=== PATIENT | male | born 1945 ===

== ENCOUNTER 2018-06-12 16:28 | Inpatient (IN) | payer OTHER ==
--- NOTE | 2018-06-12 16:40 | PDOC ---
History of Present Illness - General Stated Complaint: PAIN Time Seen by Provider: 06/12/18 16:39 - History of Present Illness Initial Comments: 06/12/18 16:50 Mr. Monteiro is a 72 yo male w/ pmh of HTN, HLD, COPD, DM, osteomyelitis, heart disease, GERD, anemia, depression, and known stage 4 sacral ulcer who presents for evaluation of 3 day history of fever, refusal to eat, and altered mental status. Health care proxy who is with him reports she has been unable to get him to eat despite several attempts and that she is worried about his ulcer and change in mental status. Past History - Past Medical History Allergies/Adverse Reactions: Allergies Allergy/AdvReac Type Severity Reaction Status Date / Time levofloxacin Allergy Verified 06/12/18 17:35 Penicillins Allergy Verified 06/12/18 17:35 Home Medications: Ambulatory Orders Acetaminophen [Tylenol -] 1,000 mg PO Q8H 06/12/18 Ascorbic Acid [Vitamin C -] 500 mg PO BID 06/12/18 Ferrous Sulfate 325 mg PO DAILY 06/12/18 Glycerin Suppository Adult - 1 each RC DAILY PRN 06/12/18 Insulin Detemir [Levemir Flextouch] 5 unit SQ HS 06/12/18 Metoprolol Tartrate [Lopressor -] 25 mg PO DAILY 06/12/18 Multivitamin [Multiple Vitamins] 1 each PO DAILY 06/12/18 Pantoprazole Sodium [Protonix] 40 mg PO DAILY 06/12/18 Polyethylene Glycol 3350 [Glycolax] 17 gm PO DAILY 06/12/18 Sennosides [Senna Laxative] 17.2 mg PO HS 06/12/18 Silver Sulfadiazine 1% Top Cr [Silvadene -] 1 applic TP BID 06/12/18 Zinc Oxide 20% Topical Oint 1 applic TP BID 06/12/18 Anemia: Yes Asthma: No Cancer: No Cardiac Disorders: Yes (artherosclerotic heart disease) CVA: No COPD: Yes CHF: No Dementia: No Diabetes: Yes GI Disorders: Yes (gerd,colitis, c diff,) Disorders: No HTN: Yes Hypercholesterolemia: Yes Liver Disease: No Psychiatric Problems: Yes (depressive) Seizures: No Thyroid Disease: No - Surgical History Abdominal Surgery: No Appendectomy: No Cardiac Surgery: No Cholecystectomy: No Lung Surgery: No Neurologic Surgery: No Orthopedic Surgery: No - Suicide/Smoking/Psychosocial Hx Smoking History: Never smoked Have you smoked in the past 12 months: No Hx Alcohol Use: No Drug/Substance Use Hx: No Substance Use Type: None Hx Substance Use Treatment: No Review of Systems - Review of Systems Comments:: 06/12/18 17:22 Unable to obtain further. *Physical Exam - Physical Exam Comments: 06/12/18 17:22 GENERAL: +Patient emaciated. Awake, alert, in no acute distress HEAD: No signs of trauma, normocephalic, atraumatic EYES: PERRLA, EOMI, sclera anicteric, conjunctiva clear ENT: Auricles normal inspection, hearing grossly normal, nares patent, oropharynx clear without exudates. Moist mucosa NECK: Normal ROM, supple, no lymphadenopathy, JVD, or masses LUNGS: No distress, speaks full sentences, clear to auscultation bilaterally HEART: Regular rate and rhythm, normal S1 and S2, no murmurs, rubs or gallops, peripheral pulses normal and equal bilaterally. ABDOMEN: Soft, nontender, normoactive bowel sounds. No guarding, no rebound. No masses EXTREMITIES: +Sacral decubitus ulcer 2x 3x 3cm deep; Normal inspection, Normal range of motion, no edema. No clubbing or cyanosis. NEUROLOGICAL: Cranial nerves II through XII grossly intact. Normal speech, normal gait, no focal sensorimotor deficits SKIN: Warm, Dry, normal turgor, no rashes or lesions noted. ED Treatment Course - LABORATORY CBC & Chemistry Diagram: 06/12/18 17:22 06/12/18 17:22 Medical Decision Making - Medical Decision Making 06/12/18 17:52 Mr. Monteiro is a 72 yo male w/ pmh as described who presents for evaluation of AMS w/ fevers chills and known infection source of grade 4 sacral ulcer; rectal temp 101.1; sepsis workup started. 06/12/18 20:09 Patient noted to be septic w/ elevated lactate at 4.1. 2L NS bolus given along w / IV antibiotics per previous sensitivities. Wound and blood cultures sent for evaluation. Patient admitted to hospitalist for further care. Laboratory Results - last 24 hr 06/12/18 06/12/18 06/12/18 17:22 17:22 17:22 WBC 9.9 RBC 3.21 L Hgb 8.5 L Hct 25.9 L MCV 80.8 D MCH 26.5 MCHC 32.8 RDW 19.6 H Plt Count 130 L D MPV 7.1 L Absolute Neuts (auto) 9.2 H Total Counted 100 Neutrophils % 93.1 H D Neutrophils % (Manual) 88.0 H D Band Neutrophils % 4.0 Lymphocytes % 3.9 L D Lymphocytes % (Manual) 5.0 L D Monocytes % 2.8 L Monocytes % (Manual) 4 Eosinophils % 0.0 D Basophils % 0.2 Nucleated RBC % 0 Hypochromia 3+ Platelet Estimate Adequate Platelet Comment No clumping noted Anisocytosis 2+ Microcytosis 1+ Macrocytosis 1+ PT with INR 12.80 INR 1.13 H PTT (Actin FS) 26.5 VBG pH 7.41 POC VBG pCO2 37.8 L POC VBG pO2 31.6 Mixed VBG HCO3 23.4 Sodium Potassium Chloride Carbon Dioxide Anion Gap BUN Creatinine Creat Clearance w eGFR Random Glucose Lactic Acid Calcium Total Bilirubin AST ALT Alkaline Phosphatase Troponin I Total Protein Albumin 06/12/18 06/12/18 06/12/18 17:22 17:22 17:22 WBC RBC Hgb Hct MCV MCH MCHC RDW Plt Count MPV Absolute Neuts (auto) Total Counted Neutrophils % Neutrophils % (Manual) Band Neutrophils % Lymphocytes % Lymphocytes % (Manual) Monocytes % Monocytes % (Manual) Eosinophils % Basophils % Nucleated RBC % Hypochromia Platelet Estimate Platelet Comment Anisocytosis Microcytosis Macrocytosis PT with INR INR PTT (Actin FS) VBG pH POC VBG pCO2 POC VBG pO2 Mixed VBG HCO3 Sodium 133 L Potassium 5.0 Chloride 99 Carbon Dioxide 25 Anion Gap 9 BUN 64 H Creatinine 1.6 H Creat Clearance w eGFR 42.46 Random Glucose 172 H Lactic Acid 4.1 H* Calcium 8.7 Total Bilirubin 1.0 AST 157 H ALT 44 Alkaline Phosphatase 683 H Troponin I < 0.02 Cancelled Total Protein 6.6 Albumin 2.0 L 06/12/18 19:04 WBC RBC Hgb Hct MCV MCH MCHC RDW Plt Count MPV Absolute Neuts (auto) Total Counted Neutrophils % Neutrophils % (Manual) Band Neutrophils % Lymphocytes % Lymphocytes % (Manual) Monocytes % Monocytes % (Manual) Eosinophils % Basophils % Nucleated RBC % Hypochromia Platelet Estimate Platelet Comment Anisocytosis Microcytosis Macrocytosis PT with INR INR PTT (Actin FS) VBG pH POC VBG pCO2 POC VBG pO2 Mixed VBG HCO3 Sodium Potassium Chloride Carbon Dioxide Anion Gap BUN Creatinine Creat Clearance w eGFR Random Glucose Lactic Acid 3.2 H* Calcium Total Bilirubin AST ALT Alkaline Phosphatase Troponin I Total Protein Albumin *DC/Admit/Observation/Transfer Diagnosis at time of Disposition: Sacral decubitus ulcer, stage IV Sepsis Qualifiers: Sepsis type: sepsis due to unspecified organism Qualified Code(s): A41.9 - Sepsis, unspecified organism - Discharge Dispostion Decision to Admit order: Yes - Referrals - Patient Instructions - Post Discharge Activity
[2018-06-12] MEDS ORDERED: ACETAMINOPHEN 1000 MG/100 ML VIAL (NON FORMULARY) IVPB ONE (16:55)
[2018-06-12] MEDS ORDERED: SODIUM CHLORIDE 1,000 ML IV STA ×3 (16:55→19:47)
[2018-06-12] MEDS ORDERED: VANCOMYCIN 1,000 MG in DEXTROSE 5%-WATER - 250 ML IVPB ONE ×2 (17:09→17:15)
[2018-06-12] MEDS ORDERED: ERTAPENEM SODIUM 1 GM in SODIUM CHLORIDE 50 ML IVPB ONE (17:09)
[2018-06-12] MEDS ORDERED: VANCOMYCIN 1 GRAM (PRE-DOCKED) 1,000 MG/250 ML BAG IVPB ONE (17:25)
[2018-06-12] MEDS ORDERED: ACETAMINOPHEN INJECTION 100 ML IVPB ONE (17:25)
[2018-06-12 17:28] LABS: BASO % 0.2 % (0-2.0); HEMATOCRIT 25.9 % (35.4-49); HEMOGLOBIN 8.5 GM/dL (11.7-16.9); LYMPH % 3.9 % (8-40); MCH 26.5 pg (25.7-33.7); MCHC 32.8 g/dl (32.0-35.9); MEAN CELL VOLUME 80.8 fl (80-96); MEAN PLT VOLUME 7.1 fl (7.5-11.1); MONO % 2.8 % (3.8-10.2); NEUT % 93.1 % (42.8-82.8); PLATELET COUNT 130 K/MM3 (134-434); RBC 3.21 M/mm3 (4.00-5.60); RDW 19.6 % (11.9-15.9); VENOUS PC02 37.8 mmHg (38-52); VENOUS PH 7.41 (7.32-7.42); VENOUS PO2 31.6 mmHg (28-48); WHITE BLOOD COUNT 9.9 K/mm3 (4.0-10.0)
--- NOTE | 2018-06-12 17:40 | PDOC ---
Attending Attestation - HPI HPI: 06/12/18 18:12 History obtained from prior charts and health care proxy. The patient is a 72-year-old male from [facility] with past medical history significant for CVA (2012; R sided residual weakness), HTN, HLD, Type 1 DM, osteomyelitis, anemia, COPD and Atherosclerotic heart disease presents to the emergency department via [facility] with AMS and loss of appetite. Patient presents to the ED with his health care proxy (HCP). As per HCP, for the past 3 days, the patients been refusing to eat, despite several attempts by her. Allergies: levofloxacin and Penicillins. Unable to obtain details from the patient. Social history: No past or present use of tobacco, alcohol, or recreational drug use. Surgical history: None reported PCP: Dr. Correa GI: Dr. Alston - Medical Decision Making 06/12/18 18:14 Documentation prepared by Esther Fletcher, acting as medical record librarians teacher for Fern Soriano MD. <Esther Fletcher - Last Filed: 06/12/18 18:12> - Resident Resident Name: Cameron Gallegos - ED Attending Attestation I have performed the following: I have examined & evaluated the patient, The case was reviewed & discussed with the resident, I agree w/resident's findings & plan, Exceptions are as noted - HPI HPI: 06/12/18 17:41 Mr Monteiro is a 72 yo M h/o CVA (2012, right-sided weakness), recurrent C. diff colitis, mild dementia HTN, HLD, IDDM, osteomyelitis, chronic sacral ulcer, chronic right heel eschar s/p recent recent admission where he was found to be anemic (refused transfusion or endoscopy), septic related to UTI (Proteus, treated with Ertapenam), Hyperkalemic and JORDAN. Pt treated and transferred to SNF. Pt health care proxy is bedside and states she was concerned because of altered mental status AND refusal to eat - Physicial Exam PE: 06/12/18 19:48 on examination Pt is awake and alert Responsive to painful stimuli Pale appearing EOMI RRR CTA B/L - Medical Decision Making 06/12/18 19:05 Laboratory Tests 06/12/18 06/12/18 06/12/18 17:22 17:22 17:22 WBC 9.9 Hgb 8.5 L Hct 25.9 L Plt Count 130 L D Neutrophils % 93.1 H D Band Neutrophils % 4.0 INR 1.13 H VBG pH 7.41 POC VBG pCO2 37.8 L POC VBG pO2 31.6 Mixed VBG HCO3 23.4 Sodium Potassium Chloride Carbon Dioxide BUN Creatinine Random Glucose Lactic Acid AST ALT Troponin I 06/12/18 06/12/18 17:22 17:22 WBC Hgb Hct Plt Count Neutrophils % Band Neutrophils % INR VBG pH POC VBG pCO2 POC VBG pO2 Mixed VBG HCO3 Sodium 133 L Potassium 5.0 Chloride 99 Carbon Dioxide 25 BUN 64 H Creatinine 1.6 H Random Glucose 172 H Lactic Acid 4.1 H* AST 157 H ALT 44 Troponin I < 0.02 Pt presents with ams and weakness Unable to obtain urine (straight cath'ed at least 3 times, last time with coude , no urine) Labs demonstrate like hemo concentration given increased creatinine, elevated BUN, hgb now 8.5 from 7.5 when he left the hospital) No leukocytosis however pt febrile Will cover broadly currently not being treated for C diff (no diarrhea) no cough or hypoxia, CXR <Fern Soriano - Last Filed: 06/12/18 19:54>
[2018-06-12] MEDS: MEROPENEM 1 GM in DEXTROSE 5%-WATER 100 ML IVPB ONE (17:53)
[2018-06-12 17:56] LABS: INR 1.13 (0.83-1.09); PROTHROMBIN TIME (PATIENT) 12.8 SEC (9.7-13.0)
[2018-06-12 17:59] LABS: ACTIVATED PTT 26.5 SECONDS (25.2-36.5)
[2018-06-12 18:15] LABS: ANISOCYTOSIS 2+; MACROCYTOSIS 1+; PLATELET ESTIMATE ADEQUATE
[2018-06-12 18:46] LABS: ALK PHOS 683 U/L (45-117); ANION GAP 9 MMOL/L (8-16); BLOOD UREA NITROGEN 64 mg/dL (7-18); CALCIUM 8.7 mg/dL (8.5-10.1); CHLORIDE 99 mmol/L (98-107); CO2 25 mmol/L (21-32); CREATININE 1.6 mg/dL (0.55-1.3); GLUCOSE,RANDOM 172 mg/dL (74-106); SGOT/AST 157 U/L (15-37); SGPT/ALT 44 U/L (13-61); SODIUM 133 mmol/L (136-145); TOT PROT 6.6 g/dl (6.4-8.2)
--- NOTE | 2018-06-12 19:59 | PN ---
Teaching Attending Note Name of Resident: Sharon Pitts ATTENDING PHYSICIAN STATEMENT I saw and evaluated the patient. I reviewed the resident's note and discussed the case with the resident. I agree with the resident's findings and plan as documented. SUBJECTIVE: Patient is a 72 year old man from [facility] with past medical history significant for CVA (2012; R sided residual weakness), HTN, HLD, insulin- treated DM, osteomyelitis, anemia, COPD and Atherosclerotic heart disease who presents to the ER with complaints of AMS and loss of appetite. Patient presents to the ER with his health care proxy (HCP). As per HCP, for the past 3 days, the patients been refusing to eat, despite several attempts by her. Patient is allergic to levofloxacin and Penicillins. Urine could not be obtained in the ER. OBJECTIVE: Alert and cachectic Vital Signs Period Temp Pulse Resp BP Sys/Prado Pulse Ox Last 24 Hr 98.9 F-101.1 F 81-90 18-18 121-132/67-74 97-97 HEENT: No Jaundice, eye redness or discharge, PERRLA, EOMI. Normocephalic, atraumatic. External ears are normal and hearing is grossly intact. No nasal discharge. Neck: Supple, nontender. No palpable adenopathy or thyromegaly. No JVD Chest: Good effort. Clear to auscultation and percussion. Heart: Regular. No S3, rub or murmur Abdomen: Not distended, soft, nontender and no HSM. No rebound or guarding. Normoactive bowel sounds. Ext: Peripheral pulses intact. No leg edema. Stage 4 sacral decubitus ulcer. Skin: Warm and dry. No petechiae, rash or ecchymosis. Neuro: Alert. Oriented x3. CN 2-12 grossly intact. Wheelchair use. Global weakness with rigidity. Current Medications Generic Name Dose Route Start Last Admin Trade Name Freq PRN Reason Stop Dose Admin Sodium Chloride 1,000 mls @ 1,000 mls/hr 06/12/18 19:47 Normal Saline - IV 06/12/18 20:46 ASDIR STA Home Medications Medication Instructions Recorded Acetaminophen [Tylenol -] 1,000 mg PO Q8H 06/12/18 Ascorbic Acid [Vitamin C -] 500 mg PO BID 06/12/18 Ferrous Sulfate 325 mg PO DAILY 06/12/18 Glycerin Suppository Adult - 1 each RC DAILY PRN 06/12/18 Insulin Detemir [Levemir Flextouch] 5 unit SQ HS 06/12/18 Metoprolol Tartrate [Lopressor -] 25 mg PO DAILY 06/12/18 Multivitamin [Multiple Vitamins] 1 each PO DAILY 06/12/18 Pantoprazole Sodium [Protonix] 40 mg PO DAILY 06/12/18 Polyethylene Glycol 3350 [Glycolax] 17 gm PO DAILY 06/12/18 Sennosides [Senna Laxative] 17.2 mg PO HS 06/12/18 Silver Sulfadiazine 1% Top Cr 1 applic TP BID 06/12/18 [Silvadene -] Zinc Oxide 20% Topical Oint 1 applic TP BID 06/12/18 Abnormal Lab Results 06/12/18 06/12/18 06/12/18 17:22 17:22 17:22 RBC 3.21 L Hgb 8.5 L Hct 25.9 L RDW 19.6 H Plt Count 130 L D MPV 7.1 L Absolute Neuts (auto) 9.2 H Neutrophils % 93.1 H D Neutrophils % (Manual) 88.0 H D Lymphocytes % 3.9 L D Lymphocytes % (Manual) 5.0 L D Monocytes % 2.8 L INR 1.13 H POC VBG pCO2 37.8 L Sodium BUN Creatinine Random Glucose Lactic Acid AST Alkaline Phosphatase Albumin 06/12/18 06/12/18 06/12/18 17:22 17:22 19:04 RBC Hgb Hct RDW Plt Count MPV Absolute Neuts (auto) Neutrophils % Neutrophils % (Manual) Lymphocytes % Lymphocytes % (Manual) Monocytes % INR POC VBG pCO2 Sodium 133 L BUN 64 H Creatinine 1.6 H Random Glucose 172 H Lactic Acid 4.1 H* 3.2 H* AST 157 H Alkaline Phosphatase 683 H Albumin 2.0 L ASSESSMENT AND PLAN: 1. Sepsis of unclear source - No acute pathology on CXR. UA not available so can 't rule out UTI. Sacral decubitus ulcer is likely source. Will treat with Vancomycin and Meropenem pending wound culture and UA. Continue IV NS and trend lactic acid level. Elevated LFTs may be due to sepsis. Provide wound care and eggshell mattress/donut pillow. Consult ID 2. Hypoalbuminemia - Possibly due to combined effects of malnutrition and inflammation associated with comorbid chronic conditions. Will rule out proteinuria and ensure adequate dietary protein intake and also consult medical assembler. 3. DM - For now, we will hold the home diabetes drugs and implement sliding scale insulin regimen. Provide comprehensive diabetes care with patient teaching and counseling about the importance of euglycemia, eye care and foot care. 4. JORDAN - Likely multifactorial and may have underlying CKD. Will repeat cho catheterization after hydration and get kidney sonogram. Will consult nephrology and avoid nephrotoxic agents such as NSAIDS, aminoglycosides, contrast dyes and certain Alternative medicine products. 5. Anemia - Likely multifactorial including chronic disease and ?CKD. Will do basic anemia work up including serial stool guaiacs, reticulocyte count and iron studies. Would benefit from Procrit therapy once iron replete - to preempt blood transfusion. 6. DVT prophylaxis - Heparin 5000u sq tid. 7. Advance directives - Full code
[2018-06-12] MEDS ORDERED: MORPHINE SULFATE 2 MG/ML VIAL IVPUSH PRN (21:46)
--- NOTE | 2018-06-12 21:54 | HP ---
CHIEF COMPLAINT: fevers x3 days, AMS and loss of appetite x 1 week PCP: HISTORY OF PRESENT ILLNESS: Pt is a 72 yo M from [facility] with Signif PMHx for parkinsons disease, CVA (2012; R sided residual weakness), HTN, HLD, DM, osteomyelitis, anemia, COPD and Atherosclerotic heart disease BIBEMS for worsening AMS and loss of appetite. Per Health care proxy by the bedside, Pt has been in [facility] for the past month and was scheduled to be d/c home when he started having increasing lethargy, drowsiness, loss of appetite and now inability to feed. He has had recurrent infections and treatment for proteus infection of a chronic sacral wound, and of late, she said cxs also grew klebsiella. Since the last round of antibiotic treatment about 2 weeks ago, pts appetite has worsened with one episode of vomiting last thursday. No loose stool. Last bowel movement said to be well formed yesterday, non bloody. No hx of sick contacts, although pt leaves in a NH. In the past he has ambulated with a wheel chair, but over the past 2 months, his ambulation has gradually decreased to be bed ridden. No hx of cough, no nasal congestion. Pt has pin rolling tremor at rest and generalized rigidity. Also has residual deficits on the R of a previous stroke. He was brought in for worsening lethargy and confusion with complete absence of PO intake. Pt has been on tylenol chronically for pain. Hx of colonoscopy could not be obtained. Urine sample could not be obtained in the ED due to failed catheterization ER course was notable for: (1)Tachycardia-90, Tmax-101.1, 121/67 (2) WBC-9.9, H&H- 8.5/25.9, platelets-130 (3) Na-133, Cr-1.6 (last Cr-1.7), Alk Ph-683, sebastian-1.0, LA-4.1 Recent Travel: PAST MEDICAL HISTORY: parkinsons disease, CVA (2012; R sided residual weakness), HTN, HLD, DM, osteomyelitis, Iron deficiency anemia, COPD/asthma Atherosclerotic heart disease chronic saccral ulcer Overactive bladder Chronic Afib candidiasis of nail and skin Chronic constipation Functional dyspepsia Insomnia Previous sepsis Depression osteomyelitis PAST SURGICAL HISTORY: AICD (L chest wall) Appendectomy Social History: Smoking: Alcohol: Drugs: Family History: Allergies levofloxacin Allergy (Verified 06/12/18 17:35) Penicillins Allergy (Verified 06/12/18 17:35) HOME MEDICATIONS: Home Medications Medication Instructions Recorded Acetaminophen [Tylenol -] 1,000 mg PO Q8H 06/12/18 Ascorbic Acid [Vitamin C -] 500 mg PO BID 06/12/18 Ferrous Sulfate 325 mg PO DAILY 06/12/18 Glycerin Suppository Adult - 1 each RC DAILY PRN 06/12/18 Insulin Detemir [Levemir Flextouch] 5 unit SQ HS 06/12/18 Metoprolol Tartrate [Lopressor -] 25 mg PO DAILY 06/12/18 Multivitamin [Multiple Vitamins] 1 each PO DAILY 06/12/18 Pantoprazole Sodium [Protonix] 40 mg PO DAILY 06/12/18 Polyethylene Glycol 3350 [Glycolax] 17 gm PO DAILY 06/12/18 Sennosides [Senna Laxative] 17.2 mg PO HS 06/12/18 Silver Sulfadiazine 1% Top Cr 1 applic TP BID 06/12/18 [Silvadene -] Zinc Oxide 20% Topical Oint 1 applic TP BID 06/12/18 REVIEW OF SYSTEMS Unclear ROS got through health care proxy. PHYSICAL EXAMINATION Vital Signs - 24 hr 06/12/18 06/12/18 06/12/18 16:30 18:40 19:17 Temperature 101.1 F H 98.9 F Pulse Rate 90 Pulse Rate [ 81 Apical] Respiratory 18 18 Rate Blood Pressure 121/67 Blood Pressure 132/74 [Right Arm] O2 Sat by Pulse 97 97 Oximetry (%) 06/12/18 06/12/18 06/12/18 20:59 21:34 21:41 Temperature 99.3 F 98.3 F Pulse Rate 92 H Pulse Rate [ 82 Apical] Respiratory 18 18 20 Rate Blood Pressure 123/80 127/67 Blood Pressure 120/67 [Right Arm] O2 Sat by Pulse 95 98 Oximetry (%) GENERAL: Somnolent but agitated, yelling to be left alone during the exam. Knows his name, date of and age, HEAD: Normal with no signs of trauma. EYES: Appear miosed, slowly reactive, sclera anicteric, conjunctiva clear. EARS, NOSE, THROAT: Dry mucous membranes. NECK: Appears increased in tone LUNGS: Poor respiratory effort bilaterally, No wheezes, and no crackles. No accessory muscle use. HEART: Regular rate and rhythm, normal S1 and S2 ABDOMEN: Scaphid. Soft, unable to assess for tenderness, bowel sounds present, MUSCULOSKELETAL: Unclear of specific muscle group tenderness with passive motion at all joints. More agitated with lower extremity motion (likely due to effect on saccrum) UPPER EXTREMITIES: Pinrolling tremor at rest on L upper extremity (said to be reduced per healthcare proxy) LOWER EXTREMITIES: Hypertonic, with withdrawal on LLE. Distal pulses 2+ bilaterally, warm. calf tenderness difficult to elicit. No peripheral edema. NEUROLOGICAL: Pt extremely agitated during physical exam and somnolent. Oriented to self. Speech relatively clear but altered and less comprehensible per healthcare proxy. No movement noted on R upper or lower extremity. Pt is noted to actively move LUE and withdraw with LLE. Hypertonia noted, more on R extremities bilaterally. 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 CBC, BMP 06/13/18 09:20 06/13/18 05:45 Laboratory Results - last 24 hr 06/12/18 06/12/18 06/12/18 17:22 17:22 17:22 WBC 9.9 RBC 3.21 L Hgb 8.5 L Hct 25.9 L MCV 80.8 D MCH 26.5 MCHC 32.8 RDW 19.6 H Plt Count 130 L D MPV 7.1 L Absolute Neuts (auto) 9.2 H Total Counted 100 Neutrophils % 93.1 H D Neutrophils % (Manual) 88.0 H D Band Neutrophils % 4.0 Lymphocytes % 3.9 L D Lymphocytes % (Manual) 5.0 L D Monocytes % 2.8 L Monocytes % (Manual) 4 Eosinophils % 0.0 D Basophils % 0.2 Nucleated RBC % 0 Hypochromia 3+ Platelet Estimate Adequate Platelet Comment No clumping noted Anisocytosis 2+ Microcytosis 1+ Macrocytosis 1+ PT with INR 12.80 INR 1.13 H PTT (Actin FS) 26.5 VBG pH 7.41 POC VBG pCO2 37.8 L POC VBG pO2 31.6 Mixed VBG HCO3 23.4 Sodium Potassium Chloride Carbon Dioxide Anion Gap BUN Creatinine Creat Clearance w eGFR Random Glucose Lactic Acid Calcium Total Bilirubin AST ALT Alkaline Phosphatase Troponin I Total Protein Albumin 06/12/18 06/12/1818 17:22 17:22 17:22 WBC RBC Hgb Hct MCV MCH MCHC RDW Plt Count MPV Absolute Neuts (auto) Total Counted Neutrophils % Neutrophils % (Manual) Band Neutrophils % Lymphocytes % Lymphocytes % (Manual) Monocytes % Monocytes % (Manual) Eosinophils % Basophils % Nucleated RBC % Hypochromia Platelet Estimate Platelet Comment Anisocytosis Microcytosis Macrocytosis PT with INR INR PTT (Actin FS) VBG pH POC VBG pCO2 POC VBG pO2 Mixed VBG HCO3 Sodium 133 L Potassium 5.0 Chloride 99 Carbon Dioxide 25 Anion Gap 9 BUN 64 H Creatinine 1.6 H Creat Clearance w eGFR 42.46 Random Glucose 172 H Lactic Acid 4.1 H* Calcium 8.7 Total Bilirubin 1.0 AST 157 H ALT 44 Alkaline Phosphatase 683 H Troponin I < 0.02 Cancelled Total Protein 6.6 Albumin 2.0 L 06/12/18 19:04 WBC RBC Hgb Hct MCV MCH MCHC RDW Plt Count MPV Absolute Neuts (auto) Total Counted Neutrophils % Neutrophils % (Manual) Band Neutrophils % Lymphocytes % Lymphocytes % (Manual) Monocytes % Monocytes % (Manual) Eosinophils % Basophils % Nucleated RBC % Hypochromia Platelet Estimate Platelet Comment Anisocytosis Microcytosis Macrocytosis PT with INR INR PTT (Actin FS) VBG pH POC VBG pCO2 POC VBG pO2 Mixed VBG HCO3 Sodium Potassium Chloride Carbon Dioxide Anion Gap BUN Creatinine Creat Clearance w eGFR Random Glucose Lactic Acid 3.2 H* Calcium Total Bilirubin AST ALT Alkaline Phosphatase Troponin I Total Protein Albumin ASSESSMENT/PLAN: Pt is a 72 yo M from [facility] with Signif PMHx for parkinsons disease, CVA (2012; R sided residual weakness), HTN, HLD, DM, anemia, COPD and Atherosclerotic heart disease, chronic saccral ulcer, Overactive bladder, Chronic Afib, candidiasis of nail and skin, osteomyelitis, Chronic constipation , Functional dyspepsia, Insomnia, Previous sepsis, Depression, BIBEMS for worsening AMS and loss of appetite. acute metab encephalopathy likely secondary to severe sepsis SIRS criteria- Tmax-101.1, HR-90, Lactic acidosis 4.1, + saccral ulcer R/O UTI, urine samples pending Allergy to levoflox and pens, received vanc/meropenem in ED Cont vanc/meropenem, ID consult_ Dr Chapin Fluids IV NS- received 2L , Cont bolus and maintain at 100/hr Repeat LA NPO BCx, wound cx pending Attempt repeat straight cath following hydration for UA/ucx Severe sepsis, unclear source but presence of chronic saccral ulcer Saccral Decubitus ulcer Wound cx, bcx, Meropenem ID JORDAN on CKD Likely prerenal in setting of acute sepsis with poor intake Patient BUN/Cr (03/30/[address] records-34/0.8, 06/11/18-36/1.6) Continue aggressive hydration bladder/kidney US Urine lytes Nephro consult Avoid nephrotoxic drugs DM Pt noted to be insulin dependent on 5u levemir HS Not sure of last dose considering poor intake, currently not hypoglycemic ISS ACHS, BGM ACHS Anemia MCV- 80 Pt has a hx of normocytic deficiency anemia 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 Previous work up showed elevated folate/Vit B12, with low iron, low TIBC- likely ACD or mixed picture Pt does not accept blood products Medication reconciliation with CT notes shows Feosol 325daily To be continued when stable Elevated liver enzymes Alk Ph and AST Pt has been chronically on tylenol for pain Could be bone related, R/O cholestasis, sebastian-1.0 GGT, lipase, repeat LFTs Pt may benefit from an abdominal US, would hold off contrast imaging at this time considering the JORDAN Hypoalbuminemia Could be in the setting of chronic disease or In the setting of reduced intake and a chronic ulcer Dietitician consult R/o proteinuria with hx of DM, Chronic Saccral ulcer Could be the source of the sepsis Local wound care Consult Malorie parkinsons disease Cogwheel rigidity, hypertonia and pin rolling tremor at rest Likely progressive and contributing to AMS No parkinsons medications noted Pt could follow as an outpt with neurology when stable Atherosclerotic heart disease/Chronic Afib Rate controlled at this time Likely not AC due to chronic anemia Cont Metoprolol Overactive bladder/ candidiasis of nail and skin Topical skincare, vesicare Adequate toilet hygiene to minimize recurrent systemic infections Hx of osteomyelitis, ID on case Chronic constipation/Functional dyspepsia Last bowel movement a day prior to presentation No evidence of diarrhea/constipation Monitor Insomnia, At baseline, now hypersomnolent as evidence of AMS Cont sepsis mx PPx Heparin sq Code status Full code Pt per health care proxy does not accept blood/ blood products for religous reasons Visit type - Emergency Visit Emergency Visit: Yes ED Registration Date: 06/12/18 Care time: The patient presented to the Emergency Department on the above date and was hospitalized for further evaluation of their emergent condition. - New Patient This patient is new to me today: Yes Date on this admission: 06/13/18 - Critical Care Critical Care patient: No Hospitalist Screening - Colonoscopy Questionnaire Colonoscopy Questionnaire: Colonoscopy Questionnaire - Patient: 50 - 75 years old and never had a screening colonoscopy: Yes History of colon or rectal polyps, or CA: Unknown History of IBD, Crohn's disease or UC: Unknown History of abdominal radiation therapy as a child: Unknown - Relative: 1 with colon or rectal CA, or polyps at age 60 or younger: Unknown Colon or rectal CA diagnosed at age 45 or younger: Unknown Multiple relatives with colon or rectal CA: Unknown - Outcome: Screening Result: Positive Screen
[2018-06-12] MEDS: HEPARIN NA (PORCINE) 5,000 UNITS/ML 1ML VIAL SQ SCH (22:05)
[2018-06-12] MEDS: INSULIN SLIDING SCALE (NOVOLOG) 1 VIAL SQ SCH (22:09)
[2018-06-13] MEDS ORDERED: ACETAMINOPHEN 650 MG SUPP.RECT PR PRN (00:10)
[2018-06-13] MEDS ORDERED: MEROPENEM 1 GM in DEXTROSE 5%-WATER 100 ML IVPB ONE ×2 (02:00→08:15)
[2018-06-13] MEDS ORDERED: SODIUM CHLORIDE 1,000 ML IV STA ×2 (02:56→05:15)
[2018-06-13] MEDS: SODIUM CHLORIDE 1,000 ML IV SCH ×2 (05:03→12:00)
[2018-06-13] MEDS: HEPARIN NA (PORCINE) 5,000 UNITS/ML 1ML VIAL SQ SCH ×2 (05:03→21:28)
[2018-06-13] MEDS: INSULIN SLIDING SCALE (NOVOLOG) 1 VIAL SQ SCH ×4 (06:00→22:35)
[2018-06-13 07:14] LABS: EOS % 0.6 % (0-4.5); HEMATOCRIT 21.5 % (35.4-49); LYMPH % 7.4 % (8-40); MCH 25.8 pg (25.7-33.7); MEAN CELL VOLUME 80.7 fl (80-96); MEAN PLT VOLUME 7.6 fl (7.5-11.1); MONO % 6.4 % (3.8-10.2); NEUT % 85.6 % (42.8-82.8); PLATELET COUNT 82 K/MM3 (134-434); RBC 2.66 M/mm3 (4.00-5.60); RDW 19.6 % (11.9-15.9); WHITE BLOOD COUNT 11.1 K/mm3 (4.0-10.0)
[2018-06-13 08:02] LABS: ALBUMIN 1.7 g/dl (3.4-5.0); ALK PHOS 553 U/L (45-117); ANION GAP 11 MMOL/L (8-16); BILIRUBIN,TOTAL 1.2 mg/dL (0.2-1); BLOOD UREA NITROGEN 57 mg/dL (7-18); CALCIUM 8.3 mg/dL (8.5-10.1); CHLORIDE 106 mmol/L (98-107); CO2 22 mmol/L (21-32); CREATININE 1.2 mg/dL (0.55-1.3); GLUCOSE,RANDOM 116 mg/dL (74-106); LIPASE 106 U/L (73-393); MAGNESIUM 1.9 mg/dL (1.8-2.4); PHOSPHOROUS 2.9 mg/dL (2.5-4.9); POTASSIUM 4.5 mmol/L (3.5-5.1); SGOT/AST 180 U/L (15-37); SGPT/ALT 38 U/L (13-61); SODIUM 139 mmol/L (136-145); TOT PROT 5.6 g/dl (6.4-8.2)
[2018-06-13 08:16] LABS: HEMOGLOBIN 6.9 GM/dL (11.7-16.9)
[2018-06-13] MEDS: MEROPENEM 1 GM in DEXTROSE 5%-WATER 100 ML IVPB ONE (09:30)
[2018-06-13] MEDS: MEROPENEM 1 GM in DEXTROSE 5%-WATER 100 ML IVPB SCH ×3 (09:30→18:14)
[2018-06-13 09:39] LABS: GAMMA GLUTAMYL TRANSPEPTIDASE 455 U/L (5-85)
[2018-06-13 09:55] LABS: HEMATOCRIT 24.9 % (35.4-49); HEMOGLOBIN 7.9 GM/dL (11.7-16.9); MCH 25.7 pg (25.7-33.7); MCHC 31.7 g/dl (32.0-35.9); MEAN PLT VOLUME 7.4 fl (7.5-11.1); PLATELET COUNT 93 K/MM3 (134-434); RBC 3.08 M/mm3 (4.00-5.60); RDW 19.8 % (11.9-15.9); WHITE BLOOD COUNT 11.1 K/mm3 (4.0-10.0)
[2018-06-13 10:07] LABS: URINE APPEARANCE TURBID; URINE BILIRUBIN NEGATIVE (<2.0 mg/dL); URINE COLOR AMBER; URINE GLUCOSE (UA) NEGATIVE (NEGATIVE); URINE KETONE NEGATIVE (NEGATIVE); URINE NITRITE POSITIVE (NEGATIVE); URINE UROBILINOGEN NEGATIVE mg/dL (0.2-1.0)
[2018-06-13 10:09] LABS: URINE LEUK ESTERASE 3+ (NEGATIVE); URINE PROTEIN 2+ (NEGATIVE)
[2018-06-13 10:11] LABS: URINE BACTERIA MANY /hpf (NONE SEEN); URINE HYALINE CAST 7 /lpf; URINE MUCUS RARE
--- NOTE | 2018-06-13 11:36 | CON.ID ---
Consult Consult Specialty:: infectious diseases Reason for Consultation:: sepsis. wound infection,gm negative bacteremia - History of Present Illness Chief Complaint: weakness fever History of Present Illness: 72 yo M from [facility] with Signif PMHx for parkinsons disease, CVA (2012 ; R sided residual weakness), HTN, HLD, DM, osteomyelitis, anemia, COPD and Atherosclerotic heart disease BIBEMS for worsening AMS and loss of appetite. Per Health care proxy by the bedside, Pt has been in [facility] for the past month and was scheduled to be d/c home when he started having increasing lethargy, drowsiness, loss of appetite and now inability to feed. He has had recurrent infections and treatment for proteus infection of a chronic sacral wound, and of late, she said cxs also grew klebsiella. Since the last round of antibiotic treatment about 2 weeks ago, pts appetite has worsened with one episode of vomiting last thursday. No loose stool. Last bowel movement said to be well formed yesterday, non bloody. No hx of sick contacts, although pt leaves in a NH. 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 Cardio/Vascular: Yes: HTN, Hyperlipdemia Hepatobiliary: Yes: Other (Hepatitis but unsure which type) Renal/: Yes: Renal Inusuff Infectious Disease: Yes: C-Diff Psych: Yes: Depression Endocrine: Yes: Diabetes Mellitus (IDDMI) - Past Surgical History Past Surgical History: Yes: Appendectomy (young child ) - Alcohol/Substance Use Hx Alcohol Use: No History of Substance Use: reports: None - Smoking History Smoking history: Never smoked Have you smoked in the past 12 months: No - Social History Usual Living Arrangement: Prison 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 History of Recent Travel: No Home Medications - Allergies Allergies/Adverse Reactions: Allergies Allergy/AdvReac Type Severity Reaction Status Date / Time levofloxacin Allergy Verified 06/12/18 17:35 Penicillins Allergy Verified 06/12/18 17:35 - Home Medications Home Medications: Ambulatory Orders Acetaminophen [Tylenol -] 1,000 mg PO Q8H 06/12/18 Ascorbic Acid [Vitamin C -] 500 mg PO BID 06/12/18 Ferrous Sulfate 325 mg PO DAILY 06/12/18 Glycerin Suppository Adult - 1 each RC DAILY PRN 06/12/18 Insulin Detemir [Levemir Flextouch] 5 unit SQ HS 06/12/18 Metoprolol Tartrate [Lopressor -] 25 mg PO DAILY 06/12/18 Multivitamin [Multiple Vitamins] 1 each PO DAILY 06/12/18 Pantoprazole Sodium [Protonix] 40 mg PO DAILY 06/12/18 Polyethylene Glycol 3350 [Glycolax] 17 gm PO DAILY 06/12/18 Sennosides [Senna Laxative] 17.2 mg PO HS 06/12/18 Silver Sulfadiazine 1% Top Cr [Silvadene -] 1 applic TP BID 06/12/18 Zinc Oxide 20% Topical Oint 1 applic TP BID 06/12/18 Review of Systems - Review of Systems Constitutional: reports: Fever, Weakness, Other Eyes: reports: No Symptoms HENT: reports: No Symptoms Neck: reports: No Symptoms Cardiovascular: reports: No Symptoms Respiratory: reports: No Symptoms Gastrointestinal: reports: No Symptoms Genitourinary: reports: No Symptoms Musculoskeletal: reports: Muscle Weakness Integumentary: reports: No Symptoms Neurological: reports: No Symptoms Endocrine: reports: No Symptoms Hematology/Lymphatic: reports: No Symptoms Physical Exam Vital Signs: Vital Signs Temperature 97.7 F 06/13/18 09:35 Pulse Rate 99 H 06/13/18 09:02 Respiratory Rate 24 H 06/13/18 09:02 Blood Pressure 127/65 06/13/18 09:02 O2 Sat by Pulse Oximetry (%) 98 06/12/18 21:34 Constitutional: Yes: Calm, Mild Distress, Thin, Other (failure to thrive) Eyes: Yes: Conjunctiva Clear Neck: Yes: Supple, Trachea Midline Cardiovascular: Yes: Regular Rate and Rhythm Respiratory: Yes: Regular, CTA Bilaterally Gastrointestinal: Yes: Normal Bowel Sounds, Soft Musculoskeletal: Yes: WNL Extremities: Yes: WNL Wound/Incision: Yes: Other (sacral decubitus) Neurological: Yes: Alert, Oriented Psychiatric: Yes: Alert, Oriented Labs: CBC, BMP 06/13/18 09:20 06/13/18 05:45 Imaging - Results Chest X-ray: Report Reviewed, Image Reviewed Assessment/Plan patient with multiple medical problems coming in with sepsis uti and bacteremia with elevated liver enzymes and fever nimisha gm negative bacteremia wound infection dm sepsis uti plan we will continue meropenam await for all cx reports hydration nutrition rest as per he team
[2018-06-13] MEDS ORDERED: INSULIN (NOVOLOG) ASPART 100 UNITS/ML 10ML VIAL ONE (11:54)
--- NOTE | 2018-06-13 12:21 | PN ---
Progress Note (short form) - Note Progress Note: Subjective: The patient was seen at the bedside, he is aggravated and cursing. He is refusing an exam at this time. Blood cultures preliminary gram negative bacilli. Repeat cultures tomorrow Current Medications Generic Name Dose Route Start Last Admin Trade Name Freq PRN Reason Stop Dose Admin Sodium Chloride 1,000 mls @ 150 mls/hr 06/13/18 02:45 06/13/18 05:03 Normal Saline - IV 150 mls/hr ASDIR JEF Administration Meropenem 1 gm/ Dextrose 100 mls @ 200 mls/hr 06/13/18 11:45 IVPB Q8H-IV JEF Insulin Aspart 1 vial 06/12/18 22:00 06/13/18 06:00 Novolog Vial Sliding Scale - SQ Not Given ACHS JEF Protocol Morphine Sulfate 0.5 mg 06/12/18 21:46 Morphine Sulfate IVPUSH Q4H PRN PAIN LEVEL 6-10 Objective: Vital Signs Period Temp Pulse Resp BP Sys/Prado Pulse Ox Last 24 Hr 97.7 F-101.1 F 81-99 18-24 120-132/62-80 95-98 Physical Exam: Patient refused CBCD WBC 11.1 K/mm3 (4.0-10.0) H 06/13/18 09:20 RBC 3.08 M/mm3 (4.00-5.60) L 06/13/18 09:20 Hgb 7.9 GM/dL (11.7-16.9) L 06/13/18 09:20 Hct 24.9 % (35.4-49) L D 06/13/18 09:20 MCV 81.0 fl (80-96) 06/13/18 09:20 MCHC 31.7 g/dl (32.0-35.9) L 06/13/18 09:20 RDW 19.8 % (11.9-15.9) H 06/13/18 09:20 Plt Count 93 K/MM3 (134-434) L 06/13/18 09:20 MPV 7.4 fl (7.5-11.1) L 06/13/18 09:20 CMP Sodium 139 mmol/L (136-145) 06/13/18 05:45 Potassium 4.5 mmol/L (3.5-5.1) 06/13/18 05:45 Chloride 106 mmol/L (98-107) 06/13/18 05:45 Carbon Dioxide 22 mmol/L (21-32) 06/13/18 05:45 Anion Gap 11 MMOL/L (8-16) 06/13/18 05:45 BUN 57 mg/dL (7-18) H 06/13/18 05:45 Creatinine 1.2 mg/dL (0.55-1.3) 06/13/18 05:45 Creat Clearance w eGFR 59.18 (>60) 06/13/18 05:45 Random Glucose 116 mg/dL (74-106) H 06/13/18 05:45 Calcium 8.3 mg/dL (8.5-10.1) L 06/13/18 05:45 Total Bilirubin 1.2 mg/dL (0.2-1) H 06/13/18 05:45 AST 180 U/L (15-37) H 06/13/18 05:45 ALT 38 U/L (13-61) 06/13/18 05:45 Alkaline Phosphatase 553 U/L (45-117) H 06/13/18 05:45 Total Protein 5.6 g/dl (6.4-8.2) L 06/13/18 05:45 Albumin 1.7 g/dl (3.4-5.0) L 06/13/18 05:45 CARDIAC ENZYMES Troponin I < 0.02 ng/ml (0.00-0.05) 06/12/18 17:22 Microbiology 06/12/18 17:22 Blood - Peripheral Venous Blood Culture - Preliminary Pending Organism 06/12/18 17:10 Blood - Peripheral Venous Blood Culture - Preliminary Pending Organism Assessment: This is a 72 year old male with PMHx of CVA (2012), HTN, hyperlipidemia, DM, osteomyelitis, anemia, COPD, atherosclerotic heart disease who presented to the ED from [facility] with AMS and loss of appetite. Plan: 1) Acute metabolic encephalopathy 2/2 bacteremia - Patient's mental status back to baseline per HCP 2) Bacteremia - HCP reports the patient was recently found to have a proteus mirabilis at [facility] and was started on an antibiotic that was not able to clear the infection (does not know name of abx) - Preliminary gram negative bacilli - Continue Meropenem - Repeat blood cultures in the AM - F/u ID consult 3) Hx of osteomyelitis, decubitus ulcer on sacrum - Turn and reposition q2h - F/u plastic surgery consult for wound care orders. Continue home medications for now 4) JORDAN - Resolved 5) HTN - Continue Lopressor (hold parameters) 6) Anemia - Hgb around baseline - Continue ferrous sulfate 7) DM - BGM ACHS - ISS ACHS 8) F/E/N: - Monitor electrolytes - Diabetic diet 9) Prophylaxis: - Heparin 5,000u sq bid 10) Dispo: - As patient came from [facility], will transfer care to Dr. Mcgee. Service called at 12:15pm Visit type - Emergency Visit Emergency Visit: Yes ED Registration Date: 06/12/18 Care time: The patient presented to the Emergency Department on the above date and was hospitalized for further evaluation of their emergent condition. - New Patient This patient is new to me today: Yes Date on this admission: 06/13/18 - Critical Care Critical Care patient: No
--- NOTE | 2018-06-13 12:27 | CON.GI ---
Consult Consult Specialty:: GI: For Dr. Alston who resumes care 06/14 Referred by:: Hospitalist Reason for Consultation:: Abnormal liver chemistreis - History of Present Illness Chief Complaint: Diminished appetite History of Present Illness: 72M admitted through ER from [place] for evaluation of diminished appetite. History obtained predominantly from his distant relative who is also his health care proxy. She was present bedside. She felt he was not eating well and asked that they transefer him to [facility]. She explains that he is followed by Dr. Alston and that EGD/Colonoscopy had been discussed however they were deferred by the patient. Asked to evaluate elevated liver chemistries consisting of predominantly elevated alkaline phosphatase and bilirubin of 1.2/ He denies abdominal pain. There has been no rectal bleeding / melena. It is unclear if there has been any recent antibiotic use at the halfway. CT scan 03/18/18 was a limited study but failed to reveal any acute pathology. 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 Cardio/Vascular: Yes: HTN, Hyperlipdemia Hepatobiliary: Yes: Other (Hepatitis but unsure which type) Renal/: Yes: Renal Inusuff Infectious Disease: Yes: C-Diff Psych: Yes: Depression Musculoskeletal: Yes: Other (Sacral Decubitus) Endocrine: Yes: Diabetes Mellitus (IDDMI) - Past Surgical History Past Surgical History: Yes: Appendectomy (young child ) - Alcohol/Substance Use Hx Alcohol Use: No History of Substance Use: reports: None - Smoking History Smoking history: Never smoked Have you smoked in the past 12 months: No - Social History Usual Living Arrangement: Senior Living ADL: Support Services 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 Place of : [facility] History of Recent Travel: No Home Medications - Allergies Allergies/Adverse Reactions: Allergies Allergy/AdvReac Type Severity Reaction Status Date / Time levofloxacin Allergy Verified 06/12/18 17:35 Penicillins Allergy Verified 06/12/18 17:35 - Home Medications Home Medications: Ambulatory Orders Acetaminophen [Tylenol -] 1,000 mg PO Q8H 06/12/18 Ascorbic Acid [Vitamin C -] 500 mg PO BID 06/12/18 Ferrous Sulfate 325 mg PO DAILY 06/12/18 Glycerin Suppository Adult - 1 each RC DAILY PRN 06/12/18 Insulin Detemir [Levemir Flextouch] 5 unit SQ HS 06/12/18 Metoprolol Tartrate [Lopressor -] 25 mg PO DAILY 06/12/18 Multivitamin [Multiple Vitamins] 1 each PO DAILY 06/12/18 Pantoprazole Sodium [Protonix] 40 mg PO DAILY 06/12/18 Polyethylene Glycol 3350 [Glycolax] 17 gm PO DAILY 06/12/18 Sennosides [Senna Laxative] 17.2 mg PO HS 06/12/18 Silver Sulfadiazine 1% Top Cr [Silvadene -] 1 applic TP BID 06/12/18 Zinc Oxide 20% Topical Oint 1 applic TP BID 06/12/18 Family Disease History - Family Disease History Other Family History: Non-contribuatory Review of Systems - Review of Systems Constitutional: denies: Chills Cardiovascular: denies: Chest Pain Respiratory: denies: SOB Gastrointestinal: denies: Abdominal Pain, Melena, Nausea, Vomiting Physical Exam-GI Vital Signs: Vital Signs Temperature 97.7 F 06/13/18 09:35 Pulse Rate 99 H 06/13/18 09:02 Respiratory Rate 24 H 06/13/18 09:02 Blood Pressure 127/65 06/13/18 09:02 O2 Sat by Pulse Oximetry (%) 98 06/12/18 21:34 Constitutional: No: Calm Eyes: No: Sclera Icterus Cardiovascular: Yes: Regular Rate and Rhythm Respiratory: Yes: Diminished (at bases, poor insp. effort) Gastrointestinal Inspection: No: Distention, Scars ...Auscultate: Yes: Normoactive Bowel Sounds ...Palpate: No: Hepatomegaly, Splenomegaly, Tenderness ...Percussion: No: Tympanitic ...Rectal Exam: Yes: Other (No external lesions, no masses, guaiac negative soft , light brown stool) Edema: No (No LE edema) Neurological: Yes: Alert Labs: CBC, BMP 06/13/18 09:20 06/13/18 05:45 INR, PTT INR 1.13 (0.83-1.09) H 06/12/18 17:22 Imaging - Results Cat Scan: Report Reviewed Problem List - Problems (1) Abnormal liver enzymes Assessment/Plan: Predominantly cholestatic pattern w/ elevated ALP: For Abd US today Ordered MRCP Avoid hepatotoxic agents Clears liquids until biliary tract evaluated Code(s): R74.8 - ABNORMAL LEVELS OF OTHER SERUM ENZYMES (2) Anemia Assessment/Plan: Normocytic anemia with thrombocytopenia Consider heme evaluation Mr. Monteiro's relative explains that endoscopic evaluation had been discussed with Dr. Alston previously. I do not know the details of this. This can be revisited Code(s): D64.9 - ANEMIA, UNSPECIFIED
[2018-06-13] MEDS: ZINC OXIDE 20% TOPICAL OINTMENT 30 GM TUBE TP SCH (16:30)
[2018-06-13] MEDS: SILVER SULFADIAZINE 1% TOP CREAM 400 GM JAR TP SCH (16:30)
--- NOTE | 2018-06-13 17:07 | EKG ---
Test Reason : Blood Pressure : / mmHG Vent. Rate : 090 BPM Atrial Rate : 090 BPM P-R Int : 144 ms QRS Dur : 102 ms QT Int : 374 ms P-R-T Axes : -24 -67 106 degrees QTc Int : 457 ms SINUS RHYTHM WITH FREQUENT PREMATURE VENTRICULAR COMPLEXES LEFT AXIS DEVIATION ANTEROSEPTAL INFARCT (CITED ON OR BEFORE 18-MAR-2018) ABNORMAL ECG WHEN COMPARED WITH ECG OF 18-MAR-2018 12:48, PREMATURE VENTRICULAR COMPLEXES ARE NOW PRESENT Confirmed by MD Grant, Vern ([id number]) on 06/13/2018 5:07:02 PM Referred By: Confirmed By:Vern Burns MD
[2018-06-13] MEDS ORDERED: PT OWN MED DRAWER 7, Y5N ONE ×2 (18:09→19:10)
[2018-06-13] MEDS: ASCORBIC ACID 500 MG TABLET (FP) PO SCH (21:28)
[2018-06-14] MEDS: SILVER SULFADIAZINE 1% TOP CREAM 400 GM JAR TP SCH ×3 (00:36→22:34)
[2018-06-14] MEDS: ZINC OXIDE 20% TOPICAL OINTMENT 30 GM TUBE TP SCH ×3 (00:36→22:34)
[2018-06-14] MEDS: MEROPENEM 1 GM in DEXTROSE 5%-WATER 100 ML IVPB SCH ×3 (01:47→17:35)
[2018-06-14] MEDS: SODIUM CHLORIDE 1,000 ML IV SCH (01:49)
[2018-06-14] MEDS: INSULIN SLIDING SCALE (NOVOLOG) 1 VIAL SQ SCH ×4 (06:02→22:37)
[2018-06-14] MEDS ORDERED: METOPROLOL TARTRATE 25 MG TABLET (FP) PO SCH (10:00)
[2018-06-14] MEDS ORDERED: FERROUS SO4 325 MG TABLET (FP) PO SCH (10:00)
[2018-06-14] MEDS: MULTIVITAMINS (DAILY MVI) TABLET (FP) PO SCH (10:26)
[2018-06-14] MEDS: ASCORBIC ACID 500 MG TABLET (FP) PO SCH ×2 (10:26→22:34)
[2018-06-14] MEDS: HEPARIN NA (PORCINE) 5,000 UNITS/ML 1ML VIAL SQ SCH ×2 (10:27→22:34)
[2018-06-14] MEDS: PANTOPRAZOLE 40 MG TABLET (FP) PO SCH (10:27)
[2018-06-14] MEDS: METOPROLOL TARTRATE 25 MG TABLET (FP) PO SCH (10:27)
[2018-06-14] MEDS ORDERED: PT OWN MED DRAWER 7, Y5N ONE ×2 (10:40→17:31)
[2018-06-14] MEDS: POLYETHYLENE GLYCOL 3350 255 GM BTL PO SCH (10:43)
--- NOTE | 2018-06-14 12:23 | PN ---
Progress Note, Physician History of Present Illness: patient still looks very pale no distress lead teacher present all cx report awaited - Current Medication List Current Medications: Active Medications Ascorbic Acid (Vitamin C -) 500 mg PO BID [facility] Last Admin: 06/14/18 10:26 Dose: 500 mg Ferrous Sulfate (Feosol -) 325 mg PO DAILY [facility] Last Admin: 06/14/18 10:26 Dose: 325 mg Heparin Sodium (Porcine) (Heparin -) 5,000 unit SQ BID [facility] Last Admin: 06/14/18 10:27 Dose: 5,000 unit Sodium Chloride (Normal Saline -) 1,000 mls @ 150 mls/hr IV ASDIR [facility] Last Admin: 06/14/18 01:49 Dose: 150 mls/hr Meropenem 1 gm/ Dextrose 100 mls @ 200 mls/hr IVPB Q8H-IV [facility] Last Admin: 06/14/18 01:47 Dose: 200 mls/hr Insulin Aspart (Novolog Vial Sliding Scale -) 1 vial SQ ACHS [facility]; Protocol Last Admin: 06/14/18 06:02 Dose: Not Given Metoprolol Tartrate (Lopressor -) 25 mg PO DAILY [facility] Last Admin: 06/14/18 10:27 Dose: 25 mg Morphine Sulfate (Morphine Sulfate) 0.5 mg IVPUSH Q4H PRN PRN Reason: PAIN LEVEL 6-10 Multi-Ingredient Ointment (Zinc Oxide) 1 applic TP BID [facility] Last Admin: 06/14/18 10:42 Dose: 1 applic Multivitamins/Minerals/Vitamin C (Tab-A-Vit -) 1 tab PO DAILY [facility] Last Admin: 06/14/18 10:26 Dose: 1 tab Pantoprazole Sodium (Protonix -) 40 mg PO DAILY [facility] Last Admin: 06/14/18 10:27 Dose: 40 mg Polyethylene Glycol (Miralax (For Bowel Prep) -) 17 gm PO DAILY [facility] Last Admin: 06/14/18 10:43 Dose: 17 gm Silver Sulfadiazine (Silvadene -) 1 applic TP BID [facility] Last Admin: 06/14/18 10:42 Dose: 1 applic - Objective Vital Signs: Vital Signs Temperature 97.7 F 06/14/18 10:00 Pulse Rate 91 H 06/14/18 10:00 Respiratory Rate 19 06/14/18 10:00 Blood Pressure 155/62 06/14/18 10:00 O2 Sat by Pulse Oximetry (%) 95 06/13/18 21:00 Constitutional: Yes: No Distress, Calm Cardiovascular: Yes: Regular Rate and Rhythm Respiratory: Yes: Regular, CTA Bilaterally Gastrointestinal: Yes: Normal Bowel Sounds, Soft Musculoskeletal: Yes: WNL Extremities: Yes: WNL Wound/Incision: Yes: Other (sacrral decubitus) Neurological: Yes: Alert Psychiatric: Yes: Alert Labs: CBC, BMP 06/13/18 09:20 06/13/18 05:45 INR, PTT INR 1.13 (0.83-1.09) H 06/12/18 17:22 Assessment/Plan patient with multiple medical problems coming in with sepsis uti and bacteremia with elevated liver enzymes and fever nimisha gm negative bacteremia wound infection dm sepsis uti awaiting for cx reports plan continue current mgmt hydration nutrition rest as per the team await for imaging studies
--- NOTE | 2018-06-14 13:40 | PN ---
Progress Note, Physician Chief Complaint: patient seen he doesnt not want me to touch his abdomen his eyes are closed labs ordered - Current Medication List Current Medications: Active Medications Ascorbic Acid (Vitamin C -) 500 mg PO BID [facility] Last Admin: 06/14/18 10:26 Dose: 500 mg Ferrous Sulfate (Feosol -) 325 mg PO DAILY [facility] Last Admin: 06/14/18 10:26 Dose: 325 mg Heparin Sodium (Porcine) (Heparin -) 5,000 unit SQ BID [facility] Last Admin: 06/14/18 10:27 Dose: 5,000 unit Sodium Chloride (Normal Saline -) 1,000 mls @ 150 mls/hr IV ASDIR [facility] Last Admin: 06/14/18 01:49 Dose: 150 mls/hr Meropenem 1 gm/ Dextrose 100 mls @ 200 mls/hr IVPB Q8H-IV [facility] Last Admin: 06/14/18 01:47 Dose: 200 mls/hr Insulin Aspart (Novolog Vial Sliding Scale -) 1 vial SQ ACHS [facility]; Protocol Last Admin: 06/14/18 06:02 Dose: Not Given Metoprolol Tartrate (Lopressor -) 25 mg PO DAILY [facility] Last Admin: 06/14/18 10:27 Dose: 25 mg Morphine Sulfate (Morphine Sulfate) 0.5 mg IVPUSH Q4H PRN PRN Reason: PAIN LEVEL 6-10 Multi-Ingredient Ointment (Zinc Oxide) 1 applic TP BID [facility] Last Admin: 06/14/18 10:42 Dose: 1 applic Multivitamins/Minerals/Vitamin C (Tab-A-Vit -) 1 tab PO DAILY [facility] Last Admin: 06/14/18 10:26 Dose: 1 tab Pantoprazole Sodium (Protonix -) 40 mg PO DAILY [facility] Last Admin: 06/14/18 10:27 Dose: 40 mg Polyethylene Glycol (Miralax (For Bowel Prep) -) 17 gm PO DAILY [facility] Last Admin: 06/14/18 10:43 Dose: 17 gm Silver Sulfadiazine (Silvadene -) 1 applic TP BID [facility] Last Admin: 06/14/18 10:42 Dose: 1 applic - Objective Vital Signs: Vital Signs Temperature 97.7 F 06/14/18 10:00 Pulse Rate 91 H 06/14/18 10:00 Respiratory Rate 19 06/14/18 10:00 Blood Pressure 155/62 06/14/18 10:00 O2 Sat by Pulse Oximetry (%) 95 06/13/18 21:00 Constitutional: Yes: Calm, Thin Cardiovascular: Yes: Regular Rate and Rhythm, S1, S2 Respiratory: Yes: CTA Bilaterally, Diminished (at bases) Gastrointestinal: Yes: Normal Bowel Sounds, Soft Edema: No Labs: CBC, BMP 06/13/18 09:20 06/13/18 05:45 INR, PTT INR 1.13 (0.83-1.09) H 06/12/18 17:22 Problem List - Problems (1) Abnormal liver enzymes Assessment/Plan: abdominal MRI report pending gi consult noted repeat labs Code(s): R74.8 - ABNORMAL LEVELS OF OTHER SERUM ENZYMES (2) Anemia Assessment/Plan: heme consult iron panel po iron stol ocult Code(s): D64.9 - ANEMIA, UNSPECIFIED (3) Bacteremia Assessment/Plan: Microbiology 06/12/18 17:22 Blood - Peripheral Venous Blood Culture - Preliminary Non Lactose Fermenting Gnb 06/12/18 17:10 Blood - Peripheral Venous Blood Culture - Preliminary Non Lactose Fermenting Gnb 06/12/18 09:20 Urine - Urine - Catheterized Urine Culture - Preliminary Gram Negative Olaf meropenem Code(s): R78.81 - BACTEREMIA (4) Sacral decubitus ulcer Assessment/Plan: wound care consult silvadene dvtppx turn and position Code(s): L89.159 - PRESSURE ULCER OF SACRAL REGION, UNSPECIFIED STAGE
[2018-06-14 14:12] LABS: HEP.C VIRUS AB 0.1 s/co ratio (0.0-0.9)
[2018-06-14] MEDS ORDERED: ALBUTEROL SO4 2.5/IPRATROPIUM 0.5 INH SOL 3 ML VIAL.NEB. NEB ONE ×2 (17:49→18:30)
--- NOTE | 2018-06-14 18:01 | HOSP ---
Subjective - Review of Symptoms General: Yes: Fatigue, Malaise Pulmonary: Yes: Dyspnea Gastrointestinal: Yes: Abdominal Pain Neurological: Yes: Weakness, Confusion Physical Examination Vital Signs: Vital Signs Temperature 98.5 F 06/14/18 14:22 Pulse Rate 75 06/14/18 14:22 Respiratory Rate 18 06/14/18 14:22 Blood Pressure 120/62 06/14/18 14:22 O2 Sat by Pulse Oximetry (%) 95 06/13/18 21:00 Constitutional: Yes: Cachectic Eyes: Yes: Other Cardiovascular: Yes: Regular Rate and Rhythm Respiratory: Yes: Accessory Muscle Use, Diminished, SOB on Exertion Gastrointestinal: Yes: Soft, Ascites Labs: CBC, BMP 06/13/18 09:20 06/13/18 05:45 Hospitalist Encounter Assessment: Patient is a 72 year old patient with a past medical history of Parkinsons disease, CVA (2012; R sided residual weakness), HTN, HLD, DM, osteomyelitis, anemia, COPD and Atherosclerotic heart disease. Patient admitted for AMS, loss of appetite and infected sacral wound. He was found to have bacteremia. called by primary RN to report that patient is increasingly more lethargic with labored breathing. Patient has + blood cultures, repeat blood cultures pending. he is currently on meropenem. his WBC at 11, breathing between 25-30 breaths per minute. exam: lungs, congested noted anteriorly bilaterally response to tactile stimuli but becomes agitated when moved, incoherent lethargic since admission with episodes of agitation. Patient here with sepsis, and he appears to have tachypnea secondary to bacteremia. will order stat cbc, cmp, mag stat rectal temp bgms x 1 lasix 20mg x 1 oxygen at 2 liters for labored breathing stat duonebs chest xray stat stopped ivf which were running at NS @ 200cc/hr 2/2 to congestion.
[2018-06-14 18:24] LABS: BASO % 0.1 % (0-2.0); EOS % 0.9 % (0-4.5); HEMATOCRIT 23.7 % (35.4-49); HEMOGLOBIN 7.6 GM/dL (11.7-16.9); LYMPH % 11.9 % (8-40); MCH 25.9 pg (25.7-33.7); MCHC 31.9 g/dl (32.0-35.9); MEAN PLT VOLUME 7.9 fl (7.5-11.1); MONO % 7.6 % (3.8-10.2); NEUT % 79.5 % (42.8-82.8); PLATELET COUNT 97 K/MM3 (134-434); RBC 2.92 M/mm3 (4.00-5.60); RDW 20.3 % (11.9-15.9); WHITE BLOOD COUNT 9.5 K/mm3 (4.0-10.0)
[2018-06-14] MEDS ORDERED: FUROSEMIDE 40 MG/4 ML INJECTABLE VIAL IVPUSH ONE (18:24)
[2018-06-14 19:08] LABS: ALBUMIN 1.6 g/dl (3.4-5.0); ALK PHOS 595 U/L (45-117); ANION GAP 11 MMOL/L (8-16); BLOOD UREA NITROGEN 62 mg/dL (7-18); CALCIUM 7.7 mg/dL (8.5-10.1); CHLORIDE 110 mmol/L (98-107); CO2 20 mmol/L (21-32); GLUCOSE,RANDOM 137 mg/dL (74-106); POTASSIUM 4.1 mmol/L (3.5-5.1); SGOT/AST 134 U/L (15-37); SGPT/ALT 33 U/L (13-61); SODIUM 141 mmol/L (136-145); TOT PROT 5.4 g/dl (6.4-8.2)
--- NOTE | 2018-06-14 20:53 | CONSULT ---
Consult - text type - Consultation Consultation Note: Patient seen and examined 72M admitted through ER from [place] for evaluation of diminished appetite. History obtained predominantly from his distant relative who is also his health care proxy. She was present bedside. She felt he was not eating well and asked that they transefer him to [facility]. Noted to have elevated liver chemistries consisting of predominantly elevated alkaline phosphatase and bilirubin of 1.2 / He denies abdominal pain. There has been no rectal bleeding / melena. 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 Cardio/Vascular: Yes: HTN, Hyperlipdemia Hepatobiliary: Yes: Other (Hepatitis but unsure which type) Renal/: Yes: Renal Inusuff Infectious Disease: Yes: C-Diff Psych: Yes: Depression Musculoskeletal: Yes: Other (Sacral Decubitus) Endocrine: Yes: Diabetes Mellitus (IDDMI) - Past Surgical History Past Surgical History: Yes: Appendectomy (young child - Smoking History Smoking history: Never smoked - Allergies Allergies/Adverse Reactions: Allergies Allergy/AdvReac Type Severity Reaction Status Date / Time levofloxacin Allergy Verified 06/12/18 17:35 Penicillins Allergy Verified 06/12/18 17:35 - Home Medications Home Medications: Ambulatory Orders Acetaminophen [Tylenol -] 1,000 mg PO Q8H 06/12/18 Ascorbic Acid [Vitamin C -] 500 mg PO BID 06/12/18 Ferrous Sulfate 325 mg PO DAILY 06/12/18 Glycerin Suppository Adult - 1 each RC DAILY PRN 06/12/18 Insulin Detemir [Levemir Flextouch] 5 unit SQ HS 06/12/18 Metoprolol Tartrate [Lopressor -] 25 mg PO DAILY 06/12/18 Multivitamin [Multiple Vitamins] 1 each PO DAILY 06/12/18 Pantoprazole Sodium [Protonix] 40 mg PO DAILY 06/12/18 Polyethylene Glycol 3350 [Glycolax] 17 gm PO DAILY 06/12/18 Sennosides [Senna Laxative] 17.2 mg PO HS 06/12/18 Silver Sulfadiazine 1% Top Cr [Silvadene -] 1 applic TP BID 06/12/18 Zinc Oxide 20% Topical Oint 1 applic TP BID 06/12/18 Family Disease History - Family Disease History Other Family History: Non-contribuatory Physical Exam-GI Vital Signs: Vital Signs Temperature 97.7 F 06/13/18 09:35 Pulse Rate 99 H 06/13/18 09:02 Respiratory Rate 24 H 06/13/18 09:02 Blood Pressure 127/65 06/13/18 09:02 O2 Sat by Pulse Oximetry (%) 98 06/12/18 21:34 Cardiovascular: Yes: Regular Rate and Rhythm Respiratory: Yes: Diminished (at bases, poor insp. effort) Gastrointestinal Inspection: No: Distention, Scars ...Auscultate: Yes: Normoactive Bowel Sounds ...Palpate: No: Hepatomegaly, Splenomegaly, Tenderness ...Percussion: No: Tympanitic - Results Cat Scan: Report Reviewed A/P 72 y/o patient resident of facility, with parkinsons disease, HTN, HLD, COPD, type 1 diabetes, osteomyelitis, heart disease, GERD, anemia, and depression, severe normocytic anemia, admitted with sacral decubitus, G- bacteremia, anemia Chronically debilitated, bed-bound, pressure ulceration Admitted in 03/2018 for proteus infection and anemia aswell PAtient is delirious. Unable to provide histoy. Health care proxy is by his bedside. Anemia--Consistent with anemia of chronic disease. Does not accept transfusions from a pentecostalism conviction - albeit does not identify as a Jehovah Witness. Discussed with health care proxy in detail who is refusing blood transfusion despite fatal consequences of severe abnemia. discussed that sever anemia could cause cardiovascular/cerebrovascular complicatons/. discussed pros/cons of procrit including HTN/blood clots/stroke/heart-attack. She understands these complications . Will check iron studies/folate/B12 Change PO to IV iron 100mg/d for 5 days Dose procrit 20,000 Units SC daily for 5 days Dose B12/ folic acid Abnormal LFTs -- follow up MRI results will follow
[2018-06-15] MEDS: MEROPENEM 1 GM in DEXTROSE 5%-WATER 100 ML IVPB SCH ×3 (02:14→18:27)
[2018-06-15] MEDS: INSULIN SLIDING SCALE (NOVOLOG) 1 VIAL SQ SCH ×4 (06:06→22:21)
[2018-06-15 07:57] LABS: BASO % 0.2 % (0-2.0); EOS % 1.4 % (0-4.5); HEMOGLOBIN 7.9 GM/dL (11.7-16.9); LYMPH % 14.8 % (8-40); MCH 25.3 pg (25.7-33.7); MCHC 31.7 g/dl (32.0-35.9); MEAN CELL VOLUME 79.7 fl (80-96); MEAN PLT VOLUME 7.5 fl (7.5-11.1); MONO % 8.1 % (3.8-10.2); NEUT % 75.5 % (42.8-82.8); PLATELET COUNT 105 K/MM3 (134-434); RBC 3.13 M/mm3 (4.00-5.60); RDW 19.8 % (11.9-15.9); WHITE BLOOD COUNT 11.3 K/mm3 (4.0-10.0)
[2018-06-15 09:14] LABS: ALBUMIN 1.8 g/dl (3.4-5.0); ALK PHOS 636 U/L (45-117); ANION GAP 11 MMOL/L (8-16); BILIRUBIN,TOTAL 1.1 mg/dL (0.2-1); BLOOD UREA NITROGEN 66 mg/dL (7-18); CALCIUM 7.9 mg/dL (8.5-10.1); CHLORIDE 109 mmol/L (98-107); CO2 20 mmol/L (21-32); CREATININE 1.1 mg/dL (0.55-1.3); GLUCOSE,RANDOM 149 mg/dL (74-106); POTASSIUM 3.8 mmol/L (3.5-5.1); SGOT/AST 116 U/L (15-37); SGPT/ALT 31 U/L (13-61); SODIUM 140 mmol/L (136-145); TOT PROT 5.8 g/dl (6.4-8.2)
--- NOTE | 2018-06-15 10:07 | PN ---
Progress Note, Physician - Current Medication List Current Medications: Active Medications Ascorbic Acid (Vitamin C -) 500 mg PO BID [facility] Last Admin: 06/14/18 22:34 Dose: 500 mg Cyanocobalamin (Vitamin B12 Injection -) 1,000 mcg IM DAILY [facility] Stop: 06/19/18 10:01 Epoetin Darrell (Procrit -) 20,000 unit SQ DAILY [facility] Stop: 06/19/18 10:01 Folic Acid (Folic Acid -) 1 mg PO DAILY [facility] Heparin Sodium (Porcine) (Heparin -) 5,000 unit SQ BID [facility] Last Admin: 06/14/18 22:34 Dose: 5,000 unit Meropenem 1 gm/ Dextrose 100 mls @ 200 mls/hr IVPB Q8H-IV [facility] Last Admin: 06/15/18 02:14 Dose: 200 mls/hr Iron Sucrose 100 mg/ Sodium (Chloride) 100 mls @ 200 mls/hr IVPB ONCE ONE Stop: 06/15/18 11:32 Insulin Aspart (Novolog Vial Sliding Scale -) 1 vial SQ ACHS [facility]; Protocol Last Admin: 06/15/18 06:06 Dose: Not Given Metoprolol Tartrate (Lopressor -) 25 mg PO DAILY [facility] Last Admin: 06/14/18 10:27 Dose: 25 mg Morphine Sulfate (Morphine Sulfate) 0.5 mg IVPUSH Q4H PRN PRN Reason: PAIN LEVEL 6-10 Multi-Ingredient Ointment (Zinc Oxide) 1 applic TP BID [facility] Last Admin: 06/14/18 22:34 Dose: 1 applic Multivitamins/Minerals/Vitamin C (Tab-A-Vit -) 1 tab PO DAILY [facility] Last Admin: 06/14/18 10:26 Dose: 1 tab Pantoprazole Sodium (Protonix -) 40 mg PO DAILY [facility] Last Admin: 06/14/18 10:27 Dose: 40 mg Polyethylene Glycol (Miralax (For Bowel Prep) -) 17 gm PO DAILY [facility] Last Admin: 06/14/18 10:43 Dose: 17 gm Silver Sulfadiazine (Silvadene -) 1 applic TP BID [facility] Last Admin: 06/14/18 22:34 Dose: 1 applic - Objective Vital Signs: Vital Signs Temperature 98.4 F 06/15/18 06:00 Pulse Rate 71 06/15/18 06:00 Respiratory Rate 20 06/15/18 06:00 Blood Pressure 139/70 06/15/18 06:00 O2 Sat by Pulse Oximetry (%) 92 L 06/14/18 21:00 Cardiovascular: Yes: S1, S2 Respiratory: Yes: Regular, CTA Bilaterally Gastrointestinal: Yes: Normal Bowel Sounds, Soft Labs: CBC, BMP 06/15/18 06:50 06/15/18 06:50 INR, PTT INR 1.13 (0.83-1.09) H 06/12/18 17:22 Assessment/Plan Problems (1) Abnormal liver enzymes Assessment/Plan: abdominal MRI report noted--susp for mets gi consult noted repeat labs Code(s): R74.8 - ABNORMAL LEVELS OF OTHER SERUM ENZYMES (2) Anemia Assessment/Plan: heme consult iron panel po iron stool ocult Code(s): D64.9 - ANEMIA, UNSPECIFIED (3) Bacteremia Assessment/Plan: Microbiology 06/12/18 17:22 Decubiti Gram Stain - Final 06/12/18 17:22 Decubiti Wound Culture - Preliminary Staphylococcus Latex Coag Pos Group D Strep Or Entero Coccus Proteus Mirabilis 06/12/18 17:22 Blood - Peripheral Venous Blood Culture - Final Escherichia Coli Esbl Supplier Diversity Director 06/12/18 17:10 Blood - Peripheral Venous Blood Culture - Final Escherichia Coli Esbl Supplier Diversity Director 06/14/18 06:40 Blood - Peripheral Venous Blood Culture - Preliminary NO GROWTH OBTAINED AFTER 24 HOURS, INCUBATION TO CONTINUE FOR 4 DAYS. 06/14/18 07:00 Blood - Peripheral Venous Blood Culture - Preliminary NO GROWTH OBTAINED AFTER 24 HOURS, INCUBATION TO CONTINUE FOR 4 DAYS. 06/12/18 09:20 Urine - Urine - Catheterized Urine Culture - Final Proteus Mirabilis meropenem ID follow up Code(s): R78.81 - BACTEREMIA (4) Sacral decubitus ulcer Assessment/Plan: wound care consult silvadene dvtppx turn and position Code(s): L89.159 - PRESSURE ULCER OF SACRAL REGION, UNSPECIFIED STAGE (5) Metastatic Bone and Liver Disease Assessment/Plan: Oncology consult
[2018-06-15] MEDS ORDERED: PT OWN MED DRAWER 7, Y5N ONE ×2 (10:36→18:25)
[2018-06-15] MEDS: CYANOCOBALAMIN (VITAMIN B-12) 1000 MCG/1 ML VIAL IM SCH (10:48)
[2018-06-15] MEDS: MULTIVITAMINS (DAILY MVI) TABLET (FP) PO SCH (10:48)
[2018-06-15] MEDS: METOPROLOL TARTRATE 25 MG TABLET (FP) PO SCH (10:48)
[2018-06-15] MEDS: PANTOPRAZOLE 40 MG TABLET (FP) PO SCH (10:48)
[2018-06-15] MEDS: FOLIC ACID 1 MG TABLET (FP) PO SCH (10:48)
[2018-06-15] MEDS: ASCORBIC ACID 500 MG TABLET (FP) PO SCH ×3 (10:48→22:37)
[2018-06-15] MEDS: HEPARIN NA (PORCINE) 5,000 UNITS/ML 1ML VIAL SQ SCH ×2 (10:49→22:23)
[2018-06-15] MEDS ORDERED: IRON SUCROSE INJECTION 100 MG in SODIUM CHLORIDE 95 ML IVPB ONE (11:03)
[2018-06-15] MEDS: POLYETHYLENE GLYCOL 3350 255 GM BTL PO SCH (11:08)
[2018-06-15] MEDS: ZINC OXIDE 20% TOPICAL OINTMENT 30 GM TUBE TP SCH ×2 (11:08→22:23)
[2018-06-15] MEDS: SILVER SULFADIAZINE 1% TOP CREAM 400 GM JAR TP SCH (11:08)
[2018-06-15] MEDS: EPOETIN ALFA 20,000 UNIT/1 ML VIAL SQ SCH (12:38)
--- NOTE | 2018-06-15 14:55 | PN ---
Progress Note, Physician History of Present Illness: looks slightly better still very weak environmental services specialist with her - Current Medication List Current Medications: Active Medications Ascorbic Acid (Vitamin C -) 500 mg PO BID [facility] Last Admin: 06/15/18 10:48 Dose: 500 mg Cyanocobalamin (Vitamin B12 Injection -) 1,000 mcg IM DAILY [facility] Stop: 06/19/18 10:01 Last Admin: 06/15/18 10:48 Dose: 1,000 mcg Epoetin Darrell (Procrit -) 20,000 unit SQ DAILY [facility] Stop: 06/19/18 10:01 Last Admin: 06/15/18 12:38 Dose: 20,000 unit Folic Acid (Folic Acid -) 1 mg PO DAILY [facility] Last Admin: 06/15/18 10:48 Dose: 1 mg Heparin Sodium (Porcine) (Heparin -) 5,000 unit SQ BID [facility] Last Admin: 06/15/18 10:49 Dose: Not Given Meropenem 1 gm/ Dextrose 100 mls @ 200 mls/hr IVPB Q8H-IV [facility] Last Admin: 06/15/18 10:53 Dose: 200 mls/hr Insulin Aspart (Novolog Vial Sliding Scale -) 1 vial SQ ACHS [facility]; Protocol Last Admin: 06/15/18 11:54 Dose: 2 units Metoprolol Tartrate (Lopressor -) 25 mg PO DAILY [facility] Last Admin: 06/15/18 10:48 Dose: 25 mg Morphine Sulfate (Morphine Sulfate) 0.5 mg IVPUSH Q4H PRN PRN Reason: PAIN LEVEL 6-10 Multi-Ingredient Ointment (Zinc Oxide) 1 applic TP BID [facility] Last Admin: 06/15/18 11:08 Dose: 1 applic Multivitamins/Minerals/Vitamin C (Tab-A-Vit -) 1 tab PO DAILY [facility] Last Admin: 06/15/18 10:48 Dose: 1 tab Pantoprazole Sodium (Protonix -) 40 mg PO DAILY [facility] Last Admin: 06/15/18 10:48 Dose: 40 mg Polyethylene Glycol (Miralax (For Bowel Prep) -) 17 gm PO DAILY [facility] Last Admin: 06/15/18 11:08 Dose: Not Given Silver Sulfadiazine (Silvadene -) 1 applic TP BID [facility] Last Admin: 06/15/18 11:08 Dose: 1 applic - Objective Vital Signs: Vital Signs Temperature 98.4 F 06/15/18 06:00 Pulse Rate 71 06/15/18 06:00 Respiratory Rate 20 06/15/18 06:00 Blood Pressure 139/70 06/15/18 06:00 O2 Sat by Pulse Oximetry (%) 92 L 06/14/18 21:00 Constitutional: Yes: No Distress, Calm Cardiovascular: Yes: Regular Rate and Rhythm Respiratory: Yes: Regular, CTA Bilaterally Gastrointestinal: Yes: Normal Bowel Sounds, Soft Musculoskeletal: Yes: WNL Extremities: Yes: Other Wound/Incision: Yes: Other (sacral decubitus) Neurological: Yes: Alert Psychiatric: Yes: Alert Labs: CBC, BMP 06/15/18 06:50 06/15/18 06:50 INR, PTT INR 1.13 (0.83-1.09) H 06/12/18 17:22 Assessment/Plan patient with multiple medical problems coming in with sepsis uti and bacteremia with elevated liver enzymes and fever nimisha gm negative bacteremia wound infection dm sepsis uti awaiting for cx reports and sensitivities plan continue current mgmt hydration nutrition rest as per the team
--- NOTE | 2018-06-15 18:40 | PN ---
Progress Note (short form) - Note Progress Note: Patient seen and limited exam Basically through me out of the room. Spoke with health care proxy about results of MRI suggestive of metastatic disease. Both liver and spine involvement noted . She requests biopsy.
[2018-06-15] MEDS: SILVER SULFADIAZINE 1% TOP CREAM 50 GM JAR TP SCH (23:57)
[2018-06-16] MEDS: MEROPENEM 1 GM in DEXTROSE 5%-WATER 100 ML IVPB SCH ×3 (01:58→18:00)
[2018-06-16 06:11] LABS: SERUM IRON SATURATION 24 % (15-55); TOTAL IRON BINDING CAPACITY 137 ug/dL (250-450); UIBC 104 ug/dL (111-343)
[2018-06-16] MEDS: INSULIN SLIDING SCALE (NOVOLOG) 1 VIAL SQ SCH ×4 (06:12→22:07)
[2018-06-16] MEDS ORDERED: PT OWN MED DRAWER 7, Y5N ONE ×3 (09:45→17:24)
--- NOTE | 2018-06-16 09:54 | DS ---
Physical Examination Vital Signs: Vital Signs Temperature 98.2 F 06/16/18 05:19 Pulse Rate 76 06/16/18 05:19 Respiratory Rate 18 06/16/18 05:19 Blood Pressure 141/64 06/16/18 05:19 O2 Sat by Pulse Oximetry (%) 96 06/15/18 21:00 Labs: CBC, BMP 06/15/18 06:50 Discharge Summary Reason For Visit: PRESSURE INJURY OF SACRAL REGION, STAGE 4 Current Active Problems Abnormal liver enzymes (Acute) Sacral decubitus ulcer (Acute) Sacral decubitus ulcer, stage IV (Acute) Sepsis (Acute) - Instructions - Home Medications Comprehensive Discharge Medication List: Ambulatory Orders Acetaminophen [Tylenol -] 1,000 mg PO Q8H 06/12/18 Ascorbic Acid [Vitamin C -] 500 mg PO BID 06/12/18 Ferrous Sulfate 325 mg PO DAILY 06/12/18 Glycerin Suppository Adult - 1 each RC DAILY PRN 06/12/18 Insulin Detemir [Levemir Flextouch] 5 unit SQ HS 06/12/18 Metoprolol Tartrate [Lopressor -] 25 mg PO DAILY 06/12/18 Multivitamin [Multiple Vitamins] 1 each PO DAILY 06/12/18 Pantoprazole Sodium [Protonix] 40 mg PO DAILY 06/12/18 Polyethylene Glycol 3350 [Glycolax] 17 gm PO DAILY 06/12/18 Sennosides [Senna Laxative] 17.2 mg PO HS 06/12/18 Silver Sulfadiazine 1% Top Cr [Silvadene -] 1 applic TP BID 06/12/18 Zinc Oxide 20% Topical Oint 1 applic TP BID 06/12/18
[2018-06-16] MEDS: HEPARIN NA (PORCINE) 5,000 UNITS/ML 1ML VIAL SQ SCH ×2 (11:27→22:07)
[2018-06-16] MEDS: PANTOPRAZOLE 40 MG TABLET (FP) PO SCH (11:27)
[2018-06-16] MEDS: MULTIVITAMINS (DAILY MVI) TABLET (FP) PO SCH (11:27)
[2018-06-16] MEDS: CYANOCOBALAMIN (VITAMIN B-12) 1000 MCG/1 ML VIAL IM SCH (11:27)
[2018-06-16] MEDS: FOLIC ACID 1 MG TABLET (FP) PO SCH (11:27)
[2018-06-16] MEDS: ASCORBIC ACID 500 MG TABLET (FP) PO SCH ×2 (11:28→22:07)
[2018-06-16] MEDS: POLYETHYLENE GLYCOL 3350 255 GM BTL PO SCH (11:28)
[2018-06-16] MEDS: SILVER SULFADIAZINE 1% TOP CREAM 50 GM JAR TP SCH (11:29)
[2018-06-16] MEDS: ZINC OXIDE 20% TOPICAL OINTMENT 30 GM TUBE TP SCH ×2 (11:29→22:56)
[2018-06-16] MEDS: METOPROLOL TARTRATE 25 MG TABLET (FP) PO SCH (11:34)
--- NOTE | 2018-06-16 12:11 | PN ---
Progress Note (short form) - Note Progress Note: The patient is known to me from prior inpatient and outpatient encounters for anemia. Appears emaciated. No acute events overnight. No stigmata of significant bleeding. Still refusing EGD and colonoscopy. Observed to be not in distress or discomfort. Refused physical exam this am, however, the abdomen seemed to be benign on a limited exam. Observed to drink water through a straw w /o signs of dysphasia, or choking. MRI findings noted. The findings were discussed with the patient's healthcare proxy, who was at bedside. EGD, colonoscopy, liver biopsy were discussed with HCP Recommend: Soft diet with assistance. Evaluation by clinical administrator. Asses competence to make decisions. CEA, CA19-9, AFP, PSA CBC WBC 11.3 K/mm3 (4.0-10.0) H 06/15/18 06:50 RBC 3.13 M/mm3 (4.00-5.60) L 06/15/18 06:50 Hgb 7.9 GM/dL (11.7-16.9) L 06/15/18 06:50 Hct 25.0 % (35.4-49) L 06/15/18 06:50 MCV 79.7 fl (80-96) L 06/15/18 06:50 MCHC 31.7 g/dl (32.0-35.9) L 06/15/18 06:50 RDW 19.8 % (11.9-15.9) H 06/15/18 06:50 Plt Count 105 K/MM3 (134-434) L 06/15/18 06:50 MPV 7.5 fl (7.5-11.1) 06/15/18 06:50 CMP Sodium 140 mmol/L (136-145) 06/15/18 06:50 Potassium 3.8 mmol/L (3.5-5.1) 06/15/18 06:50 Chloride 109 mmol/L (98-107) H 06/15/18 06:50 Carbon Dioxide 20 mmol/L (21-32) L 06/15/18 06:50 Anion Gap 11 MMOL/L (8-16) 06/15/18 06:50 BUN 66 mg/dL (7-18) H 06/15/18 06:50 Creatinine 1.1 mg/dL (0.55-1.3) 06/15/18 06:50 Creat Clearance w eGFR > 60 (>60) 06/15/18 06:50 Calcium 7.9 mg/dL (8.5-10.1) L 06/15/18 06:50 Total Bilirubin 1.1 mg/dL (0.2-1) H 06/15/18 06:50 AST 116 U/L (15-37) H 06/15/18 06:50 ALT 31 U/L (13-61) 06/15/18 06:50 Alkaline Phosphatase 636 U/L (45-117) H 06/15/18 06:50 Total Protein 5.8 g/dl (6.4-8.2) L 06/15/18 06:50 Albumin 1.8 g/dl (3.4-5.0) L 06/15/18 06:50 Vital Signs - 24 hr 06/15/18 06/15/18 06/15/18 14:52 18:00 21:00 Temperature 98.4 F 97.6 F Pulse Rate 76 73 Respiratory 22 H 18 Rate Blood Pressure 145/78 135/73 O2 Sat by Pulse 96 Oximetry (%) 06/15/18 06/16/18 22:00 05:19 Temperature 98.3 F 98.2 F Pulse Rate 75 76 Respiratory 18 18 Rate Blood Pressure 128/65 141/64 O2 Sat by Pulse Oximetry (%)
--- NOTE | 2018-06-16 13:21 | PN ---
Progress Note, Physician History of Present Illness: patient very weak started on liquids hardly eating - Current Medication List Current Medications: Active Medications Ascorbic Acid (Vitamin C -) 500 mg PO BID [facility] Last Admin: 06/16/18 11:28 Dose: 500 mg Cyanocobalamin (Vitamin B12 Injection -) 1,000 mcg IM DAILY [facility] Stop: 06/19/18 10:01 Last Admin: 06/16/18 11:27 Dose: 1,000 mcg Epoetin Darrell (Procrit -) 20,000 unit SQ DAILY [facility] Stop: 06/19/18 10:01 Last Admin: 06/15/18 12:38 Dose: 20,000 unit Folic Acid (Folic Acid -) 1 mg PO DAILY [facility] Last Admin: 06/16/18 11:27 Dose: 1 mg Heparin Sodium (Porcine) (Heparin -) 5,000 unit SQ BID [facility] Last Admin: 06/16/18 11:27 Dose: 5,000 unit Meropenem 1 gm/ Dextrose 100 mls @ 200 mls/hr IVPB Q8H-IV [facility] Last Admin: 06/16/18 11:26 Dose: 200 mls/hr Insulin Aspart (Novolog Vial Sliding Scale -) 1 vial SQ ACHS [facility]; Protocol Last Admin: 06/16/18 06:12 Dose: Not Given Metoprolol Tartrate (Lopressor -) 25 mg PO DAILY [facility] Last Admin: 06/16/18 11:34 Dose: 25 mg Morphine Sulfate (Morphine Sulfate) 0.5 mg IVPUSH Q4H PRN PRN Reason: PAIN LEVEL 6-10 Multi-Ingredient Ointment (Zinc Oxide) 1 applic TP BID [facility] Last Admin: 06/16/18 11:29 Dose: 1 applic Multivitamins/Minerals/Vitamin C (Tab-A-Vit -) 1 tab PO DAILY [facility] Last Admin: 06/16/18 11:27 Dose: 1 tab Pantoprazole Sodium (Protonix -) 40 mg PO DAILY [facility] Last Admin: 06/16/18 11:27 Dose: 40 mg Polyethylene Glycol (Miralax (For Bowel Prep) -) 17 gm PO DAILY [facility] Last Admin: 06/16/18 11:28 Dose: Not Given Silver Sulfadiazine (Silvadene -) 1 applic TP BID [facility] Last Admin: 06/16/18 11:29 Dose: 1 applic - Objective Vital Signs: Vital Signs Temperature 98.2 F 06/16/18 05:19 Pulse Rate 76 06/16/18 05:19 Respiratory Rate 18 06/16/18 05:19 Blood Pressure 141/64 06/16/18 05:19 O2 Sat by Pulse Oximetry (%) 96 06/15/18 21:00 Cardiovascular: Yes: Regular Rate and Rhythm Respiratory: Yes: Regular, CTA Bilaterally Gastrointestinal: Yes: Normal Bowel Sounds, Soft Extremities: Yes: WNL Neurological: Yes: Alert, Other Labs: CBC, BMP 06/15/18 06:50 INR, PTT INR 1.13 (0.83-1.09) H 06/12/18 17:22 Assessment/Plan patient with multiple medical problems coming in with sepsis uti and bacteremia with elevated liver enzymes and fever nimisha gm negative bacteremia wound infection dm sepsis uti growing esbl plan continue current mgmt patient will need abx for 2 weeks hydration nutrition rest as per the team
[2018-06-16] MEDS ORDERED: INSULIN (NOVOLOG) ASPART 100 UNITS/ML 10ML VIAL ONE (14:35)
[2018-06-16] MEDS ORDERED: IRON SUCROSE INJECTION 200 MG in SODIUM CHLORIDE 90 ML IVPB ONE (15:01)
--- NOTE | 2018-06-16 15:05 | PN ---
Progress Note (short form) - Note Progress Note: Patient known from wound cliic for Grade IV sacral decubitus, poor nutrition, failure to thrive Admitted for deterioration of general condition patient recently going through investigation for metastatic tumors Microbiology 06/12/18 17:22 Decubiti Gram Stain - Final 06/12/18 17:22 Decubiti Wound Culture - Preliminary Presumptive Mrsa (Pbp2a Pos) Group D Strep Or Entero Coccus Proteus Mirabilis Selected Entries 06/16/18 05:19 Temperature 98.2 F Pulse Rate 76 Blood Pressure 141/64 Laboratory Tests 06/15/18 06/16/18 06:50 11:37 WBC 11.3 H Hgb 7.9 L Hct 25.0 L MCV 79.7 L MCH 25.3 L MCHC 31.7 L RDW 19.8 H Plt Count 105 L POC Glucometer 297 Sacral decubitus grade IV, clean , granulating well, size is smaller, on silvidine cream Plan : D/C Silvidine cream Apply Hydrogel daily Nutritional support Pressure relief Low pressure mattress grade III/IV decubitii Spoke with Health Proxy/friend : Explained abut the seriousness of patient condition, poor nutrition, patients inability to intake more nutrition.
--- NOTE | 2018-06-16 15:05 | PN ---
Progress Note, Physician Chief Complaint: EVENTS AND NOTES REVIEWED D/W FAMILY FOR 30 MINS PATIENT AWAKE MILD DISTRESS - Current Medication List Current Medications: Active Medications Ascorbic Acid (Vitamin C -) 500 mg PO BID [facility] Last Admin: 06/16/18 11:28 Dose: 500 mg Cyanocobalamin (Vitamin B12 Injection -) 1,000 mcg IM DAILY [facility] Stop: 06/19/18 10:01 Last Admin: 06/16/18 11:27 Dose: 1,000 mcg Epoetin Darrell (Procrit -) 20,000 unit SQ DAILY [facility] Stop: 06/19/18 10:01 Last Admin: 06/15/18 12:38 Dose: 20,000 unit Folic Acid (Folic Acid -) 1 mg PO DAILY [facility] Last Admin: 06/16/18 11:27 Dose: 1 mg Heparin Sodium (Porcine) (Heparin -) 5,000 unit SQ BID [facility] Last Admin: 06/16/18 11:27 Dose: 5,000 unit Meropenem 1 gm/ Dextrose 100 mls @ 200 mls/hr IVPB Q8H-IV [facility] Last Admin: 06/16/18 11:26 Dose: 200 mls/hr Iron Sucrose 200 mg/ Sodium (Chloride) 100 mls @ 100 mls/hr IVPB ONCE ONE Stop: 06/16/18 16:00 Insulin Aspart (Novolog Vial Sliding Scale -) 1 vial SQ ACHS [facility]; Protocol Last Admin: 06/16/18 14:37 Dose: 4 units Metoprolol Tartrate (Lopressor -) 25 mg PO DAILY [facility] Last Admin: 06/16/18 11:34 Dose: 25 mg Morphine Sulfate (Morphine Sulfate) 0.5 mg IVPUSH Q4H PRN PRN Reason: PAIN LEVEL 6-10 Multi-Ingredient Ointment (Zinc Oxide) 1 applic TP BID [facility] Last Admin: 06/16/18 11:29 Dose: 1 applic Multivitamins/Minerals/Vitamin C (Tab-A-Vit -) 1 tab PO DAILY [facility] Last Admin: 06/16/18 11:27 Dose: 1 tab Pantoprazole Sodium (Protonix -) 40 mg PO DAILY [facility] Last Admin: 06/16/18 11:27 Dose: 40 mg Polyethylene Glycol (Miralax (For Bowel Prep) -) 17 gm PO DAILY [facility] Last Admin: 06/16/18 11:28 Dose: Not Given Silver Sulfadiazine (Silvadene -) 1 applic TP BID [facility] Last Admin: 06/16/18 11:29 Dose: 1 applic - Objective Vital Signs: Vital Signs Temperature 98.2 F 06/16/18 05:19 Pulse Rate 76 06/16/18 05:19 Respiratory Rate 18 06/16/18 05:19 Blood Pressure 141/64 06/16/18 05:19 O2 Sat by Pulse Oximetry (%) 96 06/15/18 21:00 Constitutional: Yes: Mild Distress Eyes: Yes: WNL HENT: Yes: WNL Neck: Yes: WNL Cardiovascular: Yes: WNL Respiratory: Yes: On Nasal O2, Poor Air Entry Gastrointestinal: Yes: Tenderness Genitourinary: Yes: Incontinence Musculoskeletal: Yes: Muscle Weakness Extremities: Yes: Other Edema: No Integumentary: Yes: Pressure Ulcer (SACRAL ULCER STAGE 4) Wound/Incision: Yes: Dressing Dry and Intact, Excoriated, Unapproximated Neurological: Yes: Pre-Existing Deficit, Weakness Psychiatric: Yes: WNL Labs: CBC, BMP 06/15/18 06:50 INR, PTT INR 1.13 (0.83-1.09) H 06/12/18 17:22 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 (3) Abnormal liver enzymes Code(s): R74.8 - ABNORMAL LEVELS OF OTHER SERUM ENZYMES (4) Sacral decubitus ulcer, stage IV Code(s): L89.154 - PRESSURE ULCER OF SACRAL REGION, STAGE 4 (5) Sepsis Code(s): A41.9 - SEPSIS, UNSPECIFIED ORGANISM Qualifiers: Sepsis type: sepsis due to unspecified organism Qualified Code(s): A41.9 - Sepsis, unspecified organism (6) Anemia Code(s): D64.9 - ANEMIA, UNSPECIFIED (7) Bacteremia Code(s): R78.81 - BACTEREMIA (8) Fever Code(s): R50.9 - FEVER, UNSPECIFIED Qualifiers: Fever type: unspecified Qualified Code(s): R50.9 - Fever, unspecified Assessment/Plan ONCOLOGY WORKUP UNDERWAY FAMILY REFUSED LIVER BIOPSY PER BECAUSE HER IS NOT A CANDIDATE FOR ANY SURGERY OR CHEMOTHERPAY THE RISK AT THIS POINT OUTWEIGHS THE BENEFIT. CAN READDRESS THIS AFTER TREATED WITH IV ABX FOR SEPSIS AND WOUND CARE IMPROVES. PLASTIC SURGERY EVAL FOR SACRAL STAGE 4 ULCER COLLAGENAS DAILY CLEANSING DVT PROPHYLAXIS MONITOR LABS [facility] WORKUP
[2018-06-16] MEDS ORDERED: ALBUTEROL SO4 2.5/IPRATROPIUM 0.5 INH SOL 3 ML VIAL.NEB. NEB PRN (15:09)
[2018-06-16] MEDS ORDERED: ACETAMINOPHEN 325 MG TABLET (FP) PO PRN ×2 (15:11→15:13)
[2018-06-16] MEDS: EPOETIN ALFA 20,000 UNIT/1 ML VIAL SQ SCH (17:59)
[2018-06-17] MEDS: MEROPENEM 1 GM in DEXTROSE 5%-WATER 100 ML IVPB SCH ×3 (01:20→17:20)
[2018-06-17 06:11] LABS: CARCINOEMBRYONIC ANTIGEN 707.7 ng/mL (0.0-4.7)
[2018-06-17] MEDS: INSULIN SLIDING SCALE (NOVOLOG) 1 VIAL SQ SCH ×4 (06:30→21:46)
[2018-06-17 07:08] LABS: HEMATOCRIT 23.8 % (35.4-49); HEMOGLOBIN 7.7 GM/dL (11.7-16.9); MCH 25.9 pg (25.7-33.7); MCHC 32.5 g/dl (32.0-35.9); MEAN CELL VOLUME 79.6 fl (80-96); MEAN PLT VOLUME 8.1 fl (7.5-11.1); PLATELET COUNT 107 K/MM3 (134-434); RBC 2.99 M/mm3 (4.00-5.60); RDW 19.9 % (11.9-15.9); WHITE BLOOD COUNT 10.1 K/mm3 (4.0-10.0)
--- NOTE | 2018-06-17 08:15 | PN ---
Progress Note, Physician Chief Complaint: AWAKE ALERT X 1 DENIES CHEST PAIN NO SOB - Current Medication List Current Medications: Active Medications Acetaminophen (Tylenol -) 975 mg PO Q8H PRN PRN Reason: PAIN OR FEVER Albuterol/Ipratropium (Duoneb -) 1 amp NEB Q6H PRN PRN Reason: SHORTNESS OF BREATH Ascorbic Acid (Vitamin C -) 500 mg PO BID [facility] Last Admin: 06/16/18 22:07 Dose: 500 mg Cyanocobalamin (Vitamin B12 Injection -) 1,000 mcg IM DAILY [facility] Stop: 06/19/18 10:01 Last Admin: 06/16/18 11:27 Dose: 1,000 mcg Epoetin Darrell (Procrit -) 20,000 unit SQ DAILY [facility] Stop: 06/19/18 10:01 Last Admin: 06/16/18 17:59 Dose: 20,000 unit Folic Acid (Folic Acid -) 1 mg PO DAILY [facility] Last Admin: 06/16/18 11:27 Dose: 1 mg Heparin Sodium (Porcine) (Heparin -) 5,000 unit SQ BID [facility] Last Admin: 06/16/18 22:07 Dose: 5,000 unit Meropenem 1 gm/ Dextrose 100 mls @ 200 mls/hr IVPB Q8H-IV [facility] Last Admin: 06/17/18 01:20 Dose: 200 mls/hr Insulin Aspart (Novolog Vial Sliding Scale -) 1 vial SQ ACHS [facility]; Protocol Last Admin: 06/17/18 06:30 Dose: 2 units Metoprolol Tartrate (Lopressor -) 25 mg PO DAILY [facility] Last Admin: 06/16/18 11:34 Dose: 25 mg Morphine Sulfate (Morphine Sulfate) 0.5 mg IVPUSH Q4H PRN PRN Reason: PAIN LEVEL 6-10 Multi-Ingredient Ointment (Zinc Oxide) 1 applic TP BID [facility] Last Admin: 06/16/18 22:56 Dose: 1 applic Multivitamins/Minerals/Vitamin C (Tab-A-Vit -) 1 tab PO DAILY [facility] Last Admin: 06/16/18 11:27 Dose: 1 tab Pantoprazole Sodium (Protonix -) 40 mg PO DAILY [facility] Last Admin: 06/16/18 11:27 Dose: 40 mg Polyethylene Glycol (Miralax (For Bowel Prep) -) 17 gm PO DAILY [facility] Last Admin: 06/16/18 11:28 Dose: Not Given - Objective Vital Signs: Vital Signs Temperature 97.7 F 06/17/18 05:58 Pulse Rate 67 06/17/18 05:58 Respiratory Rate 20 06/17/18 05:58 Blood Pressure 131/65 06/17/18 05:58 O2 Sat by Pulse Oximetry (%) 96 06/16/18 21:00 Constitutional: Yes: Mild Distress Eyes: Yes: WNL HENT: Yes: WNL Neck: Yes: WNL Cardiovascular: Yes: WNL Respiratory: Yes: Diminished, On Nasal O2 Gastrointestinal: Yes: WNL Genitourinary: Yes: Incontinence Musculoskeletal: Yes: Muscle Weakness Extremities: Yes: Other Edema: No Peripheral Pulses WNL: Yes Integumentary: Yes: Pressure Ulcer (STAGE 4 SACRAL ULCER) Wound/Incision: Yes: Dressing Dry and Intact Neurological: Yes: Pre-Existing Deficit ...Motor Strength: LLE, RLE Psychiatric: Yes: Other Labs: CBC, BMP 06/17/18 06:00 INR, PTT INR 1.13 (0.83-1.09) H 06/12/18 17:22 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 (3) Abnormal liver enzymes Code(s): R74.8 - ABNORMAL LEVELS OF OTHER SERUM ENZYMES (4) Sacral decubitus ulcer, stage IV Code(s): L89.154 - PRESSURE ULCER OF SACRAL REGION, STAGE 4 (5) Sepsis Code(s): A41.9 - SEPSIS, UNSPECIFIED ORGANISM Qualifiers: Sepsis type: sepsis due to unspecified organism Qualified Code(s): A41.9 - Sepsis, unspecified organism (6) Anemia Code(s): D64.9 - ANEMIA, UNSPECIFIED (7) Bacteremia Code(s): R78.81 - BACTEREMIA (8) Fever Code(s): R50.9 - FEVER, UNSPECIFIED Qualifiers: Fever type: unspecified Qualified Code(s): R50.9 - Fever, unspecified Assessment/Plan ONCOLOGY WORKUP UNDERWAY FAMILY REFUSED LIVER BIOPSY PER BECAUSE HER IS NOT A CANDIDATE FOR ANY SURGERY OR CHEMOTHERPAY THE RISK AT THIS POINT OUTWEIGHS THE BENEFIT. CAN READDRESS THIS AFTER TREATED WITH IV ABX FOR SEPSIS AND WOUND CARE IMPROVES. PLASTIC SURGERY EVAL FOR SACRAL STAGE 4 ULCER COLLAGENAS DAILY CLEANSING DVT PROPHYLAXIS MONITOR LABS [facility] WORKUP
[2018-06-17 09:03] LABS: ALBUMIN 1.5 g/dl (3.4-5.0); ALK PHOS 521 U/L (45-117); ANION GAP 13 MMOL/L (8-16); BLOOD UREA NITROGEN 54 mg/dL (7-18); CALCIUM 8.1 mg/dL (8.5-10.1); CHLORIDE 109 mmol/L (98-107); CO2 20 mmol/L (21-32); CREATININE 0.9 mg/dL (0.55-1.3); GLUCOSE,RANDOM 187 mg/dL (74-106); POTASSIUM 3.4 mmol/L (3.5-5.1); SGOT/AST 83 U/L (15-37); SGPT/ALT 28 U/L (13-61); SODIUM 142 mmol/L (136-145); TOT PROT 5.2 g/dl (6.4-8.2)
[2018-06-17] MEDS: ASCORBIC ACID 500 MG TABLET (FP) PO SCH ×2 (11:04→21:46)
[2018-06-17] MEDS: FOLIC ACID 1 MG TABLET (FP) PO SCH (11:04)
[2018-06-17] MEDS: METOPROLOL TARTRATE 25 MG TABLET (FP) PO SCH (11:04)
[2018-06-17] MEDS: MULTIVITAMINS (DAILY MVI) TABLET (FP) PO SCH (11:04)
[2018-06-17] MEDS: HEPARIN NA (PORCINE) 5,000 UNITS/ML 1ML VIAL SQ SCH ×2 (11:05→21:46)
[2018-06-17] MEDS: CYANOCOBALAMIN (VITAMIN B-12) 1000 MCG/1 ML VIAL IM SCH (11:05)
[2018-06-17] MEDS: PANTOPRAZOLE 40 MG TABLET (FP) PO SCH (11:05)
[2018-06-17] MEDS: POLYETHYLENE GLYCOL 3350 255 GM BTL PO SCH (11:23)
[2018-06-17] MEDS: ZINC OXIDE 20% TOPICAL OINTMENT 30 GM TUBE TP SCH ×2 (11:23→21:47)
[2018-06-17] MEDS: EPOETIN ALFA 20,000 UNIT/1 ML VIAL SQ SCH (11:23)
[2018-06-17] MEDS ORDERED: INSULIN (NOVOLOG) ASPART 100 UNITS/ML 10ML VIAL ONE ×2 (11:55→19:07)
--- NOTE | 2018-06-17 14:41 | PN ---
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 - Current Medication List Current Medications: Active Medications Acetaminophen (Tylenol -) 975 mg PO Q8H PRN PRN Reason: PAIN OR FEVER Albuterol/Ipratropium (Duoneb -) 1 amp NEB Q6H PRN PRN Reason: SHORTNESS OF BREATH Ascorbic Acid (Vitamin C -) 500 mg PO BID [facility] Last Admin: 06/17/18 11:04 Dose: 500 mg Cyanocobalamin (Vitamin B12 Injection -) 1,000 mcg IM DAILY [facility] Stop: 06/19/18 10:01 Last Admin: 06/17/18 11:05 Dose: 1,000 mcg Epoetin Darrell (Procrit -) 20,000 unit SQ DAILY [facility] Stop: 06/19/18 10:01 Last Admin: 06/17/18 11:23 Dose: 20,000 unit Folic Acid (Folic Acid -) 1 mg PO DAILY [facility] Last Admin: 06/17/18 11:04 Dose: 1 mg Heparin Sodium (Porcine) (Heparin -) 5,000 unit SQ BID [facility] Last Admin: 06/17/18 11:05 Dose: 5,000 unit Meropenem 1 gm/ Dextrose 100 mls @ 200 mls/hr IVPB Q8H-IV [facility] Last Admin: 06/17/18 11:05 Dose: 200 mls/hr Insulin Aspart (Novolog Vial Sliding Scale -) 1 vial SQ ACHS [facility]; Protocol Last Admin: 06/17/18 12:11 Dose: 2 units Metoprolol Tartrate (Lopressor -) 25 mg PO DAILY [facility] Last Admin: 06/17/18 11:04 Dose: 25 mg Morphine Sulfate (Morphine Sulfate) 0.5 mg IVPUSH Q4H PRN PRN Reason: PAIN LEVEL 6-10 Multi-Ingredient Ointment (Zinc Oxide) 1 applic TP BID [facility] Last Admin: 06/17/18 11:23 Dose: 1 applic Multivitamins/Minerals/Vitamin C (Tab-A-Vit -) 1 tab PO DAILY [facility] Last Admin: 06/17/18 11:04 Dose: 1 tab Pantoprazole Sodium (Protonix -) 40 mg PO DAILY [facility] Last Admin: 06/17/18 11:05 Dose: 40 mg Polyethylene Glycol (Miralax (For Bowel Prep) -) 17 gm PO DAILY [facility] Last Admin: 06/17/18 11:23 Dose: Not Given - Objective Vital Signs: Vital Signs Temperature 98.2 F 06/17/18 14:25 Pulse Rate 81 06/17/18 14:25 Respiratory Rate 20 06/17/18 14:25 Blood Pressure 121/63 06/17/18 14:25 O2 Sat by Pulse Oximetry (%) 96 06/16/18 21:00 Constitutional: Yes: Calm, Other (bed bound) Cardiovascular: Yes: Regular Rate and Rhythm Respiratory: Yes: Regular, CTA Bilaterally Gastrointestinal: Yes: Normal Bowel Sounds, Soft Musculoskeletal: Yes: WNL Extremities: Yes: Other Wound/Incision: Yes: Other (sacral decubitus) Neurological: Yes: Alert, Other Psychiatric: Yes: Alert, Other Labs: CBC, BMP 06/17/18 06:00 06/17/18 06:00 INR, PTT INR 1.13 (0.83-1.09) H 06/12/18 17:22 Assessment/Plan patient with multiple medical problems coming in with sepsis uti and bacteremia with elevated liver enzymes and fever nimisha gm negative bacteremia wound infection dm sepsis uti growing esbl plan continue current mgmt patient will need abx for 2 weeks hydration nutrition rest as per the team
[2018-06-17] MEDS ORDERED: PT OWN MED DRAWER 7, Y5N ONE ×2 (15:27→16:50)
--- NOTE | 2018-06-17 17:52 | CON.PSY ---
Psychiatry Consult Chief Complaint: 72 year old Male from [facility]. History ofchronic medical problems and Dementia. Symptoms: reports: Impaired Concentration, Decreased Motivation, Memory Impairment, Anorexic Behavior - Previous Psychiatric Treatment Outpatient: None Inpatient: None - Previous Substance Abuse Treatment Outpatient: None Inpatient: None - Current Medications Current Medications: Active Medications Acetaminophen (Tylenol -) 975 mg PO Q8H PRN PRN Reason: PAIN OR FEVER Albuterol/Ipratropium (Duoneb -) 1 amp NEB Q6H PRN PRN Reason: SHORTNESS OF BREATH Ascorbic Acid (Vitamin C -) 500 mg PO BID [facility] Last Admin: 06/17/18 11:04 Dose: 500 mg Cyanocobalamin (Vitamin B12 Injection -) 1,000 mcg IM DAILY [facility] Stop: 06/19/18 10:01 Last Admin: 06/17/18 11:05 Dose: 1,000 mcg Epoetin Darrell (Procrit -) 20,000 unit SQ DAILY [facility] Stop: 06/19/18 10:01 Last Admin: 06/17/18 11:23 Dose: 20,000 unit Folic Acid (Folic Acid -) 1 mg PO DAILY [facility] Last Admin: 06/17/18 11:04 Dose: 1 mg Heparin Sodium (Porcine) (Heparin -) 5,000 unit SQ BID [facility] Last Admin: 06/17/18 11:05 Dose: 5,000 unit Meropenem 1 gm/ Dextrose 100 mls @ 200 mls/hr IVPB Q8H-IV [facility] Last Admin: 06/17/18 17:20 Dose: 200 mls/hr Insulin Aspart (Novolog Vial Sliding Scale -) 1 vial SQ ACHS [facility]; Protocol Last Admin: 06/17/18 17:20 Dose: Not Given Metoprolol Tartrate (Lopressor -) 25 mg PO DAILY [facility] Last Admin: 06/17/18 11:04 Dose: 25 mg Morphine Sulfate (Morphine Sulfate) 0.5 mg IVPUSH Q4H PRN PRN Reason: PAIN LEVEL 6-10 Multi-Ingredient Ointment (Zinc Oxide) 1 applic TP BID [facility] Last Admin: 06/17/18 11:23 Dose: 1 applic Multivitamins/Minerals/Vitamin C (Tab-A-Vit -) 1 tab PO DAILY [facility] Last Admin: 06/17/18 11:04 Dose: 1 tab Pantoprazole Sodium (Protonix -) 40 mg PO DAILY [facility] Last Admin: 06/17/18 11:05 Dose: 40 mg Polyethylene Glycol (Miralax (For Bowel Prep) -) 17 gm PO DAILY [facility] Last Admin: 06/17/18 11:23 Dose: Not Given - Allergies Allergies: Allergies Allergy/AdvReac Type Severity Reaction Status Date / Time levofloxacin Allergy Verified 06/12/18 17:35 Penicillins Allergy Verified 06/12/18 17:35 - Current Living Status Usual Living Arrangement: Usp - Current Mental Status Evaluation Appearance: Disheveled Attitude: Guarded - Affect Affect: Constrictive Appropriateness: Not Appropriate - Mood Mood: Other - Speech/Language Expressive: Delayed - Psychomotor Activity Psychomotor Activity: Slowed - Thought Process Thought Process: Loosening of Associations - Thought Content Hallucinations: Absent Delusions: Absent - Self Perception Self Perception: Depersonalization - Cognition Attention: Diminished Memory, Immediate Recall: Impaired Memory, Short Term: 1/3 Memory, Remote with Promptin/3 - Concentration Serial Sevens Intact: No Simple Calculations Intact: No - Abstraction Proverb Interpretation: [place] Judgement: Minimally Impaired - Insight Insight: Impaired - Impulse Control Impulse Control: Moderately Impaired - Suicidal Ideation Suicidal Ideation: No - Homicidal Ideation Homicidal Ideation: No Assessment/Plan 1) Patient looks obtunded and apthetic, might benefit from emeron 15mg po hs . 2) watch patient from excessive sedation.
--- NOTE | 2018-06-17 18:06 | PN ---
Progress Note (short form) - Note Progress Note: Psych::: 1) Patient lacks functional capacity to make informed decisions at this time.
[2018-06-17] MEDS: MIRTAZAPINE 15 MG TABLET (FP) PO SCH (21:46)
[2018-06-18] MEDS: MEROPENEM 1 GM in DEXTROSE 5%-WATER 100 ML IVPB SCH ×3 (01:47→18:39)
[2018-06-18] MEDS: INSULIN SLIDING SCALE (NOVOLOG) 1 VIAL SQ SCH ×4 (06:32→21:56)
[2018-06-18 07:15] LABS: HEMATOCRIT 23.3 % (35.4-49); HEMOGLOBIN 7.3 GM/dL (11.7-16.9); MCH 25.1 pg (25.7-33.7); MCHC 31.3 g/dl (32.0-35.9); MEAN PLT VOLUME 8.2 fl (7.5-11.1); PLATELET COUNT 116 K/MM3 (134-434); RBC 2.92 M/mm3 (4.00-5.60); RDW 19.5 % (11.9-15.9); WHITE BLOOD COUNT 12.4 K/mm3 (4.0-10.0)
[2018-06-18 07:54] LABS: INR 1.24 (0.83-1.09)
[2018-06-18 08:14] LABS: ANION GAP 9 MMOL/L (8-16); BLOOD UREA NITROGEN 54 mg/dL (7-18); CHLORIDE 108 mmol/L (98-107); CO2 23 mmol/L (21-32); CREATININE 0.9 mg/dL (0.55-1.3); GLUCOSE,RANDOM 189 mg/dL (74-106); POTASSIUM 3.4 mmol/L (3.5-5.1); SODIUM 140 mmol/L (136-145)
[2018-06-18] MEDS: ASCORBIC ACID 500 MG TABLET (FP) PO SCH ×2 (11:14→21:46)
[2018-06-18] MEDS: PANTOPRAZOLE 40 MG TABLET (FP) PO SCH (11:14)
[2018-06-18] MEDS: METOPROLOL TARTRATE 25 MG TABLET (FP) PO SCH (11:14)
[2018-06-18] MEDS: HEPARIN NA (PORCINE) 5,000 UNITS/ML 1ML VIAL SQ SCH ×2 (11:15→21:47)
[2018-06-18] MEDS: POLYETHYLENE GLYCOL 3350 255 GM BTL PO SCH (11:15)
[2018-06-18] MEDS: FOLIC ACID 1 MG TABLET (FP) PO SCH (11:15)
[2018-06-18] MEDS: CYANOCOBALAMIN (VITAMIN B-12) 1000 MCG/1 ML VIAL IM SCH (11:16)
[2018-06-18] MEDS: MULTIVITAMINS (DAILY MVI) TABLET (FP) PO SCH (11:16)
[2018-06-18] MEDS: ZINC OXIDE 20% TOPICAL OINTMENT 30 GM TUBE TP SCH ×2 (11:17→21:47)
[2018-06-18] MEDS: EPOETIN ALFA 20,000 UNIT/1 ML VIAL SQ SCH (11:22)
--- NOTE | 2018-06-18 12:37 | PN ---
Progress Note, Physician History of Present Illness: patient continues to be weak and frail no other issues stable all cx reports noted - Current Medication List Current Medications: Active Medications Acetaminophen (Tylenol -) 975 mg PO Q8H PRN PRN Reason: PAIN OR FEVER Albuterol/Ipratropium (Duoneb -) 1 amp NEB Q6H PRN PRN Reason: SHORTNESS OF BREATH Ascorbic Acid (Vitamin C -) 500 mg PO BID [facility] Last Admin: 06/18/18 11:14 Dose: 500 mg Cyanocobalamin (Vitamin B12 Injection -) 1,000 mcg IM DAILY [facility] Stop: 06/19/18 10:01 Last Admin: 06/18/18 11:16 Dose: 1,000 mcg Epoetin Darrell (Procrit -) 20,000 unit SQ DAILY [facility] Stop: 06/19/18 10:01 Last Admin: 06/18/18 11:22 Dose: 20,000 unit Folic Acid (Folic Acid -) 1 mg PO DAILY [facility] Last Admin: 06/18/18 11:15 Dose: 1 mg Heparin Sodium (Porcine) (Heparin -) 5,000 unit SQ BID [facility] Last Admin: 06/18/18 11:15 Dose: 5,000 unit Meropenem 1 gm/ Dextrose 100 mls @ 200 mls/hr IVPB Q8H-IV [facility] Last Admin: 06/18/18 11:14 Dose: 200 mls/hr Insulin Aspart (Novolog Vial Sliding Scale -) 1 vial SQ ACHS [facility]; Protocol Last Admin: 06/18/18 11:25 Dose: Not Given Metoprolol Tartrate (Lopressor -) 25 mg PO DAILY [facility] Last Admin: 06/18/18 11:14 Dose: 25 mg Mirtazapine (Remeron -) 15 mg PO HS [facility] Last Admin: 06/17/18 21:46 Dose: 15 mg Multi-Ingredient Ointment (Zinc Oxide) 1 applic TP BID [facility] Last Admin: 06/18/18 11:17 Dose: 1 applic Multivitamins/Minerals/Vitamin C (Tab-A-Vit -) 1 tab PO DAILY [facility] Last Admin: 06/18/18 11:16 Dose: 1 tab Pantoprazole Sodium (Protonix -) 40 mg PO DAILY [facility] Last Admin: 06/18/18 11:14 Dose: 40 mg Polyethylene Glycol (Miralax (For Bowel Prep) -) 17 gm PO DAILY [facility] Last Admin: 06/18/18 11:15 Dose: 17 gm - Objective Vital Signs: Vital Signs Temperature 98.1 F 06/18/18 05:58 Pulse Rate 92 H 06/18/18 05:58 Respiratory Rate 20 06/18/18 05:58 Blood Pressure 141/78 06/18/18 05:58 O2 Sat by Pulse Oximetry (%) 97 06/17/18 21:00 Constitutional: Yes: No Distress, Calm Cardiovascular: Yes: Regular Rate and Rhythm Respiratory: Yes: Regular, CTA Bilaterally Gastrointestinal: Yes: Normal Bowel Sounds, Soft Musculoskeletal: Yes: WNL Extremities: Yes: Other Wound/Incision: Yes: Other (sacral decubitus ulcer) Neurological: Yes: Alert Labs: CBC, BMP 06/18/18 06:00 06/18/18 06:00 INR, PTT INR 1.24 (0.83-1.09) H 06/18/18 06:00 Assessment/Plan patient with multiple medical problems coming in with sepsis uti and bacteremia with elevated liver enzymes and fever nimisha gm negative bacteremia wound infection dm sepsis uti growing esbl wound cx and sensitivities note plan continue current mgmt patient will need iv meropenam for 2 weeks als added doxy to the regimen hydration nutrition rest as per the team
--- NOTE | 2018-06-18 13:47 | PN ---
Progress Note (short form) - Note Progress Note: Patient seen and examined Sleepy , arousable to understand Last Vital Signs Temp Pulse Resp BP Pulse Ox 98.1 F 92 H 20 141/78 97 06/18/18 05:58 06/18/18 05:58 06/18/18 05:58 06/18/18 05:58 06/17/18 21:00 No icterus Dry mucous membranes lungs with diminished breath sounds Cor -RSR Soft abdomen No significant edema;heel boots Deemed functionally incompetent CBC, BMP 06/18/18 06:00 06/18/18 06:00 Current Medications Generic Name Dose Route Start Last Admin Trade Name Freq PRN Reason Stop Dose Admin Acetaminophen 975 mg 06/16/18 15:13 Tylenol - PO Q8H PRN PAIN OR FEVER Albuterol/Ipratropium 1 amp 06/16/18 15:09 Duoneb - NEB Q6H PRN SHORTNESS OF BREATH Ascorbic Acid 500 mg 06/13/18 22:00 06/18/18 11:14 Vitamin C - PO 500 mg BID JEF Administration Cyanocobalamin 1,000 mcg 06/15/18 10:00 06/18/18 11:16 Vitamin B12 Injection - IM 06/19/18 10:01 1,000 mcg DAILY JEF Administration Doxycycline Hyclate 100 mg 06/18/18 18:00 Vibramycin - PO BID@1000,1800 JEF Epoetin Darrell 20,000 unit 06/15/18 10:00 06/18/18 11:22 Procrit - SQ 06/19/18 10:01 20,000 unit DAILY JEF Administration Folic Acid 1 mg 06/15/18 10:00 06/18/18 11:15 Folic Acid - PO 1 mg DAILY JEF Administration Heparin Sodium (Porcine) 5,000 unit 06/13/18 22:00 06/18/18 11:15 Heparin - SQ 5,000 unit BID JEF Administration Meropenem 1 gm/ Dextrose 100 mls @ 200 mls/hr 06/13/18 18:00 06/18/18 11:14 IVPB 200 mls/hr Q8H-IV JEF Administration Insulin Aspart 1 vial 06/14/18 13:40 06/18/18 11:25 Novolog Vial Sliding Scale - SQ Not Given ACHS ON LICENSE OF [facility] Protocol Metoprolol Tartrate 25 mg 06/14/18 10:00 06/18/18 11:14 Lopressor - PO 25 mg DAILY JEF Administration Mirtazapine 15 mg 06/17/18 22:00 06/17/18 21:46 Remeron - PO 15 mg HS JEF Administration Multi-Ingredient Ointment 1 applic 06/13/18 22:00 06/18/18 11:17 Zinc Oxide TP 1 applic BID JEF Administration Multivitamins/Minerals/Vitamin C 1 tab 06/14/18 10:00 06/18/18 11:16 Tab-A-Vit - PO 1 tab DAILY JEF Administration Pantoprazole Sodium 40 mg 06/14/18 10:00 06/18/18 11:14 Protonix - PO 40 mg DAILY JEF Administration Polyethylene Glycol 17 gm 06/14/18 10:00 06/18/18 11:15 Miralax (For Bowel Prep) - PO 17 gm DAILY JEF Administration Impression: ESBL bacteremia - on antibiotics per I.D. Abnormal MRI with liver masses /abnormal LFT's Anemia- low Fe++, Low TIBC, elevated ferritin compatible with chronic disease Functional incapacity ?? of goals ?? if HCP still requests aggressive workup
--- NOTE | 2018-06-18 15:37 | PN ---
Progress Note (short form) - Note Progress Note: Dr. Tj Marcos will be covering for me on -. Starting Jun 21, please call either Dr. Hernandez, or Maldonado if inpatient follow up is needed.
[2018-06-18] MEDS: DOXYCYCLINE HYCLATE 100 MG CAPSULE PO SCH (18:40)
--- NOTE | 2018-06-18 20:44 | PN ---
Progress Note, Physician Chief Complaint: ASLEEP WEAK LETHARGIC - Current Medication List Current Medications: Active Medications Acetaminophen (Tylenol -) 975 mg PO Q8H PRN PRN Reason: PAIN OR FEVER Albuterol/Ipratropium (Duoneb -) 1 amp NEB Q6H PRN PRN Reason: SHORTNESS OF BREATH Ascorbic Acid (Vitamin C -) 500 mg PO BID [facility] Last Admin: 06/18/18 11:14 Dose: 500 mg Cyanocobalamin (Vitamin B12 Injection -) 1,000 mcg IM DAILY [facility] Stop: 06/19/18 10:01 Last Admin: 06/18/18 11:16 Dose: 1,000 mcg Doxycycline Hyclate (Vibramycin -) 100 mg PO BID@1000,1800 [facility] Last Admin: 06/18/18 18:40 Dose: 100 mg Epoetin Darrell (Procrit -) 20,000 unit SQ DAILY [facility] Stop: 06/19/18 10:01 Last Admin: 06/18/18 11:22 Dose: 20,000 unit Folic Acid (Folic Acid -) 1 mg PO DAILY [facility] Last Admin: 06/18/18 11:15 Dose: 1 mg Heparin Sodium (Porcine) (Heparin -) 5,000 unit SQ BID [facility] Last Admin: 06/18/18 11:15 Dose: 5,000 unit Meropenem 1 gm/ Dextrose 100 mls @ 200 mls/hr IVPB Q8H-IV [facility] Last Admin: 06/18/18 18:39 Dose: 200 mls/hr Potassium Chloride (Potassium Chloride 10 Meq Premix Ivpb -) 10 meq in 100 mls @ 100 mls/hr IVPB Q60M [facility] Stop: 06/18/18 21:44 Insulin Aspart (Novolog Vial Sliding Scale -) 1 vial SQ ACHS [facility]; Protocol Last Admin: 06/18/18 19:21 Dose: Not Given Metoprolol Tartrate (Lopressor -) 25 mg PO DAILY [facility] Last Admin: 06/18/18 11:14 Dose: 25 mg Mirtazapine (Remeron -) 15 mg PO HS [facility] Last Admin: 06/17/18 21:46 Dose: 15 mg Multi-Ingredient Ointment (Zinc Oxide) 1 applic TP BID [facility] Last Admin: 06/18/18 11:17 Dose: 1 applic Multivitamins/Minerals/Vitamin C (Tab-A-Vit -) 1 tab PO DAILY [facility] Last Admin: 06/18/18 11:16 Dose: 1 tab Pantoprazole Sodium (Protonix -) 40 mg PO DAILY [facility] Last Admin: 06/18/18 11:14 Dose: 40 mg Polyethylene Glycol (Miralax (For Bowel Prep) -) 17 gm PO DAILY [facility] Last Admin: 06/18/18 11:15 Dose: 17 gm - Objective Vital Signs: Vital Signs Temperature 97.4 F L 06/18/18 17:14 Pulse Rate 85 06/18/18 17:14 Respiratory Rate 20 06/18/18 17:14 Blood Pressure 149/78 06/18/18 17:14 O2 Sat by Pulse Oximetry (%) 97 06/18/18 09:00 Constitutional: Yes: Cachectic, Moderate Distress Eyes: Yes: WNL HENT: Yes: WNL Neck: Yes: WNL Cardiovascular: Yes: WNL Respiratory: Yes: Diminished, On Nasal O2 Gastrointestinal: Yes: WNL Genitourinary: Yes: Incontinence Musculoskeletal: Yes: Muscle Weakness Extremities: Yes: Other Edema: No Peripheral Pulses WNL: Yes Integumentary: Yes: Pressure Ulcer, Venous Stasis Changes Wound/Incision: Yes: Dressing Dry and Intact Neurological: Yes: Pre-Existing Deficit ...Motor Strength: LLE, RLE Psychiatric: Yes: Other Labs: CBC, BMP 06/18/18 06:00 06/18/18 06:00 INR, PTT INR 1.24 (0.83-1.09) H 06/18/18 06:00 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 (3) Abnormal liver enzymes Code(s): R74.8 - ABNORMAL LEVELS OF OTHER SERUM ENZYMES (4) Sacral decubitus ulcer, stage IV Code(s): L89.154 - PRESSURE ULCER OF SACRAL REGION, STAGE 4 (5) Sepsis Code(s): A41.9 - SEPSIS, UNSPECIFIED ORGANISM Qualifiers: Sepsis type: sepsis due to unspecified organism Qualified Code(s): A41.9 - Sepsis, unspecified organism (6) Anemia Code(s): D64.9 - ANEMIA, UNSPECIFIED (7) Bacteremia Code(s): R78.81 - BACTEREMIA (8) Fever Code(s): R50.9 - FEVER, UNSPECIFIED Qualifiers: Fever type: unspecified Qualified Code(s): R50.9 - Fever, unspecified Assessment/Plan ONCOLOGY WORKUP UNDERWAY FAMILY REFUSED LIVER BIOPSY PER BECAUSE HER IS NOT A CANDIDATE FOR ANY SURGERY OR CHEMOTHERPAY THE RISK AT THIS POINT OUTWEIGHS THE BENEFIT. CAN READDRESS THIS AFTER TREATED WITH IV ABX FOR SEPSIS AND WOUND CARE IMPROVES. PLASTIC SURGERY EVAL FOR SACRAL STAGE 4 ULCER COLLAGENASE DAILY CLEANSING DVT PROPHYLAXIS MONITOR LABS ANEMIA WORKUP FAMILY REFUSING TRANSFUSION B/C OF RELIGOUS REASONS POTASSIUM REPLETE
[2018-06-18] MEDS ORDERED: KCL 10 MEQ IVPB 10 MEQ/100 ML INFUS.BAG IVPB SCH (20:45)
[2018-06-18] MEDS: MIRTAZAPINE 15 MG TABLET (FP) PO SCH (21:46)
[2018-06-19] MEDS: MEROPENEM 1 GM in DEXTROSE 5%-WATER 100 ML IVPB SCH ×3 (01:54→17:51)
[2018-06-19] MEDS: INSULIN SLIDING SCALE (NOVOLOG) 1 VIAL SQ SCH ×4 (06:41→22:38)
[2018-06-19 08:03] LABS: HEMATOCRIT 23.6 % (35.4-49); HEMOGLOBIN 7.4 GM/dL (11.7-16.9); MCH 25.4 pg (25.7-33.7); MCHC 31.2 g/dl (32.0-35.9); MEAN CELL VOLUME 81.4 fl (80-96); MEAN PLT VOLUME 8.4 fl (7.5-11.1); PLATELET COUNT 129 K/MM3 (134-434); RDW 19.6 % (11.9-15.9); WHITE BLOOD COUNT 13.7 K/mm3 (4.0-10.0)
[2018-06-19 08:09] LABS: ANION GAP 10 MMOL/L (8-16); BLOOD UREA NITROGEN 56 mg/dL (7-18); CALCIUM 7.9 mg/dL (8.5-10.1); CHLORIDE 109 mmol/L (98-107); CO2 23 mmol/L (21-32); GLUCOSE,RANDOM 134 mg/dL (74-106); POTASSIUM 3.8 mmol/L (3.5-5.1); SODIUM 141 mmol/L (136-145)
[2018-06-19] MEDS ORDERED: PT OWN MED DRAWER 7, Y5N ONE ×2 (09:07→22:17)
[2018-06-19] MEDS: HEPARIN NA (PORCINE) 5,000 UNITS/ML 1ML VIAL SQ SCH ×2 (09:09→22:38)
[2018-06-19] MEDS: MULTIVITAMINS (DAILY MVI) TABLET (FP) PO SCH (09:09)
[2018-06-19] MEDS: METOPROLOL TARTRATE 25 MG TABLET (FP) PO SCH (09:10)
[2018-06-19] MEDS: CYANOCOBALAMIN (VITAMIN B-12) 1000 MCG/1 ML VIAL IM SCH (09:10)
[2018-06-19] MEDS: ASCORBIC ACID 500 MG TABLET (FP) PO SCH ×2 (09:10→22:39)
[2018-06-19] MEDS: DOXYCYCLINE HYCLATE 100 MG CAPSULE PO SCH ×2 (09:10→17:52)
[2018-06-19] MEDS: PANTOPRAZOLE 40 MG TABLET (FP) PO SCH (09:10)
[2018-06-19] MEDS: FOLIC ACID 1 MG TABLET (FP) PO SCH (09:10)
[2018-06-19] MEDS: ZINC OXIDE 20% TOPICAL OINTMENT 30 GM TUBE TP SCH ×2 (09:11→22:39)
[2018-06-19] MEDS: POLYETHYLENE GLYCOL 3350 255 GM BTL PO SCH (09:11)
[2018-06-19] MEDS: EPOETIN ALFA 20,000 UNIT/1 ML VIAL SQ SCH (09:14)
[2018-06-19] MEDS ORDERED: ALBUTEROL SO4 2.5/IPRATROPIUM 0.5 INH SOL 3 ML VIAL.NEB. NEB STA (11:31)
[2018-06-19] MEDS ORDERED: SODIUM CHLORIDE NASAL SPRAY 44 ML BOTTLE NS PRN (11:32)
--- NOTE | 2018-06-19 11:33 | PN ---
Progress Note, Physician History of Present Illness: poor intake - Current Medication List Current Medications: Active Medications Acetaminophen (Tylenol -) 975 mg PO Q8H PRN PRN Reason: PAIN OR FEVER Ascorbic Acid (Vitamin C -) 500 mg PO BID [facility] Last Admin: 06/19/18 09:10 Dose: 500 mg Doxycycline Hyclate (Vibramycin -) 100 mg PO BID@1000,1800 [facility] Last Admin: 06/19/18 09:10 Dose: 100 mg Folic Acid (Folic Acid -) 1 mg PO DAILY [facility] Last Admin: 06/19/18 09:10 Dose: 1 mg Heparin Sodium (Porcine) (Heparin -) 5,000 unit SQ BID [facility] Last Admin: 06/19/18 09:09 Dose: 5,000 unit Meropenem 1 gm/ Dextrose 100 mls @ 200 mls/hr IVPB Q8H-IV [facility] Last Admin: 06/19/18 09:09 Dose: 200 mls/hr Insulin Aspart (Novolog Vial Sliding Scale -) 1 vial SQ ACHS [facility]; Protocol Last Admin: 06/19/18 06:41 Dose: Not Given Metoprolol Tartrate (Lopressor -) 25 mg PO DAILY [facility] Last Admin: 06/19/18 09:10 Dose: 25 mg Mirtazapine (Remeron -) 15 mg PO HS [facility] Last Admin: 06/18/18 21:46 Dose: 15 mg Multi-Ingredient Ointment (Zinc Oxide) 1 applic TP BID [facility] Last Admin: 06/19/18 09:11 Dose: 1 applic Multivitamins/Minerals/Vitamin C (Tab-A-Vit -) 1 tab PO DAILY [facility] Last Admin: 06/19/18 09:09 Dose: 1 tab Pantoprazole Sodium (Protonix -) 40 mg PO DAILY [facility] Last Admin: 06/19/18 09:10 Dose: 40 mg Polyethylene Glycol (Miralax (For Bowel Prep) -) 17 gm PO DAILY [facility] Last Admin: 06/19/18 09:11 Dose: 17 gm - Objective Vital Signs: Vital Signs Temperature 98.1 F 06/19/18 09:31 Pulse Rate 82 06/19/18 09:31 Respiratory Rate 20 06/19/18 09:31 Blood Pressure 127/59 L 06/19/18 09:31 O2 Sat by Pulse Oximetry (%) 98 06/18/18 21:00 Cardiovascular: Yes: S1, S2 Respiratory: Yes: Diminished, On Nasal O2 Gastrointestinal: Yes: Normal Bowel Sounds, Soft Labs: CBC, BMP 06/19/18 06:00 06/19/18 06:00 INR, PTT INR 1.24 (0.83-1.09) H 06/18/18 06:00 Assessment/Plan Problems (1) Abnormal liver enzymes Assessment/Plan: abdominal MRI report noted--susp for mets--family refusing biopsy gi consult noted repeat labs Code(s): R74.8 - ABNORMAL LEVELS OF OTHER SERUM ENZYMES (2) Anemia Assessment/Plan: heme consult -Refusing prbc iron panel po iron stool ocult--note Code(s): D64.9 - ANEMIA, UNSPECIFIED (3) Bacteremia Assessment/Plan: Microbiology 06/12/18 17:22 Decubiti Gram Stain - Final 06/12/18 17:22 Decubiti Wound Culture - Preliminary Staphylococcus Latex Coag Pos Group D Strep Or Entero Coccus Proteus Mirabilis 06/12/18 17:22 Blood - Peripheral Venous Blood Culture - Final Escherichia Coli Esbl Silo Operator 06/12/18 17:10 Blood - Peripheral Venous Blood Culture - Final Escherichia Coli Esbl Silo Operator 06/14/18 06:40 Blood - Peripheral Venous Blood Culture - Preliminary NO GROWTH OBTAINED AFTER 24 HOURS, INCUBATION TO CONTINUE FOR 4 DAYS. 06/14/18 07:00 Blood - Peripheral Venous Blood Culture - Preliminary NO GROWTH OBTAINED AFTER 24 HOURS, INCUBATION TO CONTINUE FOR 4 DAYS. 06/12/18 09:20 Urine - Urine - Catheterized Urine Culture - Final Proteus Mirabilis meropenem ID follow up Code(s): R78.81 - BACTEREMIA (4) Sacral decubitus ulcer Assessment/Plan: wound care consult silvadene dvtppx turn and position Code(s): L89.159 - PRESSURE ULCER OF SACRAL REGION, UNSPECIFIED STAGE (5) Poor intake Assessment/Plan: -Clinimex -PEG D/W HCP
[2018-06-19] MEDS: AMINO ACIDS 4.25%/D5W 1,000 ML IV SCH (13:27)
--- NOTE | 2018-06-19 13:52 | PN ---
Progress Note, Physician History of Present Illness: Pt is afebrile, verbally responsive. Complains of generalized pain when asked but in no acute distress. - Current Medication List Current Medications: Active Medications Acetaminophen (Tylenol -) 975 mg PO Q8H PRN PRN Reason: PAIN OR FEVER Ascorbic Acid (Vitamin C -) 500 mg PO BID [facility] Last Admin: 06/19/18 09:10 Dose: 500 mg Doxycycline Hyclate (Vibramycin -) 100 mg PO BID@1000,1800 [facility] Last Admin: 06/19/18 09:10 Dose: 100 mg Folic Acid (Folic Acid -) 1 mg PO DAILY [facility] Last Admin: 06/19/18 09:10 Dose: 1 mg Heparin Sodium (Porcine) (Heparin -) 5,000 unit SQ BID [facility] Last Admin: 06/19/18 09:09 Dose: 5,000 unit Meropenem 1 gm/ Dextrose 100 mls @ 200 mls/hr IVPB Q8H-IV [facility] Last Admin: 06/19/18 09:09 Dose: 200 mls/hr Amino Acids (Clinimix -) 1,000 mls @ 84 mls/hr IV Q12H [facility] Last Admin: 06/19/18 13:27 Dose: 84 mls/hr Insulin Aspart (Novolog Vial Sliding Scale -) 1 vial SQ ACHS [facility]; Protocol Last Admin: 06/19/18 12:33 Dose: Not Given Metoprolol Tartrate (Lopressor -) 25 mg PO DAILY [facility] Last Admin: 06/19/18 09:10 Dose: 25 mg Mirtazapine (Remeron -) 15 mg PO HS [facility] Last Admin: 06/18/18 21:46 Dose: 15 mg Multi-Ingredient Ointment (Zinc Oxide) 1 applic TP BID [facility] Last Admin: 06/19/18 09:11 Dose: 1 applic Multivitamins/Minerals/Vitamin C (Tab-A-Vit -) 1 tab PO DAILY [facility] Last Admin: 06/19/18 09:09 Dose: 1 tab Pantoprazole Sodium (Protonix -) 40 mg PO DAILY [facility] Last Admin: 06/19/18 09:10 Dose: 40 mg Polyethylene Glycol (Miralax (For Bowel Prep) -) 17 gm PO DAILY [facility] Last Admin: 06/19/18 09:11 Dose: 17 gm Sodium Chloride ([place] [employer] Nasal [employer] -) 2 spray NS TID PRN PRN Reason: NASAL CONGESTION Last Admin: 06/19/18 13:41 Dose: 2 spray - Objective Vital Signs: Vital Signs Temperature 98.1 F 06/19/18 09:31 Pulse Rate 64 06/19/18 12:40 Respiratory Rate 20 06/19/18 09:31 Blood Pressure 127/59 L 06/19/18 09:31 O2 Sat by Pulse Oximetry (%) 95 06/19/18 12:40 Constitutional: Yes: No Distress, Calm Neck: Yes: Supple Cardiovascular: Yes: Regular Rate and Rhythm Respiratory: Yes: Regular Gastrointestinal: Yes: Normal Bowel Sounds, Soft Extremities: Yes: WNL Edema: No Integumentary: Yes: Pressure Ulcer (Sacral DU (patient is refusing examination)) Neurological: Yes: Alert Labs: CBC, BMP 06/19/18 06:00 06/19/18 06:00 INR, PTT INR 1.24 (0.83-1.09) H 06/18/18 06:00 Microbiology 06/14/18 06:40 Blood - Peripheral Venous Blood Culture - Final NO GROWTH AFTER 5 DAYS INCUBATION 06/14/18 07:00 Blood - Peripheral Venous Blood Culture - Final NO GROWTH AFTER 5 DAYS INCUBATION 06/12/18 17:22 Decubiti Gram Stain - Final 06/12/18 17:22 Decubiti Wound Culture - Final Mr S Aureus Vr Ec Faecalis Proteus Mirabilis 06/12/18 17:22 Blood - Peripheral Venous Blood Culture - Final Escherichia Coli Esbl Gas Treater 06/12/18 17:10 Blood - Peripheral Venous Blood Culture - Final Escherichia Coli Esbl Gas Treater 06/12/18 09:20 Urine - Urine - Catheterized Urine Culture - Final Proteus Mirabilis - ....Imaging Chest X-ray: Report Reviewed MRI: Report Reviewed 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 (3) Sacral decubitus ulcer Code(s): L89.159 - PRESSURE ULCER OF SACRAL REGION, UNSPECIFIED STAGE (4) Sepsis Code(s): A41.9 - SEPSIS, UNSPECIFIED ORGANISM Qualifiers: Sepsis type: sepsis due to unspecified organism Qualified Code(s): A41.9 - Sepsis, unspecified organism (5) Bacteremia Code(s): R78.81 - BACTEREMIA (6) Normocytic normochromic anemia Code(s): D64.9 - ANEMIA, UNSPECIFIED Assessment/Plan ESBL+ E. coli UTI Proteus UTI Infected Sacral DU Possible PNA Liver metastasis/ possible Spinal metastasis Leukocytosis -- wbc trending up, pt afebrile/vitals stable at this time -- continue Meropenem, Doxycycline added yesterday -- repeat cbc in am, monitor wbc -- Continue wound care/offloading -- Family is refusing biopsy -- latest blood cultures negative continue monitor
[2018-06-19] MEDS: MIRTAZAPINE 15 MG TABLET (FP) PO SCH (22:38)
[2018-06-20] MEDS ORDERED: PT OWN MED DRAWER 7, Y5N ONE ×2 (01:31→17:24)
[2018-06-20] MEDS: MEROPENEM 1 GM in DEXTROSE 5%-WATER 100 ML IVPB SCH ×3 (01:36→17:30)
[2018-06-20] MEDS: AMINO ACIDS 4.25%/D5W 1,000 ML IV SCH ×2 (01:36→15:21)
[2018-06-20] MEDS: INSULIN SLIDING SCALE (NOVOLOG) 1 VIAL SQ SCH ×4 (06:27→22:41)
[2018-06-20 06:57] LABS: BASO % 0.3 % (0-2.0); EOS % 1.2 % (0-4.5); HEMATOCRIT 21.6 % (35.4-49); MCH 25.5 pg (25.7-33.7); MCHC 31.5 g/dl (32.0-35.9); MEAN CELL VOLUME 80.8 fl (80-96); MEAN PLT VOLUME 8.5 fl (7.5-11.1); MONO % 4.5 % (3.8-10.2); PLATELET COUNT 141 K/MM3 (134-434); RBC 2.67 M/mm3 (4.00-5.60); RDW 20.2 % (11.9-15.9); WHITE BLOOD COUNT 14.8 K/mm3 (4.0-10.0)
[2018-06-20 07:14] LABS: HEMOGLOBIN 6.8 GM/dL (11.7-16.9)
[2018-06-20 09:38] LABS: ALBUMIN 1.5 g/dl (3.4-5.0); ALK PHOS 495 U/L (45-117); ANION GAP 15 MMOL/L (8-16); BILIRUBIN,TOTAL 0.8 mg/dL (0.2-1); BLOOD UREA NITROGEN 57 mg/dL (7-18); CALCIUM 8.1 mg/dL (8.5-10.1); CHLORIDE 106 mmol/L (98-107); CO2 18 mmol/L (21-32); GLUCOSE,RANDOM 167 mg/dL (74-106); POTASSIUM 3.3 mmol/L (3.5-5.1); SGOT/AST 69 U/L (15-37); SGPT/ALT 25 U/L (13-61); SODIUM 139 mmol/L (136-145); TOT PROT 5.4 g/dl (6.4-8.2)
[2018-06-20] MEDS: HEPARIN NA (PORCINE) 5,000 UNITS/ML 1ML VIAL SQ SCH ×2 (09:59→22:35)
[2018-06-20] MEDS: DOXYCYCLINE HYCLATE 100 MG CAPSULE PO SCH ×3 (09:59→17:31)
[2018-06-20] MEDS: MULTIVITAMINS (DAILY MVI) TABLET (FP) PO SCH ×2 (09:59→10:56)
[2018-06-20] MEDS: PANTOPRAZOLE 40 MG TABLET (FP) PO SCH ×2 (09:59→10:56)
[2018-06-20] MEDS: FOLIC ACID 1 MG TABLET (FP) PO SCH ×2 (09:59→10:56)
[2018-06-20] MEDS: ASCORBIC ACID 500 MG TABLET (FP) PO SCH ×3 (09:59→22:01)
[2018-06-20] MEDS: POLYETHYLENE GLYCOL 3350 255 GM BTL PO SCH (10:00)
[2018-06-20] MEDS ORDERED: EPOETIN ALFA 2,000 UNIT/1 ML VIAL SQ SCH (10:00)
[2018-06-20] MEDS: METOPROLOL TARTRATE 25 MG TABLET (FP) PO SCH ×2 (10:00→10:56)
[2018-06-20] MEDS: ZINC OXIDE 20% TOPICAL OINTMENT 30 GM TUBE TP SCH ×2 (10:00→22:35)
--- NOTE | 2018-06-20 10:15 | PN ---
Progress Note, Physician - Current Medication List Current Medications: Active Medications Acetaminophen (Tylenol -) 975 mg PO Q8H PRN PRN Reason: PAIN OR FEVER Ascorbic Acid (Vitamin C -) 500 mg PO BID [facility] Last Admin: 06/20/18 09:59 Dose: 500 mg Doxycycline Hyclate (Vibramycin -) 100 mg PO BID@1000,1800 [facility] Last Admin: 06/20/18 09:59 Dose: 100 mg Epoetin Darrell (Procrit -) 20,000 unit SQ DAILY [facility] Stop: 06/21/18 10:01 Folic Acid (Folic Acid -) 1 mg PO DAILY [facility] Last Admin: 06/20/18 09:59 Dose: 1 mg Heparin Sodium (Porcine) (Heparin -) 5,000 unit SQ BID [facility] Last Admin: 06/20/18 09:59 Dose: 5,000 unit Meropenem 1 gm/ Dextrose 100 mls @ 200 mls/hr IVPB Q8H-IV [facility] Last Admin: 06/20/18 10:00 Dose: 200 mls/hr Amino Acids (Clinimix -) 1,000 mls @ 84 mls/hr IV Q12H [facility] Last Admin: 06/20/18 01:36 Dose: 84 mls/hr Insulin Aspart (Novolog Vial Sliding Scale -) 1 vial SQ ACHS [facility]; Protocol Last Admin: 06/20/18 06:27 Dose: 2 units Metoprolol Tartrate (Lopressor -) 25 mg PO DAILY [facility] Last Admin: 06/20/18 10:00 Dose: 25 mg Mirtazapine (Remeron -) 15 mg PO HS [facility] Last Admin: 06/19/18 22:38 Dose: 15 mg Multi-Ingredient Ointment (Zinc Oxide) 1 applic TP BID [facility] Last Admin: 06/20/18 10:00 Dose: 1 applic Multivitamins/Minerals/Vitamin C (Tab-A-Vit -) 1 tab PO DAILY [facility] Last Admin: 06/20/18 09:59 Dose: 1 tab Pantoprazole Sodium (Protonix -) 40 mg PO DAILY [facility] Last Admin: 06/20/18 09:59 Dose: 40 mg Polyethylene Glycol (Miralax (For Bowel Prep) -) 17 gm PO DAILY [facility] Last Admin: 06/20/18 10:00 Dose: Not Given Sodium Chloride ([place] Nasal [place] -) 2 spray NS TID PRN PRN Reason: NASAL CONGESTION Last Admin: 06/19/18 13:41 Dose: 2 spray - Objective Vital Signs: Vital Signs Temperature 98.3 F 06/20/18 06:00 Pulse Rate 80 06/20/18 06:00 Respiratory Rate 20 06/20/18 06:00 Blood Pressure 149/76 06/20/18 06:00 O2 Sat by Pulse Oximetry (%) 94 L 06/20/18 01:09 Cardiovascular: Yes: S1, S2 Respiratory: Yes: Diminished Gastrointestinal: Yes: Normal Bowel Sounds, Soft Labs: CBC, BMP 06/20/18 05:30 06/20/18 05:30 INR, PTT INR 1.24 (0.83-1.09) H 06/18/18 06:00 Assessment/Plan Problems (1) Abnormal liver enzymes Assessment/Plan: abdominal MRI report noted--susp for mets--family refusing biopsy gi consult noted repeat labs Code(s): R74.8 - ABNORMAL LEVELS OF OTHER SERUM ENZYMES (2) Anemia Assessment/Plan: -GI consult noted -Refusing prbc -Hem follow up Code(s): D64.9 - ANEMIA, UNSPECIFIED (3) Bacteremia Assessment/Plan: Microbiology 06/12/18 17:22 Decubiti Gram Stain - Final 06/12/18 17:22 Decubiti Wound Culture - Preliminary Staphylococcus Latex Coag Pos Group D Strep Or Entero Coccus Proteus Mirabilis 06/12/18 17:22 Blood - Peripheral Venous Blood Culture - Final Escherichia Coli Esbl Stewarding Supervisor 06/12/18 17:10 Blood - Peripheral Venous Blood Culture - Final Escherichia Coli Esbl Stewarding Supervisor 06/14/18 06:40 Blood - Peripheral Venous Blood Culture - Preliminary NO GROWTH OBTAINED AFTER 24 HOURS, INCUBATION TO CONTINUE FOR 4 DAYS. 06/14/18 07:00 Blood - Peripheral Venous Blood Culture - Preliminary NO GROWTH OBTAINED AFTER 24 HOURS, INCUBATION TO CONTINUE FOR 4 DAYS. 06/12/18 09:20 Urine - Urine - Catheterized Urine Culture - Final Proteus Mirabilis meropenem ID follow up Code(s): R78.81 - BACTEREMIA (4) Sacral decubitus ulcer Assessment/Plan: wound care consult silvadene dvtppx turn and position Code(s): L89.159 - PRESSURE ULCER OF SACRAL REGION, UNSPECIFIED STAGE (5) Poor intake Assessment/Plan: -Clinimex -PEG D/W HCP
[2018-06-20] MEDS: EPOETIN ALFA 20,000 UNIT/1 ML VIAL SQ SCH (11:35)
[2018-06-20] MEDS: KCL 10 MEQ IVPB 10 MEQ/100 ML INFUS.BAG IVPB SCH ×2 (13:05→13:58)
--- NOTE | 2018-06-20 15:30 | PN ---
Progress Note, Physician History of Present Illness: Pt is alert, without acute distress. Noted to cough especially with oral intake. Wbc increasing trend, temp currently 99F. No diarrhea or other event noted. - Current Medication List Current Medications: Active Medications Acetaminophen (Tylenol -) 975 mg PO Q8H PRN PRN Reason: PAIN OR FEVER Ascorbic Acid (Vitamin C -) 500 mg PO BID [facility] Last Admin: 06/20/18 10:56 Dose: Not Given Doxycycline Hyclate (Vibramycin -) 100 mg PO BID@1000,1800 [facility] Last Admin: 06/20/18 10:55 Dose: Not Given Epoetin Darrell (Procrit -) 20,000 unit SQ DAILY [facility] Stop: 06/21/18 10:01 Last Admin: 06/20/18 11:35 Dose: 20,000 unit Folic Acid (Folic Acid -) 1 mg PO DAILY [facility] Last Admin: 06/20/18 10:56 Dose: Not Given Heparin Sodium (Porcine) (Heparin -) 5,000 unit SQ BID [facility] Last Admin: 06/20/18 09:59 Dose: 5,000 unit Meropenem 1 gm/ Dextrose 100 mls @ 200 mls/hr IVPB Q8H-IV [facility] Last Admin: 06/20/18 10:00 Dose: 200 mls/hr Amino Acids (Clinimix -) 1,000 mls @ 84 mls/hr IV Q12H [facility] Last Admin: 06/20/18 15:21 Dose: 84 mls/hr Insulin Aspart (Novolog Vial Sliding Scale -) 1 vial SQ ACHS [facility]; Protocol Last Admin: 06/20/18 11:41 Dose: Not Given Metoprolol Tartrate (Lopressor -) 25 mg PO DAILY [facility] Last Admin: 06/20/18 10:56 Dose: Not Given Mirtazapine (Remeron -) 15 mg PO HS [facility] Last Admin: 06/19/18 22:38 Dose: 15 mg Multi-Ingredient Ointment (Zinc Oxide) 1 applic TP BID [facility] Last Admin: 06/20/18 10:00 Dose: 1 applic Multivitamins/Minerals/Vitamin C (Tab-A-Vit -) 1 tab PO DAILY [facility] Last Admin: 06/20/18 10:56 Dose: Not Given Pantoprazole Sodium (Protonix -) 40 mg PO DAILY [facility] Last Admin: 06/20/18 10:56 Dose: Not Given Polyethylene Glycol (Miralax (For Bowel Prep) -) 17 gm PO DAILY [facility] Last Admin: 06/20/18 10:00 Dose: Not Given Sodium Chloride ([place] Nasal [place] -) 2 spray NS TID PRN PRN Reason: NASAL CONGESTION Last Admin: 06/19/18 13:41 Dose: 2 spray - Objective Vital Signs: Vital Signs Temperature 99.0 F 06/20/18 14:25 Pulse Rate 90 06/20/18 14:25 Respiratory Rate 18 06/20/18 14:25 Blood Pressure 134/67 06/20/18 14:25 O2 Sat by Pulse Oximetry (%) 98 06/20/18 09:00 Constitutional: Yes: No Distress, Calm Cardiovascular: Yes: Regular Rate and Rhythm Respiratory: Yes: Other (poor inspiratory effort, no wheezing/rales noted) Gastrointestinal: Yes: Normal Bowel Sounds, Soft Genitourinary: Yes: WNL Integumentary: Yes: Pressure Ulcer (St IV Sacral DU +pink/granulation, no purulence/malodor) Neurological: Yes: Alert Labs: CBC, BMP 06/20/18 05:30 06/20/18 05:30 INR, PTT INR 1.24 (0.83-1.09) H 06/18/18 06:00 Microbiology 06/14/18 06:40 Blood - Peripheral Venous Blood Culture - Final NO GROWTH AFTER 5 DAYS INCUBATION 06/14/18 07:00 Blood - Peripheral Venous Blood Culture - Final NO GROWTH AFTER 5 DAYS INCUBATION 06/12/18 17:22 Decubiti Gram Stain - Final 06/12/18 17:22 Decubiti Wound Culture - Final S Aureus Vr Ec Faecalis Proteus Mirabilis 06/12/18 17:22 Blood - Peripheral Venous Blood Culture - Final Escherichia Coli Esbl Individual Pension Adviser 06/12/18 17:10 Blood - Peripheral Venous Blood Culture - Final Escherichia Coli Esbl Individual Pension Adviser 06/12/18 09:20 Urine - Urine - Catheterized Urine Culture - Final Proteus Mirabilis - ....Imaging X-ray: Pending 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 (3) Sacral decubitus ulcer Code(s): L89.159 - PRESSURE ULCER OF SACRAL REGION, UNSPECIFIED STAGE (4) Sepsis Code(s): A41.9 - SEPSIS, UNSPECIFIED ORGANISM Qualifiers: Sepsis type: sepsis due to unspecified organism Qualified Code(s): A41.9 - Sepsis, unspecified organism (5) Bacteremia Code(s): R78.81 - BACTEREMIA (6) Normocytic normochromic anemia Code(s): D64.9 - ANEMIA, UNSPECIFIED Assessment/Plan ESBL+ E. coli UTI Proteus UTI Infected Sacral DU Possible PNA/Aspiration Liver metastasis/ possible Spinal metastasis Leukocytosis -- wbc trending up, pt with low grade fever -- follow up repeat CXR -- continue Meropenem -- Vancomycin 1 gram dose x 1 for now, monitor renal function -- repeat cbc in a.m. -- pt refusing oral meds -- suggest aspiration precautions -- Continue wound care/offloading -- Family is refusing biopsy -- latest blood cultures negative, if wbc continues to increase repeat cultures continue monitor
[2018-06-20] MEDS ORDERED: VANCOMYCIN 1 GM PREMIX - 1 GM/200 ML BAG IVPB ONE (15:31)
[2018-06-20] MEDS: MIRTAZAPINE 15 MG TABLET (FP) PO SCH (22:01)
[2018-06-21] MEDS: MEROPENEM 1 GM in DEXTROSE 5%-WATER 100 ML IVPB SCH ×3 (01:56→18:09)
[2018-06-21] MEDS: AMINO ACIDS 4.25%/D5W 1,000 ML IV SCH ×2 (03:29→15:33)
[2018-06-21 06:06] LABS: SERUM IRON SATURATION 38 % (15-55); TOTAL IRON BINDING CAPACITY 110 ug/dL (250-450); UIBC 68 ug/dL (111-343)
[2018-06-21] MEDS: INSULIN SLIDING SCALE (NOVOLOG) 1 VIAL SQ SCH ×4 (06:19→22:32)
[2018-06-21 06:45] LABS: BASO % 0.5 % (0-2.0); EOS % 1.2 % (0-4.5); HEMATOCRIT 23.8 % (35.4-49); HEMOGLOBIN 7.3 GM/dL (11.7-16.9); LYMPH % 15.9 % (8-40); MCH 24.8 pg (25.7-33.7); MCHC 30.7 g/dl (32.0-35.9); MEAN CELL VOLUME 80.9 fl (80-96); MEAN PLT VOLUME 8.4 fl (7.5-11.1); MONO % 5.5 % (3.8-10.2); NEUT % 76.9 % (42.8-82.8); PLATELET COUNT 133 K/MM3 (134-434); RBC 2.94 M/mm3 (4.00-5.60); RDW 19.9 % (11.9-15.9); WHITE BLOOD COUNT 14.9 K/mm3 (4.0-10.0)
[2018-06-21 07:28] LABS: ALBUMIN 1.5 g/dl (3.4-5.0); ALK PHOS 573 U/L (45-117); ANION GAP 13 MMOL/L (8-16); BILIRUBIN,TOTAL 0.8 mg/dL (0.2-1); BLOOD UREA NITROGEN 63 mg/dL (7-18); CALCIUM 8.4 mg/dL (8.5-10.1); CHLORIDE 103 mmol/L (98-107); CO2 19 mmol/L (21-32); GLUCOSE,RANDOM 149 mg/dL (74-106); POTASSIUM 3.7 mmol/L (3.5-5.1); SGOT/AST 77 U/L (15-37); SGPT/ALT 25 U/L (13-61); SODIUM 134 mmol/L (136-145); TOT PROT 5.5 g/dl (6.4-8.2)
--- NOTE | 2018-06-21 08:41 | PN ---
Progress Note, Physician Chief Complaint: PATIENT IN BED AWAKE AND ALERT X 2 NAD - Current Medication List Current Medications: Active Medications Acetaminophen (Tylenol -) 975 mg PO Q8H PRN PRN Reason: PAIN OR FEVER Ascorbic Acid (Vitamin C -) 500 mg PO BID [facility] Last Admin: 06/20/18 22:01 Dose: Not Given Doxycycline Hyclate (Vibramycin -) 100 mg PO BID@1000,1800 [facility] Last Admin: 06/20/18 17:31 Dose: Not Given Epoetin Darrell (Procrit -) 20,000 unit SQ DAILY [facility] Stop: 06/21/18 10:01 Last Admin: 06/20/18 11:35 Dose: 20,000 unit Folic Acid (Folic Acid -) 1 mg PO DAILY [facility] Last Admin: 06/20/18 10:56 Dose: Not Given Heparin Sodium (Porcine) (Heparin -) 5,000 unit SQ BID [facility] Last Admin: 06/20/18 22:35 Dose: 5,000 unit Meropenem 1 gm/ Dextrose 100 mls @ 200 mls/hr IVPB Q8H-IV [facility] Last Admin: 06/21/18 01:56 Dose: 200 mls/hr Amino Acids (Clinimix -) 1,000 mls @ 84 mls/hr IV Q12H [facility] Last Admin: 06/21/18 03:29 Dose: 84 mls/hr Insulin Aspart (Novolog Vial Sliding Scale -) 1 vial SQ ACHS [facility]; Protocol Last Admin: 06/21/18 06:19 Dose: Not Given Megestrol Acetate (Megace -) 20 mg PO DAILY [facility] Metoprolol Tartrate (Lopressor -) 25 mg PO DAILY [facility] Last Admin: 06/20/18 10:56 Dose: Not Given Mirtazapine (Remeron -) 15 mg PO HS [facility] Last Admin: 06/20/18 22:01 Dose: Not Given Multi-Ingredient Ointment (Zinc Oxide) 1 applic TP BID [facility] Last Admin: 06/20/18 22:35 Dose: 1 applic Multivitamins/Minerals/Vitamin C (Tab-A-Vit -) 1 tab PO DAILY [facility] Last Admin: 06/20/18 10:56 Dose: Not Given Pantoprazole Sodium (Protonix -) 40 mg PO DAILY [facility] Last Admin: 06/20/18 10:56 Dose: Not Given Polyethylene Glycol (Miralax (For Bowel Prep) -) 17 gm PO DAILY [facility] Last Admin: 06/20/18 10:00 Dose: Not Given Sodium Chloride ([place] Nasal [place] -) 2 spray NS TID PRN PRN Reason: NASAL CONGESTION Last Admin: 06/19/18 13:41 Dose: 2 spray Zinc Sulfate (Orazinc -) 220 mg PO DAILY [facility] - Objective Vital Signs: Vital Signs Temperature 97.4 F L 06/21/18 06:00 Pulse Rate 86 06/21/18 06:00 Respiratory Rate 18 06/21/18 06:00 Blood Pressure 154/70 06/21/18 06:00 O2 Sat by Pulse Oximetry (%) 98 06/20/18 21:00 Constitutional: Yes: Cachectic, Mild Distress Cardiovascular: Yes: WNL Respiratory: Yes: CTA Bilaterally, Cough, Diminished Gastrointestinal: Yes: WNL Genitourinary: Yes: Incontinence Musculoskeletal: Yes: Muscle Weakness Extremities: Yes: Other Edema: No Peripheral Pulses WNL: Yes Integumentary: Yes: Pressure Ulcer (STAGE 4 SACRAL ULCER), Rash, Venous Stasis Changes Wound/Incision: Yes: Dressing Dry and Intact, Unapproximated Neurological: Yes: Pre-Existing Deficit, Weakness ...Motor Strength: LLE, RLE Psychiatric: Yes: Other Labs: CBC, BMP 06/21/18 06:00 06/21/18 06:00 INR, PTT INR 1.24 (0.83-1.09) H 06/18/18 06:00 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 (3) Abnormal liver enzymes Code(s): R74.8 - ABNORMAL LEVELS OF OTHER SERUM ENZYMES (4) Sacral decubitus ulcer, stage IV Code(s): L89.154 - PRESSURE ULCER OF SACRAL REGION, STAGE 4 (5) Sepsis Code(s): A41.9 - SEPSIS, UNSPECIFIED ORGANISM Qualifiers: Sepsis type: sepsis due to unspecified organism Qualified Code(s): A41.9 - Sepsis, unspecified organism (6) Anemia Code(s): D64.9 - ANEMIA, UNSPECIFIED (7) Bacteremia Code(s): R78.81 - BACTEREMIA (8) Fever Code(s): R50.9 - FEVER, UNSPECIFIED Qualifiers: Fever type: unspecified Qualified Code(s): R50.9 - Fever, unspecified (9) Basilic vein thrombosis Code(s): I82.619 - ACUTE EMBOLISM AND THROMBOSIS OF SUPERFIC VN UNSP UP EXTREM Assessment/Plan ONCOLOGY WORKUP IN PROGRESS FAMILY REFUSED LIVER BIOPSY PER BECAUSE HER IS NOT A CANDIDATE FOR ANY SURGERY OR CHEMOTHERPAY THE RISK AT THIS POINT OUTWEIGHS THE BENEFIT. CAN READDRESS THIS AFTER TREATED WITH IV ABX FOR SEPSIS AND WOUND CARE IMPROVES. PLASTIC SURGERY EVAL FOR SACRAL STAGE 4 ULCER COLLAGENASE TO WOUND BASILIC VEIN THROMBOSIS VASCULAR SURGERY EVAL ESBL IN URINE PICC LINE WITH IV ABX OR PERIPHERAL LINE DAILY CLEANSING DVT PROPHYLAXIS MONITOR LABS ANEMIA WORKUP FAMILY REFUSING TRANSFUSION B/C OF RELIGOUS REASONS POTASSIUM REPLETE
[2018-06-21] MEDS ORDERED: PICC LINE 8 ML FLUSH PROTOCOL IVPUSH PRN (09:17)
--- NOTE | 2018-06-21 09:39 | PN ---
Progress Note, Physician History of Present Illness: continues to be very weak still very pale d/w speech and swallow modified ba ordered - Current Medication List Current Medications: Active Medications Acetaminophen (Tylenol -) 975 mg PO Q8H PRN PRN Reason: PAIN OR FEVER Ascorbic Acid (Vitamin C -) 500 mg PO BID [facility] Last Admin: 06/20/18 22:01 Dose: Not Given Doxycycline Hyclate (Vibramycin -) 100 mg PO BID@1000,1800 [facility] Last Admin: 06/20/18 17:31 Dose: Not Given Epoetin Darrell (Procrit -) 20,000 unit SQ DAILY [facility] Stop: 06/21/18 10:01 Last Admin: 06/20/18 11:35 Dose: 20,000 unit Folic Acid (Folic Acid -) 1 mg PO DAILY [facility] Last Admin: 06/20/18 10:56 Dose: Not Given Heparin Sodium (Porcine) (Heparin -) 5,000 unit SQ BID [facility] Last Admin: 06/20/18 22:35 Dose: 5,000 unit IV Flush (Picc Line Flush) 8 ml IVPUSH PRN PRN PRN Reason: Protocol Meropenem 1 gm/ Dextrose 100 mls @ 200 mls/hr IVPB Q8H-IV [facility] Last Admin: 06/21/18 01:56 Dose: 200 mls/hr Amino Acids (Clinimix -) 1,000 mls @ 84 mls/hr IV Q12H [facility] Last Admin: 06/21/18 03:29 Dose: 84 mls/hr Insulin Aspart (Novolog Vial Sliding Scale -) 1 vial SQ ACHS [facility]; Protocol Last Admin: 06/21/18 06:19 Dose: Not Given Megestrol Acetate (Megace -) 20 mg PO DAILY [facility] Metoprolol Tartrate (Lopressor -) 25 mg PO DAILY [facility] Last Admin: 06/20/18 10:56 Dose: Not Given Mirtazapine (Remeron -) 15 mg PO HS [facility] Last Admin: 06/20/18 22:01 Dose: Not Given Multi-Ingredient Ointment (Zinc Oxide) 1 applic TP BID [facility] Last Admin: 06/20/18 22:35 Dose: 1 applic Multivitamins/Minerals/Vitamin C (Tab-A-Vit -) 1 tab PO DAILY [facility] Last Admin: 06/20/18 10:56 Dose: Not Given Pantoprazole Sodium (Protonix -) 40 mg PO DAILY [facility] Last Admin: 06/20/18 10:56 Dose: Not Given Polyethylene Glycol (Miralax (For Bowel Prep) -) 17 gm PO DAILY [facility] Last Admin: 06/20/18 10:00 Dose: Not Given Sodium Chloride ([place] Nasal [place] -) 2 spray NS TID PRN PRN Reason: NASAL CONGESTION Last Admin: 06/19/18 13:41 Dose: 2 spray Zinc Sulfate (Orazinc -) 220 mg PO DAILY [facility] - Objective Vital Signs: Vital Signs Temperature 97.4 F L 06/21/18 06:00 Pulse Rate 86 06/21/18 06:00 Respiratory Rate 18 06/21/18 06:00 Blood Pressure 154/70 06/21/18 06:00 O2 Sat by Pulse Oximetry (%) 98 06/20/18 21:00 Constitutional: Yes: No Distress, Other (very weak,failure to thrive) Cardiovascular: Yes: Regular Rate and Rhythm Respiratory: Yes: Regular, CTA Bilaterally Gastrointestinal: Yes: Normal Bowel Sounds, Soft Musculoskeletal: Yes: WNL Extremities: Yes: WNL Neurological: Yes: Alert, Other Psychiatric: Yes: Other Labs: CBC, BMP 06/21/18 06:00 06/21/18 06:00 INR, PTT INR 1.24 (0.83-1.09) H 06/18/18 06:00 Assessment/Plan patient with multiple medical problems coming in with sepsis uti and bacteremia with elevated liver enzymes and fever nimisha gm negative bacteremia wound infection dm sepsis uti growing esbl wound cx and sensitivities note plan continue current mgmt continue abx modified ba swallow hydration nutrition rest as per the team
--- NOTE | 2018-06-21 09:55 | CONSULT ---
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: Yes: CVA Cardiovascular: Yes: HTN, Hyperlipdemia Hepatobiliary: Yes: Other (Hepatitis but unsure which type) Renal/: Yes: Renal Inusuff Heme/Onc: Yes: Anemia Infectious Disease: Yes: C-Diff Psych: Yes: Depression Musculoskeletal: Yes: Other (Sacral Decubitus) Endocrine: Yes: Diabetes Mellitus (IDDMI) - Past Surgical History Past Surgical History: Yes: Appendectomy (young child ) - Smoking History Smoking history: Never smoked Have you smoked in the past 12 months: No - Alcohol/Substance Use Hx Alcohol Use: No History of Substance Use: reports: None - Social History ADL: Support Services 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 History of Recent Travel: No History - Admission Reason For Visit: PRESSURE INJURY OF SACRAL REGION, STAGE 4 - Hearing Hearing: Normal Hearing Aide: No With Patient: No Speech Evaluation - Communication Primary Language: NEPALESE Communication: Yes: Simple Responses (WFL), Dysarthria - Speech Production Dysarthria: Yes: Flaccid Apraxia: No Able to Make Needs Known: Yes: Moderately Impaired Intelligibility: Yes: Severely Impaired (Slurred speech) - Speech Characteristics Voice Loudness: Mildly Soft/Quiet Voice Pitch: Yes: Severely Low Voice Phonatory-based Quality: Yes: Breathy, Quivering Speech Pattern: Impaired Speech Clarity: < 75% Nasal Resonance: Normal Articulation: Yes: Imprecise Rate of Speech: Too Slow Voice, Other Observations: Yes: Mouth Breathing, Disordered Intonation Voice Comment: Reduced Articulation. Vocal quality reduced - Language/Auditory Comprehension Follows: Yes: 1 Stage Simple Commands (WFL), 2 Stage Simple Commands (WFL) Observation: Able to respond to yes/no queries: Yes, Yes/No Confusion: No, Comprehends Conversational Speech: Yes, Benefits from Slow Speech: Yes, Benefits from Repetiton: Yes, Benefits from Increased Volume of Speech: No - Language/Verbal Expression Able to Respond to Simple Queries: Yes: Moderately Impaired (secondary to reduced articulation) Able to Communicate Wants and Needs: Yes: Moderately Impaired (secondary to reduced articulation) Functional Communication Status: Yes: Moderately Impaired (secondary to reduced articulation) Aware of Errors: No Attempts to Correct Errors: No Use of Gestures: Yes Written Expression: not examined Oral Expression: disordered Reading Comprehension: not examined Calculations: not examined Attention: Yes: Minimal Impairment - Memory/Perception skilled nursing Memory: Yes: Moderately Impaired Short Term Memory: Yes: Moderately Impaired - Swallow Evaluation/Bedside Assessment Current Nutritional Intake: Dysphagia Pureed, [place] Textured Liquids Oral Secretions: Yes: WFL, Tongue Coated Tracheostomy Present: No Patient on Ventilator: No Dentition: Yes: Edentulous, Missing Teeth Facial Symmetry at Rest: Symmetrical Facial Symmetry on Retraction: Symmetrical Facial Movement: Controlled Sensation: Normal Facial Comment: appears WFL for speech and swallowing purposes Jaw Position: Open at Rest Against Resistance Opening: Weak Against Resistance Closing: Weak Pucker Lips: Weak Lips, Comment: appears WFL for speech and swallowing purposes Lingual Movement: Normal Lingual Speed of Movement: Reduced Lingual Movement Strgth Against Opposition: Reduced Lingual Movement Characteristics: Jerky Lingual Comment: appears WFL for speech and swallowing purposes Soft Palate Description: Normal Color Hard Palate Description: Normal Color Gag Reflex: Weak Bite Reflex: Present Laryngeal Elevation: WFL Laryngeal Movement: Able to Palpate Needs Assistance: Yes Rate of Intake: Slow/Holding Bolus Size: WFL Sensation: Bite Reflex Labial Seal: WFL Chewing: Impaired Oral Prep Time: Increased A-P Transit: Impaired Pocketing: None Timing of Swallow: Delayed (2-3 seconds) Coughing/Throat Clear: No Change in Voice: No Other Findings/Remarks: 72 yo male seen at bedside for swallow eval to r/o dysphagia. Pt is verbal with reduced articulation, A&Ox1, confused at times. PMHX includes JORDAN, DM, sepsis, wouldifection, UTI. Current diet: pureed/nectar thicken liquids. Pt given po trials of puree with total assistance, revealed reduced acceptance, reduce bolus formation and transport, pharyngeal swallow is delayed 2-3 with subtle cough occasionally, no changes in voicing. Pt given po trials of ice chips, thin and thicken liquids with total assistance revealed revealed reduced acceptance, adequate labial containment and transit pharyngeal swallow is delayed 2-3 with subtle cough occasionally, no changes in voicing. Recommendations - Speech Evaluation, Impression/Plan Impression: Pt presents with mild to moderate dysphagia with questionable s/s of aspiration for pureed, thin and nectar thicken liquids. Intelligibility is reduced. Usp Goals: tolerate the least restricted diet without s/s of aspiration Short Term Goals: tolerate purees and nectar thicken liquids without s/s of aspiration. Improve speech intelligibility - Dysphagia Impressions/Plan Swallowing Skills: Impaired Dysphagia Impressions: Mild Impairment, Moderate Impairment, Risk of Aspiration , Suspect Aspiration *Silent aspiration: cannot be R/O at bedside Dysphagia Treatment Plan: Small Bites, Safe Rate, 1/2 tsp. at a time, Elevate HOB during feed, Other (monitor nutritional intake and pulmonary status) Dysphagia Evaluation Summary: Pt is able to tolerate pureed and nectar thicken liquids with minimal s/s aspiration. MBS order to determine aspiration risk. Continue current diet, observe standard aspiration precautions. Crush meds. Results given verbal to pharmacist in charge owner and to pcp via chart Recommendations: Modified Barium Swallow (ordered) - Recommendations Diet Consistency: Dysphagia Pureed Medication Administration: Crushed with applesauce Liquids: [place] Thick
[2018-06-21] MEDS: METOPROLOL TARTRATE 25 MG TABLET (FP) PO SCH (10:12)
[2018-06-21] MEDS: FOLIC ACID 1 MG TABLET (FP) PO SCH (10:12)
[2018-06-21] MEDS: HEPARIN NA (PORCINE) 5,000 UNITS/ML 1ML VIAL SQ SCH ×2 (10:12→22:32)
[2018-06-21] MEDS: MEGESTROL ACETATE 20 MG TABLET PO SCH (10:12)
[2018-06-21] MEDS: POLYETHYLENE GLYCOL 3350 255 GM BTL PO SCH (10:13)
[2018-06-21] MEDS: MULTIVITAMINS (DAILY MVI) TABLET (FP) PO SCH (10:13)
[2018-06-21] MEDS: DOXYCYCLINE HYCLATE 100 MG CAPSULE PO SCH ×2 (10:13→18:09)
[2018-06-21] MEDS: ASCORBIC ACID 500 MG TABLET (FP) PO SCH ×2 (10:13→22:33)
[2018-06-21] MEDS: ZINC SULFATE 220 MG CAPSULE (FP) PO SCH (10:13)
[2018-06-21] MEDS: PANTOPRAZOLE 40 MG TABLET (FP) PO SCH (10:13)
[2018-06-21] MEDS: EPOETIN ALFA 20,000 UNIT/1 ML VIAL SQ SCH (10:19)
[2018-06-21] MEDS: ZINC OXIDE 20% TOPICAL OINTMENT 30 GM TUBE TP SCH ×2 (11:25→22:33)
--- NOTE | 2018-06-21 15:39 | PN ---
Progress Note, METAL SPRAYER - Note Progress Note: 72 yo male seen in radiology for MBS, lateral view with Dr. Walters to determine risk of aspiration. Pt would not participate in MBS procedure. METAL SPRAYER unable to confirm bedside recommendations for puree with nectar thicken liquids at this time. Trial pureed with thicken liquids via cup as tolerated. Observe standard aspiration precautions. Crush meds in pureed or applesauce. Results given to cupola charger verbally and to pcp via chart. METAL SPRAYER to follow up for diet tolerance.
[2018-06-21] MEDS ORDERED: IRON SUCROSE INJECTION 200 MG in SODIUM CHLORIDE 90 ML IVPB ONE (21:00)
[2018-06-21] MEDS: MIRTAZAPINE 15 MG TABLET (FP) PO SCH (22:33)
[2018-06-22] MEDS: MEROPENEM 1 GM in DEXTROSE 5%-WATER 100 ML IVPB SCH ×3 (01:43→17:20)
[2018-06-22] MEDS: AMINO ACIDS 4.25%/D5W 1,000 ML IV SCH ×3 (03:29→23:52)
[2018-06-22] MEDS: INSULIN SLIDING SCALE (NOVOLOG) 1 VIAL SQ SCH (06:22)
--- NOTE | 2018-06-22 08:35 | PN ---
Progress Note, Physician History of Present Illness: pain and swelling left arm very weak generalized edema - Current Medication List Current Medications: Active Medications Acetaminophen (Tylenol -) 975 mg PO Q8H PRN PRN Reason: PAIN OR FEVER Ascorbic Acid (Vitamin C -) 500 mg PO BID [facility] Last Admin: 06/21/18 10:13 Dose: Not Given Doxycycline Hyclate (Vibramycin -) 100 mg PO BID@1000,1800 [facility] Last Admin: 06/21/18 18:09 Dose: Not Given Folic Acid (Folic Acid -) 1 mg PO DAILY [facility] Last Admin: 06/21/18 10:12 Dose: Not Given Heparin Sodium (Porcine) (Heparin -) 5,000 unit SQ BID [facility] Last Admin: 06/21/18 22:32 Dose: 5,000 unit IV Flush (Picc Line Flush) 8 ml IVPUSH PRN PRN PRN Reason: Protocol Meropenem 1 gm/ Dextrose 100 mls @ 200 mls/hr IVPB Q8H-IV [facility] Last Admin: 06/22/18 01:43 Dose: 200 mls/hr Amino Acids (Clinimix -) 1,000 mls @ 84 mls/hr IV Q12H [facility] Last Admin: 06/22/18 03:29 Dose: 84 mls/hr Insulin Aspart (Novolog Vial Sliding Scale -) 1 vial SQ ACHS [facility]; Protocol Last Admin: 06/22/18 06:22 Dose: Not Given Megestrol Acetate (Megace -) 20 mg PO DAILY [facility] Last Admin: 06/21/18 10:12 Dose: Not Given Metoprolol Tartrate (Lopressor -) 25 mg PO DAILY [facility] Last Admin: 06/21/18 10:12 Dose: Not Given Mirtazapine (Remeron -) 15 mg PO HS [facility] Last Admin: 06/20/18 22:01 Dose: Not Given Multi-Ingredient Ointment (Zinc Oxide) 1 applic TP BID [facility] Last Admin: 06/21/18 22:33 Dose: 1 applic Multivitamins/Minerals/Vitamin C (Tab-A-Vit -) 1 tab PO DAILY [facility] Last Admin: 06/21/18 10:13 Dose: Not Given Pantoprazole Sodium (Protonix -) 40 mg PO DAILY [facility] Last Admin: 06/21/18 10:13 Dose: Not Given Polyethylene Glycol (Miralax (For Bowel Prep) -) 17 gm PO DAILY [facility] Last Admin: 06/21/18 10:13 Dose: Not Given Sodium Chloride ([place] Nasal [place] -) 2 spray NS TID PRN PRN Reason: NASAL CONGESTION Last Admin: 06/19/18 13:41 Dose: 2 spray Zinc Sulfate (Orazinc -) 220 mg PO DAILY [facility] Last Admin: 06/21/18 10:13 Dose: Not Given - Objective Vital Signs: Vital Signs Temperature 98.7 F 06/22/18 05:38 Pulse Rate 81 06/22/18 05:38 Respiratory Rate 22 H 06/22/18 05:38 Blood Pressure 133/51 L 06/22/18 05:38 O2 Sat by Pulse Oximetry (%) 98 06/21/18 21:00 Constitutional: Yes: Calm, Mild Distress Eyes: Yes: Conjunctiva Clear Cardiovascular: Yes: Regular Rate and Rhythm Respiratory: Yes: Regular, Poor Air Entry (at the base) Gastrointestinal: Yes: Normal Bowel Sounds, Soft Musculoskeletal: Yes: WNL Extremities: Yes: Other (left arm swollen) Neurological: Yes: Alert Labs: CBC, BMP 06/21/18 06:00 06/21/18 06:00 INR, PTT INR 1.24 (0.83-1.09) H 06/18/18 06:00 Assessment/Plan patient with multiple medical problems coming in with sepsis uti and bacteremia with elevated liver enzymes and fever nimisha gm negative bacteremia wound infection dm sepsis uti growing esbl wound cx and sensitivities note plan continue current mgmt continue abx will order u/s of the left arm rest as per arm
[2018-06-22] MEDS ORDERED: PT OWN MED DRAWER 7, Y5N ONE ×2 (09:44→17:02)
--- NOTE | 2018-06-22 11:02 | PN ---
Progress Note, Physician Chief Complaint: patient is coughing , not taking oral meds now made NPO awating Emperatriz vines to r/o dvt ix abx meropenem for bacteremia wants to take patient home - Current Medication List Current Medications: Active Medications Acetaminophen (Tylenol -) 975 mg PO Q8H PRN PRN Reason: PAIN OR FEVER Ascorbic Acid (Vitamin C -) 500 mg PO BID [facility] Last Admin: 06/21/18 10:13 Dose: Not Given Doxycycline Hyclate (Vibramycin -) 100 mg PO BID@1000,1800 [facility] Last Admin: 06/21/18 18:09 Dose: Not Given Folic Acid (Folic Acid -) 1 mg PO DAILY [facility] Last Admin: 06/21/18 10:12 Dose: Not Given Heparin Sodium (Porcine) (Heparin -) 5,000 unit SQ BID [facility] Last Admin: 06/21/18 22:32 Dose: 5,000 unit IV Flush (Picc Line Flush) 8 ml IVPUSH PRN PRN PRN Reason: Protocol Meropenem 1 gm/ Dextrose 100 mls @ 200 mls/hr IVPB Q8H-IV [facility] Last Admin: 06/22/18 09:49 Dose: 200 mls/hr Amino Acids (Clinimix -) 1,000 mls @ 84 mls/hr IV Q12H [facility] Last Admin: 06/22/18 03:29 Dose: 84 mls/hr Megestrol Acetate (Megace -) 20 mg PO DAILY [facility] Last Admin: 06/21/18 10:12 Dose: Not Given Metoprolol Tartrate (Lopressor -) 25 mg PO DAILY [facility] Last Admin: 06/21/18 10:12 Dose: Not Given Mirtazapine (Remeron -) 15 mg PO HS [facility] Last Admin: 06/20/18 22:01 Dose: Not Given Multi-Ingredient Ointment (Zinc Oxide) 1 applic TP BID [facility] Last Admin: 06/21/18 22:33 Dose: 1 applic Multivitamins/Minerals/Vitamin C (Tab-A-Vit -) 1 tab PO DAILY [facility] Last Admin: 06/21/18 10:13 Dose: Not Given Pantoprazole Sodium (Protonix -) 40 mg PO DAILY [facility] Last Admin: 06/21/18 10:13 Dose: Not Given Polyethylene Glycol (Miralax (For Bowel Prep) -) 17 gm PO DAILY [facility] Last Admin: 06/21/18 10:13 Dose: Not Given Sodium Chloride ([place] Nasal [place] -) 2 spray NS TID PRN PRN Reason: NASAL CONGESTION Last Admin: 06/19/18 13:41 Dose: 2 spray Zinc Sulfate (Orazinc -) 220 mg PO DAILY [facility] Last Admin: 06/21/18 10:13 Dose: Not Given - Objective Vital Signs: Vital Signs Temperature 98.7 F 06/22/18 05:38 Pulse Rate 81 06/22/18 05:38 Respiratory Rate 22 H 06/22/18 05:38 Blood Pressure 133/51 L 06/22/18 05:38 O2 Sat by Pulse Oximetry (%) 98 06/21/18 21:00 Labs: CBC, BMP 06/21/18 06:00 06/21/18 06:00 INR, PTT INR 1.24 (0.83-1.09) H 06/18/18 06:00 Problem List - Problems (1) Abnormal liver enzymes Assessment/Plan: abdominal MRI report- innumerable hepatic lesions,thoracic and lumbar lesion suscipicious for metastatic disease \ Code(s): R74.8 - ABNORMAL LEVELS OF OTHER SERUM ENZYMES (2) Anemia Assessment/Plan: refusing Code(s): D64.9 - ANEMIA, UNSPECIFIED (3) Bacteremia Assessment/Plan: Microbiology Microbiology 06/12/18 17:22 Decubiti Gram Stain - Final 06/12/18 17:22 Decubiti Wound Culture - Final S Aureus Vr Ec Faecalis Proteus Mirabilis 06/12/18 17:22 Blood - Peripheral Venous Blood Culture - Final Escherichia Coli Esbl Powder And Primer Canning Leader 06/12/18 17:10 Blood - Peripheral Venous Blood Culture - Final Escherichia Coli Esbl Powder And Primer Canning Leader 06/12/18 09:20 Urine - Urine - Catheterized Urine Culture - Final Proteus Mirabilis patient not swallowing doxycycline only on meropenem IV Code(s): R78.81 - BACTEREMIA (4) Sacral decubitus ulcer Assessment/Plan: wound care consult silvadene dvtppx turn and position not swallowing zinc sulfate or vitamin C Code(s): L89.159 - PRESSURE ULCER OF SACRAL REGION, UNSPECIFIED STAGE
[2018-06-22] MEDS ORDERED: METOPROLOL TARTRATE 5 MG/5 ML VIAL IVPB PRN (11:14)
--- NOTE | 2018-06-22 11:19 | PN ---
Progress Note (short form) - Note Progress Note: patient not taking any oral pills-not taking doxycycline po iv clinimix DC remeron megace,,lopresor, and all vitamins swallow eval possible MBS if patient cooperates iv lopresser prn Problem List - Problems (1) Abnormal liver enzymes Code(s): R74.8 - ABNORMAL LEVELS OF OTHER SERUM ENZYMES (2) Anemia Code(s): D64.9 - ANEMIA, UNSPECIFIED (3) Bacteremia Code(s): R78.81 - BACTEREMIA (4) Sacral decubitus ulcer Code(s): L89.159 - PRESSURE ULCER OF SACRAL REGION, UNSPECIFIED STAGE
[2018-06-22] MEDS: ZINC OXIDE 20% TOPICAL OINTMENT 30 GM TUBE TP SCH ×2 (11:51→23:51)
[2018-06-22] MEDS: HEPARIN NA (PORCINE) 5,000 UNITS/ML 1ML VIAL SQ SCH ×2 (11:51→22:04)
[2018-06-22] MEDS: ZINC SULFATE 220 MG CAPSULE (FP) PO SCH (12:18)
[2018-06-22] MEDS: DOXYCYCLINE HYCLATE 100 MG CAPSULE PO SCH ×2 (12:18→17:21)
[2018-06-22] MEDS: ASCORBIC ACID 500 MG TABLET (FP) PO SCH ×2 (12:18→22:04)
[2018-06-22] MEDS: FOLIC ACID 1 MG TABLET (FP) PO SCH (12:18)
[2018-06-22] MEDS: POLYETHYLENE GLYCOL 3350 255 GM BTL PO SCH (12:19)
--- NOTE | 2018-06-22 13:08 | PN ---
Progress Note, UTILITY REPAIRER - Note Progress Note: Coughing, congestion, vocal wetness, pooling of saliva in his mouth. Confused, telling people to "drop ." HCP reports pt is generally oriented and she said he has communicated wanting "everything done including tube feeding." Shje is concerned that "he will if not fed." MBS attempted but not achieved due to lack of cooperation. Pt did not coopprate with HCP with small amounts of nectar on tsp, with poor head support, and no swallow generated. Continue NPO. Discussed with Palliative care. PEG being considered by HCP, per pt's wishes.
[2018-06-22] MEDS: MULTIVITAMINS (DAILY MVI) TABLET (FP) PO SCH (14:00)
[2018-06-22] MEDS: PANTOPRAZOLE 40 MG TABLET (FP) PO SCH (14:00)
[2018-06-22] MEDS: METOPROLOL TARTRATE 25 MG TABLET (FP) PO SCH (14:00)
[2018-06-22] MEDS: MEGESTROL ACETATE 20 MG TABLET PO SCH (14:00)
[2018-06-23] MEDS: MEROPENEM 1 GM in DEXTROSE 5%-WATER 100 ML IVPB SCH ×3 (01:54→17:26)
[2018-06-23] MEDS: AMINO ACIDS 4.25%/D5W 1,000 ML IV SCH ×3 (06:33→22:24)
--- NOTE | 2018-06-23 09:41 | PN ---
Progress Note (short form) - Note Progress Note: Puma Carrion was seen this morning and Nicole his family member and healthcare proxy was present. The patient was pale, lethargic and noncommunicative but it was early in the morning. I reviewed the patient's testing and physician documents. This review included reviewing his lab reports, abdominal MRI, speech therapy reports and nursing and social service reviews. Kassy was spoken to privately in the solarium and I asked her first to give me her assessment of his current medical problems. She did relate details of his past history and seem to focus on antibiotics and the side effects it has caused him over the years. She did tell me that told her yesterday about the probable malignant changes in his liver and bone. I also reviewed his MRI of the abdomen showing these multiple metastatic lesions in his liver and possibly thoracic and lumbar spine. There was also lesions in his pancreas which could be neoplastic. Further review of the initial laboratory work confirmed a CA 19-9 of 14,000 with a normal range up to 35 and a CEA of 770 with a normal range of up to 5. The patient has not been cooperating with taking his medicine and in fact has previously stated that he does not wish blood products. When I discussed with his healthcare proxy the facts of the testing which we have available so far, she still seemed to focus on a biopsy to confirm a diagnosis and his nutrition. I reminded her that if he were to undergo a biopsy and there were complications with bleeding and he could not get blood product they would be further possibly critical consequences. I also explained that even if a biopsy were done, the oncologist might consider his current performance status prohibitive to give any form of cancer treatment. I would further state that with his current medical condition with probable metastatic cancer sacral ulcers, diabetes, CVA, hypertenson, hyperlipidemia and possible metabolic encephalopathy and possibly metastatic lesions to his brain that he is suffering the anorexia cachexia syndrome and a feeding tube even if provided might not be of benefit to him. In any case it might be worthwhile for an oncologist to speak to Kassy and further recommendations and decisions can then be made. I will follow.
--- NOTE | 2018-06-23 10:13 | PN ---
Progress Note (short form) - Note Progress Note: DISCUSSED WITH RICHY THE HCP OF THE PATIENT WHO WOULD LIKE A GTUBE FOR POOR APPETITE AND A LIVER BIOPSY. RISKS AND BENEFITS DISCUSSED AND I TOLD HER THAT THE RISK IS TO HIGH AND SHE STILL WANTS TO CONTINUE WITH FULL MEASURES. PATIENT FOLLOWS NABOR RADFORD AND REFUSING PRBC TRANSFUSIONS D/W HCP. ETHICS COMITTE CALLED TO DISCUSS THIS SITUATION WITH RICHY THE HCP AND ALSO TO DISCUSS ADVANCED DIRECTIVES FOR FURTHER TREATMENT AND PLAN. A/P SACRAL STAGE 4 ULCER LIVER LESIONS WITH BONE METASTISIS WITH ELEVATED CEA AND CA-19 POOR APPETITE /FAILURE TO THRIVE/DYSPHAGIA PLAN LIVER BIOPSY ORDERED WITH IDez DAMIAN FOR GTUBE IRON IV WOUND CARE ABX PER ID POOR OVERALL PROGNOSIS, HCP RICHY IS AWARE HOWEVER SHE WOULD LIKE EVERYTHING DONE AND ALL OPTIONS TO POSSIBLY HELP MR. GROSS. 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 (3) Abnormal liver enzymes Code(s): R74.8 - ABNORMAL LEVELS OF OTHER SERUM ENZYMES (4) Sacral decubitus ulcer, stage IV Code(s): L89.154 - PRESSURE ULCER OF SACRAL REGION, STAGE 4 (5) Sepsis Code(s): A41.9 - SEPSIS, UNSPECIFIED ORGANISM Qualifiers: Sepsis type: sepsis due to unspecified organism Qualified Code(s): A41.9 - Sepsis, unspecified organism (6) Anemia Code(s): D64.9 - ANEMIA, UNSPECIFIED (7) Bacteremia Code(s): R78.81 - BACTEREMIA (8) Fever Code(s): R50.9 - FEVER, UNSPECIFIED Qualifiers: Fever type: unspecified Qualified Code(s): R50.9 - Fever, unspecified (9) Basilic vein thrombosis Code(s): I82.619 - ACUTE EMBOLISM AND THROMBOSIS OF SUPERFIC VN UNSP UP EXTREM
[2018-06-23 10:34] LABS: HEMOGLOBIN 7.1 GM/dL (11.7-16.9); MCH 25.5 pg (25.7-33.7); MCHC 31.1 g/dl (32.0-35.9); MEAN CELL VOLUME 81.9 fl (80-96); MEAN PLT VOLUME 8.6 fl (7.5-11.1); PLATELET COUNT 133 K/MM3 (134-434); RBC 2.81 M/mm3 (4.00-5.60); RDW 20.2 % (11.9-15.9); WHITE BLOOD COUNT 15.8 K/mm3 (4.0-10.0)
[2018-06-23] MEDS: HEPARIN NA (PORCINE) 5,000 UNITS/ML 1ML VIAL SQ SCH ×2 (11:10→21:55)
[2018-06-23] MEDS: ASCORBIC ACID 500 MG TABLET (FP) PO SCH ×2 (11:11→21:59)
[2018-06-23] MEDS: DOXYCYCLINE HYCLATE 100 MG CAPSULE PO SCH ×2 (11:11→17:26)
[2018-06-23] MEDS: FOLIC ACID 1 MG TABLET (FP) PO SCH (11:11)
[2018-06-23] MEDS: POLYETHYLENE GLYCOL 3350 255 GM BTL PO SCH (11:11)
[2018-06-23] MEDS: ZINC SULFATE 220 MG CAPSULE (FP) PO SCH (11:11)
[2018-06-23] MEDS: ZINC OXIDE 20% TOPICAL OINTMENT 30 GM TUBE TP SCH ×2 (11:12→21:59)
[2018-06-23 11:34] LABS: ALBUMIN 1.4 g/dl (3.4-5.0); ALK PHOS 418 U/L (45-117); ANION GAP 16 MMOL/L (8-16); BILIRUBIN,TOTAL 0.8 mg/dL (0.2-1); BLOOD UREA NITROGEN 80 mg/dL (7-18); CALCIUM 7.9 mg/dL (8.5-10.1); CHLORIDE 100 mmol/L (98-107); CO2 15 mmol/L (21-32); CREATININE 1.1 mg/dL (0.55-1.3); GLUCOSE,RANDOM 162 mg/dL (74-106); POTASSIUM 3.3 mmol/L (3.5-5.1); SGOT/AST 51 U/L (15-37); SGPT/ALT 15 U/L (13-61); SODIUM 131 mmol/L (136-145); TOT PROT 5.4 g/dl (6.4-8.2)
[2018-06-23 12:12] LABS: INR 1.26 (0.83-1.09); PROTHROMBIN TIME (PATIENT) 14.9 SEC (9.7-13.0)
--- NOTE | 2018-06-23 12:25 | PN ---
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 and biopsy patient continues to be lethargic and barely resposive failure to thrive - Current Medication List Current Medications: Active Medications Acetaminophen (Tylenol -) 975 mg PO Q8H PRN PRN Reason: PAIN OR FEVER Ascorbic Acid (Vitamin C -) 500 mg PO BID [facility] Last Admin: 06/23/18 11:11 Dose: Not Given Doxycycline Hyclate (Vibramycin -) 100 mg PO BID@1000,1800 [facility] Last Admin: 06/23/18 11:11 Dose: Not Given Folic Acid (Folic Acid -) 1 mg PO DAILY [facility] Last Admin: 06/23/18 11:11 Dose: Not Given Heparin Sodium (Porcine) (Heparin -) 5,000 unit SQ BID [facility] Last Admin: 06/23/18 11:10 Dose: 5,000 unit IV Flush (Picc Line Flush) 8 ml IVPUSH PRN PRN PRN Reason: Protocol Meropenem 1 gm/ Dextrose 100 mls @ 200 mls/hr IVPB Q8H-IV [facility] Last Admin: 06/23/18 11:10 Dose: 200 mls/hr Amino Acids (Clinimix -) 1,000 mls @ 84 mls/hr IV Q12H [facility] Last Admin: 06/23/18 11:32 Dose: Not Given Metoprolol Tartrate (Lopressor Injection -) 5 mg IVPB Q4H PRN PRN Reason: HYPERTENSION Multi-Ingredient Ointment (Zinc Oxide) 1 applic TP BID [facility] Last Admin: 06/23/18 11:12 Dose: 1 applic Polyethylene Glycol (Miralax (For Bowel Prep) -) 17 gm PO DAILY [facility] Last Admin: 06/23/18 11:11 Dose: Not Given Sodium Chloride ([place] Nasal [place] -) 2 spray NS TID PRN PRN Reason: NASAL CONGESTION Last Admin: 06/19/18 13:41 Dose: 2 spray Zinc Sulfate (Orazinc -) 220 mg PO DAILY [facility] Last Admin: 06/23/18 11:11 Dose: Not Given - Objective Vital Signs: Vital Signs Temperature 98.5 F 06/23/18 10:00 Pulse Rate 99 H 06/23/18 10:00 Respiratory Rate 20 06/23/18 10:00 Blood Pressure 143/75 06/23/18 10:00 O2 Sat by Pulse Oximetry (%) 98 06/22/18 21:00 Constitutional: Yes: Other (failure to thrive) Cardiovascular: Yes: Regular Rate and Rhythm Respiratory: Yes: Regular, On Nasal O2 Gastrointestinal: Yes: Normal Bowel Sounds, Soft Musculoskeletal: Yes: Other Extremities: Yes: Other (contracted) Wound/Incision: Yes: Other (sacral ulcer) Neurological: Yes: Lethargy Labs: CBC, BMP 06/23/18 10:15 06/23/18 10:15 INR, PTT INR 1.26 (0.83-1.09) H 06/23/18 10:15 - ....Imaging Ultrasound: Report Reviewed, Image Reviewed Assessment/Plan patient with multiple medical problems coming in with sepsis uti and bacteremia with elevated liver enzymes and fever nimisha gm negative bacteremia wound infection dm sepsis uti 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 (3) Abnormal liver enzymes Code(s): R74.8 - ABNORMAL LEVELS OF OTHER SERUM ENZYMES (4) Sacral decubitus ulcer, stage IV Code(s): L89.154 - PRESSURE ULCER OF SACRAL REGION, STAGE 4 (5) Sepsis Code(s): A41.9 - SEPSIS, UNSPECIFIED ORGANISM Qualifiers: Sepsis type: sepsis due to unspecified organism Qualified Code(s): A41.9 - Sepsis, unspecified organism (6) Anemia Code(s): D64.9 - ANEMIA, UNSPECIFIED (7) Bacteremia Code(s): R78.81 - BACTEREMIA (8) Fever Code(s): R50.9 - FEVER, UNSPECIFIED Qualifiers: Fever type: unspecified Qualified Code(s): R50.9 - Fever, unspecified (9) Basilic vein thrombosis Code(s): I82.619 - ACUTE EMBOLISM AND THROMBOSIS OF SUPERFIC VN UNSP UP EXTREM patient wound dressing changed wound with foul smelling discharge plan continue current mgmt wound care resp support nutrition continue abx
[2018-06-23] MEDS ORDERED: KCL 10 MEQ IVPB 10 MEQ/100 ML INFUS.BAG IVPB ONE (14:15)
--- NOTE | 2018-06-23 15:12 | PN ---
Progress Note, LIEUTENANT COLONEL - Note Progress Note: Selected Entries 06/23/18 06/23/18 06/23/18 05:45 10:00 15:01 Lunch NPO Temperature 98.4 F 98.5 F Laboratory Tests 06/23/18 10:15 WBC 15.8 H Medical and staff notes reviewed. Pt awake, c/o feeling "terrible" "in pain all over." Pt refused PO trials. Confused, frequent obscenities produced. HCP said she would agree to pain mgmt but "not Morphine." Nursing made aware.
--- NOTE | 2018-06-23 18:09 | PN ---
Progress Note (short form) - Note Progress Note: Patient seen and examined Discussed with health care proxy once again CEA-->707 CA-19.9---> 14,400 These values are virtually diagnostic of malignancy. I explained this to HCP. I suggested doing a liver biopsy could be dangerous with risk of bleeding and infection. I suggested that I would not treat this patient with any chemotherapy even if biopsy confirmed a diagnosis of malignancy. I told HCP that I thought it was wrong to do this liver biopsy.
--- NOTE | 2018-06-23 19:58 | CONS ---
GASTROINTESTINAL CONSULTATION DATE OF CONSULTATION: DATE OF DICTATION: 06/23/2018 The patient is a 72-year-old man with a past medical history of parkinson's, CVA , right-sided residual weakness, hyperlipidemia, hypertension, diabetes, osteomyelitis, anemia, COPD, CAD, who was admitted to the hospital with loss of appetite and altered mental status. During the course, he was noted to have a CEA greater than 700, CA 19 of 14,000 suspicious for malignancy. In addition, he had speech and swallow evaluation which revealed potential aspiration. Modified barium swallow results also reveal compromise. The patient does not respond to questions. The healthcare proxy is at the bedside and is concerned about his nutritional status and placement of a percutaneous gastrostomy tube. PAST MEDICAL AND SURGICAL HISTORY: As listed in the HPI, with the addition of chronic atrial fibrillation, overactive bladder, sepsis, osteomyelitis. Past surgical history: ICD, appendectomy. SOCIAL HISTORY: Does not smoke, drink, or use drugs. ALLERGIES: LEVOFLOXACIN, PENICILLIN, and VANCOMYCIN. HOME MEDICATIONS: Reviewed and include Tylenol, vitamin C, ferrous sulfate, metoprolol, multivitamin, pantoprazole, polyethylene glycol, and zinc oxide. PHYSICAL EXAMINATION: Vital Signs: Temperature 98, pulse 86, blood pressure 130/68, pulse oximetry 98 % on room air, respiratory rate 16. General: No acute distress, does not respond to questions. HEENT: Anicteric sclerae. Cardiovascular: S1, S2. Regular rate and rhythm. Lungs: Clear to auscultation anteriorly. Abdomen: Soft and nontender without any surgical scars. Extremities: No edema. LABORATORY DATA: White blood cell count 15.8, hemoglobin 7 and hematocrit 23, MCV 81, platelet count 133. INR 1.2. Sodium 131, potassium 3.3, BUN 80 and creatinine 1, glucose 162. AST 51, ALT 15, alkaline phosphatase 418. Urine: Protein 2+, leukocyte esterase positive. Stool for occult blood is positive. IMPRESSION: Dysphagia secondary to his multiple comorbidities, particularly his cerebrovascular accident in the past, currently on antibiotics for treatment of sepsis and chronic sacral ulcer. Also, with potential malignancy. I discussed the risks and benefit of placing a percutaneous gastrostomy tube in this patient with the healthcare proxy at the bedside. I explained in detail will not decrease this patient's morbidity and mortality, and the risks of an invasive procedure are high considering his underlying comorbidities. These risks were explained and include the following, but not limited to, perforation, infection, bleeding, sedation. She would like some time to think the process over. In the interim, I would recommend NG tube for feeds for nutrition and a palliative care evaluation to address the goals of care involving this patient who likely has underlying malignancy as well as sepsis. The GI service will follow this patient. DO LOPEZ NORTON/[id number] MTDD
[2018-06-24] MEDS: MEROPENEM 1 GM in DEXTROSE 5%-WATER 100 ML IVPB SCH ×3 (01:09→17:56)
[2018-06-24] MEDS: AMINO ACIDS 4.25%/D5W 1,000 ML IV SCH ×3 (02:23→23:57)
[2018-06-24] MEDS: FOLIC ACID 1 MG TABLET (FP) PO SCH (09:27)
[2018-06-24] MEDS: ZINC SULFATE 220 MG CAPSULE (FP) PO SCH (09:27)
[2018-06-24] MEDS: HEPARIN NA (PORCINE) 5,000 UNITS/ML 1ML VIAL SQ SCH (09:27)
[2018-06-24] MEDS: POLYETHYLENE GLYCOL 3350 255 GM BTL PO SCH (09:27)
[2018-06-24] MEDS: DOXYCYCLINE HYCLATE 100 MG CAPSULE PO SCH ×2 (09:28→17:56)
[2018-06-24] MEDS: ASCORBIC ACID 500 MG TABLET (FP) PO SCH ×2 (09:28→21:50)
[2018-06-24] MEDS: ZINC OXIDE 20% TOPICAL OINTMENT 30 GM TUBE TP SCH ×2 (09:28→21:50)
--- NOTE | 2018-06-24 13:48 | PN ---
Progress Note, Physician History of Present Illness: patients continues to do poorly awaiting for final plan - Current Medication List Current Medications: Active Medications Acetaminophen (Tylenol -) 975 mg PO Q8H PRN PRN Reason: PAIN OR FEVER Ascorbic Acid (Vitamin C -) 500 mg PO BID [facility] Last Admin: 06/24/18 09:28 Dose: Not Given Doxycycline Hyclate (Vibramycin -) 100 mg PO BID@1000,1800 [facility] Last Admin: 06/24/18 09:28 Dose: Not Given Folic Acid (Folic Acid -) 1 mg PO DAILY [facility] Last Admin: 06/24/18 09:27 Dose: Not Given Heparin Sodium (Porcine) (Heparin -) 5,000 unit SQ BID [facility] Last Admin: 06/24/18 09:27 Dose: 5,000 unit IV Flush (Picc Line Flush) 8 ml IVPUSH PRN PRN PRN Reason: Protocol Meropenem 1 gm/ Dextrose 100 mls @ 200 mls/hr IVPB Q8H-IV [facility] Last Admin: 06/24/18 09:27 Dose: 200 mls/hr Amino Acids (Clinimix -) 1,000 mls @ 84 mls/hr IV Q12H [facility] Last Admin: 06/24/18 02:23 Dose: Not Given Metoprolol Tartrate (Lopressor Injection -) 5 mg IVPB Q4H PRN PRN Reason: HYPERTENSION Multi-Ingredient Ointment (Zinc Oxide) 1 applic TP BID [facility] Last Admin: 06/24/18 09:28 Dose: 1 applic Polyethylene Glycol (Miralax (For Bowel Prep) -) 17 gm PO DAILY [facility] Last Admin: 06/24/18 09:27 Dose: Not Given Sodium Chloride ([place] Nasal [place] -) 2 spray NS TID PRN PRN Reason: NASAL CONGESTION Last Admin: 06/19/18 13:41 Dose: 2 spray Zinc Sulfate (Orazinc -) 220 mg PO DAILY [facility] Last Admin: 06/24/18 09:27 Dose: Not Given - Objective Vital Signs: Vital Signs Temperature 97.0 F L 06/24/18 09:58 Pulse Rate 78 06/24/18 09:58 Respiratory Rate 18 06/24/18 09:58 Blood Pressure 127/57 L 06/24/18 09:58 O2 Sat by Pulse Oximetry (%) 95 06/23/18 21:00 Constitutional: Yes: No Distress, Other (failure to thrive) Cardiovascular: Yes: Regular Rate and Rhythm Respiratory: Yes: Regular, On Nasal O2 Extremities: Yes: Other (contracted) Wound/Incision: Yes: Other (sacral ulcer) Neurological: Yes: Lethargy Labs: CBC, BMP 06/23/18 10:15 06/23/18 10:15 INR, PTT INR 1.26 (0.83-1.09) H 06/23/18 10:15 Assessment/Plan patient with multiple medical problems coming in with sepsis uti and bacteremia with elevated liver enzymes and fever nimisha gm negative bacteremia wound infection dm sepsis uti 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 (3) Abnormal liver enzymes Code(s): R74.8 - ABNORMAL LEVELS OF OTHER SERUM ENZYMES (4) Sacral decubitus ulcer, stage IV Code(s): L89.154 - PRESSURE ULCER OF SACRAL REGION, STAGE 4 (5) Sepsis Code(s): A41.9 - SEPSIS, UNSPECIFIED ORGANISM Qualifiers: Sepsis type: sepsis due to unspecified organism Qualified Code(s): A41.9 - Sepsis, unspecified organism (6) Anemia Code(s): D64.9 - ANEMIA, UNSPECIFIED (7) Bacteremia Code(s): R78.81 - BACTEREMIA (8) Fever Code(s): R50.9 - FEVER, UNSPECIFIED Qualifiers: Fever type: unspecified Qualified Code(s): R50.9 - Fever, unspecified (9) Basilic vein thrombosis Code(s): I82.619 - ACUTE EMBOLISM AND THROMBOSIS OF SUPERFIC VN UNSP UP EXTREM plan continue current mgmt wound care resp support nutrition continue abx
--- NOTE | 2018-06-24 16:12 | PN ---
Progress Note, INVESTIGATIVE AGENT - Note Progress Note: Asked by palliaive care to follow up. Eyes closed but verbally responsive, confused. Refused po trials for me. HCP put soda thickened in his mouth (that I had mixed) , with pt again saying NO MORE. Pt sounds congested and is coughing without po trials. Plan for end of life being addressed by Palliative care and medical safe.
--- NOTE | 2018-06-24 17:41 | PN ---
Progress Note, Physician Chief Complaint: liver metastasis - Current Medication List Current Medications: Active Medications Acetaminophen (Tylenol -) 975 mg PO Q8H PRN PRN Reason: PAIN OR FEVER Ascorbic Acid (Vitamin C -) 500 mg PO BID [facility] Last Admin: 06/24/18 09:28 Dose: Not Given Doxycycline Hyclate (Vibramycin -) 100 mg PO BID@1000,1800 [facility] Last Admin: 06/24/18 09:28 Dose: Not Given Folic Acid (Folic Acid -) 1 mg PO DAILY [facility] Last Admin: 06/24/18 09:27 Dose: Not Given IV Flush (Picc Line Flush) 8 ml IVPUSH PRN PRN PRN Reason: Protocol Meropenem 1 gm/ Dextrose 100 mls @ 200 mls/hr IVPB Q8H-IV [facility] Last Admin: 06/24/18 09:27 Dose: 200 mls/hr Amino Acids (Clinimix -) 1,000 mls @ 84 mls/hr IV Q12H [facility] Last Admin: 06/24/18 16:42 Dose: 84 mls/hr Metoprolol Tartrate (Lopressor Injection -) 5 mg IVPB Q4H PRN PRN Reason: HYPERTENSION Multi-Ingredient Ointment (Zinc Oxide) 1 applic TP BID [facility] Last Admin: 06/24/18 09:28 Dose: 1 applic Polyethylene Glycol (Miralax (For Bowel Prep) -) 17 gm PO DAILY [facility] Last Admin: 06/24/18 09:27 Dose: Not Given Sodium Chloride ([place] Nasal [place] -) 2 spray NS TID PRN PRN Reason: NASAL CONGESTION Last Admin: 06/19/18 13:41 Dose: 2 spray Zinc Sulfate (Orazinc -) 220 mg PO DAILY [facility] Last Admin: 06/24/18 09:27 Dose: Not Given - Objective Vital Signs: Vital Signs Temperature 97 F L 06/24/18 15:00 Pulse Rate 85 06/24/18 15:00 Respiratory Rate 20 06/24/18 15:00 Blood Pressure 149/62 06/24/18 15:00 O2 Sat by Pulse Oximetry (%) 95 06/24/18 09:00 Constitutional: Yes: No Distress, Calm, Thin Cardiovascular: Yes: Regular Rate and Rhythm Respiratory: Yes: On Nasal O2, Rhonchi (diffuse) Gastrointestinal: Yes: Normal Bowel Sounds, Soft Musculoskeletal: Yes: Muscle Weakness Neurological: Yes: Alert, Confusion, Lethargy Labs: CBC, BMP 06/23/18 10:15 06/23/18 10:15 INR, PTT INR 1.26 (0.83-1.09) H 06/23/18 10:15 Problem List - Problems (1) Sacral decubitus ulcer Assessment/Plan: wc: Microbiology 06/14/18 06:40 Blood - Peripheral Venous Blood Culture - Final NO GROWTH AFTER 5 DAYS INCUBATION 06/14/18 07:00 Blood - Peripheral Venous Blood Culture - Final NO GROWTH AFTER 5 DAYS INCUBATION 06/12/18 17:22 Decubiti Gram Stain - Final 06/12/18 17:22 Decubiti Wound Culture - Final Mr S Aureus Vr Ec Faecalis Proteus Mirabilis 06/12/18 17:22 Blood - Peripheral Venous Blood Culture - Final Escherichia Coli Esbl Volunteer Services Director 06/12/18 17:10 Blood - Peripheral Venous Blood Culture - Final Escherichia Coli Esbl Volunteer Services Director 06/12/18 09:20 Urine - Urine - Catheterized Urine Culture - Final Proteus Mirabilis -IV abx -ID on board -afebrile Code(s): L89.159 - PRESSURE ULCER OF SACRAL REGION, UNSPECIFIED STAGE (2) Anemia Assessment/Plan: -h/h stable -Guaiac positive -Seen by hematology/oncology Code(s): D64.9 - ANEMIA, UNSPECIFIED (3) Metabolic encephalopathy Code(s): G93.41 - METABOLIC ENCEPHALOPATHY (4) UTI (urinary tract infection) Code(s): N39.0 - URINARY TRACT INFECTION, SITE NOT SPECIFIED
[2018-06-25] MEDS: MEROPENEM 1 GM in DEXTROSE 5%-WATER 100 ML IVPB SCH ×3 (01:18→18:03)
--- NOTE | 2018-06-25 08:42 | PN ---
Progress Note, Physician - Current Medication List Current Medications: Active Medications Acetaminophen (Tylenol -) 975 mg PO Q8H PRN PRN Reason: PAIN OR FEVER Ascorbic Acid (Vitamin C -) 500 mg PO BID [facility] Last Admin: 06/24/18 21:50 Dose: Not Given Doxycycline Hyclate (Vibramycin -) 100 mg PO BID@1000,1800 [facility] Last Admin: 06/24/18 17:56 Dose: Not Given Folic Acid (Folic Acid -) 1 mg PO DAILY [facility] Last Admin: 06/24/18 09:27 Dose: Not Given IV Flush (Picc Line Flush) 8 ml IVPUSH PRN PRN PRN Reason: Protocol Meropenem 1 gm/ Dextrose 100 mls @ 200 mls/hr IVPB Q8H-IV [facility] Last Admin: 06/25/18 01:18 Dose: 200 mls/hr Amino Acids (Clinimix -) 1,000 mls @ 84 mls/hr IV Q12H [facility] Last Admin: 06/24/18 23:57 Dose: 84 mls/hr Metoprolol Tartrate (Lopressor Injection -) 5 mg IVPB Q4H PRN PRN Reason: HYPERTENSION Multi-Ingredient Ointment (Zinc Oxide) 1 applic TP BID [facility] Last Admin: 06/24/18 21:50 Dose: 1 applic Polyethylene Glycol (Miralax (For Bowel Prep) -) 17 gm PO DAILY [facility] Last Admin: 06/24/18 09:27 Dose: Not Given Sodium Chloride ([place] Nasal [place] -) 2 spray NS TID PRN PRN Reason: NASAL CONGESTION Last Admin: 06/19/18 13:41 Dose: 2 spray Zinc Sulfate (Orazinc -) 220 mg PO DAILY [facility] Last Admin: 06/24/18 09:27 Dose: Not Given - Objective Vital Signs: Vital Signs Temperature 97.9 F 06/25/18 05:58 Pulse Rate 87 06/25/18 05:58 Respiratory Rate 20 06/25/18 05:58 Blood Pressure 148/73 06/25/18 05:58 O2 Sat by Pulse Oximetry (%) 96 06/24/18 21:00 Labs: INR, PTT INR 1.26 (0.83-1.09) H 06/23/18 10:15 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 (3) Abnormal liver enzymes Code(s): R74.8 - ABNORMAL LEVELS OF OTHER SERUM ENZYMES (4) Sacral decubitus ulcer, stage IV Code(s): L89.154 - PRESSURE ULCER OF SACRAL REGION, STAGE 4 (5) Sepsis Code(s): A41.9 - SEPSIS, UNSPECIFIED ORGANISM Qualifiers: Sepsis type: sepsis due to unspecified organism Qualified Code(s): A41.9 - Sepsis, unspecified organism (6) Anemia Code(s): D64.9 - ANEMIA, UNSPECIFIED (7) Bacteremia Code(s): R78.81 - BACTEREMIA (8) Fever Code(s): R50.9 - FEVER, UNSPECIFIED Qualifiers: Fever type: unspecified Qualified Code(s): R50.9 - Fever, unspecified (9) Basilic vein thrombosis Code(s): I82.619 - ACUTE EMBOLISM AND THROMBOSIS OF SUPERFIC VN UNSP UP EXTREM
[2018-06-25 08:51] LABS: BASO % 0.7 % (0-2.0); EOS % 1.2 % (0-4.5); HEMOGLOBIN 7.5 GM/dL (11.7-16.9); LYMPH % 14.2 % (8-40); MCH 25.9 pg (25.7-33.7); MCHC 31.3 g/dl (32.0-35.9); MEAN CELL VOLUME 82.7 fl (80-96); MEAN PLT VOLUME 9.1 fl (7.5-11.1); MONO % 6.1 % (3.8-10.2); NEUT % 77.8 % (42.8-82.8); PLATELET COUNT 112 K/MM3 (134-434); RDW 21.4 % (11.9-15.9); WHITE BLOOD COUNT 13.1 K/mm3 (4.0-10.0)
[2018-06-25 09:03] LABS: ALBUMIN 1.4 g/dl (3.4-5.0); ALK PHOS 345 U/L (45-117); ANION GAP 11 MMOL/L (8-16); BILIRUBIN,TOTAL 0.9 mg/dL (0.2-1); BLOOD UREA NITROGEN 79 mg/dL (7-18); CALCIUM 8.4 mg/dL (8.5-10.1); CHLORIDE 101 mmol/L (98-107); CO2 16 mmol/L (21-32); GLUCOSE,RANDOM 159 mg/dL (74-106); POTASSIUM 3.1 mmol/L (3.5-5.1); SGOT/AST 54 U/L (15-37); SGPT/ALT 13 U/L (13-61); SODIUM 128 mmol/L (136-145); TOT PROT 5.7 g/dl (6.4-8.2)
--- NOTE | 2018-06-25 09:31 | PN ---
Progress Note, Physician History of Present Illness: continues to be weak - Current Medication List Current Medications: Active Medications Acetaminophen (Tylenol -) 975 mg PO Q8H PRN PRN Reason: PAIN OR FEVER Ascorbic Acid (Vitamin C -) 500 mg PO BID [facility] Last Admin: 06/24/18 21:50 Dose: Not Given Doxycycline Hyclate (Vibramycin -) 100 mg PO BID@1000,1800 [facility] Last Admin: 06/24/18 17:56 Dose: Not Given Folic Acid (Folic Acid -) 1 mg PO DAILY [facility] Last Admin: 06/24/18 09:27 Dose: Not Given IV Flush (Picc Line Flush) 8 ml IVPUSH PRN PRN PRN Reason: Protocol Meropenem 1 gm/ Dextrose 100 mls @ 200 mls/hr IVPB Q8H-IV [facility] Last Admin: 06/25/18 01:18 Dose: 200 mls/hr Amino Acids (Clinimix -) 1,000 mls @ 84 mls/hr IV Q12H [facility] Last Admin: 06/24/18 23:57 Dose: 84 mls/hr Metoprolol Tartrate (Lopressor Injection -) 5 mg IVPB Q4H PRN PRN Reason: HYPERTENSION Multi-Ingredient Ointment (Zinc Oxide) 1 applic TP BID [facility] Last Admin: 06/24/18 21:50 Dose: 1 applic Polyethylene Glycol (Miralax (For Bowel Prep) -) 17 gm PO DAILY [facility] Last Admin: 06/24/18 09:27 Dose: Not Given Sodium Chloride ([place] Nasal [place] -) 2 spray NS TID PRN PRN Reason: NASAL CONGESTION Last Admin: 06/19/18 13:41 Dose: 2 spray Zinc Sulfate (Orazinc -) 220 mg PO DAILY [facility] Last Admin: 06/24/18 09:27 Dose: Not Given - Objective Vital Signs: Vital Signs Temperature 97.9 F 06/25/18 05:58 Pulse Rate 87 06/25/18 05:58 Respiratory Rate 20 06/25/18 05:58 Blood Pressure 148/73 06/25/18 05:58 O2 Sat by Pulse Oximetry (%) 96 06/24/18 21:00 Constitutional: Yes: Other (weak) Cardiovascular: Yes: Regular Rate and Rhythm Respiratory: Yes: Regular, CTA Bilaterally Gastrointestinal: Yes: Normal Bowel Sounds, Soft Musculoskeletal: Yes: Other Extremities: Yes: Other Wound/Incision: Yes: Dressing Dry and Intact Neurological: Yes: Alert, Weakness, Other (bed bound) Labs: CBC, BMP 06/25/18 07:50 06/25/18 07:30 INR, PTT INR 1.26 (0.83-1.09) H 06/23/18 10:15 Assessment/Plan patient with multiple medical problems coming in with sepsis uti and bacteremia with elevated liver enzymes and fever nimisha gm negative bacteremia wound infection dm sepsis uti 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 (3) Abnormal liver enzymes Code(s): R74.8 - ABNORMAL LEVELS OF OTHER SERUM ENZYMES (4) Sacral decubitus ulcer, stage IV Code(s): L89.154 - PRESSURE ULCER OF SACRAL REGION, STAGE 4 (5) Sepsis Code(s): A41.9 - SEPSIS, UNSPECIFIED ORGANISM Qualifiers: Sepsis type: sepsis due to unspecified organism Qualified Code(s): A41.9 - Sepsis, unspecified organism (6) Anemia Code(s): D64.9 - ANEMIA, UNSPECIFIED (7) Bacteremia Code(s): R78.81 - BACTEREMIA (8) Fever Code(s): R50.9 - FEVER, UNSPECIFIED Qualifiers: Fever type: unspecified Qualified Code(s): R50.9 - Fever, unspecified (9) Basilic vein thrombosis Code(s): I82.619 - ACUTE EMBOLISM AND THROMBOSIS OF SUPERFIC VN UNSP UP EXTREM growing esbl wound cx and sensitivities note plan continue current mgmt continue abx iv 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
[2018-06-25] MEDS: FOLIC ACID 1 MG TABLET (FP) PO SCH (10:48)
[2018-06-25] MEDS: POLYETHYLENE GLYCOL 3350 255 GM BTL PO SCH (10:48)
[2018-06-25] MEDS: ZINC SULFATE 220 MG CAPSULE (FP) PO SCH (10:54)
[2018-06-25] MEDS: DOXYCYCLINE HYCLATE 100 MG CAPSULE PO SCH ×2 (10:55→18:06)
[2018-06-25] MEDS: ASCORBIC ACID 500 MG TABLET (FP) PO SCH ×2 (10:57→21:15)
[2018-06-25] MEDS: ZINC OXIDE 20% TOPICAL OINTMENT 30 GM TUBE TP SCH ×2 (10:57→21:14)
[2018-06-25] MEDS ORDERED: PT OWN MED DRAWER 7, Y5N ONE ×2 (11:15→17:17)
[2018-06-25 12:33] LABS: ANISOCYTOSIS 2+; MACROCYTOSIS 1+
[2018-06-25] MEDS: AMINO ACIDS 4.25%/D5W 1,000 ML IV SCH (13:58)
[2018-06-26] MEDS: MEROPENEM 1 GM in DEXTROSE 5%-WATER 100 ML IVPB SCH ×3 (01:16→18:14)
[2018-06-26] MEDS: AMINO ACIDS 4.25%/D5W 1,000 ML IV SCH ×2 (01:50→17:00)
--- NOTE | 2018-06-26 07:09 | PN ---
Progress Note (short form) - Note Progress Note: PATIENTS HCP RICHY WOULD LIKE THE GTUBE PLACED ALSO WOULD WANT A LIVER TRANSPLANT. I.R. DEPARTMENT WILL ATTEMPT THURSDAY AND PATIENT WILL THEN DO HOME HOSPICE PER RICHY. CONTINUE ALL MEDICAL SUPPORT AND ALL MEDICAL INTERVENTIONS PER HCP HOWEVER RICHY HAS DECLINED ANY BLOOD PRODUCT TRANSFUSIONS RESCINDED THE DNR/DNI, PATIENT IS A FULL CODE WITH ALL POSSIBLE SUPPORT NEEDED FOR RESUCITATION. 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 (3) Abnormal liver enzymes Code(s): R74.8 - ABNORMAL LEVELS OF OTHER SERUM ENZYMES (4) Sacral decubitus ulcer, stage IV Code(s): L89.154 - PRESSURE ULCER OF SACRAL REGION, STAGE 4 (5) Sepsis Code(s): A41.9 - SEPSIS, UNSPECIFIED ORGANISM Qualifiers: Sepsis type: sepsis due to unspecified organism Qualified Code(s): A41.9 - Sepsis, unspecified organism (6) Anemia Code(s): D64.9 - ANEMIA, UNSPECIFIED (7) Bacteremia Code(s): R78.81 - BACTEREMIA (8) Fever Code(s): R50.9 - FEVER, UNSPECIFIED Qualifiers: Fever type: unspecified Qualified Code(s): R50.9 - Fever, unspecified (9) Basilic vein thrombosis Code(s): I82.619 - ACUTE EMBOLISM AND THROMBOSIS OF SUPERFIC VN UNSP UP EXTREM
[2018-06-26] MEDS: FOLIC ACID 1 MG TABLET (FP) PO SCH (11:09)
[2018-06-26] MEDS: ZINC SULFATE 220 MG CAPSULE (FP) PO SCH (11:10)
[2018-06-26] MEDS: POLYETHYLENE GLYCOL 3350 255 GM BTL PO SCH (11:10)
[2018-06-26] MEDS: ASCORBIC ACID 500 MG TABLET (FP) PO SCH ×2 (11:10→22:06)
[2018-06-26] MEDS: ZINC OXIDE 20% TOPICAL OINTMENT 30 GM TUBE TP SCH ×2 (11:10→22:05)
[2018-06-26] MEDS: DOXYCYCLINE HYCLATE 100 MG CAPSULE PO SCH ×2 (11:10→18:18)
--- NOTE | 2018-06-26 13:38 | PN ---
Progress Note, Physician History of Present Illness: continues to be weak no new issues plan for prg tube tomorrow - Current Medication List Current Medications: Active Medications Acetaminophen (Tylenol -) 975 mg PO Q8H PRN PRN Reason: PAIN OR FEVER Ascorbic Acid (Vitamin C -) 500 mg PO BID [facility] Last Admin: 06/26/18 11:10 Dose: Not Given Doxycycline Hyclate (Vibramycin -) 100 mg PO BID@1000,1800 [facility] Last Admin: 06/26/18 11:10 Dose: Not Given Folic Acid (Folic Acid -) 1 mg PO DAILY [facility] Last Admin: 06/26/18 11:09 Dose: Not Given IV Flush (Picc Line Flush) 8 ml IVPUSH PRN PRN PRN Reason: Protocol Meropenem 1 gm/ Dextrose 100 mls @ 200 mls/hr IVPB Q8H-IV [facility] Last Admin: 06/26/18 11:09 Dose: 200 mls/hr Metoprolol Tartrate (Lopressor Injection -) 5 mg IVPB Q4H PRN PRN Reason: HYPERTENSION Multi-Ingredient Ointment (Zinc Oxide) 1 applic TP BID [facility] Last Admin: 06/26/18 11:10 Dose: 1 applic Polyethylene Glycol (Miralax (For Bowel Prep) -) 17 gm PO DAILY [facility] Last Admin: 06/26/18 11:10 Dose: Not Given Sodium Chloride ([place] Nasal [place] -) 2 spray NS TID PRN PRN Reason: NASAL CONGESTION Last Admin: 06/19/18 13:41 Dose: 2 spray Zinc Sulfate (Orazinc -) 220 mg PO DAILY [facility] Last Admin: 06/26/18 11:10 Dose: Not Given - Objective Vital Signs: Vital Signs Temperature 98.3 F 06/26/18 10:00 Pulse Rate 78 06/26/18 10:00 Respiratory Rate 18 06/26/18 10:00 Blood Pressure 109/56 L 06/26/18 10:00 O2 Sat by Pulse Oximetry (%) 96 06/26/18 09:00 Constitutional: Yes: No Distress, Calm Cardiovascular: Yes: S1, S2 Respiratory: Yes: Regular, CTA Bilaterally Gastrointestinal: Yes: Normal Bowel Sounds, Soft Musculoskeletal: Yes: Other Extremities: Yes: Other Neurological: Yes: Alert, Other (weak,lethargic) Labs: CBC, BMP 06/25/18 07:50 06/25/18 07:30 INR, PTT INR 1.26 (0.83-1.09) H 06/23/18 10:15 Assessment/Plan patient with multiple medical problems coming in with sepsis uti and bacteremia with elevated liver enzymes and fever nimisha gm negative bacteremia wound infection dm sepsis uti 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 (3) Abnormal liver enzymes Code(s): R74.8 - ABNORMAL LEVELS OF OTHER SERUM ENZYMES (4) Sacral decubitus ulcer, stage IV Code(s): L89.154 - PRESSURE ULCER OF SACRAL REGION, STAGE 4 (5) Sepsis Code(s): A41.9 - SEPSIS, UNSPECIFIED ORGANISM Qualifiers: Sepsis type: sepsis due to unspecified organism Qualified Code(s): A41.9 - Sepsis, unspecified organism (6) Anemia Code(s): D64.9 - ANEMIA, UNSPECIFIED (7) Bacteremia Code(s): R78.81 - BACTEREMIA (8) Fever Code(s): R50.9 - FEVER, UNSPECIFIED Qualifiers: Fever type: unspecified Qualified Code(s): R50.9 - Fever, unspecified (9) Basilic vein thrombosis Code(s): I82.619 - ACUTE EMBOLISM AND THROMBOSIS OF SUPERFIC VN UNSP UP EXTREM growing esbl wound cx and sensitivities note plan continue current mgmt continue abx iv 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
[2018-06-27] MEDS ORDERED: PT OWN MED DRAWER 7, Y5N ONE (01:28)
[2018-06-27] MEDS: MEROPENEM 1 GM in DEXTROSE 5%-WATER 100 ML IVPB SCH ×3 (01:40→18:28)
[2018-06-27] MEDS: AMINO ACIDS 4.25%/D5W 1,000 ML IV SCH ×4 (02:53→17:34)
[2018-06-27] MEDS: ZINC SULFATE 220 MG CAPSULE (FP) PO SCH (09:18)
[2018-06-27] MEDS: POLYETHYLENE GLYCOL 3350 255 GM BTL PO SCH (09:18)
[2018-06-27] MEDS: FOLIC ACID 1 MG TABLET (FP) PO SCH (09:18)
[2018-06-27] MEDS: ASCORBIC ACID 500 MG TABLET (FP) PO SCH ×2 (09:18→23:02)
[2018-06-27] MEDS: DOXYCYCLINE HYCLATE 100 MG CAPSULE PO SCH ×2 (09:18→18:17)
--- NOTE | 2018-06-27 10:28 | PN ---
Progress Note (short form) - Note Progress Note: AWAKE ALERT IN BED LETHARGIC AGREEING TO GTUBE WHICH IS ORDERED FOR TOMORROW MORNING TO BE DONE BY I.R. 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 (3) Abnormal liver enzymes Code(s): R74.8 - ABNORMAL LEVELS OF OTHER SERUM ENZYMES (4) Sacral decubitus ulcer, stage IV Code(s): L89.154 - PRESSURE ULCER OF SACRAL REGION, STAGE 4 (5) Sepsis Code(s): A41.9 - SEPSIS, UNSPECIFIED ORGANISM Qualifiers: Sepsis type: sepsis due to unspecified organism Qualified Code(s): A41.9 - Sepsis, unspecified organism (6) Anemia Code(s): D64.9 - ANEMIA, UNSPECIFIED (7) Bacteremia Code(s): R78.81 - BACTEREMIA (8) Fever Code(s): R50.9 - FEVER, UNSPECIFIED Qualifiers: Fever type: unspecified Qualified Code(s): R50.9 - Fever, unspecified (9) Basilic vein thrombosis Code(s): I82.619 - ACUTE EMBOLISM AND THROMBOSIS OF SUPERFIC VN UNSP UP EXTREM
[2018-06-27] MEDS: ZINC OXIDE 20% TOPICAL OINTMENT 30 GM TUBE TP SCH ×2 (11:24→23:02)
--- NOTE | 2018-06-27 11:26 | PN ---
Progress Note, Physician History of Present Illness: patient stable no new issues still very weak and lethargic plan for peg tube tomorrow - Current Medication List Current Medications: Active Medications Acetaminophen (Tylenol -) 975 mg PO Q8H PRN PRN Reason: PAIN OR FEVER Ascorbic Acid (Vitamin C -) 500 mg PO BID [facility] Last Admin: 06/27/18 09:18 Dose: Not Given Doxycycline Hyclate (Vibramycin -) 100 mg PO BID@1000,1800 [facility] Last Admin: 06/27/18 09:18 Dose: Not Given Folic Acid (Folic Acid -) 1 mg PO DAILY [facility] Last Admin: 06/27/18 09:18 Dose: Not Given IV Flush (Picc Line Flush) 8 ml IVPUSH PRN PRN PRN Reason: Protocol Meropenem 1 gm/ Dextrose 100 mls @ 200 mls/hr IVPB Q8H-IV [facility] Last Admin: 06/27/18 01:40 Dose: 200 mls/hr Amino Acids (Clinimix -) 1,000 mls @ 84 mls/hr IV Q12H [facility] Last Admin: 06/27/18 09:19 Dose: Not Given Metoprolol Tartrate (Lopressor Injection -) 5 mg IVPB Q4H PRN PRN Reason: HYPERTENSION Multi-Ingredient Ointment (Zinc Oxide) 1 applic TP BID [facility] Last Admin: 06/26/18 22:05 Dose: 1 applic Polyethylene Glycol (Miralax (For Bowel Prep) -) 17 gm PO DAILY [facility] Last Admin: 06/27/18 09:18 Dose: Not Given Sodium Chloride ([place] Nasal [place] -) 2 spray NS TID PRN PRN Reason: NASAL CONGESTION Last Admin: 06/19/18 13:41 Dose: 2 spray Zinc Sulfate (Orazinc -) 220 mg PO DAILY [facility] Last Admin: 06/27/18 09:18 Dose: Not Given - Objective Vital Signs: Vital Signs Temperature 98.2 F 06/27/18 06:37 Pulse Rate 76 06/27/18 06:37 Respiratory Rate 18 06/27/18 06:37 Blood Pressure 129/60 06/27/18 06:37 O2 Sat by Pulse Oximetry (%) 96 06/26/18 21:00 Constitutional: Yes: No Distress, Calm Cardiovascular: Yes: S1, S2 Respiratory: Yes: Regular, CTA Bilaterally Gastrointestinal: Yes: Normal Bowel Sounds, Soft, Other (ng tube in place) Musculoskeletal: Yes: WNL Extremities: Yes: WNL Neurological: Yes: Other Labs: CBC, BMP 06/25/18 07:50 06/25/18 07:30 INR, PTT INR 1.26 (0.83-1.09) H 06/23/18 10:15 Assessment/Plan patient with multiple medical problems coming in with sepsis uti and bacteremia with elevated liver enzymes and fever nimisha gm negative bacteremia wound infection dm sepsis uti 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 (3) Abnormal liver enzymes Code(s): R74.8 - ABNORMAL LEVELS OF OTHER SERUM ENZYMES (4) Sacral decubitus ulcer, stage IV Code(s): L89.154 - PRESSURE ULCER OF SACRAL REGION, STAGE 4 (5) Sepsis Code(s): A41.9 - SEPSIS, UNSPECIFIED ORGANISM Qualifiers: Sepsis type: sepsis due to unspecified organism Qualified Code(s): A41.9 - Sepsis, unspecified organism (6) Anemia Code(s): D64.9 - ANEMIA, UNSPECIFIED (7) Bacteremia Code(s): R78.81 - BACTEREMIA (8) Fever Code(s): R50.9 - FEVER, UNSPECIFIED Qualifiers: Fever type: unspecified Qualified Code(s): R50.9 - Fever, unspecified (9) Basilic vein thrombosis Code(s): I82.619 - ACUTE EMBOLISM AND THROMBOSIS OF SUPERFIC VN UNSP UP EXTREM growing esbl wound cx and sensitivities note plan continue current mgmt continue abx we will continue them untill peg tube is placed and thens top them nutrition
[2018-06-28] MEDS: MEROPENEM 1 GM in DEXTROSE 5%-WATER 100 ML IVPB SCH ×3 (01:39→18:04)
[2018-06-28] MEDS: AMINO ACIDS 4.25%/D5W 1,000 ML IV SCH ×2 (03:30→20:00)
--- NOTE | 2018-06-28 04:04 | HOSP ---
Physical Examination Vital Signs: Vital Signs Temperature 97.8 F 06/28/18 01:52 Pulse Rate 91 H 06/28/18 01:52 Respiratory Rate 18 06/28/18 01:52 Blood Pressure 85/63 L 06/28/18 01:52 O2 Sat by Pulse Oximetry (%) 96 06/27/18 09:00 Labs: CBC, BMP 06/25/18 07:50 06/25/18 07:30 Hospitalist Encounter Assessment: NGT placement attempted (as per order) multiple times. Tube visualized coiled in posterior pharynx. Attempts aborted, RN to notify PCP in am.
--- NOTE | 2018-06-28 09:03 | PN ---
Progress Note, Physician Chief Complaint: UNSUCCESSFUL PLACEMENT OF NGT BY HOUSE STAFF ASLEEP NAD - Current Medication List Current Medications: Active Medications Acetaminophen (Tylenol -) 975 mg PO Q8H PRN PRN Reason: PAIN OR FEVER Ascorbic Acid (Vitamin C -) 500 mg PO BID [facility] Last Admin: 06/27/18 23:02 Dose: Not Given Doxycycline Hyclate (Vibramycin -) 100 mg PO BID@1000,1800 [facility] Last Admin: 06/27/18 18:17 Dose: Not Given Folic Acid (Folic Acid -) 1 mg PO DAILY [facility] Last Admin: 06/27/18 09:18 Dose: Not Given IV Flush (Picc Line Flush) 8 ml IVPUSH PRN PRN PRN Reason: Protocol Meropenem 1 gm/ Dextrose 100 mls @ 200 mls/hr IVPB Q8H-IV [facility] Last Admin: 06/28/18 01:39 Dose: 200 mls/hr Amino Acids (Clinimix -) 1,000 mls @ 84 mls/hr IV Q12H [facility] Last Admin: 06/28/18 03:30 Dose: 84 mls/hr Metoprolol Tartrate (Lopressor Injection -) 5 mg IVPB Q4H PRN PRN Reason: HYPERTENSION Multi-Ingredient Ointment (Zinc Oxide) 1 applic TP BID [facility] Last Admin: 06/27/18 23:02 Dose: 1 applic Polyethylene Glycol (Miralax (For Bowel Prep) -) 17 gm PO DAILY [facility] Last Admin: 06/27/18 09:18 Dose: Not Given Sodium Chloride ([place] Nasal [place] -) 2 spray NS TID PRN PRN Reason: NASAL CONGESTION Last Admin: 06/19/18 13:41 Dose: 2 spray Zinc Sulfate (Orazinc -) 220 mg PO DAILY [facility] Last Admin: 06/27/18 09:18 Dose: Not Given - Objective Vital Signs: Vital Signs Temperature 97.9 F 06/28/18 06:05 Pulse Rate 89 06/28/18 06:05 Respiratory Rate 18 06/28/18 06:05 Blood Pressure 124/45 L 06/28/18 06:05 O2 Sat by Pulse Oximetry (%) 96 06/27/18 21:00 Constitutional: Yes: No Distress Eyes: Yes: WNL HENT: Yes: WNL Neck: Yes: WNL Cardiovascular: Yes: Pulse Irregular Respiratory: Yes: Diminished, On Nasal O2 Gastrointestinal: Yes: Soft, Other Genitourinary: Yes: Incontinence Musculoskeletal: Yes: Muscle Weakness Extremities: Yes: Other Edema: No Peripheral Pulses WNL: Yes Integumentary: Yes: Other Wound/Incision: Yes: Dressing Dry and Intact Neurological: Yes: Pre-Existing Deficit ...Motor Strength: LLE, RLE Psychiatric: Yes: Other Labs: CBC, BMP 06/25/18 07:50 06/25/18 07:30 INR, PTT INR 1.26 (0.83-1.09) H 06/23/18 10:15 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 (3) Abnormal liver enzymes Code(s): R74.8 - ABNORMAL LEVELS OF OTHER SERUM ENZYMES (4) Sacral decubitus ulcer, stage IV Code(s): L89.154 - PRESSURE ULCER OF SACRAL REGION, STAGE 4 (5) Sepsis Code(s): A41.9 - SEPSIS, UNSPECIFIED ORGANISM Qualifiers: Sepsis type: sepsis due to unspecified organism Qualified Code(s): A41.9 - Sepsis, unspecified organism (6) Anemia Code(s): D64.9 - ANEMIA, UNSPECIFIED (7) Bacteremia Code(s): R78.81 - BACTEREMIA (8) Fever Code(s): R50.9 - FEVER, UNSPECIFIED Qualifiers: Fever type: unspecified Qualified Code(s): R50.9 - Fever, unspecified (9) Basilic vein thrombosis Code(s): I82.619 - ACUTE EMBOLISM AND THROMBOSIS OF SUPERFIC VN UNSP UP EXTREM Assessment/Plan ONCOLOGY WORKUP IN PROGRESS FAMILY REFUSED LIVER BIOPSY PER BECAUSE HER IS NOT A CANDIDATE FOR ANY SURGERY OR CHEMOTHERPAY THE RISK AT THIS POINT OUTWEIGHS THE BENEFIT. CAN READDRESS THIS AFTER TREATED WITH IV ABX FOR SEPSIS AND WOUND CARE IMPROVES. PLASTIC SURGERY EVAL FOR SACRAL STAGE 4 ULCER COLLAGENASE TO WOUND BASILIC VEIN THROMBOSIS VASCULAR SURGERY EVAL WARTM PACK THERAPY ESBL IN URINE PICC LINE WITH IV ABX OR PERIPHERAL LINE REFUSED BY HCP DAILY CLEANSING DVT PROPHYLAXIS MONITOR LABS ANEMIA WORKUP FAMILY REFUSING TRANSFUSION B/C OF RELIGOUS REASONS POTASSIUM REPLETE GTUBE TODAY HOSPICE AT HOME
[2018-06-28] MEDS: FOLIC ACID 1 MG TABLET (FP) PO SCH (09:53)
[2018-06-28] MEDS: POLYETHYLENE GLYCOL 3350 255 GM BTL PO SCH (09:53)
[2018-06-28] MEDS: ZINC SULFATE 220 MG CAPSULE (FP) PO SCH (09:53)
[2018-06-28] MEDS: DOXYCYCLINE HYCLATE 100 MG CAPSULE PO SCH ×2 (09:54→17:57)
[2018-06-28] MEDS: ASCORBIC ACID 500 MG TABLET (FP) PO SCH ×2 (09:54→22:17)
[2018-06-28] MEDS ORDERED: PT OWN MED DRAWER 7, Y5N ONE ×3 (11:11→20:40)
[2018-06-28] MEDS: ZINC OXIDE 20% TOPICAL OINTMENT 30 GM TUBE TP SCH ×2 (11:14→22:17)
--- NOTE | 2018-06-28 14:06 | PN ---
Progress Note, Physician History of Present Illness: continues to be in no change plan for peg tomorrow - Current Medication List Current Medications: Active Medications Acetaminophen (Tylenol -) 975 mg PO Q8H PRN PRN Reason: PAIN OR FEVER Ascorbic Acid (Vitamin C -) [address] [facility] Last Admin: 06/28/18 09:54 Dose: Not Given Doxycycline Hyclate (Vibramycin -) 100 mg PO BID@1000,1800 [facility] Last Admin: 06/28/18 09:54 Dose: Not Given Folic Acid (Folic Acid -) [address] [facility] Last Admin: 06/28/18 09:53 Dose: Not Given IV Flush (Picc Line Flush) 8 ml IVPUSH PRN PRN PRN Reason: Protocol Meropenem 1 gm/ Dextrose 100 mls @ 200 mls/hr IVPB Q8H-IV [facility] Last Admin: 06/28/18 11:15 Dose: 200 mls/hr Amino Acids (Clinimix -) 1,000 mls @ 84 mls/hr IV Q12H [facility] Last Admin: 06/28/18 03:30 Dose: 84 mls/hr Metoprolol Tartrate (Lopressor Injection -) 5 mg IVPB Q4H PRN PRN Reason: HYPERTENSION Multi-Ingredient Ointment (Zinc Oxide) [address] [facility] Last Admin: 06/28/18 11:14 Dose: 1 applic Polyethylene Glycol (Miralax (For Bowel Prep) -) [address] [facility] Last Admin: 06/28/18 09:53 Dose: Not Given Sodium Chloride ([place] Nasal [place] -) 2 spray NS TID PRN PRN Reason: NASAL CONGESTION Last Admin: 06/19/18 13:41 Dose: 2 spray Zinc Sulfate (Orazinc -) [address] [facility] Last Admin: 06/28/18 09:53 Dose: Not Given - Objective Vital Signs: Vital Signs Temperature 98 F 06/28/18 09:07 Pulse Rate 67 06/28/18 09:07 Respiratory Rate 20 06/28/18 09:07 Blood Pressure 100/73 06/28/18 09:07 O2 Sat by Pulse Oximetry (%) 96 06/27/18 21:00 Constitutional: Yes: Other (lethargic) Cardiovascular: Yes: Pulse Irregular, S1 Respiratory: Yes: Regular, Poor Air Entry Gastrointestinal: Yes: Normal Bowel Sounds, Soft Musculoskeletal: Yes: WNL Extremities: Yes: Other Neurological: Yes: Alert, Other (lethargic) Psychiatric: Yes: Other Labs: CBC, BMP 06/25/18 07:50 06/25/18 07:30 INR, PTT INR 1.26 (0.83-1.09) H 06/23/18 10:15 Assessment/Plan patient with multiple medical problems coming in with sepsis uti and bacteremia with elevated liver enzymes and fever nimisha gm negative bacteremia wound infection dm sepsis uti 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 (3) Abnormal liver enzymes Code(s): R74.8 - ABNORMAL LEVELS OF OTHER SERUM ENZYMES (4) Sacral decubitus ulcer, stage IV Code(s): L89.154 - PRESSURE ULCER OF SACRAL REGION, STAGE 4 (5) Sepsis Code(s): A41.9 - SEPSIS, UNSPECIFIED ORGANISM Qualifiers: Sepsis type: sepsis due to unspecified organism Qualified Code(s): A41.9 - Sepsis, unspecified organism (6) Anemia Code(s): D64.9 - ANEMIA, UNSPECIFIED (7) Bacteremia Code(s): R78.81 - BACTEREMIA (8) Fever Code(s): R50.9 - FEVER, UNSPECIFIED Qualifiers: Fever type: unspecified Qualified Code(s): R50.9 - Fever, unspecified (9) Basilic vein thrombosis Code(s): I82.619 - ACUTE EMBOLISM AND THROMBOSIS OF SUPERFIC VN UNSP UP EXTREM growing esbl wound cx and sensitivities note plan continue current mgmt continue abx we will continue them untill peg tube is placed and thens stop them nutrition
[2018-06-29] MEDS ORDERED: PT OWN MED DRAWER 7, Y5N ONE ×2 (02:19→18:12)
[2018-06-29] MEDS: MEROPENEM 1 GM in DEXTROSE 5%-WATER 100 ML IVPB SCH ×3 (02:21→18:24)
[2018-06-29] MEDS: AMINO ACIDS 4.25%/D5W 1,000 ML IV SCH ×2 (05:18→18:23)
[2018-06-29] MEDS: FOLIC ACID 1 MG TABLET (FP) PO SCH (10:12)
[2018-06-29] MEDS: POLYETHYLENE GLYCOL 3350 255 GM BTL PO SCH (10:12)
[2018-06-29] MEDS: ASCORBIC ACID 500 MG TABLET (FP) PO SCH ×2 (10:13→23:13)
[2018-06-29] MEDS: ZINC SULFATE 220 MG CAPSULE (FP) PO SCH (10:13)
[2018-06-29] MEDS: DOXYCYCLINE HYCLATE 100 MG CAPSULE PO SCH ×2 (10:13→18:19)
[2018-06-29] MEDS: ZINC OXIDE 20% TOPICAL OINTMENT 30 GM TUBE TP SCH ×2 (10:13→23:13)
--- NOTE | 2018-06-29 12:10 | PN ---
Progress Note (short form) - Note Progress Note: DISCUSSED WITH PATIENT'S HCP ZOYA, THE PATIENT IS VERY WEAK AND THE GTUBE PLACEMENT TODAY MAY BE A HIGH RISK. RICHY IS AWARE AND SAYS SHE WANTS EVERYTHING DONE FOR MR. GROSS TO BE KEPT ALIVE AND IS A FULL CODE WITH CPR/ INTUBATION IF NEEDED. I EXPLAINED THAT HE THE PATIENT IS HIGH RISK AND CAN HAVE SEVERE RISKS SUCH CARDIAC ARREST, RESPIRATORY FAILURE, GI PERFORATION, POST- ANESTHESIA REACTIONS/INFECTIONS AND RICHY IS WILLING TO ACCEPT THIS RISK. SHE SAYS"I CAN NOT WATCH HIM STARVE AND I WILL BE TAKING MR GROSS HOME WITH HOSPICE SO HE CAN AT HOME" BUT SHE WANTS A GTUBE FOR MEDS, HYDRATION, FEEDS. NURSE GURVINDER WITNESSED THE CONVERSATION. 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 (3) Abnormal liver enzymes Code(s): R74.8 - ABNORMAL LEVELS OF OTHER SERUM ENZYMES (4) Sacral decubitus ulcer, stage IV Code(s): L89.154 - PRESSURE ULCER OF SACRAL REGION, STAGE 4 (5) Sepsis Code(s): A41.9 - SEPSIS, UNSPECIFIED ORGANISM Qualifiers: Sepsis type: sepsis due to unspecified organism Qualified Code(s): A41.9 - Sepsis, unspecified organism (6) Anemia Code(s): D64.9 - ANEMIA, UNSPECIFIED (7) Bacteremia Code(s): R78.81 - BACTEREMIA (8) Fever Code(s): R50.9 - FEVER, UNSPECIFIED Qualifiers: Fever type: unspecified Qualified Code(s): R50.9 - Fever, unspecified (9) Basilic vein thrombosis Code(s): I82.619 - ACUTE EMBOLISM AND THROMBOSIS OF SUPERFIC VN UNSP UP EXTREM
--- NOTE | 2018-06-29 14:04 | PN ---
Progress Note, Physician History of Present Illness: awaiting peg tube patient very weak plan for peg today - Current Medication List Current Medications: Active Medications Acetaminophen (Tylenol -) 975 mg PO Q8H PRN PRN Reason: PAIN OR FEVER Ascorbic Acid (Vitamin C -) 500 mg PO BID [facility] Last Admin: 06/29/18 10:13 Dose: Not Given Doxycycline Hyclate (Vibramycin -) 100 mg PO BID@1000,1800 [facility] Last Admin: 06/29/18 10:13 Dose: Not Given Folic Acid (Folic Acid -) 1 mg PO DAILY [facility] Last Admin: 06/29/18 10:12 Dose: Not Given IV Flush (Picc Line Flush) 8 ml IVPUSH PRN PRN PRN Reason: Protocol Meropenem 1 gm/ Dextrose 100 mls @ 200 mls/hr IVPB Q8H-IV [facility] Last Admin: 06/29/18 12:38 Dose: Not Given Amino Acids (Clinimix -) 1,000 mls @ 84 mls/hr IV Q12H [facility] Last Admin: 06/29/18 05:18 Dose: 84 mls/hr Metoprolol Tartrate (Lopressor Injection -) 5 mg IVPB Q4H PRN PRN Reason: HYPERTENSION Multi-Ingredient Ointment (Zinc Oxide) 1 applic TP BID [facility] Last Admin: 06/29/18 10:13 Dose: Not Given Polyethylene Glycol (Miralax (For Bowel Prep) -) 17 gm PO DAILY [facility] Last Admin: 06/29/18 10:12 Dose: Not Given Sodium Chloride ([place] Nasal [place] -) 2 spray NS TID PRN PRN Reason: NASAL CONGESTION Last Admin: 06/19/18 13:41 Dose: 2 spray Zinc Sulfate (Orazinc -) 220 mg PO DAILY [facility] Last Admin: 06/29/18 10:13 Dose: Not Given - Objective Vital Signs: Vital Signs Temperature 98.1 F 06/29/18 09:00 Pulse Rate 82 06/29/18 13:55 Respiratory Rate 20 06/29/18 13:55 Blood Pressure 118/71 06/29/18 13:55 O2 Sat by Pulse Oximetry (%) 99 06/29/18 13:55 Constitutional: Yes: Thin, Other (failure to thrive) Cardiovascular: Yes: Pulse Irregular Respiratory: Yes: Regular, On Nasal O2 Gastrointestinal: Yes: Normal Bowel Sounds, Soft Musculoskeletal: Yes: WNL Extremities: Yes: Other Wound/Incision: Yes: Other (sacral decubitus) Neurological: Yes: Lethargy Psychiatric: Yes: Other Labs: CBC, BMP 06/25/18 07:50 06/25/18 07:30 INR, PTT INR 1.26 (0.83-1.09) H 06/23/18 10:15 Assessment/Plan patient with multiple medical problems coming in with sepsis uti and bacteremia with elevated liver enzymes and fever nimisha gm negative bacteremia wound infection dm sepsis uti 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 (3) Abnormal liver enzymes Code(s): R74.8 - ABNORMAL LEVELS OF OTHER SERUM ENZYMES (4) Sacral decubitus ulcer, stage IV Code(s): L89.154 - PRESSURE ULCER OF SACRAL REGION, STAGE 4 (5) Sepsis Code(s): A41.9 - SEPSIS, UNSPECIFIED ORGANISM Qualifiers: Sepsis type: sepsis due to unspecified organism Qualified Code(s): A41.9 - Sepsis, unspecified organism (6) Anemia Code(s): D64.9 - ANEMIA, UNSPECIFIED (7) Bacteremia Code(s): R78.81 - BACTEREMIA (8) Fever Code(s): R50.9 - FEVER, UNSPECIFIED Qualifiers: Fever type: unspecified Qualified Code(s): R50.9 - Fever, unspecified (9) Basilic vein thrombosis Code(s): I82.619 - ACUTE EMBOLISM AND THROMBOSIS OF SUPERFIC VN UNSP UP EXTREM plan continue current mgmt wound care resp support nutrition continue abx after peg tube brandee stop abx if patient remains stable
[2018-06-29] MEDS ORDERED: GLUCAGON 1 MG KIT IVPUSH ONE ×2 (14:08→14:45)
--- NOTE | 2018-06-29 15:18 | PN ---
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 No further f/u indicated.
[2018-06-30] MEDS ORDERED: PT OWN MED DRAWER 7, Y5N ONE (02:50)
[2018-06-30] MEDS: MEROPENEM 1 GM in DEXTROSE 5%-WATER 100 ML IVPB SCH ×2 (02:52→10:34)
[2018-06-30] MEDS: AMINO ACIDS 4.25%/D5W 1,000 ML IV SCH ×2 (05:51→17:51)
[2018-06-30] MEDS: FOLIC ACID 1 MG TABLET (FP) PO SCH (10:33)
[2018-06-30] MEDS: ASCORBIC ACID 500 MG TABLET (FP) PO SCH ×2 (10:35→23:19)
[2018-06-30] MEDS: POLYETHYLENE GLYCOL 3350 255 GM BTL PO SCH (10:35)
[2018-06-30] MEDS: DOXYCYCLINE HYCLATE 100 MG CAPSULE PO SCH ×2 (10:35→17:15)
[2018-06-30] MEDS: ZINC SULFATE 220 MG CAPSULE (FP) PO SCH (10:35)
[2018-06-30] MEDS: ZINC OXIDE 20% TOPICAL OINTMENT 30 GM TUBE TP SCH ×2 (10:36→23:19)
--- NOTE | 2018-06-30 15:57 | PN ---
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 - Current Medication List Current Medications: Active Medications Acetaminophen (Tylenol -) 975 mg PO Q8H PRN PRN Reason: PAIN OR FEVER Ascorbic Acid (Vitamin C -) 500 mg PO BID [facility] Last Admin: 06/30/18 10:35 Dose: Not Given Doxycycline Hyclate (Vibramycin -) 100 mg PO BID@1000,1800 [facility] Last Admin: 06/30/18 10:35 Dose: Not Given Folic Acid (Folic Acid -) 1 mg PO DAILY [facility] Last Admin: 06/30/18 10:33 Dose: Not Given IV Flush (Picc Line Flush) 8 ml IVPUSH PRN PRN PRN Reason: Protocol Meropenem 1 gm/ Dextrose 100 mls @ 200 mls/hr IVPB Q8H-IV [facility] Last Admin: 06/30/18 10:34 Dose: 200 mls/hr Amino Acids (Clinimix -) 1,000 mls @ 84 mls/hr IV Q12H [facility] Last Admin: 06/30/18 05:51 Dose: 84 mls/hr Metoprolol Tartrate (Lopressor Injection -) 5 mg IVPB Q4H PRN PRN Reason: HYPERTENSION Multi-Ingredient Ointment (Zinc Oxide) 1 applic TP BID [facility] Last Admin: 06/30/18 10:36 Dose: 1 applic Polyethylene Glycol (Miralax (For Bowel Prep) -) 17 gm PO DAILY [facility] Last Admin: 06/30/18 10:35 Dose: Not Given Sodium Chloride ([place] Nasal [place] -) 2 spray NS TID PRN PRN Reason: NASAL CONGESTION Last Admin: 06/19/18 13:41 Dose: 2 spray Zinc Sulfate (Orazinc -) 220 mg PO DAILY [facility] Last Admin: 06/30/18 10:35 Dose: Not Given - Objective Vital Signs: Vital Signs Temperature 97.5 F L 06/30/18 15:34 Pulse Rate 109 H 06/30/18 15:34 Respiratory Rate 20 06/30/18 15:34 Blood Pressure 116/50 L 06/30/18 15:34 O2 Sat by Pulse Oximetry (%) 95 06/30/18 09:00 Constitutional: Yes: Other Neck: Yes: Supple Cardiovascular: Yes: Pulse Irregular Gastrointestinal: Yes: Normal Bowel Sounds, Soft, Other (peg in place) Extremities: Yes: Other Neurological: Yes: Lethargy Labs: CBC, BMP 06/25/18 07:50 06/25/18 07:30 INR, PTT INR 1.26 (0.83-1.09) H 06/23/18 10:15 Assessment/Plan patient with multiple medical problems coming in with sepsis uti and bacteremia with elevated liver enzymes and fever nimisha gm negative bacteremia wound infection dm sepsis uti 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 (3) Abnormal liver enzymes Code(s): R74.8 - ABNORMAL LEVELS OF OTHER SERUM ENZYMES (4) Sacral decubitus ulcer, stage IV Code(s): L89.154 - PRESSURE ULCER OF SACRAL REGION, STAGE 4 (5) Sepsis Code(s): A41.9 - SEPSIS, UNSPECIFIED ORGANISM Qualifiers: Sepsis type: sepsis due to unspecified organism Qualified Code(s): A41.9 - Sepsis, unspecified organism (6) Anemia Code(s): D64.9 - ANEMIA, UNSPECIFIED (7) Bacteremia Code(s): R78.81 - BACTEREMIA (8) Fever Code(s): R50.9 - FEVER, UNSPECIFIED Qualifiers: Fever type: unspecified Qualified Code(s): R50.9 - Fever, unspecified (9) Basilic vein thrombosis Code(s): I82.619 - ACUTE EMBOLISM AND THROMBOSIS OF SUPERFIC VN UNSP UP EXTREM plan continue current mgmt wound care resp support nutrition will stop abx tomorrow
--- NOTE | 2018-06-30 16:17 | PN ---
Progress Note, Physician Chief Complaint: Requested by the family to f/u after peg tube placed. No new complaints , peg tube is in place. - Current Medication List Current Medications: Active Medications Acetaminophen (Tylenol -) 975 mg PO Q8H PRN PRN Reason: PAIN OR FEVER Ascorbic Acid (Vitamin C -) 500 mg PO BID [facility] Last Admin: 06/30/18 10:35 Dose: Not Given Doxycycline Hyclate (Vibramycin -) 100 mg PO BID@1000,1800 [facility] Last Admin: 06/30/18 10:35 Dose: Not Given Folic Acid (Folic Acid -) 1 mg PO DAILY [facility] Last Admin: 06/30/18 10:33 Dose: Not Given IV Flush (Picc Line Flush) 8 ml IVPUSH PRN PRN PRN Reason: Protocol Amino Acids (Clinimix -) 1,000 mls @ 84 mls/hr IV Q12H [facility] Last Admin: 06/30/18 05:51 Dose: 84 mls/hr Metoprolol Tartrate (Lopressor Injection -) 5 mg IVPB Q4H PRN PRN Reason: HYPERTENSION Multi-Ingredient Ointment (Zinc Oxide) 1 applic TP BID [facility] Last Admin: 06/30/18 10:36 Dose: 1 applic Polyethylene Glycol (Miralax (For Bowel Prep) -) 17 gm PO DAILY [facility] Last Admin: 06/30/18 10:35 Dose: Not Given Sodium Chloride ([place] Nasal [place] -) 2 spray NS TID PRN PRN Reason: NASAL CONGESTION Last Admin: 06/19/18 13:41 Dose: 2 spray Zinc Sulfate (Orazinc -) 220 mg PO DAILY [facility] Last Admin: 06/30/18 10:35 Dose: Not Given - Objective Vital Signs: Vital Signs Temperature 97.5 F L 06/30/18 15:34 Pulse Rate 109 H 06/30/18 15:34 Respiratory Rate 20 06/30/18 15:34 Blood Pressure 116/50 L 06/30/18 15:34 O2 Sat by Pulse Oximetry (%) 95 06/30/18 09:00 Constitutional: Yes: No Distress, Calm Eyes: Yes: WNL HENT: Yes: WNL, Other (NGT) Neck: Yes: WNL Cardiovascular: Yes: WNL Respiratory: Yes: WNL Gastrointestinal: Yes: Other (soft nontender , peg tube in palce , clean dry - intermitent suction) Extremities: Yes: WNL Edema: No Labs: CBC, BMP 06/25/18 07:50 06/25/18 07:30 INR, PTT INR 1.26 (0.83-1.09) H 06/23/18 10:15 Problem List - Problems (1) Dysphagia Assessment/Plan: DC NGT nutrition consultation start feeds as per nutrition service recommendation may use peg for water flushes and medications plan of care discussed with RN Code(s): R13.10 - DYSPHAGIA, UNSPECIFIED
--- NOTE | 2018-06-30 17:01 | PN ---
Progress Note (short form) - Note Progress Note: GTUBE PLACED, NGT IN PLACE PATIENT ASLEEP NAD HCP BEDSIDE AWAITING OFFICIAL ABDOMINAL XRAY RESULT CAN START FEEDS WHEN CLEARED BY GI WOULD START SLOWLY 20CC/HR CAN CHANGE MEDS AND FLUIDS THROUGH GTUBE HOME HOSPICE ORDERED WHEN READY CAN DC HOME 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 (3) Abnormal liver enzymes Code(s): R74.8 - ABNORMAL LEVELS OF OTHER SERUM ENZYMES (4) Sacral decubitus ulcer, stage IV Code(s): L89.154 - PRESSURE ULCER OF SACRAL REGION, STAGE 4 (5) Sepsis Code(s): A41.9 - SEPSIS, UNSPECIFIED ORGANISM Qualifiers: Sepsis type: sepsis due to unspecified organism Qualified Code(s): A41.9 - Sepsis, unspecified organism (6) Anemia Code(s): D64.9 - ANEMIA, UNSPECIFIED (7) Bacteremia Code(s): R78.81 - BACTEREMIA (8) Fever Code(s): R50.9 - FEVER, UNSPECIFIED Qualifiers: Fever type: unspecified Qualified Code(s): R50.9 - Fever, unspecified (9) Basilic vein thrombosis Code(s): I82.619 - ACUTE EMBOLISM AND THROMBOSIS OF SUPERFIC VN UNSP UP EXTREM
[2018-07-01] MEDS: AMINO ACIDS 4.25%/D5W 1,000 ML IV SCH ×2 (05:52→17:10)
--- NOTE | 2018-07-01 09:42 | PN ---
Progress Note, Physician Chief Complaint: HCP BEDSIDE PATIENT LETHARGIC AROUSED BY PHYSICAL STIMULI NO FEVER 02 SAT THIS AM 59% 100% OR STARTED - Current Medication List Current Medications: Active Medications Acetaminophen (Tylenol -) 975 mg PO Q8H PRN PRN Reason: PAIN OR FEVER Ascorbic Acid (Vitamin C -) 500 mg PO BID [facility] Last Admin: 06/30/18 23:19 Dose: 500 mg Doxycycline Hyclate (Vibramycin -) 100 mg PO BID@1000,1800 [facility] Last Admin: 06/30/18 17:15 Dose: Not Given Folic Acid (Folic Acid -) 1 mg PO DAILY [facility] Last Admin: 06/30/18 10:33 Dose: Not Given IV Flush (Picc Line Flush) 8 ml IVPUSH PRN PRN PRN Reason: Protocol Amino Acids (Clinimix -) 1,000 mls @ 84 mls/hr IV Q12H [facility] Last Admin: 07/01/18 05:52 Dose: 84 mls/hr Metoprolol Tartrate (Lopressor Injection -) 5 mg IVPB Q4H PRN PRN Reason: HYPERTENSION Multi-Ingredient Ointment (Zinc Oxide) 1 applic TP BID [facility] Last Admin: 06/30/18 23:19 Dose: 1 applic Polyethylene Glycol (Miralax (For Bowel Prep) -) 17 gm PO DAILY [facility] Last Admin: 06/30/18 10:35 Dose: Not Given Sodium Chloride ([place] Nasal [place] -) 2 spray NS TID PRN PRN Reason: NASAL CONGESTION Last Admin: 06/19/18 13:41 Dose: 2 spray Zinc Sulfate (Orazinc -) 220 mg PO DAILY [facility] Last Admin: 06/30/18 10:35 Dose: Not Given - Objective Vital Signs: Vital Signs Temperature 97.7 F 07/01/18 08:30 Pulse Rate 89 07/01/18 08:30 Respiratory Rate 20 07/01/18 08:30 Blood Pressure 110/57 L 07/01/18 08:30 O2 Sat by Pulse Oximetry (%) 95 06/30/18 21:00 Constitutional: Yes: Mild Distress Cardiovascular: Yes: Regular Rate and Rhythm Respiratory: Yes: On Venti-Mask, SOB Gastrointestinal: Yes: Soft (GTUBE IN TACT CLEAN SOFT ABD), Other Genitourinary: Yes: [place] Present Musculoskeletal: Yes: Muscle Weakness Edema: Yes Edema: LUE: 2+, RUE: 2+ Peripheral Pulses WNL: Yes Integumentary: Yes: Pressure Ulcer (STAGE 4) Wound/Incision: Yes: Dressing Dry and Intact Neurological: Yes: Pre-Existing Deficit, Other ...Motor Strength: LLE, RLE Psychiatric: Yes: Other Labs: CBC, BMP 06/25/18 07:50 06/25/18 07:30 INR, PTT INR 1.26 (0.83-1.09) H 06/23/18 10:15 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 (3) Abnormal liver enzymes Code(s): R74.8 - ABNORMAL LEVELS OF OTHER SERUM ENZYMES (4) Sacral decubitus ulcer, stage IV Code(s): L89.154 - PRESSURE ULCER OF SACRAL REGION, STAGE 4 (5) Sepsis Code(s): A41.9 - SEPSIS, UNSPECIFIED ORGANISM Qualifiers: Sepsis type: sepsis due to unspecified organism Qualified Code(s): A41.9 - Sepsis, unspecified organism (6) Anemia Code(s): D64.9 - ANEMIA, UNSPECIFIED (7) Bacteremia Code(s): R78.81 - BACTEREMIA (8) Fever Code(s): R50.9 - FEVER, UNSPECIFIED Qualifiers: Fever type: unspecified Qualified Code(s): R50.9 - Fever, unspecified (9) Basilic vein thrombosis Code(s): I82.619 - ACUTE EMBOLISM AND THROMBOSIS OF SUPERFIC VN UNSP UP EXTREM Assessment/Plan CHECK EKG/LABS NOW RENEW NEBS 02 SUPPORT HCP REFUSING PRBC TRANSFUSIONS WILL ORDER IRON SUCROSE IV HEME F/U HOLD OFF ON TRANSFER TO HOME HOSPICE UNTIL MORE STABLE
[2018-07-01 10:18] LABS: HEMATOCRIT 25.6 % (35.4-49); HEMOGLOBIN 8.2 GM/dL (11.7-16.9); MCH 26.7 pg (25.7-33.7); MCHC 32.1 g/dl (32.0-35.9); MEAN CELL VOLUME 83.2 fl (80-96); PLATELET COUNT 78 K/MM3 (134-434); RBC 3.08 M/mm3 (4.00-5.60); RDW 23.4 % (11.9-15.9); WHITE BLOOD COUNT 10.2 K/mm3 (4.0-10.0)
[2018-07-01] MEDS: ZINC SULFATE 220 MG CAPSULE (FP) PO SCH (10:31)
[2018-07-01] MEDS: FOLIC ACID 1 MG TABLET (FP) PO SCH (10:31)
[2018-07-01] MEDS: POLYETHYLENE GLYCOL 3350 255 GM BTL PO SCH (10:31)
[2018-07-01] MEDS: ZINC OXIDE 20% TOPICAL OINTMENT 30 GM TUBE TP SCH ×2 (10:32→23:09)
[2018-07-01] MEDS: DOXYCYCLINE HYCLATE 100 MG CAPSULE PO SCH ×2 (10:32→17:10)
[2018-07-01] MEDS: ASCORBIC ACID 500 MG TABLET (FP) PO SCH ×2 (10:32→23:09)
[2018-07-01 11:03] LABS: ALBUMIN 1.3 g/dl (3.4-5.0); ALK PHOS 454 U/L (45-117); ANION GAP 15 MMOL/L (8-16); BILIRUBIN,TOTAL 2.1 mg/dL (0.2-1); BLOOD UREA NITROGEN 93 mg/dL (7-18); CALCIUM 8.2 mg/dL (8.5-10.1); CHLORIDE 94 mmol/L (98-107); CO2 13 mmol/L (21-32); GLUCOSE,RANDOM 157 mg/dL (74-106); SGOT/AST 454 U/L (15-37); SGPT/ALT 54 U/L (13-61); SODIUM 122 mmol/L (136-145); TOT PROT 6.4 g/dl (6.4-8.2)
[2018-07-01 11:12] LABS: POTASSIUM 2.9 mmol/L (3.5-5.1)
--- NOTE | 2018-07-01 12:08 | EKG ---
Test Reason : Blood Pressure : / mmHG Vent. Rate : 082 BPM Atrial Rate : 082 BPM P-R Int : 170 ms QRS Dur : 134 ms QT Int : 406 ms P-R-T Axes : -24 -49 099 degrees QTc Int : 474 ms SINUS RHYTHM WITH PREMATURE ATRIAL COMPLEXES LEFT AXIS DEVIATION NON-SPECIFIC INTRA-VENTRICULAR CONDUCTION BLOCK CANNOT RULE OUT SEPTAL INFARCT (CITED ON OR BEFORE 18-MAR-2018) ABNORMAL ECG WHEN COMPARED WITH ECG OF 12-JUN-2018 17:24, PREMATURE VENTRICULAR COMPLEXES ARE NO LONGER PRESENT PREMATURE ATRIAL COMPLEXES ARE NOW PRESENT QRS DURATION HAS INCREASED Confirmed by ADONIS HANKINS MD ([id number]) on 07/01/2018 12:07:56 PM Referred By: JOHN BELL Confirmed By:ADONIS HANKINS MD
[2018-07-01 12:34] LABS: PHOSPHOROUS 2.8 mg/dL (2.5-4.9)
--- NOTE | 2018-07-01 14:41 | PN ---
Progress Note, Physician History of Present Illness: weak lethargic post gi tube placement events noted had it seems a hypoxic episodes currently stable feeding started - Current Medication List Current Medications: Active Medications Acetaminophen (Tylenol -) 975 mg PO Q8H PRN PRN Reason: PAIN OR FEVER Ascorbic Acid (Vitamin C -) 500 mg PO BID [facility] Last Admin: 07/01/18 10:32 Dose: 500 mg Doxycycline Hyclate (Vibramycin -) 100 mg PO BID@1000,1800 [facility] Last Admin: 07/01/18 10:32 Dose: 100 mg Folic Acid (Folic Acid -) 1 mg PO DAILY [facility] Last Admin: 07/01/18 10:31 Dose: 1 mg IV Flush (Picc Line Flush) 8 ml IVPUSH PRN PRN PRN Reason: Protocol Amino Acids (Clinimix -) 1,000 mls @ 84 mls/hr IV Q12H [facility] Last Admin: 07/01/18 05:52 Dose: 84 mls/hr Metoprolol Tartrate (Lopressor Injection -) 5 mg IVPB Q4H PRN PRN Reason: HYPERTENSION Multi-Ingredient Ointment (Zinc Oxide) 1 applic TP BID [facility] Last Admin: 07/01/18 10:32 Dose: 1 applic Polyethylene Glycol (Miralax (For Bowel Prep) -) 17 gm PO DAILY [facility] Last Admin: 07/01/18 10:31 Dose: 17 gm Sodium Chloride ([place] Nasal [place] -) 2 spray NS TID PRN PRN Reason: NASAL CONGESTION Last Admin: 06/19/18 13:41 Dose: 2 spray Zinc Sulfate (Orazinc -) 220 mg PO DAILY [facility] Last Admin: 07/01/18 10:31 Dose: 220 mg - Objective Vital Signs: Vital Signs Temperature 97.8 F 07/01/18 14:26 Pulse Rate 83 07/01/18 14:26 Respiratory Rate 20 07/01/18 14:26 Blood Pressure 150/71 07/01/18 14:26 O2 Sat by Pulse Oximetry (%) 95 06/30/18 21:00 Constitutional: Yes: Calm, Other Cardiovascular: Yes: Pulse Irregular, S1, S2 Respiratory: Yes: Regular, Poor Air Entry Gastrointestinal: Yes: Normal Bowel Sounds, Soft, Other (peg in place) Musculoskeletal: Yes: Other Extremities: Yes: Other Neurological: Yes: Alert, Other (lethargy) Labs: CBC, BMP 10/11/18 10:00 07/01/18 10:00 INR, PTT INR 1.26 (0.83-1.09) H 06/23/18 10:15 Assessment/Plan patient with multiple medical problems coming in with sepsis uti and bacteremia with elevated liver enzymes and fever nimisha gm negative bacteremia wound infection dm sepsis uti 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 (3) Abnormal liver enzymes Code(s): R74.8 - ABNORMAL LEVELS OF OTHER SERUM ENZYMES (4) Sacral decubitus ulcer, stage IV Code(s): L89.154 - PRESSURE ULCER OF SACRAL REGION, STAGE 4 (5) Sepsis Code(s): A41.9 - SEPSIS, UNSPECIFIED ORGANISM Qualifiers: Sepsis type: sepsis due to unspecified organism Qualified Code(s): A41.9 - Sepsis, unspecified organism (6) Anemia Code(s): D64.9 - ANEMIA, UNSPECIFIED (7) Bacteremia Code(s): R78.81 - BACTEREMIA (8) Fever Code(s): R50.9 - FEVER, UNSPECIFIED Qualifiers: Fever type: unspecified Qualified Code(s): R50.9 - Fever, unspecified (9) Basilic vein thrombosis Code(s): I82.619 - ACUTE EMBOLISM AND THROMBOSIS OF SUPERFIC VN UNSP UP EXTREM growing esbl wound cx and sensitivities note plan continue current mgmt continue doxy close watch aspiration precautions
--- NOTE | 2018-07-01 15:11 | PN ---
Physical Exam: SUBJECTIVE: Patient seen and examined at bedside. Appears weak and lethargic. S/ P G-tube yesterday. Feeds started. OBJECTIVE: Vital Signs Period Temp Pulse Resp BP Sys/[place] Pulse Ox Last 24 Hr 97.4 F-98.2 F 83-109 20-20 109-150/50-98 95-96 GENERAL: calm NAD LUNGS: poor respiratory effort. Diminished bilateral breath sounds. HEART: RRR, S1, S2 ABDOMEN: Soft, NTND, G tube in place. EXTREMITIES: 2+ pulses, warm, well-perfused, no edema. Laboratory Results - last 24 hr 07/01/18 07/01/18 10:00 10:00 WBC 10.2 H RBC 3.08 L Hgb 8.2 L Hct 25.6 L MCV 83.2 MCH 26.7 MCHC 32.1 RDW 23.4 H Plt Count 78 L D MPV 9.0 Sodium 122 L Potassium 2.9 L* Chloride 94 L Carbon Dioxide 13 L Anion Gap 15 BUN 93 H Creatinine 1.0 Creat Clearance w eGFR > 60 Random Glucose 157 H Calcium 8.2 L Phosphorus 2.8 Magnesium 2.0 Total Bilirubin 2.1 H AST 454 H ALT 54 Alkaline Phosphatase 454 H Creatine Kinase 580 H Creatine Kinase Index 0.2 CK-MB (CK-2) 1.5 Troponin I 0.13 H Total Protein 6.4 Albumin 1.3 L Active Medications Generic Name Dose Route Start Last Admin Trade Name Freq PRN Reason Stop Dose Admin Acetaminophen 975 mg 06/16/18 15:13 Tylenol - PO Q8H PRN PAIN OR FEVER Ascorbic Acid 500 mg 06/13/18 22:00 07/01/18 10:32 Vitamin C - PO 500 mg BID JEF Administration Doxycycline Hyclate 100 mg 06/18/18 18:00 07/01/18 10:32 Vibramycin - PO 100 mg BID@1000,1800 JEF Administration Folic Acid 1 mg 06/15/18 10:00 07/01/18 10:31 Folic Acid - PO 1 mg DAILY JEF Administration IV Flush 8 ml 06/21/18 09:17 Picc Line Flush IVPUSH PRN PRN Protocol Amino Acids 1,000 mls @ 84 mls/hr 06/26/18 16:15 07/01/18 05:52 Clinimix - IV 84 mls/hr Q12H JEF Administration Metoprolol Tartrate 5 mg 06/22/18 11:14 Lopressor Injection - IVPB Q4H PRN HYPERTENSION Multi-Ingredient Ointment 1 applic 06/13/18 22:00 07/01/18 10:32 Zinc Oxide TP 1 applic BID JEF Administration Polyethylene Glycol 17 gm 06/14/18 10:00 07/01/18 10:31 Miralax (For Bowel Prep) - PO 17 gm DAILY [facility]EF Administration Sodium Chloride 2 spray 06/19/18 11:32 06/19/18 13:41 [place] Nasal [place] - NS 2 spray TID PRN Administration NASAL CONGESTION Zinc Sulfate 220 mg 06/21/18 10:00 07/01/18 10:31 Orazinc - PO 220 mg DAILY JEF Administration ASSESSMENT/PLAN: 72 y/o patient resident of facility, with parkinsons disease, HTN, HLD, COPD, type 1 diabetes, osteomyelitis, heart disease, GERD, anemia, and depression, severe normocytic anemia, admitted with sacral decubitus, G- bacteremia, anemia Problem List - Problems (1) Liver lesion Assessment/Plan: * CEA-->707,CA-19.9---> 14,400 * These values are virtually diagnostic of malignancy. * HCP proxy has been advised against biopsy. (2) Anemia Assessment/Plan: Anemia- low Fe++, Low TIBC, elevated ferritin compatible with chronic disease * will give procrit today Visit type - Emergency Visit Emergency Visit: Yes ED Registration Date: 06/12/18 Care time: The patient presented to the Emergency Department on the above date and was hospitalized for further evaluation of their emergent condition. - New Patient This patient is new to me today: Yes Date on this admission: 07/01/18 - Critical Care Critical Care patient: No
[2018-07-01] MEDS ORDERED: EPOETIN ALFA 2,000 UNIT/1 ML VIAL SQ ONE (16:00)
[2018-07-01] MEDS: KCL 10 MEQ IVPB 10 MEQ/100 ML INFUS.BAG IVPB SCH ×3 (17:34→20:44)
[2018-07-01] MEDS ORDERED: AMINO ACIDS 4.25%/D5W 1,000 ML IV SCH (19:00)
--- NOTE | 2018-07-02 03:13 | RAPID ---
Physical Examination Vital Signs: Vital Signs Per nurse, O2 sat ~60s% BP 105/62 Labs: CBC, BMP 07/01/18 10:00 07/01/18 10:00 Rapid Response - Rapid Response Assessment: Rapid response called in patient room. As per nurse, pt desatting in the 60s on Ventimask. Upon initial presentation, pt unresponsive. On exam, pupils unresponsive, carotid pulses palpable bradycardic, course lung sounds bilaterally, poor radial pulses, cold b/l extremities. Transferred immediately to ICU for intubation. Health care proxy present at time of rapid response. HCP wants full code, but no blood transfusions. Pt transferred to ICU and intubated successfully. Chuck vomit seen during intubation. Atropine given. CBC/CMP/lactate ordered. F/u CXR pending. Will signout to day team.
--- NOTE | 2018-07-02 03:21 | CONSULT ---
Consultation: REQUESTING PROVIDER: CONSULT REQUEST: We have been asked to medically evaluate this patient for ( specify). HISTORY OF PRESENT ILLNESS: This is a 72 yo M [facility] Resident with PMH for parkinsons disease, likely metastatic liver malignancy, CVA (2012; R sided residual weakness), HTN, HLD, DM, osteomyelitis, anemia, COPD and CAD, admitted due to lethargy and diminished appetite, found to be severely septic due to Gram neg ESBL bacteremia from chronic decubitus ulcer source. patient is POD 2 s/p PEG, today was the first day of feeds, had home hospice ordered and was up fpr transfer until he was found hypoxic the morning of 07/01 59% with worsened lethargy, was placed on ventimask. He is schronically anemic but proxy refusing transfusions ( [employer]), was also hypokalemic 07/01 AM 2.9 (now s/p 30 meq IV KCL) and made a trop 0.13, (presumably demand) w/o evidence of ischemia on EKG. RR called at 3 am today for acute hypoxic respiratiry failure (no sat detected) and unresponsiveness. It is uncertain how long patient has been hypoxic since there is no continuous pulse ox monitoring on 7w. At baseline he opened his eyes , and moaned, but when discovered had fixed unresponsive pupils. Patient was transferred to ICU and intubated, with kimberlee vomitus suctioned out of airway. during intubation patient experienced an episode of bradycardia 30's and received one dose of atropine. His BP remained adequate and HR improved to 117. O2 sat after intubation 100% on 100 % fio2, 400/12/5. REVIEW OF SYSTEMS: unable to obtain PHYSICAL EXAMINATION Vital Signs - 24 hr 07/01/18 07/01/18 07/01/18 05:28 08:30 09:00 Temperature 98.2 F 97.7 F Pulse Rate 86 89 Respiratory 20 20 20 Rate Blood Pressure 143/98 110/57 L O2 Sat by Pulse 96 Oximetry (%) 07/01/18 07/01/18 07/01/18 14:26 18:20 21:00 Temperature 97.8 F 98.1 F Pulse Rate 83 101 H 90 Respiratory 20 20 20 Rate Blood Pressure 150/71 119/61 129/72 O2 Sat by Pulse 96 Oximetry (%) 07/01/18 07/02/18 07/02/18 21:30 01:48 02:32 Temperature 97.4 F L Pulse Rate 92 H 90 88 Respiratory 20 Rate Blood Pressure 113/50 L O2 Sat by Pulse 93 L 96 Oximetry (%) GENERAL: unresponsive HEAD: Normal with no signs of trauma. EYES: Pupils equal 2mm, round, fixed, not responsive to light EARS, NOSE, THROAT: Moist mucous membranes. NECK: supple without JVD LUNGS: diffusely coarse breath sounds HEART: tachy rate and reg rhythm, normal S1 and S2 ABDOMEN: Soft, not distended, globally decreased bowel sounds, PEG in place MUSCULOSKELETAL: No bony deformities UPPER EXTREMITIES: 1+ pulses, warm, well-perfused. No peripheral edema. LOWER EXTREMITIES: 1+ pulses, warm, well-perfused. No peripheral edema. NEUROLOGICAL: fixed pupils as above, absent corneal reflex, not responsive to pain GCS 3 PSYCHIATRIC: unresponsive SKIN: Warm, dry Laboratory Results - last 24 hr 07/01/18 07/01/18 07/01/18 10:00 10:00 23:28 WBC 10.2 H RBC 3.08 L Hgb 8.2 L Hct 25.6 L MCV 83.2 MCH 26.7 MCHC 32.1 RDW 23.4 H Plt Count 78 L D MPV 9.0 Sodium 122 L Potassium 2.9 L* Chloride 94 L Carbon Dioxide 13 L Anion Gap 15 BUN 93 H Creatinine 1.0 Creat Clearance w eGFR > 60 POC Glucometer 169 Random Glucose 157 H Calcium 8.2 L Phosphorus 2.8 Magnesium 2.0 Total Bilirubin 2.1 H AST 454 H ALT 54 Alkaline Phosphatase 454 H Creatine Kinase 580 H Creatine Kinase Index 0.2 CK-MB (CK-2) 1.5 Troponin I 0.13 H Total Protein 6.4 Albumin 1.3 L Active Medications Generic Name Dose Route Start Last Admin Trade Name Freq PRN Reason Stop Dose Admin Acetaminophen 975 mg 06/16/18 15:13 Tylenol - PO Q8H PRN PAIN OR FEVER Ascorbic Acid 500 mg 06/13/18 22:00 07/01/18 23:09 Vitamin C - PO 500 mg BID JEF Administration Doxycycline Hyclate 100 mg 06/18/18 18:00 07/01/18 17:10 Vibramycin - PO 100 mg BID@1000,1800 JEF Administration Folic Acid 1 mg 06/15/18 10:00 10/11/18 10:31 Folic Acid - PO 1 mg DAILY JEF Administration IV Flush 8 ml 06/21/18 09:17 Picc Line Flush IVPUSH PRN PRN Protocol Amino Acids 1,000 mls @ 84 mls/hr 06/26/18 16:15 07/01/18 17:10 Clinimix - IV 84 mls/hr Q12H JEF Administration Metoprolol Tartrate 5 mg 06/22/18 11:14 Lopressor Injection - IVPB Q4H PRN HYPERTENSION Multi-Ingredient Ointment 1 applic 06/13/18 22:00 07/01/18 23:09 Zinc Oxide TP 1 applic BID JEF Administration Polyethylene Glycol 17 gm 06/14/18 10:00 07/01/18 10:31 Miralax (For Bowel Prep) - PO 17 gm DAILY JEF Administration Sodium Chloride 2 spray 06/19/18 11:32 06/19/18 13:41 [place] Nasal [place] - NS 2 spray TID PRN Administration NASAL CONGESTION Zinc Sulfate 220 mg 06/21/18 10:00 07/01/18 10:31 Orazinc - PO 220 mg DAILY JEF Administration ASSESSMENT/PLAN: This is a 72 yo M [facility] Resident with PMH for parkinsons disease, likely metastatic liver malignancy, CVA (2012; R sided residual weakness), HTN, HLD, IDDM, osteomyelitis, anemia, COPD and CAD, admitted due to lethargy and diminished appetite, found to be severely septic due to Gram neg ESBL bacteremia from chronic decubitus ulcer source, POD 2 s/p PEG, In ICU s/p RR for hypoxia. Acute hypoxic respiratory failure secondary to aspiration Unresponsive with fixed pupils, posibly anoxic brain injury GCS 3 severe sepsis due to ESBL bacteremia sacral ulcer source pod s/p PEG likely metastatic liver malignancy Anemia parkinsons COPD IDDM CAD HTN HLD -intubated, 400/12/5/100% satting 100%; f/u abg and adjust vent settings for O2 sat >92% -not sedated due to unresponsiveness during code, reassess neuro status q2 h -poor candidate for cooling due to active infection and poor baseline mental status -continues to vomit; frequent suctioning -f/u stat labs -stat EKG sinus tachy s/p atropine 130 bpm -hold feeds -continue doxycysline -IV hydration NS @ 100 -continue lopressor 5 q 4 prn -ISS, BGM q4h gluc goal 140-180 -continue procrit -liver biopsy oh hold -proxy at bedside: Full code Dispo: We will continue to follow the patient. Thank you for this consultative opportunity. Problem List - Problems (1) Anoxic brain injury Code(s): G93.1 - ANOXIC BRAIN DAMAGE, NOT ELSEWHERE CLASSIFIED (2) Acute respiratory failure with hypoxia Code(s): J96.01 - ACUTE RESPIRATORY FAILURE WITH HYPOXIA (3) Aspiration into airway Code(s): T17.908A - UNSP FB IN RESP TRACT, PART UNSP CAUSING OTH INJURY, INIT (4) CAD (coronary artery disease) Code(s): I25.10 - ATHSCL HEART DISEASE OF [place] CORONARY ARTERY W/O ANG PCTRS (5) HTN (hypertension) Code(s): I10 - ESSENTIAL (PRIMARY) HYPERTENSION (6) Diabetes Code(s): E11.9 - TYPE 2 DIABETES MELLITUS WITHOUT COMPLICATIONS (7) Abnormal liver enzymes Code(s): R74.8 - ABNORMAL LEVELS OF OTHER SERUM ENZYMES (8) Dysphagia Code(s): R13.10 - DYSPHAGIA, UNSPECIFIED (9) Liver lesion Code(s): K76.9 - LIVER DISEASE, UNSPECIFIED (10) Sacral decubitus ulcer, stage IV Code(s): L89.154 - PRESSURE ULCER OF SACRAL REGION, STAGE 4 (11) Sepsis Code(s): A41.9 - SEPSIS, UNSPECIFIED ORGANISM Qualifiers: Sepsis type: sepsis due to unspecified organism Qualified Code(s): A41.9 - Sepsis, unspecified organism (12) Anemia Code(s): D64.9 - ANEMIA, UNSPECIFIED (13) Bacteremia Code(s): R78.81 - BACTEREMIA (14) Normocytic normochromic anemia Code(s): D64.9 - ANEMIA, UNSPECIFIED (15) Sacral decubitus ulcer, stage III Code(s): L89.153 - PRESSURE ULCER OF SACRAL REGION, STAGE 3 Visit type - Emergency Visit Emergency Visit: Yes ED Registration Date: 06/12/18 Care time: The patient presented to the Emergency Department on the above date and was hospitalized for further evaluation of their emergent condition. - New Patient This patient is new to me today: Yes Date on this admission: 07/02/18 - Critical Care Critical Care patient: Yes Total Critical Care Time (in minutes): 45 Critical Care Statement: The care of this patient involved high complexity decision making to prevent further life threatening deterioration of the patient 's condition and/or to evaluate & treat vital organ system(s) failure or risk of failure.
--- NOTE | 2018-07-02 03:29 | CONSULT ---
Consult - text type - Consultation Consultation Note: Called to intubate. Pt arrived from floors to ICU, unresponsive and with an O2 sat in 40s. Started to ambubag, and administered rocuronium 50mg. Mac3 blade used - ETT size 8.0 placed easily, with CO2 return. Gastric contents visualized in oropharnx, and ETT suctioned once pt was intubated. Pt placed on vent
[2018-07-02] MEDS ORDERED: SODIUM CHLORIDE 1,000 ML IV SCH ×5 (04:15→17:36)
[2018-07-02 04:23] LABS: ARTERIAL BLD GAS O2 SATURATION 87.7 % (90-98.9); ARTERIAL BLOOD GAS PCO2 58.8 mmHg (35-45); ARTERIAL BLOOD GAS PO2 82.7 mmHg (70-100)
[2018-07-02 04:24] LABS: BASO % 0.6 % (0-2.0); EOS % 0.4 % (0-4.5); HEMATOCRIT 26.5 % (35.4-49); HEMOGLOBIN 8.1 GM/dL (11.7-16.9); LYMPH % 19.5 % (8-40); MCH 26.5 pg (25.7-33.7); MCHC 30.4 g/dl (32.0-35.9); MEAN CELL VOLUME 87.1 fl (80-96); MEAN PLT VOLUME 9.2 fl (7.5-11.1); MONO % 3.7 % (3.8-10.2); NEUT % 75.8 % (42.8-82.8); PLATELET COUNT 90 K/MM3 (134-434); RBC 3.04 M/mm3 (4.00-5.60); RDW 24.2 % (11.9-15.9); WHITE BLOOD COUNT 16.3 K/mm3 (4.0-10.0)
[2018-07-02] MEDS ORDERED: INSULIN SLIDING SCALE (NOVOLOG) 1 VIAL SQ SCH (04:30)
[2018-07-02] MEDS: AMINO ACIDS 4.25%/D5W 1,000 ML IV SCH (04:35)
[2018-07-02 04:43] LABS: ARTERIAL BLOOD GAS BASE EXCESS -19.3 meq/l (-2-2); ARTERIAL BLOOD GAS pH 6.94 (7.35-7.45)
[2018-07-02] MEDS ORDERED: SODIUM BICARBONATE 8.4% 50 MEQ/50 ML DISP.SYRIN IVPUSH ONE ×2 (04:48→17:36)
[2018-07-02] MEDS ORDERED: SODIUM BICARBONATE 8.4% - 50 ML ONE (05:08)
[2018-07-02] MEDS ORDERED: SODIUM BICARBONATE 8.4% 50 MEQ/50 ML VIAL ONE (05:08)
[2018-07-02 05:49] LABS: ACANTHOCYTES 1+; ANISOCYTOSIS 3+; MACROCYTOSIS 0; PLATELET ESTIMATE DECREASED
[2018-07-02 05:53] LABS: ALBUMIN 1.4 g/dl (3.4-5.0); ALK PHOS 590 U/L (45-117); ANION GAP 15 MMOL/L (8-16); BILIRUBIN,TOTAL 2.6 mg/dL (0.2-1); BLOOD UREA NITROGEN 97 mg/dL (7-18); CALCIUM 8.4 mg/dL (8.5-10.1); CHLORIDE 94 mmol/L (98-107); CO2 13 mmol/L (21-32); CREATININE 1.2 mg/dL (0.55-1.3); GLUCOSE,RANDOM 190 mg/dL (74-106); SGOT/AST 328 U/L (15-37); SGPT/ALT 47 U/L (13-61); SODIUM 122 mmol/L (136-145); TOT PROT 6.4 g/dl (6.4-8.2)
[2018-07-02] MEDS: INSULIN SLIDING SCALE (NOVOLOG) 1 VIAL SQ SCH ×5 (06:04→22:24)
[2018-07-02] MEDS ORDERED: SODIUM CHLORIDE 500 ML IV STA (06:47)
[2018-07-02 07:05] LABS: PHOSPHOROUS 4.8 mg/dL (2.5-4.9)
[2018-07-02 07:53] LABS: ALBUMIN 1.3 g/dl (3.4-5.0); ALK PHOS 566 U/L (45-117); ANION GAP 16 MMOL/L (8-16); BILIRUBIN,TOTAL 2.7 mg/dL (0.2-1); BLOOD UREA NITROGEN 97 mg/dL (7-18); CALCIUM 8.4 mg/dL (8.5-10.1); CHLORIDE 94 mmol/L (98-107); CO2 14 mmol/L (21-32); CREATININE 1.1 mg/dL (0.55-1.3); GLUCOSE,RANDOM 164 mg/dL (74-106); POTASSIUM 3.9 mmol/L (3.5-5.1); SGOT/AST 310 U/L (15-37); SGPT/ALT 43 U/L (13-61); SODIUM 124 mmol/L (136-145)
[2018-07-02] MEDS: ZINC OXIDE 20% TOPICAL OINTMENT 30 GM TUBE TP SCH ×2 (09:00→22:01)
--- NOTE | 2018-07-02 09:00 | PN ---
Progress Note, Physician History of Present Illness: This is a 72 yo M [facility] Resident with PMH for parkinsons disease, likely metastatic liver malignancy, CVA (2012; R sided residual weakness), HTN, HLD, IDDM, osteomyelitis, anemia, COPD and CAD, admitted due to lethargy and diminished appetite, found to be severely septic due to Gram neg ESBL bacteremia from chronic decubitus ulcer source, POD 2 s/p PEG, In ICU Intubated - Current Medication List Current Medications: Active Medications Acetaminophen (Ofirmev Injection -) 1,000 mg IVPB Q6H PRN PRN Reason: FEVER Ascorbic Acid (Vitamin C -) 500 mg PO BID [facility] Last Admin: 07/01/18 23:09 Dose: 500 mg Doxycycline Hyclate (Vibramycin -) 100 mg PO BID@1000,1800 [facility] Last Admin: 07/01/18 17:10 Dose: 100 mg Folic Acid (Folic Acid -) 1 mg PO DAILY [facility] Last Admin: 07/01/18 10:31 Dose: 1 mg IV Flush (Picc Line Flush) 8 ml IVPUSH PRN PRN PRN Reason: Protocol Sodium Chloride (Normal Saline -) 1,000 mls @ 150 mls/hr IV ASDIR [facility] Last Admin: 07/02/18 06:55 Dose: 150 mls/hr Insulin Aspart (Novolog Vial Sliding Scale -) 1 vial SQ Q4HPO [facility]; Protocol Last Admin: 07/02/18 06:04 Dose: Not Given Metoprolol Tartrate (Lopressor Injection -) 5 mg IVPB Q4H PRN PRN Reason: HYPERTENSION Multi-Ingredient Ointment (Zinc Oxide) 1 applic TP BID [facility] Last Admin: 07/01/18 23:09 Dose: 1 applic Sodium Chloride ([place] Nasal [place] -) 2 spray NS TID PRN PRN Reason: NASAL CONGESTION Last Admin: 06/19/18 13:41 Dose: 2 spray Zinc Sulfate (Orazinc -) 220 mg PO DAILY [facility] Last Admin: 07/01/18 10:31 Dose: 220 mg - Objective Vital Signs: Vital Signs Temperature 97.4 F L 07/02/18 01:48 Pulse Rate 108 H 07/02/18 04:00 Respiratory Rate 27 H 07/02/18 08:20 Blood Pressure 110/60 07/02/18 04:00 O2 Sat by Pulse Oximetry (%) 96 10/12/18 02:32 Cardiovascular: Yes: S1, S2 Respiratory: Yes: Mechanically Ventilated Gastrointestinal: Yes: Normal Bowel Sounds, Soft. No: Tenderness Labs: CBC, BMP 07/02/18 04:02 07/02/18 05:30 INR, PTT INR 1.26 (0.83-1.09) H 06/23/18 10:15 Problem List - Problems (1) Acute respiratory failure with hypoxia Assessment/Plan: -intubated, 400/12/5/100% satting 100%; f/u abg and adjust vent settings for O2 sat >92% -hold feeds -continue doxycysline -IV hydration NS @ 100 -continue lopressor 5 q 4 prn -proxy at bedside: Full code Code(s): J96.01 - ACUTE RESPIRATORY FAILURE WITH HYPOXIA (2) Metabolic encephalopathy Assessment/Plan: Unresponsive with fixed pupils, posibly anoxic brain injury GCS 3 Code(s): G93.41 - METABOLIC ENCEPHALOPATHY (3) 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 (4) Sacral decubitus ulcer Assessment/Plan: -wound care Code(s): L89.159 - PRESSURE ULCER OF SACRAL REGION, UNSPECIFIED STAGE (5) Hyponatremia Assessment/Plan: -NS -RENAL CONSULT Code(s): E87.1 - HYPO-OSMOLALITY AND HYPONATREMIA (6) Sepsis Assessment/Plan: -ABX -ID FOLLOW UP Code(s): A41.9 - SEPSIS, UNSPECIFIED ORGANISM Qualifiers: Sepsis type: sepsis due to unspecified organism Qualified Code(s): A41.9 - Sepsis, unspecified organism (7) Anemia Assessment/Plan: -NO TRANSFUSION DUE TO AMISH BELIEFS Code(s): D64.9 - ANEMIA, UNSPECIFIED
[2018-07-02 10:15] LABS: ARTERIAL BLOOD GAS BASE EXCESS -13.4 meq/l (-2-2); ARTERIAL BLOOD GAS PCO2 28.3 mmHg (35-45); ARTERIAL BLOOD GAS pH 7.26 (7.35-7.45)
[2018-07-02 10:18] LABS: ALLENS TEST POSITIVE
[2018-07-02] MEDS ORDERED: PT OWN MED DRAWER 7, Y5N ONE ×3 (10:37→21:58)
[2018-07-02] MEDS: FOLIC ACID 1 MG TABLET (FP) PO SCH (10:40)
[2018-07-02] MEDS: ZINC SULFATE 220 MG CAPSULE (FP) PO SCH (10:40)
[2018-07-02] MEDS: ASCORBIC ACID 500 MG TABLET (FP) PO SCH ×2 (10:40→22:01)
[2018-07-02] MEDS: DOXYCYCLINE HYCLATE 100 MG CAPSULE PO SCH ×2 (10:40→18:54)
[2018-07-02] MEDS ORDERED: SODIUM CHLORIDE 0.9% 500 ML INFUS.BAG IV ONE (10:42)
--- NOTE | 2018-07-02 11:26 | PN ---
Teaching Attending Note Name of Resident: Vern Alston ATTENDING PHYSICIAN STATEMENT I saw and evaluated the patient. I reviewed the resident's note and discussed the case with the resident. I agree with the resident's findings and plan as documented. SUBJECTIVE: Patient seen and examined in the ICU. Events from overnight noted. Intubated and poorly responsive. AC Mode of vent, 100% FiO2. Pupils still fixed and dilated. Non-specific response to noxious stimuli. GENERAL: Intubated, poorly responsive HEAD: Normal with no signs of trauma. EYES: Fixed, dilated pupils EARS, NOSE, THROAT: Moist mucous membranes. NECK: supple without JVD LUNGS: diffusely coarse breath sounds HEART: tachy rate and reg rhythm, normal S1 and S2 ABDOMEN: Soft, not distended, globally decreased bowel sounds, PEG in place MUSCULOSKELETAL: No bony deformities UPPER EXTREMITIES: 1+ pulses, warm, well-perfused. No peripheral edema. LOWER EXTREMITIES: 1+ pulses, warm, well-perfused. No peripheral edema. NEUROLOGICAL: poorly responsive, pupils fixed and dilated PSYCHIATRIC: unresponsive SKIN: Warm, dry Laboratory Results - last 24 hr 07/01/18 07/01/18 07/02/18 10:00 23:28 03:06 WBC RBC Hgb Hct MCV MCH MCHC RDW Plt Count MPV Absolute Neuts (auto) Neutrophils % Neutrophils % (Manual) Band Neutrophils % Lymphocytes % Lymphocytes % (Manual) Monocytes % Monocytes % (Manual) Eosinophils % Eosinophils % (Manual) Basophils % Basophils % (Manual) Myelocytes % (Man) Promyelocytes % (Man) Blast Cells % (Manual) Nucleated RBC % Metamyelocytes Hypochromia Platelet Estimate Polychromasia Poikilocytosis Anisocytosis Microcytosis Macrocytosis Cogswell Cells Acanthocytes (Spur) Schistocytes Puncture Site ABG pH ABG pCO2 at Pt Temp ABG pO2 at Pt Temp ABG HCO3 ABG O2 Sat (Measured) ABG O2 Content ABG Base Excess Aly Test Oxygen Flow Rate Sodium Potassium Chloride Carbon Dioxide Anion Gap BUN Creatinine Creat Clearance w eGFR POC Glucometer 169 188 Random Glucose Lactic Acid Calcium Phosphorus 2.8 Magnesium 2.0 Total Bilirubin AST ALT Alkaline Phosphatase Creatine Kinase Creatine Kinase Index 0.2 CK-MB (CK-2) 1.5 Troponin I Total Protein Albumin 07/02/18 07/02/18 07/02/18 03:07 03:07 04:02 WBC RBC Hgb Hct MCV MCH MCHC RDW Plt Count MPV Absolute Neuts (auto) Neutrophils % Neutrophils % (Manual) Band Neutrophils % Lymphocytes % Lymphocytes % (Manual) Monocytes % Monocytes % (Manual) Eosinophils % Eosinophils % (Manual) Basophils % Basophils % (Manual) Myelocytes % (Man) Promyelocytes % (Man) Blast Cells % (Manual) Nucleated RBC % Metamyelocytes Hypochromia Platelet Estimate Polychromasia Poikilocytosis Anisocytosis Microcytosis Macrocytosis [place]og[place]ell Cells Acanthocytes (Spur) Schistocytes Puncture Site No Result Required. ABG pH 6.94 L* ABG pCO2 at Pt Temp 58.8 H ABG pO2 at Pt Temp 82.7 ABG HCO3 11.9 L* ABG O2 Sat (Measured) 87.7 L ABG O2 Content 10.1 L ABG Base Excess -19.3 L* Aly Test No Result Required. Oxygen Flow Rate No Result Required. Sodium 122 L Potassium 4.0 Chloride 94 L Carbon Dioxide 13 L Anion Gap 15 BUN 97 H Creatinine 1.2 Creat Clearance w eGFR 59.18 POC Glucometer Random Glucose 190 H Lactic Acid 6.8 H* Calcium 8.4 L Phosphorus Magnesium Total Bilirubin 2.6 H AST 328 H ALT 47 Alkaline Phosphatase 590 H Creatine Kinase 669 H Creatine Kinase Index 0.2 CK-MB (CK-2) 1.7 Troponin I 0.06 H Total Protein 6.4 Albumin 1.4 L 07/02/18 07/02/18 07/02/18 04:02 05:30 05:30 WBC 16.3 H RBC 3.04 L Hgb 8.1 L Hct 26.5 L MCV 87.1 MCH 26.5 MCHC 30.4 L RDW 24.2 H Plt Count 90 L MPV 9.2 Absolute Neuts (auto) 12.4 H Neutrophils % 75.8 Neutrophils % (Manual) 79.6 Band Neutrophils % 4.1 Lymphocytes % 19.5 D Lymphocytes % (Manual) 14.3 D Monocytes % 3.7 L Monocytes % (Manual) 1 L Eosinophils % 0.4 Eosinophils % (Manual) 0.0 D Basophils % 0.6 Basophils % (Manual) 0.0 Myelocytes % (Man) 1 D Promyelocytes % (Man) 0 Blast Cells % (Manual) 0 Nucleated RBC % 0 Metamyelocytes 0 D Hypochromia 2+ Platelet Estimate Decreased Polychromasia 2+ Poikilocytosis 2+ Anisocytosis 3+ Microcytosis 2+ Macrocytosis 0 Cogswell Cells 1+ Acanthocytes (Spur) 1+ Schistocytes 1+ Puncture Site ABG pH ABG pCO2 at Pt Temp ABG pO2 at Pt Temp ABG HCO3 ABG O2 Sat (Measured) ABG O2 Content ABG Base Excess Aly Test Oxygen Flow Rate Sodium Cancelled Potassium Cancelled Chloride Cancelled Carbon Dioxide Cancelled Anion Gap Cancelled BUN Cancelled Creatinine Cancelled Creat Clearance w eGFR Cancelled POC Glucometer Random Glucose Cancelled Lactic Acid 6.0 H* Calcium Cancelled Phosphorus Cancelled Magnesium Cancelled Total Bilirubin Cancelled AST Cancelled ALT Cancelled Alkaline Phosphatase Cancelled Creatine Kinase Creatine Kinase Index CK-MB (CK-2) Troponin I Total Protein Cancelled Albumin Cancelled 07/02/18 07/02/18 05:30 10:11 WBC RBC Hgb Hct MCV MCH MCHC RDW Plt Count MPV Absolute Neuts (auto) Neutrophils % Neutrophils % (Manual) Band Neutrophils % Lymphocytes % Lymphocytes % (Manual) Monocytes % Monocytes % (Manual) Eosinophils % Eosinophils % (Manual) Basophils % Basophils % (Manual) Myelocytes % (Man) Promyelocytes % (Man) Blast Cells % (Manual) Nucleated RBC % Metamyelocytes Hypochromia Platelet Estimate Polychromasia Poikilocytosis Anisocytosis Microcytosis Macrocytosis Cogswell Cells Acanthocytes (Spur) Schistocytes Puncture Site Right radial ABG pH 7.26 L D ABG pCO2 at Pt Temp 28.3 L D ABG pO2 at Pt Temp 331.0 H* D ABG HCO3 12.2 L* ABG O2 Sat (Measured) 100.0 H* ABG O2 Content 11.6 L ABG Base Excess -13.4 L* Aly Test Positive Oxygen Flow Rate Yes Sodium 124 L Potassium 3.9 Chloride 94 L Carbon Dioxide 14 L Anion Gap 16 BUN 97 H Creatinine 1.1 Creat Clearance w eGFR > 60 POC Glucometer Random Glucose 164 H Lactic Acid Calcium 8.4 L Phosphorus 4.8 Magnesium 2.0 Total Bilirubin 2.7 H AST 310 H ALT 43 Alkaline Phosphatase 566 H Creatine Kinase Creatine Kinase Index CK-MB (CK-2) Troponin I Total Protein 6.0 L Albumin 1.3 L Problem List - Problems (1) Anoxic brain injury Code(s): G93.1 - ANOXIC BRAIN DAMAGE, NOT ELSEWHERE CLASSIFIED (2) Acute respiratory failure with hypoxia Code(s): J96.01 - ACUTE RESPIRATORY FAILURE WITH HYPOXIA (3) Aspiration into airway Code(s): T17.908A - UNSP FB IN RESP TRACT, PART UNSP CAUSING OTH INJURY, INIT (4) CAD (coronary artery disease) Code(s): I25.10 - ATHSCL HEART DISEASE OF [place] CORONARY ARTERY W/O ANG PCTRS (5) HTN (hypertension) Code(s): I10 - ESSENTIAL (PRIMARY) HYPERTENSION (6) Diabetes Code(s): E11.9 - TYPE 2 DIABETES MELLITUS WITHOUT COMPLICATIONS (7) Abnormal liver enzymes Code(s): R74.8 - ABNORMAL LEVELS OF OTHER SERUM ENZYMES (8) Dysphagia Code(s): R13.10 - DYSPHAGIA, UNSPECIFIED (9) Liver lesion Code(s): K76.9 - LIVER DISEASE, UNSPECIFIED (10) Sacral decubitus ulcer, stage IV Code(s): L89.154 - PRESSURE ULCER OF SACRAL REGION, STAGE 4 (11) Sepsis Code(s): A41.9 - SEPSIS, UNSPECIFIED ORGANISM Qualifiers: Sepsis type: sepsis due to unspecified organism Qualified Code(s): A41.9 - Sepsis, unspecified organism (12) Anemia Code(s): D64.9 - ANEMIA, UNSPECIFIED (13) Bacteremia Code(s): R78.81 - BACTEREMIA (14) Normocytic normochromic anemia Code(s): D64.9 - ANEMIA, UNSPECIFIED (15) Sacral decubitus ulcer, stage III Code(s): L89.153 - PRESSURE ULCER OF SACRAL REGION, STAGE 3 ASSESSMENT/PLAN: Acute hypoxic respiratory failure secondary to aspiration NERY Sepsis due to ESBL bacteremia / sacral ulcer S/P PEG Suspected Metastatic liver CA Anemia parkinsons COPD IDDM CAD HTN HLD Vent settings Follow Neuro ABX per ID He was a poor candidate for cooling due to active infection NGT decompression IVF Glycemic control Need GOC discussions with family as overall prognosis appears grave for meaningful recovery Dr Bermudez Critical care time spent in reviewing chart, evaluating patient and formulating plan - 36 minutes.
--- NOTE | 2018-07-02 12:11 | PN ---
Progress Note (short form) - Note Progress Note: Patient seen and examined Health care proxy at bedside and still wants to pursue aggressive intervention Last Vital Signs Temp Pulse Resp BP Pulse Ox 97.4 F L 79 12 106/60 96 07/02/18 01:48 07/02/18 10:52 07/02/18 10:52 07/02/18 10:52 07/02/18 02:32 ?pupillary response Ventilatory support Lungs- diminished sounds Cor-RSR ABD-soft, feeding tube Aspiratio Ext- neg/scd CBC, BMP 07/02/18 04:02 INR, PTT INR 1.26 (0.83-1.09) H 06/23/18 10:15 07/02/18 05:30 Current Medications Generic Name Dose Route Start Last Admin Trade Name Freq PRN Reason Stop Dose Admin Acetaminophen 1,000 mg 07/02/18 04:52 Ofirmev Injection - IVPB Q6H PRN FEVER Ascorbic Acid 500 mg 06/13/18 22:00 07/02/18 10:40 Vitamin C - PO 500 mg BID JEF Administration Doxycycline Hyclate 100 mg 06/18/18 18:00 07/02/18 10:40 Vibramycin - PO 100 mg BID@1000,1800 JEF Administration Folic Acid 1 mg 06/15/18 10:00 07/02/18 10:40 Folic Acid - PO 1 mg DAILY JEF Administration IV Flush 8 ml 06/21/18 09:17 Picc Line Flush IVPUSH PRN PRN Protocol Sodium Chloride 1,000 mls @ 150 mls/hr 07/02/18 06:48 07/02/18 06:55 Normal Saline - IV 150 mls/hr ASDIR JEF Administration Insulin Aspart 1 vial 07/02/18 05:00 07/02/18 06:04 Novolog Vial Sliding Scale - SQ Not Given Q4HPO JEF Protocol Multi-Ingredient Ointment 1 applic 06/13/18 22:00 07/01/18 23:09 Zinc Oxide TP 1 applic BID JEF Administration Sodium Chloride 2 spray 06/19/18 11:32 06/19/18 13:41 [place] Nasal [place] - NS 2 spray TID PRN Administration NASAL CONGESTION Zinc Sulfate 220 mg 06/21/18 10:00 07/02/18 10:40 Orazinc - PO 220 mg DAILY JEF Administration Impression: Likely pancreatic ca with liver mets Acute hypoxic respiratory failure Aspiration Ventilatory support Anemia Thrombocytopenia GOC still being discussed.
--- NOTE | 2018-07-02 14:32 | PN ---
Progress Note, Physician History of Present Illness: events noted patient probably aspirated ended up being intubated wbc has jumped up now in icu intubated and sedated feeding on - Current Medication List Current Medications: Active Medications Acetaminophen (Ofirmev Injection -) 1,000 mg IVPB Q6H PRN PRN Reason: FEVER Ascorbic Acid (Vitamin C -) 500 mg PO BID [facility] Last Admin: 07/02/18 10:40 Dose: 500 mg Doxycycline Hyclate (Vibramycin -) 100 mg PO BID@1000,1800 [facility] Last Admin: 07/02/18 10:40 Dose: 100 mg Folic Acid (Folic Acid -) 1 mg PO DAILY [facility] Last Admin: 07/02/18 10:40 Dose: 1 mg IV Flush (Picc Line Flush) 8 ml IVPUSH PRN PRN PRN Reason: Protocol Sodium Chloride (Normal Saline -) 1,000 mls @ 100 mls/hr IV ASDIR [facility] Insulin Aspart (Novolog Vial Sliding Scale -) 1 vial SQ Q4HPO [facility]; Protocol Last Admin: 07/02/18 12:59 Dose: Not Given Multi-Ingredient Ointment (Zinc Oxide) 1 applic TP BID [facility] Last Admin: 07/01/18 23:09 Dose: 1 applic Sodium Chloride ([place] Nasal [place] -) 2 spray NS TID PRN PRN Reason: NASAL CONGESTION Last Admin: 06/19/18 13:41 Dose: 2 spray Zinc Sulfate (Orazinc -) 220 mg PO DAILY [facility] Last Admin: 07/02/18 10:40 Dose: 220 mg - Objective Vital Signs: Vital Signs Temperature 97.4 F L 07/02/18 01:48 Pulse Rate 81 07/02/18 12:00 Respiratory Rate 27 H 07/02/18 12:28 Blood Pressure 107/41 L 07/02/18 12:00 O2 Sat by Pulse Oximetry (%) 96 07/02/18 02:32 Constitutional: Yes: Other Cardiovascular: Yes: Pulse Irregular Respiratory: Yes: Intubated, Mechanically Ventilated, Rhonchi Gastrointestinal: Yes: Normal Bowel Sounds, Soft, Other (peg in place) Musculoskeletal: Yes: Other Extremities: Yes: WNL Wound/Incision: Yes: Other (sacral decubitus) Neurological: Yes: Other Psychiatric: Yes: Other Labs: CBC, BMP 07/02/18 04:02 07/02/18 05:30 INR, PTT INR 1.26 (0.83-1.09) H 06/23/18 10:15 - ....Imaging Chest X-ray: Report Reviewed, Image Reviewed Assessment/Plan patient with multiple medical problems coming in with sepsis uti and bacteremia with elevated liver enzymes and fever nimisha gm negative bacteremia wound infection dm sepsis uti 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 (3) Abnormal liver enzymes Code(s): R74.8 - ABNORMAL LEVELS OF OTHER SERUM ENZYMES (4) Sacral decubitus ulcer, stage IV Code(s): L89.154 - PRESSURE ULCER OF SACRAL REGION, STAGE 4 (5) Sepsis Code(s): A41.9 - SEPSIS, UNSPECIFIED ORGANISM Qualifiers: Sepsis type: sepsis due to unspecified organism Qualified Code(s): A41.9 - Sepsis, unspecified organism (6) Anemia Code(s): D64.9 - ANEMIA, UNSPECIFIED (7) Bacteremia Code(s): R78.81 - BACTEREMIA (8) Fever Code(s): R50.9 - FEVER, UNSPECIFIED Qualifiers: Fever type: unspecified Qualified Code(s): R50.9 - Fever, unspecified (9) Basilic vein thrombosis Code(s): I82.619 - ACUTE EMBOLISM AND THROMBOSIS OF SUPERFIC VN UNSP UP EXTREM plan continue doxy will add meropenam suctioning rest as per icu nutrition patients prognosis is guarded cc 40 min
[2018-07-02] MEDS: MEROPENEM 1 GM in DEXTROSE 5%-WATER 100 ML IVPB SCH ×2 (15:48→17:29)
[2018-07-02 15:58] LABS: ANION GAP 17 MMOL/L (8-16); BLOOD UREA NITROGEN 102 mg/dL (7-18); CALCIUM 7.9 mg/dL (8.5-10.1); CHLORIDE 94 mmol/L (98-107); CO2 12 mmol/L (21-32); CREATININE 1.1 mg/dL (0.55-1.3); GLUCOSE,RANDOM 109 mg/dL (74-106); SODIUM 123 mmol/L (136-145)
--- NOTE | 2018-07-02 16:35 | PN ---
Physical Exam: SUBJECTIVE: Patient seen and examined at bedside. Intubated, non-responsive. OBJECTIVE: Vital Signs Period Temp Pulse Resp BP Sys/[place] Pulse Ox Last 24 Hr 97.4 F-98.1 F 47-133 12-30 91-145/41-78 89-96 GENERAL: opens eyes to vigorous sternal rub HEAD: NC/AT EYES: pupils dilated, fixed, non-responsive EARS, NOSE, THROAT: Moist mucous membranes. NECK: supple without JVD LUNGS: diffusely coarse breath sounds HEART: tachycardic no m/r/g ABDOMEN: absent bowel sounds, soft, PEG in place MUSCULOSKELETAL: No bony deformities EXTREMITIES: 1+ pulses, warm, well-perfused. No peripheral edema NEUROLOGICAL: GCS 6 (eyes open to pain, intubated, flexion to pain), corneal reflex not assessed but noted to be absent in ICU intake evaluation SKIN: Warm, dry Laboratory Results - last 24 hr 07/01/18 07/02/18 07/02/18 23:28 03:06 03:07 WBC RBC Hgb Hct MCV MCH MCHC RDW Plt Count MPV Absolute Neuts (auto) Neutrophils % Neutrophils % (Manual) Band Neutrophils % Lymphocytes % Lymphocytes % (Manual) Monocytes % Monocytes % (Manual) Eosinophils % Eosinophils % (Manual) Basophils % Basophils % (Manual) Myelocytes % (Man) Promyelocytes % (Man) Blast Cells % (Manual) Nucleated RBC % Metamyelocytes Hypochromia Platelet Estimate Polychromasia Poikilocytosis Anisocytosis Microcytosis Macrocytosis [place] Cells Acanthocytes (Spur) Schistocytes Puncture Site ABG pH ABG pCO2 at Pt Temp ABG pO2 at Pt Temp ABG HCO3 ABG O2 Sat (Measured) ABG O2 Content ABG Base Excess Aly Test Oxygen Flow Rate Sodium 122 L Potassium 4.0 Chloride 94 L Carbon Dioxide 13 L Anion Gap 15 BUN 97 H Creatinine 1.2 Creat Clearance w eGFR 59.18 POC Glucometer 169 188 Random Glucose 190 H Lactic Acid Calcium 8.4 L Phosphorus Magnesium Total Bilirubin 2.6 H AST 328 H ALT 47 Alkaline Phosphatase 590 H Creatine Kinase 669 H Creatine Kinase Index 0.2 CK-MB (CK-2) 1.7 Troponin I 0.06 H Total Protein 6.4 Albumin 1.4 L 07/02/18 07/02/18 07/02/18 03:07 04:02 04:02 WBC 16.3 H RBC 3.04 L Hgb 8.1 L Hct 26.5 L MCV 87.1 MCH 26.5 MCHC 30.4 L RDW 24.2 H Plt Count 90 L MPV 9.2 Absolute Neuts (auto) 12.4 H Neutrophils % 75.8 Neutrophils % (Manual) 79.6 Band Neutrophils % 4.1 Lymphocytes % 19.5 D Lymphocytes % (Manual) 14.3 D Monocytes % 3.7 L Monocytes % (Manual) 1 L Eosinophils % 0.4 Eosinophils % (Manual) 0.0 D Basophils % 0.6 Basophils % (Manual) 0.0 Myelocytes % (Man) 1 D Promyelocytes % (Man) 0 Blast Cells % (Manual) 0 Nucleated RBC % 0 Metamyelocytes 0 D Hypochromia 2+ Platelet Estimate Decreased Polychromasia 2+ Poikilocytosis 2+ Anisocytosis 3+ Microcytosis 2+ Macrocytosis 0 [place] Cells 1+ Acanthocytes (Spur) 1+ Schistocytes 1+ Puncture Site No Result Required. ABG pH 6.94 L* ABG pCO2 at Pt Temp 58.8 H ABG pO2 at Pt Temp 82.7 ABG HCO3 11.9 L* ABG O2 Sat (Measured) 87.7 L ABG O2 Content 10.1 L ABG Base Excess -19.3 L* Aly Test No Result Required. Oxygen Flow Rate No Result Required. Sodium Potassium Chloride Carbon Dioxide Anion Gap BUN Creatinine Creat Clearance w eGFR POC Glucometer Random Glucose Lactic Acid 6.8 H* Calcium Phosphorus Magnesium Total Bilirubin AST ALT Alkaline Phosphatase Creatine Kinase Creatine Kinase Index CK-MB (CK-2) Troponin I Total Protein Albumin 07/02/18 07/02/18 07/02/18 05:30 05:30 05:30 WBC RBC Hgb Hct MCV MCH MCHC RDW Plt Count MPV Absolute Neuts (auto) Neutrophils % Neutrophils % (Manual) Band Neutrophils % Lymphocytes % Lymphocytes % (Manual) Monocytes % Monocytes % (Manual) Eosinophils % Eosinophils % (Manual) Basophils % Basophils % (Manual) Myelocytes % (Man) Promyelocytes % (Man) Blast Cells % (Manual) Nucleated RBC % Metamyelocytes Hypochromia Platelet Estimate Polychromasia Poikilocytosis Anisocytosis Microcytosis Macrocytosis [place] Cells Acanthocytes (Spur) Schistocytes Puncture Site ABG pH ABG pCO2 at Pt Temp ABG pO2 at Pt Temp ABG HCO3 ABG O2 Sat (Measured) ABG O2 Content ABG Base Excess Aly Test Oxygen Flow Rate Sodium Cancelled 124 L Potassium Cancelled 3.9 Chloride Cancelled 94 L Carbon Dioxide Cancelled 14 L Anion Gap Cancelled 16 BUN Cancelled 97 H Creatinine Cancelled 1.1 Creat Clearance w eGFR Cancelled > 60 POC Glucometer Random Glucose Cancelled 164 H Lactic Acid 6.0 H* Calcium Cancelled 8.4 L Phosphorus Cancelled 4.8 Magnesium Cancelled 2.0 Total Bilirubin Cancelled 2.7 H AST Cancelled 310 H ALT Cancelled 43 Alkaline Phosphatase Cancelled 566 H Creatine Kinase Creatine Kinase Index CK-MB (CK-2) Troponin I Total Protein Cancelled 6.0 L Albumin Cancelled 1.3 L 07/02/18 07/02/18 10:11 14:20 WBC RBC Hgb Hct MCV MCH MCHC RDW Plt Count MPV Absolute Neuts (auto) Neutrophils % Neutrophils % (Manual) Band Neutrophils % Lymphocytes % Lymphocytes % (Manual) Monocytes % Monocytes % (Manual) Eosinophils % Eosinophils % (Manual) Basophils % Basophils % (Manual) Myelocytes % (Man) Promyelocytes % (Man) Blast Cells % (Manual) Nucleated RBC % Metamyelocytes Hypochromia Platelet Estimate Polychromasia Poikilocytosis Anisocytosis Microcytosis Macrocytosis [place] Cells Acanthocytes (Spur) Schistocytes Puncture Site Right radial ABG pH 7.26 L D ABG pCO2 at Pt Temp 28.3 L D ABG pO2 at Pt Temp 331.0 H* D ABG HCO3 12.2 L* ABG O2 Sat (Measured) 100.0 H* ABG O2 Content 11.6 L ABG Base Excess -13.4 L* Aly Test Positive Oxygen Flow Rate Yes Sodium 123 L Potassium 4.0 Chloride 94 L Carbon Dioxide 12 L Anion Gap 17 H BUN 102 H Creatinine 1.1 Creat Clearance w eGFR > 60 POC Glucometer Random Glucose 109 H Lactic Acid Calcium 7.9 L Phosphorus Magnesium Total Bilirubin AST ALT Alkaline Phosphatase Creatine Kinase Creatine Kinase Index CK-MB (CK-2) Troponin I Total Protein Albumin Active Medications Generic Name Dose Route Start Last Admin Trade Name Freq PRN Reason Stop Dose Admin Acetaminophen 1,000 mg 07/02/18 04:52 Ofirmev Injection - IVPB Q6H PRN FEVER Ascorbic Acid 500 mg 06/13/18 22:00 07/02/18 10:40 Vitamin C - PO 500 mg BID JEF Administration Doxycycline Hyclate 100 mg 06/18/18 18:00 07/02/18 10:40 Vibramycin - PO 100 mg BID@1000,1800 JEF Administration Folic Acid 1 mg 06/15/18 10:00 07/02/18 10:40 Folic Acid - PO 1 mg DAILY JEF Administration IV Flush 8 ml 06/21/18 09:17 Picc Line Flush IVPUSH PRN PRN Protocol Sodium Chloride 1,000 mls @ 100 mls/hr 07/02/18 13:17 Normal Saline - IV ASDIR JEF Meropenem 1 gm/ Dextrose 100 mls @ 200 mls/hr 07/02/18 14:30 07/02/18 15:48 IVPB 200 mls/hr Q8H-IV JEF Administration Insulin Aspart 1 vial 07/02/18 05:00 07/02/18 12:59 Novolog Vial Sliding Scale - SQ Not Given Q4HPO [facility] Protocol Multi-Ingredient Ointment 1 applic 06/13/18 22:00 07/01/18 23:09 Zinc Oxide TP 1 applic BID JEF Administration Sodium Chloride 2 spray 06/19/18 11:32 06/19/18 13:41 [place] Nasal [place] - NS 2 spray TID PRN Administration NASAL CONGESTION Zinc Sulfate 220 mg 06/21/18 10:00 07/02/18 10:40 Orazinc - PO 220 mg DAILY JEF Administration ASSESSMENT/PLAN: 72 y/o M w/ PMH PD, CVA, HTN, HLD, IDDM, osteomyelitis, anemia, COPD, CAD, 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 #neurologic -likely anoxic brain injury -GCS 6 -continue life support measures #pulmonary -aspiration noted during intubation -intubated 400/12/5/50%, titrate for O2 sat > 90% -improved on repeat ABG, pH 7.26 #ID -sepsis 2/2 UTI and chronic ulcer infection, not in shock -now empiric treatment for aspiration -IV doxycycline and meropenem with ID on board #cardiac -maintaining BP, consider bolus if necessary -avoid AV chris blocking agents -NS @ 100 #heme-onc -chronic anemia -procrit as per heme -thrombocytopenic, no indication for transfusion at present -declines blood products d/t islam views -widely metastatic disease, prognosis grave -GOC initiated with HCP #GI -not restarting feeds at present d/t aspiration risk -re-evaluate daily for feeds #renal -Bun 102, Cr 1.1 -NS 100 #FEN -NS 100 -CMP -NPO #PPx -DVT: SCDs -GI: not indicated #dispo -monitor in ICU -full code Visit type - Emergency Visit Emergency Visit: No - New Patient This patient is new to me today: Yes Date on this admission: 07/02/18 - Critical Care Critical Care patient: Yes Total Critical Care Time (in minutes): 40 Critical Care Statement: The care of this patient involved high complexity decision making to prevent further life threatening deterioration of the patient 's condition and/or to evaluate & treat vital organ system(s) failure or risk of failure.
--- NOTE | 2018-07-02 16:52 | PN ---
Progress Note (short form) - Note Progress Note: Na 123 from 124. D/w nephro; will start feeds through GT, and give Salt tab 1gm BID. Will avoid increasing rate of IV NS, as pt already edematous. Will continue to follow Na.
--- NOTE | 2018-07-02 17:24 | CONSULT ---
Consult Consult Specialty:: Nephrology Reason for Consultation:: hyponatremia and JORDAN - History of Present Illness Chief Complaint: s/p resp failure History of Present Illness: Pt is a 72 year old male with pmhx of CVA, Parkinson's, liver cancer, HTN, HLD, DM, anemia, COPD, CAD, and osteomyelitis who was initially admitted with esbl bacteremia. He had a peg tube placed during the admission. He became hypoxic and had increased lethargy yesterday. He was intubated and moved to the ICU. He was found to be in renal failure and was found to be hyponatremic. He is unable to give history. Chart was reviewed. He was also found to be hyponatremic. He was on clinimix for several days. - History Source History Provided By: Medical Record - Past Medical History [employer]ER [employer]: Yes: CVA Cardio/Vascular: Yes: HTN, Hyperlipdemia Hepatobiliary: Yes: Other (Hepatitis but unsure which type) Renal/: Yes: Renal Inusuff Infectious Disease: Yes: C-Diff Psych: Yes: Depression Musculoskeletal: Yes: Other (Sacral Decubitus) Endocrine: Yes: Diabetes Mellitus (IDDMI) - Past Surgical History Past Surgical History: Yes: Appendectomy (young child ) - Alcohol/Substance Use Hx Alcohol Use: No History of Substance Use: reports: None - Smoking History Smoking history: Never smoked Have you smoked in the past 12 months: No - Social History Usual Living Arrangement: Long-Term ADL: Support Services 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 History of Recent Travel: No Home Medications - Allergies Allergies/Adverse Reactions: Allergies Allergy/AdvReac Type Severity Reaction Status Date / Time levofloxacin Allergy Verified 06/12/18 17:35 Penicillins Allergy Verified 06/12/18 17:35 vancomycin Allergy Verified 06/21/18 18:05 - Home Medications Home Medications: Ambulatory Orders Acetaminophen [Tylenol -] 1,000 mg PO Q8H 06/12/18 Ascorbic Acid [Vitamin C -] 500 mg PO BID 06/12/18 Ferrous Sulfate 325 mg PO DAILY 06/12/18 Glycerin Suppository Adult - 1 each RC DAILY PRN 06/12/18 Insulin Detemir [Levemir Flextouch] 5 unit SQ HS 06/12/18 Metoprolol Tartrate [Lopressor -] 25 mg PO DAILY 06/12/18 Multivitamin [Multiple Vitamins] 1 each PO DAILY 06/12/18 Pantoprazole Sodium [Protonix] 40 mg PO DAILY 06/12/18 Polyethylene Glycol 3350 [Glycolax] 17 gm PO DAILY 06/12/18 Sennosides [Senna Laxative] 17.2 mg PO HS 06/12/18 Silver Sulfadiazine 1% Top Cr [Silvadene -] 1 applic TP BID 06/12/18 Zinc Oxide 20% Topical Oint 1 applic TP BID 06/12/18 Family Disease History - Family Disease History Family History: Unable to Obtain Other Family History: Non-contribuatory Review of Systems Unable to obtain ROS, reason: pt intubated Physical Exam Vital Signs: Vital Signs Temperature 97.4 F L 07/02/18 01:48 Pulse Rate 75 07/02/18 16:00 Respiratory Rate 24 H 07/02/18 16:51 Blood Pressure 104/57 L 07/02/18 16:00 O2 Sat by Pulse Oximetry (%) 96 07/02/18 02:32 Constitutional: Yes: Calm, Mild Distress Cardiovascular: Yes: S1, S2 Respiratory: Yes: Mechanically Ventilated Gastrointestinal: Yes: Soft Renal/: Yes: [place] Present Musculoskeletal: Yes: Muscle Weakness Edema: Yes Edema: LUE: 1+, RUE: 1+, LLE: 1+, RLE: 1+ Neurological: Yes: Lethargy Labs: CBC, BMP 07/02/18 04:02 07/02/18 14:20 Laboratory Tests 06/20/18 06/25/18 07/01/18 05:30 07:30 10:00 WBC 14.8 H 10.2 H Hgb ABG pH ABG pCO2 at Pt Temp ABG pO2 at Pt Temp ABG HCO3 ABG O2 Sat (Measured) ABG O2 Content Sodium 128 L Potassium Carbon Dioxide BUN Creatinine Lactic Acid 07/01/18 07/02/18 07/02/18 10:00 03:07 04:02 WBC Hgb ABG pH 6.94 L* ABG pCO2 at Pt Temp 58.8 H ABG pO2 at Pt Temp 82.7 ABG HCO3 11.9 L* ABG O2 Sat (Measured) 87.7 L ABG O2 Content Sodium 122 L 122 L Potassium Carbon Dioxide BUN Creatinine Lactic Acid 07/02/18 07/02/18 07/02/18 04:02 05:30 05:30 WBC 16.3 H Hgb 8.1 L ABG pH ABG pCO2 at Pt Temp ABG pO2 at Pt Temp ABG HCO3 ABG O2 Sat (Measured) ABG O2 Content Sodium 124 L Potassium 3.9 Carbon Dioxide 14 L BUN 97 H Creatinine 1.1 Lactic Acid 6.0 H* 07/02/18 07/02/18 07/02/18 10:11 14:20 16:00 WBC Hgb ABG pH 7.26 L D ABG pCO2 at Pt Temp 28.3 L D ABG pO2 at Pt Temp 331.0 H* D ABG HCO3 12.2 L* ABG O2 Sat (Measured) 100.0 H* ABG O2 Content 11.6 L Sodium 123 L Potassium 4.0 Carbon Dioxide 12 L BUN 102 H Creatinine 1.1 Lactic Acid Pending Imaging - Results Chest X-ray: Report Reviewed Problem List - Problems (1) JORDAN (acute kidney injury) Code(s): N17.9 - ACUTE KIDNEY FAILURE, UNSPECIFIED (2) Hyponatremia Code(s): E87.1 - HYPO-OSMOLALITY AND HYPONATREMIA Assessment/Plan Current Medications Generic Name Dose Route Start Last Admin Trade Name Freq PRN Reason Stop Dose Admin Acetaminophen 1,000 mg 07/02/18 04:52 Ofirmev Injection - IVPB Q6H PRN FEVER Ascorbic Acid 500 mg 06/13/18 22:00 07/02/18 10:40 Vitamin C - PO 500 mg BID JEF Administration Doxycycline Hyclate 100 mg 06/18/18 18:00 07/02/18 10:40 Vibramycin - PO 100 mg BID@1000,1800 JEF Administration Folic Acid 1 mg 06/15/18 10:00 07/02/18 10:40 Folic Acid - PO 1 mg DAILY JEF Administration IV Flush 8 ml 06/21/18 09:17 Picc Line Flush IVPUSH PRN PRN Protocol Sodium Chloride 1,000 mls @ 100 mls/hr 07/02/18 13:17 07/02/18 11:00 Normal Saline - IV 100 mls/hr ASDIR JEF Administration Meropenem 1 gm/ Dextrose 100 mls @ 200 mls/hr 07/02/18 14:30 07/02/18 17:29 IVPB 200 mls/hr Q8H-IV JEF Administration Insulin Aspart 1 vial 07/02/18 05:00 07/02/18 14:00 Novolog Vial Sliding Scale - SQ Not Given Q4HPO [facility] Protocol Multi-Ingredient Ointment 1 applic 06/13/18 22:00 07/02/18 09:00 Zinc Oxide TP 1 applic BID JEF Administration Sodium Chloride 1 gm 07/02/18 16:50 Sodium Chloride Tablet - PO BID JEF Zinc Sulfate 220 mg 06/21/18 10:00 07/02/18 10:40 Orazinc - PO 220 mg DAILY JEF Administration Impression 1. hyponatremia 2. JORDAN 3. resp failure s/p intubation 4. possible liver mets 5. s/p peg 6. s/p sepsis 7. CAD 8. HTN 9. hyperlipidemia 10. parkinsons 11. DM 12. anemia Plan - check serum and urine osm - check urine lytes and retail support specialist - check cortisol and tsh - follow renal and bladder ultrasound - decrease rate of fluids - pt was getting hypotonic fluids which likely contributed to hyponatremia - add sat tabs - pt will start tube feeds today - monitor bicarb levels - discussed with ICU team - discussed with [facility] - [facility] support - repeat labs in am - evaluate for diuretics daily Dr Coe
[2018-07-02] MEDS ORDERED: SODIUM CHLORIDE 250 ML IV STA (18:34)
[2018-07-02] MEDS ORDERED: NOREPINEPHRINE BITARTRATE 4 MG/4 ML ML IV ONE (20:33)
--- NOTE | 2018-07-02 20:33 | PROC ---
Central Line Insertion Indication: CVP Monitoring, Vasopressor Risks and Benefits Explained: Yes Consent on Chart: Yes Central Line: Triple Lumen Catheter Anesthesia: 1% Lidocaine Sterile Technique: Yes Ultrasound Guided Assistance: Yes Position: Right Internal Jugular Post Insertion: Yes: Bilateral Breath Sounds Sterile Dressing Applied: Yes Remarks: R IJ placed d/t gradually worsening hypotension, MAP<65. Risks and benefits d/w health care proxy, consent placed in chart. Pt started on levophed. Line at 17cm. CXR done, confirmed Placed under direct supervision of Dr. Barboza, PGY3 and indirect supervision of hospitalist, Dr. Steven.
[2018-07-02] MEDS: NOREPINEPHRINE BITARTRATE 8,000 MCG in DEXTROSE 5%-WATER - 492 ML IV SCH (20:37)
[2018-07-02] MEDS ORDERED: SODIUM CHLORIDE 1 GM TABLET PO SCH (22:00)
[2018-07-02] MEDS: SODIUM CHLORIDE 1 GM TABLET PO SCH (22:55)
[2018-07-03] MEDS ORDERED: PT OWN MED DRAWER 7, Y5N ONE ×4 (01:12→21:35)
[2018-07-03] MEDS: MEROPENEM 1 GM in DEXTROSE 5%-WATER 100 ML IVPB SCH ×3 (02:10→17:12)
[2018-07-03 06:11] LABS: ARTERIAL BLD GAS O2 SATURATION 97.7 % (90-98.9); ARTERIAL BLOOD GAS PCO2 29.6 mmHg (35-45); ARTERIAL BLOOD GAS PO2 98.1 mmHg (70-100); ARTERIAL BLOOD GAS pH 7.28 (7.35-7.45)
[2018-07-03 06:12] LABS: ALLENS TEST POSITIVE
[2018-07-03 06:32] LABS: BASO % 0.1 % (0-2.0); EOS % 0.6 % (0-4.5); HEMATOCRIT 25.4 % (35.4-49); HEMOGLOBIN 8.1 GM/dL (11.7-16.9); LYMPH % 6.6 % (8-40); MCH 26.5 pg (25.7-33.7); MCHC 31.8 g/dl (32.0-35.9); MEAN CELL VOLUME 83.4 fl (80-96); NEUT % 89.7 % (42.8-82.8); PLATELET COUNT 63 K/MM3 (134-434); RBC 3.04 M/mm3 (4.00-5.60); RDW 23.3 % (11.9-15.9); WHITE BLOOD COUNT 15.2 K/mm3 (4.0-10.0)
[2018-07-03] MEDS: INSULIN SLIDING SCALE (NOVOLOG) 1 VIAL SQ SCH ×3 (06:35→17:06)
[2018-07-03 06:44] LABS: INR 1.74 (0.83-1.09); PROTHROMBIN TIME (PATIENT) 20.6 SEC (9.7-13.0)
[2018-07-03 06:47] LABS: ACTIVATED PTT 40.9 SECONDS (25.2-36.5)
[2018-07-03 07:06] LABS: ALBUMIN 1.3 g/dl (3.4-5.0); ALK PHOS 541 U/L (45-117); ANION GAP 15 MMOL/L (8-16); BILIRUBIN,TOTAL 3.1 mg/dL (0.2-1); BLOOD UREA NITROGEN 104 mg/dL (7-18); CALCIUM 7.6 mg/dL (8.5-10.1); CHLORIDE 94 mmol/L (98-107); CO2 16 mmol/L (21-32); CREATININE 1.3 mg/dL (0.55-1.3); GLUCOSE,RANDOM 83 mg/dL (74-106); MAGNESIUM 1.7 mg/dL (1.8-2.4); PHOSPHOROUS 4.3 mg/dL (2.5-4.9); POTASSIUM 3.5 mmol/L (3.5-5.1); SGOT/AST 285 U/L (15-37); SGPT/ALT 46 U/L (13-61); SODIUM 126 mmol/L (136-145); TOT PROT 6.1 g/dl (6.4-8.2)
--- NOTE | 2018-07-03 08:30 | PN ---
Progress Note, Physician Chief Complaint: Covering for Dr. Diaz Pt was transferred to ICU for hypoxic respiratory failure. Now is intubated / sedated - Current Medication List Current Medications: Active Medications Acetaminophen (Ofirmev Injection -) 1,000 mg IVPB Q6H PRN PRN Reason: FEVER Ascorbic Acid (Vitamin C -) 500 mg PO BID [facility] Last Admin: 07/02/18 22:01 Dose: 500 mg Doxycycline Hyclate (Vibramycin -) 100 mg PO BID@1000,1800 JEF Last Admin: 07/02/18 18:54 Dose: 100 mg Folic Acid (Folic Acid -) 1 mg PO DAILY [facility] Last Admin: 07/02/18 10:40 Dose: 1 mg IV Flush (Picc Line Flush) 8 ml IVPUSH PRN PRN PRN Reason: Protocol Meropenem 1 gm/ Dextrose 100 mls @ 200 mls/hr IVPB Q8H-IV JEF Last Admin: 07/03/18 02:10 Dose: 200 mls/hr Sodium Chloride (Normal Saline -) 1,000 mls @ 40 mls/hr IV ASDIR [facility] Last Admin: 07/02/18 18:54 Dose: 40 mls/hr Norepinephrine Bitartrate 8, (000 mcg/ Dextrose) 500 mls @ 18.75 mls/hr IV TITR [facility]; Protocol Last Titration: 07/02/18 22:30 Dose: 3 mcg/min, 11.25 mls/hr Insulin Aspart (Novolog Vial Sliding Scale -) 1 vial SQ TIDAC [facility]; Protocol Last Admin: 07/03/18 06:35 Dose: Not Given Multi-Ingredient Ointment (Zinc Oxide) 1 applic TP BID [facility] Last Admin: 07/02/18 22:01 Dose: 1 applic Sodium Chloride (Sodium Chloride Tablet -) 1 gm PO BID [facility] Last Admin: 07/02/18 22:55 Dose: 1 gm Zinc Sulfate (Orazinc -) 220 mg PO DAILY [facility] Last Admin: 07/02/18 10:40 Dose: 220 mg - Objective Vital Signs: Vital Signs Temperature 98.2 F 07/03/18 04:00 Pulse Rate 97 H 07/03/18 07:36 Respiratory Rate 25 H 07/03/18 08:26 Blood Pressure 103/57 L 07/03/18 07:36 O2 Sat by Pulse Oximetry (%) 100 07/03/18 07:36 Constitutional: Yes: No Distress Eyes: Yes: WNL HENT: Yes: WNL Neck: Yes: WNL Cardiovascular: Yes: WNL Respiratory: Yes: Intubated Gastrointestinal: Yes: WNL, Normal Bowel Sounds, Soft, Other (peg tube in place) Musculoskeletal: Yes: WNL Extremities: Yes: WNL Labs: CBC, BMP 07/03/18 05:30 07/03/18 05:30 INR, PTT INR 1.74 (0.83-1.09) H 07/03/18 05:30 Fibrinogen 319.0 mg/dL (238-498) 07/03/18 05:30 Problem List - Problems (1) Dysphagia Assessment/Plan: complicated by hypoxic respiratory failure. continue PPI therapy; plan to start feeds tomorrow as per MICU team continue supportive care Code(s): R13.10 - DYSPHAGIA, UNSPECIFIED
--- NOTE | 2018-07-03 09:37 | PN ---
Progress Note (short form) - Note Progress Note: RENAL Pt is intubated and unresponsive Last Vital Signs Temp Pulse Resp BP Pulse Ox 98.2 F 90 25 H 114/73 100 07/03/18 04:00 07/03/18 08:00 07/03/18 08:26 07/03/18 08:00 07/03/18 07:36 lungs decreased breath sounds cvs s1s2 rr abd soft ext no edema neuro not responsive CBC, BMP 07/03/18 05:30 07/03/18 05:30 Current Medications Generic Name Dose Route Start Last Admin Trade Name Freq PRN Reason Stop Dose Admin Acetaminophen 1,000 mg 07/02/18 04:52 Ofirmev Injection - IVPB Q6H PRN FEVER Ascorbic Acid 500 mg 06/13/18 22:00 07/02/18 22:01 Vitamin C - PO 500 mg BID JEF Administration Doxycycline Hyclate 100 mg 06/18/18 18:00 07/02/18 18:54 Vibramycin - PO 100 mg BID@1000,1800 JEF Administration Folic Acid 1 mg 06/15/18 10:00 07/02/18 10:40 Folic Acid - PO 1 mg DAILY JEF Administration IV Flush 8 ml 06/21/18 09:17 Picc Line Flush IVPUSH PRN PRN Protocol Meropenem 1 gm/ Dextrose 100 mls @ 200 mls/hr 07/02/18 14:30 07/03/18 02:10 IVPB 200 mls/hr Q8H-IV JEF Administration Sodium Chloride 1,000 mls @ 40 mls/hr 07/02/18 17:36 07/02/18 18:54 Normal Saline - IV 40 mls/hr ASDIR JEF Administration Norepinephrine Bitartrate 8, 500 mls @ 18.75 mls/hr 07/02/18 20:30 07/02/18 22:30 000 mcg/ Dextrose IV 3 mcg/min TITR JEF 11.25 mls/hr Titration Protocol 5 MCG/MIN Insulin Aspart 1 vial 07/03/18 07:00 07/03/18 06:35 Novolog Vial Sliding Scale - SQ Not Given TIDAC JEF Protocol Multi-Ingredient Ointment 1 applic 06/13/18 22:00 07/02/18 22:01 Zinc Oxide TP 1 applic BID JEF Administration Sodium Chloride 1 gm 07/02/18 16:50 07/02/18 22:55 Sodium Chloride Tablet - PO 1 gm BID JEF Administration Zinc Sulfate 220 mg 06/21/18 10:00 07/02/18 10:40 Orazinc - PO 220 mg DAILY JEF Administration Impression 1. hyponatremia 2. JORDAN 3. resp failure s/p intubation 4. possible liver mets 5. s/p peg 6. s/p sepsis 7. CAD 8. HTN 9. hyperlipidemia 10. parkinsons 11. DM 12. anemia Plan would hydrate. He has low urine electrolytes and high bun. The high bun should be causing hypernatremia so its unusual he has decreased breath sounds on left but his xray does not look too bad the high bun may be higher because of the doxycycline he is taking keep monitoring, may need to repeat cxr MV
[2018-07-03] MEDS: SODIUM CHLORIDE 1,000 ML IV SCH (10:33)
[2018-07-03] MEDS: ZINC SULFATE 220 MG CAPSULE (FP) PO SCH (10:34)
[2018-07-03] MEDS: ASCORBIC ACID 500 MG TABLET (FP) PO SCH ×2 (10:34→21:36)
[2018-07-03] MEDS: DOXYCYCLINE HYCLATE 100 MG CAPSULE PO SCH ×2 (10:34→17:12)
[2018-07-03] MEDS: SODIUM CHLORIDE 1 GM TABLET PO SCH ×2 (10:35→23:41)
[2018-07-03] MEDS: ZINC OXIDE 20% TOPICAL OINTMENT 30 GM TUBE TP SCH ×2 (10:36→21:37)
--- NOTE | 2018-07-03 10:37 | PN ---
Teaching Attending Note Name of Resident: Vern Alston ATTENDING PHYSICIAN STATEMENT I saw and evaluated the patient. I reviewed the resident's note and discussed the case with the resident. I agree with the resident's findings and plan as documented. SUBJECTIVE: Patient seen and examined in the ICU. Events from overnight noted. Intubated and minimally responsive despite being off sedation (less responsive than yesterday). AC Mode of vent. On NE @ 3 mcq for hemodynamic support. Intake & Output 06/30/18 07/01/18 07/02/18 07/03/18 23:59 23:59 23:59 23:59 Intake Total 924 2780 187 Output Total 300 1100 330 70 Balance 624 1680 -143 -70 Weight 142 lb 8 oz 139 lb 12.369 oz Last Vital Signs Temp Pulse Resp BP Pulse Ox 98.2 F 90 25 H 114/73 100 07/03/18 04:00 07/03/18 08:00 07/03/18 08:26 07/03/18 08:00 07/03/18 07:36 Active Medications Acetaminophen (Ofirmev Injection -) 1,000 mg IVPB Q6H PRN PRN Reason: FEVER Ascorbic Acid (Vitamin C -) 500 mg PO BID [facility] Last Admin: 07/02/18 22:01 Dose: 500 mg Doxycycline Hyclate (Vibramycin -) 100 mg PO BID@1000,1800 JEF Last Admin: 07/02/18 18:54 Dose: 100 mg Folic Acid (Folic Acid -) 1 mg PO DAILY JEF Last Admin: 07/02/18 10:40 Dose: 1 mg IV Flush (Picc Line Flush) 8 ml IVPUSH PRN PRN PRN Reason: Protocol Meropenem 1 gm/ Dextrose 100 mls @ 200 mls/hr IVPB Q8H-IV [facility]EF Last Admin: 07/03/18 02:10 Dose: 200 mls/hr Norepinephrine Bitartrate 8, (000 mcg/ Dextrose) 500 mls @ 18.75 mls/hr IV TITR [facility]; Protocol Last Titration: 07/02/18 22:30 Dose: 3 mcg/min, 11.25 mls/hr Sodium Chloride (Normal Saline -) 1,000 mls @ 80 mls/hr IV ASDIR JEF Insulin Aspart (Novolog Vial Sliding Scale -) 1 vial SQ TIDAC [facility]; Protocol Last Admin: 07/03/18 06:35 Dose: Not Given Multi-Ingredient Ointment (Zinc Oxide) 1 applic TP BID [facility] Last Admin: 07/02/18 22:01 Dose: 1 applic Phytonadione (Mephyton -) 5 mg PO ONCE ONE Stop: 07/03/18 10:15 Sodium Chloride (Sodium Chloride Tablet -) 1 gm PO BID [facility] Last Admin: 07/02/18 22:55 Dose: 1 gm Zinc Sulfate (Orazinc -) 220 mg PO DAILY [facility] Last Admin: 07/02/18 10:40 Dose: 220 mg GENERAL: Intubated, poorly responsive HEAD: Normal with no signs of trauma. EYES: Fixed, dilated pupils EARS, NOSE, THROAT: Moist mucous membranes. NECK: supple without JVD LUNGS: diffusely coarse breath sounds HEART: tachy rate and reg rhythm, normal S1 and S2 ABDOMEN: Soft, not distended, globally decreased bowel sounds, PEG in place MUSCULOSKELETAL: No bony deformities UPPER EXTREMITIES: 1+ pulses, warm, well-perfused. No peripheral edema. LOWER EXTREMITIES: 1+ pulses, warm, well-perfused. No peripheral edema. NEUROLOGICAL: minimally responsive, pupils sluggish SKIN: Warm, dry Laboratory Results - last 24 hr 07/02/18 07/02/18 07/02/18 12:27 14:20 16:00 WBC RBC Hgb Hct MCV MCH MCHC RDW Plt Count MPV Absolute Neuts (auto) Neutrophils % Lymphocytes % Monocytes % Eosinophils % Basophils % Nucleated RBC % PT with INR INR PTT (Actin FS) Fibrinogen Puncture Site ABG pH ABG pCO2 at Pt Temp ABG pO2 at Pt Temp ABG HCO3 ABG O2 Sat (Measured) ABG O2 Content ABG Base Excess Aly Test O2 Delivery Device Oxygen Flow Rate Vent Rate Mechanical Rate PEEP Pressure Support Vent Sodium 123 L Potassium 4.0 Chloride 94 L Carbon Dioxide 12 L Anion Gap 17 H BUN 102 H Creatinine 1.1 Creat Clearance w eGFR > 60 POC Glucometer 157.80239 Random Glucose 109 H Serum Osmolality Lactic Acid 4.1 H* Calcium 7.9 L Phosphorus Magnesium Total Bilirubin AST ALT Alkaline Phosphatase Total Protein Albumin TSH Urine Osmolality Ur Random Sodium Ur Random Potassium Ur Random Chloride 07/02/18 07/02/18 07/02/18 19:20 19:20 22:09 WBC RBC Hgb Hct MCV MCH MCHC RDW Plt Count MPV Absolute Neuts (auto) Neutrophils % Lymphocytes % Monocytes % Eosinophils % Basophils % Nucleated RBC % PT with INR INR PTT (Actin FS) Fibrinogen Puncture Site ABG pH ABG pCO2 at Pt Temp ABG pO2 at Pt Temp ABG HCO3 ABG O2 Sat (Measured) ABG O2 Content ABG Base Excess Aly Test O2 Delivery Device Oxygen Flow Rate Vent Rate Mechanical Rate PEEP Pressure Support Vent Sodium Potassium Chloride Carbon Dioxide Anion Gap BUN Creatinine Creat Clearance w eGFR POC Glucometer 138.29658 Random Glucose Serum Osmolality Lactic Acid Calcium Phosphorus Magnesium Total Bilirubin AST ALT Alkaline Phosphatase Total Protein Albumin TSH Urine Osmolality 332 Ur Random Sodium < 18 L Ur Random Potassium < 9.0 L Ur Random Chloride 26 L 07/03/18 07/03/18 07/03/18 05:30 05:30 05:30 WBC 15.2 H RBC 3.04 L Hgb 8.1 L Hct 25.4 L MCV 83.4 MCH 26.5 MCHC 31.8 L RDW 23.3 H Plt Count 63 L D MPV 9.0 Absolute Neuts (auto) 13.6 H Neutrophils % 89.7 H Lymphocytes % 6.6 L D Monocytes % 3.0 L Eosinophils % 0.6 Basophils % 0.1 Nucleated RBC % 0 PT with INR 20.60 H INR 1.74 H PTT (Actin FS) 40.9 H Fibrinogen 319.0 Puncture Site ABG pH ABG pCO2 at Pt Temp ABG pO2 at Pt Temp ABG HCO3 ABG O2 Sat (Measured) ABG O2 Content ABG Base Excess Aly Test O2 Delivery Device Oxygen Flow Rate Vent Rate Mechanical Rate PEEP Pressure Support Vent Sodium Potassium Chloride Carbon Dioxide Anion Gap BUN Creatinine Creat Clearance w eGFR POC Glucometer Random Glucose Serum Osmolality Lactic Acid Calcium Phosphorus Magnesium Total Bilirubin AST ALT Alkaline Phosphatase Total Protein Albumin TSH Urine Osmolality Ur Random Sodium Ur Random Potassium Ur Random Chloride 07/03/18 07/03/18 07/03/18 05:30 05:30 06:00 WBC RBC Hgb Hct MCV MCH MCHC RDW Plt Count MPV Absolute Neuts (auto) Neutrophils % Lymphocytes % Monocytes % Eosinophils % Basophils % Nucleated RBC % PT with INR INR PTT (Actin FS) Fibrinogen Puncture Site Right radial ABG pH 7.28 L ABG pCO2 at Pt Temp 29.6 L ABG pO2 at Pt Temp 98.1 D ABG HCO3 13.4 L* ABG O2 Sat (Measured) 97.7 ABG O2 Content 11.5 L ABG Base Excess -12.0 L* Aly Test Positive O2 Delivery Device Mech vent Oxygen Flow Rate 50 Vent Rate 12 Mechanical Rate Yes PEEP 5.0 Pressure Support Vent 400 Sodium 126 L Potassium 3.5 Chloride 94 L Carbon Dioxide 16 L Anion Gap 15 BUN 104 H Creatinine 1.3 Creat Clearance w eGFR 53.96 POC Glucometer Random Glucose 83 Serum Osmolality 295 Lactic Acid Calcium 7.6 L Phosphorus 4.3 Magnesium 1.7 L Total Bilirubin 3.1 H AST 285 H ALT 46 Alkaline Phosphatase 541 H Total Protein 6.1 L Albumin 1.3 L TSH 2.23 D Urine Osmolality Ur Random Sodium Ur Random Potassium Ur Random Chloride 07/03/18 07/03/18 06:07 08:00 WBC RBC Hgb Hct MCV MCH MCHC RDW Plt Count MPV Absolute Neuts (auto) Neutrophils % Lymphocytes % Monocytes % Eosinophils % Basophils % Nucleated RBC % PT with INR INR PTT (Actin FS) Fibrinogen Puncture Site ABG pH ABG pCO2 at Pt Temp ABG pO2 at Pt Temp ABG HCO3 ABG O2 Sat (Measured) ABG O2 Content ABG Base Excess Aly Test O2 Delivery Device Oxygen Flow Rate Vent Rate Mechanical Rate PEEP Pressure Support Vent Sodium Potassium Chloride Carbon Dioxide Anion Gap BUN Creatinine Creat Clearance w eGFR POC Glucometer 123.43331 105.06030 Random Glucose Serum Osmolality Lactic Acid Calcium Phosphorus Magnesium Total Bilirubin AST ALT Alkaline Phosphatase Total Protein Albumin TSH Urine Osmolality Ur Random Sodium Ur Random Potassium Ur Random Chloride Problem List - Problems (1) Anoxic brain injury Code(s): G93.1 - ANOXIC BRAIN DAMAGE, NOT ELSEWHERE CLASSIFIED (2) Acute respiratory failure with hypoxia Code(s): J96.01 - ACUTE RESPIRATORY FAILURE WITH HYPOXIA (3) Aspiration into airway Code(s): T17.908A - UNSP FB IN RESP TRACT, PART UNSP CAUSING OTH INJURY, INIT (4) CAD (coronary artery disease) Code(s): I25.10 - ATHSCL HEART DISEASE OF [place] CORONARY ARTERY W/O ANG PCTRS (5) HTN (hypertension) Code(s): I10 - ESSENTIAL (PRIMARY) HYPERTENSION (6) Diabetes Code(s): E11.9 - TYPE 2 DIABETES MELLITUS WITHOUT COMPLICATIONS (7) Abnormal liver enzymes Code(s): R74.8 - ABNORMAL LEVELS OF OTHER SERUM ENZYMES (8) Dysphagia Code(s): R13.10 - DYSPHAGIA, UNSPECIFIED (9) Liver lesion Code(s): K76.9 - LIVER DISEASE, UNSPECIFIED (10) Sacral decubitus ulcer, stage IV Code(s): L89.154 - PRESSURE ULCER OF [place] REG[place], STAGE 4 (11) Sepsis Code(s): A41.9 - SEPSIS, UNSPECIFIED ORGANISM Qualifiers: Sepsis type: sepsis due to unspecified organism Qualified Code(s): A41.9 - Sepsis, unspecified organism (12) Anemia Code(s): D64.9 - ANEMIA, UNSPECIFIED (13) Bacteremia Code(s): R78.81 - BACTEREMIA (14) Normocytic normochromic anemia Code(s): D64.9 - ANEMIA, UNSPECIFIED (15) Sacral decubitus ulcer, stage III Code(s): L89.153 - PRESSURE ULCER OF [place], STAGE 3 ASSESSMENT/PLAN: Acute hypoxic respiratory failure secondary to aspiration NERY Sepsis due to ESBL bacteremia / sacral ulcer S/P PEG Suspected Metastatic liver CA Anemia Parkinsons COPD IDDM CAD HTN HLD Wean Vent settings as tolerated Follow Neuro exam ABX per ID He was a poor candidate for cooling due to active infection Would start NGT feeds if OK with GI Noted IVF increased by Renal Glycemic control Check Ammonia Need further GOC discussions with family as overall prognosis appears grave for meaningful recovery Dr Bermudez Critical care time spent in reviewing chart, evaluating patient and formulating plan - 36 minutes.
--- NOTE | 2018-07-03 11:26 | PN ---
Progress Note, Physician - Current Medication List Current Medications: Active Medications Acetaminophen (Ofirmev Injection -) 1,000 mg IVPB Q6H PRN PRN Reason: FEVER Ascorbic Acid (Vitamin C -) 500 mg PO BID [facility] Last Admin: 07/03/18 10:34 Dose: 500 mg Doxycycline Hyclate (Vibramycin -) 100 mg PO BID@1000,1800 [facility] Last Admin: 07/03/18 10:34 Dose: 100 mg Folic Acid (Folic Acid -) 1 mg PO DAILY [facility] Last Admin: 07/02/18 10:40 Dose: 1 mg IV Flush (Picc Line Flush) 8 ml IVPUSH PRN PRN PRN Reason: Protocol Meropenem 1 gm/ Dextrose 100 mls @ 200 mls/hr IVPB Q8H-IV [facility] Last Admin: 07/03/18 10:33 Dose: 200 mls/hr Norepinephrine Bitartrate 8, (000 mcg/ Dextrose) 500 mls @ 18.75 mls/hr IV TITR [facility]; Protocol Last Titration: 07/02/18 22:30 Dose: 3 mcg/min, 11.25 mls/hr Sodium Chloride (Normal Saline -) 1,000 mls @ 80 mls/hr IV ASDIR [facility] Last Admin: 07/03/18 10:33 Dose: 80 mls/hr Insulin Aspart (Novolog Vial Sliding Scale -) 1 vial SQ TIDAC [facility]; Protocol Last Admin: 07/03/18 11:08 Dose: Not Given Multi-Ingredient Ointment (Zinc Oxide) 1 applic TP BID [facility] Last Admin: 07/03/18 10:36 Dose: 1 applic Phytonadione (Mephyton -) 5 mg PO ONCE ONE Stop: 07/03/18 11:31 Sodium Chloride (Sodium Chloride Tablet -) 1 gm PO BID [facility] Last Admin: 07/03/18 10:35 Dose: 1 gm Zinc Sulfate (Orazinc -) 220 mg PO DAILY [facility] Last Admin: 07/03/18 10:34 Dose: 220 mg - Objective Vital Signs: Vital Signs Temperature 97.7 F 07/03/18 10:00 Pulse Rate 89 07/03/18 10:00 Respiratory Rate 31 H 07/03/18 11:04 Blood Pressure 118/55 L 07/03/18 10:00 O2 Sat by Pulse Oximetry (%) 100 07/03/18 07:36 Cardiovascular: Yes: S1, S2 Respiratory: Yes: Mechanically Ventilated Gastrointestinal: Yes: Normal Bowel Sounds, Soft Neurological: Yes: Unresponsive Labs: CBC, BMP 07/03/18 05:30 07/03/18 05:30 INR, PTT INR 1.74 (0.83-1.09) H 07/03/18 05:30 Fibrinogen 319.0 mg/dL (238-498) 07/03/18 05:30 Problem List - Problems (1) Acute respiratory failure with hypoxia Assessment/Plan: -intubated Full code Code(s): J96.01 - ACUTE RESPIRATORY FAILURE WITH HYPOXIA (2) Metabolic encephalopathy Assessment/Plan: Unresponsive with fixed pupils, posibly anoxic brain injury GCS 3 Code(s): G93.41 - METABOLIC ENCEPHALOPATHY (3) 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 (4) Sacral decubitus ulcer Assessment/Plan: -wound care Code(s): L89.159 - PRESSURE ULCER OF [place], UNSPECIFIED STAGE (5) Hyponatremia Assessment/Plan: -NS -RENAL CONSULT Code(s): E87.1 - HYPO-OSMOLALITY AND HYPONATREMIA (6) Sepsis Assessment/Plan: -ABX -ID FOLLOW UP Code(s): A41.9 - SEPSIS, UNSPECIFIED ORGANISM Qualifiers: Sepsis type: sepsis due to unspecified organism Qualified Code(s): A41.9 - Sepsis, unspecified organism (7) Anemia Assessment/Plan: -NO TRANSFUSION DUE TO CHRISTIAN BELIEFS Code(s): D64.9 - ANEMIA, UNSPECIFIED
[2018-07-03] MEDS ORDERED: PHYTONADIONE 5 MG TABLET PO ONE (11:30)
--- NOTE | 2018-07-03 12:18 | PN ---
Physical Exam: SUBJECTIVE: Patient seen and examined at bedside. Remains intubated, non- responsive. Became hypotensive overnight, central line placed and levophed initiated. Patient's HCP was intensely interested in his albumin level and in giving intravenous albumin infusion. Explained to her that this is of no medical benefit to patient and would risk significant side effects. OBJECTIVE: Vital Signs Period Temp Pulse Resp BP Sys/[place] Pulse Ox Last 24 Hr 97.7 F-98.2 F 75-102 12-34 84-133/41-73 99-100 GENERAL: opens eyes to vigorous sternal rub HEAD: NC/AT EYES: pupils dilated, fixed, non-responsive EARS, NOSE, THROAT: Moist mucous membranes. NECK: supple without JVD LUNGS: diffusely coarse breath sounds HEART: tachycardic no m/r/g ABDOMEN: absent bowel sounds, soft, PEG in place MUSCULOSKELETAL: No bony deformities EXTREMITIES: 1+ pulses, warm, well-perfused. No peripheral edema NEUROLOGICAL: GCS 4 (eyes open to pain, intubated, negligible motor response to pain), corneal reflex not assessed but noted to be absent in ICU intake evaluation SKIN: Warm, dry Laboratory Results - last 24 hr 07/02/18 07/02/18 07/02/18 12:27 14:20 16:00 WBC RBC Hgb Hct MCV MCH MCHC RDW Plt Count MPV Absolute Neuts (auto) Neutrophils % Lymphocytes % Monocytes % Eosinophils % Basophils % Nucleated RBC % PT with INR INR PTT (Actin FS) Fibrinogen Puncture Site ABG pH ABG pCO2 at Pt Temp ABG pO2 at Pt Temp ABG HCO3 ABG O2 Sat (Measured) ABG O2 Content ABG Base Excess Aly Test O2 Delivery Device Oxygen Flow Rate Vent Rate Mechanical Rate PEEP Pressure Support Vent Sodium 123 L Potassium 4.0 Chloride 94 L Carbon Dioxide 12 L Anion Gap 17 H BUN 102 H Creatinine 1.1 Creat Clearance w eGFR > 60 POC Glucometer 157.38304 Random Glucose 109 H Serum Osmolality Lactic Acid 4.1 H* Calcium 7.9 L Phosphorus Magnesium Total Bilirubin AST ALT Alkaline Phosphatase Ammonia Total Protein Albumin TSH Urine Osmolality Ur Random Sodium Ur Random Potassium Ur Random Chloride 07/02/18 07/02/18 07/02/18 19:20 19:20 22:09 WBC RBC Hgb Hct MCV MCH MCHC RDW Plt Count MPV Absolute Neuts (auto) Neutrophils % Lymphocytes % Monocytes % Eosinophils % Basophils % Nucleated RBC % PT with INR INR PTT (Actin FS) Fibrinogen Puncture Site ABG pH ABG pCO2 at Pt Temp ABG pO2 at Pt Temp ABG HCO3 ABG O2 Sat (Measured) ABG O2 Content ABG Base Excess Aly Test O2 Delivery Device Oxygen Flow Rate Vent Rate Mechanical Rate PEEP Pressure Support Vent Sodium Potassium Chloride Carbon Dioxide Anion Gap BUN Creatinine Creat Clearance w eGFR POC Glucometer 138.69672 Random Glucose Serum Osmolality Lactic Acid Calcium Phosphorus Magnesium Total Bilirubin AST ALT Alkaline Phosphatase Ammonia Total Protein Albumin TSH Urine Osmolality 332 Ur Random Sodium < 18 L Ur Random Potassium < 9.0 L Ur Random Chloride 26 L 07/03/18 07/03/18 07/03/18 05:30 05:30 05:30 WBC 15.2 H RBC 3.04 L Hgb 8.1 L Hct 25.4 L MCV 83.4 MCH 26.5 MCHC 31.8 L RDW 23.3 H Plt Count 63 L D MPV 9.0 Absolute Neuts (auto) 13.6 H Neutrophils % 89.7 H Lymphocytes % 6.6 L D Monocytes % 3.0 L Eosinophils % 0.6 Basophils % 0.1 Nucleated RBC % 0 PT with INR 20.60 H INR 1.74 H PTT (Actin FS) 40.9 H Fibrinogen 319.0 Puncture Site ABG pH ABG pCO2 at Pt Temp ABG pO2 at Pt Temp ABG HCO3 ABG O2 Sat (Measured) ABG O2 Content ABG Base Excess Aly Test O2 Delivery Device Oxygen Flow Rate Vent Rate Mechanical Rate PEEP Pressure Support Vent Sodium Potassium Chloride Carbon Dioxide Anion Gap BUN Creatinine Creat Clearance w eGFR POC Glucometer Random Glucose Serum Osmolality Lactic Acid Calcium Phosphorus Magnesium Total Bilirubin AST ALT Alkaline Phosphatase Ammonia Total Protein Albumin TSH Urine Osmolality Ur Random Sodium Ur Random Potassium Ur Random Chloride 07/03/18 07/03/18 07/03/18 05:30 05:30 06:00 WBC RBC Hgb Hct MCV MCH MCHC RDW Plt Count MPV Absolute Neuts (auto) Neutrophils % Lymphocytes % Monocytes % Eosinophils % Basophils % Nucleated RBC % PT with INR INR PTT (Actin FS) Fibrinogen Puncture Site Right radial ABG pH 7.28 L ABG pCO2 at Pt Temp 29.6 L ABG pO2 at Pt Temp 98.1 D ABG HCO3 13.4 L* ABG O2 Sat (Measured) 97.7 ABG O2 Content 11.5 L ABG Base Excess -12.0 L* Aly Test Positive O2 Delivery Device Mech vent Oxygen Flow Rate 50 Vent Rate 12 Mechanical Rate Yes PEEP 5.0 Pressure Support Vent 400 Sodium 126 L Potassium 3.5 Chloride 94 L Carbon Dioxide 16 L Anion Gap 15 BUN 104 H Creatinine 1.3 Creat Clearance w eGFR 53.96 POC Glucometer Random Glucose 83 Serum Osmolality 295 Lactic Acid Calcium 7.6 L Phosphorus 4.3 Magnesium 1.7 L Total Bilirubin 3.1 H AST 285 H ALT 46 Alkaline Phosphatase 541 H Ammonia Total Protein 6.1 L Albumin 1.3 L TSH 2.23 D Urine Osmolality Ur Random Sodium Ur Random Potassium Ur Random Chloride 07/03/18 07/03/18 07/03/18 06:07 08:00 10:38 WBC RBC Hgb Hct MCV MCH MCHC RDW Plt Count MPV Absolute Neuts (auto) Neutrophils % Lymphocytes % Monocytes % Eosinophils % Basophils % Nucleated RBC % PT with INR INR PTT (Actin FS) Fibrinogen Puncture Site ABG pH ABG pCO2 at Pt Temp ABG pO2 at Pt Temp ABG HCO3 ABG O2 Sat (Measured) ABG O2 Content ABG Base Excess Aly Test O2 Delivery Device Oxygen Flow Rate Vent Rate Mechanical Rate PEEP Pressure Support Vent Sodium Potassium Chloride Carbon Dioxide Anion Gap BUN Creatinine Creat Clearance w eGFR POC Glucometer 123.95237 105.58054 Random Glucose Serum Osmolality Lactic Acid Calcium Phosphorus Magnesium Total Bilirubin AST ALT Alkaline Phosphatase Ammonia 24.40 Total Protein Albumin TSH Urine Osmolality Ur Random Sodium Ur Random Potassium Ur Random Chloride Active Medications Generic Name Dose Route Start Last Admin Trade Name Freq PRN Reason Stop Dose Admin Acetaminophen 1,000 mg 07/02/18 04:52 Ofirmev Injection - IVPB Q6H PRN FEVER Ascorbic Acid 500 mg 06/13/18 22:00 07/03/18 10:34 Vitamin C - PO 500 mg BID JEF Administration Doxycycline Hyclate 100 mg 06/18/18 18:00 07/03/18 10:34 Vibramycin - PO 100 mg BID@1000,1800 JEF Administration Folic Acid 1 mg 06/15/18 10:00 07/02/18 10:40 Folic Acid - PO 1 mg DAILY JEF Administration IV Flush 8 ml 06/21/18 09:17 Picc Line Flush IVPUSH PRN PRN Protocol Meropenem 1 gm/ Dextrose 100 mls @ 200 mls/hr 07/02/18 14:30 07/03/18 10:33 IVPB 200 mls/hr Q8H-IV JEF Administration Norepinephrine Bitartrate 8, 500 mls @ 18.75 mls/hr 07/02/18 20:30 07/02/18 22:30 000 mcg/ Dextrose IV 3 mcg/min TITR JEF 11.25 mls/hr Titration Protocol 5 MCG/MIN Sodium Chloride 1,000 mls @ 80 mls/hr 07/03/18 09:47 07/03/18 10:33 Normal Saline - IV 80 mls/hr ASDIR JEF Administration Insulin Aspart 1 vial 07/03/18 07:00 07/03/18 11:08 Novolog Vial Sliding Scale - SQ Not Given TIDAC JEF Protocol Multi-Ingredient Ointment 1 applic 06/13/18 22:00 07/03/18 10:36 Zinc Oxide TP 1 applic BID JEF Administration Sodium Chloride 1 gm 07/02/18 16:50 07/03/18 10:35 Sodium Chloride Tablet - PO 1 gm BID JEF Administration Zinc Sulfate 220 mg 06/21/18 10:00 07/03/18 10:34 Orazinc - PO 220 mg DAILY JEF Administration ASSESSMENT/PLAN: 72 y/o M w/ PMH PD, CVA, HTN, HLD, IDDM, osteomyelitis, anemia, COPD, CAD, 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 #neurologic -likely anoxic brain injury -GCS 4 -continue life support measures #pulmonary -aspiration noted during intubation -titrate vent for O2 sat > 90% -improved on re-repeat ABG, pH 7.28 #cardiac -septic shock, titrate levophed to maintain MAP > 65 -avoid AV chris blocking agents -NS @ 80 #ID -sepsis 2/2 UTI and chronic ulcer infection, now in septic shock on pressors -IV doxycycline and meropenem with ID on board #renal -ongoing hyponatremia, Na 126 -Na acceptable given liver disease per renal -worsening JORDAN: BUN 104, Cr 1.3 -NS 80 -per renal, hold feeds to observe trend in BUN #GI -LFTs elevated, INR and T Bilirubin worsening -stable hypoalbuminemia, no indication for albumin infusion -GI on board, agrees to hold feed for one day per renal recs -ammonia wnl, neurologic issues therefore likely 2/2 anoxic injury -re-evaluate daily for feeds #heme-onc -chronic anemia -procrit as per heme -PO vitamin K -thrombocytopenic, no indication for transfusion at present -declines blood products d/t sikhism views -widely metastatic disease, prognosis grave -GOC initiated with HCP #FEN -NS 80 -CMP -NPO #PPx -DVT: SCDs -GI: not indicated #dispo -monitor in ICU -full code Visit type - Emergency Visit Emergency Visit: No - New Patient This patient is new to me today: No - Critical Care Critical Care patient: Yes Total Critical Care Time (in minutes): 40 Critical Care Statement: The care of this patient involved high complexity decision making to prevent further life threatening deterioration of the patient 's condition and/or to evaluate & treat vital organ system(s) failure or risk of failure.
[2018-07-03] MEDS: FOLIC ACID 1 MG TABLET (FP) PO SCH (12:35)
--- NOTE | 2018-07-03 14:40 | PN ---
Progress Note, Physician History of Present Illness: Events noted, lab/imaging results reviewed. Pt lethargic, intubated. On norepinephrine drip. - Current Medication List Current Medications: Active Medications Acetaminophen (Ofirmev Injection -) 1,000 mg IVPB Q6H PRN PRN Reason: FEVER Ascorbic Acid (Vitamin C -) 500 mg PO BID [facility] Last Admin: 07/03/18 10:34 Dose: 500 mg Doxycycline Hyclate (Vibramycin -) 100 mg PO BID@1000,1800 [facility] Last Admin: 07/03/18 10:34 Dose: 100 mg Folic Acid (Folic Acid -) 1 mg PO DAILY [facility] Last Admin: 07/03/18 12:35 Dose: 1 mg IV Flush (Picc Line Flush) 8 ml IVPUSH PRN PRN PRN Reason: Protocol Meropenem 1 gm/ Dextrose 100 mls @ 200 mls/hr IVPB Q8H-IV [facility] Last Admin: 07/03/18 10:33 Dose: 200 mls/hr Norepinephrine Bitartrate 8, (000 mcg/ Dextrose) 500 mls @ 18.75 mls/hr IV TITR [facility]; Protocol Last Titration: 07/02/18 22:30 Dose: 3 mcg/min, 11.25 mls/hr Sodium Chloride (Normal Saline -) 1,000 mls @ 80 mls/hr IV ASDIR [facility] Last Admin: 07/03/18 10:33 Dose: 80 mls/hr Insulin Aspart (Novolog Vial Sliding Scale -) 1 vial SQ TIDAC [facility]; Protocol Last Admin: 07/03/18 11:08 Dose: Not Given Multi-Ingredient Ointment (Zinc Oxide) 1 applic TP BID [facility] Last Admin: 07/03/18 10:36 Dose: 1 applic Sodium Chloride (Sodium Chloride Tablet -) 1 gm PO BID [facility] Last Admin: 07/03/18 10:35 Dose: 1 gm Zinc Sulfate (Orazinc -) 220 mg PO DAILY [facility] Last Admin: 07/03/18 10:34 Dose: 220 mg - Objective Vital Signs: Vital Signs Temperature 97.7 F 07/03/18 10:00 Pulse Rate 96 H 07/03/18 12:00 Respiratory Rate 24 H 07/03/18 13:41 Blood Pressure 112/57 L 07/03/18 12:00 O2 Sat by Pulse Oximetry (%) 100 07/03/18 07:36 Constitutional: Yes: No Distress Cardiovascular: Yes: Regular Rate and Rhythm Respiratory: Yes: Mechanically Ventilated Gastrointestinal: Yes: Normal Bowel Sounds, Soft, Other (peg) Wound/Incision: Yes: Dressing Dry and Intact Neurological: Yes: Weakness Labs: CBC, BMP 07/03/18 05:30 07/03/18 05:30 INR, PTT INR 1.74 (0.83-1.09) H 07/03/18 05:30 Fibrinogen 319.0 mg/dL (238-498) 07/03/18 05:30 Microbiology 06/14/18 06:40 Blood - Peripheral Venous Blood Culture - Final NO GROWTH AFTER 5 DAYS INCUBATION 06/14/18 07:00 Blood - Peripheral Venous Blood Culture - Final NO GROWTH AFTER 5 DAYS INCUBATION 06/12/18 17:22 Decubiti Gram Stain - Final 06/12/18 17:22 Decubiti Wound Culture - Final S Aureus Vr Ec Faecalis Proteus Mirabilis 06/12/18 17:22 Blood - Peripheral Venous Blood Culture - Final Escherichia Coli Esbl Digital Computer Operator 06/12/18 17:10 Blood - Peripheral Venous Blood Culture - Final Escherichia Coli Esbl Digital Computer Operator 06/12/18 09:20 Urine - Urine - Catheterized Urine Culture - Final Proteus Mirabilis 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 (3) Sacral decubitus ulcer Code(s): L89.159 - PRESSURE ULCER OF SACRAL REGION, UNSPECIFIED STAGE (4) Sepsis Code(s): A41.9 - SEPSIS, UNSPECIFIED ORGANISM Qualifiers: Sepsis type: sepsis due to unspecified organism Qualified Code(s): A41.9 - Sepsis, unspecified organism (5) Bacteremia Code(s): R78.81 - BACTEREMIA (6) Normocytic normochromic anemia Code(s): D64.9 - ANEMIA, UNSPECIFIED Assessment/Plan Acute Respiratory failure/Mech ventilator Aspiration NERY s/p ESBL+ bacteremia sacral DU Metastatic liver CA COPD IDDM CAD HTN HLD Parkinsons -- cont. Meropenem/Doxycycline -- monitor wbc trend, slightly decreased from yesterday -- pt currently intubated on Norepinephrine drip -- currently afebrile rest of care per ICU cc time: 40 min
[2018-07-03] MEDS: NOREPINEPHRINE BITARTRATE 8,000 MCG in DEXTROSE 5%-WATER - 492 ML IV SCH (21:29)
[2018-07-03] MEDS: PROPOFOL 1,000,000 MCG/100 ML VIAL IVPB SCH (22:05)
[2018-07-03] MEDS ORDERED: MAGNESIUM SULF 50% (8.12 MEQ/2 ML-1 GM VIAL) IVPB ONE (22:46)
[2018-07-03] MEDS: KCL 10 MEQ IVPB 10 MEQ/100 ML INFUS.BAG IVPB SCH (23:46)
[2018-07-04] MEDS ORDERED: DIGOXIN 0.5 MG/2 ML AMPUL ONE (00:56)
--- NOTE | 2018-07-04 00:56 | PN ---
Progress Note (short form) - Note Progress Note: Called to evaluate patient in new onset Afib with RVR, hemodynamically unstable already on pressors. Ordered digoxin .25 q6 x 2 doses
[2018-07-04] MEDS ORDERED: DIGOXIN 0.5 MG/2 ML AMPUL IVPUSH SCH (01:00)
[2018-07-04] MEDS ORDERED: DIGOXIN 0.5 MG/2 ML AMPUL IVPUSH ONE (01:10)
[2018-07-04] MEDS: KCL 10 MEQ IVPB 10 MEQ/100 ML INFUS.BAG IVPB SCH ×2 (01:19→02:10)
[2018-07-04] MEDS ORDERED: AMIODARONE HCL 150 MG/3 ML VIAL IVPUSH ONE (01:22)
[2018-07-04] MEDS ORDERED: AMIODARONE HCL 150 MG/3 ML VIAL ONE (01:28)
[2018-07-04] MEDS ORDERED: LACTATED RINGERS SOLUTION 1000 ML INFUS.BAG IV ONE (01:39)
[2018-07-04] MEDS ORDERED: PT OWN MED DRAWER 7, Y5N ONE ×5 (02:12→21:55)
[2018-07-04] MEDS: MEROPENEM 1 GM in DEXTROSE 5%-WATER 100 ML IVPB SCH ×2 (02:13→14:01)
[2018-07-04 06:42] LABS: BASO % 0.1 % (0-2.0); EOS % 0.6 % (0-4.5); HEMATOCRIT 26.1 % (35.4-49); HEMOGLOBIN 8.4 GM/dL (11.7-16.9); LYMPH % 7.3 % (8-40); MEAN CELL VOLUME 84.2 fl (80-96); MEAN PLT VOLUME 9.4 fl (7.5-11.1); MONO % 3.8 % (3.8-10.2); NEUT % 88.2 % (42.8-82.8); PLATELET COUNT 109 K/MM3 (134-434); RDW 24.1 % (11.9-15.9); WHITE BLOOD COUNT 18.3 K/mm3 (4.0-10.0)
[2018-07-04 07:09] LABS: INR 1.79 (0.83-1.09); PROTHROMBIN TIME (PATIENT) 21.2 SEC (9.7-13.0)
[2018-07-04 07:11] LABS: ACTIVATED PTT 45.2 SECONDS (25.2-36.5)
[2018-07-04 08:10] LABS: ALBUMIN 1.3 g/dl (3.4-5.0); ALK PHOS 534 U/L (45-117); ANION GAP 15 MMOL/L (8-16); BILIRUBIN,TOTAL 3.5 mg/dL (0.2-1); BLOOD UREA NITROGEN 104 mg/dL (7-18); CALCIUM 7.3 mg/dL (8.5-10.1); CHLORIDE 94 mmol/L (98-107); CO2 15 mmol/L (21-32); CREATININE 1.7 mg/dL (0.55-1.3); GLUCOSE,RANDOM 104 mg/dL (74-106); PHOSPHOROUS 4.8 mg/dL (2.5-4.9); POTASSIUM 4.2 mmol/L (3.5-5.1); SGOT/AST 164 U/L (15-37); SGPT/ALT 31 U/L (13-61); SODIUM 124 mmol/L (136-145)
[2018-07-04] MEDS: INSULIN SLIDING SCALE (NOVOLOG) 1 VIAL SQ SCH ×3 (08:15→17:01)
[2018-07-04] MEDS: ZINC SULFATE 220 MG CAPSULE (FP) PO SCH (09:22)
[2018-07-04] MEDS: ASCORBIC ACID 500 MG TABLET (FP) PO SCH ×2 (09:22→21:57)
[2018-07-04] MEDS: FOLIC ACID 1 MG TABLET (FP) PO SCH (09:22)
[2018-07-04] MEDS: SODIUM CHLORIDE 1 GM TABLET PO SCH ×2 (09:24→21:57)
[2018-07-04] MEDS: DOXYCYCLINE HYCLATE 100 MG CAPSULE PO SCH ×2 (09:24→18:10)
[2018-07-04] MEDS: ZINC OXIDE 20% TOPICAL OINTMENT 30 GM TUBE TP SCH ×2 (09:25→21:57)
[2018-07-04] MEDS: PROPOFOL 1,000,000 MCG/100 ML VIAL IVPB SCH (09:27)
--- NOTE | 2018-07-04 09:37 | PN ---
Progress Note, Physician History of Present Illness: This is a 72 yo M [facility] Resident with PMH for parkinsons disease, likely metastatic liver malignancy, CVA (2012; R sided residual weakness), HTN, HLD, IDDM, osteomyelitis, anemia, COPD and CAD, admitted due to lethargy and diminished appetite, found to be severely septic due to Gram neg ESBL bacteremia from chronic decubitus ulcer source, POD 2 s/p PEG, In ICU Intubated Off propofol - Current Medication List Current Medications: Active Medications Acetaminophen (Ofirmev Injection -) 1,000 mg IVPB Q6H PRN PRN Reason: FEVER Ascorbic Acid (Vitamin C -) 500 mg PO BID [facility] Last Admin: 07/04/18 09:22 Dose: 500 mg Doxycycline Hyclate (Vibramycin -) 100 mg PO BID@1000,1800 [facility] Last Admin: 07/04/18 09:24 Dose: 100 mg Folic Acid (Folic Acid -) 1 mg PO DAILY [facility] Last Admin: 07/04/18 09:22 Dose: 1 mg IV Flush (Picc Line Flush) 8 ml IVPUSH PRN PRN PRN Reason: Protocol Meropenem 1 gm/ Dextrose 100 mls @ 200 mls/hr IVPB Q8H-IV [facility] Last Admin: 07/04/18 02:13 Dose: 200 mls/hr Norepinephrine Bitartrate 8, (000 mcg/ Dextrose) 500 mls @ 18.75 mls/hr IV TITR [facility]; Protocol Last Titration: 07/03/18 23:55 Dose: 10 mcg/min, 37.5 mls/hr Sodium Chloride (Normal Saline -) 1,000 mls @ 80 mls/hr IV ASDIR [facility] Last Admin: 07/03/18 10:33 Dose: 80 mls/hr Propofol (Diprivan -) 1,000,000 mcg in 100 mls @ 1.902 mls/hr IVPB TITR [facility]; Protocol Last Admin: 07/04/18 09:27 Dose: 20 mcg/kg/min, 7.608 mls/hr Insulin Aspart (Novolog Vial Sliding Scale -) 1 vial SQ TIDAC [facility]; Protocol Last Admin: 07/04/18 08:15 Dose: Not Given Multi-Ingredient Ointment (Zinc Oxide) 1 applic TP BID [facility] Last Admin: 10/14/18 09:25 Dose: Not Given Sodium Chloride (Sodium Chloride Tablet -) 1 gm PO BID [facility] Last Admin: 07/04/18 09:24 Dose: 1 gm Zinc Sulfate (Orazinc -) 220 mg PO DAILY [facility] Last Admin: 07/04/18 09:22 Dose: 220 mg - Objective Vital Signs: Vital Signs Temperature 98.3 F 07/04/18 06:00 Pulse Rate 102 H 07/04/18 09:00 Respiratory Rate 33 H 07/04/18 09:00 Blood Pressure 136/58 L 07/04/18 09:00 O2 Sat by Pulse Oximetry (%) 100 07/04/18 08:00 Cardiovascular: Yes: S1, S2 Respiratory: Yes: Mechanically Ventilated Gastrointestinal: Yes: Normal Bowel Sounds, Soft Neurological: Yes: Unresponsive Labs: CBC, BMP 07/04/18 05:25 07/04/18 05:25 INR, PTT INR 1.79 (0.83-1.09) H 07/04/18 05:25 Fibrinogen 319.0 mg/dL (238-498) 07/04/18 05:25 Problem List - Problems (1) Acute respiratory failure with hypoxia Assessment/Plan: -intubated -Full code -Off propofol --asses ms Code(s): J96.01 - ACUTE RESPIRATORY FAILURE WITH HYPOXIA (2) Metabolic encephalopathy Assessment/Plan: asses now pt off propofol Code(s): G93.41 - METABOLIC ENCEPHALOPATHY (3) 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 (4) Sacral decubitus ulcer Assessment/Plan: -wound care Code(s): L89.159 - PRESSURE ULCER OF SACRAL REGION, UNSPECIFIED STAGE (5) Hyponatremia Assessment/Plan: -NS -RENAL CONSULT Code(s): E87.1 - HYPO-OSMOLALITY AND HYPONATREMIA (6) Sepsis Assessment/Plan: -ABX -ID FOLLOW UP Microbiology 06/14/18 06:40 Blood - Peripheral Venous Blood Culture - Final NO GROWTH AFTER 5 DAYS INCUBATION 06/14/18 07:00 Blood - Peripheral Venous Blood Culture - Final NO GROWTH AFTER 5 DAYS INCUBATION 06/12/18 17:22 Decubiti Gram Stain - Final 06/12/18 17:22 Decubiti Wound Culture - Final Mr S Aureus Vr Ec Faecalis Proteus Mirabilis 06/12/18 17:22 Blood - Peripheral Venous Blood Culture - Final Escherichia Coli Esbl Practical Nursing Teacher 06/12/18 17:10 Blood - Peripheral Venous Blood Culture - Final Escherichia Coli Esbl Practical Nursing Teacher 06/12/18 09:20 Urine - Urine - Catheterized Urine Culture - Final Proteus Mirabilis Code(s): A41.9 - SEPSIS, UNSPECIFIED ORGANISM Qualifiers: Sepsis type: sepsis due to unspecified organism Qualified Code(s): A41.9 - Sepsis, unspecified organism (7) Anemia Assessment/Plan: -NO TRANSFUSION DUE TO TENRIISM BELIEFS Code(s): D64.9 - ANEMIA, UNSPECIFIED
[2018-07-04] MEDS ORDERED: PHYTONADIONE 5 MG TABLET PO ONE (09:56)
--- NOTE | 2018-07-04 10:06 | PN ---
Teaching Attending Note Name of Resident: Anthony Prado ATTENDING PHYSICIAN STATEMENT I saw and evaluated the patient. I reviewed the resident's note and discussed the case with the resident. I agree with the resident's findings and plan as documented. SUBJECTIVE: Patient seen and examined in the ICU. Events from overnight noted. Remains intubated. Now on propofol for vent synchrony. On increased NE @ 10mcq for hemodynamic support. CXR: No gross change Intake & Output 07/01/18 07/02/18 07/03/18 07/04/18 23:59 23:59 23:59 23:59 Intake Total 2780 187 1060 1983.3 Output Total 1100 330 145 10 Balance 1680 -641 242 1019.3 Weight 142 lb 8 oz 139 lb 12.369 oz 158 lb 5 oz Last Vital Signs Temp Pulse Resp BP Pulse Ox 98.3 F 102 H 33 H 136/58 L 100 07/04/18 06:00 07/04/18 09:00 07/04/18 09:00 07/04/18 09:00 07/04/18 08:00 Active Medications Acetaminophen (Ofirmev Injection -) 1,000 mg IVPB Q6H PRN PRN Reason: FEVER Ascorbic Acid (Vitamin C -) 500 mg PO BID [facility] Last Admin: 07/04/18 09:22 Dose: 500 mg Doxycycline Hyclate (Vibramycin -) 100 mg PO BID@1000,1800 [facility] Last Admin: 07/04/18 09:24 Dose: 100 mg Folic Acid (Folic Acid -) 1 mg PO DAILY [facility] Last Admin: 07/04/18 09:22 Dose: 1 mg IV Flush (Picc Line Flush) 8 ml IVPUSH PRN PRN PRN Reason: Protocol Meropenem 1 gm/ Dextrose 100 mls @ 200 mls/hr IVPB Q8H-IV [facility] Last Admin: 07/04/18 02:13 Dose: 200 mls/hr Norepinephrine Bitartrate 8, (000 mcg/ Dextrose) 500 mls @ 18.75 mls/hr IV TITR [facility]; Protocol Last Titration: 07/03/18 23:55 Dose: 10 mcg/min, 37.5 mls/hr Sodium Chloride (Normal Saline -) 1,000 mls @ 80 mls/hr IV ASDIR [facility] Last Admin: 07/03/18 10:33 Dose: 80 mls/hr Propofol (Diprivan -) 1,000,000 mcg in 100 mls @ 1.902 mls/hr IVPB TITR [facility]; Protocol Last Admin: 07/04/18 09:27 Dose: 20 mcg/kg/min, 7.608 mls/hr Insulin Aspart (Novolog Vial Sliding Scale -) 1 vial SQ TIDAC [facility]; Protocol Last Admin: 07/04/18 08:15 Dose: Not Given Multi-Ingredient Ointment (Zinc Oxide) 1 applic TP BID [facility] Last Admin: 07/04/18 09:25 Dose: Not Given Phytonadione (Mephyton -) 5 mg PO ONCE ONE Stop: 07/04/18 09:57 Sodium Chloride (Sodium Chloride Tablet -) 1 gm PO BID [facility] Last Admin: 07/04/18 09:24 Dose: 1 gm Zinc Sulfate (Orazinc -) 220 mg PO DAILY [facility] Last Admin: 07/04/18 09:22 Dose: 220 mg GENERAL: Intubated, poorly responsive HEAD: Normal with no signs of trauma. EYES: Fixed, dilated pupils EARS, NOSE, THROAT: Moist mucous membranes. NECK: supple without JVD LUNGS: diffusely coarse breath sounds HEART: tachy rate and reg rhythm, normal S1 and S2 ABDOMEN: Soft, not distended, globally decreased bowel sounds, PEG in place MUSCULOSKELETAL: No bony deformities UPPER EXTREMITIES: 1+ pulses, warm, well-perfused. No peripheral edema. LOWER EXTREMITIES: 1+ pulses, warm, well-perfused. No peripheral edema. NEUROLOGICAL: minimally responsive, pupils sluggish SKIN: Warm, dry Laboratory Results - last 24 hr 07/03/18 07/03/18 07/03/18 05:30 10:38 10:45 WBC RBC Hgb Hct MCV MCH MCHC RDW Plt Count MPV Absolute Neuts (auto) Neutrophils % Lymphocytes % Monocytes % Eosinophils % Basophils % Nucleated RBC % PT with INR INR PTT (Actin FS) Fibrinogen Sodium Potassium Chloride Carbon Dioxide Anion Gap BUN Creatinine Creat Clearance w eGFR POC Glucometer 120.07952 Random Glucose Calcium Phosphorus Magnesium Total Bilirubin Direct Bilirubin AST ALT Alkaline Phosphatase Ammonia 24.40 Total Protein Albumin Cortisol AM Sample 33.1 07/03/18 07/04/18 07/04/18 16:23 05:25 05:25 WBC 18.3 H RBC 3.10 L Hgb 8.4 L Hct 26.1 L MCV 84.2 MCH 27.0 MCHC 32.0 RDW 24.1 H Plt Count 109 L D MPV 9.4 Absolute Neuts (auto) 16.1 H Neutrophils % 88.2 H Lymphocytes % 7.3 L Monocytes % 3.8 Eosinophils % 0.6 Basophils % 0.1 Nucleated RBC % 0 PT with INR INR PTT (Actin FS) Fibrinogen Sodium 124 L Potassium 4.2 Chloride 94 L Carbon Dioxide 15 L Anion Gap 15 BUN 104 H Creatinine 1.7 H Creat Clearance w eGFR 39.60 POC Glucometer 94.34100 Random Glucose 104 Calcium 7.3 L Phosphorus 4.8 Magnesium 2.0 Total Bilirubin 3.5 H Direct Bilirubin AST 164 H ALT 31 Alkaline Phosphatase 534 H Ammonia Total Protein 6.0 L Albumin 1.3 L Cortisol AM Sample 07/04/18 07/04/18 07/04/18 05:25 05:25 05:25 WBC RBC Hgb Hct MCV MCH MCHC RDW Plt Count MPV Absolute Neuts (auto) Neutrophils % Lymphocytes % Monocytes % Eosinophils % Basophils % Nucleated RBC % PT with INR 21.20 H INR 1.79 H PTT (Actin FS) 45.2 H Fibrinogen 319.0 Sodium Potassium Chloride Carbon Dioxide Anion Gap BUN Creatinine Creat Clearance w eGFR POC Glucometer Random Glucose Calcium Phosphorus Magnesium Total Bilirubin Direct Bilirubin 3.0 H AST ALT Alkaline Phosphatase Ammonia Total Protein Albumin Cortisol AM Sample 07/04/18 06:36 WBC RBC Hgb Hct MCV MCH MCHC RDW Plt Count MPV Absolute Neuts (auto) Neutrophils % Lymphocytes % Monocytes % Eosinophils % Basophils % Nucleated RBC % PT with INR INR PTT (Actin FS) Fibrinogen Sodium Potassium Chloride Carbon Dioxide Anion Gap BUN Creatinine Creat Clearance w eGFR POC Glucometer 134.96751 Random Glucose Calcium Phosphorus Magnesium Total Bilirubin Direct Bilirubin AST ALT Alkaline Phosphatase Ammonia Total Protein Albumin Cortisol AM Sample Problem List - Problems (1) Anoxic brain injury Code(s): G93.1 - ANOXIC BRAIN DAMAGE, NOT ELSEWHERE CLASSIFIED (2) Acute respiratory failure with hypoxia Code(s): J96.01 - ACUTE RESPIRATORY FAILURE WITH HYPOXIA (3) Aspiration into airway Code(s): T17.908A - UNSP FB IN RESP TRACT, PART UNSP CAUSING OTH INJURY, INIT (4) CAD (coronary artery disease) Code(s): I25.10 - ATHSCL HEART DISEASE OF [place] CORONARY ARTERY W/O ANG PCTRS (5) HTN (hypertension) Code(s): I10 - ESSENTIAL (PRIMARY) HYPERTENSION (6) Diabetes Code(s): E11.9 - TYPE 2 DIABETES MELLITUS WITHOUT COMPLICATIONS (7) Abnormal liver enzymes Code(s): R74.8 - ABNORMAL LEVELS OF OTHER SERUM ENZYMES (8) Dysphagia Code(s): R13.10 - DYSPHAGIA, UNSPECIFIED (9) Liver lesion Code(s): K76.9 - LIVER DISEASE, UNSPECIFIED (10) Sacral decubitus ulcer, stage IV Code(s): L89.154 - PRESSURE ULCER OF SACRAL REGION, STAGE 4 (11) Sepsis Code(s): A41.9 - SEPSIS, UNSPECIFIED ORGANISM Qualifiers: Sepsis type: sepsis due to unspecified organism Qualified Code(s): A41.9 - Sepsis, unspecified organism (12) Anemia Code(s): D64.9 - ANEMIA, UNSPECIFIED (13) Bacteremia Code(s): R78.81 - BACTEREMIA (14) Normocytic normochromic anemia Code(s): D64.9 - ANEMIA, UNSPECIFIED (15) Sacral decubitus ulcer, stage III Code(s): L89.153 - PRESSURE ULCER OF SACRAL REGION, STAGE 3 ASSESSMENT/PLAN: Acute hypoxic respiratory failure secondary to aspiration NERY Sepsis due to ESBL bacteremia / sacral ulcer S/P PEG Suspected Metastatic liver CA Anemia Parkinsons COPD IDDM CAD HTN HLD Wean Vent settings as tolerated Follow Neuro exam ABX per ID NGT as tolerated IVF by Renal Glycemic control Vitamin K x 1 Need further GOC discussions with family as overall prognosis appears grave for meaningful recovery. Apparently patient was referred for Palliative Care in 2017. Dr Bermudez Critical care time spent in reviewing chart, evaluating patient and formulating plan - 36 minutes.
--- NOTE | 2018-07-04 10:27 | PN ---
Progress Note (short form) - Note Progress Note: RENAL Pt is intubated and unresponsive has been oliguric Last Vital Signs Temp Pulse Resp BP Pulse Ox 98.3 F 102 H 33 H 136/58 L 100 07/04/18 06:00 07/04/18 09:00 07/04/18 09:00 07/04/18 09:00 07/04/18 08:00 lungs bilat air entry cvs s1s2 rr abd soft ext +edema neuro not responsive CBC, BMP 07/04/18 05:25 07/04/18 05:25 Current Medications Generic Name Dose Route Start Last Admin Trade Name Freq PRN Reason Stop Dose Admin Acetaminophen 1,000 mg 07/02/18 04:52 Ofirmev Injection - IVPB Q6H PRN FEVER Ascorbic Acid 500 mg 06/13/18 22:00 07/04/18 09:22 Vitamin C - PO 500 mg BID [facility] Administration Doxycycline Hyclate 100 mg 06/18/18 18:00 07/04/18 09:24 Vibramycin - PO 100 mg BID@1000,1800 [facility] Administration Folic Acid 1 mg 06/15/18 10:00 07/04/18 09:22 Folic Acid - PO 1 mg DAILY [facility] Administration IV Flush 8 ml 06/21/18 09:17 Picc Line Flush IVPUSH PRN PRN Protocol Meropenem 1 gm/ Dextrose 100 mls @ 200 mls/hr 07/02/18 14:30 07/04/18 02:13 IVPB 200 mls/hr Q8H-IV [facility] Administration Norepinephrine Bitartrate 8, 500 mls @ 18.75 mls/hr 07/02/18 20:30 07/03/18 23:55 000 mcg/ Dextrose IV 10 mcg/min TITR [facility] 37.5 mls/hr Titration Protocol 5 MCG/MIN Sodium Chloride 1,000 mls @ 80 mls/hr 07/03/18 09:47 07/03/18 10:33 Normal Saline - IV 80 mls/hr ASDIR [facility] Administration Propofol 1,000,000 mcg in 100 mls @ 1.902 mls/hr 07/03/18 22:00 07/04/18 09: 27 Diprivan - IVPB 20 mcg/kg/min TITR [facility] 7.608 mls/hr Administration Protocol 5 MCG/KG/MIN Insulin Aspart 1 vial 07/03/18 07:00 07/04/18 08:15 Novolog Vial Sliding Scale - SQ Not Given TIDAC [facility] Protocol Multi-Ingredient Ointment 1 applic 06/13/18 22:00 07/04/18 09:25 Zinc Oxide TP Not Given BID [facility] Sodium Chloride 1 gm 07/02/18 16:50 07/04/18 09:24 Sodium Chloride Tablet - PO 1 gm BID [facility] Administration Zinc Sulfate 220 mg 06/21/18 10:00 07/04/18 09:22 Orazinc - PO 220 mg DAILY [facility] Administration Impression 1. hyponatremia 2. JORDAN 3. resp failure s/p intubation 4. possible liver mets 5. s/p peg 6. s/p sepsis 7. CAD 8. HTN 9. hyperlipidemia 10. parkinsons 11. DM 12. anemia Plan worsening hyponatremia likely due to d5w and oliguric state. Problem is we cant give lasix if he is on d5w because sodium would drop more. Would change levophed and ivpb's to saline and stop NS drip. Repeat BMP around 4 pm today. If sodium still dropping would give hypertonic saline. The last resort would be dialysis, but GOC should be established first. Dr calabrese will follow again tomorrow MV
--- NOTE | 2018-07-04 11:20 | PN ---
Physical Exam: SUBJECTIVE: Patient seen and examined. Pt. was tachycardic to 144, EKG showed A.Fib, given Digoxin x 2, Amiodarone x 1, and IV propofol was restarted and then discontinued this AM to evaluate mental status. OBJECTIVE: Vital Signs Period Temp Pulse Resp BP Sys/Prado Pulse Ox Last 24 Hr 97.1 F-98.3 F 66-121 22-39 89-136/47-70 100 GENERAL: Sedated, arousable to painful stimuli HEAD: Normal with no signs of trauma. EYES: PERRL, extraocular movements intact, sclera anicteric, conjunctiva clear. No ptosis. ENT: Ears normal, nares patent, oropharynx clear without exudates, moist mucous membranes. LUNGS: Mechanical ventilation, wheezing, no crackles HEART: Irregular rate and rhythm ABDOMEN: Soft, nontender, nondistended, normoactive bowel sounds EXTREMITIES: 1+ dorsal pedal pulses, 2+ right radial pulse, warm, well-perfused , no calf tenderness, no edema. Laboratory Results - last 24 hr 07/03/18 07/03/18 07/03/18 05:30 10:45 16:23 WBC RBC Hgb Hct MCV MCH MCHC RDW Plt Count MPV Absolute Neuts (auto) Neutrophils % Lymphocytes % Monocytes % Eosinophils % Basophils % Nucleated RBC % PT with INR INR PTT (Actin FS) Fibrinogen Sodium Potassium Chloride Carbon Dioxide Anion Gap BUN Creatinine Creat Clearance w eGFR POC Glucometer 120.72897 94.92852 Random Glucose Calcium Phosphorus Magnesium Total Bilirubin Direct Bilirubin AST ALT Alkaline Phosphatase Total Protein Albumin Cortisol AM Sample 33.1 07/04/18 07/04/18 07/04/18 05:25 05:25 05:25 WBC 18.3 H RBC 3.10 L Hgb 8.4 L Hct 26.1 L MCV 84.2 MCH 27.0 MCHC 32.0 RDW 24.1 H Plt Count 109 L D MPV 9.4 Absolute Neuts (auto) 16.1 H Neutrophils % 88.2 H Lymphocytes % 7.3 L Monocytes % 3.8 Eosinophils % 0.6 Basophils % 0.1 Nucleated RBC % 0 PT with INR 21.20 H INR 1.79 H PTT (Actin FS) 45.2 H Fibrinogen Sodium 124 L Potassium 4.2 Chloride 94 L Carbon Dioxide 15 L Anion Gap 15 BUN 104 H Creatinine 1.7 H Creat Clearance w eGFR 39.60 POC Glucometer Random Glucose 104 Calcium 7.3 L Phosphorus 4.8 Magnesium 2.0 Total Bilirubin 3.5 H Direct Bilirubin AST 164 H ALT 31 Alkaline Phosphatase 534 H Total Protein 6.0 L Albumin 1.3 L Cortisol AM Sample 07/04/18 07/04/18 07/04/18 05:25 05:25 06:36 WBC RBC Hgb Hct MCV MCH MCHC RDW Plt Count MPV Absolute Neuts (auto) Neutrophils % Lymphocytes % Monocytes % Eosinophils % Basophils % Nucleated RBC % PT with INR INR PTT (Actin FS) Fibrinogen 319.0 Sodium Potassium Chloride Carbon Dioxide Anion Gap BUN Creatinine Creat Clearance w eGFR POC Glucometer 134.09430 Random Glucose Calcium Phosphorus Magnesium Total Bilirubin Direct Bilirubin 3.0 H AST ALT Alkaline Phosphatase Total Protein Albumin Cortisol AM Sample Active Medications Current Medications Acetaminophen (Ofirmev Injection -) 1,000 mg IVPB Q6H PRN PRN Reason: FEVER Ascorbic Acid (Vitamin C -) 500 mg PO BID [facility] Last Admin: 07/04/18 09:22 Dose: 500 mg Doxycycline Hyclate (Vibramycin -) 100 mg PO BID@1000,1800 [facility] Last Admin: 07/04/18 09:24 Dose: 100 mg Folic Acid (Folic Acid -) 1 mg PO DAILY [facility] Last Admin: 07/04/18 09:22 Dose: 1 mg IV Flush (Picc Line Flush) 8 ml IVPUSH PRN PRN PRN Reason: Protocol Sodium Chloride (Normal Saline -) 1,000 mls @ 80 mls/hr IV ASDIR [facility] Last Admin: 07/03/18 10:33 Dose: 80 mls/hr Propofol (Diprivan -) 1,000,000 mcg in 100 mls @ 1.902 mls/hr IVPB TITR [facility]; Protocol Last Admin: 07/04/18 09:27 Dose: 20 mcg/kg/min, 7.608 mls/hr Meropenem 1 gm/ Sodium (Chloride) 50 mls @ 200 mls/hr IVPB Q8H-IV [facility] Norepinephrine Bitartrate 8, (000 mcg/ Sodium Chloride) 250 mls @ 9.37 mls/hr IV TITR [facility]; Protocol Insulin Aspart (Novolog Vial Sliding Scale -) 1 vial SQ TIDAC [facility]; Protocol Last Admin: 07/04/18 08:15 Dose: Not Given Multi-Ingredient Ointment (Zinc Oxide) 1 applic TP BID [facility] Last Admin: 07/04/18 09:25 Dose: Not Given Sodium Chloride (Sodium Chloride Tablet -) 1 gm PO BID [facility] Last Admin: 07/04/18 09:24 Dose: 1 gm Zinc Sulfate (Orazinc -) 220 mg PO DAILY [facility] Last Admin: 07/04/18 09:22 Dose: 220 mg ASSESSMENT/PLAN: 72 y/o M w/ PMH PD, CVA, HTN, HLD, IDDM, osteomyelitis, anemia, COPD, CAD, 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 #neurologic -likely anoxic brain injury -GCS 4 -continue life support measures #pulmonary -aspiration noted during intubation -titrate vent for O2 sat > 90% -improved on re-repeat ABG, pH 7.28 #cardiac -septic shock, titrate levophed to maintain MAP > 65 -avoid AV chris blocking agents -NS @ 80 -EKG (07/04/18): showed Afib w/ RVR responded well as noted above #ID -sepsis 2/2 UTI and chronic ulcer infection, now in septic shock on pressors -IV doxycycline and meropenem with ID on board #renal -switched all meds to fluids w/ NS -ongoing hyponatremia, Na 124 -Bladder Scan showed 0ml post-void residual volume, nor any obstructions -Na acceptable given liver disease per renal -worsening JORDAN: BUN 104, Cr 1.7 -NS 80 -per renal, hold feeds to observe trend in BUN #GI -LFTs elevated, INR and T Bilirubin worsening -stable hypoalbuminemia, no indication for albumin infusion -GI on board, agrees to hold feed for one day per renal recs -ammonia wnl, neurologic issues therefore likely 2/2 anoxic injury -re-evaluate daily for feeds #heme-onc -chronic anemia -procrit as per heme -PO vitamin K -thrombocytopenic, no indication for transfusion at present -declines blood products d/t worship views -widely metastatic disease, prognosis grave -GOC initiated with HCP #FEN -NS 80 -All fluids switched to NS and double concentrated. -CMP -NPO #PPx -DVT: SCDs -GI: not indicated #dispo -monitor in ICU -full code
[2018-07-04] MEDS: SODIUM CHLORIDE IV SCH (13:50)
[2018-07-04] MEDS: NOREPINEPHRINE BITARTRATE IV SCH (13:50)
[2018-07-04] MEDS: SODIUM CHLORIDE 1,000 ML IV SCH (13:52)
--- NOTE | 2018-07-04 13:57 | PN ---
Progress Note, Physician History of Present Illness: Pt on Norepinephrine drip/intubated, afebrile but wbc elevated. - Current Medication List Current Medications: Active Medications Acetaminophen (Ofirmev Injection -) 1,000 mg IVPB Q6H PRN PRN Reason: FEVER Ascorbic Acid (Vitamin C -) 500 mg PO BID [facility] Last Admin: 07/04/18 09:22 Dose: 500 mg Doxycycline Hyclate (Vibramycin -) 100 mg PO BID@1000,1800 [facility] Last Admin: 07/04/18 09:24 Dose: 100 mg Folic Acid (Folic Acid -) 1 mg PO DAILY [facility] Last Admin: 07/04/18 09:22 Dose: 1 mg IV Flush (Picc Line Flush) 8 ml IVPUSH PRN PRN PRN Reason: Protocol Sodium Chloride (Normal Saline -) 1,000 mls @ 80 mls/hr IV ASDIR [facility] Last Admin: 07/03/18 10:33 Dose: 80 mls/hr Propofol (Diprivan -) 1,000,000 mcg in 100 mls @ 1.902 mls/hr IVPB TITR [facility]; Protocol Last Admin: 07/04/18 09:27 Dose: 20 mcg/kg/min, 7.608 mls/hr Meropenem 1 gm/ Sodium (Chloride) 50 mls @ 200 mls/hr IVPB Q8H-IV JEF Norepinephrine Bitartrate 8, (000 mcg/ Sodium Chloride) 250 mls @ 9.37 mls/hr IV TITR [facility]EF; Protocol Insulin Aspart (Novolog Vial Sliding Scale -) 1 vial SQ TIDAC [facility]; Protocol Last Admin: 07/04/18 11:30 Dose: Not Given Multi-Ingredient Ointment (Zinc Oxide) 1 applic TP BID [facility] Last Admin: 07/04/18 09:25 Dose: Not Given Sodium Chloride (Sodium Chloride Tablet -) 1 gm PO BID [facility] Last Admin: 07/04/18 09:24 Dose: 1 gm Zinc Sulfate (Orazinc -) 220 mg PO DAILY [facility] Last Admin: 07/04/18 09:22 Dose: 220 mg - Objective Vital Signs: Vital Signs Temperature 98.3 F 07/04/18 06:00 Pulse Rate 98 H 07/04/18 10:00 Respiratory Rate 33 H 07/04/18 12:44 Blood Pressure 121/62 07/04/18 10:00 O2 Sat by Pulse Oximetry (%) 100 07/04/18 08:00 Constitutional: Yes: No Distress Cardiovascular: Yes: Tachycardia Respiratory: Yes: Mechanically Ventilated Gastrointestinal: Yes: Normal Bowel Sounds, Soft Extremities: Yes: WNL Integumentary: Yes: Pressure Ulcer (Sacral DU with tunneling, serosanguinous drainage +MRSA/VRE/PRoteus) Wound/Incision: Yes: Dressing Removed Neurological: Yes: Other (sedate) Labs: CBC, BMP 07/04/18 05:25 07/04/18 05:25 INR, PTT INR 1.79 (0.83-1.09) H 07/04/18 05:25 Fibrinogen 319.0 mg/dL (238-498) 07/04/18 05:25 - ....Imaging Chest X-ray: Report Reviewed 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 (3) Sacral decubitus ulcer Code(s): L89.159 - PRESSURE ULCER OF SACRAL REGION, UNSPECIFIED STAGE (4) Sepsis Code(s): A41.9 - SEPSIS, UNSPECIFIED ORGANISM Qualifiers: Sepsis type: sepsis due to unspecified organism Qualified Code(s): A41.9 - Sepsis, unspecified organism (5) Bacteremia Code(s): R78.81 - BACTEREMIA (6) Normocytic normochromic anemia Code(s): D64.9 - ANEMIA, UNSPECIFIED Assessment/Plan Acute Respiratory failure/Mech ventilator/Shock Aspiration NERY s/p ESBL+ bacteremia sacral DU / polymicrobial Metastatic liver CA COPD IDDM CAD HTN HLD Parkinsons -- wbc trending up, hypotensive -- cont. Meropenem/Doxycycline, will give Daptomycin (multiple antibiotic allergies), check cpk -- repeat blood/resp cultures -- monitor wbc trend -- pt intubated on Norepinephrine drip -- currently afebrile rest of care per ICU, case discussed cc time: 40 min
[2018-07-04] MEDS ORDERED: DAPTOMYCIN 420 MG in SODIUM CHLORIDE 50 ML IVPB SCH (15:00)
[2018-07-04] MEDS: MEROPENEM 1 GM in SODIUM CHLORIDE 50 ML IVPB SCH (18:08)
[2018-07-04] MEDS ORDERED: DAPTOMYCIN 420 MG in SODIUM CHLORIDE 50 ML IVPB ONE (18:30)
[2018-07-04 19:33] LABS: ANION GAP 11 MMOL/L (8-16); CALCIUM 7.4 mg/dL (8.5-10.1); CHLORIDE 98 mmol/L (98-107); CO2 12 mmol/L (21-32); CREATININE 1.7 mg/dL (0.55-1.3); GLUCOSE,RANDOM 76 mg/dL (74-106); POTASSIUM 4.2 mmol/L (3.5-5.1); SODIUM 121 mmol/L (136-145)
[2018-07-04] MEDS ORDERED: SODIUM CHLORIDE 3% 500 ML/500 ML INFUS.BAG IV ONE (19:36)
--- NOTE | 2018-07-04 19:40 | PN ---
Progress Note (short form) - Note Progress Note: BMP back Na dropped to 121. per Nephrology recommendation, giving 3% saline 100 cc over 10 min only. will follow repeat BMP Problem List - Problems (1) Anoxic brain injury Code(s): G93.1 - ANOXIC BRAIN DAMAGE, NOT ELSEWHERE CLASSIFIED (2) Acute respiratory failure with hypoxia Code(s): J96.01 - ACUTE RESPIRATORY FAILURE WITH HYPOXIA (3) Aspiration into airway Code(s): T17.908A - UNSP FB IN RESP TRACT, PART UNSP CAUSING OTH INJURY, INIT (4) CAD (coronary artery disease) Code(s): I25.10 - ATHSCL HEART DISEASE OF [place] CORONARY ARTERY W/O ANG PCTRS (5) HTN (hypertension) Code(s): I10 - ESSENTIAL (PRIMARY) HYPERTENSION (6) Diabetes Code(s): E11.9 - TYPE 2 DIABETES MELLITUS WITHOUT COMPLICATIONS (7) Abnormal liver enzymes Code(s): R74.8 - ABNORMAL LEVELS OF OTHER SERUM ENZYMES (8) Dysphagia Code(s): R13.10 - DYSPHAGIA, UNSPECIFIED (9) Liver lesion Code(s): K76.9 - LIVER DISEASE, UNSPECIFIED (10) Sacral decubitus ulcer, stage IV Code(s): L89.154 - PRESSURE ULCER OF SACRAL REGION, STAGE 4 (11) Sepsis Code(s): A41.9 - SEPSIS, UNSPECIFIED ORGANISM Qualifiers: Sepsis type: sepsis due to unspecified organism Qualified Code(s): A41.9 - Sepsis, unspecified organism (12) Anemia Code(s): D64.9 - ANEMIA, UNSPECIFIED (13) Bacteremia Code(s): R78.81 - BACTEREMIA (14) Normocytic normochromic anemia Code(s): D64.9 - ANEMIA, UNSPECIFIED (15) Sacral decubitus ulcer, stage III Code(s): L89.153 - PRESSURE ULCER OF SACRAL REGION, STAGE 3
[2018-07-04 20:17] LABS: BLOOD UREA NITROGEN 106 mg/dL (7-18)
[2018-07-04 20:30] LABS: BASO % 0.2 % (0-2.0); EOS % 1.3 % (0-4.5); HEMATOCRIT 22.4 % (35.4-49); HEMOGLOBIN 7.1 GM/dL (11.7-16.9); LYMPH % 8.5 % (8-40); MCH 26.5 pg (25.7-33.7); MCHC 31.7 g/dl (32.0-35.9); MEAN CELL VOLUME 83.6 fl (80-96); MEAN PLT VOLUME 8.8 fl (7.5-11.1); MONO % 3.9 % (3.8-10.2); NEUT % 86.1 % (42.8-82.8); PLATELET COUNT 92 K/MM3 (134-434); RBC 2.67 M/mm3 (4.00-5.60); RDW 23.9 % (11.9-15.9); WHITE BLOOD COUNT 13.6 K/mm3 (4.0-10.0)
[2018-07-04 21:00] LABS: MAGNESIUM 1.8 mg/dL (1.8-2.4); PHOSPHOROUS 4.2 mg/dL (2.5-4.9)
[2018-07-04 21:03] LABS: ANISOCYTOSIS 3+; MACROCYTOSIS 1+
[2018-07-04 21:04] LABS: PLATELET ESTIMATE DECREASED
[2018-07-04 23:31] LABS: ANION GAP 15 MMOL/L (8-16); BLOOD UREA NITROGEN 103 mg/dL (7-18); CALCIUM 7.1 mg/dL (8.5-10.1); CHLORIDE 98 mmol/L (98-107); CO2 14 mmol/L (21-32); CREATININE 1.8 mg/dL (0.55-1.3); GLUCOSE,RANDOM 70 mg/dL (74-106); POTASSIUM 3.9 mmol/L (3.5-5.1); SODIUM 127 mmol/L (136-145)
[2018-07-05] MEDS: MEROPENEM 1 GM in SODIUM CHLORIDE 50 ML IVPB SCH ×2 (01:10→09:43)
[2018-07-05 01:18] LABS: ANION GAP 15 MMOL/L (8-16); CHLORIDE 98 mmol/L (98-107); CO2 14 mmol/L (21-32); CREATININE 1.8 mg/dL (0.55-1.3); GLUCOSE,RANDOM 67 mg/dL (74-106); POTASSIUM 3.9 mmol/L (3.5-5.1); SODIUM 127 mmol/L (136-145)
[2018-07-05 01:27] LABS: BLOOD UREA NITROGEN 106 mg/dL (7-18)
[2018-07-05 06:33] LABS: BASO % 0.2 % (0-2.0); EOS % 0.9 % (0-4.5); HEMATOCRIT 23.1 % (35.4-49); LYMPH % 8.3 % (8-40); MCH 25.9 pg (25.7-33.7); MCHC 30.5 g/dl (32.0-35.9); MEAN CELL VOLUME 84.8 fl (80-96); MEAN PLT VOLUME 8.7 fl (7.5-11.1); MONO % 3.3 % (3.8-10.2); NEUT % 87.3 % (42.8-82.8); PLATELET COUNT 89 K/MM3 (134-434); RBC 2.72 M/mm3 (4.00-5.60); RDW 24.1 % (11.9-15.9); WHITE BLOOD COUNT 16.5 K/mm3 (4.0-10.0)
[2018-07-05] MEDS: INSULIN SLIDING SCALE (NOVOLOG) 1 VIAL SQ SCH ×3 (06:37→17:14)
[2018-07-05 07:51] LABS: ANION GAP 14 MMOL/L (8-16); BLOOD UREA NITROGEN 104 mg/dL (7-18); CHLORIDE 98 mmol/L (98-107); CO2 14 mmol/L (21-32); CREATININE 1.8 mg/dL (0.55-1.3); GLUCOSE,RANDOM 58 mg/dL (74-106); MAGNESIUM 1.9 mg/dL (1.8-2.4); PHOSPHOROUS 4.6 mg/dL (2.5-4.9); SODIUM 126 mmol/L (136-145)
[2018-07-05] MEDS ORDERED: DEXTROSE 50%-WATER - 25 GM/50 ML VIAL IVPUSH ONE (08:29)
[2018-07-05] MEDS ORDERED: PT OWN MED DRAWER 7, Y5N ONE (09:06)
[2018-07-05 09:10] LABS: ALBUMIN 1.2 g/dl (3.4-5.0); ALK PHOS 508 U/L (45-117); BILIRUBIN,DIRECT 3.3 mg/dL (0.0-0.2); BILIRUBIN,TOTAL 3.9 mg/dL (0.2-1); SGOT/AST 107 U/L (15-37); SGPT/ALT 18 U/L (13-61); TOT PROT 5.6 g/dl (6.4-8.2)
[2018-07-05] MEDS: ZINC SULFATE 220 MG CAPSULE (FP) PO SCH (09:43)
[2018-07-05] MEDS: ASCORBIC ACID 500 MG TABLET (FP) PO SCH ×2 (09:43→21:18)
[2018-07-05] MEDS: DOXYCYCLINE HYCLATE 100 MG CAPSULE PO SCH ×2 (09:43→17:49)
[2018-07-05] MEDS: SODIUM CHLORIDE 1 GM TABLET PO SCH ×2 (09:44→21:24)
[2018-07-05] MEDS ORDERED: DEXTROSE 50%-WATER 25 GM/50 ML DISP.SYRIN ONE (09:45)
[2018-07-05] MEDS: SODIUM CHLORIDE 1,000 ML IV SCH (09:46)
--- NOTE | 2018-07-05 10:07 | PN ---
Physical Exam: SUBJECTIVE: Patient seen and examined at bedside. Remains intubated and sedated. Overnight events notes. OBJECTIVE: Vital Signs Period Temp Pulse Resp BP Sys/Prado Pulse Ox Last 24 Hr 98.1 F-98.5 F 81-99 18-34 107-132/48-63 100-100 GENERAL: Sedated, arousable to painful stimuli HEAD: NCAT EYES: PERRL,sclera anicteric, conjunctiva clear. No ptosis. ENT: moist mucous membranes. LUNGS: Mechanical ventilation HEART:irregular, NL S1S2 ABDOMEN:soft, mod. distended, peg in place. EXTREMITIES: 1+ dorsal pedal pulses, 2+ right radial pulse, warm, well-perfused , Upper ext. 2+ edema, Laboratory Results - last 24 hr 07/04/18 07/04/18 07/04/18 11:27 16:00 17:45 WBC RBC Hgb Hct MCV MCH MCHC RDW Plt Count MPV Absolute Neuts (auto) Neutrophils % Neutrophils % (Manual) Band Neutrophils % Lymphocytes % Lymphocytes % (Manual) Monocytes % Monocytes % (Manual) Eosinophils % Basophils % Nucleated RBC % Hypochromia Platelet Estimate Polychromasia Anisocytosis Microcytosis Macrocytosis Schistocytes Sodium 121 L Potassium 4.2 Chloride 98 Carbon Dioxide 12 L Anion Gap 11 BUN 106 H* Creatinine 1.7 H Creat Clearance w eGFR 39.60 POC Glucometer 122.74873 113.98264 Random Glucose 76 Calcium 7.4 L Phosphorus Magnesium Total Bilirubin Direct Bilirubin AST ALT Alkaline Phosphatase Creatine Kinase Creatine Kinase Index CK-MB (CK-2) Total Protein Albumin 07/04/18 07/04/18 07/04/18 17:45 19:30 22:40 WBC 13.6 H RBC 2.67 L Hgb 7.1 L Hct 22.4 L MCV 83.6 MCH 26.5 MCHC 31.7 L RDW 23.9 H Plt Count 92 L MPV 8.8 Absolute Neuts (auto) 11.7 H Neutrophils % 86.1 H Neutrophils % (Manual) 85.0 H Band Neutrophils % 3.0 Lymphocytes % 8.5 Lymphocytes % (Manual) 8.0 D Monocytes % 3.9 Monocytes % (Manual) 4 D Eosinophils % 1.3 D Basophils % 0.2 Nucleated RBC % 0 Hypochromia 2+ Platelet Estimate Decreased Polychromasia 1+ Anisocytosis 3+ Microcytosis 2+ Macrocytosis 1+ Schistocytes 2+ Sodium 127 L Potassium 3.9 Chloride 98 Carbon Dioxide 14 L Anion Gap 15 BUN 103 H Creatinine 1.8 H Creat Clearance w eGFR 37.07 POC Glucometer Random Glucose 70 L Calcium 7.1 L Phosphorus 4.2 Magnesium 1.8 Total Bilirubin Direct Bilirubin AST ALT Alkaline Phosphatase Creatine Kinase Creatine Kinase Index CK-MB (CK-2) Total Protein Albumin 07/04/18 07/05/18 07/05/18 23:50 00:25 05:30 WBC RBC Hgb Hct MCV MCH MCHC RDW Plt Count MPV Absolute Neuts (auto) Neutrophils % Neutrophils % (Manual) Band Neutrophils % Lymphocytes % Lymphocytes % (Manual) Monocytes % Monocytes % (Manual) Eosinophils % Basophils % Nucleated RBC % Hypochromia Platelet Estimate Polychromasia Anisocytosis Microcytosis Macrocytosis Schistocytes Sodium 127 L 126 L Potassium 3.9 4.0 Chloride 98 98 Carbon Dioxide 14 L 14 L Anion Gap 15 14 BUN 106 H* 104 H Creatinine 1.8 H 1.8 H Creat Clearance w eGFR 37.07 37.07 POC Glucometer 94.81894 Random Glucose 67 L 58 L Calcium 7.0 L 7.0 L Phosphorus 4.6 Magnesium 1.9 Total Bilirubin 3.9 H Direct Bilirubin 3.3 H AST 107 H ALT 18 Alkaline Phosphatase 508 H Creatine Kinase 470 H Creatine Kinase Index 0.3 CK-MB (CK-2) 1.7 Total Protein 5.6 L Albumin 1.2 L 07/05/18 05:30 WBC 16.5 H RBC 2.72 L Hgb 7.0 L Hct 23.1 L MCV 84.8 MCH 25.9 MCHC 30.5 L RDW 24.1 H Plt Count 89 L MPV 8.7 Absolute Neuts (auto) 14.4 H Neutrophils % 87.3 H Neutrophils % (Manual) Band Neutrophils % Lymphocytes % 8.3 Lymphocytes % (Manual) Monocytes % 3.3 L Monocytes % (Manual) Eosinophils % 0.9 Basophils % 0.2 Nucleated RBC % 0 Hypochromia Platelet Estimate Polychromasia Anisocytosis Microcytosis Macrocytosis Schistocytes Sodium Potassium Chloride Carbon Dioxide Anion Gap BUN Creatinine Creat Clearance w eGFR POC Glucometer Random Glucose Calcium Phosphorus Magnesium Total Bilirubin Direct Bilirubin AST ALT Alkaline Phosphatase Creatine Kinase Creatine Kinase Index CK-MB (CK-2) Total Protein Albumin Active Medications Generic Name Dose Route Start Last Admin Trade Name Freq PRN Reason Stop Dose Admin Acetaminophen 1,000 mg 07/02/18 04:52 Ofirmev Injection - IVPB Q6H PRN FEVER Ascorbic Acid 500 mg 06/13/18 22:00 07/05/18 09:43 Vitamin C - PO 500 mg BID JEF Administration Doxycycline Hyclate 100 mg 06/18/18 18:00 07/05/18 09:43 Vibramycin - PO 100 mg BID@1000,1800 JEF Administration Folic Acid 1 mg 06/15/18 10:00 07/04/18 09:22 Folic Acid - PO 1 mg DAILY JEF Administration IV Flush 8 ml 06/21/18 09:17 Picc Line Flush IVPUSH PRN PRN Protocol Sodium Chloride 1,000 mls @ 80 mls/hr 07/03/18 09:47 07/05/18 09:46 Normal Saline - IV Not Given ASDIR JEF Propofol 1,000,000 mcg in 100 mls @ 1.902 mls/hr 07/03/18 22:00 07/04/18 09: 27 Diprivan - IVPB 20 mcg/kg/min TITR JEF 7.608 mls/hr Administration Protocol 5 MCG/KG/MIN Meropenem 1 gm/ Sodium 50 mls @ 200 mls/hr 07/04/18 10:24 07/05/18 09:43 Chloride IVPB 200 mls/hr Q8H-IV JEF Administration Norepinephrine Bitartrate 8, 250 mls @ 9.37 mls/hr 07/04/18 11:08 07/04/18 19 :00 000 mcg/ Sodium Chloride IV 4 mcg/min TITR JEF 7.5 mls/hr Titration Protocol 5 MCG/MIN Daptomycin 420 mg/ Sodium 50 mls @ 50 mls/hr 07/04/18 18:08 Chloride IVPB DAILY [facility] Protocol Insulin Aspart 1 vial 07/03/18 07:00 07/05/18 06:37 Novolog Vial Sliding Scale - SQ Not Given TIDAC [facility] Protocol Multi-Ingredient Ointment 1 applic 06/13/18 22:00 07/04/18 21:57 Zinc Oxide TP 1 applic BID JEF Administration Sodium Chloride 1 gm 07/02/18 16:50 07/05/18 09:44 Sodium Chloride Tablet - PO 1 gm BID JEF Administration Zinc Sulfate 220 mg 06/21/18 10:00 07/05/18 09:43 Orazinc - PO 220 mg DAILY JEF Administration ASSESSMENT/PLAN: 72 y/o patient resident of facility, with parkinsons disease, HTN, HLD, COPD, type 1 diabetes, osteomyelitis, heart disease, GERD, anemia, and depression, severe normocytic anemia, admitted with sacral decubitus, G- bacteremia, anemia. Problem List - Problems (1) Liver lesion Assessment/Plan: * CEA-->707,CA-19.9---> 14,400 * These values are virtually diagnostic of malignancy most likely pancreatic ca. with liver mets. * HCP proxy has been advised against biopsy ongoing discussion about GOC. (2) Anemia Assessment/Plan: Anemia- low Fe++, Low TIBC, elevated ferritin compatible with chronic disease * normal transfusion thresholds. Visit type - Emergency Visit Emergency Visit: Yes ED Registration Date: 06/12/18 Care time: The patient presented to the Emergency Department on the above date and was hospitalized for further evaluation of their emergent condition. - New Patient This patient is new to me today: No - Critical Care Critical Care patient: Yes Total Critical Care Time (in minutes): 42 Critical Care Statement: The care of this patient involved high complexity decision making to prevent further life threatening deterioration of the patient 's condition and/or to evaluate & treat vital organ system(s) failure or risk of failure.
[2018-07-05] MEDS: FOLIC ACID 1 MG TABLET (FP) PO SCH (10:17)
--- NOTE | 2018-07-05 10:32 | EKG ---
Test Reason : Blood Pressure : / mmHG Vent. Rate : 100 BPM Atrial Rate : 100 BPM P-R Int : 000 ms QRS Dur : 104 ms QT Int : 394 ms P-R-T Axes : 024 -45 146 degrees QTc Int : 508 ms ATRIAL FIBRILLATION WITH OCCASIONAL PREMATURE VENTRICULAR COMPLEXES AND PREMATURE ATRIAL COMPLEXES LEFT AXIS DEVIATION LOW VOLTAGE QRS CANNOT RULE OUT ANTEROSEPTAL INFARCT (CITED ON OR BEFORE 18-MAR-2018) PROLONGED QT ABNORMAL ECG WHEN COMPARED WITH ECG OF 04-JUL-2018 00:24, VENT. RATE HAS DECREASED Confirmed by TORO NEWTON, SILVANA ([id number]) on 07/05/2018 10:32:10 AM Referred By: Nabeel CALLOWAY Confirmed By:SILVANA ENGEL MD
--- NOTE | 2018-07-05 10:33 | EKG ---
Test Reason : Blood Pressure : / mmHG Vent. Rate : 117 BPM Atrial Rate : 092 BPM P-R Int : 000 ms QRS Dur : 102 ms QT Int : 352 ms P-R-T Axes : 000 -54 131 degrees QTc Int : 491 ms ATRIAL FIBRILLATION WITH RAPID VENTRICULAR RESPONSE WITH PREMATURE VENTRICULAR OR ABERRANTLY CONDUCTED COMPLEXES LEFT AXIS DEVIATION ANTEROSEPTAL INFARCT (CITED ON OR BEFORE 18-MAR-2018) ABNORMAL ECG WHEN COMPARED WITH ECG OF 02-JUL-2018 03:31, NO SIGNIFICANT CHANGE WAS FOUND Confirmed by SILVANA ENGEL MD ([id number]) on 07/05/2018 10:33:33 AM Referred By: Confirmed By:SILVANA ENGEL MD
--- NOTE | 2018-07-05 11:03 | PN ---
Progress Note, Physician Chief Complaint: patient seen and examined intubated BP is better on norepi and NS fluids 100cc urine output 3% NS given yesterday - Current Medication List Current Medications: Active Medications Acetaminophen (Ofirmev Injection -) 1,000 mg IVPB Q6H PRN PRN Reason: FEVER Ascorbic Acid (Vitamin C -) 500 mg PO BID [facility] Last Admin: 07/05/18 09:43 Dose: 500 mg Doxycycline Hyclate (Vibramycin -) 100 mg PO BID@1000,1800 [facility] Last Admin: 07/05/18 09:43 Dose: 100 mg Folic Acid (Folic Acid -) 1 mg PO DAILY [facility] Last Admin: 07/04/18 09:22 Dose: 1 mg IV Flush (Picc Line Flush) 8 ml IVPUSH PRN PRN PRN Reason: Protocol Sodium Chloride (Normal Saline -) 1,000 mls @ 80 mls/hr IV ASDIR [facility] Last Admin: 07/05/18 09:46 Dose: Not Given Propofol (Diprivan -) 1,000,000 mcg in 100 mls @ 1.902 mls/hr IVPB TITR [facility]; Protocol Last Admin: 07/04/18 09:27 Dose: 20 mcg/kg/min, 7.608 mls/hr Meropenem 1 gm/ Sodium (Chloride) 50 mls @ 200 mls/hr IVPB Q8H-IV [facility] Last Admin: 07/05/18 09:43 Dose: 200 mls/hr Norepinephrine Bitartrate 8, (000 mcg/ Sodium Chloride) 250 mls @ 9.37 mls/hr IV TITR [facility]; Protocol Last Titration: 07/04/18 19:00 Dose: 4 mcg/min, 7.5 mls/hr Daptomycin 420 mg/ Sodium (Chloride) 50 mls @ 50 mls/hr IVPB DAILY [facility]; Protocol Insulin Aspart (Novolog Vial Sliding Scale -) 1 vial SQ TIDAC [facility]; Protocol Last Admin: 07/05/18 06:37 Dose: Not Given Multi-Ingredient Ointment (Zinc Oxide) 1 applic TP BID [facility] Last Admin: 07/04/18 21:57 Dose: 1 applic Sodium Chloride (Sodium Chloride Tablet -) 1 gm PO BID [facility] Last Admin: 07/05/18 09:44 Dose: 1 gm Zinc Sulfate (Orazinc -) 220 mg PO DAILY [facility] Last Admin: 07/05/18 09:43 Dose: 220 mg - Objective Vital Signs: Vital Signs Temperature 98.4 F 07/05/18 06:00 Pulse Rate 82 07/05/18 08:00 Respiratory Rate 30 H 07/05/18 09:25 Blood Pressure 114/52 L 07/05/18 08:00 O2 Sat by Pulse Oximetry (%) 100 07/05/18 08:02 Constitutional: Yes: Calm Eyes: Yes: Other (pupils reactive to light) Cardiovascular: Yes: Regular Rate and Rhythm, S1, S2 Respiratory: Yes: Mechanically Ventilated Gastrointestinal: Yes: Normal Bowel Sounds, Soft, Other (g tubw) Genitourinary: Yes: [place] Present, Scrotal Edema Edema: Yes Edema: LUE: 3+, RUE: 3+, LLE: 3+, RLE: 3+ Labs: CBC, BMP 07/05/18 05:30 07/05/18 05:30 INR, PTT INR 1.79 (0.83-1.09) H 07/04/18 05:25 Fibrinogen 319.0 mg/dL (238-498) 07/04/18 05:25 Problem List - Problems (1) Sacral decubitus ulcer Assessment/Plan: Microbiology 06/12/18 17:22 Decubiti Gram Stain - Final 06/12/18 17:22 Decubiti Wound Culture - Final Mr S Aureus Vr Ec Faecalis Proteus Mirabilis on dapto.meropenem and doxycyline elevated WBC count no fever Code(s): L89.159 - PRESSURE ULCER OF SACRAL REGION, UNSPECIFIED STAGE (2) Anemia Assessment/Plan: refusing blood transfusion- jehovah witness Code(s): D64.9 - ANEMIA, UNSPECIFIED (3) Abnormal liver enzymes Assessment/Plan: abdominal MRI report- innumerable hepatic lesions,thoracic and lumbar lesion suscipicious for metastatic disease \ Code(s): R74.8 - ABNORMAL LEVELS OF OTHER SERUM ENZYMES (4) Bacteremia Assessment/Plan: Microbiology Microbiology 06/12/18 17:22 Decubiti Gram Stain - Final 06/12/18 17:22 Decubiti Wound Culture - Final Mr S Aureus Vr Ec Faecalis Proteus Mirabilis 06/12/18 17:22 Blood - Peripheral Venous Blood Culture - Final Escherichia Coli Esbl [employer] 06/12/18 17:10 Blood - Peripheral Venous Blood Culture - Final Escherichia Coli Esbl [employer] 06/12/18 09:20 Urine - Urine - Catheterized Urine Culture - Final Proteus Mirabilis on meropenem, daptomycin and doxycycline Code(s): R78.81 - BACTEREMIA (5) Hyponatremia Assessment/Plan: got NS 3% yesterday renal on board na from 121 to 126 Code(s): E87.1 - HYPO-OSMOLALITY AND HYPONATREMIA (6) Sepsis Assessment/Plan: icu on vent intubated on nor epi for hemodynamic support - will turn off BP much better Code(s): A41.9 - SEPSIS, UNSPECIFIED ORGANISM Qualifiers: Sepsis type: sepsis due to unspecified organism Qualified Code(s): A41.9 - Sepsis, unspecified organism (7) JORDAN (acute kidney injury) Assessment/Plan: bun/cr noted urine output low renal on board Code(s): N17.9 - ACUTE KIDNEY FAILURE, UNSPECIFIED
[2018-07-05] MEDS: DAPTOMYCIN 420 MG in SODIUM CHLORIDE 50 ML IVPB SCH (11:58)
[2018-07-05] MEDS ORDERED: ALBUMIN HUMAN 25% 100 ML VIAL IVPB SCH ×2 (12:00)
[2018-07-05] MEDS ORDERED: ALBUMIN HUMAN 25% 12.5 GM/50 ML VIAL IVPB SCH (12:00)
[2018-07-05] MEDS: ZINC OXIDE 20% TOPICAL OINTMENT 30 GM TUBE TP SCH (12:17)
--- NOTE | 2018-07-05 12:22 | PN ---
Teaching Attending Note Name of Resident: Vern Alston ATTENDING PHYSICIAN STATEMENT I saw and evaluated the patient. I reviewed the resident's note and discussed the case with the resident. I agree with the resident's findings and plan as documented. SUBJECTIVE: Pt seen and examined in the ICU. Remains intubated, poorly responsive off sedation. Vented on volume assist control. Oliguric. Remains on pressors. OBJECTIVE: Vital Signs Period Temp Pulse Resp BP Sys/Prado Pulse Ox Last 24 Hr 98.1 F-98.5 F 77-99 18-34 90-132/44-60 100-100 Intake & Output 07/02/18 07/03/18 07/04/18 07/05/18 23:59 23:59 23:59 23:59 Intake Total 187 1060 2845.0 725.5 Output Total 330 145 185 55 Balance -782 216 2147.0 670.5 Weight 64.637 kg 63.4 kg 71.809 kg 70.052 kg Gen: intubated, poorly responsive Heart: RRR Lung: scattered rhonchi Abd: soft, nontender Ext: + edema CBC, BMP 07/05/18 05:30 07/05/18 05:30 Active Medications Acetaminophen (Ofirmev Injection -) 1,000 mg IVPB Q6H PRN PRN Reason: FEVER Albumin Human (Albumin Human 25% -) 25 gm IVPB Q30M [facility] Stop: 07/05/18 13:31 Ascorbic Acid (Vitamin C -) 500 mg PO BID [facility] Last Admin: 07/05/18 09:43 Dose: 500 mg Doxycycline Hyclate (Vibramycin -) 100 mg PO BID@1000,1800 [facility] Last Admin: 07/05/18 09:43 Dose: 100 mg Folic Acid (Folic Acid -) 1 mg PO DAILY [facility] Last Admin: 07/04/18 09:22 Dose: 1 mg Furosemide (Lasix Injection -) 60 mg IVPUSH ONCE ONE Stop: 07/05/18 11:51 IV Flush (Picc Line Flush) 8 ml IVPUSH PRN PRN PRN Reason: Protocol Propofol (Diprivan -) 1,000,000 mcg in 100 mls @ 1.902 mls/hr IVPB TITR [facility]; Protocol Last Admin: 07/04/18 09:27 Dose: 20 mcg/kg/min, 7.608 mls/hr Meropenem 1 gm/ Sodium (Chloride) 50 mls @ 200 mls/hr IVPB Q8H-IV [facility] Last Admin: 07/05/18 09:43 Dose: 200 mls/hr Norepinephrine Bitartrate 8, (000 mcg/ Sodium Chloride) 250 mls @ 9.37 mls/hr IV TITR [facility]; Protocol Last Titration: 07/04/18 19:00 Dose: 4 mcg/min, 7.5 mls/hr Daptomycin 420 mg/ Sodium (Chloride) 50 mls @ 50 mls/hr IVPB DAILY [facility]; Protocol Last Admin: 07/05/18 11:58 Dose: Not Given Insulin Aspart (Novolog Vial Sliding Scale -) 1 vial SQ TIDAC [facility]; Protocol Last Admin: 07/05/18 11:59 Dose: Not Given Multi-Ingredient Ointment (Zinc Oxide) 1 applic TP BID [facility] Last Admin: 07/04/18 21:57 Dose: 1 applic Sodium Chloride (Sodium Chloride Tablet -) 1 gm PO BID [facility] Last Admin: 07/05/18 09:44 Dose: 1 gm Zinc Sulfate (Orazinc -) 220 mg PO DAILY [facility] Last Admin: 07/05/18 09:43 Dose: 220 mg ASSESSMENT AND PLAN: Acute Hypoxic Respiratory Failure Pneumonia likely Aspiration Sepsis Acute Kidney Injury Volume Overload Metabolic Acidosis Thrombocytopenia Suspect Metastatic Disease Hyponatremia CAD HTN DM Hyperlipidemia Dementia Moravian - continue antibiotics - continue lasix - monitor urine output, creatinine - titrate pressors to maintain MAP >65 - continue salt tabs - monitor lytes - minimize sedation to assess mental statuts - enteral feeds - DVT/GI prophylaxis - poor overall prognosis, continue discussions regarding goals of care - continue ICU monitoring critical care time spent in reviewing chart, evaluating patient and formulating plan 35 min
[2018-07-05] MEDS: SODIUM CHLORIDE IV SCH (12:35)
[2018-07-05] MEDS: NOREPINEPHRINE BITARTRATE IV SCH (12:35)
[2018-07-05 12:50] LABS: ANISOCYTOSIS 1+; MACROCYTOSIS 0; PLATELET ESTIMATE DECREASED
[2018-07-05] MEDS ORDERED: FUROSEMIDE 40 MG/4 ML INJECTABLE VIAL ONE (12:51)
[2018-07-05] MEDS: ALBUMIN HUMAN 25% 100 ML VIAL IVPB SCH ×2 (12:59→21:16)
[2018-07-05] MEDS ORDERED: FUROSEMIDE 40 MG/4 ML INJECTABLE VIAL IVPUSH ONE (13:00)
--- NOTE | 2018-07-05 13:25 | PN ---
Progress Note, Physician History of Present Illness: Pt seen and examined at bedside. He remains in the ICU. He remains intubated. Pt appears volume overloaded and has been oliguric. - Current Medication List Current Medications: Active Medications Acetaminophen (Ofirmev Injection -) 1,000 mg IVPB Q6H PRN PRN Reason: FEVER Albumin Human (Albumin Human 25% -) 25 gm IVPB BID JEF Stop: 07/05/18 22:01 Last Admin: 07/05/18 12:59 Dose: 25 gm Ascorbic Acid (Vitamin C -) 500 mg PO BID JEF Last Admin: 07/05/18 09:43 Dose: 500 mg Doxycycline Hyclate (Vibramycin -) 100 mg PO BID@1000,1800 JEF Last Admin: 07/05/18 09:43 Dose: 100 mg Folic Acid (Folic Acid -) 1 mg PO DAILY JEF Last Admin: 07/05/18 10:17 Dose: 1 mg Furosemide (Lasix Injection -) 60 mg IVPUSH BIDLASIX JEF Stop: 07/06/18 06:01 IV Flush (Picc Line Flush) 8 ml IVPUSH PRN PRN PRN Reason: Protocol Propofol (Diprivan -) 1,000,000 mcg in 100 mls @ 1.902 mls/hr IVPB TITR JEF; Protocol Last Admin: 07/04/18 09:27 Dose: 20 mcg/kg/min, 7.608 mls/hr Meropenem 1 gm/ Sodium (Chloride) 50 mls @ 200 mls/hr IVPB Q8H-IV JEF Last Admin: 07/05/18 09:43 Dose: 200 mls/hr Norepinephrine Bitartrate 8, (000 mcg/ Sodium Chloride) 250 mls @ 9.37 mls/hr IV TITR JEF; Protocol Last Admin: 07/05/18 12:35 Dose: Not Given Daptomycin 420 mg/ Sodium (Chloride) 50 mls @ 50 mls/hr IVPB DAILY [facility]; Protocol Last Admin: 07/05/18 11:58 Dose: Not Given Insulin Aspart (Novolog Vial Sliding Scale -) 1 vial SQ TIDAC [facility]; Protocol Last Admin: 07/05/18 11:59 Dose: Not Given Multi-Ingredient Ointment (Zinc Oxide) 1 applic TP BID [facility] Last Admin: 07/05/18 12:17 Dose: Not Given Sodium Chloride (Sodium Chloride Tablet -) 1 gm PO BID JEF Last Admin: 07/05/18 09:44 Dose: 1 gm Zinc Sulfate (Orazinc -) 220 mg PO DAILY JEF Last Admin: 07/05/18 09:43 Dose: 220 mg - Objective Vital Signs: Vital Signs Temperature 98.4 F 07/05/18 06:00 Pulse Rate 80 07/05/18 12:00 Respiratory Rate 26 H 07/05/18 12:00 Blood Pressure 115/44 L 07/05/18 12:00 O2 Sat by Pulse Oximetry (%) 100 07/05/18 08:02 Constitutional: Yes: Calm Eyes: Yes: Conjunctiva Clear Cardiovascular: Yes: S1, S2 Respiratory: Yes: Mechanically Ventilated Gastrointestinal: Yes: Soft Genitourinary: Yes: [place] Present, Oliguria Musculoskeletal: Yes: Muscle Weakness Edema: Yes Edema: LUE: 1+, RUE: 1+, LLE: 2+, RLE: 2+ Neurological: Yes: Lethargy Labs: CBC, BMP 07/05/18 05:30 07/05/18 05:30 INR, PTT INR 1.79 (0.83-1.09) H 07/04/18 05:25 Fibrinogen 319.0 mg/dL (238-498) 07/04/18 05:25 - ....Imaging Chest X-ray: Report Reviewed Problem List - Problems (1) JORDAN (acute kidney injury) Code(s): N17.9 - ACUTE KIDNEY FAILURE, UNSPECIFIED (2) Hyponatremia Code(s): E87.1 - HYPO-OSMOLALITY AND HYPONATREMIA Assessment/Plan Current Medications Generic Name Dose Route Start Last Admin Trade Name Denae PRN Reason Stop Dose Admin Acetaminophen 1,000 mg 07/02/18 04:52 Ofirmev Injection - IVPB Q6H PRN FEVER Albumin Human 25 gm 07/05/18 13:00 07/05/18 12:59 Albumin Human 25% - IVPB 07/05/18 22:01 25 gm BID JEF Administration Ascorbic Acid 500 mg 06/13/18 22:00 07/05/18 09:43 Vitamin C - PO 500 mg BID JEF Administration Doxycycline Hyclate 100 mg 06/18/18 18:00 07/05/18 09:43 Vibramycin - PO 100 mg BID@1000,1800 JEF Administration Folic Acid 1 mg 06/15/18 10:00 07/05/18 10:17 Folic Acid - PO 1 mg DAILY JEF Administration Furosemide 60 mg 07/05/18 14:00 Lasix Injection - IVPUSH 07/06/18 06:01 BIDLASIX JEF IV Flush 8 ml 06/21/18 09:17 Picc Line Flush IVPUSH PRN PRN Protocol Propofol 1,000,000 mcg in 100 mls @ 1.902 mls/hr 07/03/18 22:00 07/04/18 09: 27 Diprivan - IVPB 20 mcg/kg/min TITR JEF 7.608 mls/hr Administration Protocol 5 MCG/KG/MIN Meropenem 1 gm/ Sodium 50 mls @ 200 mls/hr 07/04/18 10:24 07/05/18 09:43 Chloride IVPB 200 mls/hr Q8H-IV JEF Administration Norepinephrine Bitartrate 8, 250 mls @ 9.37 mls/hr 07/04/18 11:08 07/05/18 12 :35 000 mcg/ Sodium Chloride IV Not Given TITR JEF Protocol 5 MCG/MIN Daptomycin 420 mg/ Sodium 50 mls @ 50 mls/hr 07/04/18 18:08 07/05/18 11:58 Chloride IVPB Not Given DAILY [facility] Protocol Insulin Aspart 1 vial 07/03/18 07:00 07/05/18 11:59 Novolog Vial Sliding Scale - SQ Not Given TIDAC [facility] Protocol Multi-Ingredient Ointment 1 applic 06/13/18 22:00 07/05/18 12:17 Zinc Oxide TP Not Given BID JEF Sodium Chloride 1 gm 07/02/18 16:50 07/05/18 09:44 Sodium Chloride Tablet - PO 1 gm BID JEF Administration Zinc Sulfate 220 mg 06/21/18 10:00 07/05/18 09:43 Orazinc - PO 220 mg DAILY JEF Administration Impression 1. hyponatremia 2. JORDAN 3. resp failure s/p intubation 4. possible liver mets 5. s/p peg 6. s/p sepsis 7. CAD 8. HTN 9. hyperlipidemia 10. parkinsons 11. DM 12. anemia Plan - cont with pressors - monitor urine output - can give a trial of lasix and albumin - discussed HD with HCP at length today and she wants to thing about it - cont to monitor sodium - can restart feeds - cont salt tabs - d/c fluids and use ns for all drips if possible - discussed with ICU team - vent support - repeat labs in am Dr Coe
[2018-07-05] MEDS: FUROSEMIDE 40 MG/4 ML INJECTABLE VIAL IVPUSH SCH (14:50)
--- NOTE | 2018-07-05 14:55 | PN ---
Physical Exam: SUBJECTIVE: Patient seen and examined at bedside. Intubated, off sedation. OBJECTIVE: Vital Signs Period Temp Pulse Resp BP Sys/[place] Pulse Ox Last 24 Hr 98.1 F-98.4 F 77-99 18-34 90-134/44-65 100-100 GENERAL: off sedation, opens eyes to vigorous sternal rub HEAD: NC/AT EYES: pupils dilated but responsive ARS, NOSE, THROAT: Moist mucous membranes. NECK: supple without JVD LUNGS: diffusely coarse breath sounds HEART: tachycardic no m/r/g ABDOMEN: absent bowel sounds, soft, PEG in place MUSCULOSKELETAL: No bony deformities EXTREMITIES: 1+ pulses, warm, well-perfused. weeping edema throughout. NEUROLOGICAL: GCS 4 (eyes open to pain, intubated, negligible motor response to pain), corneal reflex not assessed but noted to be absent in ICU intake evaluation SKIN: Warm, dry Laboratory Results - last 24 hr 07/04/18 07/04/18 07/04/18 11:27 16:00 17:45 WBC RBC Hgb Hct MCV MCH MCHC RDW Plt Count MPV Absolute Neuts (auto) Neutrophils % Neutrophils % (Manual) Band Neutrophils % Lymphocytes % Lymphocytes % (Manual) Monocytes % Monocytes % (Manual) Eosinophils % Eosinophils % (Manual) Basophils % Basophils % (Manual) Myelocytes % (Man) Promyelocytes % (Man) Blast Cells % (Manual) Nucleated RBC % Metamyelocytes Hypochromia Platelet Estimate Polychromasia Poikilocytosis Anisocytosis Microcytosis Macrocytosis Judy Cells Fragmented RBCs Schistocytes Sodium 121 L Potassium 4.2 Chloride 98 Carbon Dioxide 12 L Anion Gap 11 BUN 106 H* Creatinine 1.7 H Creat Clearance w eGFR 39.60 POC Glucometer 122.32875 113.31529 Random Glucose 76 Calcium 7.4 L Phosphorus Magnesium Total Bilirubin Direct Bilirubin AST ALT Alkaline Phosphatase Creatine Kinase Creatine Kinase Index CK-MB (CK-2) Total Protein Albumin 07/04/18 07/04/18 07/04/18 17:45 19:30 22:40 WBC 13.6 H RBC 2.67 L Hgb 7.1 L Hct 22.4 L MCV 83.6 MCH 26.5 MCHC 31.7 L RDW 23.9 H Plt Count 92 L MPV 8.8 Absolute Neuts (auto) 11.7 H Neutrophils % 86.1 H Neutrophils % (Manual) 85.0 H Band Neutrophils % 3.0 Lymphocytes % 8.5 Lymphocytes % (Manual) 8.0 D Monocytes % 3.9 Monocytes % (Manual) 4 D Eosinophils % 1.3 D Eosinophils % (Manual) Basophils % 0.2 Basophils % (Manual) Myelocytes % (Man) Promyelocytes % (Man) Blast Cells % (Manual) Nucleated RBC % 0 Metamyelocytes Hypochromia 2+ Platelet Estimate Decreased Polychromasia 1+ Poikilocytosis Anisocytosis 3+ Microcytosis 2+ Macrocytosis 1+ [place] Cells Fragmented RBCs Schistocytes 2+ Sodium 127 L Potassium 3.9 Chloride 98 Carbon Dioxide 14 L Anion Gap 15 BUN 103 H Creatinine 1.8 H Creat Clearance w eGFR 37.07 POC Glucometer Random Glucose 70 L Calcium 7.1 L Phosphorus 4.2 Magnesium 1.8 Total Bilirubin Direct Bilirubin AST ALT Alkaline Phosphatase Creatine Kinase Creatine Kinase Index CK-MB (CK-2) Total Protein Albumin 07/04/18 07/05/18 07/05/18 23:50 00:25 05:30 WBC RBC Hgb Hct MCV MCH MCHC RDW Plt Count MPV Absolute Neuts (auto) Neutrophils % Neutrophils % (Manual) Band Neutrophils % Lymphocytes % Lymphocytes % (Manual) Monocytes % Monocytes % (Manual) Eosinophils % Eosinophils % (Manual) Basophils % Basophils % (Manual) Myelocytes % (Man) Promyelocytes % (Man) Blast Cells % (Manual) Nucleated RBC % Metamyelocytes Hypochromia Platelet Estimate Polychromasia Poikilocytosis Anisocytosis Microcytosis Macrocytosis Judy Cells Fragmented RBCs Schistocytes Sodium 127 L 126 L Potassium 3.9 4.0 Chloride 98 98 Carbon Dioxide 14 L 14 L Anion Gap 15 14 BUN 106 H* 104 H Creatinine 1.8 H 1.8 H Creat Clearance w eGFR 37.07 37.07 POC Glucometer 94.89525 Random Glucose 67 L 58 L Calcium 7.0 L 7.0 L Phosphorus 4.6 Magnesium 1.9 Total Bilirubin 3.9 H Direct Bilirubin 3.3 H AST 107 H ALT 18 Alkaline Phosphatase 508 H Creatine Kinase 470 H Creatine Kinase Index 0.3 CK-MB (CK-2) 1.7 Total Protein 5.6 L Albumin 1.2 L 07/05/18 07/05/18 05:30 10:23 WBC 16.5 H RBC 2.72 L Hgb 7.0 L Hct 23.1 L MCV 84.8 MCH 25.9 MCHC 30.5 L RDW 24.1 H Plt Count 89 L MPV 8.7 Absolute Neuts (auto) 14.4 H Neutrophils % 87.3 H Neutrophils % (Manual) 84.5 H Band Neutrophils % 10.3 Lymphocytes % 8.3 Lymphocytes % (Manual) 2.1 L D Monocytes % 3.3 L Monocytes % (Manual) 1 L Eosinophils % 0.9 Eosinophils % (Manual) 0.0 Basophils % 0.2 Basophils % (Manual) 0.0 Myelocytes % (Man) 0 D Promyelocytes % (Man) 0 Blast Cells % (Manual) 0 Nucleated RBC % 0 Metamyelocytes 2 D Hypochromia 0 Platelet Estimate Decreased Polychromasia 1+ Poikilocytosis 1+ Anisocytosis 1+ Microcytosis 1+ Macrocytosis 0 [place] Cells 1+ Fragmented RBCs 1+ Schistocytes 1+ Sodium Potassium Chloride Carbon Dioxide Anion Gap BUN Creatinine Creat Clearance w eGFR POC Glucometer 145.28152 Random Glucose Calcium Phosphorus Magnesium Total Bilirubin Direct Bilirubin AST ALT Alkaline Phosphatase Creatine Kinase Creatine Kinase Index CK-MB (CK-2) Total Protein Albumin Active Medications Generic Name Dose Route Start Last Admin Trade Name Freq PRN Reason Stop Dose Admin Acetaminophen 1,000 mg 07/02/18 04:52 Ofirmev Injection - IVPB Q6H PRN FEVER Albumin Human 25 gm 07/05/18 13:00 07/05/18 12:59 Albumin Human 25% - IVPB 07/05/18 22:01 25 gm BID JEF Administration Ascorbic Acid 500 mg 06/13/18 22:00 07/05/18 09:43 Vitamin C - PO 500 mg BID JEF Administration Doxycycline Hyclate 100 mg 06/18/18 18:00 07/05/18 09:43 Vibramycin - PO 100 mg BID@1000,1800 JEF Administration Folic Acid 1 mg 06/15/18 10:00 07/05/18 10:17 Folic Acid - PO 1 mg DAILY JEF Administration Furosemide 60 mg 07/05/18 14:00 Lasix Injection - IVPUSH 07/06/18 06:01 BIDLASIX JEF IV Flush 8 ml 06/21/18 09:17 Picc Line Flush IVPUSH PRN PRN Protocol Propofol 1,000,000 mcg in 100 mls @ 1.902 mls/hr 07/03/18 22:00 07/04/18 09: 27 Diprivan - IVPB 20 mcg/kg/min TITR JEF 7.608 mls/hr Administration Protocol 5 MCG/KG/MIN Meropenem 1 gm/ Sodium 50 mls @ 200 mls/hr 07/04/18 10:24 07/05/18 09:43 Chloride IVPB 200 mls/hr Q8H-IV JEF Administration Norepinephrine Bitartrate 8, 250 mls @ 9.37 mls/hr 07/04/18 11:08 07/05/18 12 :35 000 mcg/ Sodium Chloride IV Not Given TITR JEF Protocol 5 MCG/MIN Daptomycin 420 mg/ Sodium 50 mls @ 50 mls/hr 07/04/18 18:08 07/05/18 11:58 Chloride IVPB Not Given DAILY [facility] Protocol Insulin Aspart 1 vial 07/03/18 07:00 07/05/18 11:59 Novolog Vial Sliding Scale - SQ Not Given TIDAC [facility] Protocol Multi-Ingredient Ointment 1 applic 06/13/18 22:00 07/05/18 12:17 Zinc Oxide TP Not Given BID JEF Sodium Chloride 1 gm 07/02/18 16:50 07/05/18 09:44 Sodium Chloride Tablet - PO 1 gm BID JEF Administration Zinc Sulfate 220 mg 06/21/18 10:00 07/05/18 09:43 Orazinc - PO 220 mg DAILY JEF Administration ASSESSMENT/PLAN: 72 y/o M w/ PMH PD, CVA, HTN, HLD, IDDM, osteomyelitis, anemia, COPD, CAD, 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 #neurologic -likely anoxic brain injury -GCS 4 -continue life support measures #pulmonary -aspiration noted during intubation -titrate vent for O2 sat > 90% -improved on re-repeat ABG, pH 7.28 #cardiac -septic shock, titrate levophed to maintain MAP > 65 -avoid AV chris blocking agents -new onset Afib did not respond to digoxin x 2, did break with amiodarone bolus #ID -sepsis 2/2 UTI and chronic ulcer infection, now in septic shock on pressors -IV doxycycline and meropenem given, ID further recommended daptomycin as patient has VRE-infected ulcer, however HCP refused #renal -IVF held as patient is volume overloaded -Albumin + lasix x 2 doses -possible HD tomorrow per nephro recs -nepro feeds started -Na fell to 121 overnight, given 100ccs 3% saline -AM Na 126, AM BUN/Cr 104/1.8 #GI -liver studies showing mixed hepatocellular/cholestatic disease -ammonia wnl, neurologic issues therefore likely 2/2 anoxic injury -nepro feeds -trend CMP, coags #heme-onc -chronic anemia -procrit as per heme -PO vitamin K -thrombocytopenic, no indication for transfusion at present -declines blood products d/t rastafarian views -widely metastatic disease, Ca 19-9 14k therefore likely pancreatic Ca, prognosis grave -GOC initiated with HCP -HCP continues to insist on aggressive measures in spite of prognosis -HCP opposes blood products but agrees to albumin (a blood product) #FEN -no IVF -trend CMP -nepro feeds #PPx -DVT: SCDs -GI: not indicated #dispo -monitor in ICU -full code Visit type - Emergency Visit Emergency Visit: No - New Patient This patient is new to me today: No - Critical Care Critical Care patient: Yes Total Critical Care Time (in minutes): 40 Critical Care Statement: The care of this patient involved high complexity decision making to prevent further life threatening deterioration of the patient 's condition and/or to evaluate & treat vital organ system(s) failure or risk of failure.
--- NOTE | 2018-07-05 16:02 | PN ---
Progress Note, Physician History of Present Illness: continues to be intubated no fevers - Current Medication List Current Medications: Active Medications Acetaminophen (Ofirmev Injection -) 1,000 mg IVPB Q6H PRN PRN Reason: FEVER Albumin Human (Albumin Human 25% -) 25 gm IVPB BID JEF Stop: 07/05/18 22:01 Last Admin: 07/05/18 12:59 Dose: 25 gm Ascorbic Acid (Vitamin C -) 500 mg PO BID JEF Last Admin: 07/05/18 09:43 Dose: 500 mg Doxycycline Hyclate (Vibramycin -) 100 mg PO BID@1000,1800 JEF Last Admin: 07/05/18 09:43 Dose: 100 mg Folic Acid (Folic Acid -) 1 mg PO DAILY JEF Last Admin: 07/05/18 10:17 Dose: 1 mg Furosemide (Lasix Injection -) 60 mg IVPUSH BIDLASIX [facility] Stop: 07/06/18 06:01 Last Admin: 07/05/18 14:50 Dose: 60 mg IV Flush (Picc Line Flush) 8 ml IVPUSH PRN PRN PRN Reason: Protocol Propofol (Diprivan -) 1,000,000 mcg in 100 mls @ 1.902 mls/hr IVPB TITR [facility]; Protocol Last Admin: 07/04/18 09:27 Dose: 20 mcg/kg/min, 7.608 mls/hr Norepinephrine Bitartrate 8, (000 mcg/ Sodium Chloride) 250 mls @ 9.37 mls/hr IV TITR JEF; Protocol Last Admin: 07/05/18 12:35 Dose: Not Given Daptomycin 420 mg/ Sodium (Chloride) 50 mls @ 50 mls/hr IVPB DAILY [facility]; Protocol Last Admin: 07/05/18 11:58 Dose: Not Given Insulin Aspart (Novolog Vial Sliding Scale -) 1 vial SQ TIDAC [facility]; Protocol Last Admin: 07/05/18 11:59 Dose: Not Given Multi-Ingredient Ointment (Zinc Oxide) 1 applic TP BID [facility] Last Admin: 07/05/18 12:17 Dose: Not Given Sodium Chloride (Sodium Chloride Tablet -) 1 gm PO BID [facility] Last Admin: 07/05/18 09:44 Dose: 1 gm Zinc Sulfate (Orazinc -) 220 mg PO DAILY [facility] Last Admin: 07/05/18 09:43 Dose: 220 mg - Objective Vital Signs: Vital Signs Temperature 98.4 F 07/05/18 06:00 Pulse Rate 82 07/05/18 15:00 Respiratory Rate 25 H 07/05/18 15:00 Blood Pressure 132/50 L 07/05/18 15:00 O2 Sat by Pulse Oximetry (%) 100 07/05/18 08:02 Constitutional: Yes: Other Cardiovascular: Yes: Regular Rate and Rhythm Respiratory: Yes: Intubated, Mechanically Ventilated, Other (still with secretions) Gastrointestinal: Yes: Normal Bowel Sounds, Soft, Other (peg tube in place) Genitourinary: Yes: [place] Present Labs: CBC, BMP 07/05/18 05:30 07/05/18 05:30 INR, PTT INR 1.79 (0.83-1.09) H 07/04/18 05:25 Fibrinogen 319.0 mg/dL (238-498) 07/04/18 05:25 Assessment/Plan patient with multiple medical problems coming in with sepsis uti and bacteremia with elevated liver enzymes and fever nimisha gm negative bacteremia wound infection dm sepsis uti 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 (3) Abnormal liver enzymes Code(s): R74.8 - ABNORMAL LEVELS OF OTHER SERUM ENZYMES (4) Sacral decubitus ulcer, stage IV Code(s): L89.154 - PRESSURE ULCER OF SACRAL REGION, STAGE 4 (5) Sepsis Code(s): A41.9 - SEPSIS, UNSPECIFIED ORGANISM Qualifiers: Sepsis type: sepsis due to unspecified organism Qualified Code(s): A41.9 - Sepsis, unspecified organism (6) Anemia Code(s): D64.9 - ANEMIA, UNSPECIFIED (7) Bacteremia Code(s): R78.81 - BACTEREMIA (8) Fever Code(s): R50.9 - FEVER, UNSPECIFIED Qualifiers: Fever type: unspecified Qualified Code(s): R50.9 - Fever, unspecified (9) Basilic vein thrombosis Code(s): I82.619 - ACUTE EMBOLISM AND THROMBOSIS OF SUPERFIC VN UNSP UP EXTREM plan continue doxy will stop meropenam suctioning rest as per icu nutrition patients prognosis is guarded cc 40 min patients wbc has increased will continue to monitor wbc if wbc keeps increasing then will start cubicin
--- NOTE | 2018-07-05 21:26 | PN ---
Progress Note (short form) - Note Progress Note: Patient seen and exmined with Dr. Linder agree with his assessment plan presumed widely metastatic pancreatic cancer poor prognosis overall procrit on going discussions on goals of care
[2018-07-06] MEDS: ZINC OXIDE 20% TOPICAL OINTMENT 30 GM TUBE TP SCH ×3 (04:40→21:30)
[2018-07-06] MEDS ORDERED: NOREPINEPHRINE BITARTRATE 4 MG/4 ML ML IV ONE (04:51)
[2018-07-06] MEDS: FUROSEMIDE 40 MG/4 ML INJECTABLE VIAL IVPUSH SCH (06:01)
[2018-07-06 06:10] LABS: BASO % 0.2 % (0-2.0); EOS % 2.1 % (0-4.5); LYMPH % 10.2 % (8-40); MCH 26.4 pg (25.7-33.7); MCHC 31.1 g/dl (32.0-35.9); MEAN CELL VOLUME 84.9 fl (80-96); MEAN PLT VOLUME 8.6 fl (7.5-11.1); MONO % 3.4 % (3.8-10.2); NEUT % 84.1 % (42.8-82.8); PLATELET COUNT 79 K/MM3 (134-434); RBC 2.47 M/mm3 (4.00-5.60); RDW 23.6 % (11.9-15.9); WHITE BLOOD COUNT 12.1 K/mm3 (4.0-10.0)
[2018-07-06 06:20] LABS: HEMOGLOBIN 6.5 GM/dL (11.7-16.9)
[2018-07-06 06:24] LABS: INR 1.65 (0.83-1.09); PROTHROMBIN TIME (PATIENT) 19.6 SEC (9.7-13.0)
[2018-07-06 06:26] LABS: ACTIVATED PTT 49.1 SECONDS (25.2-36.5)
[2018-07-06] MEDS: INSULIN SLIDING SCALE (NOVOLOG) 1 VIAL SQ SCH ×3 (06:27→16:26)
[2018-07-06 06:39] LABS: ALBUMIN 1.5 g/dl (3.4-5.0); ALK PHOS 565 U/L (45-117); ANION GAP 12 MMOL/L (8-16); BILIRUBIN,DIRECT 3.9 mg/dL (0.0-0.2); BILIRUBIN,TOTAL 4.5 mg/dL (0.2-1); BLOOD UREA NITROGEN 102 mg/dL (7-18); CALCIUM 7.2 mg/dL (8.5-10.1); CHLORIDE 102 mmol/L (98-107); CO2 13 mmol/L (21-32); GLUCOSE,RANDOM 58 mg/dL (74-106); MAGNESIUM 1.8 mg/dL (1.8-2.4); PHOSPHOROUS 4.4 mg/dL (2.5-4.9); POTASSIUM 3.7 mmol/L (3.5-5.1); SGOT/AST 92 U/L (15-37); SGPT/ALT 15 U/L (13-61); SODIUM 126 mmol/L (136-145); TOT PROT 5.3 g/dl (6.4-8.2)
[2018-07-06] MEDS ORDERED: EPOETIN ALFA 20,000 UNIT/1 ML VIAL SQ ONE (07:38)
[2018-07-06] MEDS ORDERED: DEXTROSE 50%-WATER - 25 GM/50 ML VIAL IVPUSH ONE (07:41)
[2018-07-06] MEDS ORDERED: POTASSIUM CHLORIDE TABS 20 MEQ TABLET.ER (FP) PO ONE (07:41)
[2018-07-06] MEDS ORDERED: DEXTROSE 50%-WATER 25 GM/50 ML DISP.SYRIN ONE (08:33)
[2018-07-06] MEDS ORDERED: PHYTONADIONE 5 MG TABLET PO ONE (09:58)
--- NOTE | 2018-07-06 10:37 | PN ---
Progress Note, Physician History of Present Illness: Pt seen and examined at bedside. He remains in the ICU. Pt remains intubated. He did not respond much to the lasix and albumin trial yesterday. He remains oliguric. - Current Medication List Current Medications: Active Medications Acetaminophen (Ofirmev Injection -) 1,000 mg IVPB Q6H PRN PRN Reason: FEVER Ascorbic Acid (Vitamin C -) 500 mg PO BID [facility] Last Admin: 07/05/18 21:18 Dose: 500 mg Doxycycline Hyclate (Vibramycin -) 100 mg PO BID@1000,1800 JEF Last Admin: 07/05/18 17:49 Dose: 100 mg Folic Acid (Folic Acid -) 1 mg PO DAILY [facility] Last Admin: 07/05/18 10:17 Dose: 1 mg IV Flush (Picc Line Flush) 8 ml IVPUSH PRN PRN PRN Reason: Protocol Propofol (Diprivan -) 1,000,000 mcg in 100 mls @ 1.902 mls/hr IVPB TITR [facility]; Protocol Last Admin: 07/04/18 09:27 Dose: 20 mcg/kg/min, 7.608 mls/hr Norepinephrine Bitartrate 8, (000 mcg/ Sodium Chloride) 250 mls @ 9.37 mls/hr IV TITR [facility]; Protocol Last Titration: 07/06/18 04:00 Dose: 2 mcg/min, 3.75 mls/hr Daptomycin 420 mg/ Sodium (Chloride) 50 mls @ 50 mls/hr IVPB DAILY [facility]; Protocol Last Admin: 07/05/18 11:58 Dose: Not Given Insulin Aspart (Novolog Vial Sliding Scale -) 1 vial SQ TIDAC [facility]; Protocol Last Admin: 07/06/18 06:27 Dose: Not Given Multi-Ingredient Ointment (Zinc Oxide) 1 applic TP BID [facility] Last Admin: 07/06/18 04:40 Dose: Not Given Ranitidine HCl (Zantac -) 150 mg PO BID [facility] Sodium Chloride (Sodium Chloride Tablet -) 1 gm PO BID [facility] Last Admin: 07/05/18 21:24 Dose: 1 gm Zinc Sulfate (Orazinc -) 220 mg PO DAILY [facility] Last Admin: 07/05/18 09:43 Dose: 220 mg - Objective Vital Signs: Vital Signs Temperature 97.4 F L 07/06/18 10:00 Pulse Rate 83 07/06/18 10:00 Respiratory Rate 26 H 07/06/18 10:00 Blood Pressure 111/56 L 07/06/18 10:00 O2 Sat by Pulse Oximetry (%) 100 07/05/18 21:01 Constitutional: Yes: Calm Eyes: Yes: Conjunctiva Clear Cardiovascular: Yes: S1, S2 Respiratory: Yes: Mechanically Ventilated Gastrointestinal: Yes: Soft Genitourinary: Yes: [place] Present, Oliguria, Scrotal Edema Musculoskeletal: Yes: Muscle Weakness Edema: Yes Edema: LUE: 3+, RUE: 3+, LLE: 2+, RLE: 2+ Neurological: Yes: Lethargy Labs: CBC, BMP 07/06/18 05:30 07/06/18 05:30 INR, PTT INR 1.65 (0.83-1.09) H 07/06/18 05:30 Fibrinogen 319.0 mg/dL (238-498) 07/04/18 05:25 Problem List - Problems (1) JORDAN (acute kidney injury) Code(s): N17.9 - ACUTE KIDNEY FAILURE, UNSPECIFIED (2) Hyponatremia Code(s): E87.1 - HYPO-OSMOLALITY AND HYPONATREMIA Assessment/Plan Current Medications Generic Name Dose Route Start Last Admin Trade Name Freq PRN Reason Stop Dose Admin Acetaminophen 1,000 mg 07/02/18 04:52 Ofirmev Injection - IVPB Q6H PRN FEVER Ascorbic Acid 500 mg 06/13/18 22:00 07/05/18 21:18 Vitamin C - PO 500 mg BID JEF Administration Doxycycline Hyclate 100 mg 06/18/18 18:00 07/05/18 17:49 Vibramycin - PO 100 mg BID@1000,1800 JEF Administration Folic Acid 1 mg 06/15/18 10:00 07/05/18 10:17 Folic Acid - PO 1 mg DAILY JEF Administration IV Flush 8 ml 06/21/18 09:17 Picc Line Flush IVPUSH PRN PRN Protocol Propofol 1,000,000 mcg in 100 mls @ 1.902 mls/hr 07/03/18 22:00 07/04/18 09: 27 Diprivan - IVPB 20 mcg/kg/min TITR JEF 7.608 mls/hr Administration Protocol 5 MCG/KG/MIN Norepinephrine Bitartrate 8, 250 mls @ 9.37 mls/hr 07/04/18 11:08 07/06/18 04 :00 000 mcg/ Sodium Chloride IV 2 mcg/min TITR JEF 3.75 mls/hr Titration Protocol 5 MCG/MIN Daptomycin 420 mg/ Sodium 50 mls @ 50 mls/hr 07/04/18 18:08 07/05/18 11:58 Chloride IVPB Not Given DAILY [facility] Protocol Insulin Aspart 1 vial 07/03/18 07:00 07/06/18 06:27 Novolog Vial Sliding Scale - SQ Not Given TIDAC [facility] Protocol Multi-Ingredient Ointment 1 applic 06/13/18 22:00 07/06/18 04:40 Zinc Oxide TP Not Given BID JEF Ranitidine HCl 150 mg 07/06/18 10:00 Zantac - PO BID JEF Sodium Chloride 1 gm 07/02/18 16:50 07/05/18 21:24 Sodium Chloride Tablet - PO 1 gm BID JEF Administration Zinc Sulfate 220 mg 06/21/18 10:00 07/05/18 09:43 Orazinc - PO 220 mg DAILY JEF Administration Impression 1. hyponatremia 2. JORDAN 3. resp failure s/p intubation 4. possible liver mets 5. s/p peg 6. s/p sepsis 7. CAD 8. HTN 9. hyperlipidemia 10. parkinsons 11. DM 12. anemia Plan - spoke to HCP Nicole Razo at length today, we discussed possible options for renal failure. Pt has been oliguric and he is overloaded. Nicole does want HD therapy. ICU will place HD catheter and will dialyze pt today. - HD today in ICU at bedside - monitor sodium - will UF volume as tolerated - overall prognosis is poor, this has been explained to Nicole - pt failed lasix trial - will order serologies - follow cxr - vent support - discussed with ICU team Dr Coe
[2018-07-06] MEDS: FOLIC ACID 1 MG TABLET (FP) PO SCH (10:49)
[2018-07-06] MEDS: ZINC SULFATE 220 MG CAPSULE (FP) PO SCH (10:49)
[2018-07-06] MEDS: RANITIDINE HCL 150 MG TABLET (FP) PO SCH ×2 (10:49→21:29)
[2018-07-06] MEDS: ASCORBIC ACID 500 MG TABLET (FP) PO SCH ×2 (10:49→21:30)
[2018-07-06] MEDS: DOXYCYCLINE HYCLATE 100 MG CAPSULE PO SCH ×2 (10:51→18:15)
[2018-07-06] MEDS: SODIUM CHLORIDE 1 GM TABLET PO SCH ×2 (10:51→21:29)
--- NOTE | 2018-07-06 11:03 | PN ---
Progress Note, Physician Chief Complaint: in icu intubated on dopamine got lasix and albumin yesterday made 200cc urine - Current Medication List Current Medications: Active Medications Acetaminophen (Ofirmev Injection -) 1,000 mg IVPB Q6H PRN PRN Reason: FEVER Albumin Human (Albumin Human 25%) 12.5 gm IVPB Q30M [facility] Stop: 07/06/18 12:16 Ascorbic Acid (Vitamin C -) 500 mg PO BID [facility] Last Admin: 07/05/18 21:18 Dose: 500 mg Doxycycline Hyclate (Vibramycin -) 100 mg PO BID@1000,1800 [facility] Last Admin: 07/05/18 17:49 Dose: 100 mg Folic Acid (Folic Acid -) 1 mg PO DAILY [facility] Last Admin: 07/05/18 10:17 Dose: 1 mg IV Flush (Picc Line Flush) 8 ml IVPUSH PRN PRN PRN Reason: Protocol Propofol (Diprivan -) 1,000,000 mcg in 100 mls @ 1.902 mls/hr IVPB TITR [facility]; Protocol Last Admin: 07/04/18 09:27 Dose: 20 mcg/kg/min, 7.608 mls/hr Norepinephrine Bitartrate 8, (000 mcg/ Sodium Chloride) 250 mls @ 9.37 mls/hr IV TITR [facility]; Protocol Last Titration: 07/06/18 04:00 Dose: 2 mcg/min, 3.75 mls/hr Daptomycin 420 mg/ Sodium (Chloride) 50 mls @ 50 mls/hr IVPB DAILY [facility]; Protocol Last Admin: 07/05/18 11:58 Dose: Not Given Sodium Chloride (Normal Saline -) 250 mls @ 3,000 mls/hr IV PRN PRN PRN Reason: Hypotension during Dialysis Stop: 07/07/18 10:38 Insulin Aspart (Novolog Vial Sliding Scale -) 1 vial SQ TIDAC [facility]; Protocol Last Admin: 07/06/18 06:27 Dose: Not Given Multi-Ingredient Ointment (Zinc Oxide) 1 applic TP BID [facility] Last Admin: 07/06/18 04:40 Dose: Not Given Ranitidine HCl (Zantac -) 150 mg PO BID [facility] Sodium Chloride (Sodium Chloride Tablet -) 1 gm PO BID [facility] Last Admin: 07/05/18 21:24 Dose: 1 gm Zinc Sulfate (Orazinc -) 220 mg PO DAILY [facility] Last Admin: 07/05/18 09:43 Dose: 220 mg - Objective Vital Signs: Vital Signs Temperature 97.4 F L 07/06/18 10:00 Pulse Rate 83 07/06/18 10:00 Respiratory Rate 26 H 07/06/18 10:00 Blood Pressure 111/56 L 07/06/18 10:00 O2 Sat by Pulse Oximetry (%) 100 07/05/18 21:01 Constitutional: Yes: Calm, Pallor Cardiovascular: Yes: Regular Rate and Rhythm, S1, S2 Respiratory: Yes: Mechanically Ventilated Gastrointestinal: Yes: Normal Bowel Sounds, Soft Genitourinary: Yes: [place] Present, Scrotal Edema Edema: Yes Edema: LUE: 3+, RUE: 3+, LLE: 3+, RLE: 3+ Labs: CBC, BMP 07/06/18 05:30 07/06/18 05:30 INR, PTT INR 1.65 (0.83-1.09) H 07/06/18 05:30 Fibrinogen 319.0 mg/dL (238-498) 07/04/18 05:25 Problem List - Problems (1) JORDAN (acute kidney injury) Assessment/Plan: trial of lasix albumin yesterday oliguric plan for HD cath placement today and HD- wants HD Code(s): N17.9 - ACUTE KIDNEY FAILURE, UNSPECIFIED (2) Sacral decubitus ulcer Assessment/Plan: Microbiology 06/12/18 17:22 Decubiti Gram Stain - Final 06/12/18 17:22 Decubiti Wound Culture - Final S Aureus Vr Ec Faecalis Proteus Mirabilis on dapto and doxycyline meropenem stopped elevated WBC count trending down today from 16 to 12 Code(s): L89.159 - PRESSURE ULCER OF SACRAL REGION, UNSPECIFIED STAGE (3) Anemia Assessment/Plan: refusing blood transfusion- jehovah witness drop to 6.5 today procrit given Code(s): D64.9 - ANEMIA, UNSPECIFIED (4) Abnormal liver enzymes Assessment/Plan: abdominal MRI report- innumerable hepatic lesions,thoracic and lumbar lesion suscipicious for metastatic disease \ Code(s): R74.8 - ABNORMAL LEVELS OF OTHER SERUM ENZYMES (5) Bacteremia Assessment/Plan: Microbiology Microbiology 06/12/18 17:22 Decubiti Gram Stain - Final 06/12/18 17:22 Decubiti Wound Culture - Final Mr S Aureus Vr Ec Faecalis Proteus Mirabilis 06/12/18 17:22 Blood - Peripheral Venous Blood Culture - Final Escherichia Coli Esbl Web Producer 06/12/18 17:10 Blood - Peripheral Venous Blood Culture - Final Escherichia Coli Esbl Web Producer 06/12/18 09:20 Urine - Urine - Catheterized Urine Culture - Final Proteus Mirabilis on , daptomycin and doxycycline- gram negative bacteremia Code(s): R78.81 - BACTEREMIA (6) Hyponatremia Assessment/Plan: salt tablets renal on board na from 121 to 126 Code(s): E87.1 - HYPO-OSMOLALITY AND HYPONATREMIA (7) Sepsis Assessment/Plan: icu on vent intubated on norepi for hemodynamic support - Code(s): A41.9 - SEPSIS, UNSPECIFIED ORGANISM Qualifiers: Sepsis type: sepsis due to unspecified organism Qualified Code(s): A41.9 - Sepsis, unspecified organism
[2018-07-06] MEDS ORDERED: INSULIN REGULAR HUMAN 100 UNITS/ML *VIAL ONE (11:21)
--- NOTE | 2018-07-06 12:14 | PN ---
Teaching Attending Note Name of Resident: Vern Alston ATTENDING PHYSICIAN STATEMENT I saw and evaluated the patient. I reviewed the resident's note and discussed the case with the resident. I agree with the resident's findings and plan as documented. SUBJECTIVE: Pt seen and examined in the ICU. Remains intubated, poorly responsive off sedation. Poor urine output despite lasix/albumin. Remains on low dose levophed gtt. OBJECTIVE: Vital Signs Period Temp Pulse Resp BP Sys/Prado Pulse Ox Last 24 Hr 97.4 F-99.6 F 75-88 12-30 102-132/42-69 100-100 Intake & Output 07/03/18 07/04/18 07/05/18 07/06/18 23:59 23:59 23:59 23:59 Intake Total 1060 2845.0 2148.0 625.6 Output Total 145 185 380 140 Balance 915 2660.0 1768.0 485.6 Weight 63.4 kg 71.809 kg 70.052 kg 70.398 kg Gen: intubated, poorly responsive Heart: RRR Lung: scattered rhonchi Abd: soft, nontender Ext: + edema CBC, BMP 07/06/18 05:30 07/06/18 05:30 Active Medications Acetaminophen (Ofirmev Injection -) 1,000 mg IVPB Q6H PRN PRN Reason: FEVER Albumin Human (Albumin Human 25%) 12.5 gm IVPB Q30M [facility] Stop: 07/06/18 12:16 Ascorbic Acid (Vitamin C -) 500 mg PO BID [facility] Last Admin: 07/06/18 10:49 Dose: 500 mg Doxycycline Hyclate (Vibramycin -) 100 mg PO BID@1000,1800 [facility] Last Admin: 07/06/18 10:51 Dose: 100 mg Folic Acid (Folic Acid -) 1 mg PO DAILY [facility] Last Admin: 07/06/18 10:49 Dose: 1 mg IV Flush (Picc Line Flush) 8 ml IVPUSH PRN PRN PRN Reason: Protocol Propofol (Diprivan -) 1,000,000 mcg in 100 mls @ 1.902 mls/hr IVPB TITR [facility]; Protocol Last Admin: 07/04/18 09:27 Dose: 20 mcg/kg/min, 7.608 mls/hr Norepinephrine Bitartrate 8, (000 mcg/ Sodium Chloride) 250 mls @ 9.37 mls/hr IV TITR [facility]; Protocol Last Titration: 07/06/18 04:00 Dose: 2 mcg/min, 3.75 mls/hr Daptomycin 420 mg/ Sodium (Chloride) 50 mls @ 50 mls/hr IVPB DAILY [facility]; Protocol Last Admin: 07/05/18 11:58 Dose: Not Given Sodium Chloride (Normal Saline -) 250 mls @ 3,000 mls/hr IV PRN PRN PRN Reason: Hypotension during Dialysis Stop: 07/07/18 10:38 Insulin Aspart (Novolog Vial Sliding Scale -) 1 vial SQ TIDAC [facility]; Protocol Last Admin: 07/06/18 06:27 Dose: Not Given Multi-Ingredient Ointment (Zinc Oxide) 1 applic TP BID [facility] Last Admin: 07/06/18 04:40 Dose: Not Given Ranitidine HCl (Zantac -) 150 mg PO BID [facility] Last Admin: 07/06/18 10:49 Dose: 150 mg Sodium Chloride (Sodium Chloride Tablet -) 1 gm PO BID [facility] Last Admin: 07/06/18 10:51 Dose: 1 gm Zinc Sulfate (Orazinc -) 220 mg PO DAILY [facility] Last Admin: 07/06/18 10:49 Dose: 220 mg ASSESSMENT AND PLAN: A/P Acute Hypoxic Respiratory Failure Pneumonia likely Aspiration Sepsis Acute Kidney Injury Volume Overload Metabolic Acidosis Thrombocytopenia Suspect Metastatic Disease Hyponatremia CAD HTN DM Hyperlipidemia Dementia Anemia Nondenominational - continue antibiotics - will place HD catheter - monitor urine output, creatinine - titrate pressors to maintain MAP >65 - continue salt tabs - monitor lytes - minimize sedation to assess mental statuts - enteral feeds - DVT/GI prophylaxis - poor overall prognosis, continue discussions regarding goals of care - continue ICU monitoring critical care time spent in reviewing chart, evaluating patient and formulating plan 35 min
[2018-07-06] MEDS ORDERED: MIDAZOLAM HCL 2 MG/2 ML SINGLE DOSE VIAL ONE (12:29)
[2018-07-06] MEDS ORDERED: PT OWN MED DRAWER 7, Y5N ONE (12:34)
[2018-07-06] MEDS ORDERED: SODIUM CHLORIDE 250 ML IV PRN (13:11)
--- NOTE | 2018-07-06 13:16 | PROC ---
<Lashaun Rodriguez - Last Filed: 07/06/18 13:15> Central Line Insertion Indication: Other (HD) Risks and Benefits Explained: Yes (to proxy) Consent on Chart: Yes Central Line: Dialysis Cath, Tri Lumen Anesthesia: 1% Lidocaine Sterile Technique: Yes Ultrasound Guided Assistance: Yes Position: Left Internal Jugular Post Insertion: Yes: Chest X-Ray Ordered Sterile Dressing Applied: Yes <Evangelista Melendez MD - Last Filed: 07/06/18 13:22> Procedure Note Procedure: I supervised and was present during the entire procedure. Evangelista Melendez MD
[2018-07-06] MEDS: DAPTOMYCIN 420 MG in SODIUM CHLORIDE 50 ML IVPB SCH (13:36)
--- NOTE | 2018-07-06 14:11 | PN ---
Physical Exam: SUBJECTIVE: Patient seen and examined at bedside. Intubated, off sedation. OBJECTIVE: Vital Signs Period Temp Pulse Resp BP Sys/Prado Pulse Ox Last 24 Hr 97.4 F-99.6 F 75-88 12-30 102-132/42-69 100-100 GENERAL: off sedation, opens eyes to vigorous sternal rub HEAD: NC/AT EYES: pupils dilated but responsive ARS, NOSE, THROAT: Moist mucous membranes. NECK: supple without JVD LUNGS: diffusely coarse breath sounds HEART: tachycardic no m/r/g ABDOMEN: absent bowel sounds, soft, PEG in place MUSCULOSKELETAL: No bony deformities EXTREMITIES: 1+ pulses, warm, well-perfused. weeping edema throughout. NEUROLOGICAL: GCS 4 (eyes open to pain, intubated, negligible motor response to pain), corneal reflex not assessed but noted to be absent in ICU intake evaluation SKIN: Warm, dry Laboratory Results - last 24 hr 07/05/18 07/06/18 07/06/18 16:27 05:02 05:30 WBC 12.1 H RBC 2.47 L Hgb 6.5 L* Hct 21.0 L MCV 84.9 MCH 26.4 MCHC 31.1 L RDW 23.6 H Plt Count 79 L MPV 8.6 Absolute Neuts (auto) 10.2 H Neutrophils % 84.1 H Lymphocytes % 10.2 D Monocytes % 3.4 L Eosinophils % 2.1 D Basophils % 0.2 Nucleated RBC % 1 H PT with INR INR PTT (Actin FS) Sodium Potassium Chloride Carbon Dioxide Anion Gap BUN Creatinine Creat Clearance w eGFR POC Glucometer 90.29955 79.71367 Random Glucose Calcium Phosphorus Magnesium Total Bilirubin Direct Bilirubin AST ALT Alkaline Phosphatase Total Protein Albumin 07/06/18 07/06/18 07/06/18 05:30 05:30 12:10 WBC RBC Hgb Hct MCV MCH MCHC RDW Plt Count MPV Absolute Neuts (auto) Neutrophils % Lymphocytes % Monocytes % Eosinophils % Basophils % Nucleated RBC % PT with INR 19.60 H INR 1.65 H PTT (Actin FS) 49.1 H Sodium 126 L Potassium 3.7 Chloride 102 Carbon Dioxide 13 L Anion Gap 12 BUN 102 H Creatinine 2.0 H Creat Clearance w eGFR 32.82 POC Glucometer 154.95932 Random Glucose 58 L Calcium 7.2 L Phosphorus 4.4 Magnesium 1.8 Total Bilirubin 4.5 H Direct Bilirubin 3.9 H AST 92 H ALT 15 Alkaline Phosphatase 565 H Total Protein 5.3 L Albumin 1.5 L Active Medications Generic Name Dose Route Start Last Admin Trade Name Denae PRN Reason Stop Dose Admin Acetaminophen 1,000 mg 07/02/18 04:52 Ofirmev Injection - IVPB Q6H PRN FEVER Albumin Human 12.5 gm 07/06/18 13:15 Albumin Human 25% IVPB 07/06/18 14:46 Q30M [facility] Ascorbic Acid 500 mg 06/13/18 22:00 07/06/18 10:49 Vitamin C - PO 500 mg BID [facility] Administration Doxycycline Hyclate 100 mg 06/18/18 18:00 07/06/18 10:51 Vibramycin - PO 100 mg BID@1000,1800 [facility] Administration Folic Acid 1 mg 06/15/18 10:00 07/06/18 10:49 Folic Acid - PO 1 mg DAILY [facility] Administration IV Flush 8 ml 06/21/18 09:17 Picc Line Flush IVPUSH PRN PRN Protocol Propofol 1,000,000 mcg in 100 mls @ 1.902 mls/hr 07/03/18 22:00 07/04/18 09: 27 Diprivan - IVPB 20 mcg/kg/min TITR [facility] 7.608 mls/hr Administration Protocol 5 MCG/KG/MIN Norepinephrine Bitartrate 8, 250 mls @ 9.37 mls/hr 07/04/18 11:08 07/06/18 04 :00 000 mcg/ Sodium Chloride IV 2 mcg/min TITR [facility] 3.75 mls/hr Titration Protocol 5 MCG/MIN Daptomycin 420 mg/ Sodium 50 mls @ 50 mls/hr 07/04/18 18:08 07/06/18 13:36 Chloride IVPB 50 mls/hr DAILY [facility] Administration Protocol Sodium Chloride 250 mls @ 3,000 mls/hr 07/06/18 13:11 Normal Saline - IV 07/07/18 13:10 PRN PRN Hypotension during Dialysis Insulin Aspart 1 vial 07/03/18 07:00 07/06/18 12:42 Novolog Vial Sliding Scale - SQ Not Given TIDAC [facility] Protocol Multi-Ingredient Ointment 1 applic 06/13/18 22:00 07/06/18 04:40 Zinc Oxide TP Not Given BID [facility] Ranitidine HCl 150 mg 07/06/18 10:00 07/06/18 10:49 Zantac - PO 150 mg BID [facility] Administration Sodium Chloride 1 gm 07/02/18 16:50 07/06/18 10:51 Sodium Chloride Tablet - PO 1 gm BID [facility] Administration Zinc Sulfate 220 mg 06/21/18 10:00 07/06/18 10:49 Orazinc - PO 220 mg DAILY [facility] Administration ASSESSMENT/PLAN: 72 y/o M w/ PMH PD, CVA, HTN, HLD, IDDM, osteomyelitis, anemia, COPD, CAD, 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 #neurologic -likely anoxic brain injury -GCS 4 -continue life support measures #pulmonary -aspiration noted during intubation -titrate vent for O2 sat > 90% -improved on re-repeat ABG, pH 7.28 #cardiac -septic shock, titrate levophed to maintain MAP > 65 -avoid AV chris blocking agents -new onset Afib did not respond to digoxin x 2, did break with amiodarone bolus #renal -AM labs: Na 126, BUN 102, Cr 2 -trialysis catheter placed in left IJ, for HD today, target Na 129 -cont nepro feeds -cont NaCl 1g BID -trend CMP #ID -sepsis 2/2 UTI and chronic ulcer infection, now in septic shock on pressors -yeast on sputum Cx -multiple antimicrobial agents recommended by ID, HCP only agrees to doxycycline at this time #GI -rising INR, total and direct bilirubin, alk phos -declining transaminases; likely worsening liver status with exhaustion of liver enzymes -ammonia wnl, neurologic issues therefore likely 2/2 anoxic injury -nepro feeds -trend CMP, coags #heme-onc -AM Hb 6.5 -Procrit 20k units x 5 days, heme agrees -PO vitamin K -stable thrombocytopenia -widely metastatic disease, Ca 19-9 14k therefore likely pancreatic Ca, prognosis grave -GOC initiated with HCP -prognosis explained to HCP in detail, all questions asked and answered, continues to request all aggressive measures -HCP opposes blood products in light of methodist views but agrees to albumin ( a blood product) #FEN -no IVF -trend CMP -nepro feeds #PPx -DVT: SCDs -GI: Zantac #dispo -monitor in ICU -full code Visit type - Emergency Visit Emergency Visit: No - New Patient This patient is new to me today: No - Critical Care Critical Care patient: Yes Total Critical Care Time (in minutes): 40 Critical Care Statement: The care of this patient involved high complexity decision making to prevent further life threatening deterioration of the patient 's condition and/or to evaluate & treat vital organ system(s) failure or risk of failure.
--- NOTE | 2018-07-06 15:19 | PN ---
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 with dialysis temp catheter no gross change in the patient intubated on pressors - Current Medication List Current Medications: Active Medications Acetaminophen (Ofirmev Injection -) 1,000 mg IVPB Q6H PRN PRN Reason: FEVER Ascorbic Acid (Vitamin C -) 500 mg PO BID [facility] Last Admin: 07/06/18 10:49 Dose: 500 mg Doxycycline Hyclate (Vibramycin -) 100 mg PO BID@1000,1800 [facility] Last Admin: 07/06/18 10:51 Dose: 100 mg Epoetin Darrell (Procrit -) 20,000 unit SQ DAILY [facility] Stop: 07/10/18 10:01 Folic Acid (Folic Acid -) 1 mg PO DAILY [facility] Last Admin: 07/06/18 10:49 Dose: 1 mg IV Flush (Picc Line Flush) 8 ml IVPUSH PRN PRN PRN Reason: Protocol Propofol (Diprivan -) 1,000,000 mcg in 100 mls @ 1.902 mls/hr IVPB TITR [facility]; Protocol Last Admin: 07/04/18 09:27 Dose: 20 mcg/kg/min, 7.608 mls/hr Norepinephrine Bitartrate 8, (000 mcg/ Sodium Chloride) 250 mls @ 9.37 mls/hr IV TITR [facility]; Protocol Last Titration: 07/06/18 04:00 Dose: 2 mcg/min, 3.75 mls/hr Daptomycin 420 mg/ Sodium (Chloride) 50 mls @ 50 mls/hr IVPB DAILY [facility]; Protocol Last Admin: 07/06/18 13:36 Dose: 50 mls/hr Sodium Chloride (Normal Saline -) 250 mls @ 3,000 mls/hr IV PRN PRN PRN Reason: Hypotension during Dialysis Stop: 07/07/18 13:10 Insulin Aspart (Novolog Vial Sliding Scale -) 1 vial SQ TIDAC [facility]; Protocol Last Admin: 07/06/18 12:42 Dose: Not Given Multi-Ingredient Ointment (Zinc Oxide) 1 applic TP BID [facility] Last Admin: 07/06/18 04:40 Dose: Not Given Ranitidine HCl (Zantac -) 150 mg PO BID [facility] Last Admin: 07/06/18 10:49 Dose: 150 mg Sodium Chloride (Sodium Chloride Tablet -) 1 gm PO BID [facility] Last Admin: 07/06/18 10:51 Dose: 1 gm Zinc Sulfate (Orazinc -) 220 mg PO DAILY [facility] Last Admin: 07/06/18 10:49 Dose: 220 mg - Objective Vital Signs: Vital Signs Temperature 97.3 F L 07/06/18 14:00 Pulse Rate 83 07/06/18 14:00 Respiratory Rate 16 07/06/18 14:00 Blood Pressure 103/52 L 07/06/18 14:00 O2 Sat by Pulse Oximetry (%) 100 07/05/18 21:01 Constitutional: Yes: Other Neck: Yes: Other (dialysis catheter in place) Cardiovascular: Yes: Pulse Irregular Respiratory: Yes: Intubated, Mechanically Ventilated Gastrointestinal: Yes: Normal Bowel Sounds, Soft, Other (peg) Extremities: Yes: Other Wound/Incision: Yes: Other (sacral decubitus) Neurological: Yes: Other Labs: CBC, BMP 07/06/18 05:30 07/06/18 05:30 INR, PTT INR 1.65 (0.83-1.09) H 07/06/18 05:30 Fibrinogen 319.0 mg/dL (238-498) 07/04/18 05:25 Assessment/Plan roblem List - Problems (1) Liver lesion Code(s): K76.9 - LIVER DISEASE, UNSPECIFIED (2) 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 (3) Abnormal liver enzymes Code(s): R74.8 - ABNORMAL LEVELS OF OTHER SERUM ENZYMES (4) Sacral decubitus ulcer, stage IV Code(s): L89.154 - PRESSURE ULCER OF SACRAL REGION, STAGE 4 (5) Sepsis Code(s): A41.9 - SEPSIS, UNSPECIFIED ORGANISM Qualifiers: Sepsis type: sepsis due to unspecified organism Qualified Code(s): A41.9 - Sepsis, unspecified organism (6) Anemia Code(s): D64.9 - ANEMIA, UNSPECIFIED (7) Bacteremia Code(s): R78.81 - BACTEREMIA (8) Fever Code(s): R50.9 - FEVER, UNSPECIFIED Qualifiers: Fever type: unspecified Qualified Code(s): R50.9 - Fever, unspecified (9) Basilic vein thrombosis Code(s): I82.619 - ACUTE EMBOLISM AND THROMBOSIS OF SUPERFIC VN UNSP UP EXTREM plan continue doxy patient has refused further abx says they will harm him suctioning rest as per icu nutrition resp support dialysis as per nephro patients prognosis is guarded cc 40 min
[2018-07-06] MEDS ORDERED: fentaNYL CITRATE 250 MCG/5 ML VIAL ONE (15:21)
[2018-07-06] MEDS: ALBUMIN HUMAN 25% 12.5 GM/50 ML VIAL IVPB SCH ×4 (16:13→18:40)
[2018-07-06] MEDS: SODIUM CHLORIDE IV SCH (16:22)
[2018-07-06] MEDS: NOREPINEPHRINE BITARTRATE IV SCH (16:22)
[2018-07-07 05:58] LABS: ARTERIAL BLD GAS O2 SATURATION 87.4 % (90-98.9); ARTERIAL BLOOD GAS BASE EXCESS -11.4 meq/l (-2-2)
[2018-07-07 05:58] LABS: BASO % 0.1 % (0-2.0); HEMATOCRIT 23.2 % (35.4-49); LYMPH % 7.9 % (8-40); MCH 25.9 pg (25.7-33.7); MCHC 30.4 g/dl (32.0-35.9); MEAN PLT VOLUME 8.9 fl (7.5-11.1); MONO % 4.5 % (3.8-10.2); NEUT % 86.5 % (42.8-82.8); PLATELET COUNT 80 K/MM3 (134-434); RBC 2.72 M/mm3 (4.00-5.60); RDW 23.5 % (11.9-15.9)
[2018-07-07 05:59] LABS: ALLENS TEST POSITIVE
[2018-07-07 06:00] LABS: ARTERIAL BLOOD GAS PCO2 29.1 mmHg (35-45); ARTERIAL BLOOD GAS PO2 57.9 mmHg (70-100)
[2018-07-07 06:20] LABS: INR 1.74 (0.83-1.09); PROTHROMBIN TIME (PATIENT) 20.6 SEC (9.7-13.0)
[2018-07-07 06:23] LABS: ACTIVATED PTT 49.1 SECONDS (25.2-36.5)
[2018-07-07] MEDS: INSULIN SLIDING SCALE (NOVOLOG) 1 VIAL SQ SCH ×3 (06:26→17:00)
[2018-07-07 07:40] LABS: ALBUMIN 1.8 g/dl (3.4-5.0); ALK PHOS 749 U/L (45-117); ANION GAP 14 MMOL/L (8-16); BILIRUBIN,DIRECT 4.3 mg/dL (0.0-0.2); BILIRUBIN,TOTAL 5.1 mg/dL (0.2-1); BLOOD UREA NITROGEN 70 mg/dL (7-18); CHLORIDE 102 mmol/L (98-107); CO2 17 mmol/L (21-32); CREATININE 1.7 mg/dL (0.55-1.3); GLUCOSE,RANDOM 105 mg/dL (74-106); PHOSPHOROUS 3.1 mg/dL (2.5-4.9); POTASSIUM 3.6 mmol/L (3.5-5.1); SGOT/AST 92 U/L (15-37); SGPT/ALT 16 U/L (13-61); SODIUM 133 mmol/L (136-145); TOT PROT 5.8 g/dl (6.4-8.2)
--- NOTE | 2018-07-07 07:54 | PN ---
Progress Note, Physician - Current Medication List Current Medications: Active Medications Acetaminophen (Ofirmev Injection -) 1,000 mg IVPB Q6H PRN PRN Reason: FEVER Ascorbic Acid (Vitamin C -) 500 mg PO BID [facility] Last Admin: 07/06/18 21:30 Dose: 500 mg Doxycycline Hyclate (Vibramycin -) 100 mg PO BID@1000,1800 [facility] Last Admin: 07/06/18 18:15 Dose: 100 mg Epoetin Darrell (Procrit -) 20,000 unit SQ DAILY [facility] Stop: 07/10/18 10:01 Folic Acid (Folic Acid -) 1 mg PO DAILY [facility] Last Admin: 07/06/18 10:49 Dose: 1 mg IV Flush (Picc Line Flush) 8 ml IVPUSH PRN PRN PRN Reason: Protocol Propofol (Diprivan -) 1,000,000 mcg in 100 mls @ 1.902 mls/hr IVPB TITR [facility]; Protocol Last Admin: 07/04/18 09:27 Dose: 20 mcg/kg/min, 7.608 mls/hr Norepinephrine Bitartrate 8, (000 mcg/ Sodium Chloride) 250 mls @ 9.37 mls/hr IV TITR [facility]; Protocol Last Titration: 07/07/18 06:26 Dose: 9 mcg/min, 16.87 mls/hr Daptomycin 420 mg/ Sodium (Chloride) 50 mls @ 50 mls/hr IVPB DAILY [facility]; Protocol Last Admin: 07/06/18 13:36 Dose: 50 mls/hr Sodium Chloride (Normal Saline -) 250 mls @ 3,000 mls/hr IV PRN PRN PRN Reason: Hypotension during Dialysis Stop: 07/07/18 13:10 Insulin Aspart (Novolog Vial Sliding Scale -) 1 vial SQ TIDAC [facility]; Protocol Last Admin: 07/07/18 06:26 Dose: Not Given Multi-Ingredient Ointment (Zinc Oxide) 1 applic TP BID [facility] Last Admin: 07/06/18 21:30 Dose: Not Given Ranitidine HCl (Zantac -) 150 mg PO BID [facility] Last Admin: 07/06/18 21:29 Dose: 150 mg Sodium Chloride (Sodium Chloride Tablet -) 1 gm PO BID [facility] Last Admin: 07/06/18 21:29 Dose: 1 gm Zinc Sulfate (Orazinc -) 220 mg PO DAILY [facility] Last Admin: 07/06/18 10:49 Dose: 220 mg - Objective Vital Signs: Vital Signs Temperature 98.6 F 07/07/18 06:00 Pulse Rate 106 H 07/07/18 07:00 Respiratory Rate 34 H 07/07/18 07:00 Blood Pressure 112/56 L 07/07/18 07:00 O2 Sat by Pulse Oximetry (%) 100 07/07/18 07:00 Cardiovascular: Yes: S1, S2 Respiratory: Yes: Mechanically Ventilated Gastrointestinal: Yes: Normal Bowel Sounds, Soft Neurological: Yes: Unresponsive Labs: CBC, BMP 07/07/18 05:30 07/07/18 05:30 INR, PTT INR 1.74 (0.83-1.09) H 07/07/18 05:30 Fibrinogen 152.0 mg/dL (238-498) L D 07/07/18 05:30 Problem List - Problems (1) Acute respiratory failure with hypoxia Code(s): J96.01 - ACUTE RESPIRATORY FAILURE WITH HYPOXIA (2) Metabolic encephalopathy Code(s): G93.41 - METABOLIC ENCEPHALOPATHY (3) 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 (4) Sacral decubitus ulcer Code(s): L89.159 - PRESSURE ULCER OF SACRAL REGION, UNSPECIFIED STAGE (5) Hyponatremia Code(s): E87.1 - HYPO-OSMOLALITY AND HYPONATREMIA (6) Sepsis Code(s): A41.9 - SEPSIS, UNSPECIFIED ORGANISM Qualifiers: Sepsis type: sepsis due to unspecified organism Qualified Code(s): A41.9 - Sepsis, unspecified organism (7) Anemia Code(s): D64.9 - ANEMIA, UNSPECIFIED Assessment/Plan - Problems (1) JORDAN (acute kidney injury) Assessment/Plan: trial of lasix albumin oliguric plan for HD per renal cath placed Code(s): N17.9 - ACUTE KIDNEY FAILURE, UNSPECIFIED (2) Sacral decubitus ulcer Assessment/Plan: Microbiology 06/12/18 17:22 Decubiti Gram Stain - Final 06/12/18 17:22 Decubiti Wound Culture - Final S Aureus Vr Ec Faecalis Proteus Mirabilis on dapto and doxycyline meropenem stopped elevated WBC count trending down Code(s): L89.159 - PRESSURE ULCER OF SACRAL REGION, UNSPECIFIED STAGE (3) Anemia Assessment/Plan: refusing blood transfusion- jehovah witness drop to 6.5 today procrit given Code(s): D64.9 - ANEMIA, UNSPECIFIED (4) Abnormal liver enzymes Assessment/Plan: abdominal MRI report- innumerable hepatic lesions,thoracic and lumbar lesion suscipicious for metastatic disease \ Code(s): R74.8 - ABNORMAL LEVELS OF OTHER SERUM ENZYMES (5) Bacteremia Assessment/Plan: Microbiology Microbiology 06/12/18 17:22 Decubiti Gram Stain - Final 06/12/18 17:22 Decubiti Wound Culture - Final S Aureus Vr Ec Faecalis Proteus Mirabilis 06/12/18 17:22 Blood - Peripheral Venous Blood Culture - Final Escherichia Coli Esbl Cook Helper Preserves 06/12/18 17:10 Blood - Peripheral Venous Blood Culture - Final Escherichia Coli Esbl Cook Helper Preserves 06/12/18 09:20 Urine - Urine - Catheterized Urine Culture - Final Proteus Mirabilis on , daptomycin and doxycycline- gram negative bacteremia Code(s): R78.81 - BACTEREMIA (6) Hyponatremia Assessment/Plan: salt tablets renal on board na from 121 to 126 Code(s): E87.1 - HYPO-OSMOLALITY AND HYPONATREMIA (7) Sepsis Assessment/Plan: icu on vent intubated on norepi for hemodynamic support - Code(s): A41.9 - SEPSIS, UNSPECIFIED ORGANISM Qualifiers: Sepsis type: sepsis due to unspecified organism Qualified Code(s): A41.9 - Sepsis, unspecified organism
[2018-07-07] MEDS ORDERED: PT OWN MED DRAWER 7, Y5N ONE ×2 (09:39→12:42)
[2018-07-07] MEDS ORDERED: EPOETIN ALFA 20,000 UNIT/1 ML VIAL SQ SCH (10:00)
[2018-07-07] MEDS: DAPTOMYCIN 420 MG in SODIUM CHLORIDE 50 ML IVPB SCH (10:15)
[2018-07-07] MEDS: DOXYCYCLINE HYCLATE 100 MG CAPSULE PO SCH ×2 (10:20→17:20)
[2018-07-07] MEDS: ZINC SULFATE 220 MG CAPSULE (FP) PO SCH (10:20)
[2018-07-07] MEDS: RANITIDINE HCL 150 MG TABLET (FP) PO SCH ×2 (10:20→21:21)
[2018-07-07] MEDS: SODIUM CHLORIDE 1 GM TABLET PO SCH ×2 (10:20→21:22)
[2018-07-07] MEDS: ASCORBIC ACID 500 MG TABLET (FP) PO SCH ×2 (10:20→21:21)
[2018-07-07] MEDS: FOLIC ACID 1 MG TABLET (FP) PO SCH (10:20)
[2018-07-07] MEDS: ZINC OXIDE 20% TOPICAL OINTMENT 30 GM TUBE TP SCH ×2 (10:21→21:21)
[2018-07-07] MEDS ORDERED: FUROSEMIDE 40 MG/4 ML INJECTABLE VIAL IVPUSH ONE (11:06)
--- NOTE | 2018-07-07 11:24 | PN ---
Teaching Attending Note Name of Resident: Vern Alston ATTENDING PHYSICIAN STATEMENT I saw and evaluated the patient. I reviewed the resident's note and discussed the case with the resident. I agree with the resident's findings and plan as documented. SUBJECTIVE: Pt seen and examined in the ICU. Remains intubated, poorly responsive off sedation. More tachypneic today. Tolerated HD yesterday. Remains on levophed gtt. OBJECTIVE: Vital Signs Period Temp Pulse Resp BP Sys/Prado Pulse Ox Last 24 Hr 97.3 F-99.5 F 61-120 16-35 77-127/44-65 100-100 Intake & Output 07/04/18 07/05/18 07/06/18 07/07/18 23:59 23:59 23:59 23:59 Intake Total 2845.0 2148.0 625.6 804 Output Total 185 380 140 100 Balance 2660.0 1768.0 485.6 704 Weight 71.809 kg 70.052 kg 70.398 kg 70.845 kg Gen: intubated, poorly responsive Heart: tachycardic Lung: scattered rhonchi Abd: soft, nontender Ext: + edema CBC, BMP 07/07/18 05:30 07/07/18 05:30 Active Medications Acetaminophen (Ofirmev Injection -) 1,000 mg IVPB Q6H PRN PRN Reason: FEVER Albumin Human (Albumin Human 25%) 25 gm IVPB Q6H [facility] Stop: 07/07/18 17:16 Ascorbic Acid (Vitamin C -) 500 mg PO BID [facility] Last Admin: 07/07/18 10:20 Dose: 500 mg Doxycycline Hyclate (Vibramycin -) 100 mg PO BID@1000,1800 [facility] Last Admin: 07/07/18 10:20 Dose: 100 mg Epoetin Darrell (Procrit -) 20,000 unit SQ DAILY [facility] Stop: 07/10/18 10:01 Folic Acid (Folic Acid -) 1 mg PO DAILY [facility] Last Admin: 07/07/18 10:20 Dose: 1 mg IV Flush (Picc Line Flush) 8 ml IVPUSH PRN PRN PRN Reason: Protocol Propofol (Diprivan -) 1,000,000 mcg in 100 mls @ 1.902 mls/hr IVPB TITR [facility]; Protocol Last Admin: 07/04/18 09:27 Dose: 20 mcg/kg/min, 7.608 mls/hr Norepinephrine Bitartrate 8, (000 mcg/ Sodium Chloride) 250 mls @ 9.37 mls/hr IV TITR [facility]; Protocol Last Titration: 07/07/18 06:26 Dose: 9 mcg/min, 16.87 mls/hr Daptomycin 420 mg/ Sodium (Chloride) 50 mls @ 50 mls/hr IVPB DAILY [facility]; Protocol Last Admin: 07/07/18 10:15 Dose: Not Given Sodium Chloride (Normal Saline -) 250 mls @ 3,000 mls/hr IV PRN PRN PRN Reason: Hypotension during Dialysis Stop: 07/07/18 13:10 Insulin Aspart (Novolog Vial Sliding Scale -) 1 vial SQ TIDAC [facility]; Protocol Last Admin: 07/07/18 10:52 Dose: 2 units Lactobacillus Acidophilus (Bacid -) 1 tab PO DAILY [facility] Multi-Ingredient Ointment (Zinc Oxide) 1 applic TP BID [facility] Last Admin: 07/07/18 10:21 Dose: 1 applic Ranitidine HCl (Zantac -) 150 mg PO BID [facility] Last Admin: 07/07/18 10:20 Dose: 150 mg Sodium Chloride (Sodium Chloride Tablet -) 1 gm PO BID [facility] Last Admin: 07/07/18 10:20 Dose: 1 gm Zinc Sulfate (Orazinc -) 220 mg PO DAILY [facility] Last Admin: 07/07/18 10:20 Dose: 220 mg ASSESSMENT AND PLAN: A/P Acute Hypoxic Respiratory Failure Pneumonia likely Aspiration Septic Shock Acute Kidney Injury Volume Overload Metabolic Acidosis Thrombocytopenia Suspect Metastatic Disease Hyponatremia CAD HTN DM Hyperlipidemia Dementia Anemia Protestant - continue antibiotics - HD per renal - albumin/lasix today - monitor urine output, creatinine - titrate pressors to maintain MAP >65 - continue salt tabs - monitor lytes - minimize sedation to assess mental statuts - enteral feeds - DVT/GI prophylaxis - poor overall prognosis, continue discussions regarding goals of care - continue ICU monitoring critical care time spent in reviewing chart, evaluating patient and formulating plan 35 min
[2018-07-07] MEDS ORDERED: FUROSEMIDE 40 MG/4 ML INJECTABLE VIAL ONE (11:27)
[2018-07-07] MEDS: NOREPINEPHRINE BITARTRATE IV SCH ×2 (11:32→19:09)
[2018-07-07] MEDS: SODIUM CHLORIDE IV SCH ×2 (11:32→19:09)
[2018-07-07] MEDS: LACTOBACILLUS ACIDOPHILUS 1 TABLET PO SCH (12:02)
--- NOTE | 2018-07-07 12:52 | PN ---
Progress Note, Physician History of Present Illness: Pt seen and examined at bedside. He remains in the ICU. He tolerated HD yesterday. - Current Medication List Current Medications: Active Medications Acetaminophen (Ofirmev Injection -) 1,000 mg IVPB Q6H PRN PRN Reason: FEVER Albumin Human (Albumin Human 25%) 25 gm IVPB Q6H [facility] Stop: 07/07/18 17:16 Ascorbic Acid (Vitamin C -) 500 mg PO BID [facility] Last Admin: 07/07/18 10:20 Dose: 500 mg Doxycycline Hyclate (Vibramycin -) 100 mg PO BID@1000,1800 [facility] Last Admin: 07/07/18 10:20 Dose: 100 mg Epoetin Darrell (Procrit -) 20,000 unit SQ DAILY [facility] Stop: 07/10/18 10:01 Last Admin: 07/07/18 11:31 Dose: 20,000 unit Folic Acid (Folic Acid -) 1 mg PO DAILY [facility] Last Admin: 07/07/18 10:20 Dose: 1 mg IV Flush (Picc Line Flush) 8 ml IVPUSH PRN PRN PRN Reason: Protocol Propofol (Diprivan -) 1,000,000 mcg in 100 mls @ 1.902 mls/hr IVPB TITR [facility]; Protocol Last Admin: 07/04/18 09:27 Dose: 20 mcg/kg/min, 7.608 mls/hr Norepinephrine Bitartrate 8, (000 mcg/ Sodium Chloride) 250 mls @ 9.37 mls/hr IV TITR [facility]; Protocol Last Admin: 07/07/18 11:32 Dose: Not Given Daptomycin 420 mg/ Sodium (Chloride) 50 mls @ 50 mls/hr IVPB DAILY [facility]; Protocol Last Admin: 07/07/18 10:15 Dose: Not Given Sodium Chloride (Normal Saline -) 250 mls @ 3,000 mls/hr IV PRN PRN PRN Reason: Hypotension during Dialysis Stop: 07/07/18 13:10 Insulin Aspart (Novolog Vial Sliding Scale -) 1 vial SQ TIDAC [facility]; Protocol Last Admin: 07/07/18 10:52 Dose: 2 units Lactobacillus Acidophilus (Bacid -) 1 tab PO DAILY [facility] Last Admin: 07/07/18 12:02 Dose: 1 tab Multi-Ingredient Ointment (Zinc Oxide) 1 applic TP BID [facility] Last Admin: 07/07/18 10:21 Dose: 1 applic Ranitidine HCl (Zantac -) 150 mg PO BID [facility] Last Admin: 07/07/18 10:20 Dose: 150 mg Sodium Chloride (Sodium Chloride Tablet -) 1 gm PO BID [facility] Last Admin: 07/07/18 10:20 Dose: 1 gm Zinc Sulfate (Orazinc -) 220 mg PO DAILY [facility] Last Admin: 07/07/18 10:20 Dose: 220 mg - Objective Vital Signs: Vital Signs Temperature 99.5 F 07/07/18 10:00 Pulse Rate 103 H 07/07/18 12:00 Respiratory Rate 6 L 07/07/18 12:00 Blood Pressure 99/47 L 07/07/18 12:00 O2 Sat by Pulse Oximetry (%) 100 07/07/18 08:37 Constitutional: Yes: Calm Eyes: Yes: Conjunctiva Clear Cardiovascular: Yes: S1, S2 Respiratory: Yes: Mechanically Ventilated Gastrointestinal: Yes: Soft Genitourinary: Yes: [place] Present, Oliguria Edema: Yes Edema: LUE: 3+, RUE: 3+, LLE: 2+, RLE: 2+ Neurological: Yes: Lethargy Labs: CBC, BMP 07/07/18 05:30 07/07/18 05:30 INR, PTT INR 1.74 (0.83-1.09) H 07/07/18 05:30 Fibrinogen 152.0 mg/dL (238-498) L D 07/07/18 05:30 - ....Imaging Chest X-ray: Report Reviewed Problem List - Problems (1) JORDAN (acute kidney injury) Code(s): N17.9 - ACUTE KIDNEY FAILURE, UNSPECIFIED (2) Hyponatremia Code(s): E87.1 - HYPO-OSMOLALITY AND HYPONATREMIA Assessment/Plan Current Medications Generic Name Dose Route Start Last Admin Trade Name Freq PRN Reason Stop Dose Admin Acetaminophen 1,000 mg 07/02/18 04:52 Ofirmev Injection - IVPB Q6H PRN FEVER Albumin Human 25 gm 07/07/18 11:15 Albumin Human 25% IVPB 07/07/18 17:16 Q6H [facility] Ascorbic Acid 500 mg 06/13/18 22:00 07/07/18 10:20 Vitamin C - PO 500 mg BID [facility] Administration Doxycycline Hyclate 100 mg 06/18/18 18:00 07/07/18 10:20 Vibramycin - PO 100 mg BID@1000,1800 [facility] Administration Epoetin Darrell 20,000 unit 07/07/18 10:00 07/07/18 11:31 Procrit - SQ 07/10/18 10:01 20,000 unit DAILY [facility] Administration Folic Acid 1 mg 06/15/18 10:00 07/07/18 10:20 Folic Acid - PO 1 mg DAILY [facility] Administration IV Flush 8 ml 06/21/18 09:17 Picc Line Flush IVPUSH PRN PRN Protocol Propofol 1,000,000 mcg in 100 mls @ 1.902 mls/hr 07/03/18 22:00 07/04/18 09: 27 Diprivan - IVPB 20 mcg/kg/min TITR [facility] 7.608 mls/hr Administration Protocol 5 MCG/KG/MIN Norepinephrine Bitartrate 8, 250 mls @ 9.37 mls/hr 07/04/18 11:08 07/07/18 11 :32 000 mcg/ Sodium Chloride IV Not Given TITR [facility] Protocol 5 MCG/MIN Daptomycin 420 mg/ Sodium 50 mls @ 50 mls/hr 07/04/18 18:08 07/07/18 10:15 Chloride IVPB Not Given DAILY [facility] Protocol Sodium Chloride 250 mls @ 3,000 mls/hr 07/06/18 13:11 Normal Saline - IV 07/07/18 13:10 PRN PRN Hypotension during Dialysis Insulin Aspart 1 vial 07/03/18 07:00 07/07/18 10:52 Novolog Vial Sliding Scale - SQ 2 units TIDAC [facility] Administration Protocol Lactobacillus Acidophilus 1 tab 07/07/18 11:15 07/07/18 12:02 Bacid - PO 1 tab DAILY [facility] Administration Multi-Ingredient Ointment 1 applic 06/13/18 22:00 07/07/18 10:21 Zinc Oxide TP 1 applic BID [facility] Administration Ranitidine HCl 150 mg 07/06/18 10:00 07/07/18 10:20 Zantac - PO 150 mg BID [facility] Administration Sodium Chloride 1 gm 07/02/18 16:50 07/07/18 10:20 Sodium Chloride Tablet - PO 1 gm BID [facility] Administration Zinc Sulfate 220 mg 06/21/18 10:00 07/07/18 10:20 Orazinc - PO 220 mg DAILY [facility] Administration Impression 1. hyponatremia 2. JORDAN 3. resp failure s/p intubation 4. possible liver mets 5. s/p peg 6. s/p sepsis 7. CAD 8. HTN 9. hyperlipidemia 10. parkinsons 11. DM 12. anemia Plan - HD in am - give lasix 80 mg IV with albumin and monitor urine output - discussed with ICU team - discussed plan with HCP - will UF more volume with HD tomorrow as tolerated - pressors for map of 65 - cxr in am - vent support - will follow - sodium is improving - minimize fluid intake - acidosis is improving Dr Coe
--- NOTE | 2018-07-07 13:08 | PN ---
Physical Exam: SUBJECTIVE: Patient seen and examined at bedside. Intubated, off sedation. OBJECTIVE: Vital Signs Period Temp Pulse Resp BP Sys/Prado Pulse Ox Last 24 Hr 97.3 F-99.5 F 61-120 6-35 77-127/44-65 100-100 GENERAL: off sedation, opens eyes to vigorous sternal rub HEAD: NC/AT EYES: pupils dilated but responsive, +scleral icterus ARS, NOSE, THROAT: Moist mucous membranes NECK: supple, trachea midline LUNGS: diffusely coarse breath sounds HEART: tachycardic no m/r/g ABDOMEN: hypoactive bowel sounds, soft, PEG in place MUSCULOSKELETAL: No bony deformities EXTREMITIES: 1+ pulses, warm, well-perfused. weeping edema throughout NEUROLOGICAL: GCS 4 (eyes open to pain, intubated, negligible motor response to pain), corneal reflex not assessed but noted to be absent in ICU intake evaluation SKIN: Chronic sacral decub ulcer stage 4 now with bleeding drainage and new tunneling; jaundice throughout Laboratory Results - last 24 hr 07/06/18 07/06/18 07/06/18 12:10 16:18 20:52 WBC RBC Hgb Hct MCV MCH MCHC RDW Plt Count MPV Absolute Neuts (auto) Neutrophils % Lymphocytes % Monocytes % Eosinophils % Basophils % Nucleated RBC % PT with INR INR PTT (Actin FS) Fibrinogen Puncture Site ABG pH ABG pCO2 at Pt Temp ABG pO2 at Pt Temp ABG HCO3 ABG O2 Sat (Measured) ABG O2 Content ABG Base Excess Aly Test O2 Delivery Device Oxygen Flow Rate Vent Mode Vent Rate Mechanical Rate PEEP Pressure Support Vent Sodium Potassium Chloride Carbon Dioxide Anion Gap BUN Creatinine Creat Clearance w eGFR POC Glucometer 154.40751 161.43597 107.29593 Random Glucose Calcium Phosphorus Magnesium Total Bilirubin Direct Bilirubin AST ALT Alkaline Phosphatase Total Protein Albumin Stool Occult Blood 07/07/18 07/07/18 07/07/18 05:17 05:30 05:30 WBC 17.0 H RBC 2.72 L Hgb 7.0 L Hct 23.2 L MCV 85.0 MCH 25.9 MCHC 30.4 L RDW 23.5 H Plt Count 80 L MPV 8.9 Absolute Neuts (auto) 14.7 H Neutrophils % 86.5 H Lymphocytes % 7.9 L D Monocytes % 4.5 Eosinophils % 1.0 Basophils % 0.1 Nucleated RBC % 1 H PT with INR 20.60 H INR 1.74 H PTT (Actin FS) 49.1 H Fibrinogen Puncture Site ABG pH ABG pCO2 at Pt Temp ABG pO2 at Pt Temp ABG HCO3 ABG O2 Sat (Measured) ABG O2 Content ABG Base Excess Aly Test O2 Delivery Device Oxygen Flow Rate Vent Mode Vent Rate Mechanical Rate PEEP Pressure Support Vent Sodium Potassium Chloride Carbon Dioxide Anion Gap BUN Creatinine Creat Clearance w eGFR POC Glucometer 131.98918 Random Glucose Calcium Phosphorus Magnesium Total Bilirubin Direct Bilirubin AST ALT Alkaline Phosphatase Total Protein Albumin Stool Occult Blood 07/07/18 07/07/18 07/07/18 05:30 05:30 06:00 WBC RBC Hgb Hct MCV MCH MCHC RDW Plt Count MPV Absolute Neuts (auto) Neutrophils % Lymphocytes % Monocytes % Eosinophils % Basophils % Nucleated RBC % PT with INR INR PTT (Actin FS) Fibrinogen 152.0 L D Puncture Site Right radial ABG pH 7.30 L ABG pCO2 at Pt Temp 29.1 L ABG pO2 at Pt Temp 57.9 L D ABG HCO3 13.7 L* ABG O2 Sat (Measured) 87.4 L ABG O2 Content 8.3 L* ABG Base Excess -11.4 L* Aly Test Positive O2 Delivery Device Mech vent Oxygen Flow Rate 40% Vent Mode A/c Vent Rate 12 Mechanical Rate Yes PEEP 5.0 Pressure Support Vent 400 Sodium 133 L Potassium 3.6 Chloride 102 Carbon Dioxide 17 L Anion Gap 14 BUN 70 H Creatinine 1.7 H Creat Clearance w eGFR 39.60 POC Glucometer Random Glucose 105 Calcium 8.0 L Phosphorus 3.1 Magnesium 2.0 Total Bilirubin 5.1 H Direct Bilirubin 4.3 H AST 92 H ALT 16 Alkaline Phosphatase 749 H Total Protein 5.8 L Albumin 1.8 L Stool Occult Blood 07/07/18 12:15 WBC RBC Hgb Hct MCV MCH MCHC RDW Plt Count MPV Absolute Neuts (auto) Neutrophils % Lymphocytes % Monocytes % Eosinophils % Basophils % Nucleated RBC % PT with INR INR PTT (Actin FS) Fibrinogen Puncture Site ABG pH ABG pCO2 at Pt Temp ABG pO2 at Pt Temp ABG HCO3 ABG O2 Sat (Measured) ABG O2 Content ABG Base Excess Aly Test O2 Delivery Device Oxygen Flow Rate Vent Mode Vent Rate Mechanical Rate PEEP Pressure Support Vent Sodium Potassium Chloride Carbon Dioxide Anion Gap BUN Creatinine Creat Clearance w eGFR POC Glucometer Random Glucose Calcium Phosphorus Magnesium Total Bilirubin Direct Bilirubin AST ALT Alkaline Phosphatase Total Protein Albumin Stool Occult Blood Cancelled Active Medications Generic Name Dose Route Start Last Admin Trade Name Denae PRN Reason Stop Dose Admin Acetaminophen 1,000 mg 07/02/18 04:52 Ofirmev Injection - IVPB Q6H PRN FEVER Albumin Human 25 gm 07/07/18 11:15 Albumin Human 25% IVPB 07/07/18 17:16 Q6H JEF Albumin Human 12.5 gm 07/08/18 13:00 Albumin Human 25% IVPB Q30M JEF Ascorbic Acid 500 mg 06/13/18 22:00 07/07/18 10:20 Vitamin C - PO 500 mg BID [facility] Administration Doxycycline Hyclate 100 mg 06/18/18 18:00 07/07/18 10:20 Vibramycin - PO 100 mg BID@1000,1800 [facility] Administration Epoetin Darrell 20,000 unit 07/07/18 10:00 07/07/18 11:31 Procrit - SQ 07/10/18 10:01 20,000 unit DAILY [facility]EF Administration Epoetin Darrell 10,000 unit 07/08/18 12:53 Epogen - IVPUSH 07/08/18 12:54 ONCE ONE Folic Acid 1 mg 06/15/18 10:00 07/07/18 10:20 Folic Acid - PO 1 mg DAILY [facility] Administration IV Flush 8 ml 06/21/18 09:17 Picc Line Flush IVPUSH PRN PRN Protocol Propofol 1,000,000 mcg in 100 mls @ 1.902 mls/hr 07/03/18 22:00 07/04/18 09: 27 Diprivan - IVPB 20 mcg/kg/min TITR JEF 7.608 mls/hr Administration Protocol 5 MCG/KG/MIN Norepinephrine Bitartrate 8, 250 mls @ 9.37 mls/hr 07/04/18 11:08 07/07/18 11 :32 000 mcg/ Sodium Chloride IV Not Given TITR JEF Protocol 5 MCG/MIN Daptomycin 420 mg/ Sodium 50 mls @ 50 mls/hr 07/04/18 18:08 07/07/18 10:15 Chloride IVPB Not Given DAILY [facility]EF Protocol Sodium Chloride 250 mls @ 3,000 mls/hr 07/06/18 13:11 Normal Saline - IV 07/07/18 13:10 PRN PRN Hypotension during Dialysis Sodium Chloride 250 mls @ 3,000 mls/hr 07/07/18 12:53 Normal Saline - IV 07/08/18 12:53 PRN PRN Hypotension during Dialysis Insulin Aspart 1 vial 07/03/18 07:00 07/07/18 10:52 Novolog Vial Sliding Scale - SQ 2 units TIDAC [facility] Administration Protocol Lactobacillus Acidophilus 1 tab 07/07/18 11:15 07/07/18 12:02 Bacid - PO 1 tab DAILY [facility] Administration Multi-Ingredient Ointment 1 applic 06/13/18 22:00 07/07/18 10:21 Zinc Oxide TP 1 applic BID [facility] Administration Ranitidine HCl 150 mg 07/06/18 10:00 07/07/18 10:20 Zantac - PO 150 mg BID [facility] Administration Sodium Chloride 1 gm 07/02/18 16:50 07/07/18 10:20 Sodium Chloride Tablet - PO 1 gm BID [facility]EF Administration Zinc Sulfate 220 mg 06/21/18 10:00 07/07/18 10:20 Orazinc - PO 220 mg DAILY [facility] Administration ASSESSMENT/PLAN: 72 y/o M w/ PMH PD, CVA, HTN, HLD, IDDM, osteomyelitis, anemia, COPD, CAD, 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 #neurologic -likely anoxic brain injury -GCS 4 -continue life support measures #pulmonary -aspiration noted during intubation -titrate vent for O2 sat > 90% -acid-base status improved on repeat ABG #cardiac -septic shock, titrate levophed to maintain MAP > 65 -avoid AV chris blocking agents -paroxysmal afib #renal -tolerated dialysis with improved BMP -volume status improved -albumin 25g x 2, first dose w/ lasix 80 IV -HD tomorrow -cont nepro feeds -cont NaCl 1g BID -trend CMP #ID -sepsis 2/2 UTI and chronic ulcer infection, now in septic shock on pressors -yeast on sputum Cx -multiple antimicrobial agents recommended by ID -daptomycin given yesterday -HCP alternately allowing and refusing various antimicrobials #GI -rising INR, total and direct bilirubin, alk phos -declining transaminases; likely worsening liver status with exhaustion of liver enzymes -worsening jaundice on clinical evaluation -ammonia wnl, neurologic issues therefore likely 2/2 anoxic injury -nepro feeds -trend LFTs, coags -episode of diarrhea overnight, C diff studies ordered, bacid -FOBT pending #heme-onc -AM Hb 7 -Day 2 procrit 20k, no evidence of benefit in non-trauma critically ill patients -PO vitamin K -stable thrombocytopenia -widely metastatic disease, Ca 19-9 14k therefore likely pancreatic Ca, prognosis grave -GOC initiated with HCP -prognosis explained to HCP in detail, all questions asked and answered, continues to request all aggressive measures -HCP opposes blood products in light of hindu views but agrees to albumin ( a blood product) -FOBT pending -sacral decub may be source of blood loss #integumentary -chronic infected stage IV decub ulcer now w/ bloody drainage and new tunneling -wound care consulted (Dr. Oliva) #FEN -no IVF -trend CMP -nepro feeds #PPx -DVT: SCDs -GI: Zantac #dispo -monitor in ICU -full code Visit type - Emergency Visit Emergency Visit: No - New Patient This patient is new to me today: No - Critical Care Critical Care patient: Yes Total Critical Care Time (in minutes): 40 Critical Care Statement: The care of this patient involved high complexity decision making to prevent further life threatening deterioration of the patient 's condition and/or to evaluate & treat vital organ system(s) failure or risk of failure.
--- NOTE | 2018-07-07 14:37 | PN ---
Progress Note, Physician History of Present Illness: continues to be lethargic wbc has increased patient high prone to infection - Current Medication List Current Medications: Active Medications Acetaminophen (Ofirmev Injection -) 1,000 mg IVPB Q6H PRN PRN Reason: FEVER Albumin Human (Albumin Human 25%) 25 gm IVPB Q6H [facility] Stop: 07/07/18 17:16 Albumin Human (Albumin Human 25%) 12.5 gm IVPB Q30M [facility]EF Ascorbic Acid (Vitamin C -) 500 mg PO BID [facility] Last Admin: 07/07/18 10:20 Dose: 500 mg Doxycycline Hyclate (Vibramycin -) 100 mg PO BID@1000,1800 [facility] Last Admin: 07/07/18 10:20 Dose: 100 mg Epoetin Darrell (Procrit -) 20,000 unit SQ DAILY [facility] Stop: 07/10/18 10:01 Last Admin: 07/07/18 11:31 Dose: 20,000 unit Epoetin Darrell (Epogen -) 10,000 unit IVPUSH ONCE ONE Stop: 07/08/18 12:54 Folic Acid (Folic Acid -) 1 mg PO DAILY [facility] Last Admin: 07/07/18 10:20 Dose: 1 mg IV Flush (Picc Line Flush) 8 ml IVPUSH PRN PRN PRN Reason: Protocol Propofol (Diprivan -) 1,000,000 mcg in 100 mls @ 1.902 mls/hr IVPB TITR [facility]; Protocol Last Admin: 07/04/18 09:27 Dose: 20 mcg/kg/min, 7.608 mls/hr Norepinephrine Bitartrate 8, (000 mcg/ Sodium Chloride) 250 mls @ 9.37 mls/hr IV TITR [facility]; Protocol Last Admin: 07/07/18 11:32 Dose: Not Given Daptomycin 420 mg/ Sodium (Chloride) 50 mls @ 50 mls/hr IVPB DAILY [facility]; Protocol Last Admin: 07/07/18 10:15 Dose: Not Given Sodium Chloride (Normal Saline -) 250 mls @ 3,000 mls/hr IV PRN PRN PRN Reason: Hypotension during Dialysis Stop: 07/08/18 12:53 Insulin Aspart (Novolog Vial Sliding Scale -) 1 vial SQ TIDAC [facility]; Protocol Last Admin: 07/07/18 10:52 Dose: 2 units Lactobacillus Acidophilus (Bacid -) 1 tab PO DAILY [facility] Last Admin: 07/07/18 12:02 Dose: 1 tab Multi-Ingredient Ointment (Zinc Oxide) 1 applic TP BID [facility] Last Admin: 07/07/18 10:21 Dose: 1 applic Ranitidine HCl (Zantac -) 150 mg PO BID [facility] Last Admin: 07/07/18 10:20 Dose: 150 mg Sodium Chloride (Sodium Chloride Tablet -) 1 gm PO BID [facility] Last Admin: 07/07/18 10:20 Dose: 1 gm Zinc Sulfate (Orazinc -) 220 mg PO DAILY [facility] Last Admin: 07/07/18 10:20 Dose: 220 mg - Objective Vital Signs: Vital Signs Temperature 99.5 F 07/07/18 10:00 Pulse Rate 103 H 07/07/18 12:00 Respiratory Rate 30 H 07/07/18 13:40 Blood Pressure 99/47 L 07/07/18 12:00 O2 Sat by Pulse Oximetry (%) 100 07/07/18 08:37 Constitutional: Yes: Other Cardiovascular: Yes: S1, S2 Respiratory: Yes: Intubated, Mechanically Ventilated Gastrointestinal: Yes: Normal Bowel Sounds, Soft, Other (peg tube in place) Musculoskeletal: Yes: WNL Extremities: Yes: Other Neurological: Yes: Other Psychiatric: Yes: Other Labs: CBC, BMP 07/07/18 05:30 07/07/18 05:30 INR, PTT INR 1.74 (0.83-1.09) H 07/07/18 05:30 Fibrinogen 152.0 mg/dL (238-498) L D 07/07/18 05:30 Assessment/Plan patient with multiple medical problems coming in with sepsis uti and bacteremia with elevated liver enzymes and fever nimisha gm negative bacteremia wound infection dm sepsis uti 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 (3) Abnormal liver enzymes Code(s): R74.8 - ABNORMAL LEVELS OF OTHER SERUM ENZYMES (4) Sacral decubitus ulcer, stage IV Code(s): L89.154 - PRESSURE ULCER OF SACRAL REGION, STAGE 4 (5) Sepsis Code(s): A41.9 - SEPSIS, UNSPECIFIED ORGANISM Qualifiers: Sepsis type: sepsis due to unspecified organism Qualified Code(s): A41.9 - Sepsis, unspecified organism (6) Anemia Code(s): D64.9 - ANEMIA, UNSPECIFIED (7) Bacteremia Code(s): R78.81 - BACTEREMIA (8) Fever Code(s): R50.9 - FEVER, UNSPECIFIED Qualifiers: Fever type: unspecified Qualified Code(s): R50.9 - Fever, unspecified (9) Basilic vein thrombosis Code(s): I82.619 - ACUTE EMBOLISM AND THROMBOSIS OF SUPERFIC VN UNSP UP EXTREM plan continue doxy wbc is increasing will see how wbc is tomorrow patient still continues to do poorly patient having dirrhoea continues to do poorly rest as per icu if wbc increased then will start abx cc 35 min
[2018-07-07] MEDS: ALBUMIN HUMAN 25% 12.5 GM/50 ML VIAL IVPB SCH ×2 (15:02→17:19)
--- NOTE | 2018-07-07 15:11 | PN ---
Physical Exam: SUBJECTIVE: Patient seen and examined at bedside. Patients remains intubated. Currently off sedation. Minimal response to stimuli. OBJECTIVE: Vital Signs Period Temp Pulse Resp BP Sys/Prado Pulse Ox Last 24 Hr 97.7 F-99.5 F 61-120 16-35 77-127/44-65 100-100 GENERAL: off sedation, opens eyes to painfull sternal rub HEAD: NC/AT EYES: pupils dilated but responsive, +scleral icterus ARS, NOSE, THROAT: Moist mucous membranes NECK: supple, trachea midline LUNGS: diffusely coarse breath sounds HEART: tachycardic no m/r/g ABDOMEN: hypoactive bowel sounds, soft, PEG in place MUSCULOSKELETAL: No bony deformities EXTREMITIES: 1+ pulses, warm, well-perfused. weeping edema throughout NEUROLOGICAL: eyes open to pain, intubated, minimal motor response to pain SKIN: Chronic sacral decub ulcer stage 4 now with bleeding drainage and new tunneling; jaundice throughout Laboratory Results - last 24 hr 07/06/18 07/06/18 07/07/18 16:18 20:52 05:17 WBC RBC Hgb Hct MCV MCH MCHC RDW Plt Count MPV Absolute Neuts (auto) Neutrophils % Lymphocytes % Monocytes % Eosinophils % Basophils % Nucleated RBC % PT with INR INR PTT (Actin FS) Fibrinogen Puncture Site ABG pH ABG pCO2 at Pt Temp ABG pO2 at Pt Temp ABG HCO3 ABG O2 Sat (Measured) ABG O2 Content ABG Base Excess Aly Test O2 Delivery Device Oxygen Flow Rate Vent Mode Vent Rate Mechanical Rate PEEP Pressure Support Vent Sodium Potassium Chloride Carbon Dioxide Anion Gap BUN Creatinine Creat Clearance w eGFR POC Glucometer [phone] 131.68346 Random Glucose Calcium Phosphorus Magnesium Total Bilirubin Direct Bilirubin AST ALT Alkaline Phosphatase Total Protein Albumin Stool Occult Blood 07/07/18 07/07/18 07/07/18 05:30 05:30 05:30 WBC 17.0 H RBC 2.72 L Hgb 7.0 L Hct 23.2 L MCV 85.0 MCH 25.9 MCHC 30.4 L RDW 23.5 H Plt Count 80 L MPV 8.9 Absolute Neuts (auto) 14.7 H Neutrophils % 86.5 H Lymphocytes % 7.9 L D Monocytes % 4.5 Eosinophils % 1.0 Basophils % 0.1 Nucleated RBC % 1 H PT with INR 20.60 H INR 1.74 H PTT (Actin FS) 49.1 H Fibrinogen 152.0 L D Puncture Site ABG pH ABG pCO2 at Pt Temp ABG pO2 at Pt Temp ABG HCO3 ABG O2 Sat (Measured) ABG O2 Content ABG Base Excess Aly Test O2 Delivery Device Oxygen Flow Rate Vent Mode Vent Rate Mechanical Rate PEEP Pressure Support Vent Sodium Potassium Chloride Carbon Dioxide Anion Gap BUN Creatinine Creat Clearance w eGFR POC Glucometer Random Glucose Calcium Phosphorus Magnesium Total Bilirubin Direct Bilirubin AST ALT Alkaline Phosphatase Total Protein Albumin Stool Occult Blood 07/07/18 07/07/18 07/07/18 05:30 06:00 12:15 WBC RBC Hgb Hct MCV MCH MCHC RDW Plt Count MPV Absolute Neuts (auto) Neutrophils % Lymphocytes % Monocytes % Eosinophils % Basophils % Nucleated RBC % PT with INR INR PTT (Actin FS) Fibrinogen Puncture Site Right radial ABG pH 7.30 L ABG pCO2 at Pt Temp 29.1 L ABG pO2 at Pt Temp 57.9 L D ABG HCO3 13.7 L* ABG O2 Sat (Measured) 87.4 L ABG O2 Content 8.3 L* ABG Base Excess -11.4 L* Aly Test Positive O2 Delivery Device Mech vent Oxygen Flow Rate 40% Vent Mode A/c Vent Rate 12 Mechanical Rate Yes PEEP 5.0 Pressure Support Vent 400 Sodium 133 L Potassium 3.6 Chloride 102 Carbon Dioxide 17 L Anion Gap 14 BUN 70 H Creatinine 1.7 H Creat Clearance w eGFR 39.60 POC Glucometer Random Glucose 105 Calcium 8.0 L Phosphorus 3.1 Magnesium 2.0 Total Bilirubin 5.1 H Direct Bilirubin 4.3 H AST 92 H ALT 16 Alkaline Phosphatase 749 H Total Protein 5.8 L Albumin 1.8 L Stool Occult Blood Cancelled Active Medications Generic Name Dose Route Start Last Admin Trade Name Freq PRN Reason Stop Dose Admin Acetaminophen 1,000 mg 07/02/18 04:52 Ofirmev Injection - IVPB Q6H PRN FEVER Albumin Human 25 gm 07/07/18 11:15 07/07/18 15:02 Albumin Human 25% IVPB 07/07/18 17:16 25 gm Q6H JEF Administration Albumin Human 12.5 gm 07/08/18 13:00 Albumin Human 25% IVPB Q30M JEF Ascorbic Acid 500 mg 06/13/18 22:00 07/07/18 10:20 Vitamin C - PO 500 mg BID JEF Administration Doxycycline Hyclate 100 mg 06/18/18 18:00 07/07/18 10:20 Vibramycin - PO 100 mg BID@1000,1800 JEF Administration Epoetin Darrell 20,000 unit 07/07/18 10:00 07/07/18 11:31 Procrit - SQ 07/10/18 10:01 20,000 unit DAILY JEF Administration Epoetin Darrell 10,000 unit 07/08/18 12:53 Epogen - IVPUSH 07/08/18 12:54 ONCE ONE Folic Acid 1 mg 06/15/18 10:00 07/07/18 10:20 Folic Acid - PO 1 mg DAILY JEF Administration IV Flush 8 ml 06/21/18 09:17 Picc Line Flush IVPUSH PRN PRN Protocol Propofol 1,000,000 mcg in 100 mls @ 1.902 mls/hr 07/03/18 22:00 07/04/18 09: 27 Diprivan - IVPB 20 mcg/kg/min TITR JEF 7.608 mls/hr Administration Protocol 5 MCG/KG/MIN Norepinephrine Bitartrate 8, 250 mls @ 9.37 mls/hr 07/04/18 11:08 07/07/18 11 :32 000 mcg/ Sodium Chloride IV Not Given TITR JEF Protocol 5 MCG/MIN Daptomycin 420 mg/ Sodium 50 mls @ 50 mls/hr 07/04/18 18:08 07/07/18 10:15 Chloride IVPB Not Given DAILY JEF Protocol Sodium Chloride 250 mls @ 3,000 mls/hr 07/07/18 12:53 Normal Saline - IV 07/08/18 12:53 PRN PRN Hypotension during Dialysis Insulin Aspart 1 vial 07/03/18 07:00 07/07/18 10:52 Novolog Vial Sliding Scale - SQ 2 units TIDAC JEF Administration Protocol Lactobacillus Acidophilus 1 tab 07/07/18 11:15 07/07/18 12:02 Bacid - PO 1 tab DAILY JEF Administration Multi-Ingredient Ointment 1 applic 06/13/18 22:00 07/07/18 10:21 Zinc Oxide TP 1 applic BID JEF Administration Ranitidine HCl 150 mg 07/06/18 10:00 07/07/18 10:20 Zantac - PO 150 mg BID JEF Administration Sodium Chloride 1 gm 07/02/18 16:50 07/07/18 10:20 Sodium Chloride Tablet - PO 1 gm BID JEF Administration Zinc Sulfate 220 mg 06/21/18 10:00 07/07/18 10:20 Orazinc - PO 220 mg DAILY JEF Administration ASSESSMENT/PLAN: 72 y/o M w/ PMH PD, CVA, HTN, HLD, IDDM, osteomyelitis, anemia, COPD, CAD, 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 Problem List - Problems (1) Anemia Assessment/Plan: Anemia- low Fe++, Low TIBC, elevated ferritin compatible with chronic disease * Procrit has been given * PO vitamin K * Platelets have remained stable * Patient proxy refuses transfusion. (2) Liver lesion Assessment/Plan: * CEA-->707,CA-19.9---> 14,400 * These values are virtually diagnostic of malignancy most likely pancreatic ca. with liver mets. * HCP proxy has been advised against biopsy ongoing discussion about GOC. Visit type - Emergency Visit Emergency Visit: Yes ED Registration Date: 06/12/18 Care time: The patient presented to the Emergency Department on the above date and was hospitalized for further evaluation of their emergent condition. - New Patient This patient is new to me today: No - Critical Care Critical Care patient: Yes Total Critical Care Time (in minutes): 45 Critical Care Statement: The care of this patient involved high complexity decision making to prevent further life threatening deterioration of the patient 's condition and/or to evaluate & treat vital organ system(s) failure or risk of failure.
--- NOTE | 2018-07-07 15:35 | PN ---
Progress Note (short form) - Note Progress Note: Vascular Surgery: 72 yo male who a medical, CVA with right sided weakness, COPD, HTN, osteomyelitis, Stage IV decubitus. He presented to the ER for evaluation in mid May because of concerns from his HCP proxy regarding fevers, lack of appetite and sacral ulcer. He has a known eh four ulcer and was being treated and seen in the wound clinic at [facility] for this wound. Currently, he is intubated, on pressors and recveiving HD via a left IJ Shliey. His is dropping his H&H and there is concern that it may be from his sacral ulcer. His prognosis is guarded, there is a question of metastatic pancreatic cancer and chronic anemia. Due to samaritan beliefs he doesn't accept blood products. He is currently on procrit and vitamin K to correct any coagulopathies. Vital Signs Period Temp Pulse Resp BP Sys/Prado Pulse Ox Last 24 Hr 97.7 F-99.5 F 61-120 16-35 77-127/44-65 100-100 GEN: Intubated Back: Sacral region with 2x2 cm opening and undermining of skin edges approximately [id number]. Bone exposed and palpable. NO gross bloody discharge from wound. Edges with rim of soft eschar and granulation tissue and is friable. Optifoam in place. B/l heels: +DP pulses b/l. Left heel intact. RIght 1x1cm eschar with bony prominence palpated under the skin. Back: No ulcers noted CBC, BMP 07/07/18 05:30 07/07/18 05:30 A/p: 72 yo male with guarded prognosis Sacral wound with no evidence of gross bleeding. Skin edges with pink granulation tissue which is friable. No surgical intervention is needed, wound orders written to pack the wound(undermined edges) and apply santyl to the eschar edges. Continue protective measures to off load pressure areas/frequent turns, optifoam/alleyven D/w Dr. Oliva
[2018-07-08] MEDS ORDERED: NOREPINEPHRINE BITARTRATE 4 MG/4 ML ML IV ONE ×3 (06:01→23:44)
[2018-07-08 06:23] LABS: ALLENS TEST POSITIVE; ARTERIAL BLD GAS O2 SATURATION 96.4 % (90-98.9); ARTERIAL BLOOD GAS BASE EXCESS -14.2 meq/l (-2-2); ARTERIAL BLOOD GAS PO2 93.6 mmHg (70-100)
[2018-07-08 06:24] LABS: ARTERIAL BLOOD GAS PCO2 30.2 mmHg (35-45); ARTERIAL BLOOD GAS pH 7.22 (7.35-7.45)
[2018-07-08] MEDS ORDERED: SODIUM CHLORIDE 250 ML IV PRN (06:29)
[2018-07-08] MEDS ORDERED: EPOETIN ALFA 10,000 UNIT/1 ML VIAL IVPUSH ONE (06:30)
[2018-07-08] MEDS: INSULIN SLIDING SCALE (NOVOLOG) 1 VIAL SQ SCH ×3 (06:48→17:14)
[2018-07-08 07:18] LABS: ALBUMIN 1.7 g/dl (3.4-5.0); ALK PHOS 938 U/L (45-117); ANION GAP 17 MMOL/L (8-16); BILIRUBIN,TOTAL 5.3 mg/dL (0.2-1); BLOOD UREA NITROGEN 78 mg/dL (7-18); CALCIUM 8.2 mg/dL (8.5-10.1); CHLORIDE 104 mmol/L (98-107); CO2 14 mmol/L (21-32); CREATININE 2.2 mg/dL (0.55-1.3); GLUCOSE,RANDOM 159 mg/dL (74-106); PHOSPHOROUS 3.6 mg/dL (2.5-4.9); POTASSIUM 3.8 mmol/L (3.5-5.1); SGOT/AST 76 U/L (15-37); SGPT/ALT 15 U/L (13-61); SODIUM 135 mmol/L (136-145); TOT PROT 5.8 g/dl (6.4-8.2)
[2018-07-08 07:20] LABS: BASO % 0.3 % (0-2.0); EOS % 0.3 % (0-4.5); HEMATOCRIT 23.4 % (35.4-49); LYMPH % 7.8 % (8-40); MCH 25.3 pg (25.7-33.7); MCHC 29.3 g/dl (32.0-35.9); MEAN CELL VOLUME 86.6 fl (80-96); MEAN PLT VOLUME 8.7 fl (7.5-11.1); MONO % 4.5 % (3.8-10.2); NEUT % 87.1 % (42.8-82.8); PLATELET COUNT 57 K/MM3 (134-434); RDW 23.6 % (11.9-15.9); WHITE BLOOD COUNT 24.7 K/mm3 (4.0-10.0)
[2018-07-08 07:42] LABS: HEMOGLOBIN 6.8 GM/dL (11.7-16.9)
[2018-07-08 08:06] LABS: BILIRUBIN,DIRECT 4.6 mg/dL (0.0-0.2)
[2018-07-08 08:23] LABS: INR 1.63 (0.83-1.09); PROTHROMBIN TIME (PATIENT) 19.3 SEC (9.7-13.0)
[2018-07-08] MEDS ORDERED: SODIUM BICARBONATE 8.4% 50 MEQ/50 ML DISP.SYRIN IVPUSH ONE (08:45)
--- NOTE | 2018-07-08 09:01 | PN ---
Physical Exam: SUBJECTIVE: Patient seen and examined. Events noted. OBJECTIVE: Vital Signs Period Temp Pulse Resp BP Sys/Prado Pulse Ox Last 24 Hr 97.2 F-99.5 F 81-109 5-35 99-130/45-63 98-98 Laboratory Results - last 24 hr 07/07/18 07/07/18 07/07/18 12:15 16:37 18:00 WBC RBC Hgb Hct MCV MCH MCHC RDW Plt Count MPV Absolute Neuts (auto) Neutrophils % Lymphocytes % Monocytes % Eosinophils % Basophils % Nucleated RBC % PT with INR INR PTT (Actin FS) Fibrinogen Puncture Site ABG pH ABG pCO2 at Pt Temp ABG pO2 at Pt Temp ABG HCO3 ABG O2 Sat (Measured) ABG O2 Content ABG Base Excess Aly Test O2 Delivery Device Oxygen Flow Rate Vent Mode Vent Rate Mechanical Rate PEEP Pressure Support Vent Sodium Potassium Chloride Carbon Dioxide Anion Gap BUN Creatinine Creat Clearance w eGFR POC Glucometer [phone] Random Glucose Calcium Phosphorus Magnesium Total Bilirubin Direct Bilirubin AST ALT Alkaline Phosphatase Total Protein Albumin Stool Occult Blood Cancelled Positive 07/07/18 07/08/18 07/08/18 21:18 05:28 05:30 WBC 24.7 H RBC 2.70 L Hgb 6.8 L* Hct 23.4 L MCV 86.6 MCH 25.3 L MCHC 29.3 L RDW 23.6 H Plt Count 57 L D MPV 8.7 Absolute Neuts (auto) 21.5 H Neutrophils % 87.1 H Lymphocytes % 7.8 L Monocytes % 4.5 Eosinophils % 0.3 Basophils % 0.3 Nucleated RBC % 1 H PT with INR INR PTT (Actin FS) Fibrinogen Puncture Site ABG pH ABG pCO2 at Pt Temp ABG pO2 at Pt Temp ABG HCO3 ABG O2 Sat (Measured) ABG O2 Content ABG Base Excess Aly Test O2 Delivery Device Oxygen Flow Rate Vent Mode Vent Rate Mechanical Rate PEEP Pressure Support Vent Sodium Potassium Chloride Carbon Dioxide Anion Gap BUN Creatinine Creat Clearance w eGFR POC Glucometer 191.52984 190.41515 Random Glucose Calcium Phosphorus Magnesium Total Bilirubin Direct Bilirubin AST ALT Alkaline Phosphatase Total Protein Albumin Stool Occult Blood 07/08/18 07/08/18 07/08/18 05:30 05:30 05:30 WBC RBC Hgb Hct MCV MCH MCHC RDW Plt Count MPV Absolute Neuts (auto) Neutrophils % Lymphocytes % Monocytes % Eosinophils % Basophils % Nucleated RBC % PT with INR 19.30 H INR 1.63 H PTT (Actin FS) 49.0 H Fibrinogen 173.0 L Puncture Site ABG pH ABG pCO2 at Pt Temp ABG pO2 at Pt Temp ABG HCO3 ABG O2 Sat (Measured) ABG O2 Content ABG Base Excess Aly Test O2 Delivery Device Oxygen Flow Rate Vent Mode Vent Rate Mechanical Rate PEEP Pressure Support Vent Sodium 135 L Potassium 3.8 Chloride 104 Carbon Dioxide 14 L Anion Gap 17 H BUN 78 H Creatinine 2.2 H Creat Clearance w eGFR 29.41 POC Glucometer Random Glucose 159 H Calcium 8.2 L Phosphorus 3.6 Magnesium 2.0 Total Bilirubin 5.3 H Direct Bilirubin 4.6 H AST 76 H ALT 15 Alkaline Phosphatase 938 H Total Protein 5.8 L Albumin 1.7 L Stool Occult Blood 07/08/18 06:15 WBC RBC Hgb Hct MCV MCH MCHC RDW Plt Count MPV Absolute Neuts (auto) Neutrophils % Lymphocytes % Monocytes % Eosinophils % Basophils % Nucleated RBC % PT with INR INR PTT (Actin FS) Fibrinogen Puncture Site Right radial ABG pH 7.22 L* ABG pCO2 at Pt Temp 30.2 L ABG pO2 at Pt Temp 93.6 D ABG HCO3 12.0 L* ABG O2 Sat (Measured) 96.4 ABG O2 Content 9.4 L* ABG Base Excess -14.2 L* Aly Test Positive O2 Delivery Device Mech vent Oxygen Flow Rate 35% Vent Mode A/c Vent Rate 12 Mechanical Rate Yes PEEP 5.0 Pressure Support Vent 400 Sodium Potassium Chloride Carbon Dioxide Anion Gap BUN Creatinine Creat Clearance w eGFR POC Glucometer Random Glucose Calcium Phosphorus Magnesium Total Bilirubin Direct Bilirubin AST ALT Alkaline Phosphatase Total Protein Albumin Stool Occult Blood Active Medications Generic Name Dose Route Start Last Admin Trade Name Freq PRN Reason Stop Dose Admin Acetaminophen 1,000 mg 07/02/18 04:52 Ofirmev Injection - IVPB Q6H PRN FEVER Ascorbic Acid 500 mg 06/13/18 22:00 07/07/18 21:21 Vitamin C - PO 500 mg BID JEF Administration Collagenase 1 applic 07/08/18 10:00 Santyl - TP DAILY [facility] Protocol Doxycycline Hyclate 100 mg 06/18/18 18:00 07/07/18 17:20 Vibramycin - PO 100 mg BID@1000,1800 JEF Administration Epoetin Darrell 20,000 unit 07/07/18 10:00 07/07/18 11:31 Procrit - SQ 07/10/18 10:01 20,000 unit DAILY JEF Administration Folic Acid 1 mg 06/15/18 10:00 07/07/18 10:20 Folic Acid - PO 1 mg DAILY JEF Administration IV Flush 8 ml 06/21/18 09:17 Picc Line Flush IVPUSH PRN PRN Protocol Propofol 1,000,000 mcg in 100 mls @ 1.902 mls/hr 07/03/18 22:00 07/04/18 09: 27 Diprivan - IVPB 20 mcg/kg/min TITR JEF 7.608 mls/hr Administration Protocol 5 MCG/KG/MIN Norepinephrine Bitartrate 8, 250 mls @ 9.37 mls/hr 07/04/18 11:08 07/07/18 19 :09 000 mcg/ Sodium Chloride IV 10 mcg/min TITR JEF 18.75 mls/hr Administration Protocol 5 MCG/MIN Insulin Aspart 1 vial 07/03/18 07:00 07/08/18 06:48 Novolog Vial Sliding Scale - SQ 2 units TIDAC JEF Administration Protocol Lactobacillus Acidophilus 1 tab 07/07/18 11:15 07/07/18 12:02 Bacid - PO 1 tab DAILY JEF Administration Multi-Ingredient Ointment 1 applic 06/13/18 22:00 07/07/18 21:21 Zinc Oxide TP 1 applic BID JEF Administration Ranitidine HCl 150 mg 07/06/18 10:00 07/07/18 21:21 Zantac - PO 150 mg BID JEF Administration Sodium Chloride 1 gm 07/02/18 16:50 07/07/18 21:22 Sodium Chloride Tablet - PO 1 gm BID JEF Administration Zinc Sulfate 220 mg 06/21/18 10:00 07/07/18 10:20 Orazinc - PO 220 mg DAILY JEF Administration ASSESSMENT/PLAN: Problem List - Problems (1) Anemia Assessment/Plan: Anemia- low Fe++, Low TIBC, elevated ferritin compatible with chronic disease * Procrit has been given * PO vitamin K * Platelets have remained stable * Patient proxy refuses transfusion. (2) Liver lesion Assessment/Plan: * CEA-->707,CA-19.9---> 14,400 * These values are virtually diagnostic of malignancy most likely pancreatic ca. with liver mets. * HCP proxy has been advised against biopsy ongoing discussion about GOC. Visit type - Emergency Visit Emergency Visit: Yes ED Registration Date: 06/12/18 Care time: The patient presented to the Emergency Department on the above date and was hospitalized for further evaluation of their emergent condition. - New Patient This patient is new to me today: No - Critical Care Critical Care patient: Yes Total Critical Care Time (in minutes): 36 Critical Care Statement: The care of this patient involved high complexity decision making to prevent further life threatening deterioration of the patient 's condition and/or to evaluate & treat vital organ system(s) failure or risk of failure.
--- NOTE | 2018-07-08 09:16 | PN ---
Physical Exam: SUBJECTIVE: Patient seen and examined at bedside. Intubated, off sedation. OBJECTIVE: Vital Signs Period Temp Pulse Resp BP Sys/Prado Pulse Ox Last 24 Hr 97.2 F-99.5 F 81-109 5-35 99-130/45-63 98-98 GENERAL: off sedation, opens eyes to vigorous sternal rub HEAD: NC/AT EYES: pupils dilated but responsive, +scleral icterus and worsening ARS, NOSE, THROAT: Moist mucous membranes NECK: supple, trachea midline LUNGS: diffusely coarse breath sounds HEART: tachycardic no m/r/g ABDOMEN: hypoactive bowel sounds, soft, PEG in place MUSCULOSKELETAL: No bony deformities EXTREMITIES: 1+ pulses, warm, well-perfused. weeping edema throughout NEUROLOGICAL: GCS 4 (eyes open to pain, intubated, negligible motor response to pain), corneal reflex not assessed but noted to be absent in ICU intake evaluation SKIN: Chronic sacral decub ulcer stage 4 with low volume bloody drainage, tunneling, eschar formation; jaundice throughout and worsening Laboratory Results - last 24 hr 07/07/18 07/07/18 07/07/18 12:15 16:37 18:00 WBC RBC Hgb Hct MCV MCH MCHC RDW Plt Count MPV Absolute Neuts (auto) Neutrophils % Lymphocytes % Monocytes % Eosinophils % Basophils % Nucleated RBC % PT with INR INR PTT (Actin FS) Fibrinogen Puncture Site ABG pH ABG pCO2 at Pt Temp ABG pO2 at Pt Temp ABG HCO3 ABG O2 Sat (Measured) ABG O2 Content ABG Base Excess Aly Test O2 Delivery Device Oxygen Flow Rate Vent Mode Vent Rate Mechanical Rate PEEP Pressure Support Vent Sodium Potassium Chloride Carbon Dioxide Anion Gap BUN Creatinine Creat Clearance w eGFR POC Glucometer 232.61782 Random Glucose Calcium Phosphorus Magnesium Total Bilirubin Direct Bilirubin AST ALT Alkaline Phosphatase Total Protein Albumin Stool Occult Blood Cancelled Positive 07/07/18 07/08/18 07/08/18 21:18 05:28 05:30 WBC 24.7 H RBC 2.70 L Hgb 6.8 L* Hct 23.4 L MCV 86.6 MCH 25.3 L MCHC 29.3 L RDW 23.6 H Plt Count 57 L D MPV 8.7 Absolute Neuts (auto) 21.5 H Neutrophils % 87.1 H Lymphocytes % 7.8 L Monocytes % 4.5 Eosinophils % 0.3 Basophils % 0.3 Nucleated RBC % 1 H PT with INR INR PTT (Actin FS) Fibrinogen Puncture Site ABG pH ABG pCO2 at Pt Temp ABG pO2 at Pt Temp ABG HCO3 ABG O2 Sat (Measured) ABG O2 Content ABG Base Excess Aly Test O2 Delivery Device Oxygen Flow Rate Vent Mode Vent Rate Mechanical Rate PEEP Pressure Support Vent Sodium Potassium Chloride Carbon Dioxide Anion Gap BUN Creatinine Creat Clearance w eGFR POC Glucometer 191.49699 190.07476 Random Glucose Calcium Phosphorus Magnesium Total Bilirubin Direct Bilirubin AST ALT Alkaline Phosphatase Total Protein Albumin Stool Occult Blood 07/08/18 07/08/18 07/08/18 05:30 05:30 05:30 WBC RBC Hgb Hct MCV MCH MCHC RDW Plt Count MPV Absolute Neuts (auto) Neutrophils % Lymphocytes % Monocytes % Eosinophils % Basophils % Nucleated RBC % PT with INR 19.30 H INR 1.63 H PTT (Actin FS) 49.0 H Fibrinogen 173.0 L Puncture Site ABG pH ABG pCO2 at Pt Temp ABG pO2 at Pt Temp ABG HCO3 ABG O2 Sat (Measured) ABG O2 Content ABG Base Excess Aly Test O2 Delivery Device Oxygen Flow Rate Vent Mode Vent Rate Mechanical Rate PEEP Pressure Support Vent Sodium 135 L Potassium 3.8 Chloride 104 Carbon Dioxide 14 L Anion Gap 17 H BUN 78 H Creatinine 2.2 H Creat Clearance w eGFR 29.41 POC Glucometer Random Glucose 159 H Calcium 8.2 L Phosphorus 3.6 Magnesium 2.0 Total Bilirubin 5.3 H Direct Bilirubin 4.6 H AST 76 H ALT 15 Alkaline Phosphatase 938 H Total Protein 5.8 L Albumin 1.7 L Stool Occult Blood 07/08/18 06:15 WBC RBC Hgb Hct MCV MCH MCHC RDW Plt Count MPV Absolute Neuts (auto) Neutrophils % Lymphocytes % Monocytes % Eosinophils % Basophils % Nucleated RBC % PT with INR INR PTT (Actin FS) Fibrinogen Puncture Site Right radial ABG pH 7.22 L* ABG pCO2 at Pt Temp 30.2 L ABG pO2 at Pt Temp 93.6 D ABG HCO3 12.0 L* ABG O2 Sat (Measured) 96.4 ABG O2 Content 9.4 L* ABG Base Excess -14.2 L* Aly Test Positive O2 Delivery Device Mech vent Oxygen Flow Rate 35% Vent Mode A/c Vent Rate 12 Mechanical Rate Yes PEEP 5.0 Pressure Support Vent 400 Sodium Potassium Chloride Carbon Dioxide Anion Gap BUN Creatinine Creat Clearance w eGFR POC Glucometer Random Glucose Calcium Phosphorus Magnesium Total Bilirubin Direct Bilirubin AST ALT Alkaline Phosphatase Total Protein Albumin Stool Occult Blood Active Medications Generic Name Dose Route Start Last Admin Trade Name Denae PRN Reason Stop Dose Admin Acetaminophen 1,000 mg 07/02/18 04:52 Ofirmev Injection - IVPB Q6H PRN FEVER Ascorbic Acid 500 mg 06/13/18 22:00 07/07/18 21:21 Vitamin C - PO 500 mg BID JEF Administration Collagenase 1 applic 07/08/18 10:00 Santyl - TP DAILY JEF Protocol Doxycycline Hyclate 100 mg 06/18/18 18:00 07/07/18 17:20 Vibramycin - PO 100 mg BID@1000,1800 JEF Administration Epoetin Darrell 20,000 unit 07/07/18 10:00 07/07/18 11:31 Procrit - SQ 07/10/18 10:01 20,000 unit DAILY JEF Administration Folic Acid 1 mg 06/15/18 10:00 07/07/18 10:20 Folic Acid - PO 1 mg DAILY JEF Administration IV Flush 8 ml 06/21/18 09:17 Picc Line Flush IVPUSH PRN PRN Protocol Propofol 1,000,000 mcg in 100 mls @ 1.902 mls/hr 07/03/18 22:00 07/04/18 09: 27 Diprivan - IVPB 20 mcg/kg/min TITR JEF 7.608 mls/hr Administration Protocol 5 MCG/KG/MIN Norepinephrine Bitartrate 8, 250 mls @ 9.37 mls/hr 07/04/18 11:08 07/07/18 19 :09 000 mcg/ Sodium Chloride IV 10 mcg/min TITR JEF 18.75 mls/hr Administration Protocol 5 MCG/MIN Insulin Aspart 1 vial 07/03/18 07:00 07/08/18 06:48 Novolog Vial Sliding Scale - SQ 2 units TIDAC JEF Administration Protocol Lactobacillus Acidophilus 1 tab 07/07/18 11:15 07/07/18 12:02 Bacid - PO 1 tab DAILY JEF Administration Multi-Ingredient Ointment 1 applic 06/13/18 22:00 07/07/18 21:21 Zinc Oxide TP 1 applic BID JEF Administration Ranitidine HCl 150 mg 07/06/18 10:00 07/07/18 21:21 Zantac - PO 150 mg BID JEF Administration Sodium Chloride 1 gm 07/02/18 16:50 07/07/18 21:22 Sodium Chloride Tablet - PO 1 gm BID JEF Administration Zinc Sulfate 220 mg 06/21/18 10:00 07/07/18 10:20 Orazinc - PO 220 mg DAILY JEF Administration ASSESSMENT/PLAN: 72 y/o M w/ PMH PD, CVA, HTN, HLD, IDDM, osteomyelitis, anemia, COPD, CAD, 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 #neurologic -likely anoxic brain injury -GCS 4 -continue life support measures #pulmonary -aspiration noted during intubation -titrate vent for O2 sat > 90% -acid-base status worsening on repeat ABG, however pulmonary components stable therefore new metabolic acidosis #cardiac -septic shock, levophed maxed, starting vasopressin, titrate for MAP > 65 -avoid AV chris blocking agents -paroxysmal afib #renal -HD today -albumin 25g q6 x 4 doses -cont nepro feeds -cont NaCl 1g BID -new metabolic acidosis, ph 7.22 ABG, 1 amp bicarb given -trend CMP/ABG #ID -sepsis 2/2 UTI and chronic ulcer infection, now in septic shock on pressors -new WBC elevation 17-->22 -HCP disregarding ID antimicrobial recommendations and choosing selectively -currently only on doxycycline -blood, urine, sputum, fungal, stool cultures + C diff studies #GI -rising INR, total and direct bilirubin, alk phos -declining transaminases; likely worsening liver status with exhaustion of liver enzymes -worsening jaundice on clinical evaluation -ammonia wnl, neurologic issues therefore likely 2/2 anoxic injury -nepro feeds -trend LFTs, coags -episode of diarrhea overnight, C diff studies ordered, bacid -FOBT positive #heme-onc -AM Hb 6.8 -Day 3/5 procrit 20k, no evidence of benefit in non-trauma critically ill patients -all coags elevated, fibrinogen low, DIC imminent -vitamin K PO day 3/5 -thrombocytopenia worsening -widely metastatic disease, Ca 19-9 14k therefore likely pancreatic Ca, prognosis grave -GOC initiated with HCP -prognosis explained to HCP in detail, all questions asked and answered, continues to request all aggressive measures -HCP opposes blood products in light of tenriism views but agrees to albumin ( a blood product) -FOBT positive #integumentary -chronic infected stage IV decub ulcer now w/ bloody drainage and new tunneling -seen by Sx, wound care instructions implemented #FEN -no IVF -trend CMP -nepro feeds #PPx -DVT: SCDs -GI: Zantac #dispo -monitor in ICU -full code Visit type - Emergency Visit Emergency Visit: No - New Patient This patient is new to me today: No - Critical Care Critical Care patient: Yes Total Critical Care Time (in minutes): 40 Critical Care Statement: The care of this patient involved high complexity decision making to prevent further life threatening deterioration of the patient 's condition and/or to evaluate & treat vital organ system(s) failure or risk of failure.
[2018-07-08] MEDS ORDERED: PT OWN MED DRAWER 7, Y5N ONE ×3 (09:45→19:01)
[2018-07-08] MEDS: ALBUMIN HUMAN 25% 12.5 GM/50 ML VIAL IVPB SCH ×3 (09:50→09:52)
[2018-07-08] MEDS ORDERED: VASOPRESSIN 20 UNITS/ML VIAL IV ONE ×3 (10:02→23:43)
[2018-07-08] MEDS: VASOPRESSIN 50 UNITS in SODIUM CHLORIDE 97.5 ML IVPB SCH (10:18)
[2018-07-08 10:54] LABS: ANISOCYTOSIS 2+; MACROCYTOSIS 0; PLATELET ESTIMATE DECREASED; TEAR DROP CELLS 1+
--- NOTE | 2018-07-08 11:02 | PN ---
Progress Note, Physician Chief Complaint: BEDSIDE DIALYSIS TODAY PATIENT OBTUNDED, LETHARGIC - Current Medication List Current Medications: Active Medications Acetaminophen (Ofirmev Injection -) 1,000 mg IVPB Q6H PRN PRN Reason: FEVER Albumin Human (Albumin Human 25%) 25 gm IVPB Q6H [facility] Stop: 07/09/18 06:01 Ascorbic Acid (Vitamin C -) 500 mg PO BID [facility] Last Admin: 07/07/18 21:21 Dose: 500 mg Collagenase (Santyl -) 1 applic TP DAILY [facility]; Protocol Doxycycline Hyclate (Vibramycin -) 100 mg PO BID@1000,1800 [facility] Last Admin: 07/07/18 17:20 Dose: 100 mg Epoetin Darrell (Procrit -) 20,000 unit SQ DAILY [facility] Stop: 07/10/18 10:01 Last Admin: 07/07/18 11:31 Dose: 20,000 unit Folic Acid (Folic Acid -) 1 mg PO DAILY [facility] Last Admin: 07/07/18 10:20 Dose: 1 mg IV Flush (Picc Line Flush) 8 ml IVPUSH PRN PRN PRN Reason: Protocol Propofol (Diprivan -) 1,000,000 mcg in 100 mls @ 1.902 mls/hr IVPB TITR [facility]; Protocol Last Admin: 07/04/18 09:27 Dose: 20 mcg/kg/min, 7.608 mls/hr Norepinephrine Bitartrate 8, (000 mcg/ Sodium Chloride) 250 mls @ 9.37 mls/hr IV TITR [facility]; Protocol Last Admin: 07/07/18 19:09 Dose: 10 mcg/min, 18.75 mls/hr Vasopressin 50 units/ Sodium (Chloride) 100 mls @ 4 mls/hr IVPB ASDIR [facility]; Protocol Last Admin: 07/08/18 10:18 Dose: 2 units/hr, 4 mls/hr Insulin Aspart (Novolog Vial Sliding Scale -) 1 vial SQ TIDAC [facility]; Protocol Last Admin: 07/08/18 06:48 Dose: 2 units Lactobacillus Acidophilus (Bacid -) 1 tab PO DAILY [facility] Last Admin: 07/07/18 12:02 Dose: 1 tab Multi-Ingredient Ointment (Zinc Oxide) 1 applic TP BID [facility] Last Admin: 07/07/18 21:21 Dose: 1 applic Ranitidine HCl (Zantac -) 150 mg PO BID [facility] Last Admin: 07/07/18 21:21 Dose: 150 mg Sodium Chloride (Sodium Chloride Tablet -) 1 gm PO BID [facility] Last Admin: 07/07/18 21:22 Dose: 1 gm Zinc Sulfate (Orazinc -) 220 mg PO DAILY [facility] Last Admin: 07/07/18 10:20 Dose: 220 mg - Objective Vital Signs: Vital Signs Temperature 97.9 F 07/08/18 10:00 Pulse Rate 94 H 07/08/18 10:18 Respiratory Rate 30 H 07/08/18 10:25 Blood Pressure 105/58 L 07/08/18 10:18 O2 Sat by Pulse Oximetry (%) 98 07/08/18 08:24 Constitutional: Yes: Moderate Distress Cardiovascular: Yes: Other Respiratory: Yes: Mechanically Ventilated, Poor Air Entry Gastrointestinal: Yes: Other Genitourinary: Yes: [place] Present Musculoskeletal: Yes: Muscle Weakness Extremities: Yes: Other Edema: Yes Peripheral Pulses WNL: Yes Integumentary: Yes: Pressure Ulcer, Rash, Skin Tear, Venous Stasis Changes Wound/Incision: Yes: Other Neurological: Yes: Pre-Existing Deficit, Weakness ...Motor Strength: LLE, RLE Psychiatric: Yes: Other Labs: CBC, BMP 07/08/18 05:30 07/08/18 05:30 INR, PTT INR 1.63 (0.83-1.09) H 07/08/18 05:30 Fibrinogen 173.0 mg/dL (238-498) L 07/08/18 05:30 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 (3) Abnormal liver enzymes Code(s): R74.8 - ABNORMAL LEVELS OF OTHER SERUM ENZYMES (4) Sacral decubitus ulcer, stage IV Code(s): L89.154 - PRESSURE ULCER OF SACRAL REGION, STAGE 4 (5) Sepsis Code(s): A41.9 - SEPSIS, UNSPECIFIED ORGANISM Qualifiers: Sepsis type: sepsis due to unspecified organism Qualified Code(s): A41.9 - Sepsis, unspecified organism (6) Anemia Code(s): D64.9 - ANEMIA, UNSPECIFIED Qualifiers: Anemia type: unspecified type Qualified Code(s): D64.9 - Anemia, unspecified (7) Bacteremia Code(s): R78.81 - BACTEREMIA (8) Fever Code(s): R50.9 - FEVER, UNSPECIFIED Qualifiers: Fever type: unspecified Qualified Code(s): R50.9 - Fever, unspecified (9) Basilic vein thrombosis Code(s): I82.619 - ACUTE EMBOLISM AND THROMBOSIS OF SUPERFIC VN UNSP UP EXTREM (10) ESRD (end stage renal disease) on dialysis Code(s): N18.6 - END STAGE RENAL DISEASE; Z99.2 - DEPENDENCE ON RENAL DIALYSIS (11) JORDAN (acute kidney injury) Code(s): N17.9 - ACUTE KIDNEY FAILURE, UNSPECIFIED Assessment/Plan INTUBATED ON MECHANICAL VENTILLATION ESRD ON HD POOR OVERALL PROGNOSIS NEEDS PALLIATIVE CARE AND CONFERENCE MEETING WITH HCP I SPENT TIME WITH MULTIPLE ATTEMPTS TO DISCUSS THIS WITH ELHAM HOWEVER SHE DECLINED TO STOP CARE AND MAKE HIM HOSPICE. WE ARE TREATING THE PATIENT WITH FULL CODE STATUS WITH ALL MEDICAL RESOURCES TO KEEP HIM ALIVE PER HCP'S WISHES.
[2018-07-08] MEDS: FOLIC ACID 1 MG TABLET (FP) PO SCH (11:28)
[2018-07-08] MEDS: SODIUM CHLORIDE 1 GM TABLET PO SCH ×2 (11:28→22:02)
[2018-07-08] MEDS: DOXYCYCLINE HYCLATE 100 MG CAPSULE PO SCH ×2 (11:28→17:15)
[2018-07-08] MEDS: ZINC SULFATE 220 MG CAPSULE (FP) PO SCH (11:29)
[2018-07-08] MEDS: ASCORBIC ACID 500 MG TABLET (FP) PO SCH ×2 (11:29→22:01)
[2018-07-08] MEDS: LACTOBACILLUS ACIDOPHILUS 1 TABLET PO SCH (11:29)
[2018-07-08] MEDS: RANITIDINE HCL 150 MG TABLET (FP) PO SCH ×2 (11:29→22:01)
[2018-07-08] MEDS: COLLAGENASE CLOSTRIDIUM HIST. 30 GRAMS TUBE TP SCH (11:30)
[2018-07-08] MEDS: ZINC OXIDE 20% TOPICAL OINTMENT 30 GM TUBE TP SCH ×2 (11:31→22:02)
[2018-07-08] MEDS: NOREPINEPHRINE BITARTRATE IV SCH ×2 (11:31→12:07)
[2018-07-08] MEDS: SODIUM CHLORIDE IV SCH ×2 (11:31→12:07)
--- NOTE | 2018-07-08 11:33 | PN ---
Teaching Attending Note Name of Resident: Vern Alston ATTENDING PHYSICIAN STATEMENT I saw and evaluated the patient. I reviewed the resident's note and discussed the case with the resident. I agree with the resident's findings and plan as documented. SUBJECTIVE: Pt seen and examined in the ICU. Remains intubated, poorly responsive off sedation for 3 days now. On increasing pressor requirements. Currently getting HD. OBJECTIVE: Vital Signs Period Temp Pulse Resp BP Sys/Prado Pulse Ox Last 24 Hr 97.2 F-98.9 F 80-126 5-35 80-140/45-66 98-98 Intake & Output 07/05/18 07/06/18 07/07/18 07/08/18 23:59 23:59 23:59 23:59 Intake Total 2148.0 625.6 1717 816 Output Total 380 140 100 10 Balance 1768.0 485.6 1617 806 Weight 70.052 kg 70.398 kg 70.845 kg 70.335 kg Gen: intubated, unresponsive Heart: tachycardic, irregular Lung: bilateral rhonchi Abd: soft, nontender Ext: + edema CBC, BMP 07/08/18 05:30 07/08/18 05:30 Active Medications Acetaminophen (Ofirmev Injection -) 1,000 mg IVPB Q6H PRN PRN Reason: FEVER Albumin Human (Albumin Human 25%) 25 gm IVPB Q6H [facility] Stop: 07/09/18 06:01 Ascorbic Acid (Vitamin C -) 500 mg PO BID [facility] Last Admin: 07/08/18 11:29 Dose: 500 mg Collagenase (Santyl -) 1 applic TP DAILY [facility]; Protocol Last Admin: 07/08/18 11:30 Dose: 1 applic Doxycycline Hyclate (Vibramycin -) 100 mg PO BID@1000,1800 [facility] Last Admin: 07/08/18 11:28 Dose: 100 mg Epoetin Darrell (Procrit -) 20,000 unit SQ DAILY [facility] Stop: 07/10/18 10:01 Last Admin: 07/07/18 11:31 Dose: 20,000 unit Folic Acid (Folic Acid -) 1 mg PO DAILY [facility] Last Admin: 07/08/18 11:28 Dose: 1 mg IV Flush (Picc Line Flush) 8 ml IVPUSH PRN PRN PRN Reason: Protocol Propofol (Diprivan -) 1,000,000 mcg in 100 mls @ 1.902 mls/hr IVPB TITR [facility]; Protocol Last Admin: 07/04/18 09:27 Dose: 20 mcg/kg/min, 7.608 mls/hr Norepinephrine Bitartrate 8, (000 mcg/ Sodium Chloride) 250 mls @ 9.37 mls/hr IV TITR [facility]; Protocol Last Admin: 07/08/18 11:31 Dose: Not Given Vasopressin 50 units/ Sodium (Chloride) 100 mls @ 4 mls/hr IVPB ASDIR [facility]; Protocol Last Admin: 07/08/18 10:18 Dose: 2 units/hr, 4 mls/hr Insulin Aspart (Novolog Vial Sliding Scale -) 1 vial SQ TIDAC [facility]; Protocol Last Admin: 07/08/18 06:48 Dose: 2 units Lactobacillus Acidophilus (Bacid -) 1 tab PO DAILY [facility] Last Admin: 07/08/18 11:29 Dose: 1 tab Multi-Ingredient Ointment (Zinc Oxide) 1 applic TP BID [facility] Last Admin: 07/08/18 11:31 Dose: 1 applic Phytonadione (Mephyton -) 5 mg PO DAILY [facility] Stop: 07/10/18 10:01 Ranitidine HCl (Zantac -) 150 mg PO BID [facility] Last Admin: 07/08/18 11:29 Dose: 150 mg Sodium Chloride (Sodium Chloride Tablet -) 1 gm PO BID [facility] Last Admin: 07/08/18 11:28 Dose: 1 gm Zinc Sulfate (Orazinc -) 220 mg PO DAILY [facility] Last Admin: 07/08/18 11:29 Dose: 220 mg ASSESSMENT AND PLAN: Acute Hypoxic Respiratory Failure Pneumonia likely Aspiration Septic Shock Acute Kidney Injury Volume Overload Metabolic Acidosis Thrombocytopenia Suspect Metastatic Disease Hyponatremia CAD HTN DM Hyperlipidemia Dementia Anemia Sabianist - continue antibiotics per ID - reculture - HD per renal - albumin - monitor urine output, creatinine - titrate pressors to maintain MAP >65 - continue salt tabs - monitor lytes - minimize sedation to assess mental statuts - enteral feeds - DVT/GI prophylaxis - poor overall prognosis, continue discussions regarding goals of care - continue ICU monitoring critical care time spent in reviewing chart, evaluating patient and formulating plan 35 min
[2018-07-08] MEDS ORDERED: ALBUMIN HUMAN 25% 12.5 GM/50 ML VIAL IVPB SCH (12:00)
[2018-07-08 14:07] VITALS: BMI 25.0
--- NOTE | 2018-07-08 15:53 | PN ---
Progress Note, Physician History of Present Illness: Pt seen and examined at bedside. He remains in the ICU. He tolerated HD. He remains intubated. - Current Medication List Current Medications: Active Medications Acetaminophen (Ofirmev Injection -) 1,000 mg IVPB Q6H PRN PRN Reason: FEVER Albumin Human (Albumin Human 25%) 25 gm IVPB Q6H [facility] Stop: 07/09/18 06:01 Ascorbic Acid (Vitamin C -) 500 mg PO BID [facility] Last Admin: 07/08/18 11:29 Dose: 500 mg Collagenase (Santyl -) 1 applic TP DAILY [facility]; Protocol Last Admin: 07/08/18 11:30 Dose: 1 applic Doxycycline Hyclate (Vibramycin -) 100 mg PO BID@1000,1800 [facility] Last Admin: 07/08/18 11:28 Dose: 100 mg Epoetin Darrell (Procrit -) 20,000 unit SQ DAILY [facility] Stop: 07/10/18 10:01 Last Admin: 07/07/18 11:31 Dose: 20,000 unit Folic Acid (Folic Acid -) 1 mg PO DAILY [facility] Last Admin: 07/08/18 11:28 Dose: 1 mg IV Flush (Picc Line Flush) 8 ml IVPUSH PRN PRN PRN Reason: Protocol Propofol (Diprivan -) 1,000,000 mcg in 100 mls @ 1.902 mls/hr IVPB TITR [facility]; Protocol Last Admin: 07/04/18 09:27 Dose: 20 mcg/kg/min, 7.608 mls/hr Norepinephrine Bitartrate 8, (000 mcg/ Sodium Chloride) 250 mls @ 9.37 mls/hr IV TITR [facility]; Protocol Last Admin: 07/08/18 12:07 Dose: 10 mcg/min, 18.75 mls/hr Vasopressin 50 units/ Sodium (Chloride) 100 mls @ 4 mls/hr IVPB ASDIR [facility]; Protocol Last Admin: 07/08/18 10:18 Dose: 2 units/hr, 4 mls/hr Insulin Aspart (Novolog Vial Sliding Scale -) 1 vial SQ TIDAC [facility]; Protocol Last Admin: 07/08/18 12:08 Dose: 4 units Lactobacillus Acidophilus (Bacid -) 1 tab PO DAILY [facility] Last Admin: 07/08/18 11:29 Dose: 1 tab Multi-Ingredient Ointment (Zinc Oxide) 1 applic TP BID [facility] Last Admin: 07/08/18 11:31 Dose: 1 applic Phytonadione (Mephyton -) 5 mg PO DAILY [facility] Stop: 07/10/18 10:01 Ranitidine HCl (Zantac -) 150 mg PO BID [facility] Last Admin: 07/08/18 11:29 Dose: 150 mg Sodium Chloride (Sodium Chloride Tablet -) 1 gm PO BID [facility] Last Admin: 07/08/18 11:28 Dose: 1 gm Zinc Sulfate (Orazinc -) 220 mg PO DAILY [facility] Last Admin: 07/08/18 11:29 Dose: 220 mg - Objective Vital Signs: Vital Signs Temperature 98.5 F 07/08/18 14:00 Pulse Rate 85 07/08/18 14:00 Respiratory Rate 30 H 07/08/18 15:38 Blood Pressure 142/68 07/08/18 14:00 O2 Sat by Pulse Oximetry (%) 98 07/08/18 08:24 Constitutional: Yes: Calm Eyes: Yes: Conjunctiva Clear Cardiovascular: Yes: S1, S2 Respiratory: Yes: Mechanically Ventilated Gastrointestinal: Yes: Soft Genitourinary: Yes: [place] Present, Oliguria Musculoskeletal: Yes: Muscle Weakness Edema: Yes Edema: LUE: 2+, RUE: 2+, LLE: 2+, RLE: 2+ Neurological: Yes: Lethargy Labs: CBC, BMP 07/08/18 05:30 07/08/18 05:30 INR, PTT INR 1.63 (0.83-1.09) H 07/08/18 05:30 Fibrinogen 173.0 mg/dL (238-498) L 07/08/18 05:30 - ....Imaging Chest X-ray: Report Reviewed Problem List - Problems (1) JORDAN (acute kidney injury) Code(s): N17.9 - ACUTE KIDNEY FAILURE, UNSPECIFIED (2) Hyponatremia Code(s): E87.1 - HYPO-OSMOLALITY AND HYPONATREMIA Assessment/Plan Current Medications Generic Name Dose Route Start Last Admin Trade Name Freq PRN Reason Stop Dose Admin Acetaminophen 1,000 mg 07/02/18 04:52 Ofirmev Injection - IVPB Q6H PRN FEVER Albumin Human 25 gm 07/08/18 12:00 Albumin Human 25% IVPB 07/09/18 06:01 Q6H [facility] Ascorbic Acid 500 mg 06/13/18 22:00 07/08/18 11:29 Vitamin C - PO 500 mg BID [facility] Administration Collagenase 1 applic 07/08/18 10:00 07/08/18 11:30 Santyl - TP 1 applic DAILY [facility] Administration Protocol Doxycycline Hyclate 100 mg 06/18/18 18:00 07/08/18 11:28 Vibramycin - PO 100 mg BID@1000,1800 [facility] Administration Epoetin Darrell 20,000 unit 07/07/18 10:00 07/07/18 11:31 Procrit - SQ 07/10/18 10:01 20,000 unit DAILY [facility] Administration Folic Acid 1 mg 06/15/18 10:00 07/08/18 11:28 Folic Acid - PO 1 mg DAILY [facility] Administration IV Flush 8 ml 06/21/18 09:17 Picc Line Flush IVPUSH PRN PRN Protocol Propofol 1,000,000 mcg in 100 mls @ 1.902 mls/hr 07/03/18 22:00 07/04/18 09: 27 Diprivan - IVPB 20 mcg/kg/min TITR [facility] 7.608 mls/hr Administration Protocol 5 MCG/KG/MIN Norepinephrine Bitartrate 8, 250 mls @ 9.37 mls/hr 07/04/18 11:08 07/08/18 12 :07 000 mcg/ Sodium Chloride IV 10 mcg/min TITR [facility] 18.75 mls/hr Administration Protocol 5 MCG/MIN Vasopressin 50 units/ Sodium 100 mls @ 4 mls/hr 07/08/18 10:15 07/08/18 10:18 Chloride IVPB 2 units/hr ASDIR [facility] 4 mls/hr Administration Protocol 2 UNITS/HR Insulin Aspart 1 vial 07/03/18 07:00 07/08/18 12:08 Novolog Vial Sliding Scale - SQ 4 units TIDAC [facility] Administration Protocol Lactobacillus Acidophilus 1 tab 07/07/18 11:15 07/08/18 11:29 Bacid - PO 1 tab DAILY [facility] Administration Multi-Ingredient Ointment 1 applic 06/13/18 22:00 07/08/18 11:31 Zinc Oxide TP 1 applic BID [facility] Administration Phytonadione 5 mg 07/08/18 11:15 Mephyton - PO 07/10/18 10:01 DAILY [facility] Ranitidine HCl 150 mg 07/06/18 10:00 07/08/18 11:29 Zantac - PO 150 mg BID [facility] Administration Sodium Chloride 1 gm 07/02/18 16:50 07/08/18 11:28 Sodium Chloride Tablet - PO 1 gm BID [facility] Administration Zinc Sulfate 220 mg 06/21/18 10:00 07/08/18 11:29 Orazinc - PO 220 mg DAILY [facility] Administration Impression 1. hyponatremia 2. JORDAN 3. resp failure s/p intubation 4. possible liver mets 5. s/p peg 6. s/p sepsis 7. CAD 8. HTN 9. hyperlipidemia 10. parkinsons 11. DM 12. anemia Plan - HD today, pt tolerated - will evaluate for HD again tomorrow - discussed with ICU team - daily cxr - UF 2.5 liters today - pressors for map of 65 - vent support - will follow - minimize fluid intake - discussed with family at length Dr Coe
[2018-07-08] MEDS ORDERED: HEMOQUE TEST 1 EACH EACH ONE (16:39)
--- NOTE | 2018-07-08 16:47 | PN ---
Progress Note, Physician History of Present Illness: continues to be lethargic wbc has increased patient has dirrhoea - Current Medication List Current Medications: Active Medications Acetaminophen (Ofirmev Injection -) 1,000 mg IVPB Q6H PRN PRN Reason: FEVER Albumin Human (Albumin Human 25%) 25 gm IVPB Q6H [facility] Stop: 07/09/18 06:01 Ascorbic Acid (Vitamin C -) 500 mg PO BID [facility] Last Admin: 07/08/18 11:29 Dose: 500 mg Collagenase (Santyl -) 1 applic TP DAILY [facility]; Protocol Last Admin: 07/08/18 11:30 Dose: 1 applic Doxycycline Hyclate (Vibramycin -) 100 mg PO BID@1000,1800 [facility] Last Admin: 07/08/18 11:28 Dose: 100 mg Epoetin Darrell (Procrit -) 20,000 unit SQ DAILY [facility] Stop: 07/10/18 10:01 Last Admin: 07/07/18 11:31 Dose: 20,000 unit Folic Acid (Folic Acid -) 1 mg PO DAILY [facility] Last Admin: 07/08/18 11:28 Dose: 1 mg IV Flush (Picc Line Flush) 8 ml IVPUSH PRN PRN PRN Reason: Protocol Propofol (Diprivan -) 1,000,000 mcg in 100 mls @ 1.902 mls/hr IVPB TITR [facility]; Protocol Last Admin: 07/04/18 09:27 Dose: 20 mcg/kg/min, 7.608 mls/hr Norepinephrine Bitartrate 8, (000 mcg/ Sodium Chloride) 250 mls @ 9.37 mls/hr IV TITR [facility]; Protocol Last Admin: 07/08/18 12:07 Dose: 10 mcg/min, 18.75 mls/hr Vasopressin 50 units/ Sodium (Chloride) 100 mls @ 4 mls/hr IVPB ASDIR [facility]; Protocol Last Admin: 07/08/18 10:18 Dose: 2 units/hr, 4 mls/hr Metronidazole (Flagyl 500mg Premixed Ivpb -) 500 mg in 100 mls @ 100 mls/hr IVPB Q8H-IV [facility] Insulin Aspart (Novolog Vial Sliding Scale -) 1 vial SQ TIDAC [facility]; Protocol Last Admin: 07/08/18 12:08 Dose: 4 units Lactobacillus Acidophilus (Bacid -) 1 tab PO DAILY [facility] Last Admin: 07/08/18 11:29 Dose: 1 tab Multi-Ingredient Ointment (Zinc Oxide) 1 applic TP BID [facility] Last Admin: 07/08/18 11:31 Dose: 1 applic Phytonadione (Mephyton -) 5 mg PO DAILY [facility] Stop: 07/10/18 10:01 Ranitidine HCl (Zantac -) 150 mg PO BID [facility] Last Admin: 07/08/18 11:29 Dose: 150 mg Sodium Chloride (Sodium Chloride Tablet -) 1 gm PO BID [facility] Last Admin: 07/08/18 11:28 Dose: 1 gm Vancomycin HCl (Vancomycin Oral Solution) 125 mg PO Q6HPO [facility] Zinc Sulfate (Orazinc -) 220 mg PO DAILY [facility] Last Admin: 07/08/18 11:29 Dose: 220 mg - Objective Vital Signs: Vital Signs Temperature 98.5 F 07/08/18 14:00 Pulse Rate 85 07/08/18 14:00 Respiratory Rate 30 H 07/08/18 15:38 Blood Pressure 142/68 07/08/18 14:00 O2 Sat by Pulse Oximetry (%) 98 07/08/18 08:24 Constitutional: Yes: Calm Neck: Yes: Supple Cardiovascular: Yes: Regular Rate and Rhythm Respiratory: Yes: Regular, CTA Bilaterally Gastrointestinal: Yes: Normal Bowel Sounds, Soft, Other (peg tube in place) Musculoskeletal: Yes: WNL Extremities: Yes: Other Wound/Incision: Yes: Other Neurological: Yes: Other Labs: CBC, BMP 07/08/18 05:30 07/08/18 05:30 INR, PTT INR 1.63 (0.83-1.09) H 07/08/18 05:30 Fibrinogen 173.0 mg/dL (238-498) L 07/08/18 05:30 Assessment/Plan patient with multiple medical problems coming in with sepsis uti and bacteremia with elevated liver enzymes and fever nimisha gm negative bacteremia wound infection dm sepsis uti 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 (3) Abnormal liver enzymes Code(s): R74.8 - ABNORMAL LEVELS OF OTHER SERUM ENZYMES (4) Sacral decubitus ulcer, stage IV Code(s): L89.154 - PRESSURE ULCER OF SACRAL REGION, STAGE 4 (5) Sepsis Code(s): A41.9 - SEPSIS, UNSPECIFIED ORGANISM Qualifiers: Sepsis type: sepsis due to unspecified organism Qualified Code(s): A41.9 - Sepsis, unspecified organism (6) Anemia Code(s): D64.9 - ANEMIA, UNSPECIFIED (7) Bacteremia Code(s): R78.81 - BACTEREMIA (8) Fever Code(s): R50.9 - FEVER, UNSPECIFIED Qualifiers: Fever type: unspecified Qualified Code(s): R50.9 - Fever, unspecified (9) Basilic vein thrombosis Code(s): I82.619 - ACUTE EMBOLISM AND THROMBOSIS OF SUPERFIC VN UNSP UP EXTREM plan wound care stool for cdiff if wbc increases will add meropenam and if cdiff negative nutrition rest as per the team please repeat a cx and scan if the wbc continues to increase rest as per icu cc 38 min
[2018-07-08] MEDS: VANCOMYCIN 250 MG/5 ML ORAL SOLUTION PO SCH (19:03)
[2018-07-08] MEDS: PHYTONADIONE 5 MG TABLET PO SCH (19:03)
[2018-07-09] MEDS: VANCOMYCIN 250 MG/5 ML ORAL SOLUTION PO SCH ×4 (01:32→17:30)
[2018-07-09 06:06] LABS: BASO % 0.1 % (0-2.0); EOS % 0.3 % (0-4.5); LYMPH % 10.9 % (8-40); MCH 25.4 pg (25.7-33.7); MCHC 29.2 g/dl (32.0-35.9); MEAN CELL VOLUME 86.8 fl (80-96); MEAN PLT VOLUME 8.5 fl (7.5-11.1); MONO % 4.1 % (3.8-10.2); NEUT % 84.6 % (42.8-82.8); RDW 22.8 % (11.9-15.9); WHITE BLOOD COUNT 19.4 K/mm3 (4.0-10.0)
[2018-07-09 06:19] LABS: PROTHROMBIN TIME (PATIENT) 23.8 SEC (9.7-13.0)
[2018-07-09 06:21] LABS: HEMOGLOBIN 5.6 GM/dL (11.7-16.9)
[2018-07-09 06:22] LABS: HEMATOCRIT 19.1 % (35.4-49); PLATELET COUNT 34 K/MM3 (134-434)
[2018-07-09] MEDS: INSULIN SLIDING SCALE (NOVOLOG) 1 VIAL SQ SCH ×3 (06:58→16:04)
[2018-07-09 07:15] LABS: ALBUMIN 1.9 g/dl (3.4-5.0); ALK PHOS 787 U/L (45-117); ANION GAP 17 MMOL/L (8-16); BILIRUBIN,DIRECT 5.6 mg/dL (0.0-0.2); BILIRUBIN,TOTAL 6.9 mg/dL (0.2-1); BLOOD UREA NITROGEN 65 mg/dL (7-18); CALCIUM 8.2 mg/dL (8.5-10.1); CHLORIDE 105 mmol/L (98-107); CO2 16 mmol/L (21-32); CREATININE 1.9 mg/dL (0.55-1.3); GLUCOSE,RANDOM 123 mg/dL (74-106); MAGNESIUM 1.9 mg/dL (1.8-2.4); PHOSPHOROUS 2.8 mg/dL (2.5-4.9); POTASSIUM 3.1 mmol/L (3.5-5.1); SGOT/AST 80 U/L (15-37); SGPT/ALT 14 U/L (13-61); SODIUM 138 mmol/L (136-145); TOT PROT 5.7 g/dl (6.4-8.2)
[2018-07-09] MEDS ORDERED: SODIUM CHLORIDE 250 ML IV PRN ×2 (08:20→08:22)
[2018-07-09 08:25] LABS: ARTERIAL BLD GAS O2 SATURATION 99.1 % (90-98.9); ARTERIAL BLOOD GAS BASE EXCESS -10.2 meq/l (-2-2); ARTERIAL BLOOD GAS PCO2 29.1 mmHg (35-45); ARTERIAL BLOOD GAS pH 7.32 (7.35-7.45)
[2018-07-09 08:31] LABS: ALLENS TEST POSITIVE
--- NOTE | 2018-07-09 08:33 | PN ---
Progress Note, Physician - Current Medication List Current Medications: Active Medications Acetaminophen (Ofirmev Injection -) 1,000 mg IVPB Q6H PRN PRN Reason: FEVER Albumin Human (Albumin Human 25%) 12.5 gm IVPB Q30M [facility] Ascorbic Acid (Vitamin C -) 500 mg PO BID [facility] Last Admin: 07/08/18 22:01 Dose: 500 mg Collagenase (Santyl -) 1 applic TP DAILY [facility]; Protocol Last Admin: 07/08/18 11:30 Dose: 1 applic Doxycycline Hyclate (Vibramycin -) 100 mg PO BID@1000,1800 [facility] Last Admin: 07/08/18 17:15 Dose: 100 mg Epoetin Darrell (Procrit -) 20,000 unit IVPUSH ONCE ONE Stop: 07/09/18 08:23 Folic Acid (Folic Acid -) 1 mg PO DAILY [facility] Last Admin: 07/08/18 11:28 Dose: 1 mg IV Flush (Picc Line Flush) 8 ml IVPUSH PRN PRN PRN Reason: Protocol Propofol (Diprivan -) 1,000,000 mcg in 100 mls @ 1.902 mls/hr IVPB TITR [facility]; Protocol Last Admin: 07/04/18 09:27 Dose: 20 mcg/kg/min, 7.608 mls/hr Norepinephrine Bitartrate 8, (000 mcg/ Sodium Chloride) 250 mls @ 9.37 mls/hr IV TITR [facility]; Protocol Last Titration: 07/09/18 04:00 Dose: 0 mcg/min, 0 mls/hr Vasopressin 50 units/ Sodium (Chloride) 100 mls @ 4 mls/hr IVPB ASDIR [facility]; Protocol Last Titration: 07/09/18 07:11 Dose: 4 units/hr, 8 mls/hr Metronidazole (Flagyl 500mg Premixed Ivpb -) 500 mg in 100 mls @ 100 mls/hr IVPB Q8H-IV [facility] Last Admin: 07/09/18 01:32 Dose: 100 mls/hr Potassium Chloride (Potassium Chloride 10 Meq Premix Ivpb -) 10 meq in 100 mls @ 100 mls/hr IVPB Q60M [facility] Stop: 07/09/18 10:44 Sodium Chloride (Normal Saline -) 250 mls @ 3,000 mls/hr IV PRN PRN PRN Reason: Hypotension during Dialysis Stop: 07/10/18 08:20 Sodium Chloride (Normal Saline -) 250 mls @ 3,000 mls/hr IV PRN PRN PRN Reason: Hypotension during Dialysis Stop: 07/10/18 08:22 Insulin Aspart (Novolog Vial Sliding Scale -) 1 vial SQ TIDAC [facility]; Protocol Last Admin: 07/09/18 06:58 Dose: Not Given Lactobacillus Acidophilus (Bacid -) 1 tab PO DAILY [facility] Last Admin: 07/08/18 11:29 Dose: 1 tab Multi-Ingredient Ointment (Zinc Oxide) 1 applic TP BID [facility] Last Admin: 07/08/18 22:02 Dose: 1 applic Phytonadione (Mephyton -) 5 mg PO DAILY [facility] Stop: 07/10/18 10:01 Last Admin: 07/08/18 19:03 Dose: 5 mg Ranitidine HCl (Zantac -) 150 mg PO BID [facility] Last Admin: 07/08/18 22:01 Dose: 150 mg Sodium Chloride (Sodium Chloride Tablet -) 1 gm PO BID [facility] Last Admin: 07/08/18 22:02 Dose: 1 gm Vancomycin HCl (Vancomycin Oral Solution) 125 mg PO Q6HPO [facility] Last Admin: 07/09/18 06:58 Dose: Not Given Zinc Sulfate (Orazinc -) 220 mg PO DAILY [facility] Last Admin: 07/08/18 11:29 Dose: 220 mg - Objective Vital Signs: Vital Signs Temperature 97.2 F L 07/09/18 06:00 Pulse Rate 77 07/09/18 06:00 Respiratory Rate 36 H 07/09/18 06:34 Blood Pressure 140/56 L 07/09/18 06:00 O2 Sat by Pulse Oximetry (%) 99 07/08/18 21:26 Cardiovascular: Yes: S1, S2 Respiratory: Yes: Mechanically Ventilated Neurological: Yes: Unresponsive Labs: CBC, BMP 07/09/18 05:30 07/09/18 05:30 INR, PTT INR 2.00 (0.83-1.09) H 07/09/18 05:30 Fibrinogen 123.0 mg/dL (238-498) L D 07/09/18 05:30 Problem List - Problems (1) Acute respiratory failure with hypoxia Code(s): J96.01 - ACUTE RESPIRATORY FAILURE WITH HYPOXIA (2) Metabolic encephalopathy Code(s): G93.41 - METABOLIC ENCEPHALOPATHY (3) 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 (4) Sacral decubitus ulcer Code(s): L89.159 - PRESSURE ULCER OF SACRAL REGION, UNSPECIFIED STAGE (5) Hyponatremia Code(s): E87.1 - HYPO-OSMOLALITY AND HYPONATREMIA (6) Sepsis Code(s): A41.9 - SEPSIS, UNSPECIFIED ORGANISM Qualifiers: Sepsis type: sepsis due to unspecified organism Qualified Code(s): A41.9 - Sepsis, unspecified organism (7) Anemia Code(s): D64.9 - ANEMIA, UNSPECIFIED Qualifiers: Anemia type: unspecified type Qualified Code(s): D64.9 - Anemia, unspecified Assessment/Plan - Problems (1) JORDAN (acute kidney injury) Assessment/Plan: plan for HD per renal cath placed Code(s): N17.9 - ACUTE KIDNEY FAILURE, UNSPECIFIED (2) Sacral decubitus ulcer Assessment/Plan: wound care Code(s): L89.159 - PRESSURE ULCER OF SACRAL REGION, UNSPECIFIED STAGE (3) Anemia Assessment/Plan: refusing blood transfusion- jehovah witness procrit given Code(s): D64.9 - ANEMIA, UNSPECIFIED (4) Abnormal liver enzymes Assessment/Plan: abdominal MRI report- innumerable hepatic lesions,thoracic and lumbar lesion suscipicious for metastatic disease \ Code(s): R74.8 - ABNORMAL LEVELS OF OTHER SERUM ENZYMES (5) Bacteremia Assessment/Plan: Abx per Id Orders 06/18/18 18:00 Doxycycline Hyclate [Vibramycin -] 100 mg PO BID@1000,1800 07/08/18 18:00 Vancomycin Oral Solution 125 mg PO Q6HPO metroNIDAZOLE 500 MG PREMIXED [Flagyl 500Mg Premixed Ivpb -] 500 mg in 100 ml IVPB Q8H-IV [facility] 07/08/18 08:15 Blood - Peripheral Venous Blood Culture - Preliminary NO GROWTH OBTAINED AFTER 24 HOURS, INCUBATION TO CONTINUE FOR 4 DAYS. 07/04/18 15:50 Blood - Peripheral Venous Blood Culture - Preliminary NO GROWTH OBTAINED AFTER 96 HOURS, INCUBATION TO CONTINUE FOR 1 DAYS. 07/04/18 15:15 Blood - Peripheral Venous Blood Culture - Preliminary NO GROWTH OBTAINED AFTER 96 HOURS, INCUBATION TO CONTINUE FOR 1 DAYS. 07/04/18 14:37 Sputum - Endotrachea Suction/Ventilator Gram Stain - Final 07/04/18 14:37 Sputum - Endotrachea Suction/Ventilator Sputum Culture - Final Yeast Like Organism 06/14/18 06:40 Blood - Peripheral Venous Blood Culture - Final NO GROWTH AFTER 5 DAYS INCUBATION 06/14/18 07:00 Blood - Peripheral Venous Blood Culture - Final NO GROWTH AFTER 5 DAYS INCUBATION 06/12/18 17:22 Decubiti Gram Stain - Final 06/12/18 17:22 Decubiti Wound Culture - Final Mr S Aureus Vr Ec Faecalis Proteus Mirabilis 06/12/18 17:22 Blood - Peripheral Venous Blood Culture - Final Escherichia Coli Esbl Stogy Maker 06/12/18 17:10 Blood - Peripheral Venous Blood Culture - Final Escherichia Coli Esbl Stogy Maker 06/12/18 09:20 Urine - Urine - Catheterized Urine Culture - Final Proteus Mirabilis Code(s): R78.81 - BACTEREMIA (6) Hyponatremia Assessment/Plan: renal on board monitor Code(s): E87.1 - HYPO-OSMOLALITY AND HYPONATREMIA (7) Sepsis Assessment/Plan: icu on vent intubated as above Code(s): A41.9 - SEPSIS, UNSPECIFIED ORGANISM Qualifiers: Sepsis type: sepsis due to unspecified organism Qualified Code(s): A41.9 - Sepsis, unspecified organism Prognosis poor
[2018-07-09] MEDS: ALBUMIN HUMAN 25% 12.5 GM/50 ML VIAL IVPB SCH ×4 (09:15→12:30)
[2018-07-09] MEDS ORDERED: EPOETIN ALFA 20,000 UNIT/1 ML VIAL IVPUSH ONE (09:15)
[2018-07-09] MEDS: LACTOBACILLUS ACIDOPHILUS 1 TABLET PO SCH (09:23)
[2018-07-09] MEDS: RANITIDINE HCL 150 MG TABLET (FP) PO SCH ×2 (09:24→21:56)
[2018-07-09] MEDS: FOLIC ACID 1 MG TABLET (FP) PO SCH (09:24)
[2018-07-09] MEDS: ASCORBIC ACID 500 MG TABLET (FP) PO SCH ×2 (09:24→21:56)
[2018-07-09] MEDS: ZINC SULFATE 220 MG CAPSULE (FP) PO SCH (09:24)
[2018-07-09] MEDS: ZINC OXIDE 20% TOPICAL OINTMENT 30 GM TUBE TP SCH ×2 (09:25→21:57)
[2018-07-09] MEDS: COLLAGENASE CLOSTRIDIUM HIST. 30 GRAMS TUBE TP SCH (09:25)
[2018-07-09] MEDS ORDERED: PT OWN MED DRAWER 7, Y5N ONE ×2 (09:29→11:31)
[2018-07-09] MEDS: KCL 10 MEQ IVPB 10 MEQ/100 ML INFUS.BAG IVPB SCH ×3 (09:33→13:34)
[2018-07-09] MEDS: PHYTONADIONE 5 MG TABLET PO SCH (09:36)
[2018-07-09] MEDS: DOXYCYCLINE HYCLATE 100 MG CAPSULE PO SCH ×2 (09:41→17:29)
[2018-07-09 11:02] LABS: ANISOCYTOSIS 3+; MACROCYTOSIS 0; PLATELET ESTIMATE DECREASED; TOXIC GRANULATION 1+
[2018-07-09] MEDS ORDERED: NOREPINEPHRINE BITARTRATE 4 MG/4 ML ML IV ONE (11:17)
[2018-07-09] MEDS ORDERED: VASOPRESSIN 20 UNITS/ML VIAL IV ONE (11:17)
[2018-07-09] MEDS: SODIUM CHLORIDE 1 GM TABLET PO SCH ×2 (11:37→21:56)
[2018-07-09] MEDS: VASOPRESSIN 50 UNITS in SODIUM CHLORIDE 97.5 ML IVPB SCH (11:42)
--- NOTE | 2018-07-09 11:42 | PN ---
Teaching Attending Note Name of Resident: Vern Alston ATTENDING PHYSICIAN STATEMENT I saw and evaluated the patient. I reviewed the resident's note and discussed the case with the resident. I agree with the resident's findings and plan as documented. SUBJECTIVE: Patient seen and examined in the ICU. Remains intubated, poorly responsive off sedation for several days. Increasing jaundice. NE @ 10 mcq and Vasopressin 4 units for hemodynamic support. AC mode of vent. OBJECTIVE: Intake & Output 07/06/18 07/07/18 07/08/18 07/09/18 23:59 23:59 23:59 23:59 Intake Total 625.6 1717 1780.8 955 Output Total 140 100 30 10 Balance 485.6 1617 1750.8 945 Weight 155 lb 3.2 oz 156 lb 3 oz 155 lb 1 oz 150 lb 3 oz Last Vital Signs Temp Pulse Resp BP Pulse Ox 95.4 F L 88 30 H 103/44 L 98 07/09/18 08:45 07/09/18 09:30 07/09/18 10:25 07/09/18 09:30 07/09/18 08:17 Active Medications Acetaminophen (Ofirmev Injection -) 1,000 mg IVPB Q6H PRN PRN Reason: FEVER Ascorbic Acid (Vitamin C -) 500 mg PO BID [facility] Last Admin: 07/09/18 09:24 Dose: 500 mg Collagenase (Santyl -) 1 applic TP DAILY [facility]; Protocol Last Admin: 07/09/18 09:25 Dose: 1 applic Doxycycline Hyclate (Vibramycin -) 100 mg PO BID@1000,1800 [facility] Last Admin: 07/09/18 09:41 Dose: 100 mg Folic Acid (Folic Acid -) 1 mg PO DAILY [facility] Last Admin: 07/09/18 09:24 Dose: 1 mg IV Flush (Picc Line Flush) 8 ml IVPUSH PRN PRN PRN Reason: Protocol Propofol (Diprivan -) 1,000,000 mcg in 100 mls @ 1.902 mls/hr IVPB TITR [facility]; Protocol Last Admin: 07/04/18 09:27 Dose: 20 mcg/kg/min, 7.608 mls/hr Norepinephrine Bitartrate 8, (000 mcg/ Sodium Chloride) 250 mls @ 9.37 mls/hr IV TITR [facility]; Protocol Last Titration: 07/09/18 09:30 Dose: 10 mcg/min, 18.75 mls/hr Vasopressin 50 units/ Sodium (Chloride) 100 mls @ 4 mls/hr IVPB ASDIR [facility]; Protocol Last Titration: 07/09/18 07:11 Dose: 4 units/hr, 8 mls/hr Metronidazole (Flagyl 500mg Premixed Ivpb -) 500 mg in 100 mls @ 100 mls/hr IVPB Q8H-IV [facility] Last Admin: 07/09/18 09:23 Dose: 100 mls/hr Potassium Chloride (Potassium Chloride 10 Meq Premix Ivpb -) 10 meq in 100 mls @ 100 mls/hr IVPB Q60M [facility] Stop: 07/09/18 11:44 Last Admin: 07/09/18 09:33 Dose: 100 mls/hr Sodium Chloride (Normal Saline -) 250 mls @ 3,000 mls/hr IV PRN PRN PRN Reason: Hypotension during Dialysis Stop: 07/10/18 08:20 Sodium Chloride (Normal Saline -) 250 mls @ 3,000 mls/hr IV PRN PRN PRN Reason: Hypotension during Dialysis Stop: 07/10/18 08:22 Insulin Aspart (Novolog Vial Sliding Scale -) 1 vial SQ TIDAC [facility]; Protocol Last Admin: 07/09/18 06:58 Dose: Not Given Lactobacillus Acidophilus (Bacid -) 1 tab PO DAILY [facility] Last Admin: 07/09/18 09:23 Dose: 1 tab Multi-Ingredient Ointment (Zinc Oxide) 1 applic TP BID [facility] Last Admin: 07/09/18 09:25 Dose: 1 applic Phytonadione (Mephyton -) 5 mg PO DAILY [facility] Stop: 07/10/18 10:01 Last Admin: 07/09/18 09:36 Dose: 5 mg Ranitidine HCl (Zantac -) 150 mg PO BID [facility] Last Admin: 07/09/18 09:24 Dose: 150 mg Sodium Chloride (Sodium Chloride Tablet -) 1 gm PO BID [facility] Last Admin: 07/09/18 11:37 Dose: 1 gm Vancomycin HCl (Vancomycin Oral Solution) 125 mg PO Q6HPO [facility] Last Admin: 07/09/18 06:58 Dose: Not Given Zinc Sulfate (Orazinc -) 220 mg PO DAILY [facility] Last Admin: 07/09/18 09:24 Dose: 220 mg Gen: intubated, minimally responsive, jaundiced Heart: tachycardic, irregular Lung: bilateral rhonchi Abd: soft, nontender Ext: + edema Laboratory Results - last 24 hr 07/08/18 07/08/18 07/08/18 05:30 12:06 21:46 WBC RBC Hgb Hct MCV MCH MCHC RDW Plt Count MPV Absolute Neuts (auto) Neutrophils % Neutrophils % (Manual) 81.3 Band Neutrophils % 0.0 Lymphocytes % Lymphocytes % (Manual) 13.5 D Monocytes % Monocytes % (Manual) 4 D Eosinophils % Eosinophils % (Manual) 0.0 Basophils % Basophils % (Manual) 0.0 Myelocytes % (Man) 0 Promyelocytes % (Man) 0 Blast Cells % (Manual) 0 Nucleated RBC % Metamyelocytes 1 D Hypochromia 1+ Toxic Granulation Platelet Estimate Decreased Platelet Comment Polychromasia 2+ Poikilocytosis 1+ Basophilic Stippling Anisocytosis 2+ Microcytosis 2+ Macrocytosis 0 Tear Drop Cells 1+ Stomatocytes Schistocytes PT with INR INR PTT (Actin FS) Fibrinogen Puncture Site ABG pH ABG pCO2 at Pt Temp ABG pO2 at Pt Temp ABG HCO3 ABG O2 Sat (Measured) ABG O2 Content ABG Base Excess Aly Test O2 Delivery Device Oxygen Flow Rate Vent Rate Mechanical Rate PEEP Pressure Support Vent Sodium Potassium Chloride Carbon Dioxide Anion Gap BUN Creatinine Creat Clearance w eGFR POC Glucometer 233.92974 144.64995 Random Glucose Calcium Phosphorus Magnesium Total Bilirubin Direct Bilirubin AST ALT Alkaline Phosphatase Total Protein Albumin 07/09/18 07/09/18 07/09/18 05:19 05:30 05:30 WBC 19.4 H RBC 2.20 L Hgb 5.6 L* Hct 19.1 L D MCV 86.8 MCH 25.4 L MCHC 29.2 L RDW 22.8 H Plt Count 34 L* D MPV 8.5 Absolute Neuts (auto) 16.5 H Neutrophils % 84.6 H Neutrophils % (Manual) 93.0 H Band Neutrophils % 1.0 Lymphocytes % 10.9 D Lymphocytes % (Manual) 4.0 L D Monocytes % 4.1 Monocytes % (Manual) 1 L Eosinophils % 0.3 Eosinophils % (Manual) 0.0 Basophils % 0.1 Basophils % (Manual) 0.0 Myelocytes % (Man) 1 D Promyelocytes % (Man) 0 Blast Cells % (Manual) 0 Nucleated RBC % 2 H Metamyelocytes 0 D Hypochromia 1+ Toxic Granulation 1+ Platelet Estimate Decreased Platelet Comment Polychromasia 2+ Poikilocytosis 1+ Basophilic Stippling 1+ Anisocytosis 3+ Microcytosis 2+ Macrocytosis 0 Tear Drop Cells Stomatocytes 1+ Schistocytes 1+ PT with INR INR PTT (Actin FS) 50.9 H Fibrinogen Puncture Site ABG pH ABG pCO2 at Pt Temp ABG pO2 at Pt Temp ABG HCO3 ABG O2 Sat (Measured) ABG O2 Content ABG Base Excess Aly Test O2 Delivery Device Oxygen Flow Rate Vent Rate Mechanical Rate PEEP Pressure Support Vent Sodium Potassium Chloride Carbon Dioxide Anion Gap BUN Creatinine Creat Clearance w eGFR POC Glucometer 161.27593 Random Glucose Calcium Phosphorus Magnesium Total Bilirubin Direct Bilirubin AST ALT Alkaline Phosphatase Total Protein Albumin 07/09/18 07/09/18 07/09/18 05:30 05:30 05:30 WBC RBC Hgb Hct MCV MCH MCHC RDW Plt Count MPV Absolute Neuts (auto) Neutrophils % Neutrophils % (Manual) Band Neutrophils % Lymphocytes % Lymphocytes % (Manual) Monocytes % Monocytes % (Manual) Eosinophils % Eosinophils % (Manual) Basophils % Basophils % (Manual) Myelocytes % (Man) Promyelocytes % (Man) Blast Cells % (Manual) Nucleated RBC % Metamyelocytes Hypochromia Toxic Granulation Platelet Estimate Platelet Comment Polychromasia Poikilocytosis Basophilic Stippling Anisocytosis Microcytosis Macrocytosis Tear Drop Cells Stomatocytes Schistocytes PT with INR 23.80 H INR 2.00 H PTT (Actin FS) Fibrinogen 123.0 L D Puncture Site ABG pH ABG pCO2 at Pt Temp ABG pO2 at Pt Temp ABG HCO3 ABG O2 Sat (Measured) ABG O2 Content ABG Base Excess Aly Test O2 Delivery Device Oxygen Flow Rate Vent Rate Mechanical Rate PEEP Pressure Support Vent Sodium 138 Potassium 3.1 L Chloride 105 Carbon Dioxide 16 L Anion Gap 17 H BUN 65 H Creatinine 1.9 H Creat Clearance w eGFR 34.83 POC Glucometer Random Glucose 123 H Calcium 8.2 L Phosphorus 2.8 Magnesium 1.9 Total Bilirubin 6.9 H Direct Bilirubin 5.6 H AST 80 H ALT 14 Alkaline Phosphatase 787 H Total Protein 5.7 L Albumin 1.9 L 07/09/18 08:17 WBC RBC Hgb Hct MCV MCH MCHC RDW Plt Count MPV Absolute Neuts (auto) Neutrophils % Neutrophils % (Manual) Band Neutrophils % Lymphocytes % Lymphocytes % (Manual) Monocytes % Monocytes % (Manual) Eosinophils % Eosinophils % (Manual) Basophils % Basophils % (Manual) Myelocytes % (Man) Promyelocytes % (Man) Blast Cells % (Manual) Nucleated RBC % Metamyelocytes Hypochromia Toxic Granulation Platelet Estimate Platelet Comment Polychromasia Poikilocytosis Basophilic Stippling Anisocytosis Microcytosis Macrocytosis Tear Drop Cells Stomatocytes Schistocytes PT with INR INR PTT (Actin FS) Fibrinogen Puncture Site Right radial ABG pH 7.32 L ABG pCO2 at Pt Temp 29.1 L ABG pO2 at Pt Temp 108.0 H ABG HCO3 14.6 L* ABG O2 Sat (Measured) 99.1 H ABG O2 Content 7.0 L* ABG Base Excess -10.2 L* Aly Test Positive O2 Delivery Device Ventilator Oxygen Flow Rate 35% Vent Rate 12 Mechanical Rate Yes PEEP 5.0 Pressure Support Vent 400 Sodium Potassium Chloride Carbon Dioxide Anion Gap BUN Creatinine Creat Clearance w eGFR POC Glucometer Random Glucose Calcium Phosphorus Magnesium Total Bilirubin Direct Bilirubin AST ALT Alkaline Phosphatase Total Protein Albumin ASSESSMENT AND PLAN: Acute Hypoxic Respiratory Failure Pneumonia likely Aspiration Septic Shock Acute Kidney Injury Volume Overload Metabolic Acidosis Thrombocytopenia Suspect Metastatic Disease Hyponatremia CAD HTN DM Hyperlipidemia Dementia Anemia Jehovah's witness - ABX per ID - HD per renal - monitor urine output, creatinine - titrate pressors to maintain MAP >65 - continue salt tabs - monitor lytes - enteral feeds - DVT/GI prophylaxis - HCP unrealistic about patient's condition/outcome: ideally should be comfort care - continue ICU monitoring Dr Bermudez critical care time spent in reviewing chart, evaluating patient and formulating plan 35 min
--- NOTE | 2018-07-09 11:56 | PN ---
Progress Note, Physician History of Present Illness: patient in multiorgan failure excellence consultant want dialysis patient with dialysis temp catheter no gross change in the patient intubated ethics being called upon - Current Medication List Current Medications: Active Medications Acetaminophen (Ofirmev Injection -) 1,000 mg IVPB Q6H PRN PRN Reason: FEVER Ascorbic Acid (Vitamin C -) 500 mg PO BID [facility] Last Admin: 07/09/18 09:24 Dose: 500 mg Collagenase (Santyl -) 1 applic TP DAILY [facility]; Protocol Last Admin: 07/09/18 09:25 Dose: 1 applic Doxycycline Hyclate (Vibramycin -) 100 mg PO BID@1000,1800 [facility] Last Admin: 07/09/18 09:41 Dose: 100 mg Folic Acid (Folic Acid -) 1 mg PO DAILY [facility] Last Admin: 07/09/18 09:24 Dose: 1 mg IV Flush (Picc Line Flush) 8 ml IVPUSH PRN PRN PRN Reason: Protocol Propofol (Diprivan -) 1,000,000 mcg in 100 mls @ 1.902 mls/hr IVPB TITR [facility]; Protocol Last Admin: 07/04/18 09:27 Dose: 20 mcg/kg/min, 7.608 mls/hr Norepinephrine Bitartrate 8, (000 mcg/ Sodium Chloride) 250 mls @ 9.37 mls/hr IV TITR [facility]; Protocol Last Titration: 07/09/18 09:30 Dose: 10 mcg/min, 18.75 mls/hr Vasopressin 50 units/ Sodium (Chloride) 100 mls @ 4 mls/hr IVPB ASDIR [facility]; Protocol Last Admin: 07/09/18 11:42 Dose: 4 units/hr, 8 mls/hr Metronidazole (Flagyl 500mg Premixed Ivpb -) 500 mg in 100 mls @ 100 mls/hr IVPB Q8H-IV [facility] Last Admin: 07/09/18 09:23 Dose: 100 mls/hr Sodium Chloride (Normal Saline -) 250 mls @ 3,000 mls/hr IV PRN PRN PRN Reason: Hypotension during Dialysis Stop: 07/10/18 08:20 Sodium Chloride (Normal Saline -) 250 mls @ 3,000 mls/hr IV PRN PRN PRN Reason: Hypotension during Dialysis Stop: 07/10/18 08:22 Insulin Aspart (Novolog Vial Sliding Scale -) 1 vial SQ TIDAC [facility]; Protocol Last Admin: 07/09/18 06:58 Dose: Not Given Lactobacillus Acidophilus (Bacid -) 1 tab PO DAILY [facility] Last Admin: 07/09/18 09:23 Dose: 1 tab Multi-Ingredient Ointment (Zinc Oxide) 1 applic TP BID [facility] Last Admin: 07/09/18 09:25 Dose: 1 applic Phytonadione (Mephyton -) 5 mg PO DAILY [facility] Stop: 07/10/18 10:01 Last Admin: 07/09/18 09:36 Dose: 5 mg Ranitidine HCl (Zantac -) 150 mg PO BID [facility] Last Admin: 07/09/18 09:24 Dose: 150 mg Sodium Chloride (Sodium Chloride Tablet -) 1 gm PO BID [facility] Last Admin: 07/09/18 11:37 Dose: 1 gm Vancomycin HCl (Vancomycin Oral Solution) 125 mg PO Q6HPO [facility] Last Admin: 07/09/18 06:58 Dose: Not Given Zinc Sulfate (Orazinc -) 220 mg PO DAILY [facility] Last Admin: 07/09/18 09:24 Dose: 220 mg - Objective Vital Signs: Vital Signs Temperature 95.4 F L 07/09/18 08:45 Pulse Rate 99 H 07/09/18 11:42 Respiratory Rate 30 H 07/09/18 11:20 Blood Pressure 123/56 L 07/09/18 11:42 O2 Sat by Pulse Oximetry (%) 98 07/09/18 08:17 Constitutional: Yes: Other Cardiovascular: Yes: Pulse Irregular Respiratory: Yes: Intubated, Mechanically Ventilated, Other Gastrointestinal: Yes: Normal Bowel Sounds, Soft, Other (peg in place) Extremities: Yes: Other Psychiatric: Yes: Other Labs: CBC, BMP 07/09/18 05:30 07/09/18 05:30 INR, PTT INR 2.00 (0.83-1.09) H 07/09/18 05:30 Fibrinogen 123.0 mg/dL (238-498) L D 07/09/18 05:30 - ....Imaging Chest X-ray: Report Reviewed, Image Reviewed Assessment/Plan marck List - Problems (1) Liver lesion Code(s): K76.9 - LIVER DISEASE, UNSPECIFIED (2) 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 (3) Abnormal liver enzymes Code(s): R74.8 - ABNORMAL LEVELS OF OTHER SERUM ENZYMES (4) Sacral decubitus ulcer, stage IV Code(s): L89.154 - PRESSURE ULCER OF SACRAL REGION, STAGE 4 (5) Sepsis Code(s): A41.9 - SEPSIS, UNSPECIFIED ORGANISM Qualifiers: Sepsis type: sepsis due to unspecified organism Qualified Code(s): A41.9 - Sepsis, unspecified organism (6) Anemia Code(s): D64.9 - ANEMIA, UNSPECIFIED (7) Bacteremia Code(s): R78.81 - BACTEREMIA (8) Fever Code(s): R50.9 - FEVER, UNSPECIFIED Qualifiers: Fever type: unspecified Qualified Code(s): R50.9 - Fever, unspecified (9) Basilic vein thrombosis Code(s): I82.619 - ACUTE EMBOLISM AND THROMBOSIS OF SUPERFIC VN UNSP UP EXTREM plan continue doxy patient has refused further abx says they will harm him suctioning rest as per icu nutrition resp support dialysis as per nephro patients prognosis is guarded ethics getting involved cc 38 min
--- NOTE | 2018-07-09 12:39 | PN ---
Progress Note (short form) - Note Progress Note: Followup ethics note. I first saw this patient and spoke to his healthcare proxy Kassy on June 23, 2018. After reviewing his records on that visit it became clear that Murali had multiple metastatic lesions in his liver that were innumerable and suspicious areas of his vertebral bodies that were also involved with the same process. Initial laboratory tests done revealed a CEA of over 700 and a CA 19.9 pancreas marker over 14,000 ( normal up to 35). 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 The oncology physician Dr. Alcides Hui spoke to be healthcare proxy and his opinion as stated on the EMR was that these numbers are virtually diagnostic of malignancy. The patient follows the rules of the Jehovah witness payam and no blood products are permitted. The HCP Kassy still insisted on nutrition as his primary goal and a feeding tube was placed. Several days later he became septic and was transferred to the intensive care unit. He is now bee on pressors and in fact also had dialysis treatment. Today his hemoglobin is below 6 grams and his platelets 34,000. I spoke to the healthcare proxy Kassy this morning. And although she says to me that she knows he has cancer and is quite ill she again keeps emphasizing that it is nutrition that will make him better. I explained to her that in my opinion he is very near the end of his life and that I wanted her to understand that fact before she makes any further decisions on his care. However, the decisions by Nicole still focused on nutrition and continuing treatment that indeed may not be of benefit and in fact could increase his suffering. The house staff called me this morning asking if there was a way to circumvent these decisions for comfort care if indeed the healthcare proxy was not acting in Murali's best interest. I believe that they should go to our risk management department and ask for judicial input on this decision and that is what I have recommended to the house staff.
[2018-07-09 12:58] LABS: INR 2.11 (0.83-1.09); PROTHROMBIN TIME (PATIENT) 25.1 SEC (9.7-13.0)
[2018-07-09 13:00] LABS: ACTIVATED PTT 45.3 SECONDS (25.2-36.5)
--- NOTE | 2018-07-09 13:27 | PN ---
Physical Exam: SUBJECTIVE: Patient seen and examined at bedside. Intubated, remains off sedation and minimally responsive. OBJECTIVE: Vital Signs Period Temp Pulse Resp BP Sys/Prado Pulse Ox Last 24 Hr 95.4 F-98.5 F 69-108 20-36 95-162/44-75 98-100 GENERAL: off sedation, opens eyes to vigorous sternal rub HEAD: NC/AT EYES: pupils dilated but responsive, +scleral icterus and worsening ARS, NOSE, THROAT: Moist mucous membranes NECK: supple, trachea midline LUNGS: diffusely coarse breath sounds HEART: tachycardic no m/r/g ABDOMEN: hypoactive bowel sounds, soft, PEG in place MUSCULOSKELETAL: No bony deformities EXTREMITIES: 1+ pulses, weeping edema throughout NEUROLOGICAL: GCS 4 (eyes open to pain, intubated, negligible motor response to pain), corneal reflex not assessed but noted to be absent in ICU intake evaluation SKIN: Chronic sacral decub ulcer stage 4 with low volume bloody drainage, tunneling, eschar formation; jaundice throughout and worsening Laboratory Results - last 24 hr 07/08/18 07/08/18 07/09/18 12:06 21:46 05:19 WBC RBC Hgb Hct MCV MCH MCHC RDW Plt Count MPV Absolute Neuts (auto) Neutrophils % Neutrophils % (Manual) Band Neutrophils % Lymphocytes % Lymphocytes % (Manual) Monocytes % Monocytes % (Manual) Eosinophils % Eosinophils % (Manual) Basophils % Basophils % (Manual) Myelocytes % (Man) Promyelocytes % (Man) Blast Cells % (Manual) Nucleated RBC % Metamyelocytes Hypochromia Toxic Granulation Platelet Estimate Polychromasia Poikilocytosis Basophilic Stippling Anisocytosis Microcytosis Macrocytosis Stomatocytes Schistocytes PT with INR INR PTT (Actin FS) Fibrinogen Puncture Site ABG pH ABG pCO2 at Pt Temp ABG pO2 at Pt Temp ABG HCO3 ABG O2 Sat (Measured) ABG O2 Content ABG Base Excess Aly Test O2 Delivery Device Oxygen Flow Rate Vent Rate Mechanical Rate PEEP Pressure Support Vent Sodium Potassium Chloride Carbon Dioxide Anion Gap BUN Creatinine Creat Clearance w eGFR POC Glucometer [phone] [phone] Random Glucose Calcium Phosphorus Magnesium Total Bilirubin Direct Bilirubin AST ALT Alkaline Phosphatase Total Protein Albumin 07/09/18 07/09/18 07/09/18 05:30 05:30 05:30 WBC 19.4 H RBC 2.20 L Hgb 5.6 L* Hct 19.1 L D MCV 86.8 MCH 25.4 L MCHC 29.2 L RDW 22.8 H Plt Count 34 L* D MPV 8.5 Absolute Neuts (auto) 16.5 H Neutrophils % 84.6 H Neutrophils % (Manual) 93.0 H Band Neutrophils % 1.0 Lymphocytes % 10.9 D Lymphocytes % (Manual) 4.0 L D Monocytes % 4.1 Monocytes % (Manual) 1 L Eosinophils % 0.3 Eosinophils % (Manual) 0.0 Basophils % 0.1 Basophils % (Manual) 0.0 Myelocytes % (Man) 1 D Promyelocytes % (Man) 0 Blast Cells % (Manual) 0 Nucleated RBC % 2 H Metamyelocytes 0 D Hypochromia 1+ Toxic Granulation 1+ Platelet Estimate Decreased Polychromasia 2+ Poikilocytosis 1+ Basophilic Stippling 1+ Anisocytosis 3+ Microcytosis 2+ Macrocytosis 0 Stomatocytes 1+ Schistocytes 1+ PT with INR INR PTT (Actin FS) 50.9 H Fibrinogen 123.0 L D Puncture Site ABG pH ABG pCO2 at Pt Temp ABG pO2 at Pt Temp ABG HCO3 ABG O2 Sat (Measured) ABG O2 Content ABG Base Excess Aly Test O2 Delivery Device Oxygen Flow Rate Vent Rate Mechanical Rate PEEP Pressure Support Vent Sodium Potassium Chloride Carbon Dioxide Anion Gap BUN Creatinine Creat Clearance w eGFR POC Glucometer Random Glucose Calcium Phosphorus Magnesium Total Bilirubin Direct Bilirubin AST ALT Alkaline Phosphatase Total Protein Albumin 07/09/18 07/09/18 07/09/18 05:30 05:30 08:17 WBC RBC Hgb Hct MCV MCH MCHC RDW Plt Count MPV Absolute Neuts (auto) Neutrophils % Neutrophils % (Manual) Band Neutrophils % Lymphocytes % Lymphocytes % (Manual) Monocytes % Monocytes % (Manual) Eosinophils % Eosinophils % (Manual) Basophils % Basophils % (Manual) Myelocytes % (Man) Promyelocytes % (Man) Blast Cells % (Manual) Nucleated RBC % Metamyelocytes Hypochromia Toxic Granulation Platelet Estimate Polychromasia Poikilocytosis Basophilic Stippling Anisocytosis Microcytosis Macrocytosis Stomatocytes Schistocytes PT with INR 23.80 H INR 2.00 H PTT (Actin FS) Fibrinogen Puncture Site Right radial ABG pH 7.32 L ABG pCO2 at Pt Temp 29.1 L ABG pO2 at Pt Temp 108.0 H ABG HCO3 14.6 L* ABG O2 Sat (Measured) 99.1 H ABG O2 Content 7.0 L* ABG Base Excess -10.2 L* Aly Test Positive O2 Delivery Device Ventilator Oxygen Flow Rate 35% Vent Rate 12 Mechanical Rate Yes PEEP 5.0 Pressure Support Vent 400 Sodium 138 Potassium 3.1 L Chloride 105 Carbon Dioxide 16 L Anion Gap 17 H BUN 65 H Creatinine 1.9 H Creat Clearance w eGFR 34.83 POC Glucometer Random Glucose 123 H Calcium 8.2 L Phosphorus 2.8 Magnesium 1.9 Total Bilirubin 6.9 H Direct Bilirubin 5.6 H AST 80 H ALT 14 Alkaline Phosphatase 787 H Total Protein 5.7 L Albumin 1.9 L 07/09/18 12:15 WBC RBC Hgb Hct MCV MCH MCHC RDW Plt Count MPV Absolute Neuts (auto) Neutrophils % Neutrophils % (Manual) Band Neutrophils % Lymphocytes % Lymphocytes % (Manual) Monocytes % Monocytes % (Manual) Eosinophils % Eosinophils % (Manual) Basophils % Basophils % (Manual) Myelocytes % (Man) Promyelocytes % (Man) Blast Cells % (Manual) Nucleated RBC % Metamyelocytes Hypochromia Toxic Granulation Platelet Estimate Polychromasia Poikilocytosis Basophilic Stippling Anisocytosis Microcytosis Macrocytosis Stomatocytes Schistocytes PT with INR 25.10 H INR 2.11 H PTT (Actin FS) 45.3 H Fibrinogen Puncture Site ABG pH ABG pCO2 at Pt Temp ABG pO2 at Pt Temp ABG HCO3 ABG O2 Sat (Measured) ABG O2 Content ABG Base Excess Aly Test O2 Delivery Device Oxygen Flow Rate Vent Rate Mechanical Rate PEEP Pressure Support Vent Sodium Potassium Chloride Carbon Dioxide Anion Gap BUN Creatinine Creat Clearance w eGFR POC Glucometer Random Glucose Calcium Phosphorus Magnesium Total Bilirubin Direct Bilirubin AST ALT Alkaline Phosphatase Total Protein Albumin Active Medications Generic Name Dose Route Start Last Admin Trade Name Freq PRN Reason Stop Dose Admin Acetaminophen 1,000 mg 07/02/18 04:52 Ofirmev Injection - IVPB Q6H PRN FEVER Ascorbic Acid 500 mg 06/13/18 22:00 07/09/18 09:24 Vitamin C - PO 500 mg BID JEF Administration Collagenase 1 applic 07/08/18 10:00 07/09/18 09:25 Santyl - TP 1 applic DAILY JEF Administration Protocol Doxycycline Hyclate 100 mg 06/18/18 18:00 07/09/18 09:41 Vibramycin - PO 100 mg BID@1000,1800 JEF Administration Folic Acid 1 mg 06/15/18 10:00 07/09/18 09:24 Folic Acid - PO 1 mg DAILY JEF Administration IV Flush 8 ml 06/21/18 09:17 Picc Line Flush IVPUSH PRN PRN Protocol Propofol 1,000,000 mcg in 100 mls @ 1.902 mls/hr 07/03/18 22:00 07/04/18 09: 27 Diprivan - IVPB 20 mcg/kg/min TITR JEF 7.608 mls/hr Administration Protocol 5 MCG/KG/MIN Norepinephrine Bitartrate 8, 250 mls @ 9.37 mls/hr 07/04/18 11:08 07/09/18 09 :30 000 mcg/ Sodium Chloride IV 10 mcg/min TITR JEF 18.75 mls/hr Titration Protocol 5 MCG/MIN Vasopressin 50 units/ Sodium 100 mls @ 4 mls/hr 07/08/18 10:15 07/09/18 11:42 Chloride IVPB 4 units/hr ASDIR JEF 8 mls/hr Administration Protocol 2 UNITS/HR Metronidazole 500 mg in 100 mls @ 100 mls/hr 07/08/18 18:00 07/09/18 09:23 Flagyl 500mg Premixed Ivpb - IVPB 100 mls/hr Q8H-IV JEF Administration Sodium Chloride 250 mls @ 3,000 mls/hr 07/09/18 08:20 Normal Saline - IV 07/10/18 08:20 PRN PRN Hypotension during Dialysis Sodium Chloride 250 mls @ 3,000 mls/hr 07/09/18 08:22 Normal Saline - IV 07/10/18 08:22 PRN PRN Hypotension during Dialysis Insulin Aspart 1 vial 07/03/18 07:00 07/09/18 06:58 Novolog Vial Sliding Scale - SQ Not Given TIDAC [facility] Protocol Lactobacillus Acidophilus 1 tab 07/07/18 11:15 07/09/18 09:23 Bacid - PO 1 tab DAILY JEF Administration Multi-Ingredient Ointment 1 applic 06/13/18 22:00 07/09/18 09:25 Zinc Oxide TP 1 applic BID JEF Administration Phytonadione 5 mg 07/08/18 11:15 07/09/18 09:36 Mephyton - PO 07/10/18 10:01 5 mg DAILY JEF Administration Ranitidine HCl 150 mg 07/06/18 10:00 07/09/18 09:24 Zantac - PO 150 mg BID JEF Administration Sodium Chloride 1 gm 07/02/18 16:50 07/09/18 11:37 Sodium Chloride Tablet - PO 1 gm BID JEF Administration Vancomycin HCl 125 mg 07/08/18 18:00 07/09/18 06:58 Vancomycin Oral Solution PO Not Given Q6HPO JEF Zinc Sulfate 220 mg 06/21/18 10:00 07/09/18 09:24 Orazinc - PO 220 mg DAILY JEF Administration ASSESSMENT/PLAN: 72 y/o M w/ PMH PD, CVA, HTN, HLD, IDDM, osteomyelitis, anemia, COPD, CAD, 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 #heme-onc -AM Hb 5.6, Plt 34 -Day 4 procrit 20k, no evidence of benefit in non-trauma critically ill patients -all coags elevated, fibrinogen low, DIC imminent -vitamin K PO day 12/24 -widely metastatic disease, Ca 19-9 14k therefore likely pancreatic Ca, prognosis grave -GOC initiated with HCP -prognosis explained to HCP in detail, all questions asked and answered, continues to request all aggressive measures -HCP opposes blood products in light of [employer] views but agrees to albumin ( a blood product) -having kimberlee hematochezia with diarrhea -Dr. Cobb consulted, recommends referral to for judicial action if ICU team believes HCP is acting contrary to best interests of patient - referral made, recs pending #neurologic -likely anoxic brain injury -GCS 4 -continue life support measures #pulmonary -aspiration noted during intubation -titrate vent for O2 sat > 90% #cardiac -septic shock, on levophed and vasopressin, titrate for MAP > 65 -avoid AV chris blocking agents -paroxysmal afib #renal -HD again today -nepro feeds as tolerated -cont NaCl 1g BID -remains acidotic -trend CMP/ABG #ID -sepsis 2/2 UTI and chronic ulcer infection, now in septic shock on pressors -WBC spiked to 22 yesterday -HCP disregarding ID antimicrobial recommendations and choosing agents selectively -currently on doxycycline, flagyl, PO vancomycin -blood, urine, sputum, fungal, stool cultures + C diff studies #GI -rising INR, total and direct bilirubin, alk phos -declining transaminases; likely worsening liver status with exhaustion of liver enzymes -worsening jaundice on clinical evaluation -ammonia wnl, neurologic issues therefore likely 2/2 anoxic injury -nepro feeds -trend LFTs, coags -episode of diarrhea overnight, C diff studies ordered, bacid -FOBT positive #integumentary -chronic infected stage IV decub ulcer now w/ bloody drainage and new tunneling -seen by Sx, wound care instructions implemented #FEN -no IVF -trend CMP -nepro feeds as tolerated #PPx -DVT: SCDs -GI: Zantac #dispo -monitor in ICU -full code Visit type - Emergency Visit Emergency Visit: No - New Patient This patient is new to me today: No - Critical Care Critical Care patient: Yes Total Critical Care Time (in minutes): 40 Critical Care Statement: The care of this patient involved high complexity decision making to prevent further life threatening deterioration of the patient 's condition and/or to evaluate & treat vital organ system(s) failure or risk of failure.
--- NOTE | 2018-07-09 16:04 | PN ---
Progress Note, Physician History of Present Illness: Pt seen and examined at bedside. He tolerated HD today. He remain in the ICU. He remain intubated. - Current Medication List Current Medications: Active Medications Acetaminophen (Ofirmev Injection -) 1,000 mg IVPB Q6H PRN PRN Reason: FEVER Ascorbic Acid (Vitamin C -) 500 mg PO BID JEF Last Admin: 07/09/18 09:24 Dose: 500 mg Collagenase (Santyl -) 1 applic TP DAILY JEF; Protocol Last Admin: 07/09/18 09:25 Dose: 1 applic Doxycycline Hyclate (Vibramycin -) 100 mg PO BID@1000,1800 JEF Last Admin: 07/09/18 09:41 Dose: 100 mg Folic Acid (Folic Acid -) 1 mg PO DAILY JEF Last Admin: 07/09/18 09:24 Dose: 1 mg IV Flush (Picc Line Flush) 8 ml IVPUSH PRN PRN PRN Reason: Protocol Propofol (Diprivan -) 1,000,000 mcg in 100 mls @ 1.902 mls/hr IVPB TITR JEF; Protocol Last Admin: 07/04/18 09:27 Dose: 20 mcg/kg/min, 7.608 mls/hr Norepinephrine Bitartrate 8, (000 mcg/ Sodium Chloride) 250 mls @ 9.37 mls/hr IV TITR JEF; Protocol Last Titration: 07/09/18 09:30 Dose: 10 mcg/min, 18.75 mls/hr Vasopressin 50 units/ Sodium (Chloride) 100 mls @ 4 mls/hr IVPB ASDIR JEF; Protocol Last Admin: 07/09/18 11:42 Dose: 4 units/hr, 8 mls/hr Metronidazole (Flagyl 500mg Premixed Ivpb -) 500 mg in 100 mls @ 100 mls/hr IVPB Q8H-IV JEF Last Admin: 07/09/18 09:23 Dose: 100 mls/hr Sodium Chloride (Normal Saline -) 250 mls @ 3,000 mls/hr IV PRN PRN PRN Reason: Hypotension during Dialysis Stop: 07/10/18 08:20 Sodium Chloride (Normal Saline -) 250 mls @ 3,000 mls/hr IV PRN PRN PRN Reason: Hypotension during Dialysis Stop: 07/10/18 08:22 Insulin Aspart (Novolog Vial Sliding Scale -) 1 vial SQ TIDAC [facility]; Protocol Last Admin: 07/09/18 13:35 Dose: 2 units Lactobacillus Acidophilus (Bacid -) 1 tab PO DAILY [facility] Last Admin: 07/09/18 09:23 Dose: 1 tab Multi-Ingredient Ointment (Zinc Oxide) 1 applic TP BID [facility] Last Admin: 07/09/18 09:25 Dose: 1 applic Phytonadione (Mephyton -) 5 mg PO DAILY [facility] Stop: 07/10/18 10:01 Last Admin: 07/09/18 09:36 Dose: 5 mg Ranitidine HCl (Zantac -) 150 mg PO BID [facility] Last Admin: 07/09/18 09:24 Dose: 150 mg Sodium Chloride (Sodium Chloride Tablet -) 1 gm PO BID [facility] Last Admin: 07/09/18 11:37 Dose: 1 gm Vancomycin HCl (Vancomycin Oral Solution) 125 mg PO Q6HPO [facility] Last Admin: 07/09/18 13:11 Dose: 125 mg Zinc Sulfate (Orazinc -) 220 mg PO DAILY [facility] Last Admin: 07/09/18 09:24 Dose: 220 mg - Objective Vital Signs: Vital Signs Temperature 97.2 F L 07/09/18 12:00 Pulse Rate 95 H 07/09/18 14:00 Respiratory Rate 29 H 07/09/18 15:24 Blood Pressure 156/70 07/09/18 14:00 O2 Sat by Pulse Oximetry (%) 98 07/09/18 08:17 Constitutional: Yes: Calm Eyes: Yes: Conjunctiva Clear HENT: Yes: Atraumatic Cardiovascular: Yes: S1, S2 Respiratory: Yes: Mechanically Ventilated Gastrointestinal: Yes: Soft Genitourinary: Yes: [place] Present, Oliguria Musculoskeletal: Yes: Muscle Weakness Edema: Yes Edema: LUE: 2+, RUE: 2+, LLE: 2+, RLE: 2+ Neurological: Yes: Lethargy Labs: CBC, BMP 07/09/18 05:30 07/09/18 05:30 INR, PTT INR 2.11 (0.83-1.09) H 07/09/18 12:15 Fibrinogen 123.0 mg/dL (238-498) L D 07/09/18 05:30 - ....Imaging Chest X-ray: Report Reviewed Problem List - Problems (1) JORDAN (acute kidney injury) Code(s): N17.9 - ACUTE KIDNEY FAILURE, UNSPECIFIED (2) Hyponatremia Code(s): E87.1 - HYPO-OSMOLALITY AND HYPONATREMIA Assessment/Plan Current Medications Generic Name Dose Route Start Last Admin Trade Name Freq PRN Reason Stop Dose Admin Acetaminophen 1,000 mg 07/02/18 04:52 Ofirmev Injection - IVPB Q6H PRN FEVER Ascorbic Acid 500 mg 06/13/18 22:00 07/09/18 09:24 Vitamin C - PO 500 mg BID JEF Administration Collagenase 1 applic 07/08/18 10:00 07/09/18 09:25 Santyl - TP 1 applic DAILY JEF Administration Protocol Doxycycline Hyclate 100 mg 06/18/18 18:00 07/09/18 09:41 Vibramycin - PO 100 mg BID@1000,1800 JEF Administration Folic Acid 1 mg 06/15/18 10:00 07/09/18 09:24 Folic Acid - PO 1 mg DAILY JEF Administration IV Flush 8 ml 06/21/18 09:17 Picc Line Flush IVPUSH PRN PRN Protocol Propofol 1,000,000 mcg in 100 mls @ 1.902 mls/hr 07/03/18 22:00 07/04/18 09: 27 Diprivan - IVPB 20 mcg/kg/min TITR JEF 7.608 mls/hr Administration Protocol 5 MCG/KG/MIN Norepinephrine Bitartrate 8, 250 mls @ 9.37 mls/hr 07/04/18 11:08 07/09/18 09 :30 000 mcg/ Sodium Chloride IV 10 mcg/min TITR JEF 18.75 mls/hr Titration Protocol 5 MCG/MIN Vasopressin 50 units/ Sodium 100 mls @ 4 mls/hr 07/08/18 10:15 07/09/18 11:42 Chloride IVPB 4 units/hr ASDIR JEF 8 mls/hr Administration Protocol 2 UNITS/HR Metronidazole 500 mg in 100 mls @ 100 mls/hr 07/08/18 18:00 07/09/18 09:23 Flagyl 500mg Premixed Ivpb - IVPB 100 mls/hr Q8H-IV JEF Administration Sodium Chloride 250 mls @ 3,000 mls/hr 07/09/18 08:20 Normal Saline - IV 07/10/18 08:20 PRN PRN Hypotension during Dialysis Sodium Chloride 250 mls @ 3,000 mls/hr 07/09/18 08:22 Normal Saline - IV 07/10/18 08:22 PRN PRN Hypotension during Dialysis Insulin Aspart 1 vial 07/03/18 07:00 07/09/18 13:35 Novolog Vial Sliding Scale - SQ 2 units TIDAC JEF Administration Protocol Lactobacillus Acidophilus 1 tab 07/07/18 11:15 07/09/18 09:23 Bacid - PO 1 tab DAILY JEF Administration Multi-Ingredient Ointment 1 applic 06/13/18 22:00 07/09/18 09:25 Zinc Oxide TP 1 applic BID JEF Administration Phytonadione 5 mg 07/08/18 11:15 07/09/18 09:36 Mephyton - PO 07/10/18 10:01 5 mg DAILY JEF Administration Ranitidine HCl 150 mg 07/06/18 10:00 07/09/18 09:24 Zantac - PO 150 mg BID JEF Administration Sodium Chloride 1 gm 07/02/18 16:50 07/09/18 11:37 Sodium Chloride Tablet - PO 1 gm BID JEF Administration Vancomycin HCl 125 mg 07/08/18 18:00 07/09/18 13:11 Vancomycin Oral Solution PO 125 mg Q6HPO JEF Administration Zinc Sulfate 220 mg 06/21/18 10:00 07/09/18 09:24 Orazinc - PO 220 mg DAILY JEF Administration Impression 1. hyponatremia 2. JORDAN 3. resp failure s/p intubation 4. possible liver mets 5. s/p peg 6. s/p sepsis 7. CAD 8. HTN 9. hyperlipidemia 10. parkinsons 11. DM 12. anemia Plan - pt tolerated HD today - epogen for anemia - heme follow up - will evaluate for HD again tomorrow - UF 3 liters today - pressors for map of 65 - vent support - will follow - minimize fluid intake - discussed with family at length Dr Coe
--- NOTE | 2018-07-09 19:59 | PN ---
Progress Note (short form) - Note Progress Note: Patient seen and examined intubated/sedated Last Vital Signs Temp Pulse Resp BP Pulse Ox 96.7 F L 64 32 H 86/43 L 98 07/09/18 16:00 07/09/18 18:00 07/09/18 18:00 07/09/18 18:00 07/09/18 08:17 Cor: RSR, No murmurs, No gallops Lungs: Clear to P&Aanteriorly Abd: Soft, Normal bowel sounds Ext:No edema Abnormal Lab Results 07/09/18 07/09/18 07/09/18 05:30 05:30 05:30 WBC 19.4 H RBC 2.20 L Hgb 5.6 L* Hct 19.1 L D MCH 25.4 L MCHC 29.2 L RDW 22.8 H Plt Count 34 L* D Absolute Neuts (auto) 16.5 H Neutrophils % 84.6 H Neutrophils % (Manual) 93.0 H Lymphocytes % (Manual) 4.0 L D Monocytes % (Manual) 1 L Nucleated RBC % 2 H PT with INR INR PTT (Actin FS) 50.9 H Fibrinogen 123.0 L D ABG pH ABG pCO2 at Pt Temp ABG pO2 at Pt Temp ABG HCO3 ABG O2 Sat (Measured) ABG O2 Content ABG Base Excess Potassium Carbon Dioxide Anion Gap BUN Creatinine Random Glucose Calcium Total Bilirubin Direct Bilirubin AST Alkaline Phosphatase Total Protein Albumin 07/09/18 07/09/18 07/09/18 05:30 05:30 08:17 WBC RBC Hgb Hct MCH MCHC RDW Plt Count Absolute Neuts (auto) Neutrophils % Neutrophils % (Manual) Lymphocytes % (Manual) Monocytes % (Manual) Nucleated RBC % PT with INR 23.80 H INR 2.00 H PTT (Actin FS) Fibrinogen ABG pH 7.32 L ABG pCO2 at Pt Temp 29.1 L ABG pO2 at Pt Temp 108.0 H ABG HCO3 14.6 L* ABG O2 Sat (Measured) 99.1 H ABG O2 Content 7.0 L* ABG Base Excess -10.2 L* Potassium 3.1 L Carbon Dioxide 16 L Anion Gap 17 H BUN 65 H Creatinine 1.9 H Random Glucose 123 H Calcium 8.2 L Total Bilirubin 6.9 H Direct Bilirubin 5.6 H AST 80 H Alkaline Phosphatase 787 H Total Protein 5.7 L Albumin 1.9 L 07/09/18 12:15 WBC RBC Hgb Hct MCH MCHC RDW Plt Count Absolute Neuts (auto) Neutrophils % Neutrophils % (Manual) Lymphocytes % (Manual) Monocytes % (Manual) Nucleated RBC % PT with INR 25.10 H INR 2.11 H PTT (Actin FS) 45.3 H Fibrinogen ABG pH ABG pCO2 at Pt Temp ABG pO2 at Pt Temp ABG HCO3 ABG O2 Sat (Measured) ABG O2 Content ABG Base Excess Potassium Carbon Dioxide Anion Gap BUN Creatinine Random Glucose Calcium Total Bilirubin Direct Bilirubin AST Alkaline Phosphatase Total Protein Albumin Active Medications Generic Name Dose Route Start Last Admin Trade Name Freq PRN Reason Stop Dose Admin Acetaminophen 1,000 mg 07/02/18 04:52 Ofirmev Injection - IVPB Q6H PRN FEVER Ascorbic Acid 500 mg 06/13/18 22:00 07/09/18 09:24 Vitamin C - PO 500 mg BID JEF Administration Collagenase 1 applic 07/08/18 10:00 07/09/18 09:25 Santyl - TP 1 applic DAILY JEF Administration Protocol Doxycycline Hyclate 100 mg 06/18/18 18:00 07/09/18 17:29 Vibramycin - PO 100 mg BID@1000,1800 JEF Administration Folic Acid 1 mg 06/15/18 10:00 07/09/18 09:24 Folic Acid - PO 1 mg DAILY JEF Administration IV Flush 8 ml 06/21/18 09:17 Picc Line Flush IVPUSH PRN PRN Protocol Propofol 1,000,000 mcg in 100 mls @ 1.902 mls/hr 07/03/18 22:00 07/04/18 09: 27 Diprivan - IVPB 20 mcg/kg/min TITR JEF 7.608 mls/hr Administration Protocol 5 MCG/KG/MIN Norepinephrine Bitartrate 8, 250 mls @ 9.37 mls/hr 07/04/18 11:08 07/09/18 16 :05 000 mcg/ Sodium Chloride IV 0 mcg/min TITR JEF 0 mls/hr Titration Protocol 5 MCG/MIN Vasopressin 50 units/ Sodium 100 mls @ 4 mls/hr 07/08/18 10:15 07/09/18 11:42 Chloride IVPB 4 units/hr ASDIR JEF 8 mls/hr Administration Protocol 2 UNITS/HR Metronidazole 500 mg in 100 mls @ 100 mls/hr 07/08/18 18:00 07/09/18 17:26 Flagyl 500mg Premixed Ivpb - IVPB 100 mls/hr Q8H-IV JEF Administration Sodium Chloride 250 mls @ 3,000 mls/hr 07/09/18 08:20 Normal Saline - IV 07/10/18 08:20 PRN PRN Hypotension during Dialysis Sodium Chloride 250 mls @ 3,000 mls/hr 07/09/18 08:22 Normal Saline - IV 07/10/18 08:22 PRN PRN Hypotension during Dialysis Insulin Aspart 1 vial 07/03/18 07:00 07/09/18 16:04 Novolog Vial Sliding Scale - SQ Not Given TIDAC JEF Protocol Lactobacillus Acidophilus 1 tab 07/07/18 11:15 07/09/18 09:23 Bacid - PO 1 tab DAILY JEF Administration Multi-Ingredient Ointment 1 applic 06/13/18 22:00 07/09/18 09:25 Zinc Oxide TP 1 applic BID JEF Administration Phytonadione 5 mg 07/08/18 11:15 07/09/18 09:36 Mephyton - PO 07/10/18 10:01 5 mg DAILY JEF Administration Ranitidine HCl 150 mg 07/06/18 10:00 07/09/18 09:24 Zantac - PO 150 mg BID JEF Administration Sodium Chloride 1 gm 07/02/18 16:50 07/09/18 11:37 Sodium Chloride Tablet - PO 1 gm BID JEF Administration Vancomycin HCl 125 mg 07/08/18 18:00 07/09/18 17:30 Vancomycin Oral Solution PO 125 mg Q6HPO JEF Administration Zinc Sulfate 220 mg 06/21/18 10:00 07/09/18 09:24 Orazinc - PO 220 mg DAILY JEF Administration A/P 72 y/o patient with presumed metastatic pancreatic cancer, extensive liver mets , vertebral lesions, also jehovahs witness, fialure to thrive, s/p PEG, now with sepsis, DIC, renal failure Falling platelets, coagulopathy, anemia due to septic chock multiorgan failure discussed abpve with health care proxy Kassy on phone recommended hspice care in his best interest she wishes to continue supporive care. Does not want him to get blood or blood products --platelets/FFP. On procrit -- given at dialysis yesterday and today rediscussed futility of all the efforts at this time given his terminal condition. she is requesting gi/nutrition consult ethics consult noted ongoing discussions
[2018-07-09] MEDS: NOREPINEPHRINE BITARTRATE IV SCH (21:34)
[2018-07-09] MEDS: SODIUM CHLORIDE IV SCH (21:34)
[2018-07-10] MEDS ORDERED: VASOPRESSIN 20 UNITS/ML VIAL IV ONE (01:18)
[2018-07-10] MEDS ORDERED: NOREPINEPHRINE BITARTRATE 4 MG/4 ML ML IV ONE ×2 (05:13→05:18)
[2018-07-10 06:23] LABS: BASO % 0.2 % (0-2.0); EOS % 0.5 % (0-4.5); HEMATOCRIT 18.5 % (35.4-49); LYMPH % 11.5 % (8-40); MCHC 29.3 g/dl (32.0-35.9); MEAN CELL VOLUME 88.5 fl (80-96); MEAN PLT VOLUME 8.7 fl (7.5-11.1); MONO % 4.6 % (3.8-10.2); NEUT % 83.2 % (42.8-82.8); RBC 2.09 M/mm3 (4.00-5.60); RDW 22.8 % (11.9-15.9); WHITE BLOOD COUNT 23.5 K/mm3 (4.0-10.0)
[2018-07-10] MEDS: VANCOMYCIN 250 MG/5 ML ORAL SOLUTION PO SCH ×4 (06:24→17:45)
[2018-07-10] MEDS: INSULIN SLIDING SCALE (NOVOLOG) 1 VIAL SQ SCH ×3 (06:25→17:38)
[2018-07-10 06:59] LABS: ARTERIAL BLD GAS O2 SATURATION 97.6 % (90-98.9); ARTERIAL BLOOD GAS BASE EXCESS -7.7 meq/l (-2-2); ARTERIAL BLOOD GAS PCO2 27.9 mmHg (35-45); ARTERIAL BLOOD GAS PO2 90.3 mmHg (70-100); ARTERIAL BLOOD GAS pH 7.38 (7.35-7.45)
[2018-07-10 07:02] LABS: ALLENS TEST POSITIVE
[2018-07-10 07:08] LABS: INR 2.09 (0.83-1.09); PROTHROMBIN TIME (PATIENT) 24.9 SEC (9.7-13.0)
[2018-07-10 07:11] LABS: ACTIVATED PTT 47.3 SECONDS (25.2-36.5)
[2018-07-10 07:20] LABS: ALBUMIN 2.1 g/dl (3.4-5.0); ALK PHOS 661 U/L (45-117); ANION GAP 19 MMOL/L (8-16); BILIRUBIN,DIRECT 6.4 mg/dL (0.0-0.2); BILIRUBIN,TOTAL 8.2 mg/dL (0.2-1); BLOOD UREA NITROGEN 48 mg/dL (7-18); CALCIUM 8.5 mg/dL (8.5-10.1); CHLORIDE 104 mmol/L (98-107); CO2 18 mmol/L (21-32); CREATININE 1.8 mg/dL (0.55-1.3); GLUCOSE,RANDOM 66 mg/dL (74-106); MAGNESIUM 1.7 mg/dL (1.8-2.4); PHOSPHOROUS 2.6 mg/dL (2.5-4.9); SGOT/AST 85 U/L (15-37); SGPT/ALT 14 U/L (13-61); SODIUM 141 mmol/L (136-145); TOT PROT 5.7 g/dl (6.4-8.2)
[2018-07-10 07:31] LABS: HEMOGLOBIN 5.4 GM/dL (11.7-16.9); PLATELET COUNT 35 K/MM3 (134-434)
[2018-07-10] MEDS ORDERED: PT OWN MED DRAWER 7, Y5N ONE ×2 (09:21→16:03)
--- NOTE | 2018-07-10 09:24 | PN ---
Progress Note (short form) - Note Progress Note: PULM/CCM Pt seen & examined in the ICU. Pt is in Critical condition on high dose pressors , intubated, on the vent, off all sedation w/o response. Active Medications Acetaminophen (Ofirmev Injection -) 1,000 mg IVPB Q6H PRN PRN Reason: FEVER Ascorbic Acid (Vitamin C -) 500 mg PO BID JEF Last Admin: 07/10/18 22:33 Dose: 500 mg Collagenase (Santyl -) 1 applic TP DAILY JEF; Protocol Last Admin: 07/10/18 10:05 Dose: 1 applic Cyanocobalamin (Vitamin B12 -) 1,000 mcg PO DAILY JEF Last Admin: 07/10/18 17:38 Dose: Not Given Doxycycline Hyclate (Vibramycin -) 100 mg PO BID@1000,1800 JEF Last Admin: 07/10/18 17:44 Dose: 100 mg Folic Acid (Folic Acid -) 1 mg PO DAILY JEF Last Admin: 07/10/18 10:02 Dose: 1 mg IV Flush (Picc Line Flush) 8 ml IVPUSH PRN PRN PRN Reason: Protocol Propofol (Diprivan -) 1,000,000 mcg in 100 mls @ 1.902 mls/hr IVPB TITR JEF; Protocol Last Admin: 07/04/18 09:27 Dose: 20 mcg/kg/min, 7.608 mls/hr Norepinephrine Bitartrate 8, (000 mcg/ Sodium Chloride) 250 mls @ 9.37 mls/hr IV TITR JEF; Protocol Last Admin: 07/10/18 17:37 Dose: Not Given Vasopressin 50 units/ Sodium (Chloride) 100 mls @ 4 mls/hr IVPB ASDIR JEF; Protocol Last Admin: 07/10/18 22:33 Dose: Not Given Metronidazole (Flagyl 500mg Premixed Ivpb -) 500 mg in 100 mls @ 100 mls/hr IVPB Q8H-IV [facility]EF Last Admin: 07/10/18 17:39 Dose: 100 mls/hr Insulin Aspart (Novolog Vial Sliding Scale -) 1 vial SQ TIDAC JEF; Protocol Last Admin: 07/10/18 17:38 Dose: Not Given Lactobacillus Acidophilus (Bacid -) 1 tab PO DAILY JEF Last Admin: 07/10/18 10:01 Dose: 1 tab Multi-Ingredient Ointment (Zinc Oxide) 1 applic TP BID [facility] Last Admin: 07/10/18 22:34 Dose: 1 applic Ranitidine HCl (Zantac -) 150 mg PO BID [facility] Last Admin: 07/10/18 22:33 Dose: 150 mg Sodium Chloride (Sodium Chloride Tablet -) 1 gm PO BID [facility] Last Admin: 07/10/18 22:33 Dose: 1 gm Vancomycin HCl (Vancomycin Oral Solution) 125 mg PO Q6HPO [facility] Last Admin: 07/10/18 17:45 Dose: 125 mg Zinc Sulfate (Orazinc -) 220 mg PO DAILY [facility] Last Admin: 07/10/18 10:02 Dose: 220 mg V/S Period Temp Pulse Resp BP Sys/Prado Pulse Ox Last 24 Hr 98 F-99 F 75-96 14-35 88-151/40-70 98-99 Intake & Output 07/08/18 07/09/18 07/10/18 07/11/18 23:59 23:59 23:59 23:59 Intake Total 1780.8 955 812 Output Total 30 10 150 Balance 1750.8 945 662 Weight 70.335 kg 68.124 kg 68.124 kg GEN: intubated, obtunded, ill CV: tachycardic, irregular PULM: bilateral rhonchi ABD: hypoactive BS, S/S N/T N/D [id number]/[id number] EXT: + Pulses, WWPX4, + edema SKIN: Jaundiced CBC, BMP 07/10/18 05:30 07/10/18 05:30 Microbiology 07/09/18 01:40 Stool Salmonella/Shigella Culture - Preliminary Non Lactose Fermenting Gnb 07/09/18 01:40 Stool Yersinia Culture - Preliminary NO ENTERIC PATHOGENS, 24 HOURS, ON PRIMARY PLATES 07/09/18 01:40 Stool Vibrio Culture - Final 07/09/18 01:40 Stool Escherichia coli 0157 Culture - Final NO GROWTH OF E COLI 0157 OBTAINED 07/08/18 19:50 Sputum - Endotrachea Suction/Ventilator Gram Stain - Final 07/08/18 19:50 Sputum - Endotrachea Suction/Ventilator Sputum Culture - Preliminary Yeast Like Organism 07/08/18 09:50 Blood - Peripheral Venous Blood Culture - Preliminary NO GROWTH OBTAINED AFTER 48 HOURS, INCUBATION TO CONTINUE FOR 3 DAYS. 07/08/18 08:15 Blood - Peripheral Venous Blood Culture - Preliminary NO GROWTH OBTAINED AFTER 48 HOURS, INCUBATION TO CONTINUE FOR 3 DAYS. 07/04/18 15:50 Blood - Peripheral Venous Blood Culture - Final NO GROWTH AFTER 5 DAYS INCUBATION 07/04/18 15:15 Blood - Peripheral Venous Blood Culture - Final NO GROWTH AFTER 5 DAYS INCUBATION 07/09/18 00:45 Stool Clostridium difficile Antigen (JORGE) - Final 07/09/18 00:45 Stool Clostridium difficile Toxin Assay - Final 07/04/18 14:37 Sputum - Endotrachea Suction/Ventilator Gram Stain - Final 07/04/18 14:37 Sputum - Endotrachea Suction/Ventilator Sputum Culture - Final Yeast Like Organism 06/14/18 06:40 Blood - Peripheral Venous Blood Culture - Final NO GROWTH AFTER 5 DAYS INCUBATION 06/14/18 07:00 Blood - Peripheral Venous Blood Culture - Final NO GROWTH AFTER 5 DAYS INCUBATION 06/12/18 17:22 Decubiti Gram Stain - Final 06/12/18 17:22 Decubiti Wound Culture - Final Mr S Aureus Vr Ec Faecalis Proteus Mirabilis 06/12/18 17:22 Blood - Peripheral Venous Blood Culture - Final Escherichia Coli Esbl Aircraft Time Clerk 06/12/18 17:10 Blood - Peripheral Venous Blood Culture - Final Escherichia Coli Esbl Aircraft Time Clerk 06/12/18 09:20 Urine - Urine - Catheterized Urine Culture - Final Proteus Mirabilis CXR 07/10: Since 07/09/2018, the endotracheal tube and 2 central lines persist with coarse lung changes. Impression : no significant change since prior study. ASSESS: End-Stage Pancreatic CA w/ mets (liver, vertebral lesions) FTT Acute Hypoxic Respiratory Failure Pneumonia likely Aspiration Septic Shock Acute Kidney Injury now w/ gross V/O MSOF Metabolic Acidosis Thrombocytopenia Hyponatremia CAD HTN DM Hyperlipidemia Dementia Anemia Bahai PLAN: - Cont Vent support - ABX per ID - HD per renal - monitor urine output, creatinine - titrate pressors to maintain MAP >65 - continue salt tabs - monitor lytes - enteral feeds - DVT/GI prophylaxis - Stat Family Meeting --> Pt is moribund DGL, ACNP-[facility] ICU PULM/CCM 4466 Critical Care Total Critical Care Time (in minutes): 38 Critical Care Statement: The care of this patient involved high complexity decision making to prevent further life threatening deterioration of the patient 's condition and/or to evaluate & treat vital organ system(s) failure or risk of failure.
[2018-07-10] MEDS: LACTOBACILLUS ACIDOPHILUS 1 TABLET PO SCH (10:01)
[2018-07-10] MEDS: ZINC SULFATE 220 MG CAPSULE (FP) PO SCH (10:02)
[2018-07-10] MEDS: FOLIC ACID 1 MG TABLET (FP) PO SCH (10:02)
[2018-07-10] MEDS: RANITIDINE HCL 150 MG TABLET (FP) PO SCH ×2 (10:02→22:33)
[2018-07-10] MEDS: ASCORBIC ACID 500 MG TABLET (FP) PO SCH ×2 (10:03→22:33)
[2018-07-10] MEDS: DOXYCYCLINE HYCLATE 100 MG CAPSULE PO SCH ×2 (10:03→17:44)
[2018-07-10] MEDS: PHYTONADIONE 5 MG TABLET PO SCH (10:04)
[2018-07-10] MEDS: COLLAGENASE CLOSTRIDIUM HIST. 30 GRAMS TUBE TP SCH (10:05)
[2018-07-10] MEDS: SODIUM CHLORIDE 1 GM TABLET PO SCH ×2 (10:05→22:33)
[2018-07-10] MEDS: ZINC OXIDE 20% TOPICAL OINTMENT 30 GM TUBE TP SCH ×2 (10:06→22:34)
[2018-07-10] MEDS ORDERED: HEMOQUE TEST 1 EACH EACH ONE (11:27)
[2018-07-10] MEDS ORDERED: EPOETIN ALFA 20,000 UNIT/1 ML VIAL SQ ONE (11:30)
--- NOTE | 2018-07-10 12:29 | PN ---
Progress Note, Physician History of Present Illness: no gross changes intubated on support - Current Medication List Current Medications: Active Medications Acetaminophen (Ofirmev Injection -) 1,000 mg IVPB Q6H PRN PRN Reason: FEVER Ascorbic Acid (Vitamin C -) 500 mg PO BID [facility] Last Admin: 07/10/18 10:03 Dose: 500 mg Collagenase (Santyl -) 1 applic TP DAILY JEF; Protocol Last Admin: 07/10/18 10:05 Dose: 1 applic Doxycycline Hyclate (Vibramycin -) 100 mg PO BID@1000,1800 JEF Last Admin: 07/10/18 10:03 Dose: 100 mg Folic Acid (Folic Acid -) 1 mg PO DAILY JEF Last Admin: 07/10/18 10:02 Dose: 1 mg IV Flush (Picc Line Flush) 8 ml IVPUSH PRN PRN PRN Reason: Protocol Propofol (Diprivan -) 1,000,000 mcg in 100 mls @ 1.902 mls/hr IVPB TITR JEF; Protocol Last Admin: 07/04/18 09:27 Dose: 20 mcg/kg/min, 7.608 mls/hr Norepinephrine Bitartrate 8, (000 mcg/ Sodium Chloride) 250 mls @ 9.37 mls/hr IV TITR JEF; Protocol Last Titration: 07/10/18 10:09 Dose: 3.2 mcg/min, 6 mls/hr Vasopressin 50 units/ Sodium (Chloride) 100 mls @ 4 mls/hr IVPB ASDIR JEF; Protocol Last Titration: 07/10/18 09:46 Dose: 2 units/hr, 4 mls/hr Metronidazole (Flagyl 500mg Premixed Ivpb -) 500 mg in 100 mls @ 100 mls/hr IVPB Q8H-IV JEF Last Admin: 07/10/18 10:02 Dose: 100 mls/hr Insulin Aspart (Novolog Vial Sliding Scale -) 1 vial SQ TIDAC [facility]; Protocol Last Admin: 07/10/18 06:25 Dose: Not Given Lactobacillus Acidophilus (Bacid -) 1 tab PO DAILY [facility] Last Admin: 07/10/18 10:01 Dose: 1 tab Multi-Ingredient Ointment (Zinc Oxide) 1 applic TP BID JEF Last Admin: 07/10/18 10:06 Dose: 1 applic Ranitidine HCl (Zantac -) 150 mg PO BID [facility] Last Admin: 07/10/18 10:02 Dose: 150 mg Sodium Chloride (Sodium Chloride Tablet -) 1 gm PO BID [facility] Last Admin: 07/10/18 10:05 Dose: 1 gm Vancomycin HCl (Vancomycin Oral Solution) 125 mg PO Q6HPO [facility] Last Admin: 07/10/18 06:24 Dose: 125 mg Zinc Sulfate (Orazinc -) 220 mg PO DAILY [facility] Last Admin: 07/10/18 10:02 Dose: 220 mg - Objective Vital Signs: Vital Signs Temperature 98.1 F 07/10/18 06:00 Pulse Rate 91 H 07/10/18 10:09 Respiratory Rate 34 H 07/10/18 11:33 Blood Pressure 140/70 07/10/18 10:09 O2 Sat by Pulse Oximetry (%) 99 07/10/18 08:57 Constitutional: Yes: Other Cardiovascular: Yes: Pulse Irregular Respiratory: Yes: Intubated, Mechanically Ventilated Gastrointestinal: Yes: Normal Bowel Sounds, Soft, Other (peg in place) Musculoskeletal: Yes: Other Extremities: Yes: Other Neurological: Yes: Other Labs: CBC, BMP 07/10/18 05:30 07/10/18 05:30 INR, PTT INR 2.09 (0.83-1.09) H 07/10/18 05:30 Fibrinogen 126.0 mg/dL (238-498) L 07/10/18 05:30 Assessment/Plan roblem List - Problems (1) Liver lesion Code(s): K76.9 - LIVER DISEASE, UNSPECIFIED (2) 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 (3) Abnormal liver enzymes Code(s): R74.8 - ABNORMAL LEVELS OF OTHER SERUM ENZYMES (4) Sacral decubitus ulcer, stage IV Code(s): L89.154 - PRESSURE ULCER OF SACRAL REGION, STAGE 4 (5) Sepsis Code(s): A41.9 - SEPSIS, UNSPECIFIED ORGANISM Qualifiers: Sepsis type: sepsis due to unspecified organism Qualified Code(s): A41.9 - Sepsis, unspecified organism (6) Anemia Code(s): D64.9 - ANEMIA, UNSPECIFIED (7) Bacteremia Code(s): R78.81 - BACTEREMIA (8) Fever Code(s): R50.9 - FEVER, UNSPECIFIED Qualifiers: Fever type: unspecified Qualified Code(s): R50.9 - Fever, unspecified (9) Basilic vein thrombosis Code(s): I82.619 - ACUTE EMBOLISM AND THROMBOSIS OF SUPERFIC VN UNSP UP EXTREM plan continue doxy if patient detoriates if hcp wants will broaden coverage suctioning rest as per icu nutrition resp support dialysis as per nephro patients prognosis is poor ethics getting involved cc 38 min
--- NOTE | 2018-07-10 12:37 | PN ---
Progress Note, Physician Chief Complaint: PATIENT IS ON RESPIRATORY SUPPORT, BLOOD PRESSURE SUPPORT, HEMODIALYSIS AND CRITICALLY ILL WITH SEVERE ANEMIA, PANCYTOPENIA. PATIENT IS UNRESPONSIVE TO VERBAL OR PHYSICAL STIMULI. - Current Medication List Current Medications: Active Medications Acetaminophen (Ofirmev Injection -) 1,000 mg IVPB Q6H PRN PRN Reason: FEVER Ascorbic Acid (Vitamin C -) 500 mg PO BID [facility] Last Admin: 07/10/18 10:03 Dose: 500 mg Collagenase (Santyl -) 1 applic TP DAILY [facility]EF; Protocol Last Admin: 07/10/18 10:05 Dose: 1 applic Doxycycline Hyclate (Vibramycin -) 100 mg PO BID@1000,1800 [facility]EF Last Admin: 07/10/18 10:03 Dose: 100 mg Folic Acid (Folic Acid -) 1 mg PO DAILY JEF Last Admin: 07/10/18 10:02 Dose: 1 mg IV Flush (Picc Line Flush) 8 ml IVPUSH PRN PRN PRN Reason: Protocol Propofol (Diprivan -) 1,000,000 mcg in 100 mls @ 1.902 mls/hr IVPB TITR JEF; Protocol Last Admin: 07/04/18 09:27 Dose: 20 mcg/kg/min, 7.608 mls/hr Norepinephrine Bitartrate 8, (000 mcg/ Sodium Chloride) 250 mls @ 9.37 mls/hr IV TITR JEF; Protocol Last Titration: 07/10/18 10:09 Dose: 3.2 mcg/min, 6 mls/hr Vasopressin 50 units/ Sodium (Chloride) 100 mls @ 4 mls/hr IVPB ASDIR JEF; Protocol Last Titration: 07/10/18 09:46 Dose: 2 units/hr, 4 mls/hr Metronidazole (Flagyl 500mg Premixed Ivpb -) 500 mg in 100 mls @ 100 mls/hr IVPB Q8H-IV [facility]EF Last Admin: 07/10/18 10:02 Dose: 100 mls/hr Insulin Aspart (Novolog Vial Sliding Scale -) 1 vial SQ TIDAC [facility]; Protocol Last Admin: 07/10/18 06:25 Dose: Not Given Lactobacillus Acidophilus (Bacid -) 1 tab PO DAILY [facility]EF Last Admin: 07/10/18 10:01 Dose: 1 tab Multi-Ingredient Ointment (Zinc Oxide) 1 applic TP BID [facility] Last Admin: 07/10/18 10:06 Dose: 1 applic Ranitidine HCl (Zantac -) 150 mg PO BID [facility] Last Admin: 07/10/18 10:02 Dose: 150 mg Sodium Chloride (Sodium Chloride Tablet -) 1 gm PO BID [facility] Last Admin: 07/10/18 10:05 Dose: 1 gm Vancomycin HCl (Vancomycin Oral Solution) 125 mg PO Q6HPO [facility] Last Admin: 07/10/18 06:24 Dose: 125 mg Zinc Sulfate (Orazinc -) 220 mg PO DAILY [facility] Last Admin: 07/10/18 10:02 Dose: 220 mg - Objective Vital Signs: Vital Signs Temperature 98.1 F 07/10/18 06:00 Pulse Rate 91 H 07/10/18 10:09 Respiratory Rate 34 H 07/10/18 11:33 Blood Pressure 140/70 07/10/18 10:09 O2 Sat by Pulse Oximetry (%) 99 07/10/18 08:57 Constitutional: Yes: Cachectic, Severe Distress Cardiovascular: Yes: Tachycardia Respiratory: Yes: Diminished, Mechanically Ventilated Gastrointestinal: Yes: Distention, Other Genitourinary: Yes: [place] Present Musculoskeletal: Yes: Muscle Weakness Extremities: Yes: Cold, Other Edema: Yes Wound/Incision: Yes: Dressing Dry and Intact Neurological: Yes: Pre-Existing Deficit, Unresponsive, Weakness, Other Labs: CBC, BMP 07/10/18 05:30 07/10/18 05:30 INR, PTT INR 2.09 (0.83-1.09) H 07/10/18 05:30 Fibrinogen 126.0 mg/dL (238-498) L 07/10/18 05:30 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 (3) Abnormal liver enzymes Code(s): R74.8 - ABNORMAL LEVELS OF OTHER SERUM ENZYMES (4) Sacral decubitus ulcer, stage IV Code(s): L89.154 - PRESSURE ULCER OF SACRAL REGION, STAGE 4 (5) Sepsis Code(s): A41.9 - SEPSIS, UNSPECIFIED ORGANISM Qualifiers: Sepsis type: sepsis due to unspecified organism Qualified Code(s): A41.9 - Sepsis, unspecified organism (6) Anemia Code(s): D64.9 - ANEMIA, UNSPECIFIED Qualifiers: Anemia type: unspecified type Qualified Code(s): D64.9 - Anemia, unspecified (7) Bacteremia Code(s): R78.81 - BACTEREMIA (8) Fever Code(s): R50.9 - FEVER, UNSPECIFIED Qualifiers: Fever type: unspecified Qualified Code(s): R50.9 - Fever, unspecified (9) Basilic vein thrombosis Code(s): I82.619 - ACUTE EMBOLISM AND THROMBOSIS OF SUPERFIC VN UNSP UP EXTREM (10) ESRD (end stage renal disease) on dialysis Code(s): N18.6 - END STAGE RENAL DISEASE; Z99.2 - DEPENDENCE ON RENAL DIALYSIS (11) JORDAN (acute kidney injury) Code(s): N17.9 - ACUTE KIDNEY FAILURE, UNSPECIFIED Assessment/Plan HCP (RICHY) WANTS EVERYTHING DONE TO KEEP THIS PATIENT ALIVE. ETHICS CONSULT WAS CALLED TO DISCUSS THE DECISION MAKING AND THE MENTAL COMPETENCE OF RICHY AND THE HOSPITAL STAFF ALL FEELS AT THIS POINT THAT RICHY IS NOT THINKING CLEARLY. WE HAVE CALLED CLERGY AND PALLIATIVE CARE TEAM TO DISCUSS WITH RICHY THAT MR GROSS IS SEVERELY ILL WITH END STAGE ORGAN FAILURE, METASTATIC CANCER, PANCYTOPENIA, SEVERE SKIN ULCERS, MALNUTRITION AND SEPSIS. RICHY IS ONLY FOCUSED ON FEEDING MR GROSS AND AT THIS POINT BEING HE IS UNRESPONSIVE AND WITH A FTUBE THEIR STILL IS A RISK OF ASPIRATIONS AND WE CAN DO HARM INSTEAD OF GOOD FOR THE PATIENT. ICU TEAM IS DOING EVERYTHING TO KEEP MR GROSS ALIVE WITH ALL RESPIRATORY, CARDIAC SUPPORT AND WE WILL CONTINUE THIS. F/U LABS REFUSED PRBC TRANSFUSIONS AND ON ABX HD PER RENAL
[2018-07-10 12:40] LABS: ANISOCYTOSIS 1+; MACROCYTOSIS 0; PLATELET ESTIMATE DECREASED; TARGET CELLS 1+
--- NOTE | 2018-07-10 14:35 | PN ---
Progress Note (short form) - Note Progress Note: Patient seen and examined Intubated Unresponsive Last Vital Signs Temp Pulse Resp BP Pulse Ox 98.1 F 94 H 30 H 111/55 L 99 07/10/18 06:00 07/10/18 12:00 07/10/18 13:55 07/10/18 12:00 07/10/18 08:57 intubated/sedated Cor: RSR, No murmurs, No gallops Lungs: Clear to P&Aanteriorly Abd: Soft, Normal bowel sounds Ext:RUE fflaccid ext. RLE foot--contracture Abnormal Lab Results 07/10/18 07/10/18 07/10/18 05:30 05:30 05:30 WBC 23.5 H RBC 2.09 L Hgb 5.4 L* Hct 18.5 L MCHC 29.3 L RDW 22.8 H Plt Count 35 L* Absolute Neuts (auto) 19.6 H Neutrophils % 83.2 H Neutrophils % (Manual) 91.7 H Lymphocytes % (Manual) 5.2 L D Monocytes % (Manual) 2 L D Nucleated RBC % 4 H PT with INR 24.90 H INR 2.09 H PTT (Actin FS) 47.3 H Fibrinogen 126.0 L ABG pCO2 at Pt Temp ABG HCO3 ABG O2 Content ABG Base Excess Potassium Carbon Dioxide Anion Gap BUN Creatinine Random Glucose Magnesium Total Bilirubin Direct Bilirubin AST Alkaline Phosphatase Total Protein Albumin 07/10/18 07/10/18 05:30 06:30 WBC RBC Hgb Hct MCHC RDW Plt Count Absolute Neuts (auto) Neutrophils % Neutrophils % (Manual) Lymphocytes % (Manual) Monocytes % (Manual) Nucleated RBC % PT with INR INR PTT (Actin FS) Fibrinogen ABG pCO2 at Pt Temp 27.9 L ABG HCO3 16.3 L ABG O2 Content 7.3 L* ABG Base Excess -7.7 L Potassium 3.0 L Carbon Dioxide 18 L Anion Gap 19 H BUN 48 H Creatinine 1.8 H Random Glucose 66 L Magnesium 1.7 L Total Bilirubin 8.2 H Direct Bilirubin 6.4 H AST 85 H Alkaline Phosphatase 661 H Total Protein 5.7 L Albumin 2.1 L Active Medications Generic Name Dose Route Start Last Admin Trade Name Freq PRN Reason Stop Dose Admin Acetaminophen 1,000 mg 07/02/18 04:52 Ofirmev Injection - IVPB Q6H PRN FEVER Ascorbic Acid 500 mg 06/13/18 22:00 07/10/18 10:03 Vitamin C - PO 500 mg BID JEF Administration Collagenase 1 applic 07/08/18 10:00 07/10/18 10:05 Santyl - TP 1 applic DAILY JEF Administration Protocol Cyanocobalamin 1,000 mcg 07/10/18 14:45 Vitamin B12 - PO DAILY JEF Doxycycline Hyclate 100 mg 06/18/18 18:00 07/10/18 10:03 Vibramycin - PO 100 mg BID@1000,1800 JEF Administration Folic Acid 1 mg 06/15/18 10:00 07/10/18 10:02 Folic Acid - PO 1 mg DAILY JEF Administration IV Flush 8 ml 06/21/18 09:17 Picc Line Flush IVPUSH PRN PRN Protocol Propofol 1,000,000 mcg in 100 mls @ 1.902 mls/hr 07/03/18 22:00 07/04/18 09: 27 Diprivan - IVPB 20 mcg/kg/min TITR JEF 7.608 mls/hr Administration Protocol 5 MCG/KG/MIN Norepinephrine Bitartrate 8, 250 mls @ 9.37 mls/hr 07/04/18 11:08 07/10/18 10 :09 000 mcg/ Sodium Chloride IV 3.2 mcg/min TITR JEF 6 mls/hr Titration Protocol 5 MCG/MIN Vasopressin 50 units/ Sodium 100 mls @ 4 mls/hr 07/08/18 10:15 07/10/18 09:46 Chloride IVPB 2 units/hr ASDIR JEF 4 mls/hr Titration Protocol 2 UNITS/HR Metronidazole 500 mg in 100 mls @ 100 mls/hr 07/08/18 18:00 07/10/18 10:02 Flagyl 500mg Premixed Ivpb - IVPB 100 mls/hr Q8H-IV JEF Administration Iron Sucrose 100 mg/ Sodium 100 mls @ 200 mls/hr 07/10/18 14:31 Chloride IVPB 07/10/18 15:00 ONCE ONE Insulin Aspart 1 vial 07/03/18 07:00 07/10/18 11:30 Novolog Vial Sliding Scale - SQ Not Given TIDAC JEF Protocol Lactobacillus Acidophilus 1 tab 07/07/18 11:15 07/10/18 10:01 Bacid - PO 1 tab DAILY [facility]EF Administration Multi-Ingredient Ointment 1 applic 06/13/18 22:00 07/10/18 10:06 Zinc Oxide TP 1 applic BID JEF Administration Ranitidine HCl 150 mg 07/06/18 10:00 07/10/18 10:02 Zantac - PO 150 mg BID JEF Administration Sodium Chloride 1 gm 07/02/18 16:50 07/10/18 10:05 Sodium Chloride Tablet - PO 1 gm BID [facility]EF Administration Vancomycin HCl 125 mg 07/08/18 18:00 07/10/18 13:00 Vancomycin Oral Solution PO 125 mg Q6HPO JEF Administration Zinc Sulfate 220 mg 06/21/18 10:00 07/10/18 10:02 Orazinc - PO 220 mg DAILY [facility]EF Administration A/P 72 y/o patient with presumed metastatic pancreatic cancer based on imaging/ tumor markers, extensive liver mets, vertebral lesions, also jehovahs witness, fialure to thrive, s/p PEG, now with sepsis, DIC, renal failure Falling platelets, coagulopathy, anemia due to septic chock multiorgan failure DIC/sepsis/JORDAN copagulopathy-- patients health care proxy is refusing platelets/FFP thrombocytopenia--[id number] anemia--on folate/ptrocrit--SC and iv on dayso f dialysis will redose iron h/o CVA /h/o residual rt. ssided weakness will request neuro consult ongoing discussions regarding goals of care. very poor prognosis
[2018-07-10] MEDS ORDERED: IRON SUCROSE INJECTION 100 MG in SODIUM CHLORIDE 95 ML IVPB ONE (14:45)
--- NOTE | 2018-07-10 15:12 | PN ---
Progress Note (short form) - Note Progress Note: covering dr calabrese record reviewed sepsis/mof/ on vent coagulopathy/anemia/low platelets Underlying pancreatic ca with mets (liver, vertebral lesions) Jehaovah Witness FTT s/p Peg Kidney Failure s/p HD x 2 days for fluid overload Problems 1. hyponatremia 2. JORDAN 3. resp failure s/p intubation 4. possible liver mets 5. s/p peg 6. s/p sepsis 7. CAD 8. HTN 9. hyperlipidemia 10. parkinsons 11. DM 12. anemia Current Medications Acetaminophen (Ofirmev Injection -) 1,000 mg IVPB Q6H PRN PRN Reason: FEVER Ascorbic Acid (Vitamin C -) 500 mg PO BID [facility] Last Admin: 07/10/18 10:03 Dose: 500 mg Collagenase (Santyl -) 1 applic TP DAILY [facility]; Protocol Last Admin: 07/10/18 10:05 Dose: 1 applic Cyanocobalamin (Vitamin B12 -) 1,000 mcg PO DAILY [facility] Doxycycline Hyclate (Vibramycin -) 100 mg PO BID@1000,1800 [facility] Last Admin: 07/10/18 10:03 Dose: 100 mg Folic Acid (Folic Acid -) 1 mg PO DAILY [facility] Last Admin: 07/10/18 10:02 Dose: 1 mg IV Flush (Picc Line Flush) 8 ml IVPUSH PRN PRN PRN Reason: Protocol Propofol (Diprivan -) 1,000,000 mcg in 100 mls @ 1.902 mls/hr IVPB TITR [facility]; Protocol Last Admin: 07/04/18 09:27 Dose: 20 mcg/kg/min, 7.608 mls/hr Norepinephrine Bitartrate 8, (000 mcg/ Sodium Chloride) 250 mls @ 9.37 mls/hr IV TITR [facility]; Protocol Last Titration: 07/10/18 10:09 Dose: 3.2 mcg/min, 6 mls/hr Vasopressin 50 units/ Sodium (Chloride) 100 mls @ 4 mls/hr IVPB ASDIR [facility]; Protocol Last Titration: 07/10/18 09:46 Dose: 2 units/hr, 4 mls/hr Metronidazole (Flagyl 500mg Premixed Ivpb -) 500 mg in 100 mls @ 100 mls/hr IVPB Q8H-IV [facility] Last Admin: 07/10/18 10:02 Dose: 100 mls/hr Iron Sucrose 100 mg/ Sodium (Chloride) 100 mls @ 200 mls/hr IVPB ONCE ONE Stop: 07/10/18 15:14 Insulin Aspart (Novolog Vial Sliding Scale -) 1 vial SQ TIDAC [facility]; Protocol Last Admin: 07/10/18 11:30 Dose: Not Given Lactobacillus Acidophilus (Bacid -) 1 tab PO DAILY [facility] Last Admin: 07/10/18 10:01 Dose: 1 tab Multi-Ingredient Ointment (Zinc Oxide) 1 applic TP BID [facility] Last Admin: 07/10/18 10:06 Dose: 1 applic Ranitidine HCl (Zantac -) 150 mg PO BID [facility] Last Admin: 07/10/18 10:02 Dose: 150 mg Sodium Chloride (Sodium Chloride Tablet -) 1 gm PO BID [facility] Last Admin: 07/10/18 10:05 Dose: 1 gm Vancomycin HCl (Vancomycin Oral Solution) 125 mg PO Q6HPO [facility] Last Admin: 07/10/18 13:00 Dose: 125 mg Zinc Sulfate (Orazinc -) 220 mg PO DAILY [facility] Last Admin: 07/10/18 10:02 Dose: 220 mg Last Vital Signs Temp Pulse Resp BP Pulse Ox 98.3 F 93 H 25 H 130/62 99 07/10/18 14:00 07/10/18 14:00 07/10/18 14:00 07/10/18 14:00 07/10/18 08:57 CBC, BMP 07/10/18 05:30 07/10/18 05:30 Plan-
[2018-07-10] MEDS: NOREPINEPHRINE BITARTRATE IV SCH (17:37)
[2018-07-10] MEDS: SODIUM CHLORIDE IV SCH (17:37)
[2018-07-10] MEDS: CYANOCOBALAMIN 1,000 MCG TABLET (FP) PO SCH (17:38)
[2018-07-10] MEDS: VASOPRESSIN 50 UNITS in SODIUM CHLORIDE 97.5 ML IVPB SCH (22:33)
[2018-07-11] MEDS ORDERED: DEXTROSE 50%-WATER 25 GM/50 ML DISP.SYRIN ONE (05:52)
[2018-07-11] MEDS: VANCOMYCIN 250 MG/5 ML ORAL SOLUTION PO SCH ×4 (06:09→17:56)
[2018-07-11] MEDS: INSULIN SLIDING SCALE (NOVOLOG) 1 VIAL SQ SCH ×3 (06:10→17:00)
[2018-07-11] MEDS ORDERED: VASOPRESSIN 20 UNITS/ML VIAL IV ONE (07:16)
[2018-07-11] MEDS ORDERED: PT OWN MED DRAWER 7, Y5N ONE ×2 (07:16→09:07)
--- NOTE | 2018-07-11 09:02 | PN ---
Progress Note (short form) - Note Progress Note: PULM/CCM Pt seen & examined in the ICU. MSOF & bleeding JW in DIC. Pt is moribund. Active Medications Acetaminophen (Ofirmev Injection -) 1,000 mg IVPB Q6H PRN PRN Reason: FEVER Ascorbic Acid (Vitamin C -) 500 mg PO BID [facility] Last Admin: 07/10/18 22:33 Dose: 500 mg Collagenase (Santyl -) 1 applic TP DAILY [facility]; Protocol Last Admin: 07/10/18 10:05 Dose: 1 applic Cyanocobalamin (Vitamin B12 -) 1,000 mcg PO DAILY [facility] Last Admin: 07/10/18 17:38 Dose: Not Given Doxycycline Hyclate (Vibramycin -) 100 mg PO BID@1000,1800 [facility] Last Admin: 07/10/18 17:44 Dose: 100 mg Folic Acid (Folic Acid -) 1 mg PO DAILY [facility] Last Admin: 07/10/18 10:02 Dose: 1 mg IV Flush (Picc Line Flush) 8 ml IVPUSH PRN PRN PRN Reason: Protocol Propofol (Diprivan -) 1,000,000 mcg in 100 mls @ 1.902 mls/hr IVPB TITR [facility]; Protocol Last Admin: 07/04/18 09:27 Dose: 20 mcg/kg/min, 7.608 mls/hr Norepinephrine Bitartrate 8, (000 mcg/ Sodium Chloride) 250 mls @ 9.37 mls/hr IV TITR [facility]; Protocol Last Admin: 07/10/18 17:37 Dose: Not Given Vasopressin 50 units/ Sodium (Chloride) 100 mls @ 4 mls/hr IVPB ASDIR [facility]; Protocol Last Admin: 07/10/18 22:33 Dose: Not Given Metronidazole (Flagyl 500mg Premixed Ivpb -) 500 mg in 100 mls @ 100 mls/hr IVPB Q8H-IV [facility] Last Admin: 07/11/18 02:00 Dose: 100 mls/hr Insulin Aspart (Novolog Vial Sliding Scale -) 1 vial SQ TIDAC [facility]; Protocol Last Admin: 07/11/18 06:10 Dose: Not Given Lactobacillus Acidophilus (Bacid -) 1 tab PO DAILY [facility] Last Admin: 07/10/18 10:01 Dose: 1 tab Multi-Ingredient Ointment (Zinc Oxide) 1 applic TP BID [facility] Last Admin: 07/10/18 22:34 Dose: 1 applic Ranitidine HCl (Zantac -) 150 mg PO BID [facility] Last Admin: 07/10/18 22:33 Dose: 150 mg Sodium Chloride (Sodium Chloride Tablet -) 1 gm PO BID [facility] Last Admin: 07/10/18 22:33 Dose: 1 gm Vancomycin HCl (Vancomycin Oral Solution) 125 mg PO Q6HPO [facility] Last Admin: 07/11/18 06:09 Dose: 125 mg Zinc Sulfate (Orazinc -) 220 mg PO DAILY [facility] Last Admin: 07/10/18 10:02 Dose: 220 mg Vital Signs Period Temp Pulse Resp BP Sys/Prado Pulse Ox Last 24 Hr 97.8 F-98.6 F 75-94 14-35 88-135/40-70 97-99 Intake & Output 07/08/18 07/09/18 07/10/18 07/11/18 23:59 23:59 23:59 23:59 Intake Total 1780.8 955 812 Output Total 30 10 150 Balance 1750.8 945 662 Weight 70.335 kg 68.124 kg 68.124 kg 68.124 kg GEN: intubated, obtunded, ill CV: tachycardic, irregular PULM: bilateral rhonchi ABD: Silent BS, S/S N/T N/D [id number] EXT: + Pulses, WWPX4, + edema SKIN: Jaundiced CBC, BMP 07/10/18 05:30 07/10/18 05:30 INR, PTT INR 2.09 (0.83-1.09) H 07/10/18 05:30 Fibrinogen 126.0 mg/dL (238-498) L 07/10/18 05:30 Microbiology 07/08/18 09:50 Blood - Peripheral Venous Blood Culture - Preliminary NO GROWTH OBTAINED AFTER 72 HOURS, INCUBATION TO CONTINUE FOR 2 DAYS. 07/09/18 14:45 Urine - Urine A[place]as Urine Culture - Final Yeast Like Organism 07/08/18 08:15 Blood - Peripheral Venous Blood Culture - Preliminary NO GROWTH OBTAINED AFTER 72 HOURS, INCUBATION TO CONTINUE FOR 2 DAYS. 07/09/18 01:40 Stool Salmonella/Shigella Culture - Preliminary Non Lactose Fermenting Gnb 07/09/18 01:40 Stool Yersinia Culture - Preliminary NO ENTERIC PATHOGENS, 24 HOURS, ON PRIMARY PLATES 07/09/18 01:40 Stool Vibrio Culture - Final 07/09/18 01:40 Stool Escherichia coli 0157 Culture - Final NO GROWTH OF E COLI 0157 OBTAINED 07/08/18 19:50 Sputum - Endotrachea Suction/Ventilator Gram Stain - Final 07/08/18 19:50 Sputum - Endotrachea Suction/Ventilator Sputum Culture - Preliminary Yeast Like Organism 07/04/18 15:50 Blood - Peripheral Venous Blood Culture - Final NO GROWTH AFTER 5 DAYS INCUBATION 07/04/18 15:15 Blood - Peripheral Venous Blood Culture - Final NO GROWTH AFTER 5 DAYS INCUBATION 07/09/18 00:45 Stool Clostridium difficile Antigen (JORGE) - Final 07/09/18 00:45 Stool Clostridium difficile Toxin Assay - Final 07/04/18 14:37 Sputum - Endotrachea Suction/Ventilator Gram Stain - Final 07/04/18 14:37 Sputum - Endotrachea Suction/Ventilator Sputum Culture - Final Yeast Like Organism 06/14/18 06:40 Blood - Peripheral Venous Blood Culture - Final NO GROWTH AFTER 5 DAYS INCUBATION 06/14/18 07:00 Blood - Peripheral Venous Blood Culture - Final NO GROWTH AFTER 5 DAYS INCUBATION 06/12/18 17:22 Decubiti Gram Stain - Final 06/12/18 17:22 Decubiti Wound Culture - Final Mr S Aureus Vr Ec Faecalis Proteus Mirabilis 06/12/18 17:22 Blood - Peripheral Venous Blood Culture - Final Escherichia Coli Esbl Tandem Operator 06/12/18 17:10 Blood - Peripheral Venous Blood Culture - Final Escherichia Coli Esbl Tandem Operator 06/12/18 09:20 Urine - Urine - Catheterized Urine Culture - Final Proteus Mirabilis CXR 07/11: Since the prior study of 07/10/2018, again noted are the coarse changes with rotation to the right , weak inspiration, ET tube with tip well above desirae and NG tube with tip in stomach. There is old right shoulder trauma. There is some atelectasis or infiltrate at the bases. Follow-up recommended. ASSESS: End-Stage Pancreatic CA w/ mets (liver, vertebral lesions) FTT Acute Hypoxic Respiratory Failure Pneumonia likely Aspiration Septic Shock Acute Kidney Injury now w/ gross V/O MSOF Metabolic Acidosis Thrombocytopenia Hyponatremia CAD HTN DM Hyperlipidemia Dementia Anemia Yazidism PLAN: - Cont Vent support - titrate pressors to maintain MAP >65 - ABX per ID - HD per renal - monitor lytes - HCP (Kassy) is requesting TFs, however, pt is in MSOF & GI tract is shut down - DVT/GI prophylaxis - Stat Family Meeting --> Pt is moribund need to move pt to [facility] (pt is suffering). SOHA, DARENP-BC [facility] ICU PULM/CCM 4495 Critical Care Total Critical Care Time (in minutes): 38 Critical Care Statement: The care of this patient involved high complexity decision making to prevent further life threatening deterioration of the patient 's condition and/or to evaluate & treat vital organ system(s) failure or risk of failure.
--- NOTE | 2018-07-11 09:13 | PN ---
GI Progress Note Subjective: For Dr. Dawkins Asked to comment on reinitiating tube feeds. 200cc tube feeds suctioned from G- Tube yesterday, despite tube feeds being held for 40 hours previously. There was also concern of rectal bleeding. His Hgb is 5.4 and platelet count is 35K. He has been on two pressors. There is no rectal bleeding today. Per chart it is felt that he is high risk for aspiration with tube feeding. - Objective Vital Signs: Vital Signs Temperature 98.2 F 07/11/18 06:00 Pulse Rate 83 07/11/18 08:34 Respiratory Rate 32 H 07/11/18 08:34 Blood Pressure 99/45 L 07/11/18 08:00 O2 Sat by Pulse Oximetry (%) 97 07/11/18 08:34 Constitutional: Calm Eyes: Yes: Sclera Icterus Cardiovascular: Yes: Regular Rate and Rhythm Respiratory: Yes: Diminished (at bases b/l) Gastrointestinal Inspection: No: Distention ...Auscultate: Yes: Hypoactive Bowel Sounds ...Palpate: Yes: Soft. No: Hepatomegaly, Splenomegaly ...Rectal Exam: Yes: Other (lowe soft stool) Edema: No (No LE edema) Neurological: Yes: Other (Sedated on vent) Labs: CBC, BMP 07/10/18 05:30 07/10/18 05:30 INR, PTT INR 2.09 (0.83-1.09) H 07/10/18 05:30 Fibrinogen 126.0 mg/dL (238-498) L 07/10/18 05:30 Problem List - Problems (1) Multiorgan failure Assessment/Plan: Patient in multiorgan failure and significant metastatic disease to the liver. Likely has poor GI motility and absorption secondary to pressor support and his multiorgan failure. There is no overt bleeding and no GI interventions are planned given his profound anemia, thrombocytopenia and coagulopathy. He does not receive blood products. Comfort measures would likely be the most reasonable treatment option at this point If continued aggressive work-up and care is requested by family/HCP, then: Continue to monitor for residuals. Slow resumption of low rate tube feeds with aspiration precautions and addition of promotility agent such as renally dosed reglan if no contraindications such as QT prolongation Abdominal US to evaluate for rising liver chemistries AXR to evaluate for ileus Minimize hepatotoxic agents Code(s): [id number] -
[2018-07-11] MEDS: VASOPRESSIN 50 UNITS in SODIUM CHLORIDE 97.5 ML IVPB SCH (10:15)
[2018-07-11] MEDS: DOXYCYCLINE HYCLATE 100 MG CAPSULE PO SCH ×2 (10:27→17:56)
[2018-07-11] MEDS: SODIUM CHLORIDE 1 GM TABLET PO SCH ×2 (10:27→21:24)
[2018-07-11] MEDS: LACTOBACILLUS ACIDOPHILUS 1 TABLET PO SCH (10:28)
[2018-07-11] MEDS: CYANOCOBALAMIN 1,000 MCG TABLET (FP) PO SCH (10:28)
[2018-07-11] MEDS: RANITIDINE HCL 150 MG TABLET (FP) PO SCH ×2 (10:28→21:25)
[2018-07-11] MEDS: ASCORBIC ACID 500 MG TABLET (FP) PO SCH ×2 (10:28→21:25)
[2018-07-11] MEDS: FOLIC ACID 1 MG TABLET (FP) PO SCH (10:29)
[2018-07-11] MEDS: COLLAGENASE CLOSTRIDIUM HIST. 30 GRAMS TUBE TP SCH (10:30)
[2018-07-11] MEDS: ZINC OXIDE 20% TOPICAL OINTMENT 30 GM TUBE TP SCH ×2 (10:33→21:26)
[2018-07-11] MEDS: ZINC SULFATE 220 MG CAPSULE (FP) PO SCH (10:38)
[2018-07-11] MEDS: SODIUM CHLORIDE IV SCH (12:30)
[2018-07-11] MEDS: NOREPINEPHRINE BITARTRATE IV SCH (12:30)
[2018-07-11] MEDS: ACETAMINOPHEN 1000 MG/100 ML VIAL (NON FORMULARY) IVPB PRN (12:48)
[2018-07-11] MEDS ORDERED: NOREPINEPHRINE BITARTRATE 4 MG/4 ML ML IV ONE (12:53)
--- NOTE | 2018-07-11 13:56 | PN ---
Progress Note, Physician History of Present Illness: continues to do poorly h and h and platelet have dropped g tube feeding on hold HCP refusing any intervention from transfusion point of view because of zoroastrianism beliefs - Current Medication List Current Medications: Active Medications Acetaminophen (Ofirmev Injection -) 1,000 mg IVPB Q6H PRN PRN Reason: FEVER Last Admin: 07/11/18 12:48 Dose: 1,000 mg Ascorbic Acid (Vitamin C -) 500 mg PO BID [facility] Last Admin: 07/11/18 10:28 Dose: 500 mg Collagenase (Santyl -) 1 applic TP DAILY [facility]; Protocol Last Admin: 07/11/18 10:30 Dose: 1 applic Cyanocobalamin (Vitamin B12 -) 1,000 mcg PO DAILY [facility] Last Admin: 07/11/18 10:28 Dose: 1,000 mcg Doxycycline Hyclate (Vibramycin -) 100 mg PO BID@1000,1800 [facility] Last Admin: 07/11/18 10:27 Dose: 100 mg Folic Acid (Folic Acid -) 1 mg PO DAILY [facility] Last Admin: 07/11/18 10:29 Dose: 1 mg IV Flush (Picc Line Flush) 8 ml IVPUSH PRN PRN PRN Reason: Protocol Propofol (Diprivan -) 1,000,000 mcg in 100 mls @ 1.902 mls/hr IVPB TITR [facility]; Protocol Last Admin: 07/04/18 09:27 Dose: 20 mcg/kg/min, 7.608 mls/hr Norepinephrine Bitartrate 8, (000 mcg/ Sodium Chloride) 250 mls @ 9.37 mls/hr IV TITR [facility]; Protocol Last Admin: 07/11/18 12:30 Dose: 2.13 mcg/min, 4 mls/hr Vasopressin 50 units/ Sodium (Chloride) 100 mls @ 4 mls/hr IVPB ASDIR [facility]; Protocol Last Admin: 07/10/18 22:33 Dose: Not Given Metronidazole (Flagyl 500mg Premixed Ivpb -) 500 mg in 100 mls @ 100 mls/hr IVPB Q8H-IV [facility] Last Admin: 07/11/18 10:35 Dose: 100 mls/hr Insulin Aspart (Novolog Vial Sliding Scale -) 1 vial SQ TIDAC [facility]; Protocol Last Admin: 07/11/18 12:00 Dose: Not Given Lactobacillus Acidophilus (Bacid -) 1 tab PO DAILY [facility] Last Admin: 07/11/18 10:28 Dose: 1 tab Multi-Ingredient Ointment (Zinc Oxide) 1 applic TP BID [facility] Last Admin: 07/11/18 10:33 Dose: 1 applic Ranitidine HCl (Zantac -) 150 mg PO BID [facility] Last Admin: 07/11/18 10:28 Dose: 150 mg Sodium Chloride (Sodium Chloride Tablet -) 1 gm PO BID [facility] Last Admin: 07/11/18 10:27 Dose: 1 gm Vancomycin HCl (Vancomycin Oral Solution) 125 mg PO Q6HPO [facility] Last Admin: 07/11/18 12:28 Dose: 125 mg Zinc Sulfate (Orazinc -) 220 mg PO DAILY [facility] Last Admin: 07/11/18 10:38 Dose: 220 mg - Objective Vital Signs: Vital Signs Temperature 98.2 F 07/11/18 06:00 Pulse Rate 93 H 07/11/18 12:30 Respiratory Rate 27 H 07/11/18 13:30 Blood Pressure 121/51 L 07/11/18 12:30 O2 Sat by Pulse Oximetry (%) 97 07/11/18 09:00 Constitutional: Yes: Other Cardiovascular: Yes: Pulse Irregular Respiratory: Yes: Intubated, Mechanically Ventilated Gastrointestinal: Yes: Soft, Other (peg in place) Extremities: Yes: Other Neurological: Yes: Other Labs: CBC, BMP 07/10/18 05:30 07/10/18 05:30 INR, PTT INR 2.09 (0.83-1.09) H 07/10/18 05:30 Fibrinogen 126.0 mg/dL (238-498) L 07/10/18 05:30 Assessment/Plan roblem List - Problems (1) Liver lesion Code(s): K76.9 - LIVER DISEASE, UNSPECIFIED (2) 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 (3) Abnormal liver enzymes Code(s): R74.8 - ABNORMAL LEVELS OF OTHER SERUM ENZYMES (4) Sacral decubitus ulcer, stage IV Code(s): L89.154 - PRESSURE ULCER OF SACRAL REGION, STAGE 4 (5) Sepsis Code(s): A41.9 - SEPSIS, UNSPECIFIED ORGANISM Qualifiers: Sepsis type: sepsis due to unspecified organism Qualified Code(s): A41.9 - Sepsis, unspecified organism (6) Anemia Code(s): D64.9 - ANEMIA, UNSPECIFIED (7) Bacteremia Code(s): R78.81 - BACTEREMIA (8) Fever Code(s): R50.9 - FEVER, UNSPECIFIED Qualifiers: Fever type: unspecified Qualified Code(s): R50.9 - Fever, unspecified (9) Basilic vein thrombosis Code(s): I82.619 - ACUTE EMBOLISM AND THROMBOSIS OF SUPERFIC VN UNSP UP EXTREM plan continue doxy if patient detoriates if hcp wants will broaden coverage suctioning rest as per icu nutrition resp support as per gi patients prognosis is poor discussed for quite some time with HCP cc 38 min
--- NOTE | 2018-07-11 14:30 | PN ---
Progress Note, Physician Chief Complaint: OBTUNDED/LETHARGIC INTUBATED ON VENT SUPPORT - Current Medication List Current Medications: Active Medications Acetaminophen (Ofirmev Injection -) 1,000 mg IVPB Q6H PRN PRN Reason: FEVER Last Admin: 07/11/18 12:48 Dose: 1,000 mg Ascorbic Acid (Vitamin C -) 500 mg PO BID [facility] Last Admin: 07/11/18 10:28 Dose: 500 mg Collagenase (Santyl -) 1 applic TP DAILY [facility]; Protocol Last Admin: 07/11/18 10:30 Dose: 1 applic Cyanocobalamin (Vitamin B12 -) 1,000 mcg PO DAILY [facility] Last Admin: 07/11/18 10:28 Dose: 1,000 mcg Doxycycline Hyclate (Vibramycin -) 100 mg PO BID@1000,1800 [facility] Last Admin: 07/11/18 10:27 Dose: 100 mg Folic Acid (Folic Acid -) 1 mg PO DAILY [facility] Last Admin: 07/11/18 10:29 Dose: 1 mg IV Flush (Picc Line Flush) 8 ml IVPUSH PRN PRN PRN Reason: Protocol Propofol (Diprivan -) 1,000,000 mcg in 100 mls @ 1.902 mls/hr IVPB TITR [facility]; Protocol Last Admin: 07/04/18 09:27 Dose: 20 mcg/kg/min, 7.608 mls/hr Norepinephrine Bitartrate 8, (000 mcg/ Sodium Chloride) 250 mls @ 9.37 mls/hr IV TITR [facility]; Protocol Last Admin: 07/11/18 12:30 Dose: 2.13 mcg/min, 4 mls/hr Vasopressin 50 units/ Sodium (Chloride) 100 mls @ 4 mls/hr IVPB ASDIR [facility]; Protocol Last Admin: 07/11/18 10:15 Dose: Not Given Metronidazole (Flagyl 500mg Premixed Ivpb -) 500 mg in 100 mls @ 100 mls/hr IVPB Q8H-IV [facility] Last Admin: 07/11/18 10:35 Dose: 100 mls/hr Insulin Aspart (Novolog Vial Sliding Scale -) 1 vial SQ TIDAC [facility]; Protocol Last Admin: 07/11/18 12:00 Dose: Not Given Lactobacillus Acidophilus (Bacid -) 1 tab PO DAILY [facility] Last Admin: 10/21/18 10:28 Dose: 1 tab Multi-Ingredient Ointment (Zinc Oxide) 1 applic TP BID [facility] Last Admin: 07/11/18 10:33 Dose: 1 applic Ranitidine HCl (Zantac -) 150 mg PO BID [facility] Last Admin: 07/11/18 10:28 Dose: 150 mg Sodium Chloride (Sodium Chloride Tablet -) 1 gm PO BID [facility] Last Admin: 07/11/18 10:27 Dose: 1 gm Vancomycin HCl (Vancomycin Oral Solution) 125 mg PO Q6HPO [facility] Last Admin: 07/11/18 12:28 Dose: 125 mg Zinc Sulfate (Orazinc -) 220 mg PO DAILY [facility] Last Admin: 07/11/18 10:38 Dose: 220 mg - Objective Vital Signs: Vital Signs Temperature 98.2 F 07/11/18 06:00 Pulse Rate 93 H 07/11/18 12:30 Respiratory Rate 27 H 07/11/18 13:30 Blood Pressure 121/51 L 07/11/18 12:30 O2 Sat by Pulse Oximetry (%) 97 07/11/18 09:00 Constitutional: Yes: Cachectic, Other Eyes: Yes: Other Cardiovascular: Yes: Tachycardia, Pulse Irregular Respiratory: Yes: Diminished, Mechanically Ventilated Gastrointestinal: Yes: Soft, Other Genitourinary: Yes: [place] Present Musculoskeletal: Yes: Muscle Weakness Edema: No Integumentary: Yes: Pressure Ulcer (STAGE 4 SACRAL DECUBITI WITH SMALL OTHER SKIN TEARS TO LEGS), Skin Tear Wound/Incision: Yes: Open to air, Dressing Dry and Intact, Reddened, Excoriated , Unapproximated Neurological: Yes: Unresponsive Labs: CBC, BMP 07/10/18 05:30 07/10/18 05:30 INR, PTT INR 2.09 (0.83-1.09) H 07/10/18 05:30 Fibrinogen 126.0 mg/dL (238-498) L 07/10/18 05:30 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 (3) Abnormal liver enzymes Code(s): R74.8 - ABNORMAL LEVELS OF OTHER SERUM ENZYMES (4) Sacral decubitus ulcer, stage IV Code(s): L89.154 - PRESSURE ULCER OF SACRAL REGION, STAGE 4 (5) Sepsis Code(s): A41.9 - SEPSIS, UNSPECIFIED ORGANISM Qualifiers: Sepsis type: sepsis due to unspecified organism Qualified Code(s): A41.9 - Sepsis, unspecified organism (6) Anemia Code(s): D64.9 - ANEMIA, UNSPECIFIED Qualifiers: Anemia type: unspecified type Qualified Code(s): D64.9 - Anemia, unspecified (7) Bacteremia Code(s): R78.81 - BACTEREMIA (8) Fever Code(s): R50.9 - FEVER, UNSPECIFIED Qualifiers: Fever type: unspecified Qualified Code(s): R50.9 - Fever, unspecified (9) Basilic vein thrombosis Code(s): I82.619 - ACUTE EMBOLISM AND THROMBOSIS OF SUPERFIC VN UNSP UP EXTREM (10) ESRD (end stage renal disease) on dialysis Code(s): N18.6 - END STAGE RENAL DISEASE; Z99.2 - DEPENDENCE ON RENAL DIALYSIS (11) JORDAN (acute kidney injury) Code(s): N17.9 - ACUTE KIDNEY FAILURE, UNSPECIFIED Assessment/Plan HCP (RICHY) WANTS EVERYTHING DONE TO KEEP THIS PATIENT ALIVE. ETHICS CONSULT WAS CALLED TO DISCUSS THE DECISION MAKING AND THE MENTAL COMPETENCE OF RICHY AND THE HOSPITAL STAFF ALL FEELS AT THIS POINT THAT RICHY IS NOT THINKING CLEARLY. WE HAVE CALLED CLERGY AND PALLIATIVE CARE TEAM TO DISCUSS WITH RICHY THAT MR GROSS IS SEVERELY ILL WITH END STAGE ORGAN FAILURE, METASTATIC CANCER, PANCYTOPENIA, SEVERE SKIN ULCERS, MALNUTRITION AND SEPSIS. RICHY IS ONLY FOCUSED ON FEEDING MR GROSS AND AT THIS POINT BEING HE IS UNRESPONSIVE AND WITH A FTUBE THEIR STILL IS A RISK OF ASPIRATIONS AND WE CAN DO HARM INSTEAD OF GOOD FOR THE PATIENT. ICU TEAM IS DOING EVERYTHING TO KEEP MR GROSS ALIVE WITH ALL RESPIRATORY, CARDIAC SUPPORT AND WE WILL CONTINUE THIS. F/U LABS REFUSED PRBC TRANSFUSIONS AND ON ABX HD PER RENAL CLERGY CONSULT APPRECIATED
--- NOTE | 2018-07-11 16:28 | PN ---
Progress Note (short form) - Note Progress Note: covering dr calabrese record reviewed sepsis/mof/ on vent coagulopathy/anemia/low platelets Underlying pancreatic ca with mets (liver, vertebral lesions) Jehaovah Witness FTT s/p Peg Kidney Failure s/p HD x 2 days for fluid overload Problems 1. hyponatremia 2. JORDAN 3. resp failure s/p intubation 4. possible liver mets 5. s/p peg 6. s/p sepsis 7. CAD 8. HTN 9. hyperlipidemia 10. parkinsons 11. DM 12. anemia Current Medications Acetaminophen (Ofirmev Injection -) 1,000 mg IVPB Q6H PRN PRN Reason: FEVER Last Admin: 07/11/18 12:48 Dose: 1,000 mg Ascorbic Acid (Vitamin C -) 500 mg PO BID [facility] Last Admin: 07/11/18 10:28 Dose: 500 mg Collagenase (Santyl -) 1 applic TP DAILY [facility]; Protocol Last Admin: 07/11/18 10:30 Dose: 1 applic Cyanocobalamin (Vitamin B12 -) 1,000 mcg PO DAILY [facility] Last Admin: 07/11/18 10:28 Dose: 1,000 mcg Doxycycline Hyclate (Vibramycin -) 100 mg PO BID@1000,1800 [facility] Last Admin: 07/11/18 10:27 Dose: 100 mg Folic Acid (Folic Acid -) 1 mg PO DAILY [facility] Last Admin: 07/11/18 10:29 Dose: 1 mg IV Flush (Picc Line Flush) 8 ml IVPUSH PRN PRN PRN Reason: Protocol Propofol (Diprivan -) 1,000,000 mcg in 100 mls @ 1.902 mls/hr IVPB TITR [facility]; Protocol Last Admin: 07/04/18 09:27 Dose: 20 mcg/kg/min, 7.608 mls/hr Norepinephrine Bitartrate 8, (000 mcg/ Sodium Chloride) 250 mls @ 9.37 mls/hr IV TITR [facility]; Protocol Last Admin: 07/11/18 12:30 Dose: 2.13 mcg/min, 4 mls/hr Vasopressin 50 units/ Sodium (Chloride) 100 mls @ 4 mls/hr IVPB ASDIR [facility]; Protocol Last Admin: 07/11/18 10:15 Dose: Not Given Metronidazole (Flagyl 500mg Premixed Ivpb -) 500 mg in 100 mls @ 100 mls/hr IVPB Q8H-IV [facility] Last Admin: 07/11/18 10:35 Dose: 100 mls/hr Insulin Aspart (Novolog Vial Sliding Scale -) 1 vial SQ TIDAC [facility]; Protocol Last Admin: 07/11/18 12:00 Dose: Not Given Lactobacillus Acidophilus (Bacid -) 1 tab PO DAILY [facility] Last Admin: 07/11/18 10:28 Dose: 1 tab Multi-Ingredient Ointment (Zinc Oxide) 1 applic TP BID [facility] Last Admin: 07/11/18 10:33 Dose: 1 applic Ranitidine HCl (Zantac -) 150 mg PO BID [facility] Last Admin: 07/11/18 10:28 Dose: 150 mg Sodium Chloride (Sodium Chloride Tablet -) 1 gm PO BID [facility] Last Admin: 07/11/18 10:27 Dose: 1 gm Vancomycin HCl (Vancomycin Oral Solution) 125 mg PO Q6HPO [facility] Last Admin: 07/11/18 12:28 Dose: 125 mg Zinc Sulfate (Orazinc -) 220 mg PO DAILY [facility] Last Admin: 07/11/18 10:38 Dose: 220 mg Last Vital Signs Temp Pulse Resp BP Pulse Ox 98.2 F 89 33 H 109/46 L 97 07/11/18 06:00 07/11/18 16:00 07/11/18 16:00 07/11/18 16:00 07/11/18 09:00 CBC, BMP 07/10/18 05:30 07/10/18 05:30 IMP- MOF severe anemia Jehovah Witness unable to receive blood Plan- continue supportive care blood draws to a minimum to prevent worsening anemia
--- NOTE | 2018-07-11 22:44 | PN ---
Progress Note (short form) - Note Progress Note: Patient seen and examined Intubated Unresponsive Last Vital Signs Temp Pulse Resp BP Pulse Ox 98.1 F 94 H 30 H 111/55 L 99 07/10/18 06:00 07/10/18 12:00 07/10/18 13:55 07/10/18 12:00 07/10/18 08:57 intubated/sedated Cor: RSR, No murmurs, No gallops Lungs: Clear to P&Aanteriorly Abd: Soft, Normal bowel sounds Ext:RUE fflaccid ext. RLE foot--contracture Abnormal Lab Results 07/10/18 07/10/18 07/10/18 05:30 05:30 05:30 WBC 23.5 H RBC 2.09 L Hgb 5.4 L* Hct 18.5 L MCHC 29.3 L RDW 22.8 H Plt Count 35 L* Absolute Neuts (auto) 19.6 H Neutrophils % 83.2 H Neutrophils % (Manual) 91.7 H Lymphocytes % (Manual) 5.2 L D Monocytes % (Manual) 2 L D Nucleated RBC % 4 H PT with INR 24.90 H INR 2.09 H PTT (Actin FS) 47.3 H Fibrinogen 126.0 L ABG pCO2 at Pt Temp ABG HCO3 ABG O2 Content ABG Base Excess Potassium Carbon Dioxide Anion Gap BUN Creatinine Random Glucose Magnesium Total Bilirubin Direct Bilirubin AST Alkaline Phosphatase Total Protein Albumin 07/10/18 07/10/18 05:30 06:30 WBC RBC Hgb Hct MCHC RDW Plt Count Absolute Neuts (auto) Neutrophils % Neutrophils % (Manual) Lymphocytes % (Manual) Monocytes % (Manual) Nucleated RBC % PT with INR INR PTT (Actin FS) Fibrinogen ABG pCO2 at Pt Temp 27.9 L ABG HCO3 16.3 L ABG O2 Content 7.3 L* ABG Base Excess -7.7 L Potassium 3.0 L Carbon Dioxide 18 L Anion Gap 19 H BUN 48 H Creatinine 1.8 H Random Glucose 66 L Magnesium 1.7 L Total Bilirubin 8.2 H Direct Bilirubin 6.4 H AST 85 H Alkaline Phosphatase 661 H Total Protein 5.7 L Albumin 2.1 L Active Medications Generic Name Dose Route Start Last Admin Trade Name Freq PRN Reason Stop Dose Admin Acetaminophen 1,000 mg 07/02/18 04:52 Ofirmev Injection - IVPB Q6H PRN FEVER Ascorbic Acid 500 mg 06/13/18 22:00 07/10/18 10:03 Vitamin C - PO 500 mg BID JEF Administration Collagenase 1 applic 07/08/18 10:00 07/10/18 10:05 Santyl - TP 1 applic DAILY JEF Administration Protocol Cyanocobalamin 1,000 mcg 07/10/18 14:45 Vitamin B12 - PO DAILY JEF Doxycycline Hyclate 100 mg 06/18/18 18:00 07/10/18 10:03 Vibramycin - PO 100 mg BID@1000,1800 JEF Administration Folic Acid 1 mg 06/15/18 10:00 07/10/18 10:02 Folic Acid - PO 1 mg DAILY JEF Administration IV Flush 8 ml 06/21/18 09:17 Picc Line Flush IVPUSH PRN PRN Protocol Propofol 1,000,000 mcg in 100 mls @ 1.902 mls/hr 07/03/18 22:00 07/04/18 09: 27 Diprivan - IVPB 20 mcg/kg/min TITR JEF 7.608 mls/hr Administration Protocol 5 MCG/KG/MIN Norepinephrine Bitartrate 8, 250 mls @ 9.37 mls/hr 07/04/18 11:08 07/10/18 10 :09 000 mcg/ Sodium Chloride IV 3.2 mcg/min TITR JEF 6 mls/hr Titration Protocol 5 MCG/MIN Vasopressin 50 units/ Sodium 100 mls @ 4 mls/hr 07/08/18 10:15 07/10/18 09:46 Chloride IVPB 2 units/hr ASDIR JEF 4 mls/hr Titration Protocol 2 UNITS/HR Metronidazole 500 mg in 100 mls @ 100 mls/hr 07/08/18 18:00 07/10/18 10:02 Flagyl 500mg Premixed Ivpb - IVPB 100 mls/hr Q8H-IV JEF Administration Iron Sucrose 100 mg/ Sodium 100 mls @ 200 mls/hr 07/10/18 14:31 Chloride IVPB 07/10/18 15:00 ONCE ONE Insulin Aspart 1 vial 07/03/18 07:00 07/10/18 11:30 Novolog Vial Sliding Scale - SQ Not Given TIDAC JEF Protocol Lactobacillus Acidophilus 1 tab 07/07/18 11:15 07/10/18 10:01 Bacid - PO 1 tab DAILY JEF Administration Multi-Ingredient Ointment 1 applic 06/13/18 22:00 07/10/18 10:06 Zinc Oxide TP 1 applic BID JEF Administration Ranitidine HCl 150 mg 07/06/18 10:00 07/10/18 10:02 Zantac - PO 150 mg BID JEF Administration Sodium Chloride 1 gm 07/02/18 16:50 07/10/18 10:05 Sodium Chloride Tablet - PO 1 gm BID JEF Administration Vancomycin HCl 125 mg 07/08/18 18:00 07/10/18 13:00 Vancomycin Oral Solution PO 125 mg Q6HPO JEF Administration Zinc Sulfate 220 mg 06/21/18 10:00 07/10/18 10:02 Orazinc - PO 220 mg DAILY JEF Administration A/P 72 y/o patient with presumed metastatic pancreatic cancer based on imaging/ tumor markers, extensive liver mets, vertebral lesions, also jehovahs witness, fialure to thrive, s/p PEG, now with sepsis, DIC, renal failure Falling platelets, coagulopathy, anemia due to septic chock multiorgan failure DIC/sepsis/JORDAN copagulopathy-- patients health care proxy is refusing platelets/FFP thrombocytopenia--[id number] anemia--on folate/ptrocrit--SC and iv on dayso f dialysis will redose iron h/o CVA /h/o residual rt. ssided weakness rediscussed with health care proxy , overall very poor prognosis, presumed diagnosis of metastatic cancer, sepsis/JORDAN. Rediscussed blood products which she does not want at this time. She will look into the possibility of him taking cryoprecipitate but will not take PRBCs/FFP/platelets. continue procrit at dialysis. discussed that procrit could cause progression of tumor/ prothrombotic complications she is still insistent on nutritional support and full supportive care
[2018-07-12] MEDS: VANCOMYCIN 250 MG/5 ML ORAL SOLUTION PO SCH ×4 (06:16→18:25)
[2018-07-12] MEDS: INSULIN SLIDING SCALE (NOVOLOG) 1 VIAL SQ SCH ×3 (06:16→16:34)
[2018-07-12 06:33] LABS: HEMATOCRIT 19.4 % (35.4-49); MCH 27.6 pg (25.7-33.7); MCHC 29.1 g/dl (32.0-35.9); MEAN CELL VOLUME 94.7 fl (80-96); MEAN PLT VOLUME 8.8 fl (7.5-11.1); RBC 2.05 M/mm3 (4.00-5.60); RDW 23.1 % (11.9-15.9); WHITE BLOOD COUNT 21.1 K/mm3 (4.0-10.0)
[2018-07-12 06:57] LABS: INR 2.39 (0.83-1.09); PROTHROMBIN TIME (PATIENT) 28.5 SEC (9.7-13.0)
[2018-07-12 06:59] LABS: ACTIVATED PTT 52.4 SECONDS (25.2-36.5)
[2018-07-12 07:06] LABS: HEMOGLOBIN 5.7 GM/dL (11.7-16.9)
[2018-07-12 07:07] LABS: PLATELET COUNT 36 K/MM3 (134-434)
[2018-07-12 08:00] LABS: ALBUMIN 1.7 g/dl (3.4-5.0); ALK PHOS 513 U/L (45-117); ANION GAP 19 MMOL/L (8-16); BILIRUBIN,TOTAL 7.9 mg/dL (0.2-1); BLOOD UREA NITROGEN 64 mg/dL (7-18); CALCIUM 7.7 mg/dL (8.5-10.1); CHLORIDE 107 mmol/L (98-107); CO2 16 mmol/L (21-32); CREATININE 2.6 mg/dL (0.55-1.3); GLUCOSE,RANDOM 56 mg/dL (74-106); PHOSPHOROUS 3.8 mg/dL (2.5-4.9); POTASSIUM 3.5 mmol/L (3.5-5.1); SGOT/AST 155 U/L (15-37); SGPT/ALT 16 U/L (13-61); SODIUM 143 mmol/L (136-145); TOT PROT 5.8 g/dl (6.4-8.2)
--- NOTE | 2018-07-12 08:29 | PN ---
Progress Note, Physician - Current Medication List Current Medications: Active Medications Acetaminophen (Ofirmev Injection -) 1,000 mg IVPB Q6H PRN PRN Reason: FEVER Last Admin: 07/11/18 12:48 Dose: 1,000 mg Ascorbic Acid (Vitamin C -) 500 mg PO BID JEF Last Admin: 07/11/18 21:25 Dose: 500 mg Collagenase (Santyl -) 1 applic TP DAILY JEF; Protocol Last Admin: 07/11/18 10:30 Dose: 1 applic Cyanocobalamin (Vitamin B12 -) 1,000 mcg PO DAILY JEF Last Admin: 07/11/18 10:28 Dose: 1,000 mcg Doxycycline Hyclate (Vibramycin -) 100 mg PO BID@1000,1800 JEF Last Admin: 07/11/18 17:56 Dose: 100 mg Folic Acid (Folic Acid -) 1 mg PO DAILY JEF Last Admin: 07/11/18 10:29 Dose: 1 mg IV Flush (Picc Line Flush) 8 ml IVPUSH PRN PRN PRN Reason: Protocol Propofol (Diprivan -) 1,000,000 mcg in 100 mls @ 1.902 mls/hr IVPB TITR JEF; Protocol Last Admin: 07/04/18 09:27 Dose: 20 mcg/kg/min, 7.608 mls/hr Norepinephrine Bitartrate 8, (000 mcg/ Sodium Chloride) 250 mls @ 9.37 mls/hr IV TITR JEF; Protocol Last Admin: 07/11/18 12:30 Dose: 2.13 mcg/min, 4 mls/hr Vasopressin 50 units/ Sodium (Chloride) 100 mls @ 4 mls/hr IVPB ASDIR JEF; Protocol Last Admin: 07/11/18 10:15 Dose: Not Given Metronidazole (Flagyl 500mg Premixed Ivpb -) 500 mg in 100 mls @ 100 mls/hr IVPB Q8H-IV JEF Last Admin: 07/12/18 02:00 Dose: 100 mls/hr Insulin Aspart (Novolog Vial Sliding Scale -) 1 vial SQ TIDAC [facility]; Protocol Last Admin: 07/12/18 06:16 Dose: Not Given Lactobacillus Acidophilus (Bacid -) 1 tab PO DAILY JEF Last Admin: 07/11/18 10:28 Dose: 1 tab Multi-Ingredient Ointment (Zinc Oxide) 1 applic TP BID [facility] Last Admin: 07/11/18 21:26 Dose: 1 applic Ranitidine HCl (Zantac -) 150 mg PO BID [facility] Last Admin: 07/11/18 21:25 Dose: 150 mg Sodium Chloride (Sodium Chloride Tablet -) 1 gm PO BID [facility] Last Admin: 07/11/18 21:24 Dose: 1 gm Vancomycin HCl (Vancomycin Oral Solution) 125 mg PO Q6HPO [facility] Last Admin: 07/12/18 06:16 Dose: 125 mg Zinc Sulfate (Orazinc -) 220 mg PO DAILY [facility] Last Admin: 07/11/18 10:38 Dose: 220 mg - Objective Vital Signs: Vital Signs Temperature 98 F 07/12/18 06:00 Pulse Rate 97 H 07/12/18 07:55 Respiratory Rate 35 H 07/12/18 07:55 Blood Pressure 103/44 L 07/12/18 07:55 O2 Sat by Pulse Oximetry (%) 100 07/12/18 07:55 Cardiovascular: Yes: S1, S2 Respiratory: Yes: Mechanically Ventilated Gastrointestinal: Yes: Normal Bowel Sounds, Soft Labs: CBC, BMP 07/12/18 05:30 07/12/18 05:30 INR, PTT INR 2.39 (0.83-1.09) H 07/12/18 05:30 Fibrinogen < 100.0 mg/dL (238-498) L* D 07/12/18 05:30 Problem List - Problems (1) Acute respiratory failure with hypoxia Code(s): J96.01 - ACUTE RESPIRATORY FAILURE WITH HYPOXIA (2) Metabolic encephalopathy Code(s): G93.41 - METABOLIC ENCEPHALOPATHY (3) 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 (4) Sacral decubitus ulcer Code(s): L89.159 - PRESSURE ULCER OF SACRAL REGION, UNSPECIFIED STAGE (5) Hyponatremia Code(s): E87.1 - HYPO-OSMOLALITY AND HYPONATREMIA (6) Sepsis Code(s): A41.9 - SEPSIS, UNSPECIFIED ORGANISM Qualifiers: Sepsis type: sepsis due to unspecified organism Qualified Code(s): A41.9 - Sepsis, unspecified organism (7) Anemia Code(s): D64.9 - ANEMIA, UNSPECIFIED Qualifiers: Anemia type: unspecified type Qualified Code(s): D64.9 - Anemia, unspecified Assessment/Plan - Problems (1) JORDAN (acute kidney injury) Assessment/Plan: plan for HD per renal cath placed Code(s): N17.9 - ACUTE KIDNEY FAILURE, UNSPECIFIED (2) Sacral decubitus ulcer Assessment/Plan: wound care Code(s): L89.159 - PRESSURE ULCER OF SACRAL REGION, UNSPECIFIED STAGE (3) Anemia Assessment/Plan: refusing blood transfusion- jehovah witness procrit given Code(s): D64.9 - ANEMIA, UNSPECIFIED (4) Abnormal liver enzymes Assessment/Plan: abdominal MRI report- innumerable hepatic lesions,thoracic and lumbar lesion suscipicious for metastatic disease \ Code(s): R74.8 - ABNORMAL LEVELS OF OTHER SERUM ENZYMES (5) Bacteremia Assessment/Plan: Abx per Id Orders 06/18/18 18:00 Doxycycline Hyclate [Vibramycin -] 100 mg PO BID@1000,1800 07/08/18 18:00 Vancomycin Oral Solution 125 mg PO Q6HPO metroNIDAZOLE 500 MG PREMIXED [Flagyl 500Mg Premixed Ivpb -] 500 mg in 100 ml IVPB Q8H-IV Microbiology 07/08/18 08:15 Blood - Peripheral Venous Blood Culture - Preliminary NO GROWTH OBTAINED AFTER 24 HOURS, INCUBATION TO CONTINUE FOR 4 DAYS. 07/04/18 15:50 Blood - Peripheral Venous Blood Culture - Preliminary NO GROWTH OBTAINED AFTER 96 HOURS, INCUBATION TO CONTINUE FOR 1 DAYS. 07/04/18 15:15 Blood - Peripheral Venous Blood Culture - Preliminary NO GROWTH OBTAINED AFTER 96 HOURS, INCUBATION TO CONTINUE FOR 1 DAYS. 07/04/18 14:37 Sputum - Endotrachea Suction/Ventilator Gram Stain - Final 07/04/18 14:37 Sputum - Endotrachea Suction/Ventilator Sputum Culture - Final Yeast Like Organism 06/14/18 06:40 Blood - Peripheral Venous Blood Culture - Final NO GROWTH AFTER 5 DAYS INCUBATION 06/14/18 07:00 Blood - Peripheral Venous Blood Culture - Final NO GROWTH AFTER 5 DAYS INCUBATION 06/12/18 17:22 Decubiti Gram Stain - Final 06/12/18 17:22 Decubiti Wound Culture - Final Mr S Aureus Vr Ec Faecalis Proteus Mirabilis 06/12/18 17:22 Blood - Peripheral Venous Blood Culture - Final Escherichia Coli [employer] 06/12/18 17:10 Blood - Peripheral Venous Blood Culture - Final Escherichia Coli [employer] 06/12/18 09:20 Urine - Urine - Catheterized Urine Culture - Final Proteus Mirabilis Code(s): R78.81 - BACTEREMIA (6) Hyponatremia Assessment/Plan: renal on board monitor Code(s): E87.1 - HYPO-OSMOLALITY AND HYPONATREMIA (7) Sepsis Assessment/Plan: icu on vent intubated as above Code(s): A41.9 - SEPSIS, UNSPECIFIED ORGANISM Qualifiers: Sepsis type: sepsis due to unspecified organism Qualified Code(s): A41.9 - Sepsis, unspecified organism Prognosis poor DR BELL NOTE APPRECIATED HCP (RICHY) WANTS EVERYTHING DONE TO KEEP THIS PATIENT ALIVE. ETHICS CONSULT WAS CALLED TO DISCUSS THE DECISION MAKING AND THE MENTAL COMPETENCE OF RICHY AND THE HOSPITAL STAFF ALL FEELS AT THIS POINT THAT RICHY IS NOT THINKING CLEARLY. WE HAVE CALLED CLERGY AND PALLIATIVE CARE TEAM TO DISCUSS WITH RICHY THAT MR GROSS IS SEVERELY ILL WITH END STAGE ORGAN FAILURE, METASTATIC CANCER, PANCYTOPENIA, SEVERE SKIN ULCERS, MALNUTRITION AND SEPSIS. RICHY IS ONLY FOCUSED ON FEEDING MR GROSS AND AT THIS POINT BEING HE IS UNRESPONSIVE AND WITH A FTUBE THEIR STILL IS A RISK OF ASPIRATIONS AND WE CAN DO HARM INSTEAD OF GOOD FOR THE PATIENT. ICU TEAM IS DOING EVERYTHING TO KEEP MR GROSS ALIVE WITH ALL RESPIRATORY, CARDIAC SUPPORT AND WE WILL CONTINUE THIS. F/U LABS REFUSED PRBC TRANSFUSIONS AND ON ABX HD PER RENAL CLERGY CONSULT APPRECIATED
[2018-07-12] MEDS ORDERED: PT OWN MED DRAWER 7, Y5N ONE (08:52)
[2018-07-12] MEDS: ACETAMINOPHEN 1000 MG/100 ML VIAL (NON FORMULARY) IVPB PRN (08:53)
[2018-07-12] MEDS: FOLIC ACID 1 MG TABLET (FP) PO SCH (09:28)
[2018-07-12] MEDS: LACTOBACILLUS ACIDOPHILUS 1 TABLET PO SCH (09:28)
[2018-07-12] MEDS: DOXYCYCLINE HYCLATE 100 MG CAPSULE PO SCH (09:28)
[2018-07-12] MEDS: RANITIDINE HCL 150 MG TABLET (FP) PO SCH ×2 (09:28→21:53)
[2018-07-12] MEDS: CYANOCOBALAMIN 1,000 MCG TABLET (FP) PO SCH (09:28)
[2018-07-12] MEDS: SODIUM CHLORIDE 1 GM TABLET PO SCH (09:29)
[2018-07-12] MEDS: ASCORBIC ACID 500 MG TABLET (FP) PO SCH ×2 (09:29→21:53)
[2018-07-12] MEDS: ZINC SULFATE 220 MG CAPSULE (FP) PO SCH (09:30)
[2018-07-12] MEDS: ZINC OXIDE 20% TOPICAL OINTMENT 30 GM TUBE TP SCH ×2 (11:15→21:53)
--- NOTE | 2018-07-12 12:17 | PN ---
Progress Note, Physician History of Present Illness: continues top be intubated talks going on for further mgmt prognosis remains futile as HCP does not want lot of things to be done - Current Medication List Current Medications: Active Medications Acetaminophen (Ofirmev Injection -) 1,000 mg IVPB Q6H PRN PRN Reason: FEVER Last Admin: 07/12/18 08:53 Dose: 1,000 mg Ascorbic Acid (Vitamin C -) 500 mg PO BID JEF Last Admin: 07/12/18 09:29 Dose: 500 mg Collagenase (Santyl -) 1 applic TP DAILY JEF; Protocol Last Admin: 07/11/18 10:30 Dose: 1 applic Cyanocobalamin (Vitamin B12 -) 1,000 mcg PO DAILY JEF Last Admin: 07/12/18 09:28 Dose: 1,000 mcg Folic Acid (Folic Acid -) 1 mg PO DAILY JEF Last Admin: 07/12/18 09:28 Dose: 1 mg IV Flush (Picc Line Flush) 8 ml IVPUSH PRN PRN PRN Reason: Protocol Propofol (Diprivan -) 1,000,000 mcg in 100 mls @ 1.902 mls/hr IVPB TITR JEF; Protocol Last Admin: 07/04/18 09:27 Dose: 20 mcg/kg/min, 7.608 mls/hr Norepinephrine Bitartrate 8, (000 mcg/ Sodium Chloride) 250 mls @ 9.37 mls/hr IV TITR JEF; Protocol Last Admin: 07/11/18 12:30 Dose: 2.13 mcg/min, 4 mls/hr Vasopressin 50 units/ Sodium (Chloride) 100 mls @ 4 mls/hr IVPB ASDIR JEF; Protocol Last Admin: 07/11/18 10:15 Dose: Not Given Metronidazole (Flagyl 500mg Premixed Ivpb -) 500 mg in 100 mls @ 100 mls/hr IVPB Q8H-IV JEF Last Admin: 07/12/18 09:29 Dose: 100 mls/hr Insulin Aspart (Novolog Vial Sliding Scale -) 1 vial SQ TIDAC [facility]; Protocol Last Admin: 07/12/18 06:16 Dose: Not Given Lactobacillus Acidophilus (Bacid -) 1 tab PO DAILY JEF Last Admin: 07/12/18 09:28 Dose: 1 tab Multi-Ingredient Ointment (Zinc Oxide) 1 applic TP BID JEF Last Admin: 07/12/18 11:15 Dose: 1 applic Ranitidine HCl (Zantac -) 150 mg PO BID [facility] Last Admin: 07/12/18 09:28 Dose: 150 mg Sodium Chloride (Sodium Chloride Tablet -) 1 gm PO BID [facility] Last Admin: 07/12/18 09:29 Dose: 1 gm Vancomycin HCl (Vancomycin Oral Solution) 125 mg PO Q6HPO [facility] Last Admin: 07/12/18 06:16 Dose: 125 mg Zinc Sulfate (Orazinc -) 220 mg PO DAILY [facility] Last Admin: 07/12/18 09:30 Dose: 220 mg - Objective Vital Signs: Vital Signs Temperature 102.3 F H 07/12/18 10:00 Pulse Rate 100 H 07/12/18 08:41 Respiratory Rate 33 H 07/12/18 11:52 Blood Pressure 127/65 07/12/18 08:41 O2 Sat by Pulse Oximetry (%) 100 07/12/18 07:55 Constitutional: Yes: Other Cardiovascular: Yes: Pulse Irregular Respiratory: Yes: Intubated, Mechanically Ventilated Gastrointestinal: Yes: Normal Bowel Sounds, Soft Musculoskeletal: Yes: WNL Extremities: Yes: Other Neurological: Yes: Other Labs: CBC, BMP 07/12/18 05:30 07/12/18 05:30 INR, PTT INR 2.39 (0.83-1.09) H 07/12/18 05:30 Fibrinogen < 100.0 mg/dL (238-498) L* D 07/12/18 05:30 Assessment/Plan roble List - Problems (1) Liver lesion Code(s): K76.9 - LIVER DISEASE, UNSPECIFIED (2) 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 (3) Abnormal liver enzymes Code(s): R74.8 - ABNORMAL LEVELS OF OTHER SERUM ENZYMES (4) Sacral decubitus ulcer, stage IV Code(s): L89.154 - PRESSURE ULCER OF SACRAL REGION, STAGE 4 (5) Sepsis Code(s): A41.9 - SEPSIS, UNSPECIFIED ORGANISM Qualifiers: Sepsis type: sepsis due to unspecified organism Qualified Code(s): A41.9 - Sepsis, unspecified organism (6) Anemia Code(s): D64.9 - ANEMIA, UNSPECIFIED (7) Bacteremia Code(s): R78.81 - BACTEREMIA (8) Fever Code(s): R50.9 - FEVER, UNSPECIFIED Qualifiers: Fever type: unspecified Qualified Code(s): R50.9 - Fever, unspecified (9) Basilic vein thrombosis Code(s): I82.619 - ACUTE EMBOLISM AND THROMBOSIS OF SUPERFIC VN UNSP UP EXTREM plan continue doxy if patient detoriates if hcp wants will broaden coverage suctioning rest as per icu nutrition resp support as per gi patients prognosis is poor discussed again for quite some time with HCP have told her that chances are slim to none of his survival cc 38 min
--- NOTE | 2018-07-12 12:36 | PN ---
Teaching Attending Note Name of Resident: Serge Maza ATTENDING PHYSICIAN STATEMENT I saw and evaluated the patient. I reviewed the resident's note and discussed the case with the resident. I agree with the resident's findings and plan as documented. SUBJECTIVE: Patient seen and examined in the ICU. Remains intubated, minimally responsive ( off sedation for several days). Increasing jaundice. Remains on NE and Vasopressin for hemodynamic support. AC mode of vent, 35% FiO2. OBJECTIVE: Intake & Output 07/09/18 07/10/18 07/11/18 07/12/18 23:59 23:59 23:59 23:59 Intake Total 955 812 300 452.8 Output Total 10 150 30 10 Balance 945 662 270 442.8 Weight 150 lb 3 oz 150 lb 3 oz 150 lb 3 oz 152 lb 6.4 oz Last Vital Signs Temp Pulse Resp BP Pulse Ox 102.3 F H 100 H 33 H 127/65 100 07/12/18 10:00 07/12/18 08:41 07/12/18 11:52 07/12/18 08:41 07/12/18 07:55 Active Medications Acetaminophen (Ofirmev Injection -) 1,000 mg IVPB Q6H PRN PRN Reason: FEVER Last Admin: 07/12/18 08:53 Dose: 1,000 mg Ascorbic Acid (Vitamin C -) 500 mg PO BID JEF Last Admin: 07/12/18 09:29 Dose: 500 mg Collagenase (Santyl -) 1 applic TP DAILY JEF; Protocol Last Admin: 07/11/18 10:30 Dose: 1 applic Cyanocobalamin (Vitamin B12 -) 1,000 mcg PO DAILY JEF Last Admin: 07/12/18 09:28 Dose: 1,000 mcg Folic Acid (Folic Acid -) 1 mg PO DAILY JEF Last Admin: 07/12/18 09:28 Dose: 1 mg IV Flush (Picc Line Flush) 8 ml IVPUSH PRN PRN PRN Reason: Protocol Propofol (Diprivan -) 1,000,000 mcg in 100 mls @ 1.902 mls/hr IVPB TITR JEF; Protocol Last Admin: 07/04/18 09:27 Dose: 20 mcg/kg/min, 7.608 mls/hr Norepinephrine Bitartrate 8, (000 mcg/ Sodium Chloride) 250 mls @ 9.37 mls/hr IV TITR JEF; Protocol Last Admin: 07/11/18 12:30 Dose: 2.13 mcg/min, 4 mls/hr Vasopressin 50 units/ Sodium (Chloride) 100 mls @ 4 mls/hr IVPB ASDIR [facility]; Protocol Last Admin: 07/11/18 10:15 Dose: Not Given Metronidazole (Flagyl 500mg Premixed Ivpb -) 500 mg in 100 mls @ 100 mls/hr IVPB Q8H-IV JEF Last Admin: 07/12/18 09:29 Dose: 100 mls/hr Insulin Aspart (Novolog Vial Sliding Scale -) 1 vial SQ TIDAC [facility]; Protocol Last Admin: 07/12/18 06:16 Dose: Not Given Lactobacillus Acidophilus (Bacid -) 1 tab PO DAILY [facility] Last Admin: 07/12/18 09:28 Dose: 1 tab Multi-Ingredient Ointment (Zinc Oxide) 1 applic TP BID [facility] Last Admin: 07/12/18 11:15 Dose: 1 applic Ranitidine HCl (Zantac -) 150 mg PO BID [facility] Last Admin: 07/12/18 09:28 Dose: 150 mg Sodium Chloride (Sodium Chloride Tablet -) 1 gm PO BID [facility] Last Admin: 07/12/18 09:29 Dose: 1 gm Vancomycin HCl (Vancomycin Oral Solution) 125 mg PO Q6HPO [facility] Last Admin: 07/12/18 06:16 Dose: 125 mg Zinc Sulfate (Orazinc -) 220 mg PO DAILY [facility] Last Admin: 07/12/18 09:30 Dose: 220 mg Gen: intubated, minimally responsive, jaundiced Heart: tachycardic, irregular Lung: bilateral rhonchi Abd: soft, nontender Ext: + edema Laboratory Results - last 24 hr 07/11/18 07/11/18 07/11/18 05:50 12:03 16:37 WBC RBC Hgb Hct MCV MCH MCHC RDW Plt Count MPV PT with INR INR PTT (Actin FS) Fibrinogen Sodium Potassium Chloride Carbon Dioxide Anion Gap BUN Creatinine Creat Clearance w eGFR POC Glucometer 78.76124 95.33695 77.19656 Random Glucose Calcium Phosphorus Magnesium Total Bilirubin AST ALT Alkaline Phosphatase Total Protein Albumin 07/12/18 07/12/18 07/12/18 05:28 05:30 05:30 WBC 21.1 H RBC 2.05 L Hgb 5.7 L* Hct 19.4 L MCV 94.7 D MCH 27.6 MCHC 29.1 L RDW 23.1 H Plt Count 36 L* MPV 8.8 PT with INR INR PTT (Actin FS) Fibrinogen < 100.0 L* D Sodium Potassium Chloride Carbon Dioxide Anion Gap BUN Creatinine Creat Clearance w eGFR POC Glucometer 82.32526 Random Glucose Calcium Phosphorus Magnesium Total Bilirubin AST ALT Alkaline Phosphatase Total Protein Albumin 07/12/18 07/12/18 07/12/18 05:30 05:30 08:36 WBC RBC Hgb Hct MCV MCH MCHC RDW Plt Count MPV PT with INR 28.50 H INR 2.39 H PTT (Actin FS) 52.4 H Fibrinogen Sodium 143 Potassium 3.5 Chloride 107 Carbon Dioxide 16 L Anion Gap 19 H BUN 64 H Creatinine 2.6 H Creat Clearance w eGFR 24.25 POC Glucometer 81.38871 Random Glucose 56 L Calcium 7.7 L Phosphorus 3.8 Magnesium 2.0 Total Bilirubin 7.9 H AST 155 H ALT 16 Alkaline Phosphatase 513 H Total Protein 5.8 L Albumin 1.7 L 07/12/18 10:49 WBC RBC Hgb Hct MCV MCH MCHC RDW Plt Count MPV PT with INR INR PTT (Actin FS) Fibrinogen Sodium Potassium Chloride Carbon Dioxide Anion Gap BUN Creatinine Creat Clearance w eGFR POC Glucometer 108.82670 Random Glucose Calcium Phosphorus Magnesium Total Bilirubin AST ALT Alkaline Phosphatase Total Protein Albumin ASSESSMENT AND PLAN: Acute Hypoxic Respiratory Failure Pneumonia likely Aspiration Septic Shock Acute Kidney Injury Volume Overload Metabolic Acidosis Thrombocytopenia Suspect Metastatic Disease Hyponatremia CAD HTN DM Hyperlipidemia Dementia Anemia Moravian - ABX per ID - HD per renal - monitor urine output, creatinine - titrate pressors to maintain MAP >65 - continue salt tabs - monitor lytes - enteral feeds - DVT/GI prophylaxis - HCP unrealistic about patient's condition/outcome: ideally should be comfort care - continue ICU monitoring Dr Bermudez Critical care time spent in reviewing chart, evaluating patient and formulating plan 35 min
[2018-07-12] MEDS ORDERED: SODIUM CHLORIDE 250 ML IV PRN (13:21)
[2018-07-12] MEDS ORDERED: EPOETIN ALFA 20,000 UNIT/1 ML VIAL IVPUSH ONE (13:21)
--- NOTE | 2018-07-12 13:21 | PN ---
Progress Note, Physician History of Present Illness: Pt seen and examined at bedside. He remains in the ICU. He is still not making urine. - Current Medication List Current Medications: Active Medications Acetaminophen (Ofirmev Injection -) 1,000 mg IVPB Q6H PRN PRN Reason: FEVER Last Admin: 07/12/18 08:53 Dose: 1,000 mg Ascorbic Acid (Vitamin C -) 500 mg PO BID JEF Last Admin: 07/12/18 09:29 Dose: 500 mg Collagenase (Santyl -) 1 applic TP DAILY JEF; Protocol Last Admin: 07/11/18 10:30 Dose: 1 applic Cyanocobalamin (Vitamin B12 -) 1,000 mcg PO DAILY JEF Last Admin: 07/12/18 09:28 Dose: 1,000 mcg Folic Acid (Folic Acid -) 1 mg PO DAILY JEF Last Admin: 07/12/18 09:28 Dose: 1 mg IV Flush (Picc Line Flush) 8 ml IVPUSH PRN PRN PRN Reason: Protocol Propofol (Diprivan -) 1,000,000 mcg in 100 mls @ 1.902 mls/hr IVPB TITR JEF; Protocol Last Admin: 07/04/18 09:27 Dose: 20 mcg/kg/min, 7.608 mls/hr Norepinephrine Bitartrate 8, (000 mcg/ Sodium Chloride) 250 mls @ 9.37 mls/hr IV TITR JEF; Protocol Last Admin: 07/11/18 12:30 Dose: 2.13 mcg/min, 4 mls/hr Vasopressin 50 units/ Sodium (Chloride) 100 mls @ 4 mls/hr IVPB ASDIR JEF; Protocol Last Admin: 07/11/18 10:15 Dose: Not Given Metronidazole (Flagyl 500mg Premixed Ivpb -) 500 mg in 100 mls @ 100 mls/hr IVPB Q8H-IV JEF Last Admin: 07/12/18 09:29 Dose: 100 mls/hr Insulin Aspart (Novolog Vial Sliding Scale -) 1 vial SQ TIDAC JEF; Protocol Last Admin: 07/12/18 06:16 Dose: Not Given Lactobacillus Acidophilus (Bacid -) 1 tab PO DAILY JEF Last Admin: 07/12/18 09:28 Dose: 1 tab Multi-Ingredient Ointment (Zinc Oxide) 1 applic TP BID JFE Last Admin: 07/12/18 11:15 Dose: 1 applic Ranitidine HCl (Zantac -) 150 mg PO BID [facility] Last Admin: 07/12/18 09:28 Dose: 150 mg Sodium Chloride (Sodium Chloride Tablet -) 1 gm PO BID [facility] Last Admin: 07/12/18 09:29 Dose: 1 gm Vancomycin HCl (Vancomycin Oral Solution) 125 mg PO Q6HPO [facility] Last Admin: 07/12/18 06:16 Dose: 125 mg Zinc Sulfate (Orazinc -) 220 mg PO DAILY [facility] Last Admin: 07/12/18 09:30 Dose: 220 mg - Objective Vital Signs: Vital Signs Temperature 102.3 F H 07/12/18 10:00 Pulse Rate 98 H 07/12/18 12:00 Respiratory Rate 28 H 07/12/18 12:00 Blood Pressure 109/51 L 07/12/18 12:00 O2 Sat by Pulse Oximetry (%) 100 07/12/18 07:55 Constitutional: Yes: Calm Eyes: Yes: Conjunctiva Clear HENT: Yes: Atraumatic Cardiovascular: Yes: S1, S2 Respiratory: Yes: Mechanically Ventilated Gastrointestinal: Yes: Soft Genitourinary: Yes: [place] Present, Oliguria Edema: Yes Edema: LUE: 2+, RUE: 2+, LLE: 2+, RLE: 2+ Neurological: Yes: Lethargy Labs: CBC, BMP 07/12/18 05:30 07/12/18 05:30 INR, PTT INR 2.39 (0.83-1.09) H 07/12/18 05:30 Fibrinogen < 100.0 mg/dL (238-498) L* D 07/12/18 05:30 - ....Imaging Chest X-ray: Report Reviewed Problem List - Problems (1) JORDAN (acute kidney injury) Code(s): N17.9 - ACUTE KIDNEY FAILURE, UNSPECIFIED (2) Hyponatremia Code(s): E87.1 - HYPO-OSMOLALITY AND HYPONATREMIA Assessment/Plan Current Medications Generic Name Dose Route Start Last Admin Trade Name Freq PRN Reason Stop Dose Admin Acetaminophen 1,000 mg 07/02/18 04:52 07/12/18 08:53 Ofirmev Injection - IVPB 1,000 mg Q6H PRN Administration FEVER Ascorbic Acid 500 mg 06/13/18 22:00 07/12/18 09:29 Vitamin C - PO 500 mg BID JEF Administration Collagenase 1 applic 07/08/18 10:00 07/11/18 10:30 Santyl - TP 1 applic DAILY JEF Administration Protocol Cyanocobalamin 1,000 mcg 07/10/18 14:45 07/12/18 09:28 Vitamin B12 - PO 1,000 mcg DAILY JEF Administration Folic Acid 1 mg 06/15/18 10:00 07/12/18 09:28 Folic Acid - PO 1 mg DAILY JEF Administration IV Flush 8 ml 06/21/18 09:17 Picc Line Flush IVPUSH PRN PRN Protocol Propofol 1,000,000 mcg in 100 mls @ 1.902 mls/hr 07/03/18 22:00 07/04/18 09: 27 Diprivan - IVPB 20 mcg/kg/min TITR JEF 7.608 mls/hr Administration Protocol 5 MCG/KG/MIN Norepinephrine Bitartrate 8, 250 mls @ 9.37 mls/hr 07/04/18 11:08 07/11/18 12 :30 000 mcg/ Sodium Chloride IV 2.13 mcg/min TITR JEF 4 mls/hr Administration Protocol 5 MCG/MIN Vasopressin 50 units/ Sodium 100 mls @ 4 mls/hr 07/08/18 10:15 07/11/18 10:15 Chloride IVPB Not Given ASDIR JEF Protocol 2 UNITS/HR Metronidazole 500 mg in 100 mls @ 100 mls/hr 07/08/18 18:00 07/12/18 09:29 Flagyl 500mg Premixed Ivpb - IVPB 100 mls/hr Q8H-IV JEF Administration Insulin Aspart 1 vial 07/03/18 07:00 07/12/18 06:16 Novolog Vial Sliding Scale - SQ Not Given TIDAC [facility] Protocol Lactobacillus Acidophilus 1 tab 07/07/18 11:15 07/12/18 09:28 Bacid - PO 1 tab DAILY JEF Administration Multi-Ingredient Ointment 1 applic 06/13/18 22:00 07/12/18 11:15 Zinc Oxide TP 1 applic BID JEF Administration Ranitidine HCl 150 mg 07/06/18 10:00 07/12/18 09:28 Zantac - PO 150 mg BID JEF Administration Sodium Chloride 1 gm 07/02/18 16:50 07/12/18 09:29 Sodium Chloride Tablet - PO 1 gm BID JEF Administration Vancomycin HCl 125 mg 07/08/18 18:00 07/12/18 06:16 Vancomycin Oral Solution PO 125 mg Q6HPO JEF Administration Zinc Sulfate 220 mg 06/21/18 10:00 07/12/18 09:30 Orazinc - PO 220 mg DAILY JEF Administration Impression 1. hyponatremia 2. JORDAN 3. resp failure s/p intubation 4. possible liver mets 5. s/p peg 6. s/p sepsis 7. CAD 8. HTN 9. hyperlipidemia 10. parkinsons 11. DM 12. anemia Plan - d/c salt tabs - will arrange for HD today - family meeting tomorrow/ethics committee to discuss GOC - vent support - pt is clinically doing poorly - pressors for map of 65 - vent support - will follow - minimize fluid intake - discussed with family at length Dr Coe
[2018-07-12] MEDS: COLLAGENASE CLOSTRIDIUM HIST. 30 GRAMS TUBE TP SCH (14:12)
[2018-07-12] MEDS: NOREPINEPHRINE BITARTRATE IV SCH (14:13)
[2018-07-12] MEDS: SODIUM CHLORIDE IV SCH (14:13)
[2018-07-12] MEDS: VASOPRESSIN 50 UNITS in SODIUM CHLORIDE 97.5 ML IVPB SCH ×2 (14:15→15:47)
[2018-07-12] MEDS: ALBUMIN HUMAN 25% 12.5 GM/50 ML VIAL IVPB SCH ×4 (15:30→17:34)
--- NOTE | 2018-07-12 15:33 | PN ---
Physical Exam: SUBJECTIVE: Patient seen and examined at bedside. Remains intubated, minimally responsive (off sedation for several days). Remains on pressors for hemodynamic support. 35% FiO2. pt spike fever today despite being on abx, cx obtained OBJECTIVE: Vital Signs Period Temp Pulse Resp BP Sys/Prado Pulse Ox Last 24 Hr 98 F-102.3 F 89-102 22-95 88-127/44-65 97-100 GENERAL: off sedation, intubated, minimally responsive. HEENT: NC/AT NECK: supple, trachea midline LUNGS: diffusely coarse breath sounds HEART: tachycardic irregular no m/r/g ABDOMEN: hypoactive bowel sounds, soft, PEG in place MUSCULOSKELETAL: No bony deformities EXTREMITIES: 1+ pulses, weeping edema throughout NEUROLOGICAL: GCS 2 (eyes open to pain, intubated, negligible motor response to pain), corneal reflex not assessed but noted to be absent in ICU intake evaluation SKIN: Chronic sacral decub ulcer stage 4 with low volume bloody drainage, tunneling, eschar formation; jaundice throughout and worsening Laboratory Results - last 24 hr 07/11/18 07/12/18 07/12/18 16:37 05:28 05:30 WBC RBC Hgb Hct MCV MCH MCHC RDW Plt Count MPV PT with INR INR PTT (Actin FS) Fibrinogen < 100.0 L* D Sodium Potassium Chloride Carbon Dioxide Anion Gap BUN Creatinine Creat Clearance w eGFR POC Glucometer 77.48641 82.68192 Random Glucose Calcium Phosphorus Magnesium Total Bilirubin AST ALT Alkaline Phosphatase Total Protein Albumin 07/12/18 07/12/18 07/12/18 05:30 05:30 05:30 WBC 21.1 H RBC 2.05 L Hgb 5.7 L* Hct 19.4 L MCV 94.7 D MCH 27.6 MCHC 29.1 L RDW 23.1 H Plt Count 36 L* MPV 8.8 PT with INR 28.50 H INR 2.39 H PTT (Actin FS) 52.4 H Fibrinogen Sodium 143 Potassium 3.5 Chloride 107 Carbon Dioxide 16 L Anion Gap 19 H BUN 64 H Creatinine 2.6 H Creat Clearance w eGFR 24.25 POC Glucometer Random Glucose 56 L Calcium 7.7 L Phosphorus 3.8 Magnesium 2.0 Total Bilirubin 7.9 H AST 155 H ALT 16 Alkaline Phosphatase 513 H Total Protein 5.8 L Albumin 1.7 L 07/12/18 07/12/18 08:36 10:49 WBC RBC Hgb Hct MCV MCH MCHC RDW Plt Count MPV PT with INR INR PTT (Actin FS) Fibrinogen Sodium Potassium Chloride Carbon Dioxide Anion Gap BUN Creatinine Creat Clearance w eGFR POC Glucometer 81.49722 108.92013 Random Glucose Calcium Phosphorus Magnesium Total Bilirubin AST ALT Alkaline Phosphatase Total Protein Albumin Active Medications Generic Name Dose Route Start Last Admin Trade Name Freq PRN Reason Stop Dose Admin Acetaminophen 1,000 mg 07/02/18 04:52 07/12/18 08:53 Ofirmev Injection - IVPB 1,000 mg Q6H PRN Administration FEVER Albumin Human 12.5 gm 07/12/18 13:30 Albumin Human 25% IVPB Q30M JEF Ascorbic Acid 500 mg 06/13/18 22:00 07/12/18 09:29 Vitamin C - PO 500 mg BID JEF Administration Collagenase 1 applic 07/08/18 10:00 07/12/18 14:12 Santyl - TP 1 applic DAILY JEF Administration Protocol Cyanocobalamin 1,000 mcg 07/10/18 14:45 07/12/18 09:28 Vitamin B12 - PO 1,000 mcg DAILY JEF Administration Folic Acid 1 mg 06/15/18 10:00 07/12/18 09:28 Folic Acid - PO 1 mg DAILY JEF Administration IV Flush 8 ml 06/21/18 09:17 Picc Line Flush IVPUSH PRN PRN Protocol Propofol 1,000,000 mcg in 100 mls @ 1.902 mls/hr 07/03/18 22:00 07/04/18 09: 27 Diprivan - IVPB 20 mcg/kg/min TITR JEF 7.608 mls/hr Administration Protocol 5 MCG/KG/MIN Norepinephrine Bitartrate 8, 250 mls @ 9.37 mls/hr 07/04/18 11:08 07/12/18 14 :13 000 mcg/ Sodium Chloride IV Not Given TITR JEF Protocol 5 MCG/MIN Vasopressin 50 units/ Sodium 100 mls @ 4 mls/hr 07/08/18 10:15 07/12/18 14:15 Chloride IVPB Not Given ASDIR JEF Protocol 2 UNITS/HR Metronidazole 500 mg in 100 mls @ 100 mls/hr 07/08/18 18:00 07/12/18 09:29 Flagyl 500mg Premixed Ivpb - IVPB 100 mls/hr Q8H-IV JEF Administration Sodium Chloride 250 mls @ 3,000 mls/hr 07/12/18 13:21 Normal Saline - IV 07/13/18 13:21 PRN PRN Hypotension during Dialysis Insulin Aspart 1 vial 07/03/18 07:00 07/12/18 14:15 Novolog Vial Sliding Scale - SQ Not Given TIDAC [facility] Protocol Lactobacillus Acidophilus 1 tab 07/07/18 11:15 07/12/18 09:28 Bacid - PO 1 tab DAILY JEF Administration Multi-Ingredient Ointment 1 applic 06/13/18 22:00 07/12/18 11:15 Zinc Oxide TP 1 applic BID JEF Administration Ranitidine HCl 150 mg 07/06/18 10:00 07/12/18 09:28 Zantac - PO 150 mg BID JEF Administration Sodium Chloride 1 gm 07/02/18 16:50 07/12/18 09:29 Sodium Chloride Tablet - PO 1 gm BID JEF Administration Vancomycin HCl 125 mg 07/08/18 18:00 07/12/18 12:13 Vancomycin Oral Solution PO 125 mg Q6HPO JEF Administration Zinc Sulfate 220 mg 06/21/18 10:00 07/12/18 09:30 Orazinc - PO 220 mg DAILY JEF Administration ASSESSMENT/PLAN: 72 y/o M w/ PMH PD, CVA, HTN, HLD, IDDM, osteomyelitis, anemia, COPD, CAD, 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 Progno #heme-onc -AM Hb 5.7, Plt 36 -s/p procrit 20k 5d tx, no evidence of benefit in non-trauma critically ill patients -all coags elevated, fibrinogen low, DIC imminent -s/p vitamin K PO 5 day tx -widely metastatic disease, Ca 19-9 14k therefore likely pancreatic Ca, prognosis grave -GOC initiated with HCP -prognosis explained to HCP in detail, all questions asked and answered, continues to request all aggressive measures -HCP opposes blood products in light of latter day views but agrees to albumin ( a blood product) -having kimberlee hematochezia with diarrhea -Dr. Cobb consulted, recommends referral to RM for judicial action if ICU team believes HCP is acting contrary to best interests of patient - referral made, recs pending #neurologic -likely anoxic brain injury -GCS 2 -continue life support measures #pulmonary -aspiration noted during intubation -titrate vent for O2 sat > 90% #cardiac -septic shock, on levophed and vasopressin, titrate for MAP > 65 -avoid AV chris blocking agents -paroxysmal afib #renal -HD again today -nepro feeds as tolerated -cont NaCl 1g BID -remains acidotic -trend CMP #ID -pt spike fever 102.3 today 07/12/18 despite being on abx, new Bcx, Ucx, sputum cx obtained. Central line catheter may be a source, pt may require new cath to L side neck, weigh risk benefit of uncontrollable bleed or hematoma while pt in DIC vs worsening of sepsis and shock. HCP refusing platelets/FFP/ pRBC. Explained risks and benefits of putting in new catheter to HCP, consent obtained. Ideally INR <1.5 for line replacement, however must weigh risk/benefit -septic shock 2/2 UTI and chronic ulcer infection, maintain MAP 65 on pressors -WBC dec to 21 today -HCP disregarding ID antimicrobial recommendations and choosing agents selectively -currently on doxycycline, flagyl, PO vancomycin -blood, urine, sputum, fungal, stool cultures + C diff studies #GI -rising INR, total and direct bilirubin, alk phos -declining transaminases; likely worsening liver status with exhaustion of liver enzymes -worsening jaundice on clinical evaluation -ammonia wnl, neurologic issues therefore likely 2/2 anoxic injury -nepro feeds -trend LFTs, coags -previous episodes of diarrhea, C diff antigen pos, toxin neg 07/09/18, bacid -FOBT positive #integumentary -chronic infected stage IV decub ulcer now w/ bloody drainage and new tunneling -seen by Sx, wound care instructions implemented #FEN -no IVF -trend CMP -nepro feeds as tolerated #PPx -DVT: SCDs -GI: Zantac #dispo -monitor in ICU -prognosis poor/terminal -full code -HCP unrealistic about patient's condition/outcome: ideally should be comfort care -palliative on board, family meeting scheduled for tomorrow Visit type - Emergency Visit Emergency Visit: Yes ED Registration Date: 06/12/18 Care time: The patient presented to the Emergency Department on the above date and was hospitalized for further evaluation of their emergent condition. - New Patient This patient is new to me today: Yes Date on this admission: 07/12/18 - Critical Care Critical Care patient: Yes Total Critical Care Time (in minutes): 38 Critical Care Statement: The care of this patient involved high complexity decision making to prevent further life threatening deterioration of the patient 's condition and/or to evaluate & treat vital organ system(s) failure or risk of failure.
[2018-07-12] MEDS ORDERED: NOREPINEPHRINE BITARTRATE 4 MG/4 ML ML IV ONE (21:11)
--- NOTE | 2018-07-12 21:12 | CONSULT ---
Consult - text type - Consultation Consultation Note: NEUROLOGY CONSULTATION is greatly appreciated: Events reviewed and discussed with patient's cousin. This 72 yo S man with h/o DM, HTN, Chol, COPD ASHD, GERD and anemia was admitted 06/12 with decreased appetite and failure to thrive. Evaluation showed elevated LFT's and imaging showed multiple mets to the liver and many imaged bones. Pt had cognitive changes on admission and received psyche consultation. His level of consciousness gradually deteriorated with increasing jaundice, multiple infections and renal insufficiency. Now intubated and unresponsive off sedatives. WBC=21.1K; H/H=5.7/19.4; platelets=36k; INR=2.09; PTT=47.3; fibrinogen< 100; Alk Sxpj=067; Cr/BUN= 2.6/64. EXAM: Jaundiced. Neck supple. Neg Kernig's. Intubated. + spontaneous respirations. No response to sternal pressure. [id number]. Full EOM's to Doll's head. Sluggish corneals. No obvious facial asymmetry. Flaccid tetraplegia. Areflexic. No withdrawal to pain. IMP: Severe, B/L cerebral dysfunction No obvious asymmetry to suggest CVA or brain mets but exam does not allow exclusion of these complications. Suspect severe, multifactorial Toxic-Metabolic encephalopathy dominik. Hepatic and para-infectious. SUGGEST: Continue supportive care. Doubt benefits of neuroimaging at this juncture. Could repeat ammonia level but cachexia may cause it to be reduced Grave prognosis discussed with the cousin. Thank you very much, Anthony Carrera MD
[2018-07-13] MEDS ORDERED: NOREPINEPHRINE BITARTRATE 4 MG/4 ML ML IV ONE ×2 (04:45→04:48)
[2018-07-13] MEDS: VANCOMYCIN 250 MG/5 ML ORAL SOLUTION PO SCH ×3 (05:41→13:49)
[2018-07-13] MEDS: INSULIN SLIDING SCALE (NOVOLOG) 1 VIAL SQ SCH ×2 (06:10→13:50)
[2018-07-13 06:36] LABS: ARTERIAL BLOOD GAS PCO2 24.7 mmHg (35-45); ARTERIAL BLOOD GAS PO2 85.4 mmHg (70-100); ARTERIAL BLOOD GAS pH 7.36 (7.35-7.45)
[2018-07-13 06:42] LABS: ALLENS TEST POSITIVE
[2018-07-13 06:43] LABS: BASO % 0.7 % (0-2.0); EOS % 0.1 % (0-4.5); HEMATOCRIT 19.9 % (35.4-49); LYMPH % 13.1 % (8-40); MCH 28.1 pg (25.7-33.7); MCHC 28.3 g/dl (32.0-35.9); MEAN PLT VOLUME 8.9 fl (7.5-11.1); MONO % 4.4 % (3.8-10.2); NEUT % 81.7 % (42.8-82.8); RBC 2.01 M/mm3 (4.00-5.60); RDW 25.2 % (11.9-15.9); WHITE BLOOD COUNT 19.4 K/mm3 (4.0-10.0)
[2018-07-13 06:47] LABS: INR 3.04 (0.83-1.09); PROTHROMBIN TIME (PATIENT) 36.3 SEC (9.7-13.0)
[2018-07-13 06:47] LABS: ARTERIAL BLOOD GAS BASE EXCESS -10.6 meq/l (-2-2)
[2018-07-13 07:06] LABS: HEMOGLOBIN 5.6 GM/dL (11.7-16.9); PLATELET COUNT 30 K/MM3 (134-434)
[2018-07-13 07:33] LABS: ALBUMIN 1.8 g/dl (3.4-5.0); ALK PHOS 409 U/L (45-117); ANION GAP 18 MMOL/L (8-16); BILIRUBIN,TOTAL 8.1 mg/dL (0.2-1); BLOOD UREA NITROGEN 49 mg/dL (7-18); CALCIUM 7.8 mg/dL (8.5-10.1); CHLORIDE 108 mmol/L (98-107); CO2 16 mmol/L (21-32); CREATININE 2.3 mg/dL (0.55-1.3); GLUCOSE,RANDOM 103 mg/dL (74-106); POTASSIUM 3.2 mmol/L (3.5-5.1); SGOT/AST 121 U/L (15-37); SGPT/ALT 14 U/L (13-61); SODIUM 142 mmol/L (136-145); TOT PROT 5.6 g/dl (6.4-8.2)
--- NOTE | 2018-07-13 07:46 | PN ---
Progress Note, Physician - Current Medication List Current Medications: Active Medications Acetaminophen (Ofirmev Injection -) 1,000 mg IVPB Q6H PRN PRN Reason: FEVER Last Admin: 07/12/18 08:53 Dose: 1,000 mg Ascorbic Acid (Vitamin C -) 500 mg PO BID [facility] Last Admin: 07/12/18 21:53 Dose: 500 mg Collagenase (Santyl -) 1 applic TP DAILY [facility]; Protocol Last Admin: 07/12/18 14:12 Dose: 1 applic Cyanocobalamin (Vitamin B12 -) 1,000 mcg PO DAILY JEF Last Admin: 07/12/18 09:28 Dose: 1,000 mcg Folic Acid (Folic Acid -) 1 mg PO DAILY JEF Last Admin: 07/12/18 09:28 Dose: 1 mg IV Flush (Picc Line Flush) 8 ml IVPUSH PRN PRN PRN Reason: Protocol Norepinephrine Bitartrate 8, (000 mcg/ Sodium Chloride) 250 mls @ 9.37 mls/hr IV TITR JEF; Protocol Last Titration: 07/13/18 05:36 Dose: 15 mcg/min, 28.12 mls/hr Vasopressin 50 units/ Sodium (Chloride) 100 mls @ 4 mls/hr IVPB ASDIR JEF; Protocol Last Admin: 07/12/18 15:47 Dose: 2 units/hr, 4 mls/hr Metronidazole (Flagyl 500mg Premixed Ivpb -) 500 mg in 100 mls @ 100 mls/hr IVPB Q8H-IV JEF Last Admin: 07/13/18 02:00 Dose: 100 mls/hr Sodium Chloride (Normal Saline -) 250 mls @ 3,000 mls/hr IV PRN PRN PRN Reason: Hypotension during Dialysis Stop: 07/13/18 13:21 Insulin Aspart (Novolog Vial Sliding Scale -) 1 vial SQ TIDAC [facility]; Protocol Last Admin: 07/13/18 06:10 Dose: Not Given Lactobacillus Acidophilus (Bacid -) 1 tab PO DAILY [facility] Last Admin: 07/12/18 09:28 Dose: 1 tab Multi-Ingredient Ointment (Zinc Oxide) 1 applic TP BID [facility] Last Admin: 07/12/18 21:53 Dose: 1 applic Ranitidine HCl (Zantac -) 150 mg PO BID [facility] Last Admin: 07/12/18 21:53 Dose: 150 mg Vancomycin HCl (Vancomycin Oral Solution) 125 mg PO Q6HPO [facility] Last Admin: 07/13/18 05:41 Dose: 125 mg Zinc Sulfate (Orazinc -) 220 mg PO DAILY [facility] Last Admin: 07/12/18 09:30 Dose: 220 mg - Objective Vital Signs: Vital Signs Temperature 99.1 F 07/13/18 02:00 Pulse Rate 88 07/13/18 06:00 Respiratory Rate 30 H 07/13/18 06:54 Blood Pressure 105/65 07/13/18 06:00 O2 Sat by Pulse Oximetry (%) 100 07/12/18 20:24 Labs: CBC, BMP 07/13/18 05:30 07/13/18 05:30 INR, PTT INR 3.04 (0.83-1.09) H 07/13/18 05:30 Fibrinogen < 100.0 mg/dL (238-498) L* D 07/12/18 05:30 Problem List - Problems (1) Acute respiratory failure with hypoxia Code(s): J96.01 - ACUTE RESPIRATORY FAILURE WITH HYPOXIA (2) Metabolic encephalopathy Code(s): G93.41 - METABOLIC ENCEPHALOPATHY (3) 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 (4) Sacral decubitus ulcer Code(s): L89.159 - PRESSURE ULCER OF SACRAL REGION, UNSPECIFIED STAGE (5) Hyponatremia Code(s): E87.1 - HYPO-OSMOLALITY AND HYPONATREMIA (6) Sepsis Code(s): A41.9 - SEPSIS, UNSPECIFIED ORGANISM Qualifiers: Sepsis type: sepsis due to unspecified organism Qualified Code(s): A41.9 - Sepsis, unspecified organism (7) Anemia Code(s): D64.9 - ANEMIA, UNSPECIFIED Qualifiers: Anemia type: unspecified type Qualified Code(s): D64.9 - Anemia, unspecified
--- NOTE | 2018-07-13 08:39 | PN ---
Progress Note, Physician - Current Medication List Current Medications: Active Medications Acetaminophen (Ofirmev Injection -) 1,000 mg IVPB Q6H PRN PRN Reason: FEVER Last Admin: 07/12/18 08:53 Dose: 1,000 mg Ascorbic Acid (Vitamin C -) 500 mg PO BID [facility] Last Admin: 07/12/18 21:53 Dose: 500 mg Collagenase (Santyl -) 1 applic TP DAILY [facility]; Protocol Last Admin: 07/12/18 14:12 Dose: 1 applic Cyanocobalamin (Vitamin B12 -) 1,000 mcg PO DAILY [facility] Last Admin: 07/12/18 09:28 Dose: 1,000 mcg Folic Acid (Folic Acid -) 1 mg PO DAILY [facility] Last Admin: 07/12/18 09:28 Dose: 1 mg IV Flush (Picc Line Flush) 8 ml IVPUSH PRN PRN PRN Reason: Protocol Norepinephrine Bitartrate 8, (000 mcg/ Sodium Chloride) 250 mls @ 9.37 mls/hr IV TITR [facility]; Protocol Last Titration: 07/13/18 05:36 Dose: 15 mcg/min, 28.12 mls/hr Vasopressin 50 units/ Sodium (Chloride) 100 mls @ 4 mls/hr IVPB ASDIR [facility]; Protocol Last Admin: 07/12/18 15:47 Dose: 2 units/hr, 4 mls/hr Metronidazole (Flagyl 500mg Premixed Ivpb -) 500 mg in 100 mls @ 100 mls/hr IVPB Q8H-IV [facility] Last Admin: 07/13/18 02:00 Dose: 100 mls/hr Sodium Chloride (Normal Saline -) 250 mls @ 3,000 mls/hr IV PRN PRN PRN Reason: Hypotension during Dialysis Stop: 07/13/18 13:21 Insulin Aspart (Novolog Vial Sliding Scale -) 1 vial SQ TIDAC [facility]; Protocol Last Admin: 07/13/18 06:10 Dose: Not Given Lactobacillus Acidophilus (Bacid -) 1 tab PO DAILY [facility] Last Admin: 07/12/18 09:28 Dose: 1 tab Multi-Ingredient Ointment (Zinc Oxide) 1 applic TP BID [facility] Last Admin: 07/12/18 21:53 Dose: 1 applic Ranitidine HCl (Zantac -) 150 mg PO BID [facility] Last Admin: 07/12/18 21:53 Dose: 150 mg Vancomycin HCl (Vancomycin Oral Solution) 125 mg PO Q6HPO [facility] Last Admin: 07/13/18 05:41 Dose: 125 mg Zinc Sulfate (Orazinc -) 220 mg PO DAILY [facility] Last Admin: 07/12/18 09:30 Dose: 220 mg - Objective Vital Signs: Vital Signs Temperature 99.1 F 07/13/18 02:00 Pulse Rate 92 H 07/13/18 08:00 Respiratory Rate 36 H 07/13/18 08:30 Blood Pressure 101/54 L 07/13/18 08:00 O2 Sat by Pulse Oximetry (%) 99 07/13/18 08:30 Cardiovascular: Yes: S1, S2 Respiratory: Yes: Mechanically Ventilated Neurological: Yes: Unresponsive Labs: CBC, BMP 07/13/18 05:30 07/13/18 05:30 INR, PTT INR 3.04 (0.83-1.09) H 07/13/18 05:30 Fibrinogen < 100.0 mg/dL (238-498) L* D 07/12/18 05:30 Problem List - Problems (1) Acute respiratory failure with hypoxia Code(s): J96.01 - ACUTE RESPIRATORY FAILURE WITH HYPOXIA (2) Metabolic encephalopathy Code(s): G93.41 - METABOLIC ENCEPHALOPATHY (3) 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 (4) Sacral decubitus ulcer Code(s): L89.159 - PRESSURE ULCER OF SACRAL REGION, UNSPECIFIED STAGE (5) Hyponatremia Code(s): E87.1 - HYPO-OSMOLALITY AND HYPONATREMIA (6) Sepsis Code(s): A41.9 - SEPSIS, UNSPECIFIED ORGANISM Qualifiers: Sepsis type: sepsis due to unspecified organism Qualified Code(s): A41.9 - Sepsis, unspecified organism (7) Anemia Code(s): D64.9 - ANEMIA, UNSPECIFIED Qualifiers: Anemia type: unspecified type Qualified Code(s): D64.9 - Anemia, unspecified Assessment/Plan - Problems (1) JORDAN (acute kidney injury) Assessment/Plan: plan for HD per renal cath placed Code(s): N17.9 - ACUTE KIDNEY FAILURE, UNSPECIFIED (2) Sacral decubitus ulcer Assessment/Plan: wound care Code(s): L89.159 - PRESSURE ULCER OF SACRAL REGION, UNSPECIFIED STAGE (3) Anemia Assessment/Plan: refusing blood transfusion- jehovah witness procrit given Code(s): D64.9 - ANEMIA, UNSPECIFIED (4) Abnormal liver enzymes Assessment/Plan: abdominal MRI report- innumerable hepatic lesions,thoracic and lumbar lesion suscipicious for metastatic disease \ Code(s): R74.8 - ABNORMAL LEVELS OF OTHER SERUM ENZYMES (5) Bacteremia Assessment/Plan: Abx per Id Orders 06/18/18 18:00 Doxycycline Hyclate [Vibramycin -] 100 mg PO BID@1000,1800 07/08/18 18:00 Vancomycin Oral Solution 125 mg PO Q6HPO metroNIDAZOLE 500 MG PREMIXED [Flagyl 500Mg Premixed Ivpb -] 500 mg in 100 ml IVPB Q8H-IV [facility] 07/08/18 08:15 Blood - Peripheral Venous Blood Culture - Preliminary NO GROWTH OBTAINED AFTER 24 HOURS, INCUBATION TO CONTINUE FOR 4 DAYS. 07/04/18 15:50 Blood - Peripheral Venous Blood Culture - Preliminary NO GROWTH OBTAINED AFTER 96 HOURS, INCUBATION TO CONTINUE FOR 1 DAYS. 07/04/18 15:15 Blood - Peripheral Venous Blood Culture - Preliminary NO GROWTH OBTAINED AFTER 96 HOURS, INCUBATION TO CONTINUE FOR 1 DAYS. 07/04/18 14:37 Sputum - Endotrachea Suction/Ventilator Gram Stain - Final 07/04/18 14:37 Sputum - Endotrachea Suction/Ventilator Sputum Culture - Final Yeast Like Organism 06/14/18 06:40 Blood - Peripheral Venous Blood Culture - Final NO GROWTH AFTER 5 DAYS INCUBATION 06/14/18 07:00 Blood - Peripheral Venous Blood Culture - Final NO GROWTH AFTER 5 DAYS INCUBATION 06/12/18 17:22 Decubiti Gram Stain - Final 06/12/18 17:22 Decubiti Wound Culture - Final Mr S Aureus Vr Ec Faecalis Proteus Mirabilis 06/12/18 17:22 Blood - Peripheral Venous Blood Culture - Final Escherichia Coli Esbl Art Supervisor 06/12/18 17:10 Blood - Peripheral Venous Blood Culture - Final Escherichia Coli Esbl Art Supervisor 06/12/18 09:20 Urine - Urine - Catheterized Urine Culture - Final Proteus Mirabilis Code(s): R78.81 - BACTEREMIA (6) Hyponatremia Assessment/Plan: renal on board monitor Code(s): E87.1 - HYPO-OSMOLALITY AND HYPONATREMIA (7) Sepsis Assessment/Plan: icu on vent intubated as above Code(s): A41.9 - SEPSIS, UNSPECIFIED ORGANISM Qualifiers: Sepsis type: sepsis due to unspecified organism Qualified Code(s): A41.9 - Sepsis, unspecified organism Prognosis poor DR BELL NOTE APPRECIATED HCP (RICHY) WANTS EVERYTHING DONE TO KEEP THIS PATIENT ALIVE. ETHICS CONSULT WAS CALLED TO DISCUSS THE DECISION MAKING AND THE MENTAL COMPETENCE OF RICHY AND THE HOSPITAL STAFF ALL FEELS AT THIS POINT THAT RICHY IS NOT THINKING CLEARLY. WE HAVE CALLED CLERGY AND PALLIATIVE CARE TEAM TO DISCUSS WITH RICHY THAT MR GROSS IS SEVERELY ILL WITH END STAGE ORGAN FAILURE, METASTATIC CANCER, PANCYTOPENIA, SEVERE SKIN ULCERS, MALNUTRITION AND SEPSIS. RICHY IS ONLY FOCUSED ON FEEDING MR GROSS AND AT THIS POINT BEING HE IS UNRESPONSIVE AND WITH A FTUBE THEIR STILL IS A RISK OF ASPIRATIONS AND WE CAN DO HARM INSTEAD OF GOOD FOR THE PATIENT. ICU TEAM IS DOING EVERYTHING TO KEEP MR GROSS ALIVE WITH ALL RESPIRATORY, CARDIAC SUPPORT AND WE WILL CONTINUE THIS. F/U LABS REFUSED PRBC TRANSFUSIONS AND ON ABX HD PER RENAL CLERGY CONSULT APPRECIATED
[2018-07-13] MEDS ORDERED: POTASSIUM CHLORIDE TABS 20 MEQ TABLET.ER (FP) PO ONE (09:37)
[2018-07-13] MEDS: ZINC SULFATE 220 MG CAPSULE (FP) PO SCH (10:15)
[2018-07-13] MEDS: LACTOBACILLUS ACIDOPHILUS 1 TABLET PO SCH (10:15)
[2018-07-13] MEDS: COLLAGENASE CLOSTRIDIUM HIST. 30 GRAMS TUBE TP SCH (10:15)
[2018-07-13] MEDS: FOLIC ACID 1 MG TABLET (FP) PO SCH (10:15)
[2018-07-13] MEDS: ASCORBIC ACID 500 MG TABLET (FP) PO SCH (10:15)
[2018-07-13] MEDS ORDERED: PT OWN MED DRAWER 7, Y5N ONE (10:19)
[2018-07-13] MEDS: RANITIDINE HCL 150 MG TABLET (FP) PO SCH (10:20)
[2018-07-13] MEDS: ZINC OXIDE 20% TOPICAL OINTMENT 30 GM TUBE TP SCH (10:20)
[2018-07-13] MEDS: CYANOCOBALAMIN 1,000 MCG TABLET (FP) PO SCH (10:20)
[2018-07-13 11:23] LABS: ANISOCYTOSIS 3+; MACROCYTOSIS 1+; PLATELET ESTIMATE DECREASED; TEAR DROP CELLS 1+
--- NOTE | 2018-07-13 12:38 | PN ---
Teaching Attending Note Name of Resident: Peter Head ATTENDING PHYSICIAN STATEMENT I saw and evaluated the patient. I reviewed the resident's note and discussed the case with the resident. I agree with the resident's findings and plan as documented. SUBJECTIVE: Patient seen and examined in the ICU. Remains intubated, minimally responsive ( off sedation for several days). Increasing jaundice. Increasing NE requirements to 15 mcq today for hemodynamic support. AC mode of vent, 35% FiO2. OBJECTIVE: Intake & Output 07/10/18 07/11/18 07/12/18 07/13/18 23:59 23:59 23:59 23:59 Intake Total 812 300 452.8 1002 Output Total 150 30 10 Balance 662 270 442.8 1002 Weight 150 lb 3 oz 150 lb 3 oz 152 lb 6.4 oz 154 lb 1.6 oz Last Vital Signs Temp Pulse Resp BP Pulse Ox 99.5 F 89 38 H 104/55 L 99 07/13/18 10:00 07/13/18 10:00 07/13/18 10:00 07/13/18 10:00 07/13/18 08:30 Active Medications Acetaminophen (Ofirmev Injection -) 1,000 mg IVPB Q6H PRN PRN Reason: FEVER Last Admin: 07/12/18 08:53 Dose: 1,000 mg Ascorbic Acid (Vitamin C -) 500 mg PO BID [facility] Last Admin: 07/13/18 10:15 Dose: 500 mg Collagenase (Santyl -) 1 applic TP DAILY [facility]; Protocol Last Admin: 07/13/18 10:15 Dose: 1 applic Cyanocobalamin (Vitamin B12 -) 1,000 mcg PO DAILY [facility] Last Admin: 07/13/18 10:20 Dose: 1,000 mcg Folic Acid (Folic Acid -) 1 mg PO DAILY [facility] Last Admin: 07/13/18 10:15 Dose: 1 mg IV Flush (Picc Line Flush) 8 ml IVPUSH PRN PRN PRN Reason: Protocol Norepinephrine Bitartrate 8, (000 mcg/ Sodium Chloride) 250 mls @ 9.37 mls/hr IV TITR [facility]; Protocol Last Titration: 07/13/18 05:36 Dose: 15 mcg/min, 28.12 mls/hr Vasopressin 50 units/ Sodium (Chloride) 100 mls @ 4 mls/hr IVPB ASDIR [facility]; Protocol Last Admin: 07/12/18 15:47 Dose: 2 units/hr, 4 mls/hr Metronidazole (Flagyl 500mg Premixed Ivpb -) 500 mg in 100 mls @ 100 mls/hr IVPB Q8H-IV [facility] Last Admin: 07/13/18 10:15 Dose: 100 mls/hr Sodium Chloride (Normal Saline -) 250 mls @ 3,000 mls/hr IV PRN PRN PRN Reason: Hypotension during Dialysis Stop: 07/13/18 13:21 Insulin Aspart (Novolog Vial Sliding Scale -) 1 vial SQ TIDAC [facility]; Protocol Last Admin: 07/13/18 06:10 Dose: Not Given Lactobacillus Acidophilus (Bacid -) 1 tab PO DAILY [facility] Last Admin: 07/13/18 10:15 Dose: 1 tab Multi-Ingredient Ointment (Zinc Oxide) 1 applic TP BID [facility] Last Admin: 07/13/18 10:20 Dose: 1 applic Ranitidine HCl (Zantac -) 150 mg PO BID [facility] Last Admin: 07/13/18 10:20 Dose: 150 mg Vancomycin HCl (Vancomycin Oral Solution) 125 mg PO Q6HPO [facility] Last Admin: 07/13/18 05:41 Dose: 125 mg Zinc Sulfate (Orazinc -) 220 mg PO DAILY [facility] Last Admin: 07/13/18 10:15 Dose: 220 mg Gen: intubated, minimally responsive, jaundiced Heart: tachycardic, irregular Lung: bilateral rhonchi Abd: soft, nontender Ext: + edema Laboratory Results - last 24 hr 07/12/18 07/13/18 07/13/18 16:03 05:30 05:30 WBC 19.4 H RBC 2.01 L Hgb 5.6 L* Hct 19.9 L MCV 99.0 H MCH 28.1 MCHC 28.3 L RDW 25.2 H Plt Count 30 L* MPV 8.9 Absolute Neuts (auto) 15.8 H Neutrophils % 81.7 Lymphocytes % 13.1 Monocytes % 4.4 Eosinophils % 0.1 Basophils % 0.7 D Nucleated RBC % 6 H Hypochromia 1+ Platelet Estimate Decreased Polychromasia 2+ Poikilocytosis 1+ Anisocytosis 3+ Microcytosis 1+ Macrocytosis 1+ Tear Drop Cells 1+ Schistocytes 1+ PT with INR 36.30 H INR 3.04 H PTT (Actin FS) 56.0 H Anticoagulation Therapy Puncture Site ABG pH ABG pCO2 at Pt Temp ABG pO2 at Pt Temp ABG HCO3 ABG O2 Sat (Measured) ABG O2 Content ABG Base Excess Aly Test O2 Delivery Device Oxygen Flow Rate Vent Mode Vent Rate Mechanical Rate PEEP Pressure Support Vent Sodium Potassium Chloride Carbon Dioxide Anion Gap BUN Creatinine Creat Clearance w eGFR POC Glucometer 155.05238 Random Glucose Calcium Total Bilirubin AST ALT Alkaline Phosphatase Total Protein Albumin 07/13/18 07/13/18 05:30 06:00 WBC RBC Hgb Hct MCV MCH MCHC RDW Plt Count MPV Absolute Neuts (auto) Neutrophils % Lymphocytes % Monocytes % Eosinophils % Basophils % Nucleated RBC % Hypochromia Platelet Estimate Polychromasia Poikilocytosis Anisocytosis Microcytosis Macrocytosis Tear Drop Cells Schistocytes PT with INR INR PTT (Actin FS) Anticoagulation Therapy No Result Required. Puncture Site Left radial ABG pH 7.36 ABG pCO2 at Pt Temp 24.7 L ABG pO2 at Pt Temp 85.4 ABG HCO3 13.5 L* ABG O2 Sat (Measured) 96.0 ABG O2 Content 10.0 L ABG Base Excess -10.6 L* Aly Test Positive O2 Delivery Device Vent Oxygen Flow Rate 35% Vent Mode No Result Required. Vent Rate 400 Mechanical Rate No Result Required. PEEP 5.0 Pressure Support Vent No Result Required. Sodium 142 Potassium 3.2 L Chloride 108 H Carbon Dioxide 16 L Anion Gap 18 H BUN 49 H Creatinine 2.3 H Creat Clearance w eGFR 27.93 POC Glucometer Random Glucose 103 Calcium 7.8 L Total Bilirubin 8.1 H AST 121 H ALT 14 Alkaline Phosphatase 409 H Total Protein 5.6 L Albumin 1.8 L ASSESSMENT AND PLAN: Acute Hypoxic Respiratory Failure Pneumonia likely Aspiration Septic Shock Acute Kidney Injury Volume Overload Metabolic Acidosis Thrombocytopenia Suspect Metastatic Disease Hyponatremia CAD HTN DM Hyperlipidemia Dementia Anemia Nondenominational - ABX per ID - HD per renal - monitor urine output, creatinine - titrate pressors to maintain MAP >65 - continue salt tabs - monitor lytes - enteral feeds - DVT/GI prophylaxis - HCP unrealistic about patient's condition/outcome: ideally should be comfort care - continue ICU monitoring - Family meeting scheduled for today Dr Bermudez Critical care time spent in reviewing chart, evaluating patient and formulating plan 35 min
--- NOTE | 2018-07-13 13:00 | PN ---
Physical Exam: SUBJECTIVE: Patient seen and examined at bedside. Remains intubated, minimally responsive (off sedation for several days). Remains on pressors for hemodynamic support. 35% FiO2. afebrile overnight. 1 run of v-tach and couple of NS-VT. HD yesterday. levophed increased to 15mc OBJECTIVE: Vital Signs Period Temp Pulse Resp BP Sys/Prado Pulse Ox Last 24 Hr 99.1 F-101.3 F 88-128 14-40 87-130/44-65 99-100 GENERAL: off sedation, intubated, minimally responsive. HEENT: NC/AT NECK: supple, trachea midline LUNGS: diffusely coarse breath sounds HEART: tachycardic irregular no m/r/g ABDOMEN: hypoactive bowel sounds, soft, PEG in place MUSCULOSKELETAL: No bony deformities EXTREMITIES: 1+ pulses, weeping edema throughout NEUROLOGICAL: GCS 2 (eyes open to pain, intubated, negligible motor response to pain), corneal reflex not assessed but noted to be absent in ICU intake evaluation SKIN: Chronic sacral decub ulcer stage 4 with low volume bloody drainage, tunneling, eschar formation; jaundice throughout and worsening Laboratory Results - last 24 hr 07/12/18 07/13/18 07/13/18 16:03 05:30 05:30 WBC 19.4 H RBC 2.01 L Hgb 5.6 L* Hct 19.9 L MCV 99.0 H MCH 28.1 MCHC 28.3 L RDW 25.2 H Plt Count 30 L* MPV 8.9 Absolute Neuts (auto) 15.8 H Neutrophils % 81.7 Lymphocytes % 13.1 Monocytes % 4.4 Eosinophils % 0.1 Basophils % 0.7 D Nucleated RBC % 6 H Hypochromia 1+ Platelet Estimate Decreased Polychromasia 2+ Poikilocytosis 1+ Anisocytosis 3+ Microcytosis 1+ Macrocytosis 1+ Tear Drop Cells 1+ Schistocytes 1+ PT with INR 36.30 H INR 3.04 H PTT (Actin FS) 56.0 H Anticoagulation Therapy Puncture Site ABG pH ABG pCO2 at Pt Temp ABG pO2 at Pt Temp ABG HCO3 ABG O2 Sat (Measured) ABG O2 Content ABG Base Excess Aly Test O2 Delivery Device Oxygen Flow Rate Vent Mode Vent Rate Mechanical Rate PEEP Pressure Support Vent Sodium Potassium Chloride Carbon Dioxide Anion Gap BUN Creatinine Creat Clearance w eGFR POC Glucometer 155.33498 Random Glucose Calcium Total Bilirubin AST ALT Alkaline Phosphatase Total Protein Albumin 07/13/18 07/13/18 05:30 06:00 WBC RBC Hgb Hct MCV MCH MCHC RDW Plt Count MPV Absolute Neuts (auto) Neutrophils % Lymphocytes % Monocytes % Eosinophils % Basophils % Nucleated RBC % Hypochromia Platelet Estimate Polychromasia Poikilocytosis Anisocytosis Microcytosis Macrocytosis Tear Drop Cells Schistocytes PT with INR INR PTT (Actin FS) Anticoagulation Therapy No Result Required. Puncture Site Left radial ABG pH 7.36 ABG pCO2 at Pt Temp 24.7 L ABG pO2 at Pt Temp 85.4 ABG HCO3 13.5 L* ABG O2 Sat (Measured) 96.0 ABG O2 Content 10.0 L ABG Base Excess -10.6 L* Aly Test Positive O2 Delivery Device Vent Oxygen Flow Rate 35% Vent Mode No Result Required. Vent Rate 400 Mechanical Rate No Result Required. PEEP 5.0 Pressure Support Vent No Result Required. Sodium 142 Potassium 3.2 L Chloride 108 H Carbon Dioxide 16 L Anion Gap 18 H BUN 49 H Creatinine 2.3 H Creat Clearance w eGFR 27.93 POC Glucometer Random Glucose 103 Calcium 7.8 L Total Bilirubin 8.1 H AST 121 H ALT 14 Alkaline Phosphatase 409 H Total Protein 5.6 L Albumin 1.8 L Active Medications Generic Name Dose Route Start Last Admin Trade Name Freq PRN Reason Stop Dose Admin Acetaminophen 1,000 mg 07/02/18 04:52 07/12/18 08:53 Ofirmev Injection - IVPB 1,000 mg Q6H PRN Administration FEVER Ascorbic Acid 500 mg 06/13/18 22:00 07/13/18 10:15 Vitamin C - PO 500 mg BID [facility] Administration Collagenase 1 applic 07/08/18 10:00 07/13/18 10:15 Santyl - TP 1 applic DAILY [facility] Administration Protocol Cyanocobalamin 1,000 mcg 07/10/18 14:45 07/13/18 10:20 Vitamin B12 - PO 1,000 mcg DAILY [facility] Administration Folic Acid 1 mg 06/15/18 10:00 07/13/18 10:15 Folic Acid - PO 1 mg DAILY [facility] Administration IV Flush 8 ml 06/21/18 09:17 Picc Line Flush IVPUSH PRN PRN Protocol Norepinephrine Bitartrate 8, 250 mls @ 9.37 mls/hr 07/04/18 11:08 07/13/18 05 :36 000 mcg/ Sodium Chloride IV 15 mcg/min TITR [facility]EF 28.12 mls/hr Titration Protocol 5 MCG/MIN Vasopressin 50 units/ Sodium 100 mls @ 4 mls/hr 07/08/18 10:15 07/12/18 15:47 Chloride IVPB 2 units/hr ASDIR [facility] 4 mls/hr Administration Protocol 2 UNITS/HR Metronidazole 500 mg in 100 mls @ 100 mls/hr 07/08/18 18:00 07/13/18 10:15 Flagyl 500mg Premixed Ivpb - IVPB 100 mls/hr Q8H-IV [facility] Administration Sodium Chloride 250 mls @ 3,000 mls/hr 07/12/18 13:21 Normal Saline - IV 07/13/18 13:21 PRN PRN Hypotension during Dialysis Insulin Aspart 1 vial 07/03/18 07:00 07/13/18 06:10 Novolog Vial Sliding Scale - SQ Not Given TIDAC [facility] Protocol Lactobacillus Acidophilus 1 tab 07/07/18 11:15 07/13/18 10:15 Bacid - PO 1 tab DAILY [facility] Administration Multi-Ingredient Ointment 1 applic 06/13/18 22:00 07/13/18 10:20 Zinc Oxide TP 1 applic BID [facility] Administration Ranitidine HCl 150 mg 07/06/18 10:00 07/13/18 10:20 Zantac - PO 150 mg BID [facility] Administration Vancomycin HCl 125 mg 07/08/18 18:00 07/13/18 05:41 Vancomycin Oral Solution PO 125 mg Q6HPO [facility] Administration Zinc Sulfate 220 mg 06/21/18 10:00 07/13/18 10:15 Orazinc - PO 220 mg DAILY [facility] Administration ASSESSMENT/PLAN: 72 y/o M w/ PMH PD, CVA, HTN, HLD, IDDM, osteomyelitis, anemia, COPD, CAD, 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 Prognosis poor. #heme-onc -AM Hb 5.6, Plt 30 -s/p procrit 20k 5d tx, no evidence of benefit in non-trauma critically ill patients -all coags elevated, fibrinogen low, DIC imminent -s/p vitamin K PO 5 day tx -widely metastatic disease, Ca 19-9 14k therefore likely pancreatic Ca, prognosis grave -GOC initiated with HCP -prognosis explained to HCP in detail, all questions asked and answered, continues to request all aggressive measures -HCP opposes blood products in light of temple views but agrees to albumin ( a blood product) -having kimberlee hematochezia with diarrhea -Dr. Cobb consulted, recommends referral to RM for judicial action if ICU team believes HCP is acting contrary to best interests of patient -RM referral made, recs pending #neurologic -likely anoxic brain injury -GCS 2 -continue life support measures #pulmonary -aspiration noted during intubation -titrate vent for O2 sat > 90% #cardiac -septic shock, on levophed and vasopressin, titrate for MAP > 65 -levo increased to 15 overnight, may need to consider giving vasopressin w/ hydro and fludro cortisone to help maintain MAP. -overnight 1 run of v-tach and couple of NS-VT may be 2/2 fluid shift from HD or /and mild hypo K, will replete K -avoid AV chris blocking agents -paroxysmal afib #renal -HD yesterday -nepro feeds as tolerated -cont NaCl 1g BID -remains acidotic -trend CMP #ID -pt afebrile overnight, blood/urine cultures neg, sputum yeast like org, same as previous sputum cx. -CXR 07/13/18 may show some questionable L basilar infiltrate, may be a source of fever. -pt had fever 102.3 on 07/12/18 despite being on abx, new Bcx, Ucx, sputum cx were obtained. Central line catheter may be a source, pt may require new cath to L side neck, weigh risk benefit of uncontrollable bleed or hematoma while pt in DIC vs worsening of sepsis and shock. HCP refusing platelets/FFP/pRBC. Explained risks and benefits of putting in new catheter to HCP, consent obtained. Ideally INR <1.5 for line replacement, however must weigh risk/ benefit. -septic shock 2/2 UTI and chronic ulcer infection, maintain MAP 65 on pressors -WBC dec to 19.4 today -HCP disregarding ID antimicrobial recommendations and choosing agents selectively -currently on doxycycline, flagyl, PO vancomycin -blood, urine, sputum, fungal, stool cultures + C diff studies #GI -rising INR, total and direct bilirubin, alk phos -declining transaminases; likely worsening liver status with exhaustion of liver enzymes -worsening jaundice on clinical evaluation -ammonia wnl, neurologic issues therefore likely 2/2 anoxic injury -nepro feeds -trend LFTs, coags -previous episodes of diarrhea, C diff antigen pos, toxin neg 07/09/18, bacid -FOBT positive #integumentary -chronic infected stage IV decub ulcer now w/ bloody drainage and new tunneling -seen by Sx, wound care instructions implemented #FEN -no IVF -trend CMP, replete lytes prn -nepro feeds as tolerated #PPx -DVT: SCDs -GI: Zantac #dispo -monitor in ICU -prognosis poor/terminal -full code -HCP unrealistic about patient's condition/outcome: ideally should be comfort care -palliative on board, family meeting today, will explain prognosis and discuss GOC Visit type - Emergency Visit Emergency Visit: Yes ED Registration Date: 06/12/18 Care time: The patient presented to the Emergency Department on the above date and was hospitalized for further evaluation of their emergent condition. - New Patient This patient is new to me today: Yes Date on this admission: 07/13/18 - Critical Care Critical Care patient: Yes Total Critical Care Time (in minutes): 37 Critical Care Statement: The care of this patient involved high complexity decision making to prevent further life threatening deterioration of the patient 's condition and/or to evaluate & treat vital organ system(s) failure or risk of failure.
[2018-07-13] MEDS: NOREPINEPHRINE BITARTRATE IV SCH (13:50)
[2018-07-13] MEDS: SODIUM CHLORIDE IV SCH (13:50)
--- NOTE | 2018-07-13 14:42 | PN ---
Progress Note, Physician History of Present Illness: remains in icu,intubated family deciding what to do - Current Medication List Current Medications: Active Medications Acetaminophen (Ofirmev Injection -) 1,000 mg IVPB Q6H PRN PRN Reason: FEVER Last Admin: 07/12/18 08:53 Dose: 1,000 mg Ascorbic Acid (Vitamin C -) 500 mg PO BID JEF Last Admin: 07/13/18 10:15 Dose: 500 mg Collagenase (Santyl -) 1 applic TP DAILY JEF; Protocol Last Admin: 07/13/18 10:15 Dose: 1 applic Cyanocobalamin (Vitamin B12 -) 1,000 mcg PO DAILY JFE Last Admin: 07/13/18 10:20 Dose: 1,000 mcg Folic Acid (Folic Acid -) 1 mg PO DAILY JEF Last Admin: 07/13/18 10:15 Dose: 1 mg IV Flush (Picc Line Flush) 8 ml IVPUSH PRN PRN PRN Reason: Protocol Norepinephrine Bitartrate 8, (000 mcg/ Sodium Chloride) 250 mls @ 9.37 mls/hr IV TITR JEF; Protocol Last Admin: 07/13/18 13:50 Dose: 15 mcg/min, 28.12 mls/hr Vasopressin 50 units/ Sodium (Chloride) 100 mls @ 4 mls/hr IVPB ASDIR JEF; Protocol Last Admin: 07/12/18 15:47 Dose: 2 units/hr, 4 mls/hr Metronidazole (Flagyl 500mg Premixed Ivpb -) 500 mg in 100 mls @ 100 mls/hr IVPB Q8H-IV JEF Last Admin: 07/13/18 10:15 Dose: 100 mls/hr Insulin Aspart (Novolog Vial Sliding Scale -) 1 vial SQ TIDAC JEF; Protocol Last Admin: 07/13/18 13:50 Dose: 2 units Lactobacillus Acidophilus (Bacid -) 1 tab PO DAILY JEF Last Admin: 07/13/18 10:15 Dose: 1 tab Multi-Ingredient Ointment (Zinc Oxide) 1 applic TP BID JEF Last Admin: 07/13/18 10:20 Dose: 1 applic Ranitidine HCl (Zantac -) 150 mg PO BID COUNTS INCLUDE 234 BEDS AT THE [facility] Last Admin: 07/13/18 10:20 Dose: 150 mg Vancomycin HCl (Vancomycin Oral Solution) 125 mg PO Q6HPO JEF Last Admin: 07/13/18 13:49 Dose: 125 mg Zinc Sulfate (Orazinc -) 220 mg PO DAILY JEF Last Admin: 07/13/18 10:15 Dose: 220 mg - Objective Vital Signs: Vital Signs Temperature 99.5 F 07/13/18 10:00 Pulse Rate 92 H 07/13/18 12:00 Respiratory Rate 32 H 07/13/18 12:00 Blood Pressure 106/65 07/13/18 12:00 O2 Sat by Pulse Oximetry (%) 99 07/13/18 08:30 Constitutional: Yes: Other Cardiovascular: Yes: Regular Rate and Rhythm Respiratory: Yes: Intubated, Mechanically Ventilated Gastrointestinal: Yes: Hypoactive Bowel Sounds, Other (peg in place) Musculoskeletal: Yes: Other Extremities: Yes: Other Edema: LLE: 2+, RLE: 2+ Neurological: Yes: Other Psychiatric: Yes: Other Labs: CBC, BMP 07/13/18 05:30 07/13/18 05:30 INR, PTT INR 3.04 (0.83-1.09) H 07/13/18 05:30 Fibrinogen < 100.0 mg/dL (238-498) L* D 07/12/18 05:30 Assessment/Plan patient with multiple medical problems coming in with sepsis uti and bacteremia with elevated liver enzymes and fever nimisha gm negative bacteremia wound infection dm sepsis uti 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 (3) Abnormal liver enzymes Code(s): R74.8 - ABNORMAL LEVELS OF OTHER SERUM ENZYMES (4) Sacral decubitus ulcer, stage IV Code(s): L89.154 - PRESSURE ULCER OF SACRAL REGION, STAGE 4 (5) Sepsis Code(s): A41.9 - SEPSIS, UNSPECIFIED ORGANISM Qualifiers: Sepsis type: sepsis due to unspecified organism Qualified Code(s): A41.9 - Sepsis, unspecified organism (6) Anemia Code(s): D64.9 - ANEMIA, UNSPECIFIED (7) Bacteremia Code(s): R78.81 - BACTEREMIA (8) Fever Code(s): R50.9 - FEVER, UNSPECIFIED Qualifiers: Fever type: unspecified Qualified Code(s): R50.9 - Fever, unspecified (9) Basilic vein thrombosis Code(s): I82.619 - ACUTE EMBOLISM AND THROMBOSIS OF SUPERFIC VN UNSP UP EXTREM patient wound dressing changed wound with foul smelling discharge plan continue current mgmt wound care resp support nutrition rest as per icu family planning final plan patients prognosis guarded/poor cc 38 min
--- NOTE | 2018-07-13 14:59 | PN ---
Progress Note, Physician History of Present Illness: Pt seen and examined at bedside. He remains in the ICU. He remains intubated. - Current Medication List Current Medications: Active Medications Acetaminophen (Ofirmev Injection -) 1,000 mg IVPB Q6H PRN PRN Reason: FEVER Last Admin: 07/12/18 08:53 Dose: 1,000 mg Ascorbic Acid (Vitamin C -) 500 mg PO BID JEF Last Admin: 07/13/18 10:15 Dose: 500 mg Collagenase (Santyl -) 1 applic TP DAILY JEF; Protocol Last Admin: 07/13/18 10:15 Dose: 1 applic Cyanocobalamin (Vitamin B12 -) 1,000 mcg PO DAILY JEF Last Admin: 07/13/18 10:20 Dose: 1,000 mcg Folic Acid (Folic Acid -) 1 mg PO DAILY JEF Last Admin: 07/13/18 10:15 Dose: 1 mg IV Flush (Picc Line Flush) 8 ml IVPUSH PRN PRN PRN Reason: Protocol Norepinephrine Bitartrate 8, (000 mcg/ Sodium Chloride) 250 mls @ 9.37 mls/hr IV TITR JEF; Protocol Last Admin: 07/13/18 13:50 Dose: 15 mcg/min, 28.12 mls/hr Vasopressin 50 units/ Sodium (Chloride) 100 mls @ 4 mls/hr IVPB ASDIR JEF; Protocol Last Admin: 07/12/18 15:47 Dose: 2 units/hr, 4 mls/hr Metronidazole (Flagyl 500mg Premixed Ivpb -) 500 mg in 100 mls @ 100 mls/hr IVPB Q8H-IV JEF Last Admin: 07/13/18 10:15 Dose: 100 mls/hr Insulin Aspart (Novolog Vial Sliding Scale -) 1 vial SQ TIDAC JEF; Protocol Last Admin: 07/13/18 13:50 Dose: 2 units Lactobacillus Acidophilus (Bacid -) 1 tab PO DAILY JEF Last Admin: 07/13/18 10:15 Dose: 1 tab Multi-Ingredient Ointment (Zinc Oxide) 1 applic TP BID JEF Last Admin: 07/13/18 10:20 Dose: 1 applic Ranitidine HCl (Zantac -) 150 mg PO BID JEF Last Admin: 07/13/18 10:20 Dose: 150 mg Vancomycin HCl (Vancomycin Oral Solution) 125 mg PO Q6HPO JEF Last Admin: 10/23/18 13:49 Dose: 125 mg Zinc Sulfate (Orazinc -) 220 mg PO DAILY JEF Last Admin: 07/13/18 10:15 Dose: 220 mg - Objective Vital Signs: Vital Signs Temperature 99.5 F 07/13/18 10:00 Pulse Rate 92 H 07/13/18 12:00 Respiratory Rate 32 H 07/13/18 12:00 Blood Pressure 106/65 07/13/18 12:00 O2 Sat by Pulse Oximetry (%) 99 07/13/18 08:30 Constitutional: Yes: Calm Eyes: Yes: Conjunctiva Clear Cardiovascular: Yes: S1, S2 Respiratory: Yes: Mechanically Ventilated Gastrointestinal: Yes: Soft Genitourinary: Yes: Oliguria Musculoskeletal: Yes: Muscle Weakness Edema: Yes Edema: LUE: 1+, RUE: 1+, LLE: 1+, RLE: 1+ Neurological: Yes: Lethargy Labs: CBC, BMP 07/13/18 05:30 07/13/18 05:30 INR, PTT INR 3.04 (0.83-1.09) H 07/13/18 05:30 Fibrinogen < 100.0 mg/dL (238-498) L* D 07/12/18 05:30 - ....Imaging Chest X-ray: Report Reviewed Problem List - Problems (1) JORDAN (acute kidney injury) Code(s): N17.9 - ACUTE KIDNEY FAILURE, UNSPECIFIED (2) Hyponatremia Code(s): E87.1 - HYPO-OSMOLALITY AND HYPONATREMIA Assessment/Plan Current Medications Generic Name Dose Route Start Last Admin Trade Name Denae PRN Reason Stop Dose Admin Acetaminophen 1,000 mg 07/02/18 04:52 07/12/18 08:53 Ofirmev Injection - IVPB 1,000 mg Q6H PRN Administration FEVER Ascorbic Acid 500 mg 06/13/18 22:00 07/13/18 10:15 Vitamin C - PO 500 mg BID JEF Administration Collagenase 1 applic 07/08/18 10:00 07/13/18 10:15 Santyl - TP 1 applic DAILY JEF Administration Protocol Cyanocobalamin 1,000 mcg 07/10/18 14:45 07/13/18 10:20 Vitamin B12 - PO 1,000 mcg DAILY JEF Administration Folic Acid 1 mg 06/15/18 10:00 07/13/18 10:15 Folic Acid - PO 1 mg DAILY JEF Administration IV Flush 8 ml 06/21/18 09:17 Picc Line Flush IVPUSH PRN PRN Protocol Norepinephrine Bitartrate 8, 250 mls @ 9.37 mls/hr 07/04/18 11:08 07/13/18 13 :50 000 mcg/ Sodium Chloride IV 15 mcg/min TITR JEF 28.12 mls/hr Administration Protocol 5 MCG/MIN Vasopressin 50 units/ Sodium 100 mls @ 4 mls/hr 07/08/18 10:15 07/12/18 15:47 Chloride IVPB 2 units/hr ASDIR JEF 4 mls/hr Administration Protocol 2 UNITS/HR Metronidazole 500 mg in 100 mls @ 100 mls/hr 07/08/18 18:00 07/13/18 10:15 Flagyl 500mg Premixed Ivpb - IVPB 100 mls/hr Q8H-IV JEF Administration Insulin Aspart 1 vial 07/03/18 07:00 07/13/18 13:50 Novolog Vial Sliding Scale - SQ 2 units TIDAC JEF Administration Protocol Lactobacillus Acidophilus 1 tab 07/07/18 11:15 07/13/18 10:15 Bacid - PO 1 tab DAILY JEF Administration Multi-Ingredient Ointment 1 applic 06/13/18 22:00 07/13/18 10:20 Zinc Oxide TP 1 applic BID JEF Administration Ranitidine HCl 150 mg 07/06/18 10:00 07/13/18 10:20 Zantac - PO 150 mg BID JEF Administration Vancomycin HCl 125 mg 07/08/18 18:00 07/13/18 13:49 Vancomycin Oral Solution PO 125 mg Q6HPO JEF Administration Zinc Sulfate 220 mg 06/21/18 10:00 07/13/18 10:15 Orazinc - PO 220 mg DAILY JEF Administration Impression 1. hyponatremia 2. JORDAN 3. resp failure s/p intubation 4. possible liver mets 5. s/p peg 6. s/p sepsis 7. CAD 8. HTN 9. hyperlipidemia 10. parkinsons 11. DM 12. anemia Plan - pt was last dialyzed yesterday - replace lytes - vent support - family/ethics meeting today - pressors for map of 65 - will follow - minimize fluid intake Dr Coe
[2018-07-13] MEDS ORDERED: MORPHINE 100 MG in SODIUM CHLORIDE 98 ML IVPB SCH (15:30)
[2018-07-13] MEDS ORDERED: MORPHINE SULFATE 2 MG/ML VIAL IVPUSH ONE (15:31)
[2018-07-13] MEDS ORDERED: LORazepam 2 MG/ML SDV VIAL IVPUSH PRN (15:31)
[2018-07-13] MEDS ORDERED: MORPHINE 100 MG/100 ML MG ONE (16:00)
--- NOTE | 2018-07-13 19:09 | PN ---
Progress Note (short form) - Note Progress Note: An ethics meeting was held this afternoon at 1:30 PM in the palliative care room at [facility] on 5. The patient's healthcare proxy Kassy, the palliative care team including pastoral care and our palliative care nurse, risk management, performance improvement, manager of case, marriage and family social worker and Dr. Bhandari ICU attending were in attendance. Everyone was asked to introduce themselves and after the introduction Dr. Bermudez gave the summary of the patient's current medical condition emphasizing his multiorgan failure which includes pulmonary, cardiac, renal, hematologic, cerebral, and hepatic systems. The patient's is also known to be septic and has a large sacral ulcer. The doctor emphasized that even the medications that are being utilized to keep his blood pressure reasonable are causing side effects with vasoconstriction and changing his indwelling IV lines would create a further crisis The patient also is known to have an extremely elevated CA 19.9 level and CEA titer with liver and bone metastases. There is no thought of any meaningful survival for the patient. Kassy has said she is now realizing that he is dying and at the end of life. She has been been at the patient's side every day and has been his most outspoken advocate. She realizes now that further continuation of his life sustaining treatment including ventilator support, dialysis, blood testing and maybe even turning could be causing him more suffering and pain even though it is not visible to the eyes. The process and reasons for compassionate extubation were presented and the reasons for the use of morphine and Ativan when this procedure has begun were explained fully to the patient by . She had agreed to sign for a DNR and withdrawing of the ventilator and stopping blood testing. She will decide when she wishes the process to begin. She was asked if she had any further questions and they were none from her or the group present. The median adjourned at approximately 2;30 pm.
--- NOTE | 2018-07-14 01:01 | PN ---
Progress Note (short form) - Note Progress Note: I was called to see patient for unresponsiveness. On exam the patient did not respond to verbal or physical stimuli and no spontaneous movement was observed. Absent heart and breath sounds for more than one minute. Absent peripheral pulses. Pupils are fixed and dilated, corneal reflex was absent. Patient pronounced at 1241. Family at bedside
[2018-07-14 02:44] VITALS: BP 50/24; PULSE 44; TEMP 97
== END 2018-07-14 01:00 | disposition expired | DRG 870 ==
LOC: JER 16:28 → J5S 18:08 → J7W 06-15 20:44 → JICU 07-02 03:53
PROVIDERS: ADMIT Family Medicine; ATTEND Family Medicine
PROC: 0DH63UZ Insertion of Feeding Device into Stomach, Percutaneous Approach (ICD-10-PCS; 2018-06-29)
PROC: 5A1955Z Respiratory Ventilation, Greater than 96 Consecutive Hours (ICD-10-PCS; principal; 2018-07-02)
PROC: 0BH17EZ Insertion of Endotracheal Airway into Trachea, Via Natural or Artificial Opening (ICD-10-PCS; 2018-07-02)
PROC: 05HM33Z Insertion of Infusion Device into Right Internal Jugular Vein, Percutaneous Approach (ICD-10-PCS; 2018-07-02)
PROC: B513ZZA Fluoroscopy of Right Jugular Veins, Guidance (ICD-10-PCS; 2018-07-02)
PROC: B543ZZA Ultrasonography of Right Jugular Veins, Guidance (ICD-10-PCS; 2018-07-02)
PROC: 05HN33Z Insertion of Infusion Device into Left Internal Jugular Vein, Percutaneous Approach (ICD-10-PCS; 2018-07-06)
PROC: B514ZZA Fluoroscopy of Left Jugular Veins, Guidance (ICD-10-PCS; 2018-07-06)
PROC: B544ZZA Ultrasonography of Left Jugular Veins, Guidance (ICD-10-PCS; 2018-07-06)
PROC: 5A1D70Z Performance of Urinary Filtration, Intermittent, Less than 6 Hours Per Day (ICD-10-PCS; 2018-07-09)
DX: A41.4 Sepsis due to anaerobes (principal); L89.154 Pressure ulcer of sacral region, stage 4; G93.41 Metabolic encephalopathy; J96.01 Acute respiratory failure with hypoxia; N18.6 End stage renal disease; R65.21 Severe sepsis with septic shock; J69.0 Pneumonitis due to inhalation of food and vomit; D65 Disseminated intravascular coagulation [defibrination syndrome]; E87.2 Acidosis; I69.351 Hemiplegia and hemiparesis following cerebral infarction affecting right dominant side; R64 Cachexia; C79.51 Secondary malignant neoplasm of bone; C78.7 Secondary malignant neoplasm of liver and intrahepatic bile duct; N39.0 Urinary tract infection, site not specified; N17.9 Acute kidney failure, unspecified; I82.619 Acute embolism and thrombosis of superficial veins of unspecified upper extremity; E87.1 Hypo-osmolality and hyponatremia; C25.9 Malignant neoplasm of pancreas, unspecified; R17 Unspecified jaundice; I12.9 Hypertensive chronic kidney disease with stage 1 through stage 4 chronic kidney disease, or unspecified chronic kidney disease; E10.22 Type 1 diabetes mellitus with diabetic chronic kidney disease; N18.9 Chronic kidney disease, unspecified; G20 Parkinson's disease; J44.9 Chronic obstructive pulmonary disease, unspecified; I10 Essential (primary) hypertension; I48.0 Paroxysmal atrial fibrillation; E88.09 Other disorders of plasma-protein metabolism, not elsewhere classified; D53.9 Nutritional anemia, unspecified; R63.0 Anorexia; R16.0 Hepatomegaly, not elsewhere classified; Z79.4 Long term (current) use of insulin; D50.9 Iron deficiency anemia, unspecified; I25.10 Atherosclerotic heart disease of native coronary artery without angina pectoris; N32.81 Overactive bladder; K30 Functional dyspepsia; G47.00 Insomnia, unspecified; F32.9 Major depressive disorder, single episode, unspecified; Z74.01 Bed confinement status; K59.09 Other constipation; R62.7 Adult failure to thrive; R74.8 Abnormal levels of other serum enzymes; Z68.24 Body mass index [BMI] 24.0-24.9, adult; R54 Age-related physical debility; B96.29 Other Escherichia coli [E. coli] as the cause of diseases classified elsewhere; B96.4 Proteus (mirabilis) (morganii) as the cause of diseases classified elsewhere; B95.2 Enterococcus as the cause of diseases classified elsewhere; B95.62 Methicillin resistant Staphylococcus aureus infection as the cause of diseases classified elsewhere; Z16.12 Extended spectrum beta lactamase (ESBL) resistance; Z51.5 Encounter for palliative care; B37.2 Candidiasis of skin and nail; Z53.1 Procedure and treatment not carried out because of patient's decision for reasons of belief and group pressure; R19.7 Diarrhea, unspecified; M62.461 Contracture of muscle, right lower leg
CPT/HCPCS: 31500; 36415; 36600; 43752; 49440; 71045-TC-FY; 74018-TC-FY; 74181-TC; 76775-TC; 76856-TC; 80048; 80053; 80074; 80076; 81003; 81015; 82105; 82140; 82248; 82272; 82378; 82436; 82533; 82550; 82553; 82607; 82728; 82747; 82803; 82962; 82977; 83540; 83550; 83605; 83690; 83735; 83930; 83935; 84100; 84133; 84153; 84300; 84439; 84443; 84484; 84597; 85014; 85025; 85027; 85384; 85610; 85730; 86301; 86850; 86900; 86901; 86922; 87040; 87045; 87046; 87070; 87077; 87086; 87186; 87205; 87324; 87449; 92611-GN; 93005; 93010; 93971; 94002; 94640; 97116-GP; 97161-GP; 99285-25; C1769; C1887; E0186; J0131; J0878; J0885; J1644; J1756; J7030; P9047